=== PATIENT | female | born 1940 | race Caucasian/White ===

== ENCOUNTER → 2023-02-26 10:10 | Inpatient (IN) | payer MEDICARE, SELFPAY, BC ==
[2021-12-27] MEDS: AMLODIPINE 10 MG TABLET PO (07:33)
[2021-12-27] MEDS: BUSPIRONE 10 MG TABLET PO ×2 (07:33→16:14)
[2021-12-27] MEDS: lisinopriL 40 MG TABLET PO (07:33)
[2021-12-27] MEDS: FUROSEMIDE 20 MG TABLET PO (07:33)
[2021-12-27] MEDS: ASPIRIN EC 325 MG TABLET PO (07:33)
[2021-12-27] MEDS: FLUOXETINE HCL 20 MG CAPSULE PO (07:33)
[2021-12-27] MEDS: FLUOXETINE HCL 40 MG CAPSULE PO (07:33)
[2021-12-27] MEDS: METOPROLOL TARTRATE 50 MG TABLET PO ×2 (07:34→16:16)
[2021-12-27] MEDS: ROSUVASTATIN CALCIUM 20 MG TABLET PO (07:34)
[2021-12-27] MEDS: PRESERVISION AREDS 1 EACH PO ×2 (07:34→16:17)
[2021-12-27] MEDS: POTASSIUM CHLORIDE 20 MEQ TAB.ER.PRT 40 MEQ PO ×2 (07:34→16:18)
[2021-12-27] MEDS: TRAMADOL HCL 50 MG TABLET PO ×3 (07:35→19:41)
[2021-12-27] MEDS: INSULIN GLARGINE,HUM.REC.ANLOG 100 UNIT/ML INSULN.PEN 22 UNIT SUBCUT (08:28)
[2021-12-27 16:00] VITALS: TEMP 36.8; O2SAT 97
[2021-12-28] MEDS: AMLODIPINE 10 MG TABLET PO (08:46)
[2021-12-28] MEDS: INSULIN GLARGINE,HUM.REC.ANLOG 100 UNIT/ML INSULN.PEN 22 UNIT SUBCUT (08:46)
[2021-12-28] MEDS: BUSPIRONE 10 MG TABLET PO ×2 (08:46→15:39)
[2021-12-28] MEDS: ASPIRIN EC 325 MG TABLET PO (08:46)
[2021-12-28] MEDS: FLUOXETINE HCL 40 MG CAPSULE PO (08:47)
[2021-12-28] MEDS: lisinopriL 40 MG TABLET PO (08:47)
[2021-12-28] MEDS: FUROSEMIDE 20 MG TABLET PO (08:47)
[2021-12-28] MEDS: METOPROLOL TARTRATE 50 MG TABLET PO ×2 (08:47→15:39)
[2021-12-28] MEDS: ROSUVASTATIN CALCIUM 20 MG TABLET PO (08:48)
[2021-12-28] MEDS: FLUOXETINE HCL 20 MG CAPSULE PO (08:48)
[2021-12-28] MEDS: POTASSIUM CHLORIDE 20 MEQ TAB.ER.PRT 40 MEQ PO ×2 (08:48→15:40)
[2021-12-28] MEDS: PRESERVISION AREDS 1 EACH PO ×2 (08:48→15:39)
[2021-12-28] MEDS: TRAMADOL HCL 50 MG TABLET PO ×3 (08:48→20:34)
[2021-12-28 16:00] VITALS: TEMP 35.6; O2SAT 95
[2021-12-29] MEDS: AMLODIPINE 10 MG TABLET PO (08:42)
[2021-12-29] MEDS: ASPIRIN EC 325 MG TABLET PO (08:43)
[2021-12-29] MEDS: FUROSEMIDE 20 MG TABLET PO (08:43)
[2021-12-29] MEDS: BUSPIRONE 10 MG TABLET PO ×2 (08:43→15:04)
[2021-12-29] MEDS: FLUOXETINE HCL 20 MG CAPSULE PO (08:43)
[2021-12-29] MEDS: lisinopriL 40 MG TABLET PO (08:43)
[2021-12-29] MEDS: FLUOXETINE HCL 40 MG CAPSULE PO (08:43)
[2021-12-29] MEDS: METOPROLOL TARTRATE 50 MG TABLET PO ×2 (08:44→15:04)
[2021-12-29] MEDS: POTASSIUM CHLORIDE 20 MEQ TAB.ER.PRT 40 MEQ PO ×2 (08:44→15:05)
[2021-12-29] MEDS: PRESERVISION AREDS 1 EACH PO ×2 (08:44→15:04)
[2021-12-29] MEDS: ROSUVASTATIN CALCIUM 20 MG TABLET PO (08:44)
[2021-12-29] MEDS: INSULIN GLARGINE,HUM.REC.ANLOG 100 UNIT/ML INSULN.PEN 22 UNIT SUBCUT (08:45)
[2021-12-29] MEDS: TRAMADOL HCL 50 MG TABLET PO ×3 (08:45→20:43)
--- NOTE | 2021-12-29 14:37 | PC.PHA ---
Pharmacy Review ~ Tramadol prn needed minimally in past two months. Scheduled pregabalin and tramadol for pain management. Blood pressures continue to run higher than normal so amlodipine, metoprolol, furosemide and lisinopril continue to be indicated. Potassium 40 meq bid also profiled. Patient also continues on insulins, asa 325 mg and rosuvastatin.
[2021-12-29 16:00] VITALS: TEMP 35.4; O2SAT 95
[2021-12-30] MEDS: FLUOXETINE HCL 40 MG CAPSULE PO (07:46)
[2021-12-30] MEDS: ASPIRIN EC 325 MG TABLET PO (07:46)
[2021-12-30] MEDS: AMLODIPINE 10 MG TABLET PO (07:46)
[2021-12-30] MEDS: BUSPIRONE 10 MG TABLET PO ×2 (07:46→15:06)
[2021-12-30] MEDS: INSULIN GLARGINE,HUM.REC.ANLOG 100 UNIT/ML INSULN.PEN 22 UNIT SUBCUT (07:46)
[2021-12-30] MEDS: PRESERVISION AREDS 1 EACH PO ×2 (07:47→15:06)
[2021-12-30] MEDS: lisinopriL 40 MG TABLET PO (07:47)
[2021-12-30] MEDS: FLUOXETINE HCL 20 MG CAPSULE PO (07:47)
[2021-12-30] MEDS: FUROSEMIDE 20 MG TABLET PO (07:47)
[2021-12-30] MEDS: METOPROLOL TARTRATE 50 MG TABLET PO ×2 (07:47→15:06)
[2021-12-30] MEDS: TRAMADOL HCL 50 MG TABLET PO ×3 (07:47→19:39)
[2021-12-30] MEDS: POTASSIUM CHLORIDE 20 MEQ TAB.ER.PRT 40 MEQ PO ×2 (07:47→15:07)
[2021-12-30] MEDS: ROSUVASTATIN CALCIUM 20 MG TABLET PO (07:47)
[2021-12-30 16:52] VITALS: TEMP 35.5; O2SAT 98
[2021-12-30 16:53] VITALS: BP 148/85; PULSE 62; RESP 18; TEMP 35.5; O2SAT 96
[2021-12-31] MEDS: AMLODIPINE 10 MG TABLET PO (07:34)
[2021-12-31] MEDS: ASPIRIN EC 325 MG TABLET PO (07:35)
[2021-12-31] MEDS: FLUOXETINE HCL 40 MG CAPSULE PO (07:35)
[2021-12-31] MEDS: BUSPIRONE 10 MG TABLET PO ×2 (07:35→15:37)
[2021-12-31] MEDS: FUROSEMIDE 20 MG TABLET PO (07:35)
[2021-12-31] MEDS: METOPROLOL TARTRATE 50 MG TABLET PO ×2 (07:35→15:37)
[2021-12-31] MEDS: lisinopriL 40 MG TABLET PO (07:35)
[2021-12-31] MEDS: FLUOXETINE HCL 20 MG CAPSULE PO (07:35)
[2021-12-31] MEDS: INSULIN GLARGINE,HUM.REC.ANLOG 100 UNIT/ML INSULN.PEN 22 UNIT SUBCUT (07:35)
[2021-12-31] MEDS: PRESERVISION AREDS 1 EACH PO ×2 (07:35→15:37)
[2021-12-31] MEDS: POTASSIUM CHLORIDE 20 MEQ TAB.ER.PRT 40 MEQ PO ×2 (07:36→15:37)
[2021-12-31] MEDS: TRAMADOL HCL 50 MG TABLET PO ×3 (07:36→19:16)
[2021-12-31] MEDS: ROSUVASTATIN CALCIUM 20 MG TABLET PO (07:36)
[2021-12-31 16:00] VITALS: TEMP 35.9; O2SAT 96
[2022-01-01] MEDS: ASPIRIN EC 325 MG TABLET PO (07:49)
[2022-01-01] MEDS: AMLODIPINE 10 MG TABLET PO (07:49)
[2022-01-01] MEDS: ROSUVASTATIN CALCIUM 20 MG TABLET PO (07:50)
[2022-01-01] MEDS: FLUOXETINE HCL 20 MG CAPSULE PO (07:50)
[2022-01-01] MEDS: FLUOXETINE HCL 40 MG CAPSULE PO (07:50)
[2022-01-01] MEDS: METOPROLOL TARTRATE 50 MG TABLET PO ×2 (07:50→15:02)
[2022-01-01] MEDS: PRESERVISION AREDS 1 EACH PO ×2 (07:50→15:02)
[2022-01-01] MEDS: FUROSEMIDE 20 MG TABLET PO (07:50)
[2022-01-01] MEDS: INSULIN GLARGINE,HUM.REC.ANLOG 100 UNIT/ML INSULN.PEN 22 UNIT SUBCUT (07:50)
[2022-01-01] MEDS: POTASSIUM CHLORIDE 20 MEQ TAB.ER.PRT 40 MEQ PO ×2 (07:50→15:02)
[2022-01-01] MEDS: BUSPIRONE 10 MG TABLET PO ×2 (07:50→15:02)
[2022-01-01] MEDS: lisinopriL 40 MG TABLET PO (07:50)
[2022-01-01] MEDS: TRAMADOL HCL 50 MG TABLET PO ×3 (07:50→19:06)
[2022-01-01 16:00] VITALS: TEMP 35.9; O2SAT 94
[2022-01-01] MEDS: MAG HYDROX/ALUMINUM HYD/SIMETH 30 ML ORAL.SUSP PO (16:13)
--- NOTE | 2022-01-01 21:54 | PC.NURSE ---
Status: ANISH reported scant amount of blood when wiping bottom. Resident was sitting on toilet for over 15 minutes attempting BM. Has history of hemorrhoids. Vault Installer did not observe any bleeding while on toilet while getting ready for bed this evening. Will continue to monitor.
[2022-01-02] MEDS: AMLODIPINE 10 MG TABLET PO (07:46)
[2022-01-02] MEDS: INSULIN GLARGINE,HUM.REC.ANLOG 100 UNIT/ML INSULN.PEN 22 UNIT SUBCUT (07:46)
[2022-01-02] MEDS: ASPIRIN EC 325 MG TABLET PO (07:46)
[2022-01-02] MEDS: FUROSEMIDE 20 MG TABLET PO (07:47)
[2022-01-02] MEDS: FLUOXETINE HCL 40 MG CAPSULE PO (07:47)
[2022-01-02] MEDS: BUSPIRONE 10 MG TABLET PO ×2 (07:47→15:17)
[2022-01-02] MEDS: FLUOXETINE HCL 20 MG CAPSULE PO (07:47)
[2022-01-02] MEDS: lisinopriL 40 MG TABLET PO (07:48)
[2022-01-02] MEDS: METOPROLOL TARTRATE 50 MG TABLET PO ×2 (07:48→15:17)
[2022-01-02] MEDS: PRESERVISION AREDS 1 EACH PO ×2 (07:48→15:17)
[2022-01-02] MEDS: POTASSIUM CHLORIDE 20 MEQ TAB.ER.PRT 40 MEQ PO ×2 (07:49→15:17)
[2022-01-02] MEDS: ROSUVASTATIN CALCIUM 20 MG TABLET PO (07:49)
[2022-01-02] MEDS: TRAMADOL HCL 50 MG TABLET PO ×3 (07:49→19:17)
[2022-01-02 16:23] VITALS: TEMP 35.7; O2SAT 96
[2022-01-03] MEDS: AMLODIPINE 10 MG TABLET PO (07:58)
[2022-01-03] MEDS: ASPIRIN EC 325 MG TABLET PO (07:58)
[2022-01-03] MEDS: FLUOXETINE HCL 20 MG CAPSULE PO (07:59)
[2022-01-03] MEDS: INSULIN GLARGINE,HUM.REC.ANLOG 100 UNIT/ML INSULN.PEN 22 UNIT SUBCUT (07:59)
[2022-01-03] MEDS: lisinopriL 40 MG TABLET PO (07:59)
[2022-01-03] MEDS: BUSPIRONE 10 MG TABLET PO ×2 (07:59→15:43)
[2022-01-03] MEDS: METOPROLOL TARTRATE 50 MG TABLET PO ×2 (07:59→15:43)
[2022-01-03] MEDS: FUROSEMIDE 20 MG TABLET PO (07:59)
[2022-01-03] MEDS: FLUOXETINE HCL 40 MG CAPSULE PO (07:59)
[2022-01-03] MEDS: PRESERVISION AREDS 1 EACH PO ×2 (08:01→15:43)
[2022-01-03] MEDS: POTASSIUM CHLORIDE 20 MEQ TAB.ER.PRT 40 MEQ PO ×2 (08:01→15:43)
[2022-01-03] MEDS: ROSUVASTATIN CALCIUM 20 MG TABLET PO (08:01)
[2022-01-03] MEDS: TRAMADOL HCL 50 MG TABLET PO ×3 (08:02→19:53)
[2022-01-03 16:00] VITALS: TEMP 36.1; O2SAT 98
[2022-01-04] MEDS: AMLODIPINE 10 MG TABLET PO (07:46)
[2022-01-04] MEDS: FLUOXETINE HCL 40 MG CAPSULE PO (07:47)
[2022-01-04] MEDS: FLUOXETINE HCL 20 MG CAPSULE PO (07:47)
[2022-01-04] MEDS: BUSPIRONE 10 MG TABLET PO ×2 (07:47→15:30)
[2022-01-04] MEDS: ASPIRIN EC 325 MG TABLET PO (07:47)
[2022-01-04] MEDS: PRESERVISION AREDS 1 EACH PO ×2 (07:49→15:30)
[2022-01-04] MEDS: FUROSEMIDE 20 MG TABLET PO (07:49)
[2022-01-04] MEDS: lisinopriL 40 MG TABLET PO (07:49)
[2022-01-04] MEDS: METOPROLOL TARTRATE 50 MG TABLET PO ×2 (07:49→15:30)
[2022-01-04] MEDS: ROSUVASTATIN CALCIUM 20 MG TABLET PO (07:50)
[2022-01-04] MEDS: POTASSIUM CHLORIDE 20 MEQ TAB.ER.PRT 40 MEQ PO ×2 (07:50→15:31)
[2022-01-04] MEDS: TRAMADOL HCL 50 MG TABLET PO ×3 (07:51→20:01)
[2022-01-04] MEDS: INSULIN GLARGINE,HUM.REC.ANLOG 100 UNIT/ML INSULN.PEN 22 UNIT SUBCUT (08:24)
[2022-01-04 16:00] VITALS: TEMP 35.9; O2SAT 96
--- NOTE | 2022-01-05 02:18 | PC.NURSE ---
Week #1 Care Plan problems 1-19 and Temporary Care Plan reveiwed, no changes made, noting added. Resident sleeps through the night. Receives scheduled Ultram 50mg TID for pain. VS reviewed and are within normal range.
[2022-01-05] MEDS: AMLODIPINE 10 MG TABLET PO (07:22)
[2022-01-05] MEDS: ASPIRIN EC 325 MG TABLET PO (07:22)
[2022-01-05] MEDS: FLUOXETINE HCL 20 MG CAPSULE PO (07:23)
[2022-01-05] MEDS: METOPROLOL TARTRATE 50 MG TABLET PO ×2 (07:23→15:27)
[2022-01-05] MEDS: FUROSEMIDE 20 MG TABLET PO (07:23)
[2022-01-05] MEDS: TRAMADOL HCL 50 MG TABLET PO ×3 (07:23→19:19)
[2022-01-05] MEDS: lisinopriL 40 MG TABLET PO (07:23)
[2022-01-05] MEDS: ROSUVASTATIN CALCIUM 20 MG TABLET PO (07:23)
[2022-01-05] MEDS: BUSPIRONE 10 MG TABLET PO ×2 (07:23→15:27)
[2022-01-05] MEDS: POTASSIUM CHLORIDE 20 MEQ TAB.ER.PRT 40 MEQ PO ×2 (07:23→15:28)
[2022-01-05] MEDS: FLUOXETINE HCL 40 MG CAPSULE PO (07:23)
[2022-01-05] MEDS: PRESERVISION AREDS 1 EACH PO ×2 (07:23→15:28)
[2022-01-05] MEDS: INSULIN GLARGINE,HUM.REC.ANLOG 100 UNIT/ML INSULN.PEN 22 UNIT SUBCUT (07:26)
--- NOTE | 2022-01-05 12:41 | PC.NURSE ---
Week #1: Care Plan problems #1-19 and temporary care plan reviewed. No changes made and nothing added to care plan. Receives Tramadol 50 mg AM and PM for pain management. Resident denies pain, and no pain reported at this time. Due to right sided weakness, resident is extensive assist of one for all ADLs including bathing, dressing, and glooming. Resident is able to brush her teeth after set-up assistance. Nutrition: Independent with eating after staff set-up meal trays and open milk/juice cartons and pour content in drinking glasses for resident. No changes in eating pattern, no decrease appetite, choking, or swallowing difficulty noted so far.
[2022-01-05 16:00] VITALS: TEMP 36.1; O2SAT 95
[2022-01-05 21:35] VITALS: BP 152/77; PULSE 61; RESP 18; TEMP 36.1; O2SAT 95
[2022-01-06] MEDS: AMLODIPINE 10 MG TABLET PO (07:40)
[2022-01-06] MEDS: ASPIRIN EC 325 MG TABLET PO (07:40)
[2022-01-06] MEDS: BUSPIRONE 10 MG TABLET PO ×2 (07:40→15:16)
[2022-01-06] MEDS: METOPROLOL TARTRATE 50 MG TABLET PO ×2 (07:41→15:16)
[2022-01-06] MEDS: FLUOXETINE HCL 20 MG CAPSULE PO (07:41)
[2022-01-06] MEDS: lisinopriL 40 MG TABLET PO (07:41)
[2022-01-06] MEDS: FUROSEMIDE 20 MG TABLET PO (07:41)
[2022-01-06] MEDS: FLUOXETINE HCL 40 MG CAPSULE PO (07:41)
[2022-01-06] MEDS: POTASSIUM CHLORIDE 20 MEQ TAB.ER.PRT 40 MEQ PO ×2 (07:42→15:17)
[2022-01-06] MEDS: PRESERVISION AREDS 1 EACH PO ×2 (07:42→15:17)
[2022-01-06] MEDS: ROSUVASTATIN CALCIUM 20 MG TABLET PO (07:42)
[2022-01-06] MEDS: TRAMADOL HCL 50 MG TABLET PO ×3 (07:43→21:16)
[2022-01-06] MEDS: INSULIN GLARGINE,HUM.REC.ANLOG 100 UNIT/ML INSULN.PEN 22 UNIT SUBCUT (07:53)
[2022-01-06 21:35] VITALS: TEMP 35.7; O2SAT 96
[2022-01-07] MEDS: FLUOXETINE HCL 40 MG CAPSULE PO (07:48)
[2022-01-07] MEDS: BUSPIRONE 10 MG TABLET PO ×2 (07:48→15:24)
[2022-01-07] MEDS: AMLODIPINE 10 MG TABLET PO (07:48)
[2022-01-07] MEDS: ASPIRIN EC 325 MG TABLET PO (07:48)
[2022-01-07] MEDS: METOPROLOL TARTRATE 50 MG TABLET PO ×2 (07:49→15:24)
[2022-01-07] MEDS: FUROSEMIDE 20 MG TABLET PO (07:49)
[2022-01-07] MEDS: FLUOXETINE HCL 20 MG CAPSULE PO (07:49)
[2022-01-07] MEDS: PRESERVISION AREDS 1 EACH PO ×2 (07:49→15:24)
[2022-01-07] MEDS: lisinopriL 40 MG TABLET PO (07:49)
[2022-01-07] MEDS: POTASSIUM CHLORIDE 20 MEQ TAB.ER.PRT 40 MEQ PO ×2 (07:51→15:24)
[2022-01-07] MEDS: ROSUVASTATIN CALCIUM 20 MG TABLET PO (07:51)
[2022-01-07] MEDS: TRAMADOL HCL 50 MG TABLET PO ×3 (07:51→20:54)
[2022-01-07] MEDS: INSULIN GLARGINE,HUM.REC.ANLOG 100 UNIT/ML INSULN.PEN 22 UNIT SUBCUT (07:55)
[2022-01-07 18:14] VITALS: TEMP 36.3; O2SAT 97
--- NOTE | 2022-01-07 21:50 | PC.NURSE ---
Stoma: Resident has increased bleeding around the suprapubic catheter site and, some blood in the urine. Monitoring.
--- NOTE | 2022-01-08 06:56 | PC.NURSE ---
Status/catheter---only had dried blood on SP cath dressing. No blood noted in urine.
[2022-01-08] MEDS: INSULIN GLARGINE,HUM.REC.ANLOG 100 UNIT/ML INSULN.PEN 22 UNIT SUBCUT (07:51)
[2022-01-08] MEDS: ASPIRIN EC 325 MG TABLET PO (07:51)
[2022-01-08] MEDS: AMLODIPINE 10 MG TABLET PO (07:51)
[2022-01-08] MEDS: BUSPIRONE 10 MG TABLET PO ×2 (07:52→15:46)
[2022-01-08] MEDS: FLUOXETINE HCL 20 MG CAPSULE PO (07:52)
[2022-01-08] MEDS: FLUOXETINE HCL 40 MG CAPSULE PO (07:52)
[2022-01-08] MEDS: FUROSEMIDE 20 MG TABLET PO (07:52)
[2022-01-08] MEDS: lisinopriL 40 MG TABLET PO (07:52)
[2022-01-08] MEDS: METOPROLOL TARTRATE 50 MG TABLET PO ×2 (07:52→15:46)
[2022-01-08] MEDS: POTASSIUM CHLORIDE 20 MEQ TAB.ER.PRT 40 MEQ PO ×2 (07:53→15:47)
[2022-01-08] MEDS: PRESERVISION AREDS 1 EACH PO ×2 (07:53→15:47)
[2022-01-08] MEDS: ROSUVASTATIN CALCIUM 20 MG TABLET PO (07:54)
[2022-01-08] MEDS: TRAMADOL HCL 50 MG TABLET PO ×3 (07:54→20:21)
[2022-01-08 16:00] VITALS: TEMP 36.2; O2SAT 97
[2022-01-09] MEDS: FLUOXETINE HCL 40 MG CAPSULE PO (07:40)
[2022-01-09] MEDS: ASPIRIN EC 325 MG TABLET PO (07:40)
[2022-01-09] MEDS: BUSPIRONE 10 MG TABLET PO ×2 (07:40→15:09)
[2022-01-09] MEDS: METOPROLOL TARTRATE 50 MG TABLET PO ×2 (07:41→15:09)
[2022-01-09] MEDS: ROSUVASTATIN CALCIUM 20 MG TABLET PO (07:41)
[2022-01-09] MEDS: lisinopriL 40 MG TABLET PO (07:41)
[2022-01-09] MEDS: PRESERVISION AREDS 1 EACH PO ×2 (07:41→15:09)
[2022-01-09] MEDS: FUROSEMIDE 20 MG TABLET PO (07:41)
[2022-01-09] MEDS: TRAMADOL HCL 50 MG TABLET PO ×3 (07:41→20:54)
[2022-01-09] MEDS: POTASSIUM CHLORIDE 20 MEQ TAB.ER.PRT 40 MEQ PO ×2 (07:41→15:09)
[2022-01-09] MEDS: FLUOXETINE HCL 20 MG CAPSULE PO (07:41)
[2022-01-09] MEDS: AMLODIPINE 10 MG TABLET PO (08:29)
[2022-01-09] MEDS: INSULIN GLARGINE,HUM.REC.ANLOG 100 UNIT/ML INSULN.PEN 22 UNIT SUBCUT (08:29)
[2022-01-09 21:29] VITALS: TEMP 36.7; O2SAT 98
[2022-01-10] MEDS: INSULIN GLARGINE,HUM.REC.ANLOG 100 UNIT/ML INSULN.PEN 22 UNIT SUBCUT (08:34)
[2022-01-10] MEDS: METOPROLOL TARTRATE 50 MG TABLET PO ×2 (08:34→15:46)
[2022-01-10] MEDS: ASPIRIN EC 325 MG TABLET PO (08:34)
[2022-01-10] MEDS: BUSPIRONE 10 MG TABLET PO ×2 (08:34→15:46)
[2022-01-10] MEDS: AMLODIPINE 10 MG TABLET PO (08:34)
[2022-01-10] MEDS: FUROSEMIDE 20 MG TABLET PO (08:34)
[2022-01-10] MEDS: lisinopriL 40 MG TABLET PO (08:34)
[2022-01-10] MEDS: FLUOXETINE HCL 20 MG CAPSULE PO (08:34)
[2022-01-10] MEDS: FLUOXETINE HCL 40 MG CAPSULE PO (08:34)
[2022-01-10] MEDS: ROSUVASTATIN CALCIUM 20 MG TABLET PO (08:35)
[2022-01-10] MEDS: TRAMADOL HCL 50 MG TABLET PO ×3 (08:35→19:52)
[2022-01-10] MEDS: POTASSIUM CHLORIDE 20 MEQ TAB.ER.PRT 40 MEQ PO ×2 (08:35→15:47)
[2022-01-10] MEDS: PRESERVISION AREDS 1 EACH PO ×2 (08:35→15:47)
[2022-01-10 13:09] VITALS: TEMP 37; O2SAT 96
[2022-01-10 16:00] VITALS: TEMP 36.9; O2SAT 96
[2022-01-10 23:00] VITALS: TEMP 36.1; O2SAT 95
--- NOTE | 2022-01-11 02:52 | PC.NURSE ---
Week #2---care plan problems #20-29 reviewed. No changes made. Nothing added to temporary care plan. Rarely gets out of bed at [facility]. If she does, is transferred with Medistand and assist of 1. Most of the noc sleeps on her back. Refuses to turn on her side. Does have her own memory foam topper on bed. Pillow under her lower legs when she will allow it. Top siderails up. Falls---no falls this past month. Is a high fall risk according to assessment done on 12/01/21.
[2022-01-11 07:00] VITALS: TEMP 36.8; O2SAT 95
[2022-01-11] MEDS: ASPIRIN EC 325 MG TABLET PO (08:10)
[2022-01-11] MEDS: INSULIN GLARGINE,HUM.REC.ANLOG 100 UNIT/ML INSULN.PEN 22 UNIT SUBCUT (08:10)
[2022-01-11] MEDS: AMLODIPINE 10 MG TABLET PO (08:10)
[2022-01-11] MEDS: FLUOXETINE HCL 40 MG CAPSULE PO (08:11)
[2022-01-11] MEDS: PRESERVISION AREDS 1 EACH PO ×2 (08:11→15:37)
[2022-01-11] MEDS: FLUOXETINE HCL 20 MG CAPSULE PO (08:11)
[2022-01-11] MEDS: ROSUVASTATIN CALCIUM 20 MG TABLET PO (08:11)
[2022-01-11] MEDS: TRAMADOL HCL 50 MG TABLET PO ×3 (08:11→20:48)
[2022-01-11] MEDS: BUSPIRONE 10 MG TABLET PO ×2 (08:11→15:37)
[2022-01-11] MEDS: FUROSEMIDE 20 MG TABLET PO (08:11)
[2022-01-11] MEDS: METOPROLOL TARTRATE 50 MG TABLET PO ×2 (08:11→15:37)
[2022-01-11] MEDS: lisinopriL 40 MG TABLET PO (08:11)
[2022-01-11] MEDS: POTASSIUM CHLORIDE 20 MEQ TAB.ER.PRT 40 MEQ PO ×2 (08:11→15:37)
--- NOTE | 2022-01-11 16:13 | PC.SPIRITC ---
Tailor Apprentice provided visit for support, connection, and to assist resident in writing a Get Well card to her sister, Celine.
[2022-01-11 21:56] VITALS: TEMP 36.6; O2SAT 96
[2022-01-11 23:00] VITALS: TEMP 35.8; O2SAT 97
[2022-01-12] MEDS: AMLODIPINE 10 MG TABLET PO (07:30)
[2022-01-12] MEDS: PRESERVISION AREDS 1 EACH PO ×2 (07:30→15:25)
[2022-01-12] MEDS: FLUOXETINE HCL 40 MG CAPSULE PO (07:30)
[2022-01-12] MEDS: FLUOXETINE HCL 20 MG CAPSULE PO (07:30)
[2022-01-12] MEDS: ASPIRIN EC 325 MG TABLET PO (07:30)
[2022-01-12] MEDS: BUSPIRONE 10 MG TABLET PO ×2 (07:30→15:25)
[2022-01-12] MEDS: lisinopriL 40 MG TABLET PO (07:30)
[2022-01-12] MEDS: METOPROLOL TARTRATE 50 MG TABLET PO ×2 (07:30→15:25)
[2022-01-12] MEDS: FUROSEMIDE 20 MG TABLET PO (07:30)
[2022-01-12] MEDS: ROSUVASTATIN CALCIUM 20 MG TABLET PO (07:31)
[2022-01-12] MEDS: POTASSIUM CHLORIDE 20 MEQ TAB.ER.PRT 40 MEQ PO ×2 (07:31→15:30)
[2022-01-12] MEDS: TRAMADOL HCL 50 MG TABLET PO ×3 (07:38→20:32)
[2022-01-12] MEDS: INSULIN GLARGINE,HUM.REC.ANLOG 100 UNIT/ML INSULN.PEN 22 UNIT SUBCUT (07:38)
[2022-01-12 10:36] VITALS: TEMP 36.5; O2SAT 97
--- NOTE | 2022-01-12 13:16 | PC.NURSE ---
Week #2: Care plan problems - and temporary care plan reviewed. No changes made. Nothing added to temporary care plan. Resident is non ambulatory. Transfers with a medi stand and one assist at all times. Requires assist getting in/out of bed, once in bed is able to reposition self. 2 side rails up in bed to aid for positioning. Propelled by staff to all destinations. No alarms. Fall: No falls this past month. Is a high fall risk according to assessment done on 12/01/21.
[2022-01-12 16:44] VITALS: BP 165/81; PULSE 59; RESP 18; TEMP 36.6; O2SAT 95
[2022-01-12 21:33] VITALS: TEMP 36.6; O2SAT 96
--- NOTE | 2022-01-12 21:55 | PC.NURSE ---
Status: Resident complained to proposal writer that she was having pain i the anus, proposal writer assessed the are and, found that it was slightly swollen, color is normal. Sensi care put in room to be used as needed until better.
[2022-01-12 23:00] VITALS: TEMP 35.8; O2SAT 97
[2022-01-13 00:03] LABS: SARS PCR* Negative SARS-CoV-2 (Negative)
--- NOTE | 2022-01-13 04:08 | PC.NURSE ---
Status/bowels----Res. was up to the BR at 0000. Did not have a BM. Rectal check done and no stool felt in rectum. Does appear to have some small hemorrhoids. Bottom is blotchy purple in color. Quarter sized hard area where previous open area was. Res. did agree to sleep on her left side for a while tonight.
[2022-01-13 07:00] VITALS: TEMP 36.6; O2SAT 97
[2022-01-13] MEDS: FLUOXETINE HCL 20 MG CAPSULE PO (07:55)
[2022-01-13] MEDS: BUSPIRONE 10 MG TABLET PO ×2 (07:55→15:11)
[2022-01-13] MEDS: INSULIN GLARGINE,HUM.REC.ANLOG 100 UNIT/ML INSULN.PEN 22 UNIT SUBCUT (07:55)
[2022-01-13] MEDS: ASPIRIN EC 325 MG TABLET PO (07:55)
[2022-01-13] MEDS: FLUOXETINE HCL 40 MG CAPSULE PO (07:55)
[2022-01-13] MEDS: AMLODIPINE 10 MG TABLET PO (07:55)
[2022-01-13] MEDS: PRESERVISION AREDS 1 EACH PO ×2 (07:56→15:11)
[2022-01-13] MEDS: TRAMADOL HCL 50 MG TABLET PO ×3 (07:56→20:48)
[2022-01-13] MEDS: POTASSIUM CHLORIDE 20 MEQ TAB.ER.PRT 40 MEQ PO ×2 (07:56→15:11)
[2022-01-13] MEDS: METOPROLOL TARTRATE 50 MG TABLET PO ×2 (07:56→15:11)
[2022-01-13] MEDS: lisinopriL 40 MG TABLET PO (07:56)
[2022-01-13] MEDS: ROSUVASTATIN CALCIUM 20 MG TABLET PO (07:56)
[2022-01-13] MEDS: FUROSEMIDE 20 MG TABLET PO (07:56)
[2022-01-13 21:18] VITALS: TEMP 36.4; O2SAT 96
[2022-01-13 23:00] VITALS: TEMP 36.4; O2SAT 94
[2022-01-14 07:00] VITALS: TEMP 37.3; O2SAT 96
[2022-01-14] MEDS: lisinopriL 40 MG TABLET PO (08:05)
[2022-01-14] MEDS: FUROSEMIDE 20 MG TABLET PO (08:05)
[2022-01-14] MEDS: PRESERVISION AREDS 1 EACH PO ×2 (08:05→15:16)
[2022-01-14] MEDS: FLUOXETINE HCL 20 MG CAPSULE PO (08:05)
[2022-01-14] MEDS: METOPROLOL TARTRATE 50 MG TABLET PO ×2 (08:05→15:16)
[2022-01-14] MEDS: ASPIRIN EC 325 MG TABLET PO (08:05)
[2022-01-14] MEDS: FLUOXETINE HCL 40 MG CAPSULE PO (08:05)
[2022-01-14] MEDS: AMLODIPINE 10 MG TABLET PO (08:05)
[2022-01-14] MEDS: BUSPIRONE 10 MG TABLET PO ×2 (08:05→15:16)
[2022-01-14] MEDS: INSULIN GLARGINE,HUM.REC.ANLOG 100 UNIT/ML INSULN.PEN 22 UNIT SUBCUT (08:05)
[2022-01-14] MEDS: POTASSIUM CHLORIDE 20 MEQ TAB.ER.PRT 40 MEQ PO ×2 (08:05→15:16)
[2022-01-14] MEDS: TRAMADOL HCL 50 MG TABLET PO ×3 (08:06→20:41)
[2022-01-14] MEDS: ROSUVASTATIN CALCIUM 20 MG TABLET PO (08:06)
[2022-01-14] MEDS: MAG HYDROX/ALUMINUM HYD/SIMETH 30 ML ORAL.SUSP PO (16:10)
[2022-01-14 21:25] VITALS: TEMP 36.5; O2SAT 95
[2022-01-15 03:39] VITALS: TEMP 36.6; O2SAT 96
[2022-01-15 07:00] VITALS: TEMP 36.9; O2SAT 97
[2022-01-15] MEDS: AMLODIPINE 10 MG TABLET PO (07:44)
[2022-01-15] MEDS: INSULIN GLARGINE,HUM.REC.ANLOG 100 UNIT/ML INSULN.PEN 22 UNIT SUBCUT (07:44)
[2022-01-15] MEDS: ASPIRIN EC 325 MG TABLET PO (07:44)
[2022-01-15] MEDS: POTASSIUM CHLORIDE 20 MEQ TAB.ER.PRT 40 MEQ PO ×2 (07:45→15:49)
[2022-01-15] MEDS: TRAMADOL HCL 50 MG TABLET PO ×3 (07:45→20:42)
[2022-01-15] MEDS: METOPROLOL TARTRATE 50 MG TABLET PO ×2 (07:45→15:49)
[2022-01-15] MEDS: FLUOXETINE HCL 20 MG CAPSULE PO (07:45)
[2022-01-15] MEDS: BUSPIRONE 10 MG TABLET PO ×2 (07:45→15:48)
[2022-01-15] MEDS: ROSUVASTATIN CALCIUM 20 MG TABLET PO (07:45)
[2022-01-15] MEDS: FUROSEMIDE 20 MG TABLET PO (07:45)
[2022-01-15] MEDS: FLUOXETINE HCL 40 MG CAPSULE PO (07:45)
[2022-01-15] MEDS: PRESERVISION AREDS 1 EACH PO ×2 (07:45→15:49)
[2022-01-15] MEDS: lisinopriL 40 MG TABLET PO (07:45)
[2022-01-15 21:11] VITALS: TEMP 36.6; O2SAT 97
[2022-01-15 23:00] VITALS: TEMP 36.6; O2SAT 95
[2022-01-16] MEDS: AMLODIPINE 10 MG TABLET PO (07:45)
[2022-01-16] MEDS: FUROSEMIDE 20 MG TABLET PO (07:46)
[2022-01-16] MEDS: METOPROLOL TARTRATE 50 MG TABLET PO ×2 (07:46→15:23)
[2022-01-16] MEDS: ASPIRIN EC 325 MG TABLET PO (07:46)
[2022-01-16] MEDS: BUSPIRONE 10 MG TABLET PO ×2 (07:46→15:23)
[2022-01-16] MEDS: FLUOXETINE HCL 40 MG CAPSULE PO (07:46)
[2022-01-16] MEDS: FLUOXETINE HCL 20 MG CAPSULE PO (07:46)
[2022-01-16] MEDS: INSULIN GLARGINE,HUM.REC.ANLOG 100 UNIT/ML INSULN.PEN 22 UNIT SUBCUT (07:46)
[2022-01-16] MEDS: lisinopriL 40 MG TABLET PO (07:46)
[2022-01-16] MEDS: PRESERVISION AREDS 1 EACH PO ×2 (07:46→15:23)
[2022-01-16] MEDS: TRAMADOL HCL 50 MG TABLET PO ×3 (07:47→20:25)
[2022-01-16] MEDS: ROSUVASTATIN CALCIUM 20 MG TABLET PO (07:47)
[2022-01-16] MEDS: POTASSIUM CHLORIDE 20 MEQ TAB.ER.PRT 40 MEQ PO ×2 (07:47→15:23)
[2022-01-16 13:17] VITALS: TEMP 37.1; O2SAT 97
[2022-01-16 14:48] LABS: SARS PCR* Negative SARS-CoV-2 (Negative)
[2022-01-16 21:26] VITALS: TEMP 36.3; O2SAT 99
[2022-01-16 23:00] VITALS: TEMP 36.2; O2SAT 94
[2022-01-17 07:00] VITALS: TEMP 37.1; O2SAT 97
[2022-01-17] MEDS: AMLODIPINE 10 MG TABLET PO (08:06)
[2022-01-17] MEDS: INSULIN GLARGINE,HUM.REC.ANLOG 100 UNIT/ML INSULN.PEN 22 UNIT SUBCUT (08:12)
[2022-01-17] MEDS: ASPIRIN EC 325 MG TABLET PO (08:12)
[2022-01-17] MEDS: METOPROLOL TARTRATE 50 MG TABLET PO ×2 (08:13→16:08)
[2022-01-17] MEDS: lisinopriL 40 MG TABLET PO (08:13)
[2022-01-17] MEDS: BUSPIRONE 10 MG TABLET PO ×2 (08:13→16:08)
[2022-01-17] MEDS: FLUOXETINE HCL 20 MG CAPSULE PO (08:13)
[2022-01-17] MEDS: ROSUVASTATIN CALCIUM 20 MG TABLET PO (08:13)
[2022-01-17] MEDS: POTASSIUM CHLORIDE 20 MEQ TAB.ER.PRT 40 MEQ PO ×2 (08:13→16:08)
[2022-01-17] MEDS: FUROSEMIDE 20 MG TABLET PO (08:13)
[2022-01-17] MEDS: TRAMADOL HCL 50 MG TABLET PO ×3 (08:13→19:58)
[2022-01-17] MEDS: PRESERVISION AREDS 1 EACH PO ×2 (08:13→16:08)
[2022-01-17] MEDS: FLUOXETINE HCL 40 MG CAPSULE PO (08:13)
[2022-01-17 15:00] VITALS: TEMP 36.8; O2SAT 98
[2022-01-17 23:00] VITALS: TEMP 36.5; O2SAT 94
[2022-01-18] MEDS: FLUOXETINE HCL 40 MG CAPSULE PO (08:09)
[2022-01-18] MEDS: BUSPIRONE 10 MG TABLET PO ×2 (08:09→16:11)
[2022-01-18] MEDS: AMLODIPINE 10 MG TABLET PO (08:09)
[2022-01-18] MEDS: ASPIRIN EC 325 MG TABLET PO (08:09)
[2022-01-18] MEDS: FLUOXETINE HCL 20 MG CAPSULE PO (08:09)
[2022-01-18] MEDS: METOPROLOL TARTRATE 50 MG TABLET PO ×2 (08:10→16:11)
[2022-01-18] MEDS: lisinopriL 40 MG TABLET PO (08:10)
[2022-01-18] MEDS: PRESERVISION AREDS 1 EACH PO ×2 (08:10→16:11)
[2022-01-18] MEDS: FUROSEMIDE 20 MG TABLET PO (08:10)
[2022-01-18] MEDS: POTASSIUM CHLORIDE 20 MEQ TAB.ER.PRT 40 MEQ PO ×2 (08:11→16:12)
[2022-01-18] MEDS: ROSUVASTATIN CALCIUM 20 MG TABLET PO (08:11)
[2022-01-18] MEDS: TRAMADOL HCL 50 MG TABLET PO ×3 (08:13→20:38)
[2022-01-18] MEDS: INSULIN GLARGINE,HUM.REC.ANLOG 100 UNIT/ML INSULN.PEN 22 UNIT SUBCUT (08:14)
[2022-01-18 09:39] VITALS: TEMP 36.2; O2SAT 96
--- NOTE | 2022-01-18 15:44 | PC.PHA ---
Pharmacy Review ~ Patient has not needed prn tramadol thus far in December. Pregabalin 300 mg bid and tramadol 50 mg tid continue for pain medications. Long acting insulin recently adjusted. Potassium and furosemide continue as well as lisinopril 40 mg. Blood pressures could be lower considering stroke history-SBP over 140 in December.
[2022-01-18 21:44] VITALS: TEMP 36.6; O2SAT 95
--- NOTE | 2022-01-18 22:05 | PC.NURSE ---
Catheter status- Was reported that she had 350cc out in urine bag but her brief was wet. Flushed her supra pubic catheter and noc nurse will monitor for further bypassing.
[2022-01-18 23:00] VITALS: TEMP 36.3; O2SAT 92
--- NOTE | 2022-01-19 02:51 | PC.NURSE ---
#3 Weekly. Temporary care plan reviewed, no changes or additions. Care plan problems 30-39 reviewed with no changes or additions. VS reviewed, within normal range. Resident has a suprapubic catheter d/t neurogenic bladder. Is emptied and cath care Q shift. Has occasional leakage of urine. Can ask for assist to have BM. Wears a pull up.EZ stand for transfers on off toilet for BM. Has occasional incontinence of bowel.Res requests not to be bothered at night for toileting, will call when help is needed. Skin is intact.Has roho cushion in chair. Is at risk for skin breakdown d/t immobility.
[2022-01-19 07:00] VITALS: TEMP 37.2; O2SAT 97
--- NOTE | 2022-01-19 07:04 | PC.NURSE ---
Week #3: Care plan problems 30-39 and temporary care plan reviewed. No changes made. Nothing added to temporary care plan. She is usually continent of bowels, has suprapubic catheter in place connected to the leg bag during the day and is emptied by staff every shift. Mathews catheter changed monthly by staff, bag & leg bag changed q14d. Staff toilets for BM's using the medi stand. Pads, edward cares,clothing adjustment managed by staff. Skin: No issues at this time. Continue with suprapubic site dressing changes daily. Skin is checked routinely during cares and baths.
[2022-01-19] MEDS: FUROSEMIDE 20 MG TABLET PO (07:31)
[2022-01-19] MEDS: ASPIRIN EC 325 MG TABLET PO (07:31)
[2022-01-19] MEDS: AMLODIPINE 10 MG TABLET PO (07:31)
[2022-01-19] MEDS: METOPROLOL TARTRATE 50 MG TABLET PO ×2 (07:31→15:13)
[2022-01-19] MEDS: FLUOXETINE HCL 20 MG CAPSULE PO (07:31)
[2022-01-19] MEDS: INSULIN GLARGINE,HUM.REC.ANLOG 100 UNIT/ML INSULN.PEN 22 UNIT SUBCUT (07:31)
[2022-01-19] MEDS: lisinopriL 40 MG TABLET PO (07:31)
[2022-01-19] MEDS: BUSPIRONE 10 MG TABLET PO ×2 (07:31→15:13)
[2022-01-19] MEDS: FLUOXETINE HCL 40 MG CAPSULE PO (07:31)
[2022-01-19] MEDS: PRESERVISION AREDS 1 EACH PO ×2 (07:32→15:13)
[2022-01-19] MEDS: POTASSIUM CHLORIDE 20 MEQ TAB.ER.PRT 40 MEQ PO ×2 (07:32→15:13)
[2022-01-19] MEDS: ROSUVASTATIN CALCIUM 20 MG TABLET PO (07:32)
[2022-01-19] MEDS: TRAMADOL HCL 50 MG TABLET PO ×3 (07:32→20:42)
--- NOTE | 2022-01-19 09:02 | PC.SPIRITC ---
Late Entry ? met with resident for connection and support on 01/18/22.
[2022-01-19 21:26] VITALS: TEMP 36.3; O2SAT 96
[2022-01-19 23:00] VITALS: TEMP 36.1; O2SAT 94
[2022-01-20] MEDS: AMLODIPINE 10 MG TABLET PO (07:43)
[2022-01-20] MEDS: FLUOXETINE HCL 20 MG CAPSULE PO (07:43)
[2022-01-20] MEDS: FLUOXETINE HCL 40 MG CAPSULE PO (07:43)
[2022-01-20] MEDS: ASPIRIN EC 325 MG TABLET PO (07:43)
[2022-01-20] MEDS: BUSPIRONE 10 MG TABLET PO ×2 (07:43→16:35)
[2022-01-20] MEDS: lisinopriL 40 MG TABLET PO (07:44)
[2022-01-20] MEDS: FUROSEMIDE 20 MG TABLET PO (07:44)
[2022-01-20] MEDS: METOPROLOL TARTRATE 50 MG TABLET PO ×2 (07:44→16:35)
[2022-01-20] MEDS: PRESERVISION AREDS 1 EACH PO ×2 (07:45→16:35)
[2022-01-20] MEDS: ROSUVASTATIN CALCIUM 20 MG TABLET PO (07:46)
[2022-01-20] MEDS: POTASSIUM CHLORIDE 20 MEQ TAB.ER.PRT 40 MEQ PO ×2 (07:46→16:35)
[2022-01-20] MEDS: TRAMADOL HCL 50 MG TABLET PO ×3 (07:46→20:38)
[2022-01-20] MEDS: INSULIN GLARGINE,HUM.REC.ANLOG 100 UNIT/ML INSULN.PEN 22 UNIT SUBCUT (07:58)
[2022-01-20 10:13] VITALS: TEMP 36.6; O2SAT 94
[2022-01-20 21:12] VITALS: TEMP 36.6; O2SAT 96
--- NOTE | 2022-01-20 21:50 | PC.NURSE ---
Status: Resident was very upset and crying this afternoon. Stated, She is stuck in here and has no one to talk to. Indirect Fire Infantryman reminded resident that she talks on the phone with her sister from [place] usually every night. Indirect Fire Infantryman provided reassurance and comfort.
[2022-01-20 23:00] VITALS: TEMP 36.1; O2SAT 97
[2022-01-21] MEDS: ASPIRIN EC 325 MG TABLET PO (07:19)
[2022-01-21] MEDS: AMLODIPINE 10 MG TABLET PO (07:19)
[2022-01-21] MEDS: BUSPIRONE 10 MG TABLET PO ×2 (07:20→15:15)
[2022-01-21] MEDS: lisinopriL 40 MG TABLET PO (07:20)
[2022-01-21] MEDS: FLUOXETINE HCL 40 MG CAPSULE PO (07:20)
[2022-01-21] MEDS: FLUOXETINE HCL 20 MG CAPSULE PO (07:20)
[2022-01-21] MEDS: FUROSEMIDE 20 MG TABLET PO (07:20)
[2022-01-21] MEDS: METOPROLOL TARTRATE 50 MG TABLET PO ×2 (07:21→15:15)
[2022-01-21] MEDS: ROSUVASTATIN CALCIUM 20 MG TABLET PO (07:22)
[2022-01-21] MEDS: PRESERVISION AREDS 1 EACH PO ×2 (07:22→15:15)
[2022-01-21] MEDS: POTASSIUM CHLORIDE 20 MEQ TAB.ER.PRT 40 MEQ PO ×2 (07:22→15:15)
[2022-01-21] MEDS: TRAMADOL HCL 50 MG TABLET PO ×3 (07:22→20:44)
[2022-01-21] MEDS: INSULIN GLARGINE,HUM.REC.ANLOG 100 UNIT/ML INSULN.PEN 22 UNIT SUBCUT (08:04)
[2022-01-21 12:46] VITALS: TEMP 36.5; O2SAT 97
[2022-01-21] MEDS: MAGNESIUM HYDROXIDE 30 ML ORAL.SUSP PO (15:45)
[2022-01-21 16:36] VITALS: TEMP 35.7; O2SAT 96
[2022-01-21 23:00] VITALS: TEMP 36.8; O2SAT 96
[2022-01-22] MEDS: AMLODIPINE 10 MG TABLET PO (07:25)
[2022-01-22] MEDS: FLUOXETINE HCL 20 MG CAPSULE PO (07:25)
[2022-01-22] MEDS: FUROSEMIDE 20 MG TABLET PO (07:25)
[2022-01-22] MEDS: FLUOXETINE HCL 40 MG CAPSULE PO (07:25)
[2022-01-22] MEDS: ASPIRIN EC 325 MG TABLET PO (07:25)
[2022-01-22] MEDS: BUSPIRONE 10 MG TABLET PO ×2 (07:25→15:55)
[2022-01-22] MEDS: lisinopriL 40 MG TABLET PO (07:26)
[2022-01-22] MEDS: PRESERVISION AREDS 1 EACH PO ×2 (07:26→15:55)
[2022-01-22] MEDS: METOPROLOL TARTRATE 50 MG TABLET PO ×2 (07:26→15:55)
[2022-01-22] MEDS: POTASSIUM CHLORIDE 20 MEQ TAB.ER.PRT 40 MEQ PO ×2 (07:26→15:55)
[2022-01-22] MEDS: TRAMADOL HCL 50 MG TABLET PO ×3 (07:27→20:32)
[2022-01-22] MEDS: ROSUVASTATIN CALCIUM 20 MG TABLET PO (07:27)
[2022-01-22] MEDS: INSULIN GLARGINE,HUM.REC.ANLOG 100 UNIT/ML INSULN.PEN 22 UNIT SUBCUT (07:50)
[2022-01-22 09:54] VITALS: TEMP 36.6; O2SAT 95
--- NOTE | 2022-01-22 09:58 | PC.NURSE ---
Catheter: Catheter was changed this shift using 20F with no issues and clear yellow urine return
[2022-01-22 15:00] VITALS: TEMP 36.7; O2SAT 96
[2022-01-22 23:00] VITALS: TEMP 36.1; O2SAT 94
[2022-01-23] MEDS: BUSPIRONE 10 MG TABLET PO ×2 (07:43→15:11)
[2022-01-23] MEDS: ASPIRIN EC 325 MG TABLET PO (07:43)
[2022-01-23] MEDS: AMLODIPINE 10 MG TABLET PO (07:43)
[2022-01-23] MEDS: FUROSEMIDE 20 MG TABLET PO (07:44)
[2022-01-23] MEDS: lisinopriL 40 MG TABLET PO (07:44)
[2022-01-23] MEDS: FLUOXETINE HCL 20 MG CAPSULE PO (07:44)
[2022-01-23] MEDS: FLUOXETINE HCL 40 MG CAPSULE PO (07:44)
[2022-01-23] MEDS: METOPROLOL TARTRATE 50 MG TABLET PO ×2 (07:45→15:11)
[2022-01-23] MEDS: ROSUVASTATIN CALCIUM 20 MG TABLET PO (07:46)
[2022-01-23] MEDS: TRAMADOL HCL 50 MG TABLET PO ×3 (07:46→20:50)
[2022-01-23] MEDS: POTASSIUM CHLORIDE 20 MEQ TAB.ER.PRT 40 MEQ PO ×2 (07:46→15:11)
[2022-01-23] MEDS: PRESERVISION AREDS 1 EACH PO ×2 (07:46→15:11)
[2022-01-23] MEDS: INSULIN GLARGINE,HUM.REC.ANLOG 100 UNIT/ML INSULN.PEN 22 UNIT SUBCUT (07:54)
[2022-01-23 13:18] VITALS: TEMP 36.6; O2SAT 94
[2022-01-23 20:52] VITALS: TEMP 36.3; O2SAT 97
[2022-01-23 23:00] VITALS: TEMP 36.4; O2SAT 97
[2022-01-23 23:06] LABS: SARS PCR* Negative SARS-CoV-2 (Negative)
[2022-01-24 07:00] VITALS: TEMP 37; O2SAT 96
[2022-01-24] MEDS: FLUOXETINE HCL 20 MG CAPSULE PO (07:59)
[2022-01-24] MEDS: BUSPIRONE 10 MG TABLET PO ×2 (07:59→16:23)
[2022-01-24] MEDS: FUROSEMIDE 20 MG TABLET PO (07:59)
[2022-01-24] MEDS: INSULIN GLARGINE,HUM.REC.ANLOG 100 UNIT/ML INSULN.PEN 22 UNIT SUBCUT (07:59)
[2022-01-24] MEDS: METOPROLOL TARTRATE 50 MG TABLET PO ×2 (07:59→16:23)
[2022-01-24] MEDS: PRESERVISION AREDS 1 EACH PO ×2 (07:59→16:23)
[2022-01-24] MEDS: lisinopriL 40 MG TABLET PO (07:59)
[2022-01-24] MEDS: ASPIRIN EC 325 MG TABLET PO (07:59)
[2022-01-24] MEDS: FLUOXETINE HCL 40 MG CAPSULE PO (07:59)
[2022-01-24] MEDS: TRAMADOL HCL 50 MG TABLET PO ×3 (08:00→20:30)
[2022-01-24] MEDS: ROSUVASTATIN CALCIUM 20 MG TABLET PO (08:00)
[2022-01-24] MEDS: POTASSIUM CHLORIDE 20 MEQ TAB.ER.PRT 40 MEQ PO ×2 (08:00→16:24)
[2022-01-24] MEDS: AMLODIPINE 10 MG TABLET PO (08:05)
[2022-01-24 21:10] VITALS: TEMP 36.4; O2SAT 99
--- NOTE | 2022-01-24 21:13 | PC.NURSE ---
Weekly skin assessment: No new skin concerns with residents skin
[2022-01-24 23:00] VITALS: TEMP 36.4; O2SAT 97
[2022-01-25] MEDS: INSULIN GLARGINE,HUM.REC.ANLOG 100 UNIT/ML INSULN.PEN 22 UNIT SUBCUT (07:47)
[2022-01-25] MEDS: ASPIRIN EC 325 MG TABLET PO (07:47)
[2022-01-25] MEDS: AMLODIPINE 10 MG TABLET PO (07:47)
[2022-01-25] MEDS: PRESERVISION AREDS 1 EACH PO ×2 (08:05→15:10)
[2022-01-25] MEDS: BUSPIRONE 10 MG TABLET PO ×2 (08:05→15:10)
[2022-01-25] MEDS: FUROSEMIDE 20 MG TABLET PO (08:05)
[2022-01-25] MEDS: METOPROLOL TARTRATE 50 MG TABLET PO ×2 (08:05→15:10)
[2022-01-25] MEDS: FLUOXETINE HCL 20 MG CAPSULE PO (08:05)
[2022-01-25] MEDS: FLUOXETINE HCL 40 MG CAPSULE PO (08:05)
[2022-01-25] MEDS: lisinopriL 40 MG TABLET PO (08:05)
[2022-01-25] MEDS: POTASSIUM CHLORIDE 20 MEQ TAB.ER.PRT 40 MEQ PO ×2 (08:06→15:10)
[2022-01-25] MEDS: ROSUVASTATIN CALCIUM 20 MG TABLET PO (08:06)
[2022-01-25] MEDS: TRAMADOL HCL 50 MG TABLET PO ×3 (08:06→19:13)
[2022-01-25 16:00] VITALS: TEMP 36.3; O2SAT 96
--- NOTE | 2022-01-26 03:02 | PC.NURSE ---
Week #4---care plan problems #40+ reviewed. No changes made. Nothing added to temporary care plan. Occ. uses call light. Staff check on her regularly to see if she needs anything. No changes noted in hearing, vision, or orientation. No behavior problems at noc as long as staff does not try to check her pad. Continues on Buspar 10 mg bid and Fluoxetine 20 mg qd with no adverse effects noted.
--- NOTE | 2022-01-26 07:10 | PC.NURSE ---
Week #4: Care plan problems 40-119 and temporary care plan reviewed. No changes made. Nothing added to temporary care plan. No changes noted in communication, hearing, vision, & orientation. Is able to communicate needs and use the call light. Wears glasses. No hearing issues. Chronic health condition stable. Does not self administer medications. Behavior/Mood: No issues. Continues on Buspar 10mg BID, Fluoxetine 20mg daily with no adverse effects noted. Has no change in medications.
[2022-01-26] MEDS: AMLODIPINE 10 MG TABLET PO (07:24)
[2022-01-26] MEDS: FLUOXETINE HCL 20 MG CAPSULE PO (07:24)
[2022-01-26] MEDS: ASPIRIN EC 325 MG TABLET PO (07:24)
[2022-01-26] MEDS: BUSPIRONE 10 MG TABLET PO ×2 (07:24→15:09)
[2022-01-26] MEDS: FLUOXETINE HCL 40 MG CAPSULE PO (07:24)
[2022-01-26] MEDS: lisinopriL 40 MG TABLET PO (07:25)
[2022-01-26] MEDS: FUROSEMIDE 20 MG TABLET PO (07:25)
[2022-01-26] MEDS: METOPROLOL TARTRATE 50 MG TABLET PO ×2 (07:25→15:09)
[2022-01-26] MEDS: PRESERVISION AREDS 1 EACH PO ×2 (07:26→15:10)
[2022-01-26] MEDS: POTASSIUM CHLORIDE 20 MEQ TAB.ER.PRT 40 MEQ PO ×2 (07:27→15:10)
[2022-01-26] MEDS: TRAMADOL HCL 50 MG TABLET PO ×3 (07:27→20:15)
[2022-01-26] MEDS: ROSUVASTATIN CALCIUM 20 MG TABLET PO (07:27)
[2022-01-26] MEDS: INSULIN GLARGINE,HUM.REC.ANLOG 100 UNIT/ML INSULN.PEN 22 UNIT SUBCUT (07:44)
[2022-01-26 17:24] VITALS: BP 161/83; PULSE 63; RESP 17; TEMP 35.8; O2SAT 95
[2022-01-27] MEDS: INSULIN GLARGINE,HUM.REC.ANLOG 100 UNIT/ML INSULN.PEN 22 UNIT SUBCUT (08:11)
[2022-01-27] MEDS: AMLODIPINE 10 MG TABLET PO (08:11)
[2022-01-27] MEDS: ASPIRIN EC 325 MG TABLET PO (08:11)
[2022-01-27] MEDS: BUSPIRONE 10 MG TABLET PO ×2 (08:16→15:22)
[2022-01-27] MEDS: FLUOXETINE HCL 40 MG CAPSULE PO (08:16)
[2022-01-27] MEDS: FLUOXETINE HCL 20 MG CAPSULE PO (08:16)
[2022-01-27] MEDS: METOPROLOL TARTRATE 50 MG TABLET PO ×2 (08:17→15:22)
[2022-01-27] MEDS: ROSUVASTATIN CALCIUM 20 MG TABLET PO (08:17)
[2022-01-27] MEDS: POTASSIUM CHLORIDE 20 MEQ TAB.ER.PRT 40 MEQ PO ×2 (08:17→15:24)
[2022-01-27] MEDS: FUROSEMIDE 20 MG TABLET PO (08:17)
[2022-01-27] MEDS: PRESERVISION AREDS 1 EACH PO ×2 (08:17→15:22)
[2022-01-27] MEDS: TRAMADOL HCL 50 MG TABLET PO ×3 (08:17→21:03)
[2022-01-27] MEDS: lisinopriL 40 MG TABLET PO (08:17)
[2022-01-27 16:59] VITALS: TEMP 36.6; O2SAT 96
[2022-01-28] MEDS: lisinopriL 40 MG TABLET PO (08:08)
[2022-01-28] MEDS: ASPIRIN EC 325 MG TABLET PO (08:08)
[2022-01-28] MEDS: ROSUVASTATIN CALCIUM 20 MG TABLET PO (08:08)
[2022-01-28] MEDS: INSULIN GLARGINE,HUM.REC.ANLOG 100 UNIT/ML INSULN.PEN 22 UNIT SUBCUT (08:08)
[2022-01-28] MEDS: PRESERVISION AREDS 1 EACH PO ×2 (08:08→15:21)
[2022-01-28] MEDS: BUSPIRONE 10 MG TABLET PO ×2 (08:08→15:21)
[2022-01-28] MEDS: FLUOXETINE HCL 20 MG CAPSULE PO (08:08)
[2022-01-28] MEDS: FLUOXETINE HCL 40 MG CAPSULE PO (08:08)
[2022-01-28] MEDS: FUROSEMIDE 20 MG TABLET PO (08:08)
[2022-01-28] MEDS: TRAMADOL HCL 50 MG TABLET PO ×3 (08:08→20:46)
[2022-01-28] MEDS: METOPROLOL TARTRATE 50 MG TABLET PO ×2 (08:08→15:21)
[2022-01-28] MEDS: POTASSIUM CHLORIDE 20 MEQ TAB.ER.PRT 40 MEQ PO ×2 (08:08→15:21)
[2022-01-28] MEDS: AMLODIPINE 10 MG TABLET PO (08:08)
[2022-01-28 21:14] VITALS: TEMP 36.4; O2SAT 97
[2022-01-29] MEDS: AMLODIPINE 10 MG TABLET PO (08:09)
[2022-01-29] MEDS: INSULIN GLARGINE,HUM.REC.ANLOG 100 UNIT/ML INSULN.PEN 22 UNIT SUBCUT (08:09)
[2022-01-29] MEDS: FLUOXETINE HCL 40 MG CAPSULE PO (08:09)
[2022-01-29] MEDS: BUSPIRONE 10 MG TABLET PO ×2 (08:09→15:34)
[2022-01-29] MEDS: ASPIRIN EC 325 MG TABLET PO (08:09)
[2022-01-29] MEDS: FUROSEMIDE 20 MG TABLET PO (08:09)
[2022-01-29] MEDS: FLUOXETINE HCL 20 MG CAPSULE PO (08:09)
[2022-01-29] MEDS: POTASSIUM CHLORIDE 20 MEQ TAB.ER.PRT 40 MEQ PO ×2 (08:10→15:35)
[2022-01-29] MEDS: METOPROLOL TARTRATE 50 MG TABLET PO ×2 (08:10→15:34)
[2022-01-29] MEDS: PRESERVISION AREDS 1 EACH PO ×2 (08:10→15:35)
[2022-01-29] MEDS: ROSUVASTATIN CALCIUM 20 MG TABLET PO (08:10)
[2022-01-29] MEDS: TRAMADOL HCL 50 MG TABLET PO ×3 (08:10→20:53)
[2022-01-29] MEDS: lisinopriL 40 MG TABLET PO (08:10)
[2022-01-29] MEDS: LOPERAMIDE HCL 2 MG CAPSULE PO (10:50)
[2022-01-29 21:13] VITALS: TEMP 36.2; O2SAT 99
[2022-01-30] MEDS: FLUOXETINE HCL 20 MG CAPSULE PO (07:24)
[2022-01-30] MEDS: FLUOXETINE HCL 40 MG CAPSULE PO (07:24)
[2022-01-30] MEDS: ASPIRIN EC 325 MG TABLET PO (07:24)
[2022-01-30] MEDS: BUSPIRONE 10 MG TABLET PO ×2 (07:24→15:23)
[2022-01-30] MEDS: FUROSEMIDE 20 MG TABLET PO (07:24)
[2022-01-30] MEDS: AMLODIPINE 10 MG TABLET PO (07:24)
[2022-01-30] MEDS: METOPROLOL TARTRATE 50 MG TABLET PO ×2 (07:25→15:23)
[2022-01-30] MEDS: lisinopriL 40 MG TABLET PO (07:25)
[2022-01-30] MEDS: PRESERVISION AREDS 1 EACH PO ×2 (07:25→15:23)
[2022-01-30] MEDS: POTASSIUM CHLORIDE 20 MEQ TAB.ER.PRT 40 MEQ PO ×2 (07:26→15:23)
[2022-01-30] MEDS: ROSUVASTATIN CALCIUM 20 MG TABLET PO (07:26)
[2022-01-30] MEDS: TRAMADOL HCL 50 MG TABLET PO ×3 (07:26→20:53)
[2022-01-30] MEDS: INSULIN GLARGINE,HUM.REC.ANLOG 100 UNIT/ML INSULN.PEN 22 UNIT SUBCUT (07:35)
[2022-01-30 21:30] VITALS: TEMP 36.1; O2SAT 98
[2022-01-31] MEDS: AMLODIPINE 10 MG TABLET PO (07:56)
[2022-01-31] MEDS: ASPIRIN EC 325 MG TABLET PO (07:56)
[2022-01-31] MEDS: FLUOXETINE HCL 40 MG CAPSULE PO (07:57)
[2022-01-31] MEDS: METOPROLOL TARTRATE 50 MG TABLET PO ×2 (07:57→15:22)
[2022-01-31] MEDS: TRAMADOL HCL 50 MG TABLET PO ×3 (07:57→20:13)
[2022-01-31] MEDS: FUROSEMIDE 20 MG TABLET PO (07:57)
[2022-01-31] MEDS: INSULIN GLARGINE,HUM.REC.ANLOG 100 UNIT/ML INSULN.PEN 22 UNIT SUBCUT (07:57)
[2022-01-31] MEDS: FLUOXETINE HCL 20 MG CAPSULE PO (07:57)
[2022-01-31] MEDS: ROSUVASTATIN CALCIUM 20 MG TABLET PO (07:57)
[2022-01-31] MEDS: lisinopriL 40 MG TABLET PO (07:57)
[2022-01-31] MEDS: PRESERVISION AREDS 1 EACH PO ×2 (07:57→15:22)
[2022-01-31] MEDS: BUSPIRONE 10 MG TABLET PO ×2 (07:57→15:21)
[2022-01-31] MEDS: POTASSIUM CHLORIDE 20 MEQ TAB.ER.PRT 40 MEQ PO ×2 (07:57→15:22)
[2022-01-31 16:00] VITALS: TEMP 36.6; O2SAT 98
[2022-02-01] MEDS: FLUOXETINE HCL 20 MG CAPSULE PO (08:30)
[2022-02-01] MEDS: METOPROLOL TARTRATE 50 MG TABLET PO ×2 (08:30→15:15)
[2022-02-01] MEDS: INSULIN GLARGINE,HUM.REC.ANLOG 100 UNIT/ML INSULN.PEN 22 UNIT SUBCUT (08:30)
[2022-02-01] MEDS: BUSPIRONE 10 MG TABLET PO ×2 (08:30→15:15)
[2022-02-01] MEDS: AMLODIPINE 10 MG TABLET PO (08:30)
[2022-02-01] MEDS: FUROSEMIDE 20 MG TABLET PO (08:30)
[2022-02-01] MEDS: FLUOXETINE HCL 40 MG CAPSULE PO (08:30)
[2022-02-01] MEDS: ASPIRIN EC 325 MG TABLET PO (08:30)
[2022-02-01] MEDS: lisinopriL 40 MG TABLET PO (08:30)
[2022-02-01] MEDS: PRESERVISION AREDS 1 EACH PO ×2 (08:31→15:15)
[2022-02-01] MEDS: POTASSIUM CHLORIDE 20 MEQ TAB.ER.PRT 40 MEQ PO ×2 (08:31→15:16)
[2022-02-01] MEDS: TRAMADOL HCL 50 MG TABLET PO ×3 (08:31→20:28)
[2022-02-01] MEDS: ROSUVASTATIN CALCIUM 20 MG TABLET PO (08:31)
--- NOTE | 2022-02-01 14:05 | PC.SPIRITC ---
Non Morse Intercept Technician provided visit for support, connection, and prayer.
[2022-02-01 21:13] VITALS: TEMP 36.4; O2SAT 96
--- NOTE | 2022-02-01 22:18 | PC.NURSE ---
Weight: Resident was reweighed and is down 4lbs.
--- NOTE | 2022-02-02 04:55 | PC.NURSE ---
Weekly #1 Plan of care problems 1-19 reviewed with no changes made, no additions. VS are stable and within normal limits. Res receives scheduled Ultram for pain, 50mg TID and prn Q 6 hours. Res remains in bed during special skills officer, is not groomed or dressed on this shift. Res does not eat on this shift.
--- NOTE | 2022-02-02 06:56 | PC.NURSE ---
Week #1: Care plan problems 1-19 and temporary care plan reviewed. No changes made. Nothing added to temporary care plan. Resident needs one assist with dressing, grooming, & bathing. Encourage participation as able. Is able to do oral cares after set up. And independent with feeding after set set up. Is on regular diet per request. No problems with chewing or swallowing noted. Pain: Has chronic pain. No complain of pain this past month. Pain is controlled with Lyrica 300mg BID, Ultram 50mg TID & Q6H PRN & has used occasionally. She can communicate need for pain.
[2022-02-02] MEDS: INSULIN GLARGINE,HUM.REC.ANLOG 100 UNIT/ML INSULN.PEN 22 UNIT SUBCUT (07:17)
[2022-02-02] MEDS: ASPIRIN EC 325 MG TABLET PO (07:17)
[2022-02-02] MEDS: AMLODIPINE 10 MG TABLET PO (07:17)
[2022-02-02] MEDS: PRESERVISION AREDS 1 EACH PO ×2 (07:18→15:34)
[2022-02-02] MEDS: METOPROLOL TARTRATE 50 MG TABLET PO ×2 (07:18→15:34)
[2022-02-02] MEDS: BUSPIRONE 10 MG TABLET PO ×2 (07:18→15:34)
[2022-02-02] MEDS: POTASSIUM CHLORIDE 20 MEQ TAB.ER.PRT 40 MEQ PO ×2 (07:18→15:34)
[2022-02-02] MEDS: lisinopriL 40 MG TABLET PO (07:18)
[2022-02-02] MEDS: ROSUVASTATIN CALCIUM 20 MG TABLET PO (07:18)
[2022-02-02] MEDS: FLUOXETINE HCL 20 MG CAPSULE PO (07:18)
[2022-02-02] MEDS: FUROSEMIDE 20 MG TABLET PO (07:18)
[2022-02-02] MEDS: TRAMADOL HCL 50 MG TABLET PO ×3 (07:18→20:49)
[2022-02-02] MEDS: FLUOXETINE HCL 40 MG CAPSULE PO (07:18)
[2022-02-02 10:55] VITALS: BP 144/78; PULSE 65; RESP 16; TEMP 36.4; O2SAT 96
[2022-02-02 21:43] VITALS: TEMP 36.4; O2SAT 95
[2022-02-03] MEDS: ASPIRIN EC 325 MG TABLET PO (07:32)
[2022-02-03] MEDS: BUSPIRONE 10 MG TABLET PO ×2 (07:32→15:05)
[2022-02-03] MEDS: AMLODIPINE 10 MG TABLET PO (07:32)
[2022-02-03] MEDS: FLUOXETINE HCL 40 MG CAPSULE PO (07:32)
[2022-02-03] MEDS: FLUOXETINE HCL 20 MG CAPSULE PO (07:35)
[2022-02-03] MEDS: POTASSIUM CHLORIDE 20 MEQ TAB.ER.PRT 40 MEQ PO ×2 (07:35→15:05)
[2022-02-03] MEDS: ROSUVASTATIN CALCIUM 20 MG TABLET PO (07:35)
[2022-02-03] MEDS: METOPROLOL TARTRATE 50 MG TABLET PO ×2 (07:35→15:05)
[2022-02-03] MEDS: PRESERVISION AREDS 1 EACH PO ×2 (07:35→15:07)
[2022-02-03] MEDS: FUROSEMIDE 20 MG TABLET PO (07:35)
[2022-02-03] MEDS: TRAMADOL HCL 50 MG TABLET PO ×3 (07:35→20:44)
[2022-02-03] MEDS: lisinopriL 40 MG TABLET PO (07:35)
[2022-02-03] MEDS: INSULIN GLARGINE,HUM.REC.ANLOG 100 UNIT/ML INSULN.PEN 22 UNIT SUBCUT (07:53)
[2022-02-03 16:00] VITALS: TEMP 35.7; O2SAT 95
[2022-02-04] MEDS: ASPIRIN EC 325 MG TABLET PO (07:20)
[2022-02-04] MEDS: AMLODIPINE 10 MG TABLET PO (07:20)
[2022-02-04] MEDS: FLUOXETINE HCL 20 MG CAPSULE PO (07:21)
[2022-02-04] MEDS: FUROSEMIDE 20 MG TABLET PO (07:21)
[2022-02-04] MEDS: lisinopriL 40 MG TABLET PO (07:21)
[2022-02-04] MEDS: FLUOXETINE HCL 40 MG CAPSULE PO (07:21)
[2022-02-04] MEDS: BUSPIRONE 10 MG TABLET PO ×2 (07:21→15:45)
[2022-02-04] MEDS: METOPROLOL TARTRATE 50 MG TABLET PO ×2 (07:22→15:45)
[2022-02-04] MEDS: PRESERVISION AREDS 1 EACH PO ×2 (07:22→15:47)
[2022-02-04] MEDS: POTASSIUM CHLORIDE 20 MEQ TAB.ER.PRT 40 MEQ PO ×2 (07:23→15:47)
[2022-02-04] MEDS: ROSUVASTATIN CALCIUM 20 MG TABLET PO (07:23)
[2022-02-04] MEDS: TRAMADOL HCL 50 MG TABLET PO ×3 (07:23→20:15)
[2022-02-04] MEDS: INSULIN GLARGINE,HUM.REC.ANLOG 100 UNIT/ML INSULN.PEN 22 UNIT SUBCUT (07:40)
[2022-02-04 16:00] VITALS: TEMP 36.1; O2SAT 96
[2022-02-05] MEDS: ASPIRIN EC 325 MG TABLET PO (07:35)
[2022-02-05] MEDS: AMLODIPINE 10 MG TABLET PO (07:35)
[2022-02-05] MEDS: BUSPIRONE 10 MG TABLET PO ×2 (07:36→15:12)
[2022-02-05] MEDS: PRESERVISION AREDS 1 EACH PO ×2 (07:36→15:13)
[2022-02-05] MEDS: FLUOXETINE HCL 40 MG CAPSULE PO (07:36)
[2022-02-05] MEDS: FLUOXETINE HCL 20 MG CAPSULE PO (07:36)
[2022-02-05] MEDS: ROSUVASTATIN CALCIUM 20 MG TABLET PO (07:36)
[2022-02-05] MEDS: FUROSEMIDE 20 MG TABLET PO (07:36)
[2022-02-05] MEDS: lisinopriL 40 MG TABLET PO (07:36)
[2022-02-05] MEDS: POTASSIUM CHLORIDE 20 MEQ TAB.ER.PRT 40 MEQ PO ×2 (07:36→15:13)
[2022-02-05] MEDS: METOPROLOL TARTRATE 50 MG TABLET PO ×2 (07:36→15:12)
[2022-02-05] MEDS: TRAMADOL HCL 50 MG TABLET PO ×3 (07:36→20:23)
[2022-02-05] MEDS: INSULIN GLARGINE,HUM.REC.ANLOG 100 UNIT/ML INSULN.PEN 22 UNIT SUBCUT (07:45)
[2022-02-05 16:00] VITALS: TEMP 35.7; O2SAT 96
[2022-02-06] MEDS: AMLODIPINE 10 MG TABLET PO (07:44)
[2022-02-06] MEDS: BUSPIRONE 10 MG TABLET PO ×2 (07:44→15:19)
[2022-02-06] MEDS: ASPIRIN EC 325 MG TABLET PO (07:44)
[2022-02-06] MEDS: FLUOXETINE HCL 20 MG CAPSULE PO (07:44)
[2022-02-06] MEDS: FLUOXETINE HCL 40 MG CAPSULE PO (07:44)
[2022-02-06] MEDS: lisinopriL 40 MG TABLET PO (07:45)
[2022-02-06] MEDS: ROSUVASTATIN CALCIUM 20 MG TABLET PO (07:45)
[2022-02-06] MEDS: METOPROLOL TARTRATE 50 MG TABLET PO ×2 (07:45→15:19)
[2022-02-06] MEDS: PRESERVISION AREDS 1 EACH PO ×2 (07:45→15:19)
[2022-02-06] MEDS: FUROSEMIDE 20 MG TABLET PO (07:45)
[2022-02-06] MEDS: POTASSIUM CHLORIDE 20 MEQ TAB.ER.PRT 40 MEQ PO ×2 (07:45→15:19)
[2022-02-06] MEDS: TRAMADOL HCL 50 MG TABLET PO ×3 (07:46→20:08)
[2022-02-06] MEDS: INSULIN GLARGINE,HUM.REC.ANLOG 100 UNIT/ML INSULN.PEN 22 UNIT SUBCUT (07:53)
--- NOTE | 2022-02-06 09:00 | PC.NURSE ---
COVID TESTING: Resident had a high-risk exposure to a COVID+ resident. Residents daughter verbally consented to testing. Will update family and resident if positive.
--- NOTE | 2022-02-06 13:41 | PC.NURSE ---
Status: Was noted that residents edward-area was very red and smelled like yeast. Note left for COMBAT CONTROL MANAGER for nystatin powder
[2022-02-06 15:43] LABS: SARS PCR* Negative SARS-CoV-2 (Negative)
[2022-02-06 21:21] VITALS: TEMP 36.4; O2SAT 95
[2022-02-06 23:00] VITALS: TEMP 36.2; O2SAT 97
[2022-02-07 07:00] VITALS: TEMP 36.9; O2SAT 95
[2022-02-07] MEDS: FLUOXETINE HCL 40 MG CAPSULE PO (08:04)
[2022-02-07] MEDS: AMLODIPINE 10 MG TABLET PO (08:04)
[2022-02-07] MEDS: INSULIN GLARGINE,HUM.REC.ANLOG 100 UNIT/ML INSULN.PEN 22 UNIT SUBCUT (08:04)
[2022-02-07] MEDS: BUSPIRONE 10 MG TABLET PO ×2 (08:04→16:54)
[2022-02-07] MEDS: ASPIRIN EC 325 MG TABLET PO (08:04)
[2022-02-07] MEDS: METOPROLOL TARTRATE 50 MG TABLET PO ×2 (08:05→16:54)
[2022-02-07] MEDS: FUROSEMIDE 20 MG TABLET PO (08:05)
[2022-02-07] MEDS: ROSUVASTATIN CALCIUM 20 MG TABLET PO (08:05)
[2022-02-07] MEDS: FLUOXETINE HCL 20 MG CAPSULE PO (08:05)
[2022-02-07] MEDS: TRAMADOL HCL 50 MG TABLET PO ×3 (08:05→19:49)
[2022-02-07] MEDS: PRESERVISION AREDS 1 EACH PO ×2 (08:05→16:54)
[2022-02-07] MEDS: lisinopriL 40 MG TABLET PO (08:05)
[2022-02-07] MEDS: POTASSIUM CHLORIDE 20 MEQ TAB.ER.PRT 40 MEQ PO ×2 (08:05→16:54)
--- NOTE | 2022-02-07 12:21 | PC.SPIRITC ---
Fingerprint Technician provided visit for support and connection.
--- NOTE | 2022-02-07 12:59 | PC.NURSE ---
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
[2022-02-07 15:00] VITALS: TEMP 36.7; O2SAT 96
[2022-02-07] MEDS: NYSTATIN POWDER 1 APPLIC TOPICAL (16:54)
[2022-02-07 23:00] VITALS: TEMP 36.4; O2SAT 95
[2022-02-08] MEDS: FUROSEMIDE 20 MG TABLET PO (08:12)
[2022-02-08] MEDS: ASPIRIN EC 325 MG TABLET PO (08:12)
[2022-02-08] MEDS: lisinopriL 40 MG TABLET PO (08:12)
[2022-02-08] MEDS: BUSPIRONE 10 MG TABLET PO ×2 (08:12→15:07)
[2022-02-08] MEDS: FLUOXETINE HCL 20 MG CAPSULE PO (08:12)
[2022-02-08] MEDS: HYDROCORTISONE 1 % CREAM 1 APPLIC TOPICAL ×2 (08:12→15:07)
[2022-02-08] MEDS: FLUOXETINE HCL 40 MG CAPSULE PO (08:12)
[2022-02-08] MEDS: AMLODIPINE 10 MG TABLET PO (08:12)
[2022-02-08] MEDS: INSULIN GLARGINE,HUM.REC.ANLOG 100 UNIT/ML INSULN.PEN 22 UNIT SUBCUT (08:12)
[2022-02-08] MEDS: METOPROLOL TARTRATE 50 MG TABLET PO ×2 (08:13→15:07)
[2022-02-08] MEDS: ROSUVASTATIN CALCIUM 20 MG TABLET PO (08:13)
[2022-02-08] MEDS: TRAMADOL HCL 50 MG TABLET PO ×3 (08:13→20:50)
[2022-02-08] MEDS: POTASSIUM CHLORIDE 20 MEQ TAB.ER.PRT 40 MEQ PO ×2 (08:13→15:08)
[2022-02-08] MEDS: NYSTATIN POWDER 1 APPLIC TOPICAL ×2 (08:13→15:08)
[2022-02-08] MEDS: PRESERVISION AREDS 1 EACH PO ×2 (08:13→15:08)
[2022-02-08 09:37] LABS: SARS PCR* Negative SARS-CoV-2 (Negative)
[2022-02-08 10:48] VITALS: TEMP 37.1; O2SAT 97
[2022-02-08 11:01] LABS: Chloride* 100 mmol/L (96-114); Potassium* 3.5 mmol/L (3.6-5.1); Sodium* 138 mmol/L (135-149)
[2022-02-08 11:04] LABS: Blood Urea Nitrogen* 18 mg/dL (7-30); Carbon Dioxide* 23 mmol/L (20-32); Creatinine* 0.7 mg/dL (0.5-1.5); Est. Creatinine Clearance* 35.26; Estimated Glomerular Filt Rate 86 ml/min; Glucose* 284 mg/dL (60-115)
[2022-02-08 16:45] VITALS: TEMP 36; O2SAT 96
[2022-02-08 23:00] VITALS: TEMP 36.1; O2SAT 95
--- NOTE | 2022-02-09 02:27 | PC.NURSE ---
Week #2---care plan problems #20-29 reviewed. No changes made. Nothing added to temporary care plan. Rarely out of bed this shift. Very occ. will request to go to the BR. Is transferred with Medistand and assist of 1. In bed, refuses to lie on either side. Does have her own foam mattress topper on the bed. Pillow under lower legs which she will throw on the floor at times. Top siderails up. Falls----no falls this past month. Remains a high fall risk according to assessment done on 12/01/21.
[2022-02-09] MEDS: AMLODIPINE 10 MG TABLET PO (08:27)
[2022-02-09] MEDS: ASPIRIN EC 325 MG TABLET PO (08:27)
[2022-02-09] MEDS: FLUOXETINE HCL 40 MG CAPSULE PO (08:28)
[2022-02-09] MEDS: FLUOXETINE HCL 20 MG CAPSULE PO (08:28)
[2022-02-09] MEDS: lisinopriL 40 MG TABLET PO (08:28)
[2022-02-09] MEDS: NYSTATIN POWDER 1 APPLIC TOPICAL ×2 (08:28→15:43)
[2022-02-09] MEDS: POTASSIUM CHLORIDE 20 MEQ TAB.ER.PRT 40 MEQ PO ×2 (08:28→15:43)
[2022-02-09] MEDS: PRESERVISION AREDS 1 EACH PO ×2 (08:28→15:43)
[2022-02-09] MEDS: ROSUVASTATIN CALCIUM 20 MG TABLET PO (08:28)
[2022-02-09] MEDS: TRAMADOL HCL 50 MG TABLET PO ×3 (08:28→20:23)
[2022-02-09] MEDS: HYDROCORTISONE 1 % CREAM 1 APPLIC TOPICAL ×2 (08:28→15:42)
[2022-02-09] MEDS: METOPROLOL TARTRATE 50 MG TABLET PO ×2 (08:28→15:42)
[2022-02-09] MEDS: BUSPIRONE 10 MG TABLET PO ×2 (08:28→15:39)
[2022-02-09] MEDS: FUROSEMIDE 20 MG TABLET PO (08:28)
[2022-02-09] MEDS: INSULIN GLARGINE,HUM.REC.ANLOG 100 UNIT/ML INSULN.PEN 22 UNIT SUBCUT (08:43)
[2022-02-09 15:00] VITALS: TEMP 35.9; O2SAT 96
[2022-02-09 21:36] VITALS: BP 132/80; PULSE 60; RESP 18; TEMP 36.1; O2SAT 95
[2022-02-09 23:00] VITALS: TEMP 36.3; O2SAT 95
[2022-02-10 07:00] VITALS: TEMP 36.9; O2SAT 97
[2022-02-10] MEDS: ASPIRIN EC 325 MG TABLET PO (07:21)
[2022-02-10] MEDS: AMLODIPINE 10 MG TABLET PO (07:21)
[2022-02-10] MEDS: INSULIN GLARGINE,HUM.REC.ANLOG 100 UNIT/ML INSULN.PEN 22 UNIT SUBCUT (07:21)
[2022-02-10] MEDS: TRAMADOL HCL 50 MG TABLET PO ×3 (07:22→21:00)
[2022-02-10] MEDS: PRESERVISION AREDS 1 EACH PO ×2 (07:22→15:34)
[2022-02-10] MEDS: FLUOXETINE HCL 40 MG CAPSULE PO (07:22)
[2022-02-10] MEDS: METOPROLOL TARTRATE 50 MG TABLET PO ×2 (07:22→15:34)
[2022-02-10] MEDS: NYSTATIN POWDER 1 APPLIC TOPICAL ×2 (07:22→21:00)
[2022-02-10] MEDS: lisinopriL 40 MG TABLET PO (07:22)
[2022-02-10] MEDS: FUROSEMIDE 20 MG TABLET PO (07:22)
[2022-02-10] MEDS: HYDROCORTISONE 1 % CREAM 1 APPLIC TOPICAL ×2 (07:22→15:34)
[2022-02-10] MEDS: FLUOXETINE HCL 20 MG CAPSULE PO (07:22)
[2022-02-10] MEDS: ROSUVASTATIN CALCIUM 20 MG TABLET PO (07:22)
[2022-02-10] MEDS: POTASSIUM CHLORIDE 20 MEQ TAB.ER.PRT 40 MEQ PO ×2 (07:22→15:35)
[2022-02-10] MEDS: BUSPIRONE 10 MG TABLET PO ×2 (07:22→15:34)
--- NOTE | 2022-02-10 11:11 | PC.NURSE ---
Recert Visit: Resident seen by Dr. Retana. Orders reviewed and renewed of 75 days without changes.
[2022-02-10 21:32] VITALS: TEMP 36.4; O2SAT 96
[2022-02-11 01:13] VITALS: TEMP 36.2; O2SAT 95
[2022-02-11 07:00] VITALS: TEMP 36.9; O2SAT 96
[2022-02-11] MEDS: BUSPIRONE 10 MG TABLET PO ×2 (07:53→15:37)
[2022-02-11] MEDS: ASPIRIN EC 325 MG TABLET PO (07:53)
[2022-02-11] MEDS: INSULIN GLARGINE,HUM.REC.ANLOG 100 UNIT/ML INSULN.PEN 22 UNIT SUBCUT (07:53)
[2022-02-11] MEDS: FLUOXETINE HCL 20 MG CAPSULE PO (07:53)
[2022-02-11] MEDS: AMLODIPINE 10 MG TABLET PO (07:53)
[2022-02-11] MEDS: FLUOXETINE HCL 40 MG CAPSULE PO (07:53)
[2022-02-11] MEDS: FUROSEMIDE 20 MG TABLET PO (07:54)
[2022-02-11] MEDS: METOPROLOL TARTRATE 50 MG TABLET PO ×2 (07:54→15:37)
[2022-02-11] MEDS: HYDROCORTISONE 1 % CREAM 1 APPLIC TOPICAL ×2 (07:54→15:37)
[2022-02-11] MEDS: lisinopriL 40 MG TABLET PO (07:54)
[2022-02-11] MEDS: PRESERVISION AREDS 1 EACH PO ×2 (07:54→15:37)
[2022-02-11] MEDS: TRAMADOL HCL 50 MG TABLET PO ×3 (07:55→20:37)
[2022-02-11] MEDS: ROSUVASTATIN CALCIUM 20 MG TABLET PO (07:55)
[2022-02-11] MEDS: POTASSIUM CHLORIDE 20 MEQ TAB.ER.PRT 40 MEQ PO ×2 (07:55→15:38)
[2022-02-11] MEDS: NYSTATIN POWDER 1 APPLIC TOPICAL ×2 (07:55→20:37)
[2022-02-11 20:57] VITALS: TEMP 36.3; O2SAT 99
[2022-02-11 23:00] VITALS: TEMP 36.2; O2SAT 96
[2022-02-12 07:00] VITALS: TEMP 37.1; O2SAT 96
[2022-02-12] MEDS: AMLODIPINE 10 MG TABLET PO (07:14)
[2022-02-12] MEDS: FUROSEMIDE 20 MG TABLET PO (07:15)
[2022-02-12] MEDS: BUSPIRONE 10 MG TABLET PO ×2 (07:15→15:27)
[2022-02-12] MEDS: ASPIRIN EC 325 MG TABLET PO (07:15)
[2022-02-12] MEDS: FLUOXETINE HCL 40 MG CAPSULE PO (07:15)
[2022-02-12] MEDS: ROSUVASTATIN CALCIUM 20 MG TABLET PO (07:15)
[2022-02-12] MEDS: lisinopriL 40 MG TABLET PO (07:15)
[2022-02-12] MEDS: NYSTATIN POWDER 1 APPLIC TOPICAL ×2 (07:15→20:22)
[2022-02-12] MEDS: FLUOXETINE HCL 20 MG CAPSULE PO (07:15)
[2022-02-12] MEDS: METOPROLOL TARTRATE 50 MG TABLET PO ×2 (07:15→15:27)
[2022-02-12] MEDS: POTASSIUM CHLORIDE 20 MEQ TAB.ER.PRT 40 MEQ PO ×2 (07:15→15:27)
[2022-02-12] MEDS: PRESERVISION AREDS 1 EACH PO ×2 (07:15→15:27)
[2022-02-12] MEDS: HYDROCORTISONE 1 % CREAM 1 APPLIC TOPICAL ×2 (07:15→15:27)
[2022-02-12] MEDS: TRAMADOL HCL 50 MG TABLET PO ×3 (07:16→20:22)
[2022-02-12] MEDS: INSULIN GLARGINE,HUM.REC.ANLOG 100 UNIT/ML INSULN.PEN 22 UNIT SUBCUT (08:10)
[2022-02-12] MEDS: MAG HYDROX/ALUMINUM HYD/SIMETH 30 ML ORAL.SUSP PO (17:50)
[2022-02-12 21:14] VITALS: TEMP 36.1; O2SAT 94
[2022-02-12 23:00] VITALS: TEMP 36.2; O2SAT 96
[2022-02-13] MEDS: AMLODIPINE 10 MG TABLET PO (07:27)
[2022-02-13] MEDS: FLUOXETINE HCL 40 MG CAPSULE PO (07:28)
[2022-02-13] MEDS: FLUOXETINE HCL 20 MG CAPSULE PO (07:28)
[2022-02-13] MEDS: BUSPIRONE 10 MG TABLET PO ×2 (07:28→15:43)
[2022-02-13] MEDS: ASPIRIN EC 325 MG TABLET PO (07:28)
[2022-02-13] MEDS: lisinopriL 40 MG TABLET PO (07:29)
[2022-02-13] MEDS: METOPROLOL TARTRATE 50 MG TABLET PO ×2 (07:29→15:44)
[2022-02-13] MEDS: FUROSEMIDE 20 MG TABLET PO (07:29)
[2022-02-13] MEDS: PRESERVISION AREDS 1 EACH PO ×2 (07:30→15:44)
[2022-02-13] MEDS: POTASSIUM CHLORIDE 20 MEQ TAB.ER.PRT 40 MEQ PO ×2 (07:30→15:44)
[2022-02-13] MEDS: TRAMADOL HCL 50 MG TABLET PO ×3 (07:41→20:37)
[2022-02-13] MEDS: ROSUVASTATIN CALCIUM 20 MG TABLET PO (07:41)
[2022-02-13] MEDS: HYDROCORTISONE 1 % CREAM 1 APPLIC TOPICAL ×2 (07:41→15:44)
[2022-02-13] MEDS: NYSTATIN POWDER 1 APPLIC TOPICAL ×2 (07:41→20:37)
[2022-02-13] MEDS: INSULIN GLARGINE,HUM.REC.ANLOG 100 UNIT/ML INSULN.PEN 22 UNIT SUBCUT (07:58)
[2022-02-13 10:38] VITALS: TEMP 36.6; O2SAT 97
--- NOTE | 2022-02-13 11:02 | PC.NURSE ---
COVID TESTING: Residents daughter provided verbal consent for outbreak COVID testing. Resident is currently asymptomatic. Resident/family will be notified only if resident is positive.
[2022-02-13 14:51] LABS: SARS PCR* Negative SARS-CoV-2 (Negative)
[2022-02-13 15:00] VITALS: TEMP 36.3; O2SAT 96
[2022-02-13 23:00] VITALS: TEMP 36.3; O2SAT 97
[2022-02-14] MEDS: BUSPIRONE 10 MG TABLET PO ×2 (08:19→15:33)
[2022-02-14] MEDS: ASPIRIN EC 325 MG TABLET PO (08:19)
[2022-02-14] MEDS: FLUOXETINE HCL 40 MG CAPSULE PO (08:19)
[2022-02-14] MEDS: AMLODIPINE 10 MG TABLET PO (08:19)
[2022-02-14] MEDS: HYDROCORTISONE 1 % CREAM 1 APPLIC TOPICAL ×2 (08:20→15:33)
[2022-02-14] MEDS: PRESERVISION AREDS 1 EACH PO ×2 (08:20→15:34)
[2022-02-14] MEDS: FLUOXETINE HCL 20 MG CAPSULE PO (08:20)
[2022-02-14] MEDS: lisinopriL 40 MG TABLET PO (08:20)
[2022-02-14] MEDS: METOPROLOL TARTRATE 50 MG TABLET PO ×2 (08:20→15:33)
[2022-02-14] MEDS: FUROSEMIDE 20 MG TABLET PO (08:20)
[2022-02-14] MEDS: NYSTATIN POWDER 1 APPLIC TOPICAL ×2 (08:21→20:00)
[2022-02-14] MEDS: POTASSIUM CHLORIDE 20 MEQ TAB.ER.PRT 40 MEQ PO ×2 (08:21→15:34)
[2022-02-14] MEDS: ROSUVASTATIN CALCIUM 20 MG TABLET PO (08:22)
[2022-02-14] MEDS: INSULIN GLARGINE,HUM.REC.ANLOG 100 UNIT/ML INSULN.PEN 22 UNIT SUBCUT (08:24)
[2022-02-14] MEDS: TRAMADOL HCL 50 MG TABLET PO ×3 (08:24→20:00)
[2022-02-14 09:31] VITALS: TEMP 36.4; O2SAT 96
--- NOTE | 2022-02-14 12:38 | PC.SPIRITC ---
Co Founder And Cto provided note of encouragement for connection and support.
[2022-02-14 21:33] VITALS: TEMP 36.4; O2SAT 96
[2022-02-14 21:35] VITALS: BMI 33.6
[2022-02-14 23:00] VITALS: TEMP 36.4; O2SAT 96
[2022-02-15 07:00] VITALS: TEMP 36.9; O2SAT 96
[2022-02-15] MEDS: AMLODIPINE 10 MG TABLET PO (07:26)
[2022-02-15] MEDS: INSULIN GLARGINE,HUM.REC.ANLOG 100 UNIT/ML INSULN.PEN 22 UNIT SUBCUT (07:26)
[2022-02-15] MEDS: ASPIRIN EC 325 MG TABLET PO (07:26)
[2022-02-15] MEDS: FLUOXETINE HCL 40 MG CAPSULE PO (07:27)
[2022-02-15] MEDS: ROSUVASTATIN CALCIUM 20 MG TABLET PO (07:27)
[2022-02-15] MEDS: TRAMADOL HCL 50 MG TABLET PO ×3 (07:27→20:12)
[2022-02-15] MEDS: FLUOXETINE HCL 20 MG CAPSULE PO (07:27)
[2022-02-15] MEDS: POTASSIUM CHLORIDE 20 MEQ TAB.ER.PRT 40 MEQ PO ×2 (07:27→15:21)
[2022-02-15] MEDS: HYDROCORTISONE 1 % CREAM 1 APPLIC TOPICAL ×2 (07:27→15:21)
[2022-02-15] MEDS: BUSPIRONE 10 MG TABLET PO ×2 (07:27→15:21)
[2022-02-15] MEDS: NYSTATIN POWDER 1 APPLIC TOPICAL ×2 (07:27→20:12)
[2022-02-15] MEDS: FUROSEMIDE 20 MG TABLET PO (07:27)
[2022-02-15] MEDS: PRESERVISION AREDS 1 EACH PO ×2 (07:27→15:21)
[2022-02-15] MEDS: METOPROLOL TARTRATE 50 MG TABLET PO ×2 (07:27→15:21)
[2022-02-15] MEDS: lisinopriL 40 MG TABLET PO (07:27)
[2022-02-15 15:00] VITALS: TEMP 36.4; O2SAT 96
[2022-02-15 23:00] VITALS: TEMP 36.4; O2SAT 96
[2022-02-16 07:00] VITALS: TEMP 37.1; O2SAT 96
[2022-02-16] MEDS: AMLODIPINE 10 MG TABLET PO (07:27)
[2022-02-16] MEDS: FLUOXETINE HCL 40 MG CAPSULE PO (07:27)
[2022-02-16] MEDS: HYDROCORTISONE 1 % CREAM 1 APPLIC TOPICAL ×2 (07:27→15:38)
[2022-02-16] MEDS: PRESERVISION AREDS 1 EACH PO ×2 (07:27→15:38)
[2022-02-16] MEDS: FUROSEMIDE 20 MG TABLET PO (07:27)
[2022-02-16] MEDS: FLUOXETINE HCL 20 MG CAPSULE PO (07:27)
[2022-02-16] MEDS: INSULIN GLARGINE,HUM.REC.ANLOG 100 UNIT/ML INSULN.PEN 22 UNIT SUBCUT (07:27)
[2022-02-16] MEDS: METOPROLOL TARTRATE 50 MG TABLET PO ×2 (07:27→15:38)
[2022-02-16] MEDS: ASPIRIN EC 325 MG TABLET PO (07:27)
[2022-02-16] MEDS: BUSPIRONE 10 MG TABLET PO ×2 (07:27→15:38)
[2022-02-16] MEDS: lisinopriL 40 MG TABLET PO (07:27)
[2022-02-16] MEDS: NYSTATIN POWDER 1 APPLIC TOPICAL ×2 (07:28→19:53)
[2022-02-16] MEDS: ROSUVASTATIN CALCIUM 20 MG TABLET PO (07:28)
[2022-02-16] MEDS: POTASSIUM CHLORIDE 20 MEQ TAB.ER.PRT 40 MEQ PO ×2 (07:28→15:38)
[2022-02-16] MEDS: TRAMADOL HCL 50 MG TABLET PO ×3 (07:28→19:53)
[2022-02-16 17:15] VITALS: TEMP 36.6; O2SAT 96
[2022-02-16 23:00] VITALS: TEMP 36.4; O2SAT 94
[2022-02-17] MEDS: AMLODIPINE 10 MG TABLET PO (07:31)
[2022-02-17] MEDS: FLUOXETINE HCL 40 MG CAPSULE PO (07:31)
[2022-02-17] MEDS: ASPIRIN EC 325 MG TABLET PO (07:31)
[2022-02-17] MEDS: BUSPIRONE 10 MG TABLET PO ×2 (07:31→15:52)
[2022-02-17] MEDS: HYDROCORTISONE 1 % CREAM 1 APPLIC TOPICAL ×2 (07:32→15:52)
[2022-02-17] MEDS: lisinopriL 40 MG TABLET PO (07:32)
[2022-02-17] MEDS: FLUOXETINE HCL 20 MG CAPSULE PO (07:32)
[2022-02-17] MEDS: FUROSEMIDE 20 MG TABLET PO (07:32)
[2022-02-17] MEDS: NYSTATIN POWDER 1 APPLIC TOPICAL ×2 (07:33→20:57)
[2022-02-17] MEDS: PRESERVISION AREDS 1 EACH PO ×2 (07:33→15:54)
[2022-02-17] MEDS: METOPROLOL TARTRATE 50 MG TABLET PO ×2 (07:33→15:53)
[2022-02-17] MEDS: POTASSIUM CHLORIDE 20 MEQ TAB.ER.PRT 40 MEQ PO ×2 (07:34→15:54)
[2022-02-17] MEDS: ROSUVASTATIN CALCIUM 20 MG TABLET PO (07:35)
[2022-02-17] MEDS: TRAMADOL HCL 50 MG TABLET PO ×3 (07:35→20:57)
[2022-02-17] MEDS: INSULIN GLARGINE,HUM.REC.ANLOG 100 UNIT/ML INSULN.PEN 22 UNIT SUBCUT (07:44)
[2022-02-17 10:19] VITALS: TEMP 36; O2SAT 94
[2022-02-17 15:00] VITALS: TEMP 36; O2SAT 95
[2022-02-17 23:00] VITALS: TEMP 36.4; O2SAT 95
[2022-02-18] MEDS: AMLODIPINE 10 MG TABLET PO (07:20)
[2022-02-18] MEDS: METOPROLOL TARTRATE 50 MG TABLET PO ×2 (07:21→15:22)
[2022-02-18] MEDS: FLUOXETINE HCL 20 MG CAPSULE PO (07:21)
[2022-02-18] MEDS: BUSPIRONE 10 MG TABLET PO ×2 (07:21→15:22)
[2022-02-18] MEDS: ASPIRIN EC 325 MG TABLET PO (07:21)
[2022-02-18] MEDS: PRESERVISION AREDS 1 EACH PO ×2 (07:21→15:22)
[2022-02-18] MEDS: HYDROCORTISONE 1 % CREAM 1 APPLIC TOPICAL ×2 (07:21→15:22)
[2022-02-18] MEDS: FLUOXETINE HCL 40 MG CAPSULE PO (07:21)
[2022-02-18] MEDS: lisinopriL 40 MG TABLET PO (07:21)
[2022-02-18] MEDS: NYSTATIN POWDER 1 APPLIC TOPICAL ×2 (07:21→20:16)
[2022-02-18] MEDS: FUROSEMIDE 20 MG TABLET PO (07:21)
[2022-02-18] MEDS: POTASSIUM CHLORIDE 20 MEQ TAB.ER.PRT 40 MEQ PO ×2 (07:22→15:22)
[2022-02-18] MEDS: TRAMADOL HCL 50 MG TABLET PO ×3 (07:22→20:16)
[2022-02-18] MEDS: ROSUVASTATIN CALCIUM 20 MG TABLET PO (07:22)
[2022-02-18] MEDS: INSULIN GLARGINE,HUM.REC.ANLOG 100 UNIT/ML INSULN.PEN 22 UNIT SUBCUT (07:43)
[2022-02-18 10:34] VITALS: TEMP 36.1; O2SAT 94
[2022-02-18 15:00] VITALS: TEMP 37; O2SAT 95
[2022-02-18 23:00] VITALS: TEMP 36.2; O2SAT 96
[2022-02-19] MEDS: AMLODIPINE 10 MG TABLET PO (07:12)
[2022-02-19] MEDS: ASPIRIN EC 325 MG TABLET PO (07:12)
[2022-02-19] MEDS: METOPROLOL TARTRATE 50 MG TABLET PO ×2 (07:13→15:42)
[2022-02-19] MEDS: HYDROCORTISONE 1 % CREAM 1 APPLIC TOPICAL ×2 (07:13→15:42)
[2022-02-19] MEDS: lisinopriL 40 MG TABLET PO (07:13)
[2022-02-19] MEDS: FLUOXETINE HCL 40 MG CAPSULE PO (07:13)
[2022-02-19] MEDS: FLUOXETINE HCL 20 MG CAPSULE PO (07:13)
[2022-02-19] MEDS: BUSPIRONE 10 MG TABLET PO ×2 (07:13→15:42)
[2022-02-19] MEDS: FUROSEMIDE 20 MG TABLET PO (07:13)
[2022-02-19] MEDS: PRESERVISION AREDS 1 EACH PO ×2 (07:14→15:43)
[2022-02-19] MEDS: TRAMADOL HCL 50 MG TABLET PO ×3 (07:15→20:10)
[2022-02-19] MEDS: POTASSIUM CHLORIDE 20 MEQ TAB.ER.PRT 40 MEQ PO ×2 (07:15→15:43)
[2022-02-19] MEDS: ROSUVASTATIN CALCIUM 20 MG TABLET PO (07:15)
[2022-02-19] MEDS: INSULIN GLARGINE,HUM.REC.ANLOG 100 UNIT/ML INSULN.PEN 22 UNIT SUBCUT (08:00)
[2022-02-19 12:54] VITALS: TEMP 36.8; O2SAT 94
[2022-02-19 17:26] VITALS: TEMP 37.1; O2SAT 94
[2022-02-19] MEDS: NYSTATIN POWDER 1 APPLIC TOPICAL (20:10)
[2022-02-19 23:00] VITALS: TEMP 36.2; O2SAT 95
[2022-02-20 07:00] VITALS: TEMP 36.7; O2SAT 95
[2022-02-20] MEDS: PRESERVISION AREDS 1 EACH PO ×2 (07:14→15:13)
[2022-02-20] MEDS: AMLODIPINE 10 MG TABLET PO (07:14)
[2022-02-20] MEDS: FLUOXETINE HCL 20 MG CAPSULE PO (07:14)
[2022-02-20] MEDS: FLUOXETINE HCL 40 MG CAPSULE PO (07:14)
[2022-02-20] MEDS: NYSTATIN POWDER 1 APPLIC TOPICAL ×2 (07:14→20:35)
[2022-02-20] MEDS: METOPROLOL TARTRATE 50 MG TABLET PO ×2 (07:14→15:13)
[2022-02-20] MEDS: ASPIRIN EC 325 MG TABLET PO (07:14)
[2022-02-20] MEDS: ROSUVASTATIN CALCIUM 20 MG TABLET PO (07:14)
[2022-02-20] MEDS: BUSPIRONE 10 MG TABLET PO ×2 (07:14→15:13)
[2022-02-20] MEDS: lisinopriL 40 MG TABLET PO (07:14)
[2022-02-20] MEDS: POTASSIUM CHLORIDE 20 MEQ TAB.ER.PRT 40 MEQ PO ×2 (07:14→15:13)
[2022-02-20] MEDS: FUROSEMIDE 20 MG TABLET PO (07:14)
[2022-02-20] MEDS: HYDROCORTISONE 1 % CREAM 1 APPLIC TOPICAL ×2 (07:14→15:13)
[2022-02-20] MEDS: TRAMADOL HCL 50 MG TABLET PO ×3 (07:15→20:35)
[2022-02-20] MEDS: INSULIN GLARGINE,HUM.REC.ANLOG 100 UNIT/ML INSULN.PEN 22 UNIT SUBCUT (07:49)
[2022-02-20 14:35] LABS: SARS PCR* Negative SARS-CoV-2 (Negative)
--- NOTE | 2022-02-20 16:40 | PC.NURSE ---
MDS: Reviewed ADL documentation in the 7 day look-back for the MDS with an KYLAH of 02/09/22. Resident was documented to have received limited assistance with mobility. Resident is SBA with mobility, transfers, and ambulation. Spoke with staff, this was documented in error. Coded as supervision on the MDS.
[2022-02-20 21:10] VITALS: TEMP 36; O2SAT 99
[2022-02-20 23:00] VITALS: TEMP 36.3; O2SAT 96
[2022-02-21 07:00] VITALS: TEMP 36.9; O2SAT 96
[2022-02-21] MEDS: METOPROLOL TARTRATE 50 MG TABLET PO ×2 (08:17→16:15)
[2022-02-21] MEDS: FLUOXETINE HCL 40 MG CAPSULE PO (08:17)
[2022-02-21] MEDS: HYDROCORTISONE 1 % CREAM 1 APPLIC TOPICAL ×2 (08:17→16:15)
[2022-02-21] MEDS: NYSTATIN POWDER 1 APPLIC TOPICAL ×2 (08:17→19:59)
[2022-02-21] MEDS: BUSPIRONE 10 MG TABLET PO ×2 (08:17→16:15)
[2022-02-21] MEDS: lisinopriL 40 MG TABLET PO (08:17)
[2022-02-21] MEDS: FUROSEMIDE 20 MG TABLET PO (08:17)
[2022-02-21] MEDS: INSULIN GLARGINE,HUM.REC.ANLOG 100 UNIT/ML INSULN.PEN 22 UNIT SUBCUT (08:17)
[2022-02-21] MEDS: AMLODIPINE 10 MG TABLET PO (08:17)
[2022-02-21] MEDS: FLUOXETINE HCL 20 MG CAPSULE PO (08:17)
[2022-02-21] MEDS: ASPIRIN EC 325 MG TABLET PO (08:17)
[2022-02-21] MEDS: PRESERVISION AREDS 1 EACH PO ×2 (08:17→16:15)
[2022-02-21] MEDS: ROSUVASTATIN CALCIUM 20 MG TABLET PO (08:18)
[2022-02-21] MEDS: POTASSIUM CHLORIDE 20 MEQ TAB.ER.PRT 40 MEQ PO ×2 (08:18→16:15)
[2022-02-21] MEDS: TRAMADOL HCL 50 MG TABLET PO ×3 (08:18→19:59)
--- NOTE | 2022-02-21 08:55 | REH.OT ---
Due to Physical and Cognitive deficits, resident can drink hot liquids only at a table.
[2022-02-21 14:46] VITALS: BMI 33.6
[2022-02-21 15:00] VITALS: TEMP 36.6; O2SAT 96; BMI 34.0
[2022-02-21 23:00] VITALS: TEMP 36.4; O2SAT 97
--- NOTE | 2022-02-21 23:02 | PC.NURSE ---
CARE CONFERENCE: meeting held with care team members from nursing, dietary, activities and child protective services social worker. Residents family not present, did send out an email to daughter with update and with the question if she had anything to discuss or would like a medication list. Resident present. Nursing reviewed that resident continues to need 1 ANISH extensive assistance with dressing, grooming, mobility and bathing. Prolonged chronic weakness. Propelled by staff in wheelchair. Resident has been coming out to the dining room for meals and activities more frequently in the past three months. Resident able to feed self after setup. POLST reviewed. Is DNR/DNI. Uses no restraints. Does use 2 side rails up to assist with positioning. Is not able to self administrate own medications due to dementia. Vulnerability- is at risk for being harmed. Resident pleased with care at this time. There are no discharge plans, [facility] care.
[2022-02-22 07:00] VITALS: TEMP 36.9; O2SAT 94
[2022-02-22] MEDS: ASPIRIN EC 325 MG TABLET PO (08:12)
[2022-02-22] MEDS: INSULIN GLARGINE,HUM.REC.ANLOG 100 UNIT/ML INSULN.PEN 22 UNIT SUBCUT (08:12)
[2022-02-22] MEDS: AMLODIPINE 10 MG TABLET PO (08:12)
[2022-02-22] MEDS: HYDROCORTISONE 1 % CREAM 1 APPLIC TOPICAL ×2 (08:13→15:20)
[2022-02-22] MEDS: PRESERVISION AREDS 1 EACH PO ×2 (08:13→15:20)
[2022-02-22] MEDS: NYSTATIN POWDER 1 APPLIC TOPICAL ×2 (08:13→20:29)
[2022-02-22] MEDS: ROSUVASTATIN CALCIUM 20 MG TABLET PO (08:13)
[2022-02-22] MEDS: TRAMADOL HCL 50 MG TABLET PO ×3 (08:13→20:29)
[2022-02-22] MEDS: METOPROLOL TARTRATE 50 MG TABLET PO ×2 (08:13→15:20)
[2022-02-22] MEDS: FUROSEMIDE 20 MG TABLET PO (08:13)
[2022-02-22] MEDS: POTASSIUM CHLORIDE 20 MEQ TAB.ER.PRT 40 MEQ PO ×2 (08:13→15:20)
[2022-02-22] MEDS: FLUOXETINE HCL 20 MG CAPSULE PO (08:13)
[2022-02-22] MEDS: lisinopriL 40 MG TABLET PO (08:13)
[2022-02-22] MEDS: FLUOXETINE HCL 40 MG CAPSULE PO (08:13)
[2022-02-22] MEDS: BUSPIRONE 10 MG TABLET PO ×2 (08:13→15:20)
--- NOTE | 2022-02-22 13:58 | PC.NURSE ---
Cath-Suprapubic cath was changed, immediate return noted, no problem's noted
[2022-02-22 15:00] VITALS: TEMP 36.5; O2SAT 96
--- NOTE | 2022-02-22 15:39 | PC.SOCIAL ---
Resident's care conference was held yesterday. All members of the team and resident were present. Resident remains stable, no s/s of depression noted. Resident had been seeing the in-house mental health therapist and does not want to see her anymore. Resident's care plan has been reviewed for Mood, VA, and behaviors.
[2022-02-22 23:00] VITALS: TEMP 36.1; O2SAT 95
--- NOTE | 2022-02-23 01:54 | PC.NURSE ---
Week #4---care plan problems #40+ reviewed. No changes made. Nothing added to temporary care plan. Will use call light for needs. No changes noted in hearing, vision, or orientation. No behavior problems at [facility]. Sleeping well. Remains on Buspar 10 mg BID and Fluoxetine 60 mg qd with no adverse effects noted.
[2022-02-23] MEDS: AMLODIPINE 10 MG TABLET PO (07:26)
[2022-02-23] MEDS: FLUOXETINE HCL 40 MG CAPSULE PO (07:26)
[2022-02-23] MEDS: ASPIRIN EC 325 MG TABLET PO (07:26)
[2022-02-23] MEDS: BUSPIRONE 10 MG TABLET PO ×2 (07:26→15:39)
[2022-02-23] MEDS: FLUOXETINE HCL 20 MG CAPSULE PO (07:27)
[2022-02-23] MEDS: FUROSEMIDE 20 MG TABLET PO (07:27)
[2022-02-23] MEDS: HYDROCORTISONE 1 % CREAM 1 APPLIC TOPICAL (07:27)
[2022-02-23] MEDS: lisinopriL 40 MG TABLET PO (07:28)
[2022-02-23] MEDS: PRESERVISION AREDS 1 EACH PO ×2 (07:28→15:40)
[2022-02-23] MEDS: METOPROLOL TARTRATE 50 MG TABLET PO ×2 (07:28→15:39)
[2022-02-23] MEDS: TRAMADOL HCL 50 MG TABLET PO ×3 (07:29→19:59)
[2022-02-23] MEDS: POTASSIUM CHLORIDE 20 MEQ TAB.ER.PRT 40 MEQ PO ×2 (07:29→15:40)
[2022-02-23] MEDS: ROSUVASTATIN CALCIUM 20 MG TABLET PO (07:29)
[2022-02-23] MEDS: NYSTATIN POWDER 1 APPLIC TOPICAL ×2 (07:29→19:59)
[2022-02-23] MEDS: INSULIN GLARGINE,HUM.REC.ANLOG 100 UNIT/ML INSULN.PEN 22 UNIT SUBCUT (07:56)
--- NOTE | 2022-02-23 08:32 | PC.SPIRITC ---
Late Entry for 02/22/2022: provided visit for support and connection.
[2022-02-23 09:46] VITALS: TEMP 36.5; O2SAT 97
--- NOTE | 2022-02-23 10:28 | PC.NURSE ---
Order: Change Hydrocortisone Cream to rash on (L) cheek to BID PRN.
[2022-02-23 15:00] VITALS: TEMP 36; O2SAT 96
[2022-02-23 23:00] VITALS: TEMP 36.3; O2SAT 96
[2022-02-24 07:00] VITALS: TEMP 36.6; O2SAT 98
[2022-02-24] MEDS: AMLODIPINE 10 MG TABLET PO (07:44)
[2022-02-24] MEDS: INSULIN GLARGINE,HUM.REC.ANLOG 100 UNIT/ML INSULN.PEN 22 UNIT SUBCUT (07:44)
[2022-02-24] MEDS: ASPIRIN EC 325 MG TABLET PO (07:44)
[2022-02-24] MEDS: TRAMADOL HCL 50 MG TABLET PO ×3 (07:45→19:53)
[2022-02-24] MEDS: POTASSIUM CHLORIDE 20 MEQ TAB.ER.PRT 40 MEQ PO ×2 (07:45→16:13)
[2022-02-24] MEDS: BUSPIRONE 10 MG TABLET PO ×2 (07:45→16:12)
[2022-02-24] MEDS: PRESERVISION AREDS 1 EACH PO ×2 (07:45→16:13)
[2022-02-24] MEDS: FLUOXETINE HCL 20 MG CAPSULE PO (07:45)
[2022-02-24] MEDS: NYSTATIN POWDER 1 APPLIC TOPICAL ×2 (07:45→19:53)
[2022-02-24] MEDS: FLUOXETINE HCL 40 MG CAPSULE PO (07:45)
[2022-02-24] MEDS: METOPROLOL TARTRATE 50 MG TABLET PO ×2 (07:45→16:12)
[2022-02-24] MEDS: lisinopriL 40 MG TABLET PO (07:45)
[2022-02-24] MEDS: ROSUVASTATIN CALCIUM 20 MG TABLET PO (07:45)
[2022-02-24] MEDS: FUROSEMIDE 20 MG TABLET PO (07:45)
[2022-02-24 17:51] VITALS: TEMP 36.4; O2SAT 97
[2022-02-24 23:00] VITALS: TEMP 36; O2SAT 95
[2022-02-25 07:00] VITALS: TEMP 37.1; O2SAT 95
[2022-02-25] MEDS: MAG HYDROX/ALUMINUM HYD/SIMETH 30 ML ORAL.SUSP PO (07:30)
[2022-02-25] MEDS: lisinopriL 40 MG TABLET PO (08:17)
[2022-02-25] MEDS: AMLODIPINE 10 MG TABLET PO (08:17)
[2022-02-25] MEDS: METOPROLOL TARTRATE 50 MG TABLET PO ×2 (08:17→16:58)
[2022-02-25] MEDS: FLUOXETINE HCL 40 MG CAPSULE PO (08:17)
[2022-02-25] MEDS: ASPIRIN EC 325 MG TABLET PO (08:17)
[2022-02-25] MEDS: FLUOXETINE HCL 20 MG CAPSULE PO (08:17)
[2022-02-25] MEDS: INSULIN GLARGINE,HUM.REC.ANLOG 100 UNIT/ML INSULN.PEN 22 UNIT SUBCUT (08:17)
[2022-02-25] MEDS: FUROSEMIDE 20 MG TABLET PO (08:17)
[2022-02-25] MEDS: BUSPIRONE 10 MG TABLET PO ×2 (08:17→16:58)
[2022-02-25] MEDS: NYSTATIN POWDER 1 APPLIC TOPICAL ×2 (08:18→20:36)
[2022-02-25] MEDS: PRESERVISION AREDS 1 EACH PO ×2 (08:18→16:58)
[2022-02-25] MEDS: TRAMADOL HCL 50 MG TABLET PO ×3 (08:18→20:36)
[2022-02-25] MEDS: ROSUVASTATIN CALCIUM 20 MG TABLET PO (08:18)
[2022-02-25] MEDS: POTASSIUM CHLORIDE 20 MEQ TAB.ER.PRT 40 MEQ PO ×2 (08:18→16:58)
--- NOTE | 2022-02-25 10:05 | PC.NURSE ---
Status/Swab-Sitting in W/C after ADL's completed I don't feel good at all my stomach is hurting face flushed, had multiple Kleenex on over bed table with yellow in color sputum present, Maalox 30cc given with no relief, face flushed T-98.8 SATS 95% R-20 BS present in all 4 quads, LS clear, refused to eat breakfast, at present has tears in eye's I still hurt had mod amt of thick yellow in color sputum on floor by W/C, placed on toilet after 10 min's I can't do anything, placed in bed per request, Covid Swab done at this time and sent to lab.
[2022-02-25 10:33] LABS: PCR FLU A Negative PCR FLU A (Negative); PCR FLU B Negative PCR FLU B (Negative)
[2022-02-25 10:35] LABS: SARS PCR* Negative SARS-CoV-2 (Negative)
--- NOTE | 2022-02-25 10:38 | PC.NURSE ---
Status-Swab test is negative, while resting in bed had a mod amt of emesis then a very large BM then a small emesis I'm beginning to feel better.
[2022-02-25 21:03] VITALS: TEMP 36.8; O2SAT 93
--- NOTE | 2022-02-25 21:06 | PC.NURSE ---
Status: Resident has x5 emesis and one blow out during the PM shift. Did not have anything to eat due to her refusal. Has been taking sips of water and, staying in bed.
[2022-02-26 00:30] VITALS: TEMP 36.9; O2SAT 88
--- NOTE | 2022-02-26 06:12 | PC.NURSE ---
Status/Dtr/Swab-Had mod amt of yellow in color with a scant amt of blood noted emesis x2 this shift, x1 was projectile, face is red and blotchy, very warm to the touch, When asked if in pain state's No when body is moved moan's in discomfort, BP 189/78 P-78 T-99.8 STATS 95% BS 216, LS clear, urine is clear, Human Resources Technician asked resident if would like to the ER stated No I want to stay here, Dtr Katarzyna was called @ 0600 message left to call [facility] for update, bed bath done along with linen change, mouth care done as well.
[2022-02-26 07:00] VITALS: TEMP 37.7; O2SAT 95
[2022-02-26 07:05] LABS: PCR FLU A Negative PCR FLU A (Negative); PCR FLU B Negative PCR FLU B (Negative)
[2022-02-26] MEDS: TRAMADOL HCL 50 MG TABLET PO ×3 (07:42→20:59)
[2022-02-26 08:19] LABS: SARS PCR* Negative SARS-CoV-2 (Negative)
[2022-02-26] MEDS: INSULIN GLARGINE,HUM.REC.ANLOG 100 UNIT/ML INSULN.PEN 22 UNIT SUBCUT (08:43)
--- NOTE | 2022-02-26 10:38 | PC.NURSE ---
Addendum entered by Leena Sanchez LPN 02/26/22 14:11: SECURITIES TELLER name Flores Espitia Original Note: Staus/Dtr/Center Customer Service Associate-Last Emesis was 0600, remains nauseated, refuses to eat, is taking small amt's of fluid's, at a time, face flushed, skin very warm to the touch, able to swallow 2 medications, refused all other's, afebrile 99.8-98.6, is up and dressed sitting in recliner, when asked does state is very nauseated, call placed to SECURITIES TELLER with update and request for antiemetic, new order is Zofran 4mg q6hrs PO PRN x3 days for N & V from nurse Lauren and Flores FLAHERTY, Dtr Katarzyna returned call and was updated on status Dtr is comfortable with resident's decision not to go to ER and Zofran order.
--- NOTE | 2022-02-26 13:13 | PC.NURSE ---
Status-taking sips of sprite, had few bites of Chix noodle soup at lunch then refused to eat anymore, also refused to take any medication's, is lethargic, at times difficult to wake, face flushed, T-100.3-100.5 skin warm to the touch, no emesis so far this shift, BP 162/81 P-74 SATS 93%, Dtr called and updated will come to [facility].
[2022-02-26] MEDS: ACETAMINOPHEN 650 MG SUPP PR (15:00)
[2022-02-26] MEDS: METOPROLOL TARTRATE 50 MG TABLET PO (16:15)
[2022-02-26 16:47] LABS: Appearance Urine Cloudy (Clear); Bilirubin Urine 2+ (Negative); Blood Urine 2+ (Negative); Color Urine Yellow (Yellow); Glucose Urine Trace (Negative); Ketones Urine Negative (Negative); Leukocyte Esterase Urine 1+ (Negative); Nitrite Urine Positive (Negative); Protein Urine 2+ (Negative); Specific Gravity Urine >= 1.030 (1.000-1.030); Urobilinogen Urine 0.2 (0.2-1.0)
--- NOTE | 2022-02-26 17:59 | PC.NURSE ---
Order: Verbal order taken by RN per Bonnie Ulloa MEDICAL TECHNOLOGIST MICROBIOLOGY. New order to collect a UA, with conditional UC. Also to encourage fluids and monitor resident for continued symptoms. Order read back and verified.
[2022-02-26 18:51] LABS: Bacteria Urine Many; RBC Urine 0-2 (0-2); Squamous Epithelial Cell Urine Few (None-Few); WBC Urine 25-50 (0-5)
[2022-02-26 18:52] LABS: Amorphous Sediment Urine Moderate
--- NOTE | 2022-02-26 21:38 | PC.NURSE ---
Order: Bactrim-Ds 1 tab PO BID x3 days for positive UA.
[2022-02-26 21:50] VITALS: TEMP 36.6; O2SAT 93
[2022-02-26 22:02] VITALS: BP 164/89; PULSE 66; RESP 18; TEMP 36.2; O2SAT 90
--- NOTE | 2022-02-26 22:03 | PC.NURSE ---
Status: Resident was sleeping for most of the shift and not responding. Electrical Controls Designer gave the 1600 Meds Ultram, Lyrica and, Metoprolol. The rest were non-admin. Resident perked up at 2100 when scheduled Ultram was given. Electrical Controls Designer asked resident if she was hungry and resident stated yes. Resident ate half of a ham sandwich before taking antibiotic. Vital signs are within normal limits for resident rales were noted on inspiration and expiration. Resident has not had an emesis during the PM shift. Last Vital Signs Temp 97.1 F L 02/26/22 22:02 Pulse 66 02/26/22 22:02 Resp 18 02/26/22 22:02 BP 164/89 H 02/26/22 22:02 Pulse Ox 90 02/26/22 22:02
[2022-02-26 23:00] VITALS: TEMP 36.1; O2SAT 90
--- NOTE | 2022-02-27 05:20 | PC.NURSE ---
Status---no nausea or vomiting during the noc. Took sips of diet Sprite when awake. Alert and verbalizing at baseline. Temp 97. O2 sat 90% on room air. Was coughing a little with some congestion noted.
[2022-02-27] MEDS: TRAMADOL HCL 50 MG TABLET PO ×3 (07:48→20:28)
[2022-02-27] MEDS: AMLODIPINE 10 MG TABLET PO (07:50)
[2022-02-27] MEDS: ASPIRIN EC 325 MG TABLET PO (07:50)
[2022-02-27] MEDS: FUROSEMIDE 20 MG TABLET PO (07:57)
[2022-02-27] MEDS: BUSPIRONE 10 MG TABLET PO ×2 (07:57→15:45)
[2022-02-27] MEDS: FLUOXETINE HCL 20 MG CAPSULE PO (07:57)
[2022-02-27] MEDS: FLUOXETINE HCL 40 MG CAPSULE PO (07:57)
[2022-02-27] MEDS: lisinopriL 40 MG TABLET PO (07:57)
[2022-02-27] MEDS: PRESERVISION AREDS 1 EACH PO ×2 (07:58→15:45)
[2022-02-27] MEDS: METOPROLOL TARTRATE 50 MG TABLET PO ×2 (07:58→15:45)
[2022-02-27] MEDS: POTASSIUM CHLORIDE 20 MEQ TAB.ER.PRT 40 MEQ PO ×2 (07:59→15:45)
[2022-02-27] MEDS: ROSUVASTATIN CALCIUM 20 MG TABLET PO (08:07)
[2022-02-27] MEDS: INSULIN GLARGINE,HUM.REC.ANLOG 100 UNIT/ML INSULN.PEN 22 UNIT SUBCUT (08:08)
[2022-02-27 10:45] VITALS: TEMP 36.8; O2SAT 96
--- NOTE | 2022-02-27 11:27 | PC.NURSE ---
COVID OUTBREAK TESTING: Resident provided verbal consent for outbreak COVID testing. Resident is currently asymptomatic. Resident/family will be notified only if resident is positive.
[2022-02-27 12:15] LABS: SARS PCR* Negative SARS-CoV-2 (Negative)
--- NOTE | 2022-02-27 13:24 | PC.NURSE ---
Addendum entered by Cyndy Farley LPN 02/27/22 13:48: lungs not lunch Original Note: Status: Resident did not have any nausea or emesis this shift. Ate 1/2 Spanish muffin for breakfast and refused lunch. Resident does have phlegm in throat but lunch sounds clear but diminished. Temp 98.2, O2 96% on room air. Still waiting for UC results but was started on ABO
[2022-02-27 21:10] VITALS: TEMP 36.7; O2SAT 91
--- NOTE | 2022-02-27 21:32 | PC.NURSE ---
Status: Resident has no emesis on this shift, temp is 98.1. Resident ate half a slice of toast with peanut butter and half a banana at 1600 before antibiotic was given and ate 25% of dinner.
[2022-02-27 23:00] VITALS: TEMP 36.3; O2SAT 90
[2022-02-28 07:00] VITALS: TEMP 37; O2SAT 94
[2022-02-28] MEDS: FLUOXETINE HCL 40 MG CAPSULE PO (07:52)
[2022-02-28] MEDS: BUSPIRONE 10 MG TABLET PO ×2 (07:52→16:26)
[2022-02-28] MEDS: INSULIN GLARGINE,HUM.REC.ANLOG 100 UNIT/ML INSULN.PEN 22 UNIT SUBCUT (07:52)
[2022-02-28] MEDS: AMLODIPINE 10 MG TABLET PO (07:52)
[2022-02-28] MEDS: FUROSEMIDE 20 MG TABLET PO (07:52)
[2022-02-28] MEDS: PRESERVISION AREDS 1 EACH PO ×2 (07:52→16:19)
[2022-02-28] MEDS: lisinopriL 40 MG TABLET PO (07:52)
[2022-02-28] MEDS: METOPROLOL TARTRATE 50 MG TABLET PO ×2 (07:52→16:26)
[2022-02-28] MEDS: FLUOXETINE HCL 20 MG CAPSULE PO (07:52)
[2022-02-28] MEDS: ASPIRIN EC 325 MG TABLET PO (07:52)
[2022-02-28] MEDS: POTASSIUM CHLORIDE 20 MEQ TAB.ER.PRT 40 MEQ PO ×2 (07:53→16:22)
[2022-02-28] MEDS: ROSUVASTATIN CALCIUM 20 MG TABLET PO (07:53)
[2022-02-28] MEDS: TRAMADOL HCL 50 MG TABLET PO ×3 (07:53→20:15)
--- NOTE | 2022-02-28 12:52 | PC.NURSE ---
Order-Bonnie CABINET MAKER here was updated on resident's skin no redness seen, new order Nystatin is PRN.
[2022-02-28 15:00] VITALS: TEMP 36.9; O2SAT 97; BMI 34.2
--- NOTE | 2022-02-28 20:45 | PC.NURSE ---
New Order: Bactrim-DS extended to 5 days per Artemio FLAHERTY on 02/28/22. Order re-written and faxed to Juan at 1831.
[2022-02-28 23:00] VITALS: TEMP 36.1; O2SAT 94
[2022-03-01] MEDS: guaiFENesin 100 MG/ML CUP PO ×2 (04:53→21:26)
[2022-03-01 07:00] VITALS: TEMP 36.9; O2SAT 96
[2022-03-01] MEDS: AMLODIPINE 10 MG TABLET PO (08:23)
[2022-03-01] MEDS: FLUOXETINE HCL 40 MG CAPSULE PO (08:23)
[2022-03-01] MEDS: ASPIRIN EC 325 MG TABLET PO (08:23)
[2022-03-01] MEDS: BUSPIRONE 10 MG TABLET PO ×2 (08:23→15:35)
[2022-03-01] MEDS: INSULIN GLARGINE,HUM.REC.ANLOG 100 UNIT/ML INSULN.PEN 22 UNIT SUBCUT (08:23)
[2022-03-01] MEDS: FUROSEMIDE 20 MG TABLET PO (08:24)
[2022-03-01] MEDS: ROSUVASTATIN CALCIUM 20 MG TABLET PO (08:24)
[2022-03-01] MEDS: FLUOXETINE HCL 20 MG CAPSULE PO (08:24)
[2022-03-01] MEDS: METOPROLOL TARTRATE 50 MG TABLET PO ×2 (08:24→15:36)
[2022-03-01] MEDS: lisinopriL 40 MG TABLET PO (08:24)
[2022-03-01] MEDS: POTASSIUM CHLORIDE 20 MEQ TAB.ER.PRT 40 MEQ PO ×2 (08:24→15:36)
[2022-03-01] MEDS: PRESERVISION AREDS 1 EACH PO ×2 (08:24→15:36)
[2022-03-01] MEDS: TRAMADOL HCL 50 MG TABLET PO ×3 (08:24→20:11)
[2022-03-01 15:00] VITALS: TEMP 36.4; O2SAT 96
--- NOTE | 2022-03-01 22:15 | PC.NURSE ---
Resident has had no emesis this shift. Ate 100% of soup at dinner. Temp 97.5, O2 96%. Face flushed. Cough is audible and chest congestion is heard. Given PRN Guaifenesin 10ml @ 2126 which was somewhat effective.
[2022-03-01 23:00] VITALS: TEMP 36.4; O2SAT 96
[2022-03-02 03:24] VITALS: BP 155/83; PULSE 68; RESP 18; TEMP 36.4; O2SAT 96
[2022-03-02] MEDS: ASPIRIN EC 325 MG TABLET PO (07:30)
[2022-03-02] MEDS: AMLODIPINE 10 MG TABLET PO (07:30)
[2022-03-02] MEDS: lisinopriL 40 MG TABLET PO (07:31)
[2022-03-02] MEDS: FLUOXETINE HCL 20 MG CAPSULE PO (07:31)
[2022-03-02] MEDS: FLUOXETINE HCL 40 MG CAPSULE PO (07:31)
[2022-03-02] MEDS: PRESERVISION AREDS 1 EACH PO ×2 (07:31→15:37)
[2022-03-02] MEDS: METOPROLOL TARTRATE 50 MG TABLET PO ×2 (07:31→15:36)
[2022-03-02] MEDS: FUROSEMIDE 20 MG TABLET PO ×2 (07:31→20:38)
[2022-03-02] MEDS: BUSPIRONE 10 MG TABLET PO ×2 (07:31→15:36)
[2022-03-02] MEDS: ROSUVASTATIN CALCIUM 20 MG TABLET PO (07:32)
[2022-03-02] MEDS: POTASSIUM CHLORIDE 20 MEQ TAB.ER.PRT 40 MEQ PO ×2 (07:32→15:37)
[2022-03-02] MEDS: TRAMADOL HCL 50 MG TABLET PO ×3 (07:33→20:38)
[2022-03-02] MEDS: INSULIN GLARGINE,HUM.REC.ANLOG 100 UNIT/ML INSULN.PEN 22 UNIT SUBCUT (08:03)
--- NOTE | 2022-03-02 08:36 | CRLHL7_ITS ---
For Patients: As a result of the Century Cures Act, medical imaging exams and procedure reports are released immediately into your electronic medical record. You may view this report before your referring provider. If you have questions, please contact your health care provider. INDICATION: Cough, aspiration. TECHNIQUE: Chest 1 views. COMPARISON: None. FINDINGS: Cardiovascular and mediastinum: Heart size and vasculature are normal in caliber and appearance. Calcification in the aortic arch. Lungs and pleural spaces: Mild bilateral interstitial opacities most prominent in the lung periphery. Minimal left basal opacities possibly atelectasis. No large pleural effusion. No pneumothorax present Bones and soft tissues: No significant findings. IMPRESSION: Mild bilateral interstitial opacities most prominent in the lung periphery correlate for viral pneumonitis or mild interstitial edema. Aspiration would still be in the differential. Minimal left basilar opacity likely atelectasis. Dictated by Tejas Alejandro MD @ 03/02/2022 10:37:02 AM (Electronically Signed)
[2022-03-02 10:42] LABS: SARS PCR* Negative SARS-CoV-2 (Negative)
--- NOTE | 2022-03-02 12:13 | PC.NURSE ---
Order: RADIO REPAIR TEACHER, rAtemio - updated of coughing after episode of emesis on the weekend. Chest X-ray ordered.
--- NOTE | 2022-03-02 12:15 | PC.NURSE ---
Covid Swab test done.
[2022-03-02] MEDS: guaiFENesin 100 MG/ML CUP PO ×2 (13:13→20:41)
[2022-03-02 13:27] VITALS: TEMP 36.6; O2SAT 94
--- NOTE | 2022-03-02 13:35 | PC.NURSE ---
Order: Chest x-ray results sent to BING Ulloa WATER POLLUTION SCIENTIST who order the following: Continue with Bactrim DS as ordered for UTI, Increase furosemide 20mg BID x7 days for interstitial edema, then continue 20mg qday after that
[2022-03-02 21:54] VITALS: TEMP 36.6; O2SAT 94
[2022-03-02 23:00] VITALS: TEMP 36.4; O2SAT 93
[2022-03-03] MEDS: guaiFENesin 100 MG/ML CUP PO ×2 (01:12→08:00)
[2022-03-03] MEDS: ASPIRIN EC 325 MG TABLET PO (07:29)
[2022-03-03] MEDS: FLUOXETINE HCL 40 MG CAPSULE PO (07:29)
[2022-03-03] MEDS: AMLODIPINE 10 MG TABLET PO (07:29)
[2022-03-03] MEDS: BUSPIRONE 10 MG TABLET PO ×2 (07:29→15:22)
[2022-03-03] MEDS: lisinopriL 40 MG TABLET PO (07:30)
[2022-03-03] MEDS: FLUOXETINE HCL 20 MG CAPSULE PO (07:30)
[2022-03-03] MEDS: METOPROLOL TARTRATE 50 MG TABLET PO ×2 (07:30→15:23)
[2022-03-03] MEDS: PRESERVISION AREDS 1 EACH PO ×2 (07:30→15:23)
[2022-03-03] MEDS: FUROSEMIDE 20 MG TABLET PO ×2 (07:30→15:22)
[2022-03-03] MEDS: ROSUVASTATIN CALCIUM 20 MG TABLET PO (07:31)
[2022-03-03] MEDS: TRAMADOL HCL 50 MG TABLET PO ×3 (07:31→20:40)
[2022-03-03] MEDS: POTASSIUM CHLORIDE 20 MEQ TAB.ER.PRT 40 MEQ PO ×2 (07:31→15:23)
[2022-03-03] MEDS: INSULIN GLARGINE,HUM.REC.ANLOG 100 UNIT/ML INSULN.PEN 22 UNIT SUBCUT (07:49)
[2022-03-03 10:31] VITALS: TEMP 36.6; O2SAT 95
[2022-03-03 10:32] VITALS: BMI 30.6
[2022-03-03 16:00] VITALS: TEMP 36.1; O2SAT 94
[2022-03-04] MEDS: guaiFENesin 100 MG/ML CUP PO ×2 (02:12→20:54)
[2022-03-04] MEDS: AMLODIPINE 10 MG TABLET PO (07:58)
[2022-03-04] MEDS: ASPIRIN EC 325 MG TABLET PO (07:58)
[2022-03-04] MEDS: BUSPIRONE 10 MG TABLET PO ×2 (07:59→15:00)
[2022-03-04] MEDS: INSULIN GLARGINE,HUM.REC.ANLOG 100 UNIT/ML INSULN.PEN 22 UNIT SUBCUT (07:59)
[2022-03-04] MEDS: FLUOXETINE HCL 20 MG CAPSULE PO (07:59)
[2022-03-04] MEDS: FLUOXETINE HCL 40 MG CAPSULE PO (07:59)
[2022-03-04] MEDS: PRESERVISION AREDS 1 EACH PO ×2 (08:00→15:00)
[2022-03-04] MEDS: TRAMADOL HCL 50 MG TABLET PO ×3 (08:00→20:36)
[2022-03-04] MEDS: ROSUVASTATIN CALCIUM 20 MG TABLET PO (08:00)
[2022-03-04] MEDS: FUROSEMIDE 20 MG TABLET PO ×2 (08:00→15:00)
[2022-03-04] MEDS: METOPROLOL TARTRATE 50 MG TABLET PO ×2 (08:00→15:00)
[2022-03-04] MEDS: lisinopriL 40 MG TABLET PO (08:00)
[2022-03-04] MEDS: POTASSIUM CHLORIDE 20 MEQ TAB.ER.PRT 40 MEQ PO ×2 (08:00→15:00)
[2022-03-04 10:00] VITALS: BMI 30.9
[2022-03-04 16:00] VITALS: TEMP 36.6; O2SAT 95
[2022-03-05] MEDS: guaiFENesin 100 MG/ML CUP PO (00:57)
[2022-03-05] MEDS: AMLODIPINE 10 MG TABLET PO (07:24)
[2022-03-05] MEDS: ASPIRIN EC 325 MG TABLET PO (07:24)
[2022-03-05] MEDS: METOPROLOL TARTRATE 50 MG TABLET PO ×2 (07:25→15:03)
[2022-03-05] MEDS: FLUOXETINE HCL 20 MG CAPSULE PO (07:25)
[2022-03-05] MEDS: FUROSEMIDE 20 MG TABLET PO ×2 (07:25→15:03)
[2022-03-05] MEDS: FLUOXETINE HCL 40 MG CAPSULE PO (07:25)
[2022-03-05] MEDS: lisinopriL 40 MG TABLET PO (07:25)
[2022-03-05] MEDS: BUSPIRONE 10 MG TABLET PO ×2 (07:25→15:03)
[2022-03-05] MEDS: TRAMADOL HCL 50 MG TABLET PO ×3 (07:26→19:51)
[2022-03-05] MEDS: ROSUVASTATIN CALCIUM 20 MG TABLET PO (07:26)
[2022-03-05] MEDS: PRESERVISION AREDS 1 EACH PO ×2 (07:26→15:04)
[2022-03-05] MEDS: POTASSIUM CHLORIDE 20 MEQ TAB.ER.PRT 40 MEQ PO ×2 (07:26→15:04)
[2022-03-05] MEDS: INSULIN GLARGINE,HUM.REC.ANLOG 100 UNIT/ML INSULN.PEN 22 UNIT SUBCUT (08:17)
[2022-03-05 10:40] VITALS: BMI 30.2
[2022-03-05 16:00] VITALS: TEMP 35.6; O2SAT 94
[2022-03-06] MEDS: ASPIRIN EC 325 MG TABLET PO (07:00)
[2022-03-06] MEDS: AMLODIPINE 10 MG TABLET PO (07:00)
[2022-03-06] MEDS: ROSUVASTATIN CALCIUM 20 MG TABLET PO (07:01)
[2022-03-06] MEDS: BUSPIRONE 10 MG TABLET PO ×2 (07:01→15:06)
[2022-03-06] MEDS: POTASSIUM CHLORIDE 20 MEQ TAB.ER.PRT 40 MEQ PO ×2 (07:01→15:07)
[2022-03-06] MEDS: FLUOXETINE HCL 20 MG CAPSULE PO (07:01)
[2022-03-06] MEDS: lisinopriL 40 MG TABLET PO (07:01)
[2022-03-06] MEDS: METOPROLOL TARTRATE 50 MG TABLET PO ×2 (07:01→15:07)
[2022-03-06] MEDS: TRAMADOL HCL 50 MG TABLET PO ×3 (07:01→20:18)
[2022-03-06] MEDS: FUROSEMIDE 20 MG TABLET PO ×2 (07:01→15:07)
[2022-03-06] MEDS: FLUOXETINE HCL 40 MG CAPSULE PO (07:01)
[2022-03-06] MEDS: PRESERVISION AREDS 1 EACH PO ×2 (07:01→15:07)
[2022-03-06] MEDS: INSULIN GLARGINE,HUM.REC.ANLOG 100 UNIT/ML INSULN.PEN 22 UNIT SUBCUT (08:43)
[2022-03-06 16:00] VITALS: TEMP 35.5; O2SAT 96
[2022-03-07] MEDS: guaiFENesin 100 MG/ML CUP PO (04:34)
[2022-03-07] MEDS: INSULIN GLARGINE,HUM.REC.ANLOG 100 UNIT/ML INSULN.PEN 22 UNIT SUBCUT (07:22)
[2022-03-07] MEDS: AMLODIPINE 10 MG TABLET PO (07:22)
[2022-03-07] MEDS: ASPIRIN EC 325 MG TABLET PO (07:22)
[2022-03-07] MEDS: BUSPIRONE 10 MG TABLET PO ×2 (07:22→15:46)
[2022-03-07] MEDS: lisinopriL 40 MG TABLET PO (07:23)
[2022-03-07] MEDS: FUROSEMIDE 20 MG TABLET PO ×2 (07:23→15:46)
[2022-03-07] MEDS: METOPROLOL TARTRATE 50 MG TABLET PO ×2 (07:23→15:46)
[2022-03-07] MEDS: POTASSIUM CHLORIDE 20 MEQ TAB.ER.PRT 40 MEQ PO ×2 (07:23→15:47)
[2022-03-07] MEDS: FLUOXETINE HCL 20 MG CAPSULE PO (07:23)
[2022-03-07] MEDS: PRESERVISION AREDS 1 EACH PO ×2 (07:23→15:47)
[2022-03-07] MEDS: TRAMADOL HCL 50 MG TABLET PO ×3 (07:23→19:31)
[2022-03-07] MEDS: ROSUVASTATIN CALCIUM 20 MG TABLET PO (07:23)
[2022-03-07] MEDS: FLUOXETINE HCL 40 MG CAPSULE PO (07:23)
[2022-03-07 20:35] VITALS: TEMP 36.4; O2SAT 96
[2022-03-07 20:36] VITALS: BMI 30.4
[2022-03-08] MEDS: AMLODIPINE 10 MG TABLET PO (07:32)
[2022-03-08] MEDS: ASPIRIN EC 325 MG TABLET PO (07:32)
[2022-03-08] MEDS: lisinopriL 40 MG TABLET PO (07:37)
[2022-03-08] MEDS: INSULIN GLARGINE,HUM.REC.ANLOG 100 UNIT/ML INSULN.PEN 22 UNIT SUBCUT (07:37)
[2022-03-08] MEDS: FUROSEMIDE 20 MG TABLET PO ×2 (07:37→15:22)
[2022-03-08] MEDS: METOPROLOL TARTRATE 50 MG TABLET PO ×2 (07:37→15:22)
[2022-03-08] MEDS: PRESERVISION AREDS 1 EACH PO ×2 (07:37→15:22)
[2022-03-08] MEDS: BUSPIRONE 10 MG TABLET PO ×2 (07:37→15:21)
[2022-03-08] MEDS: FLUOXETINE HCL 40 MG CAPSULE PO (07:37)
[2022-03-08] MEDS: FLUOXETINE HCL 20 MG CAPSULE PO (07:37)
[2022-03-08] MEDS: ROSUVASTATIN CALCIUM 20 MG TABLET PO (07:38)
[2022-03-08] MEDS: POTASSIUM CHLORIDE 20 MEQ TAB.ER.PRT 40 MEQ PO ×2 (07:38→15:22)
[2022-03-08] MEDS: TRAMADOL HCL 50 MG TABLET PO ×3 (07:38→19:30)
[2022-03-08 16:00] VITALS: TEMP 35.6; O2SAT 95
--- NOTE | 2022-03-09 02:32 | PC.NURSE ---
Week #1---care plan problems #1-19 reviewed. No changes made. Nothing added to temporary care plan. Was on Bactrim DS for 5 days for a UTI which has resolved. Usually does not drink anything during the noc. Does have a covered mug of water available. Pain---no c/o's pain at noc. Continues to receive Ultram 50 mg TID and q6h prn.
[2022-03-09] MEDS: AMLODIPINE 10 MG TABLET PO (07:54)
[2022-03-09] MEDS: ASPIRIN EC 325 MG TABLET PO (07:54)
[2022-03-09] MEDS: FLUOXETINE HCL 20 MG CAPSULE PO (07:55)
[2022-03-09] MEDS: FUROSEMIDE 20 MG TABLET PO (07:55)
[2022-03-09] MEDS: FLUOXETINE HCL 40 MG CAPSULE PO (07:55)
[2022-03-09] MEDS: lisinopriL 40 MG TABLET PO (07:55)
[2022-03-09] MEDS: BUSPIRONE 10 MG TABLET PO ×2 (07:55→15:18)
[2022-03-09] MEDS: PRESERVISION AREDS 1 EACH PO ×2 (07:56→15:18)
[2022-03-09] MEDS: POTASSIUM CHLORIDE 20 MEQ TAB.ER.PRT 40 MEQ PO ×2 (07:56→15:18)
[2022-03-09] MEDS: TRAMADOL HCL 50 MG TABLET PO ×3 (07:56→20:09)
[2022-03-09] MEDS: ROSUVASTATIN CALCIUM 20 MG TABLET PO (07:56)
[2022-03-09] MEDS: METOPROLOL TARTRATE 50 MG TABLET PO ×2 (07:56→15:18)
[2022-03-09] MEDS: INSULIN GLARGINE,HUM.REC.ANLOG 100 UNIT/ML INSULN.PEN 22 UNIT SUBCUT (08:01)
--- NOTE | 2022-03-09 10:01 | PC.SPIRITC ---
provided visit for connection and support.
[2022-03-09] MEDS: guaiFENesin 100 MG/ML CUP PO (10:27)
--- NOTE | 2022-03-09 11:15 | PC.NURSE ---
Week #1: Care plan problems 1-19 and temporary care plan reviewed. No changes made. Nothing added to temporary care plan. Resident needs extensive assist of one with dressing, grooming, & bathing. Encourage participation as able. Is able to do oral cares after set up. And independent with feeding after set set up. Is on regular diet per request. No problems with chewing or swallowing noted. Was on Bactrim x5 days for UTI & has resolved. Pain: Has chronic pain. No complain of pain this past month. Pain is controlled with Lyrica 300mg BID, Ultram 50mg TID & Q6H PRN. She can communicate need for pain.
[2022-03-09 16:43] VITALS: BP 141/69; PULSE 62; RESP 18; TEMP 36.3; O2SAT 96
[2022-03-09 21:30] VITALS: TEMP 36.3; O2SAT 96
[2022-03-10] MEDS: ROSUVASTATIN CALCIUM 20 MG TABLET PO (07:34)
[2022-03-10] MEDS: POTASSIUM CHLORIDE 20 MEQ TAB.ER.PRT 40 MEQ PO ×2 (07:34→15:37)
[2022-03-10] MEDS: METOPROLOL TARTRATE 50 MG TABLET PO ×2 (07:34→15:37)
[2022-03-10] MEDS: PRESERVISION AREDS 1 EACH PO ×2 (07:34→15:37)
[2022-03-10] MEDS: TRAMADOL HCL 50 MG TABLET PO ×3 (07:34→20:30)
[2022-03-10] MEDS: lisinopriL 40 MG TABLET PO (07:34)
[2022-03-10] MEDS: FUROSEMIDE 40 MG TABLET 20 MG PO (07:35)
[2022-03-10] MEDS: FLUOXETINE HCL 20 MG CAPSULE PO (07:35)
[2022-03-10] MEDS: FLUOXETINE HCL 40 MG CAPSULE PO (07:35)
[2022-03-10] MEDS: BUSPIRONE 10 MG TABLET PO ×2 (07:36→15:37)
[2022-03-10] MEDS: ASPIRIN EC 325 MG TABLET PO (07:36)
[2022-03-10] MEDS: AMLODIPINE 10 MG TABLET PO (07:36)
[2022-03-10] MEDS: INSULIN GLARGINE,HUM.REC.ANLOG 100 UNIT/ML INSULN.PEN 22 UNIT SUBCUT (08:26)
[2022-03-10 21:15] VITALS: TEMP 36.3; O2SAT 95
[2022-03-11] MEDS: AMLODIPINE 10 MG TABLET PO (08:43)
[2022-03-11] MEDS: FLUOXETINE HCL 40 MG CAPSULE PO (08:44)
[2022-03-11] MEDS: BUSPIRONE 10 MG TABLET PO ×2 (08:44→15:20)
[2022-03-11] MEDS: ASPIRIN EC 325 MG TABLET PO (08:44)
[2022-03-11] MEDS: METOPROLOL TARTRATE 50 MG TABLET PO ×2 (08:45→15:20)
[2022-03-11] MEDS: lisinopriL 40 MG TABLET PO (08:45)
[2022-03-11] MEDS: FUROSEMIDE 40 MG TABLET 20 MG PO (08:45)
[2022-03-11] MEDS: FLUOXETINE HCL 20 MG CAPSULE PO (08:45)
[2022-03-11] MEDS: POTASSIUM CHLORIDE 20 MEQ TAB.ER.PRT 40 MEQ PO ×2 (08:46→15:21)
[2022-03-11] MEDS: PRESERVISION AREDS 1 EACH PO ×2 (08:46→15:21)
[2022-03-11] MEDS: ROSUVASTATIN CALCIUM 20 MG TABLET PO (08:47)
[2022-03-11] MEDS: TRAMADOL HCL 50 MG TABLET PO ×3 (08:48→20:45)
[2022-03-11] MEDS: INSULIN GLARGINE,HUM.REC.ANLOG 100 UNIT/ML INSULN.PEN 22 UNIT SUBCUT (08:57)
[2022-03-11] MEDS: guaiFENesin 100 MG/ML CUP PO (19:31)
[2022-03-11 21:07] VITALS: TEMP 36.4; O2SAT 96
[2022-03-12] MEDS: BUSPIRONE 10 MG TABLET PO ×2 (07:08→15:33)
[2022-03-12] MEDS: AMLODIPINE 10 MG TABLET PO (07:08)
[2022-03-12] MEDS: ASPIRIN EC 325 MG TABLET PO (07:08)
[2022-03-12] MEDS: METOPROLOL TARTRATE 50 MG TABLET PO ×2 (07:09→15:33)
[2022-03-12] MEDS: PRESERVISION AREDS 1 EACH PO ×2 (07:09→15:33)
[2022-03-12] MEDS: FLUOXETINE HCL 40 MG CAPSULE PO (07:09)
[2022-03-12] MEDS: FUROSEMIDE 40 MG TABLET 20 MG PO (07:10)
[2022-03-12] MEDS: lisinopriL 40 MG TABLET PO (07:10)
[2022-03-12] MEDS: FLUOXETINE HCL 20 MG CAPSULE PO (07:10)
[2022-03-12] MEDS: POTASSIUM CHLORIDE 20 MEQ TAB.ER.PRT 40 MEQ PO ×2 (07:11→15:33)
[2022-03-12] MEDS: ROSUVASTATIN CALCIUM 20 MG TABLET PO (07:11)
[2022-03-12] MEDS: TRAMADOL HCL 50 MG TABLET PO ×3 (07:13→20:28)
[2022-03-12] MEDS: INSULIN GLARGINE,HUM.REC.ANLOG 100 UNIT/ML INSULN.PEN 22 UNIT SUBCUT (07:14)
[2022-03-12 21:33] VITALS: TEMP 36.4; O2SAT 96
[2022-03-13] MEDS: FLUOXETINE HCL 20 MG CAPSULE PO (07:44)
[2022-03-13] MEDS: ASPIRIN EC 325 MG TABLET PO (07:44)
[2022-03-13] MEDS: BUSPIRONE 10 MG TABLET PO ×2 (07:44→15:49)
[2022-03-13] MEDS: AMLODIPINE 10 MG TABLET PO (07:44)
[2022-03-13] MEDS: FLUOXETINE HCL 40 MG CAPSULE PO (07:44)
[2022-03-13] MEDS: FUROSEMIDE 40 MG TABLET 20 MG PO (07:45)
[2022-03-13] MEDS: PRESERVISION AREDS 1 EACH PO ×2 (07:45→15:49)
[2022-03-13] MEDS: lisinopriL 40 MG TABLET PO (07:45)
[2022-03-13] MEDS: METOPROLOL TARTRATE 50 MG TABLET PO ×2 (07:45→15:49)
[2022-03-13] MEDS: POTASSIUM CHLORIDE 20 MEQ TAB.ER.PRT 40 MEQ PO ×2 (07:46→15:52)
[2022-03-13] MEDS: TRAMADOL HCL 50 MG TABLET PO ×3 (07:47→20:03)
[2022-03-13] MEDS: ROSUVASTATIN CALCIUM 20 MG TABLET PO (07:47)
[2022-03-13] MEDS: INSULIN GLARGINE,HUM.REC.ANLOG 100 UNIT/ML INSULN.PEN 22 UNIT SUBCUT (07:55)
[2022-03-13 16:46] VITALS: TEMP 36.4; O2SAT 95
--- NOTE | 2022-03-13 22:33 | PC.NURSE ---
Cath irrigation: urine output was only 200mls, noted some leaking M/A on her brief. Cath irrigation done at 2044 IN 50mls and OUT 40mls clear fluid.
[2022-03-14] MEDS: AMLODIPINE 10 MG TABLET PO (07:05)
[2022-03-14] MEDS: FLUOXETINE HCL 20 MG CAPSULE PO (07:06)
[2022-03-14] MEDS: METOPROLOL TARTRATE 50 MG TABLET PO ×2 (07:06→15:49)
[2022-03-14] MEDS: FUROSEMIDE 40 MG TABLET 20 MG PO (07:06)
[2022-03-14] MEDS: FLUOXETINE HCL 40 MG CAPSULE PO (07:06)
[2022-03-14] MEDS: ASPIRIN EC 325 MG TABLET PO (07:06)
[2022-03-14] MEDS: lisinopriL 40 MG TABLET PO (07:06)
[2022-03-14] MEDS: BUSPIRONE 10 MG TABLET PO ×2 (07:06→15:49)
[2022-03-14] MEDS: POTASSIUM CHLORIDE 20 MEQ TAB.ER.PRT 40 MEQ PO ×2 (07:07→15:52)
[2022-03-14] MEDS: PRESERVISION AREDS 1 EACH PO ×2 (07:07→15:50)
[2022-03-14] MEDS: ROSUVASTATIN CALCIUM 20 MG TABLET PO (07:07)
[2022-03-14] MEDS: TRAMADOL HCL 50 MG TABLET PO ×3 (07:10→19:30)
[2022-03-14] MEDS: INSULIN GLARGINE,HUM.REC.ANLOG 100 UNIT/ML INSULN.PEN 22 UNIT SUBCUT (07:11)
[2022-03-14 10:22] VITALS: BMI 30.8
[2022-03-14 16:00] VITALS: TEMP 36.8; O2SAT 95; BMI 30.8
[2022-03-15] MEDS: ASPIRIN EC 325 MG TABLET PO (08:10)
[2022-03-15] MEDS: INSULIN GLARGINE,HUM.REC.ANLOG 100 UNIT/ML INSULN.PEN 22 UNIT SUBCUT (08:10)
[2022-03-15] MEDS: AMLODIPINE 10 MG TABLET PO (08:10)
[2022-03-15] MEDS: FLUOXETINE HCL 40 MG CAPSULE PO (08:11)
[2022-03-15] MEDS: lisinopriL 40 MG TABLET PO (08:11)
[2022-03-15] MEDS: METOPROLOL TARTRATE 50 MG TABLET PO ×2 (08:11→15:24)
[2022-03-15] MEDS: FUROSEMIDE 40 MG TABLET 20 MG PO (08:11)
[2022-03-15] MEDS: FLUOXETINE HCL 20 MG CAPSULE PO (08:11)
[2022-03-15] MEDS: BUSPIRONE 10 MG TABLET PO ×2 (08:11→15:24)
[2022-03-15] MEDS: POTASSIUM CHLORIDE 20 MEQ TAB.ER.PRT 40 MEQ PO ×2 (08:12→15:24)
[2022-03-15] MEDS: TRAMADOL HCL 50 MG TABLET PO ×3 (08:12→19:55)
[2022-03-15] MEDS: ROSUVASTATIN CALCIUM 20 MG TABLET PO (08:12)
[2022-03-15] MEDS: PRESERVISION AREDS 1 EACH PO ×2 (08:12→15:24)
[2022-03-15 16:00] VITALS: TEMP 36.8; O2SAT 96
--- NOTE | 2022-03-16 01:22 | PC.NURSE ---
Week #2: Care plan problems - and temporary care plan reviewed. No changes made. Nothing added to temporary care plan. Resident needs extensive assist of one with transfers using the medi stand. Uses a wheelchair and is able to propel self in the unit. Staff assist as needed. Is able to reposition self in bed or chair.. Staff to remind to offload every 2 hours. 1-2 assist to move up in bed. 2 side rails up to aid with positioning. No alarms. VS reviewed. Fall: No falls this past month. Is a low fall risk according to assessment done on 09/01/21.
[2022-03-16] MEDS: AMLODIPINE 10 MG TABLET PO (07:21)
[2022-03-16] MEDS: ASPIRIN EC 325 MG TABLET PO (07:21)
--- NOTE | 2022-03-16 07:21 | PC.NURSE ---
Week #2: Care plan problems - and temporary care plan reviewed. No changes made. Nothing added to temporary care plan. Resident is non ambulatory. Needs one assist & medi stand for all transfers. Staff propel to all destinations in w/c. One assist getting in/out of bed, once in bed is able to reposition self. Top side rails up to aid for positioning. No alarms. Fall: No falls this past month. Is a high fall risk according to assessment done on 02/23/22.
[2022-03-16] MEDS: FUROSEMIDE 40 MG TABLET 20 MG PO (07:22)
[2022-03-16] MEDS: FLUOXETINE HCL 40 MG CAPSULE PO (07:22)
[2022-03-16] MEDS: FLUOXETINE HCL 20 MG CAPSULE PO (07:22)
[2022-03-16] MEDS: BUSPIRONE 10 MG TABLET PO ×2 (07:22→15:36)
[2022-03-16] MEDS: METOPROLOL TARTRATE 50 MG TABLET PO ×2 (07:23→15:36)
[2022-03-16] MEDS: POTASSIUM CHLORIDE 20 MEQ TAB.ER.PRT 40 MEQ PO ×2 (07:23→15:41)
[2022-03-16] MEDS: lisinopriL 40 MG TABLET PO (07:23)
[2022-03-16] MEDS: PRESERVISION AREDS 1 EACH PO ×2 (07:23→15:41)
[2022-03-16] MEDS: ROSUVASTATIN CALCIUM 20 MG TABLET PO (07:24)
[2022-03-16] MEDS: TRAMADOL HCL 50 MG TABLET PO ×3 (07:27→19:30)
[2022-03-16] MEDS: INSULIN GLARGINE,HUM.REC.ANLOG 100 UNIT/ML INSULN.PEN 22 UNIT SUBCUT (09:10)
[2022-03-16 10:31] VITALS: BP 127/69; PULSE 65; RESP 16; TEMP 36.1; O2SAT 97
[2022-03-16 16:00] VITALS: TEMP 36.9; O2SAT 97
[2022-03-17] MEDS: AMLODIPINE 10 MG TABLET PO (07:54)
[2022-03-17] MEDS: FLUOXETINE HCL 40 MG CAPSULE PO (07:55)
[2022-03-17] MEDS: ASPIRIN EC 325 MG TABLET PO (07:55)
[2022-03-17] MEDS: FLUOXETINE HCL 20 MG CAPSULE PO (07:55)
[2022-03-17] MEDS: FUROSEMIDE 40 MG TABLET 20 MG PO (07:55)
[2022-03-17] MEDS: BUSPIRONE 10 MG TABLET PO ×2 (07:55→15:54)
[2022-03-17] MEDS: METOPROLOL TARTRATE 50 MG TABLET PO ×2 (07:56→15:54)
[2022-03-17] MEDS: PRESERVISION AREDS 1 EACH PO ×2 (07:56→15:54)
[2022-03-17] MEDS: lisinopriL 40 MG TABLET PO (07:56)
[2022-03-17] MEDS: POTASSIUM CHLORIDE 20 MEQ TAB.ER.PRT 40 MEQ PO ×2 (07:57→15:54)
[2022-03-17] MEDS: TRAMADOL HCL 50 MG TABLET PO ×3 (07:57→19:39)
[2022-03-17] MEDS: ROSUVASTATIN CALCIUM 20 MG TABLET PO (07:57)
[2022-03-17] MEDS: INSULIN GLARGINE,HUM.REC.ANLOG 100 UNIT/ML INSULN.PEN 22 UNIT SUBCUT (08:09)
[2022-03-17 22:17] VITALS: TEMP 35.9; O2SAT 96
[2022-03-18] MEDS: AMLODIPINE 10 MG TABLET PO (07:54)
[2022-03-18] MEDS: ASPIRIN EC 325 MG TABLET PO (07:54)
[2022-03-18] MEDS: FLUOXETINE HCL 40 MG CAPSULE PO (07:54)
[2022-03-18] MEDS: INSULIN GLARGINE,HUM.REC.ANLOG 100 UNIT/ML INSULN.PEN 22 UNIT SUBCUT (07:54)
[2022-03-18] MEDS: BUSPIRONE 10 MG TABLET PO ×2 (07:54→15:33)
[2022-03-18] MEDS: ROSUVASTATIN CALCIUM 20 MG TABLET PO (07:55)
[2022-03-18] MEDS: PRESERVISION AREDS 1 EACH PO ×2 (07:55→15:33)
[2022-03-18] MEDS: FUROSEMIDE 40 MG TABLET 20 MG PO (07:55)
[2022-03-18] MEDS: METOPROLOL TARTRATE 50 MG TABLET PO ×2 (07:55→15:33)
[2022-03-18] MEDS: lisinopriL 40 MG TABLET PO (07:55)
[2022-03-18] MEDS: FLUOXETINE HCL 20 MG CAPSULE PO (07:55)
[2022-03-18] MEDS: TRAMADOL HCL 50 MG TABLET PO ×3 (07:55→20:34)
[2022-03-18] MEDS: POTASSIUM CHLORIDE 20 MEQ TAB.ER.PRT 40 MEQ PO ×2 (07:55→15:33)
[2022-03-18 16:00] VITALS: TEMP 35.9; O2SAT 96
[2022-03-19] MEDS: lisinopriL 40 MG TABLET PO (07:43)
[2022-03-19] MEDS: FUROSEMIDE 40 MG TABLET 20 MG PO (07:43)
[2022-03-19] MEDS: METOPROLOL TARTRATE 50 MG TABLET PO ×2 (07:43→15:09)
[2022-03-19] MEDS: FLUOXETINE HCL 20 MG CAPSULE PO (07:43)
[2022-03-19] MEDS: ROSUVASTATIN CALCIUM 20 MG TABLET PO (07:43)
[2022-03-19] MEDS: AMLODIPINE 10 MG TABLET PO (07:43)
[2022-03-19] MEDS: ASPIRIN EC 325 MG TABLET PO (07:43)
[2022-03-19] MEDS: BUSPIRONE 10 MG TABLET PO ×2 (07:43→15:09)
[2022-03-19] MEDS: POTASSIUM CHLORIDE 20 MEQ TAB.ER.PRT 40 MEQ PO ×2 (07:43→15:10)
[2022-03-19] MEDS: FLUOXETINE HCL 40 MG CAPSULE PO (07:43)
[2022-03-19] MEDS: PRESERVISION AREDS 1 EACH PO ×2 (07:43→15:09)
[2022-03-19] MEDS: TRAMADOL HCL 50 MG TABLET PO ×3 (07:44→20:26)
[2022-03-19] MEDS: INSULIN GLARGINE,HUM.REC.ANLOG 100 UNIT/ML INSULN.PEN 22 UNIT SUBCUT (07:51)
[2022-03-19 16:26] VITALS: TEMP 36.1; O2SAT 95
[2022-03-20] MEDS: BUSPIRONE 10 MG TABLET PO ×2 (07:46→16:24)
[2022-03-20] MEDS: FLUOXETINE HCL 40 MG CAPSULE PO (07:46)
[2022-03-20] MEDS: AMLODIPINE 10 MG TABLET PO (07:46)
[2022-03-20] MEDS: ASPIRIN EC 325 MG TABLET PO (07:46)
[2022-03-20] MEDS: FLUOXETINE HCL 20 MG CAPSULE PO (07:47)
[2022-03-20] MEDS: FUROSEMIDE 40 MG TABLET 20 MG PO (07:47)
[2022-03-20] MEDS: lisinopriL 40 MG TABLET PO (07:47)
[2022-03-20] MEDS: METOPROLOL TARTRATE 50 MG TABLET PO ×2 (07:47→16:24)
[2022-03-20] MEDS: PRESERVISION AREDS 1 EACH PO ×2 (07:48→16:25)
[2022-03-20] MEDS: POTASSIUM CHLORIDE 20 MEQ TAB.ER.PRT 40 MEQ PO ×2 (07:48→16:26)
[2022-03-20] MEDS: TRAMADOL HCL 50 MG TABLET PO ×3 (07:49→19:59)
[2022-03-20] MEDS: ROSUVASTATIN CALCIUM 20 MG TABLET PO (07:49)
[2022-03-20] MEDS: INSULIN GLARGINE,HUM.REC.ANLOG 100 UNIT/ML INSULN.PEN 22 UNIT SUBCUT (07:56)
--- NOTE | 2022-03-20 13:03 | PC.NURSE ---
Status: Was noted that resident has edema to bilateral L/E. Resident has them elevated, will monitor.
[2022-03-20 22:17] VITALS: TEMP 36.9; O2SAT 95
[2022-03-21] MEDS: ASPIRIN EC 325 MG TABLET PO (07:53)
[2022-03-21] MEDS: AMLODIPINE 10 MG TABLET PO (07:53)
[2022-03-21] MEDS: PRESERVISION AREDS 1 EACH PO ×2 (07:54→16:40)
[2022-03-21] MEDS: ROSUVASTATIN CALCIUM 20 MG TABLET PO (07:54)
[2022-03-21] MEDS: FUROSEMIDE 40 MG TABLET 20 MG PO (07:54)
[2022-03-21] MEDS: lisinopriL 40 MG TABLET PO (07:54)
[2022-03-21] MEDS: POTASSIUM CHLORIDE 20 MEQ TAB.ER.PRT 40 MEQ PO ×2 (07:54→16:40)
[2022-03-21] MEDS: TRAMADOL HCL 50 MG TABLET PO ×3 (07:54→19:31)
[2022-03-21] MEDS: BUSPIRONE 10 MG TABLET PO ×2 (07:54→16:40)
[2022-03-21] MEDS: METOPROLOL TARTRATE 50 MG TABLET PO ×2 (07:54→16:40)
[2022-03-21] MEDS: FLUOXETINE HCL 40 MG CAPSULE PO (07:54)
[2022-03-21] MEDS: FLUOXETINE HCL 20 MG CAPSULE PO (07:54)
[2022-03-21] MEDS: INSULIN GLARGINE,HUM.REC.ANLOG 100 UNIT/ML INSULN.PEN 22 UNIT SUBCUT (08:48)
[2022-03-21 16:00] VITALS: TEMP 36.3; O2SAT 96
[2022-03-21 16:30] VITALS: BMI 32.8
[2022-03-22 02:02] VITALS: TEMP 36.3; O2SAT 96
[2022-03-22] MEDS: AMLODIPINE 10 MG TABLET PO (08:33)
[2022-03-22] MEDS: INSULIN GLARGINE,HUM.REC.ANLOG 100 UNIT/ML INSULN.PEN 22 UNIT SUBCUT (08:34)
[2022-03-22] MEDS: ASPIRIN EC 325 MG TABLET PO (08:34)
[2022-03-22] MEDS: FUROSEMIDE 40 MG TABLET 20 MG PO (08:38)
[2022-03-22] MEDS: FLUOXETINE HCL 20 MG CAPSULE PO (08:38)
[2022-03-22] MEDS: FLUOXETINE HCL 40 MG CAPSULE PO (08:38)
[2022-03-22] MEDS: METOPROLOL TARTRATE 50 MG TABLET PO ×2 (08:38→15:22)
[2022-03-22] MEDS: lisinopriL 40 MG TABLET PO (08:38)
[2022-03-22] MEDS: PRESERVISION AREDS 1 EACH PO ×2 (08:38→15:22)
[2022-03-22] MEDS: BUSPIRONE 10 MG TABLET PO ×2 (08:38→15:22)
[2022-03-22] MEDS: ROSUVASTATIN CALCIUM 20 MG TABLET PO (08:39)
[2022-03-22] MEDS: TRAMADOL HCL 50 MG TABLET PO ×3 (08:39→20:23)
[2022-03-22] MEDS: POTASSIUM CHLORIDE 20 MEQ TAB.ER.PRT 40 MEQ PO ×2 (08:39→15:22)
[2022-03-22] MEDS: NYSTATIN POWDER 1 APPLIC TOPICAL (13:10)
[2022-03-22 14:05] VITALS: TEMP 36.1; O2SAT 97
--- NOTE | 2022-03-22 14:07 | PC.PHA ---
Pharmacy Review ~ Patient continues on poly pharmacy with no issues but additions to regimen should be scrutinized for increased risk of drug drug interactions. Bactrim DS started in late January for 3 day regimen for uti and then therapy extended to 10 dose regimen for possible aspiration pneumonia. Pregabalin and tramadol continue for neuro pain in addition to daily fluoxetine 60 mg.
[2022-03-22 15:00] VITALS: TEMP 36.9; O2SAT 78
[2022-03-23 03:29] VITALS: TEMP 36.5; O2SAT 96
--- NOTE | 2022-03-23 05:27 | PC.NURSE ---
Week #3: Skin summary: Resident has a suprapubic cath. 4x4s are changed daily. Temporary care plan reviewed, no change. Care plan 30-39 reviewed, no change. Bathroom: Resident has a suprapubic cath, is typically continent of bowel. Is changed in bed on NOC if needed.
[2022-03-23] MEDS: BUSPIRONE 10 MG TABLET PO ×2 (07:35→16:42)
[2022-03-23] MEDS: AMLODIPINE 10 MG TABLET PO (07:35)
[2022-03-23] MEDS: ASPIRIN EC 325 MG TABLET PO (07:35)
[2022-03-23] MEDS: FLUOXETINE HCL 20 MG CAPSULE PO (07:36)
[2022-03-23] MEDS: FLUOXETINE HCL 40 MG CAPSULE PO (07:36)
[2022-03-23] MEDS: PRESERVISION AREDS 1 EACH PO ×2 (07:36→16:42)
[2022-03-23] MEDS: lisinopriL 40 MG TABLET PO (07:36)
[2022-03-23] MEDS: FUROSEMIDE 40 MG TABLET 20 MG PO (07:36)
[2022-03-23] MEDS: METOPROLOL TARTRATE 50 MG TABLET PO ×2 (07:36→16:42)
[2022-03-23] MEDS: TRAMADOL HCL 50 MG TABLET PO ×3 (07:38→20:59)
[2022-03-23] MEDS: POTASSIUM CHLORIDE 20 MEQ TAB.ER.PRT 40 MEQ PO ×2 (07:38→16:42)
[2022-03-23] MEDS: ROSUVASTATIN CALCIUM 20 MG TABLET PO (07:38)
[2022-03-23] MEDS: INSULIN GLARGINE,HUM.REC.ANLOG 100 UNIT/ML INSULN.PEN 22 UNIT SUBCUT (07:50)
--- NOTE | 2022-03-23 09:20 | PC.NURSE ---
Week #3: Care plan problems 30-39 and temporary care plan reviewed. No changes made. Nothing added to temporary care plan. Has a suprapubic catheter, bag emptied q shift by staff. Catheter changed monthly by staff. She is mostly continent of bowels. Toilet for BM's with one assist using the medi stand for transfers. Wears pads. Pads, edward cares, clothing adjustment managed by staff. Skin: Red under (L) breast, groins, mid abdominal fold. Nystatin powder applied until healed after washing/drying. Suprapubic site cleansed daily and covered with 4x4. Skin is checked during cares & on bath day.
--- NOTE | 2022-03-23 09:39 | PC.NURSE ---
COVID OUTBREAK TESTING: Residents daughter provided verbal consent for outbreak COVID testing. Resident is currently asymptomatic. Resident/family will be notified only if resident is positive.
[2022-03-23 09:45] VITALS: TEMP 36.6; O2SAT 97
[2022-03-23 12:13] LABS: SARS PCR* Negative SARS-CoV-2 (Negative)
[2022-03-23 12:49] VITALS: BP 160/62; PULSE 65; RESP 16; TEMP 36; O2SAT 97
[2022-03-23 15:00] VITALS: TEMP 36; O2SAT 97
[2022-03-24 04:07] VITALS: TEMP 36.5; O2SAT 93
[2022-03-24] MEDS: AMLODIPINE 10 MG TABLET PO (07:27)
[2022-03-24] MEDS: ASPIRIN EC 325 MG TABLET PO (07:27)
[2022-03-24] MEDS: BUSPIRONE 10 MG TABLET PO ×2 (07:27→16:16)
[2022-03-24] MEDS: FUROSEMIDE 40 MG TABLET 20 MG PO (07:27)
[2022-03-24] MEDS: FLUOXETINE HCL 40 MG CAPSULE PO (07:27)
[2022-03-24] MEDS: FLUOXETINE HCL 20 MG CAPSULE PO (07:27)
[2022-03-24] MEDS: PRESERVISION AREDS 1 EACH PO ×2 (07:28→16:16)
[2022-03-24] MEDS: METOPROLOL TARTRATE 50 MG TABLET PO ×2 (07:28→16:16)
[2022-03-24] MEDS: lisinopriL 40 MG TABLET PO (07:28)
[2022-03-24] MEDS: POTASSIUM CHLORIDE 20 MEQ TAB.ER.PRT 40 MEQ PO ×2 (07:29→16:15)
[2022-03-24] MEDS: ROSUVASTATIN CALCIUM 20 MG TABLET PO (07:29)
[2022-03-24] MEDS: TRAMADOL HCL 50 MG TABLET PO ×3 (07:30→19:34)
[2022-03-24] MEDS: INSULIN GLARGINE,HUM.REC.ANLOG 100 UNIT/ML INSULN.PEN 22 UNIT SUBCUT (08:29)
[2022-03-24 10:47] VITALS: TEMP 36.2; O2SAT 97
--- NOTE | 2022-03-24 10:59 | PC.NURSE ---
Suprapubic catheter was changed on 03/22. Did not irrigate today as it is patent and was just changed. Notified charge nurse and she is agreeable with this plan.
[2022-03-24 15:00] VITALS: TEMP 37; O2SAT 96
[2022-03-25 00:43] VITALS: TEMP 36.3; O2SAT 95
[2022-03-25] MEDS: NYSTATIN POWDER 1 APPLIC TOPICAL (06:53)
[2022-03-25] MEDS: ASPIRIN EC 325 MG TABLET PO (07:59)
[2022-03-25] MEDS: AMLODIPINE 10 MG TABLET PO (07:59)
[2022-03-25] MEDS: INSULIN GLARGINE,HUM.REC.ANLOG 100 UNIT/ML INSULN.PEN 22 UNIT SUBCUT (07:59)
[2022-03-25] MEDS: PRESERVISION AREDS 1 EACH PO ×2 (08:00→15:59)
[2022-03-25] MEDS: FUROSEMIDE 40 MG TABLET 20 MG PO (08:00)
[2022-03-25] MEDS: lisinopriL 40 MG TABLET PO (08:00)
[2022-03-25] MEDS: TRAMADOL HCL 50 MG TABLET PO ×3 (08:00→19:39)
[2022-03-25] MEDS: POTASSIUM CHLORIDE 20 MEQ TAB.ER.PRT 40 MEQ PO ×2 (08:00→15:59)
[2022-03-25] MEDS: METOPROLOL TARTRATE 50 MG TABLET PO ×2 (08:00→15:58)
[2022-03-25] MEDS: FLUOXETINE HCL 20 MG CAPSULE PO (08:00)
[2022-03-25] MEDS: FLUOXETINE HCL 40 MG CAPSULE PO (08:00)
[2022-03-25] MEDS: ROSUVASTATIN CALCIUM 20 MG TABLET PO (08:00)
[2022-03-25] MEDS: BUSPIRONE 10 MG TABLET PO ×2 (08:00→15:58)
[2022-03-25 10:05] VITALS: TEMP 36.2; O2SAT 95
[2022-03-25 15:00] VITALS: TEMP 36.5; O2SAT 98
[2022-03-26 02:06] VITALS: TEMP 36.2; O2SAT 95
[2022-03-26] MEDS: AMLODIPINE 10 MG TABLET PO (07:14)
[2022-03-26] MEDS: ASPIRIN EC 325 MG TABLET PO (07:14)
[2022-03-26] MEDS: INSULIN GLARGINE,HUM.REC.ANLOG 100 UNIT/ML INSULN.PEN 22 UNIT SUBCUT (07:14)
[2022-03-26] MEDS: BUSPIRONE 10 MG TABLET PO ×2 (07:15→15:20)
[2022-03-26] MEDS: FUROSEMIDE 40 MG TABLET 20 MG PO (07:16)
[2022-03-26] MEDS: METOPROLOL TARTRATE 50 MG TABLET PO ×2 (07:16→15:21)
[2022-03-26] MEDS: lisinopriL 40 MG TABLET PO (07:16)
[2022-03-26] MEDS: PRESERVISION AREDS 1 EACH PO ×2 (07:16→15:21)
[2022-03-26] MEDS: POTASSIUM CHLORIDE 20 MEQ TAB.ER.PRT 40 MEQ PO ×2 (07:17→15:22)
[2022-03-26] MEDS: TRAMADOL HCL 50 MG TABLET PO ×3 (07:17→20:06)
[2022-03-26] MEDS: FLUOXETINE HCL 40 MG CAPSULE PO (07:17)
[2022-03-26] MEDS: FLUOXETINE HCL 20 MG CAPSULE PO (07:17)
[2022-03-26] MEDS: ROSUVASTATIN CALCIUM 20 MG TABLET PO (07:17)
[2022-03-26 10:12] VITALS: TEMP 36.3; O2SAT 98
[2022-03-26 21:27] VITALS: TEMP 36.6; O2SAT 96
[2022-03-26 23:00] VITALS: TEMP 36.6; O2SAT 96
[2022-03-27] MEDS: ASPIRIN EC 325 MG TABLET PO (07:40)
[2022-03-27] MEDS: INSULIN GLARGINE,HUM.REC.ANLOG 100 UNIT/ML INSULN.PEN 22 UNIT SUBCUT (07:40)
[2022-03-27] MEDS: AMLODIPINE 10 MG TABLET PO (07:40)
[2022-03-27] MEDS: METOPROLOL TARTRATE 50 MG TABLET PO ×2 (07:41→15:50)
[2022-03-27] MEDS: lisinopriL 40 MG TABLET PO (07:41)
[2022-03-27] MEDS: FLUOXETINE HCL 40 MG CAPSULE PO (07:41)
[2022-03-27] MEDS: FLUOXETINE HCL 20 MG CAPSULE PO (07:41)
[2022-03-27] MEDS: PRESERVISION AREDS 1 EACH PO ×2 (07:41→15:52)
[2022-03-27] MEDS: BUSPIRONE 10 MG TABLET PO ×2 (07:41→15:50)
[2022-03-27] MEDS: FUROSEMIDE 40 MG TABLET 20 MG PO (07:41)
[2022-03-27] MEDS: POTASSIUM CHLORIDE 20 MEQ TAB.ER.PRT 40 MEQ PO ×2 (07:42→15:53)
[2022-03-27] MEDS: TRAMADOL HCL 50 MG TABLET PO ×3 (07:42→19:57)
[2022-03-27] MEDS: ROSUVASTATIN CALCIUM 20 MG TABLET PO (07:42)
[2022-03-27 10:16] VITALS: TEMP 36.3; O2SAT 97
--- NOTE | 2022-03-27 10:32 | PC.NURSE ---
COVID OUTBREAK TESTING: Residents daughter provided verbal consent for outbreak COVID testing. Resident is currently asymptomatic. Resident/family will be notified only if resident is positive.
[2022-03-27 12:35] LABS: SARS PCR* Negative SARS-CoV-2 (Negative)
[2022-03-27 21:50] VITALS: TEMP 37; O2SAT 94
[2022-03-28 04:04] VITALS: TEMP 36.4; O2SAT 94
[2022-03-28] MEDS: ASPIRIN EC 325 MG TABLET PO (08:17)
[2022-03-28] MEDS: AMLODIPINE 10 MG TABLET PO (08:17)
[2022-03-28] MEDS: lisinopriL 40 MG TABLET PO (08:18)
[2022-03-28] MEDS: METOPROLOL TARTRATE 50 MG TABLET PO ×2 (08:18→15:54)
[2022-03-28] MEDS: BUSPIRONE 10 MG TABLET PO ×2 (08:18→15:54)
[2022-03-28] MEDS: FLUOXETINE HCL 40 MG CAPSULE PO (08:18)
[2022-03-28] MEDS: FLUOXETINE HCL 20 MG CAPSULE PO (08:18)
[2022-03-28] MEDS: FUROSEMIDE 40 MG TABLET 20 MG PO (08:18)
[2022-03-28] MEDS: PRESERVISION AREDS 1 EACH PO ×2 (08:22→15:54)
[2022-03-28] MEDS: POTASSIUM CHLORIDE 20 MEQ TAB.ER.PRT 40 MEQ PO ×2 (08:23→15:54)
[2022-03-28] MEDS: ROSUVASTATIN CALCIUM 20 MG TABLET PO (08:23)
[2022-03-28] MEDS: TRAMADOL HCL 50 MG TABLET PO ×3 (08:24→19:45)
[2022-03-28] MEDS: INSULIN GLARGINE,HUM.REC.ANLOG 100 UNIT/ML INSULN.PEN 22 UNIT SUBCUT (08:37)
[2022-03-28 13:44] VITALS: TEMP 36.1; O2SAT 97
[2022-03-28 15:12] VITALS: TEMP 36.6; O2SAT 96
[2022-03-28 16:54] VITALS: BMI 34.2
[2022-03-29 03:48] VITALS: TEMP 36.4; O2SAT 95
[2022-03-29] MEDS: ASPIRIN EC 325 MG TABLET PO (07:11)
[2022-03-29] MEDS: BUSPIRONE 10 MG TABLET PO ×2 (07:11→15:18)
[2022-03-29] MEDS: FUROSEMIDE 40 MG TABLET 20 MG PO (07:11)
[2022-03-29] MEDS: AMLODIPINE 10 MG TABLET PO (07:11)
[2022-03-29] MEDS: INSULIN GLARGINE,HUM.REC.ANLOG 100 UNIT/ML INSULN.PEN 22 UNIT SUBCUT (07:11)
[2022-03-29] MEDS: FLUOXETINE HCL 20 MG CAPSULE PO (07:11)
[2022-03-29] MEDS: FLUOXETINE HCL 40 MG CAPSULE PO (07:11)
[2022-03-29] MEDS: lisinopriL 40 MG TABLET PO (07:11)
[2022-03-29] MEDS: ROSUVASTATIN CALCIUM 20 MG TABLET PO (07:12)
[2022-03-29] MEDS: METOPROLOL TARTRATE 50 MG TABLET PO ×2 (07:12→15:18)
[2022-03-29] MEDS: POTASSIUM CHLORIDE 20 MEQ TAB.ER.PRT 40 MEQ PO ×2 (07:12→15:21)
[2022-03-29] MEDS: TRAMADOL HCL 50 MG TABLET PO ×3 (07:12→20:12)
[2022-03-29] MEDS: PRESERVISION AREDS 1 EACH PO ×2 (07:12→15:21)
[2022-03-29 10:24] VITALS: TEMP 36.2; O2SAT 98
[2022-03-29 15:00] VITALS: TEMP 35.9; O2SAT 96
--- NOTE | 2022-03-30 02:05 | PC.NURSE ---
Week #4: No change in mood/behavior, resident continues to ask that we do not bother her on NOC. Is on BuSpar 10mg PO BID and, Fluoxetine 60mg PO Daily. Temporary care plan reviewed, no change. Care plan 40-119 reviewed, no change. Resident is able to communicate needs/preferences. No change in chronic health condition or meds, is not able to self admin meds.
[2022-03-30 03:42] VITALS: TEMP 36.3; O2SAT 97
[2022-03-30] MEDS: BUSPIRONE 10 MG TABLET PO ×2 (07:21→15:53)
[2022-03-30] MEDS: ASPIRIN EC 325 MG TABLET PO (07:21)
[2022-03-30] MEDS: INSULIN GLARGINE,HUM.REC.ANLOG 100 UNIT/ML INSULN.PEN 22 UNIT SUBCUT (07:21)
[2022-03-30] MEDS: AMLODIPINE 10 MG TABLET PO (07:21)
[2022-03-30] MEDS: lisinopriL 40 MG TABLET PO (07:22)
[2022-03-30] MEDS: METOPROLOL TARTRATE 50 MG TABLET PO ×2 (07:22→15:53)
[2022-03-30] MEDS: FUROSEMIDE 40 MG TABLET 20 MG PO (07:22)
[2022-03-30] MEDS: FLUOXETINE HCL 40 MG CAPSULE PO (07:22)
[2022-03-30] MEDS: FLUOXETINE HCL 20 MG CAPSULE PO (07:22)
[2022-03-30] MEDS: PRESERVISION AREDS 1 EACH PO ×2 (07:23→15:54)
[2022-03-30] MEDS: ROSUVASTATIN CALCIUM 20 MG TABLET PO (07:23)
[2022-03-30] MEDS: POTASSIUM CHLORIDE 20 MEQ TAB.ER.PRT 40 MEQ PO ×2 (07:23→15:54)
[2022-03-30] MEDS: TRAMADOL HCL 50 MG TABLET PO ×3 (07:24→19:49)
--- NOTE | 2022-03-30 10:40 | PC.NURSE ---
Week #4:Care plan 40-119 and Temporary care plan reviewed, no change. Mood/Behavior : No changes in mood and behavior. Resident is quiet and spend most of her time in her room including having her meals. She is on BuSpar 10mg PO BID and, Fluoxetine 60mg PO daily and no changes in her chronic health condition. She is able to communicate her needs however not able to self admin her medication
[2022-03-30 13:03] VITALS: TEMP 35.8; O2SAT 97
[2022-03-30 13:04] VITALS: BP 160/86; PULSE 68; RESP 20; TEMP 36.2; O2SAT 98
[2022-03-30 15:00] VITALS: TEMP 36.4; O2SAT 97
[2022-03-30 23:00] VITALS: TEMP 36.5; O2SAT 95
[2022-03-31] MEDS: AMLODIPINE 10 MG TABLET PO (07:46)
[2022-03-31] MEDS: ASPIRIN EC 325 MG TABLET PO (07:46)
[2022-03-31] MEDS: lisinopriL 40 MG TABLET PO (07:47)
[2022-03-31] MEDS: PRESERVISION AREDS 1 EACH PO ×2 (07:47→15:33)
[2022-03-31] MEDS: METOPROLOL TARTRATE 50 MG TABLET PO ×2 (07:47→15:33)
[2022-03-31] MEDS: FLUOXETINE HCL 20 MG CAPSULE PO (07:47)
[2022-03-31] MEDS: FLUOXETINE HCL 40 MG CAPSULE PO (07:47)
[2022-03-31] MEDS: BUSPIRONE 10 MG TABLET PO ×2 (07:47→15:33)
[2022-03-31] MEDS: INSULIN GLARGINE,HUM.REC.ANLOG 100 UNIT/ML INSULN.PEN 22 UNIT SUBCUT (07:47)
[2022-03-31] MEDS: FUROSEMIDE 40 MG TABLET 20 MG PO (07:47)
[2022-03-31] MEDS: TRAMADOL HCL 50 MG TABLET PO ×3 (07:48→19:39)
[2022-03-31] MEDS: ROSUVASTATIN CALCIUM 20 MG TABLET PO (07:48)
[2022-03-31] MEDS: POTASSIUM CHLORIDE 20 MEQ TAB.ER.PRT 40 MEQ PO ×2 (07:48→15:33)
[2022-03-31 11:10] VITALS: TEMP 36; O2SAT 98
[2022-03-31 21:15] VITALS: TEMP 35.7; O2SAT 97
[2022-04-01 04:01] VITALS: TEMP 36.5; O2SAT 96
[2022-04-01] MEDS: INSULIN GLARGINE,HUM.REC.ANLOG 100 UNIT/ML INSULN.PEN 22 UNIT SUBCUT (07:53)
[2022-04-01] MEDS: ASPIRIN EC 325 MG TABLET PO (07:53)
[2022-04-01] MEDS: AMLODIPINE 10 MG TABLET PO (07:53)
[2022-04-01] MEDS: FLUOXETINE HCL 40 MG CAPSULE PO (07:54)
[2022-04-01] MEDS: POTASSIUM CHLORIDE 20 MEQ TAB.ER.PRT 40 MEQ PO ×2 (07:54→15:22)
[2022-04-01] MEDS: PRESERVISION AREDS 1 EACH PO ×2 (07:54→15:22)
[2022-04-01] MEDS: METOPROLOL TARTRATE 50 MG TABLET PO ×2 (07:54→15:22)
[2022-04-01] MEDS: ROSUVASTATIN CALCIUM 20 MG TABLET PO (07:54)
[2022-04-01] MEDS: BUSPIRONE 10 MG TABLET PO ×2 (07:54→15:22)
[2022-04-01] MEDS: FLUOXETINE HCL 20 MG CAPSULE PO (07:54)
[2022-04-01] MEDS: TRAMADOL HCL 50 MG TABLET PO ×3 (07:54→19:51)
[2022-04-01] MEDS: FUROSEMIDE 40 MG TABLET 20 MG PO (07:54)
[2022-04-01] MEDS: lisinopriL 40 MG TABLET PO (07:54)
[2022-04-01 11:09] VITALS: TEMP 36.3; O2SAT 97
[2022-04-01 15:00] VITALS: TEMP 35.6; O2SAT 95
[2022-04-01 23:00] VITALS: TEMP 36.3; O2SAT 97
[2022-04-02 07:00] VITALS: TEMP 35.9; O2SAT 96
[2022-04-02] MEDS: AMLODIPINE 10 MG TABLET PO (07:50)
[2022-04-02] MEDS: INSULIN GLARGINE,HUM.REC.ANLOG 100 UNIT/ML INSULN.PEN 22 UNIT SUBCUT (07:50)
[2022-04-02] MEDS: ASPIRIN EC 325 MG TABLET PO (07:50)
[2022-04-02] MEDS: FLUOXETINE HCL 20 MG CAPSULE PO (07:51)
[2022-04-02] MEDS: POTASSIUM CHLORIDE 20 MEQ TAB.ER.PRT 40 MEQ PO ×2 (07:51→15:09)
[2022-04-02] MEDS: ROSUVASTATIN CALCIUM 20 MG TABLET PO (07:51)
[2022-04-02] MEDS: METOPROLOL TARTRATE 50 MG TABLET PO ×2 (07:51→15:09)
[2022-04-02] MEDS: BUSPIRONE 10 MG TABLET PO ×2 (07:51→15:09)
[2022-04-02] MEDS: PRESERVISION AREDS 1 EACH PO ×2 (07:51→15:09)
[2022-04-02] MEDS: FUROSEMIDE 40 MG TABLET 20 MG PO (07:51)
[2022-04-02] MEDS: lisinopriL 40 MG TABLET PO (07:51)
[2022-04-02] MEDS: FLUOXETINE HCL 40 MG CAPSULE PO (07:51)
[2022-04-02] MEDS: TRAMADOL HCL 50 MG TABLET PO ×3 (07:51→19:38)
[2022-04-02 15:00] VITALS: TEMP 36; O2SAT 95
[2022-04-03 02:58] VITALS: TEMP 36.4; O2SAT 93
[2022-04-03] MEDS: AMLODIPINE 10 MG TABLET PO (07:30)
[2022-04-03] MEDS: BUSPIRONE 10 MG TABLET PO ×2 (07:30→15:24)
[2022-04-03] MEDS: ASPIRIN EC 325 MG TABLET PO (07:30)
[2022-04-03] MEDS: FLUOXETINE HCL 40 MG CAPSULE PO (07:30)
[2022-04-03] MEDS: FLUOXETINE HCL 20 MG CAPSULE PO (07:31)
[2022-04-03] MEDS: PRESERVISION AREDS 1 EACH PO ×2 (07:31→15:24)
[2022-04-03] MEDS: lisinopriL 40 MG TABLET PO (07:31)
[2022-04-03] MEDS: FUROSEMIDE 40 MG TABLET 20 MG PO (07:31)
[2022-04-03] MEDS: METOPROLOL TARTRATE 50 MG TABLET PO ×2 (07:31→15:24)
[2022-04-03] MEDS: ROSUVASTATIN CALCIUM 20 MG TABLET PO (07:32)
[2022-04-03] MEDS: POTASSIUM CHLORIDE 20 MEQ TAB.ER.PRT 40 MEQ PO ×2 (07:32→15:24)
[2022-04-03] MEDS: TRAMADOL HCL 50 MG TABLET PO ×3 (07:32→19:32)
[2022-04-03] MEDS: INSULIN GLARGINE,HUM.REC.ANLOG 100 UNIT/ML INSULN.PEN 22 UNIT SUBCUT (07:45)
[2022-04-03 10:49] VITALS: TEMP 35.9; O2SAT 97
[2022-04-03 12:49] LABS: SARS PCR* Negative SARS-CoV-2 (Negative)
[2022-04-03 16:44] VITALS: TEMP 36.3; O2SAT 97
[2022-04-04 06:40] VITALS: TEMP 36.2; O2SAT 96
[2022-04-04] MEDS: ASPIRIN EC 325 MG TABLET PO (08:10)
[2022-04-04] MEDS: INSULIN GLARGINE,HUM.REC.ANLOG 100 UNIT/ML INSULN.PEN 22 UNIT SUBCUT (08:10)
[2022-04-04] MEDS: AMLODIPINE 10 MG TABLET PO (08:10)
[2022-04-04] MEDS: TRAMADOL HCL 50 MG TABLET PO ×3 (08:11→19:56)
[2022-04-04] MEDS: BUSPIRONE 10 MG TABLET PO ×2 (08:11→15:51)
[2022-04-04] MEDS: PRESERVISION AREDS 1 EACH PO ×2 (08:11→15:50)
[2022-04-04] MEDS: FUROSEMIDE 40 MG TABLET 20 MG PO (08:11)
[2022-04-04] MEDS: lisinopriL 40 MG TABLET PO (08:11)
[2022-04-04] MEDS: POTASSIUM CHLORIDE 20 MEQ TAB.ER.PRT 40 MEQ PO ×2 (08:11→16:03)
[2022-04-04] MEDS: FLUOXETINE HCL 20 MG CAPSULE PO (08:11)
[2022-04-04] MEDS: FLUOXETINE HCL 40 MG CAPSULE PO (08:11)
[2022-04-04] MEDS: METOPROLOL TARTRATE 50 MG TABLET PO ×2 (08:11→15:51)
[2022-04-04] MEDS: ROSUVASTATIN CALCIUM 20 MG TABLET PO (08:11)
[2022-04-04 10:44] VITALS: TEMP 36.3; O2SAT 96
[2022-04-04 15:00] VITALS: BP 130/71; PULSE 72; TEMP 36.6; O2SAT 96
[2022-04-04 16:00] VITALS: BMI 32.4
[2022-04-05 01:39] VITALS: TEMP 36.4; O2SAT 96
[2022-04-05] MEDS: AMLODIPINE 10 MG TABLET PO (08:18)
[2022-04-05] MEDS: ASPIRIN EC 325 MG TABLET PO (08:18)
[2022-04-05] MEDS: BUSPIRONE 10 MG TABLET PO ×2 (08:18→15:08)
[2022-04-05] MEDS: FLUOXETINE HCL 40 MG CAPSULE PO (08:18)
[2022-04-05] MEDS: FUROSEMIDE 40 MG TABLET 20 MG PO (08:19)
[2022-04-05] MEDS: METOPROLOL TARTRATE 50 MG TABLET PO ×2 (08:19→15:08)
[2022-04-05] MEDS: lisinopriL 40 MG TABLET PO (08:19)
[2022-04-05] MEDS: FLUOXETINE HCL 20 MG CAPSULE PO (08:19)
[2022-04-05] MEDS: POTASSIUM CHLORIDE 20 MEQ TAB.ER.PRT 40 MEQ PO ×2 (08:20→15:09)
[2022-04-05] MEDS: PRESERVISION AREDS 1 EACH PO ×2 (08:20→15:09)
[2022-04-05] MEDS: TRAMADOL HCL 50 MG TABLET PO ×3 (08:20→19:49)
[2022-04-05] MEDS: ROSUVASTATIN CALCIUM 20 MG TABLET PO (08:20)
[2022-04-05 11:52] VITALS: TEMP 37.2; O2SAT 95
[2022-04-05 15:00] VITALS: TEMP 36.3; O2SAT 97
--- NOTE | 2022-04-06 01:06 | PC.NURSE ---
Week #1: Resident has not complained of pain on NOC in the past month. Is on Ultram 50mg PO TID and, Q6H PRN. Temporary care plan reviewed, no change. Care plan -19 reviewed, no change. Resident is one assist with all ADLs and grooming. Has a covered mug at bed side as well as snacks in room.
[2022-04-06 03:40] VITALS: TEMP 36.6; O2SAT 95
[2022-04-06] MEDS: AMLODIPINE 10 MG TABLET PO (08:28)
[2022-04-06] MEDS: ASPIRIN EC 325 MG TABLET PO (08:28)
[2022-04-06] MEDS: INSULIN GLARGINE,HUM.REC.ANLOG 100 UNIT/ML INSULN.PEN 22 UNIT SUBCUT ×2 (08:28)
[2022-04-06] MEDS: FLUOXETINE HCL 40 MG CAPSULE PO (08:29)
[2022-04-06] MEDS: ROSUVASTATIN CALCIUM 20 MG TABLET PO (08:29)
[2022-04-06] MEDS: FLUOXETINE HCL 20 MG CAPSULE PO (08:29)
[2022-04-06] MEDS: FUROSEMIDE 40 MG TABLET 20 MG PO (08:29)
[2022-04-06] MEDS: POTASSIUM CHLORIDE 20 MEQ TAB.ER.PRT 40 MEQ PO ×2 (08:29→16:31)
[2022-04-06] MEDS: BUSPIRONE 10 MG TABLET PO ×2 (08:29→16:30)
[2022-04-06] MEDS: PRESERVISION AREDS 1 EACH PO ×2 (08:29→16:30)
[2022-04-06] MEDS: TRAMADOL HCL 50 MG TABLET PO ×3 (08:29→20:46)
[2022-04-06] MEDS: lisinopriL 40 MG TABLET PO (08:29)
[2022-04-06] MEDS: METOPROLOL TARTRATE 50 MG TABLET PO ×2 (08:29→16:30)
[2022-04-06 10:47] VITALS: TEMP 36.2; O2SAT 98
[2022-04-06 15:00] VITALS: TEMP 36.6; O2SAT 92
[2022-04-07 02:30] VITALS: TEMP 35.8; O2SAT 94
[2022-04-07] MEDS: ASPIRIN EC 325 MG TABLET PO (08:19)
[2022-04-07] MEDS: AMLODIPINE 10 MG TABLET PO (08:19)
[2022-04-07] MEDS: INSULIN GLARGINE,HUM.REC.ANLOG 100 UNIT/ML INSULN.PEN 22 UNIT SUBCUT (08:19)
[2022-04-07] MEDS: FLUOXETINE HCL 20 MG CAPSULE PO (08:21)
[2022-04-07] MEDS: FUROSEMIDE 40 MG TABLET 20 MG PO (08:21)
[2022-04-07] MEDS: BUSPIRONE 10 MG TABLET PO ×2 (08:21→16:38)
[2022-04-07] MEDS: FLUOXETINE HCL 40 MG CAPSULE PO (08:21)
[2022-04-07] MEDS: lisinopriL 40 MG TABLET PO (08:21)
[2022-04-07] MEDS: POTASSIUM CHLORIDE 20 MEQ TAB.ER.PRT 40 MEQ PO ×2 (08:21→16:38)
[2022-04-07] MEDS: PRESERVISION AREDS 1 EACH PO ×2 (08:21→16:38)
[2022-04-07] MEDS: METOPROLOL TARTRATE 50 MG TABLET PO ×2 (08:21→16:38)
[2022-04-07] MEDS: ROSUVASTATIN CALCIUM 20 MG TABLET PO (08:22)
[2022-04-07] MEDS: TRAMADOL HCL 50 MG TABLET PO ×3 (08:22→19:54)
[2022-04-07 10:34] VITALS: TEMP 36.5; O2SAT 98
[2022-04-07 15:00] VITALS: TEMP 36.9; O2SAT 96
[2022-04-08 02:39] VITALS: TEMP 36.4; O2SAT 95
[2022-04-08 07:00] VITALS: TEMP 36.5; O2SAT 97
[2022-04-08] MEDS: TRAMADOL HCL 50 MG TABLET PO ×3 (07:40→19:44)
[2022-04-08] MEDS: METOPROLOL TARTRATE 50 MG TABLET PO ×2 (07:40→15:43)
[2022-04-08] MEDS: ROSUVASTATIN CALCIUM 20 MG TABLET PO (07:40)
[2022-04-08] MEDS: POTASSIUM CHLORIDE 20 MEQ TAB.ER.PRT 40 MEQ PO ×2 (07:40→15:43)
[2022-04-08] MEDS: PRESERVISION AREDS 1 EACH PO ×2 (07:40→15:43)
[2022-04-08] MEDS: FUROSEMIDE 40 MG TABLET 20 MG PO (07:43)
[2022-04-08] MEDS: ASPIRIN EC 325 MG TABLET PO (07:43)
[2022-04-08] MEDS: FLUOXETINE HCL 20 MG CAPSULE PO (07:43)
[2022-04-08] MEDS: FLUOXETINE HCL 40 MG CAPSULE PO (07:43)
[2022-04-08] MEDS: BUSPIRONE 10 MG TABLET PO ×2 (07:43→15:43)
[2022-04-08] MEDS: AMLODIPINE 10 MG TABLET PO (07:43)
[2022-04-08] MEDS: lisinopriL 40 MG TABLET PO (07:43)
[2022-04-08] MEDS: INSULIN GLARGINE,HUM.REC.ANLOG 100 UNIT/ML INSULN.PEN 22 UNIT SUBCUT (08:21)
[2022-04-08 12:36] VITALS: TEMP 36.5; O2SAT 97
[2022-04-08 23:00] VITALS: TEMP 36.4; O2SAT 95
[2022-04-09 07:00] VITALS: TEMP 36.6; O2SAT 94
[2022-04-09] MEDS: lisinopriL 40 MG TABLET PO (08:00)
[2022-04-09] MEDS: FLUOXETINE HCL 20 MG CAPSULE PO (08:00)
[2022-04-09] MEDS: METOPROLOL TARTRATE 50 MG TABLET PO ×2 (08:00→15:59)
[2022-04-09] MEDS: BUSPIRONE 10 MG TABLET PO ×2 (08:00→15:59)
[2022-04-09] MEDS: FUROSEMIDE 40 MG TABLET 20 MG PO (08:00)
[2022-04-09] MEDS: ASPIRIN EC 325 MG TABLET PO (08:00)
[2022-04-09] MEDS: AMLODIPINE 10 MG TABLET PO (08:00)
[2022-04-09] MEDS: POTASSIUM CHLORIDE 20 MEQ TAB.ER.PRT 40 MEQ PO ×2 (08:01→16:19)
[2022-04-09] MEDS: ROSUVASTATIN CALCIUM 20 MG TABLET PO (08:01)
[2022-04-09] MEDS: PRESERVISION AREDS 1 EACH PO ×2 (08:01→15:59)
[2022-04-09] MEDS: TRAMADOL HCL 50 MG TABLET PO ×3 (08:01→20:01)
[2022-04-09] MEDS: INSULIN GLARGINE,HUM.REC.ANLOG 100 UNIT/ML INSULN.PEN 22 UNIT SUBCUT (08:16)
[2022-04-09] MEDS: FLUOXETINE HCL 40 MG CAPSULE PO (08:16)
[2022-04-09 13:45] VITALS: TEMP 36.6; O2SAT 94
--- NOTE | 2022-04-09 21:10 | PC.NURSE ---
Stoma site concern: Foul odor and moderate pink drainage observed at stoma site.
[2022-04-09 23:00] VITALS: TEMP 36.2; O2SAT 96
[2022-04-10] MEDS: ASPIRIN EC 325 MG TABLET PO (07:25)
[2022-04-10] MEDS: AMLODIPINE 10 MG TABLET PO (07:25)
[2022-04-10] MEDS: BUSPIRONE 10 MG TABLET PO ×2 (07:26→15:23)
[2022-04-10] MEDS: FLUOXETINE HCL 20 MG CAPSULE PO (07:26)
[2022-04-10] MEDS: FLUOXETINE HCL 40 MG CAPSULE PO (07:26)
[2022-04-10] MEDS: PRESERVISION AREDS 1 EACH PO ×2 (07:27→15:23)
[2022-04-10] MEDS: FUROSEMIDE 40 MG TABLET 20 MG PO (07:27)
[2022-04-10] MEDS: METOPROLOL TARTRATE 50 MG TABLET PO ×2 (07:27→15:23)
[2022-04-10] MEDS: lisinopriL 40 MG TABLET PO (07:27)
[2022-04-10] MEDS: POTASSIUM CHLORIDE 20 MEQ TAB.ER.PRT 40 MEQ PO ×2 (07:29→15:23)
[2022-04-10] MEDS: ROSUVASTATIN CALCIUM 20 MG TABLET PO (07:32)
[2022-04-10] MEDS: TRAMADOL HCL 50 MG TABLET PO ×3 (07:32→19:45)
[2022-04-10] MEDS: INSULIN GLARGINE,HUM.REC.ANLOG 100 UNIT/ML INSULN.PEN 22 UNIT SUBCUT (08:10)
[2022-04-10 12:26] LABS: SARS PCR* Negative SARS-CoV-2 (Negative)
[2022-04-10 13:30] VITALS: TEMP 36.2; O2SAT 97
--- NOTE | 2022-04-10 16:02 | PC.NURSE ---
COVID OUTBREAK TESTING: Residents daughter provided verbal consent for outbreak COVID testing. Resident is currently asymptomatic. Resident/family will be notified only if resident is positive.
[2022-04-10 16:55] VITALS: TEMP 36.4; O2SAT 96
[2022-04-11 02:38] VITALS: TEMP 35.9; O2SAT 94
[2022-04-11] MEDS: AMLODIPINE 10 MG TABLET PO (07:22)
[2022-04-11] MEDS: ASPIRIN EC 325 MG TABLET PO (07:22)
[2022-04-11] MEDS: lisinopriL 40 MG TABLET PO (07:23)
[2022-04-11] MEDS: FLUOXETINE HCL 40 MG CAPSULE PO (07:23)
[2022-04-11] MEDS: FLUOXETINE HCL 20 MG CAPSULE PO (07:23)
[2022-04-11] MEDS: METOPROLOL TARTRATE 50 MG TABLET PO ×2 (07:23→15:15)
[2022-04-11] MEDS: BUSPIRONE 10 MG TABLET PO ×2 (07:23→15:15)
[2022-04-11] MEDS: FUROSEMIDE 40 MG TABLET 20 MG PO (07:23)
[2022-04-11] MEDS: PRESERVISION AREDS 1 EACH PO ×2 (07:24→15:15)
[2022-04-11] MEDS: POTASSIUM CHLORIDE 20 MEQ TAB.ER.PRT 40 MEQ PO ×2 (07:24→15:15)
[2022-04-11] MEDS: ROSUVASTATIN CALCIUM 20 MG TABLET PO (07:26)
[2022-04-11] MEDS: TRAMADOL HCL 50 MG TABLET PO ×3 (07:26→20:16)
[2022-04-11] MEDS: INSULIN GLARGINE,HUM.REC.ANLOG 100 UNIT/ML INSULN.PEN 22 UNIT SUBCUT (08:06)
[2022-04-11 10:31] VITALS: TEMP 36.6; O2SAT 99
--- NOTE | 2022-04-11 12:16 | PC.NURSE ---
Recert Visit: Resident seen by Artemio FLAHERTY. Orders reviewed and renewed of 75 days with changes. Order: Diflucan 150mg once, D/C Hydrocortisone Cream BID PRN & Tramadol 50mg Q4H PRN.
--- NOTE | 2022-04-11 12:29 | PC.NURSE ---
Order: Per CONTENT STRATEGY LEAD Clean suprapubic catheter stoma with soapy water daily prior to apply gauze.
[2022-04-11 16:28] VITALS: TEMP 36.1; O2SAT 95
[2022-04-11 16:29] VITALS: BP 141/83; PULSE 60; RESP 20; TEMP 36.1; O2SAT 95; BMI 30.9
--- NOTE | 2022-04-11 20:51 | PC.NURSE ---
Bath Assessment: Overall skin is intact except both lower extremities are edematous 2++
[2022-04-11 23:00] VITALS: TEMP 36.4; O2SAT 93
[2022-04-12] MEDS: ASPIRIN EC 325 MG TABLET PO (07:41)
[2022-04-12] MEDS: AMLODIPINE 10 MG TABLET PO (07:41)
[2022-04-12] MEDS: BUSPIRONE 10 MG TABLET PO ×2 (07:41→15:21)
[2022-04-12] MEDS: FLUOXETINE HCL 40 MG CAPSULE PO (07:41)
[2022-04-12] MEDS: lisinopriL 40 MG TABLET PO (07:42)
[2022-04-12] MEDS: METOPROLOL TARTRATE 50 MG TABLET PO ×2 (07:42→15:21)
[2022-04-12] MEDS: FLUOXETINE HCL 20 MG CAPSULE PO (07:42)
[2022-04-12] MEDS: FUROSEMIDE 40 MG TABLET 20 MG PO (07:42)
[2022-04-12] MEDS: ROSUVASTATIN CALCIUM 20 MG TABLET PO (07:43)
[2022-04-12] MEDS: PRESERVISION AREDS 1 EACH PO ×2 (07:43→15:22)
[2022-04-12] MEDS: POTASSIUM CHLORIDE 20 MEQ TAB.ER.PRT 40 MEQ PO ×2 (07:43→15:22)
[2022-04-12] MEDS: TRAMADOL HCL 50 MG TABLET PO ×3 (07:43→20:12)
[2022-04-12] MEDS: INSULIN GLARGINE,HUM.REC.ANLOG 100 UNIT/ML INSULN.PEN 22 UNIT SUBCUT (07:51)
[2022-04-12 11:01] VITALS: TEMP 36.3; O2SAT 97
[2022-04-12 15:00] VITALS: TEMP 36.6; O2SAT 96
[2022-04-12] MEDS: FLUCONAZOLE 100 MG TABLET 150 MG PO (20:12)
[2022-04-12 23:00] VITALS: TEMP 36.5; O2SAT 95
--- NOTE | 2022-04-13 01:58 | PC.NURSE ---
Week #2 Resident is a fall risk, has had no falls in the last month. Is to wear gripper shoes/socks every shift. Temporary care plan reviewed, updated on yeast infection. Care plan reviewed, no change. Resident is one assist with bed mobility and one assist with medi stand for all transfers. Will call for help, prefers to be left alone on NOC.
[2022-04-13] MEDS: lisinopriL 40 MG TABLET PO (08:19)
[2022-04-13] MEDS: INSULIN GLARGINE,HUM.REC.ANLOG 100 UNIT/ML INSULN.PEN 22 UNIT SUBCUT (08:19)
[2022-04-13] MEDS: FUROSEMIDE 40 MG TABLET 20 MG PO (08:19)
[2022-04-13] MEDS: FLUOXETINE HCL 20 MG CAPSULE PO (08:19)
[2022-04-13] MEDS: FLUOXETINE HCL 40 MG CAPSULE PO (08:19)
[2022-04-13] MEDS: AMLODIPINE 10 MG TABLET PO (08:19)
[2022-04-13] MEDS: BUSPIRONE 10 MG TABLET PO ×2 (08:19→15:51)
[2022-04-13] MEDS: ASPIRIN EC 325 MG TABLET PO (08:19)
[2022-04-13] MEDS: METOPROLOL TARTRATE 50 MG TABLET PO ×2 (08:19→15:51)
[2022-04-13] MEDS: ROSUVASTATIN CALCIUM 20 MG TABLET PO (08:20)
[2022-04-13] MEDS: POTASSIUM CHLORIDE 20 MEQ TAB.ER.PRT 40 MEQ PO ×2 (08:20→15:52)
[2022-04-13] MEDS: PRESERVISION AREDS 1 EACH PO ×2 (08:20→15:52)
[2022-04-13] MEDS: TRAMADOL HCL 50 MG TABLET PO ×3 (08:20→20:46)
[2022-04-13 12:20] VITALS: TEMP 36.3; O2SAT 95
[2022-04-13 15:00] VITALS: TEMP 36.6; O2SAT 95
[2022-04-13 23:00] VITALS: TEMP 36; O2SAT 95
[2022-04-14] MEDS: ASPIRIN EC 325 MG TABLET PO (07:36)
[2022-04-14] MEDS: AMLODIPINE 10 MG TABLET PO (07:36)
[2022-04-14] MEDS: FUROSEMIDE 40 MG TABLET 20 MG PO (07:37)
[2022-04-14] MEDS: lisinopriL 40 MG TABLET PO (07:37)
[2022-04-14] MEDS: FLUOXETINE HCL 40 MG CAPSULE PO (07:37)
[2022-04-14] MEDS: FLUOXETINE HCL 20 MG CAPSULE PO (07:37)
[2022-04-14] MEDS: BUSPIRONE 10 MG TABLET PO ×2 (07:37→15:14)
[2022-04-14] MEDS: METOPROLOL TARTRATE 50 MG TABLET PO ×2 (07:38→15:15)
[2022-04-14] MEDS: PRESERVISION AREDS 1 EACH PO ×2 (07:38→15:15)
[2022-04-14] MEDS: POTASSIUM CHLORIDE 20 MEQ TAB.ER.PRT 40 MEQ PO ×2 (07:39→15:15)
[2022-04-14] MEDS: ROSUVASTATIN CALCIUM 20 MG TABLET PO (07:39)
[2022-04-14] MEDS: TRAMADOL HCL 50 MG TABLET PO ×3 (07:39→20:46)
[2022-04-14] MEDS: INSULIN GLARGINE,HUM.REC.ANLOG 100 UNIT/ML INSULN.PEN 22 UNIT SUBCUT (07:57)
[2022-04-14 13:10] VITALS: TEMP 36.4; O2SAT 97
[2022-04-14 15:00] VITALS: TEMP 35.8; O2SAT 98
[2022-04-14 23:00] VITALS: TEMP 36.3; O2SAT 95
[2022-04-15] MEDS: FLUOXETINE HCL 20 MG CAPSULE PO (07:11)
[2022-04-15] MEDS: AMLODIPINE 10 MG TABLET PO (07:11)
[2022-04-15] MEDS: BUSPIRONE 10 MG TABLET PO ×2 (07:11→16:15)
[2022-04-15] MEDS: FLUOXETINE HCL 40 MG CAPSULE PO (07:11)
[2022-04-15] MEDS: ASPIRIN EC 325 MG TABLET PO (07:11)
[2022-04-15] MEDS: lisinopriL 40 MG TABLET PO (07:12)
[2022-04-15] MEDS: PRESERVISION AREDS 1 EACH PO ×2 (07:12→16:15)
[2022-04-15] MEDS: FUROSEMIDE 40 MG TABLET 20 MG PO (07:12)
[2022-04-15] MEDS: METOPROLOL TARTRATE 50 MG TABLET PO ×2 (07:12→16:15)
[2022-04-15] MEDS: NYSTATIN POWDER 1 APPLIC TOPICAL ×2 (07:17→20:05)
[2022-04-15] MEDS: POTASSIUM CHLORIDE 20 MEQ TAB.ER.PRT 40 MEQ PO ×2 (07:17→16:16)
[2022-04-15] MEDS: TRAMADOL HCL 50 MG TABLET PO ×3 (07:17→19:30)
[2022-04-15] MEDS: ROSUVASTATIN CALCIUM 20 MG TABLET PO (07:17)
[2022-04-15] MEDS: INSULIN GLARGINE,HUM.REC.ANLOG 100 UNIT/ML INSULN.PEN 22 UNIT SUBCUT (08:09)
[2022-04-15 10:55] VITALS: TEMP 36.2; O2SAT 94
[2022-04-15 15:00] VITALS: TEMP 36.1; O2SAT 96
[2022-04-15 23:00] VITALS: TEMP 36.2; O2SAT 98
[2022-04-16] MEDS: AMLODIPINE 10 MG TABLET PO (08:19)
[2022-04-16] MEDS: INSULIN GLARGINE,HUM.REC.ANLOG 100 UNIT/ML INSULN.PEN 22 UNIT SUBCUT (08:20)
[2022-04-16] MEDS: BUSPIRONE 10 MG TABLET PO ×2 (08:20→15:10)
[2022-04-16] MEDS: ASPIRIN EC 325 MG TABLET PO (08:20)
[2022-04-16] MEDS: FLUOXETINE HCL 40 MG CAPSULE PO (08:20)
[2022-04-16] MEDS: FLUOXETINE HCL 20 MG CAPSULE PO (08:20)
[2022-04-16] MEDS: lisinopriL 40 MG TABLET PO (08:21)
[2022-04-16] MEDS: METOPROLOL TARTRATE 50 MG TABLET PO ×2 (08:21→15:10)
[2022-04-16] MEDS: POTASSIUM CHLORIDE 20 MEQ TAB.ER.PRT 40 MEQ PO ×2 (08:21→15:10)
[2022-04-16] MEDS: TRAMADOL HCL 50 MG TABLET PO ×3 (08:21→19:38)
[2022-04-16] MEDS: ROSUVASTATIN CALCIUM 20 MG TABLET PO (08:21)
[2022-04-16] MEDS: FUROSEMIDE 40 MG TABLET 20 MG PO (08:21)
[2022-04-16] MEDS: PRESERVISION AREDS 1 EACH PO ×2 (08:21→15:10)
[2022-04-16 13:42] VITALS: TEMP 36.2; O2SAT 96
[2022-04-16 15:00] VITALS: TEMP 36.6; O2SAT 96
[2022-04-16] MEDS: MAG HYDROX/ALUMINUM HYD/SIMETH 30 ML ORAL.SUSP PO (16:22)
[2022-04-16 23:28] VITALS: TEMP 35.9; O2SAT 94
[2022-04-17] MEDS: AMLODIPINE 10 MG TABLET PO (07:32)
[2022-04-17] MEDS: FLUOXETINE HCL 40 MG CAPSULE PO (07:32)
[2022-04-17] MEDS: BUSPIRONE 10 MG TABLET PO ×2 (07:32→15:22)
[2022-04-17] MEDS: FLUOXETINE HCL 20 MG CAPSULE PO (07:32)
[2022-04-17] MEDS: ASPIRIN EC 325 MG TABLET PO (07:32)
[2022-04-17] MEDS: POTASSIUM CHLORIDE 20 MEQ TAB.ER.PRT 40 MEQ PO ×2 (07:33→15:25)
[2022-04-17] MEDS: PRESERVISION AREDS 1 EACH PO ×2 (07:33→15:23)
[2022-04-17] MEDS: METOPROLOL TARTRATE 50 MG TABLET PO ×2 (07:33→15:22)
[2022-04-17] MEDS: lisinopriL 40 MG TABLET PO (07:33)
[2022-04-17] MEDS: FUROSEMIDE 40 MG TABLET 20 MG PO (07:33)
[2022-04-17] MEDS: TRAMADOL HCL 50 MG TABLET PO ×3 (07:35→19:38)
[2022-04-17] MEDS: ROSUVASTATIN CALCIUM 20 MG TABLET PO (07:35)
[2022-04-17] MEDS: INSULIN GLARGINE,HUM.REC.ANLOG 100 UNIT/ML INSULN.PEN 22 UNIT SUBCUT (08:12)
[2022-04-17 10:29] VITALS: TEMP 36.4; O2SAT 97
--- NOTE | 2022-04-17 13:50 | PC.NURSE ---
COVID OUTBREAK TESTING: Residents daughter provided verbal consent for outbreak COVID testing. Resident is currently asymptomatic. Resident/family will be notified only if resident is positive.
[2022-04-17 16:13] LABS: SARS PCR* Negative SARS-CoV-2 (Negative)
[2022-04-17 16:32] VITALS: TEMP 36.2; O2SAT 97
[2022-04-18 00:12] VITALS: TEMP 36.8; O2SAT 96
--- NOTE | 2022-04-18 04:59 | PC.NURSE ---
Resident bed and linen was wet at 0400 and output from catheter was only 150mls. Catheter was irrigate at 0430 with 50mls and managed to aspirate about 40mls.
[2022-04-18] MEDS: INSULIN GLARGINE,HUM.REC.ANLOG 100 UNIT/ML INSULN.PEN 22 UNIT SUBCUT (08:16)
[2022-04-18] MEDS: FLUOXETINE HCL 20 MG CAPSULE PO (08:16)
[2022-04-18] MEDS: ASPIRIN EC 325 MG TABLET PO (08:16)
[2022-04-18] MEDS: AMLODIPINE 10 MG TABLET PO (08:16)
[2022-04-18] MEDS: BUSPIRONE 10 MG TABLET PO ×2 (08:16→15:39)
[2022-04-18] MEDS: FLUOXETINE HCL 40 MG CAPSULE PO (08:16)
[2022-04-18] MEDS: PRESERVISION AREDS 1 EACH PO ×2 (08:17→15:39)
[2022-04-18] MEDS: FUROSEMIDE 40 MG TABLET 20 MG PO (08:17)
[2022-04-18] MEDS: lisinopriL 40 MG TABLET PO (08:17)
[2022-04-18] MEDS: METOPROLOL TARTRATE 50 MG TABLET PO ×2 (08:17→15:39)
[2022-04-18] MEDS: TRAMADOL HCL 50 MG TABLET PO ×3 (08:26→20:28)
[2022-04-18] MEDS: POTASSIUM CHLORIDE 20 MEQ TAB.ER.PRT 40 MEQ PO ×2 (08:26→15:39)
[2022-04-18] MEDS: ROSUVASTATIN CALCIUM 20 MG TABLET PO (08:26)
[2022-04-18 10:35] VITALS: TEMP 36.4; O2SAT 98
[2022-04-18 15:00] VITALS: BP 140/79; PULSE 60; RESP 20; TEMP 36.6; O2SAT 95
[2022-04-18 16:00] VITALS: BMI 32.1
[2022-04-19 01:01] VITALS: TEMP 36.3; O2SAT 94
[2022-04-19] MEDS: AMLODIPINE 10 MG TABLET PO (08:27)
[2022-04-19] MEDS: FUROSEMIDE 40 MG TABLET 20 MG PO (08:28)
[2022-04-19] MEDS: ASPIRIN EC 325 MG TABLET PO (08:28)
[2022-04-19] MEDS: FLUOXETINE HCL 40 MG CAPSULE PO (08:28)
[2022-04-19] MEDS: FLUOXETINE HCL 20 MG CAPSULE PO (08:28)
[2022-04-19] MEDS: lisinopriL 40 MG TABLET PO (08:28)
[2022-04-19] MEDS: INSULIN GLARGINE,HUM.REC.ANLOG 100 UNIT/ML INSULN.PEN 22 UNIT SUBCUT (08:28)
[2022-04-19] MEDS: BUSPIRONE 10 MG TABLET PO ×2 (08:28→15:14)
[2022-04-19] MEDS: ROSUVASTATIN CALCIUM 20 MG TABLET PO (08:29)
[2022-04-19] MEDS: PRESERVISION AREDS 1 EACH PO ×2 (08:29→15:14)
[2022-04-19] MEDS: POTASSIUM CHLORIDE 20 MEQ TAB.ER.PRT 40 MEQ PO ×2 (08:29→15:14)
[2022-04-19] MEDS: METOPROLOL TARTRATE 50 MG TABLET PO ×2 (08:29→15:14)
[2022-04-19] MEDS: TRAMADOL HCL 50 MG TABLET PO ×3 (08:29→20:28)
--- NOTE | 2022-04-19 09:59 | PC.SPIRITC ---
Mud Logger provided visit for support and connection.
--- NOTE | 2022-04-19 15:09 | PC.PHA ---
Pharmacy Review ~ Patient continues on polypharmacy with all medications having corresponding indications. Her blood pressure continues to run in the high normal range. Renal Dosing for Oseltamivir: Treatment:30 mg po BID for 5 days Prophylaxis:30 mg po daily for 14 days or longer (see policy).
--- NOTE | 2022-04-20 01:38 | PC.NURSE ---
Week #3: Resident has no new skin issues, has a suprapubic cath, dressing changed every evening. Temporary care plan reviewed, no change. Care plan 30-39 reviewed, no change. Resident has a supra pubic catheter, will call if needing to go to the bathroom. Prefers not to be bothered on NOC.
--- NOTE | 2022-04-20 07:22 | PC.NURSE ---
Week #3: Care plan problems 30-39 and temporary care plan reviewed. No changes made. Nothing added to temporary care plan. Has a suprapubic catheter connected to the leg bag during the day, emptied q shift by staff. Catheter changed monthly by staff. Catheter irrigated every Sunday & PRN. She is mostly continent of bowels. Will call when need to use the toilet for BM's, with one assist using the medi stand for transfers. Wears pads. Pads, edward cares, clothing adjustment managed by staff. Suprapubic site cleansed daily and covered with 4x4. Skin is checked during cares & on bath day. Skin: No issues at this time. Suprapubic site cleansed daily & covered with 4 x 4. Skin is checked during cares and on bath day.
[2022-04-20] MEDS: ASPIRIN EC 325 MG TABLET PO (07:28)
[2022-04-20] MEDS: FLUOXETINE HCL 40 MG CAPSULE PO (07:28)
[2022-04-20] MEDS: BUSPIRONE 10 MG TABLET PO ×2 (07:28→15:05)
[2022-04-20] MEDS: AMLODIPINE 10 MG TABLET PO (07:28)
[2022-04-20] MEDS: FUROSEMIDE 40 MG TABLET 20 MG PO (07:29)
[2022-04-20] MEDS: FLUOXETINE HCL 20 MG CAPSULE PO (07:29)
[2022-04-20] MEDS: PRESERVISION AREDS 1 EACH PO ×2 (07:29→15:06)
[2022-04-20] MEDS: lisinopriL 40 MG TABLET PO (07:29)
[2022-04-20] MEDS: METOPROLOL TARTRATE 50 MG TABLET PO ×2 (07:29→15:05)
[2022-04-20] MEDS: ROSUVASTATIN CALCIUM 20 MG TABLET PO (07:30)
[2022-04-20] MEDS: POTASSIUM CHLORIDE 20 MEQ TAB.ER.PRT 40 MEQ PO ×2 (07:30→15:06)
[2022-04-20] MEDS: TRAMADOL HCL 50 MG TABLET PO ×3 (07:30→20:24)
[2022-04-20] MEDS: INSULIN GLARGINE,HUM.REC.ANLOG 100 UNIT/ML INSULN.PEN 22 UNIT SUBCUT (07:54)
[2022-04-21] MEDS: INSULIN GLARGINE,HUM.REC.ANLOG 100 UNIT/ML INSULN.PEN 22 UNIT SUBCUT (08:18)
[2022-04-21] MEDS: ASPIRIN EC 325 MG TABLET PO (08:18)
[2022-04-21] MEDS: AMLODIPINE 10 MG TABLET PO (08:18)
[2022-04-21] MEDS: METOPROLOL TARTRATE 50 MG TABLET PO ×2 (08:21→16:24)
[2022-04-21] MEDS: FLUOXETINE HCL 20 MG CAPSULE PO (08:21)
[2022-04-21] MEDS: FLUOXETINE HCL 40 MG CAPSULE PO (08:21)
[2022-04-21] MEDS: FUROSEMIDE 40 MG TABLET 20 MG PO (08:21)
[2022-04-21] MEDS: PRESERVISION AREDS 1 EACH PO ×2 (08:21→16:33)
[2022-04-21] MEDS: lisinopriL 40 MG TABLET PO (08:21)
[2022-04-21] MEDS: BUSPIRONE 10 MG TABLET PO ×2 (08:21→16:24)
[2022-04-21] MEDS: TRAMADOL HCL 50 MG TABLET PO ×3 (08:22→20:10)
[2022-04-21] MEDS: POTASSIUM CHLORIDE 20 MEQ TAB.ER.PRT 40 MEQ PO ×2 (08:22→16:32)
[2022-04-21] MEDS: ROSUVASTATIN CALCIUM 20 MG TABLET PO (08:22)
[2022-04-22] MEDS: TRAMADOL HCL 50 MG TABLET PO ×3 (07:51→20:00)
[2022-04-22] MEDS: lisinopriL 40 MG TABLET PO (08:00)
[2022-04-22] MEDS: POTASSIUM CHLORIDE 20 MEQ TAB.ER.PRT 40 MEQ PO ×2 (08:00→16:23)
[2022-04-22] MEDS: FUROSEMIDE 40 MG TABLET 20 MG PO (08:00)
[2022-04-22] MEDS: METOPROLOL TARTRATE 50 MG TABLET PO ×2 (08:00→16:23)
[2022-04-22] MEDS: ROSUVASTATIN CALCIUM 20 MG TABLET PO (08:00)
[2022-04-22] MEDS: PRESERVISION AREDS 1 EACH PO ×2 (08:00→16:23)
[2022-04-22] MEDS: BUSPIRONE 10 MG TABLET PO ×2 (08:01→16:23)
[2022-04-22] MEDS: AMLODIPINE 10 MG TABLET PO (08:01)
[2022-04-22] MEDS: FLUOXETINE HCL 40 MG CAPSULE PO (08:01)
[2022-04-22] MEDS: ASPIRIN EC 325 MG TABLET PO (08:01)
[2022-04-22] MEDS: FLUOXETINE HCL 20 MG CAPSULE PO (08:01)
[2022-04-22] MEDS: INSULIN GLARGINE,HUM.REC.ANLOG 100 UNIT/ML INSULN.PEN 22 UNIT SUBCUT (08:25)
[2022-04-23] MEDS: ASPIRIN EC 325 MG TABLET PO (07:15)
[2022-04-23] MEDS: AMLODIPINE 10 MG TABLET PO (07:15)
[2022-04-23] MEDS: ROSUVASTATIN CALCIUM 20 MG TABLET PO (07:16)
[2022-04-23] MEDS: FLUOXETINE HCL 40 MG CAPSULE PO (07:16)
[2022-04-23] MEDS: FUROSEMIDE 40 MG TABLET 20 MG PO (07:16)
[2022-04-23] MEDS: TRAMADOL HCL 50 MG TABLET PO ×3 (07:16→19:22)
[2022-04-23] MEDS: POTASSIUM CHLORIDE 20 MEQ TAB.ER.PRT 40 MEQ PO ×2 (07:16→15:48)
[2022-04-23] MEDS: lisinopriL 40 MG TABLET PO (07:16)
[2022-04-23] MEDS: BUSPIRONE 10 MG TABLET PO ×2 (07:16→15:48)
[2022-04-23] MEDS: METOPROLOL TARTRATE 50 MG TABLET PO ×2 (07:16→15:48)
[2022-04-23] MEDS: PRESERVISION AREDS 1 EACH PO ×2 (07:16→15:48)
[2022-04-23] MEDS: FLUOXETINE HCL 20 MG CAPSULE PO (07:16)
[2022-04-23] MEDS: INSULIN GLARGINE,HUM.REC.ANLOG 100 UNIT/ML INSULN.PEN 22 UNIT SUBCUT (08:26)
[2022-04-24] MEDS: ASPIRIN EC 325 MG TABLET PO (07:31)
[2022-04-24] MEDS: BUSPIRONE 10 MG TABLET PO ×2 (07:31→15:56)
[2022-04-24] MEDS: FLUOXETINE HCL 20 MG CAPSULE PO (07:31)
[2022-04-24] MEDS: AMLODIPINE 10 MG TABLET PO (07:31)
[2022-04-24] MEDS: FLUOXETINE HCL 40 MG CAPSULE PO (07:31)
[2022-04-24] MEDS: METOPROLOL TARTRATE 50 MG TABLET PO ×2 (07:32→15:56)
[2022-04-24] MEDS: POTASSIUM CHLORIDE 20 MEQ TAB.ER.PRT 40 MEQ PO ×2 (07:32→15:56)
[2022-04-24] MEDS: PRESERVISION AREDS 1 EACH PO ×2 (07:32→15:56)
[2022-04-24] MEDS: lisinopriL 40 MG TABLET PO (07:32)
[2022-04-24] MEDS: FUROSEMIDE 40 MG TABLET 20 MG PO (07:32)
[2022-04-24] MEDS: ROSUVASTATIN CALCIUM 20 MG TABLET PO (07:33)
[2022-04-24] MEDS: TRAMADOL HCL 50 MG TABLET PO ×3 (07:33→20:43)
[2022-04-24] MEDS: INSULIN GLARGINE,HUM.REC.ANLOG 100 UNIT/ML INSULN.PEN 22 UNIT SUBCUT (08:19)
[2022-04-25] MEDS: ASPIRIN EC 325 MG TABLET PO (07:37)
[2022-04-25] MEDS: AMLODIPINE 10 MG TABLET PO (07:37)
[2022-04-25] MEDS: POTASSIUM CHLORIDE 20 MEQ TAB.ER.PRT 40 MEQ PO ×2 (07:38→15:10)
[2022-04-25] MEDS: PRESERVISION AREDS 1 EACH PO ×2 (07:38→15:01)
[2022-04-25] MEDS: FUROSEMIDE 40 MG TABLET 20 MG PO (07:38)
[2022-04-25] MEDS: BUSPIRONE 10 MG TABLET PO ×2 (07:38→15:00)
[2022-04-25] MEDS: FLUOXETINE HCL 20 MG CAPSULE PO (07:38)
[2022-04-25] MEDS: METOPROLOL TARTRATE 50 MG TABLET PO ×2 (07:38→15:00)
[2022-04-25] MEDS: lisinopriL 40 MG TABLET PO (07:38)
[2022-04-25] MEDS: INSULIN GLARGINE,HUM.REC.ANLOG 100 UNIT/ML INSULN.PEN 22 UNIT SUBCUT (07:38)
[2022-04-25] MEDS: FLUOXETINE HCL 40 MG CAPSULE PO (07:38)
[2022-04-25] MEDS: TRAMADOL HCL 50 MG TABLET PO ×3 (07:39→19:35)
[2022-04-25] MEDS: ROSUVASTATIN CALCIUM 20 MG TABLET PO (07:39)
[2022-04-25 16:53] VITALS: BP 145/72; PULSE 62; RESP 18; TEMP 36.2; O2SAT 94; BMI 30.9
[2022-04-26] MEDS: AMLODIPINE 10 MG TABLET PO (07:26)
[2022-04-26] MEDS: ASPIRIN EC 325 MG TABLET PO (07:26)
[2022-04-26] MEDS: FLUOXETINE HCL 40 MG CAPSULE PO (07:27)
[2022-04-26] MEDS: BUSPIRONE 10 MG TABLET PO ×2 (07:27→15:09)
[2022-04-26] MEDS: lisinopriL 40 MG TABLET PO (07:28)
[2022-04-26] MEDS: METOPROLOL TARTRATE 50 MG TABLET PO ×2 (07:28→15:09)
[2022-04-26] MEDS: FLUOXETINE HCL 20 MG CAPSULE PO (07:28)
[2022-04-26] MEDS: FUROSEMIDE 40 MG TABLET 20 MG PO (07:28)
[2022-04-26] MEDS: TRAMADOL HCL 50 MG TABLET PO ×3 (07:30→19:41)
[2022-04-26] MEDS: POTASSIUM CHLORIDE 20 MEQ TAB.ER.PRT 40 MEQ PO ×2 (07:30→15:09)
[2022-04-26] MEDS: PRESERVISION AREDS 1 EACH PO ×2 (07:30→15:09)
[2022-04-26] MEDS: ROSUVASTATIN CALCIUM 20 MG TABLET PO (07:30)
[2022-04-26] MEDS: INSULIN GLARGINE,HUM.REC.ANLOG 100 UNIT/ML INSULN.PEN 22 UNIT SUBCUT (07:42)
--- NOTE | 2022-04-27 03:25 | PC.NURSE ---
Week #4: No change in mood/behavior. Currently receives buspirone 10mg BID and fluoxetine 60mg daily with no adverse effects. Temporary care plan and care plan problems 40-119 reviewed with no changes. No change in communication, hearing, vision, or orientation. No change in chronic health conditions. Hydrocortisone cream and PRN tramadol were discontinued in the last month. All medications administered by nursing staff. No behavioral concerns note during the noc.
--- NOTE | 2022-04-27 06:57 | PC.NURSE ---
Week #4: Care plan problems 40-119 and temporary care plan reviewed. No changes made. Nothing added to temporary care plan. No changes noted in communication, hearing, vision, orientation. She does communicate needs. No hearing issues. Wears glasses. Chronic health condition stable. Staff administers medications. Mood/Behavior: No issues. Continues on Buspar 10mg BID, Prozac 60mg daily with no adverse effects noted. No change in medications.
[2022-04-27] MEDS: ASPIRIN EC 325 MG TABLET PO (07:26)
[2022-04-27] MEDS: AMLODIPINE 10 MG TABLET PO (07:26)
[2022-04-27] MEDS: BUSPIRONE 10 MG TABLET PO ×2 (07:27→16:27)
[2022-04-27] MEDS: FUROSEMIDE 40 MG TABLET 20 MG PO (07:27)
[2022-04-27] MEDS: FLUOXETINE HCL 40 MG CAPSULE PO (07:27)
[2022-04-27] MEDS: FLUOXETINE HCL 20 MG CAPSULE PO (07:27)
[2022-04-27] MEDS: INSULIN GLARGINE,HUM.REC.ANLOG 100 UNIT/ML INSULN.PEN 22 UNIT SUBCUT (07:27)
[2022-04-27] MEDS: lisinopriL 40 MG TABLET PO (07:27)
[2022-04-27] MEDS: METOPROLOL TARTRATE 50 MG TABLET PO ×2 (07:27→16:27)
[2022-04-27] MEDS: PRESERVISION AREDS 1 EACH PO ×2 (07:29→16:27)
[2022-04-27] MEDS: POTASSIUM CHLORIDE 20 MEQ TAB.ER.PRT 40 MEQ PO ×2 (07:29→16:27)
[2022-04-27] MEDS: TRAMADOL HCL 50 MG TABLET PO ×3 (07:29→20:05)
[2022-04-27] MEDS: ROSUVASTATIN CALCIUM 20 MG TABLET PO (07:29)
[2022-04-28] MEDS: ASPIRIN EC 325 MG TABLET PO (07:11)
[2022-04-28] MEDS: AMLODIPINE 10 MG TABLET PO (07:11)
[2022-04-28] MEDS: BUSPIRONE 10 MG TABLET PO ×2 (07:11→15:00)
[2022-04-28] MEDS: FLUOXETINE HCL 20 MG CAPSULE PO (07:12)
[2022-04-28] MEDS: METOPROLOL TARTRATE 50 MG TABLET PO ×2 (07:12→15:00)
[2022-04-28] MEDS: FLUOXETINE HCL 40 MG CAPSULE PO (07:12)
[2022-04-28] MEDS: lisinopriL 40 MG TABLET PO (07:12)
[2022-04-28] MEDS: FUROSEMIDE 40 MG TABLET 20 MG PO (07:12)
[2022-04-28] MEDS: PRESERVISION AREDS 1 EACH PO ×2 (07:13→15:01)
[2022-04-28] MEDS: ROSUVASTATIN CALCIUM 20 MG TABLET PO (07:14)
[2022-04-28] MEDS: TRAMADOL HCL 50 MG TABLET PO ×3 (07:14→20:32)
[2022-04-28] MEDS: POTASSIUM CHLORIDE 20 MEQ TAB.ER.PRT 40 MEQ PO ×2 (07:14→15:01)
[2022-04-28] MEDS: INSULIN GLARGINE,HUM.REC.ANLOG 100 UNIT/ML INSULN.PEN 22 UNIT SUBCUT (08:19)
[2022-04-29] MEDS: ASPIRIN EC 325 MG TABLET PO (07:11)
[2022-04-29] MEDS: FLUOXETINE HCL 20 MG CAPSULE PO (07:11)
[2022-04-29] MEDS: BUSPIRONE 10 MG TABLET PO ×2 (07:11→15:12)
[2022-04-29] MEDS: FLUOXETINE HCL 40 MG CAPSULE PO (07:11)
[2022-04-29] MEDS: AMLODIPINE 10 MG TABLET PO (07:11)
[2022-04-29] MEDS: METOPROLOL TARTRATE 50 MG TABLET PO ×2 (07:12→15:12)
[2022-04-29] MEDS: FUROSEMIDE 40 MG TABLET 20 MG PO (07:12)
[2022-04-29] MEDS: lisinopriL 40 MG TABLET PO (07:12)
[2022-04-29] MEDS: PRESERVISION AREDS 1 EACH PO ×2 (07:12→15:12)
[2022-04-29] MEDS: TRAMADOL HCL 50 MG TABLET PO ×3 (07:13→20:20)
[2022-04-29] MEDS: ROSUVASTATIN CALCIUM 20 MG TABLET PO (07:13)
[2022-04-29] MEDS: POTASSIUM CHLORIDE 20 MEQ TAB.ER.PRT 40 MEQ PO ×2 (07:13→15:12)
[2022-04-29] MEDS: INSULIN GLARGINE,HUM.REC.ANLOG 100 UNIT/ML INSULN.PEN 22 UNIT SUBCUT (08:19)
[2022-04-30] MEDS: AMLODIPINE 10 MG TABLET PO (07:16)
[2022-04-30] MEDS: ASPIRIN EC 325 MG TABLET PO (07:16)
[2022-04-30] MEDS: FLUOXETINE HCL 40 MG CAPSULE PO (07:17)
[2022-04-30] MEDS: METOPROLOL TARTRATE 50 MG TABLET PO ×2 (07:17→15:56)
[2022-04-30] MEDS: FLUOXETINE HCL 20 MG CAPSULE PO (07:17)
[2022-04-30] MEDS: lisinopriL 40 MG TABLET PO (07:17)
[2022-04-30] MEDS: FUROSEMIDE 40 MG TABLET 20 MG PO (07:17)
[2022-04-30] MEDS: BUSPIRONE 10 MG TABLET PO ×2 (07:17→15:56)
[2022-04-30] MEDS: PRESERVISION AREDS 1 EACH PO ×2 (07:18→15:56)
[2022-04-30] MEDS: POTASSIUM CHLORIDE 20 MEQ TAB.ER.PRT 40 MEQ PO ×2 (07:18→15:57)
[2022-04-30] MEDS: TRAMADOL HCL 50 MG TABLET PO ×3 (07:19→19:26)
[2022-04-30] MEDS: ROSUVASTATIN CALCIUM 20 MG TABLET PO (07:19)
[2022-04-30] MEDS: INSULIN GLARGINE,HUM.REC.ANLOG 100 UNIT/ML INSULN.PEN 22 UNIT SUBCUT (08:22)
[2022-05-01] MEDS: AMLODIPINE 10 MG TABLET PO (07:31)
[2022-05-01] MEDS: FLUOXETINE HCL 20 MG CAPSULE PO (07:32)
[2022-05-01] MEDS: lisinopriL 40 MG TABLET PO (07:32)
[2022-05-01] MEDS: ASPIRIN EC 325 MG TABLET PO (07:32)
[2022-05-01] MEDS: BUSPIRONE 10 MG TABLET PO ×2 (07:32→15:37)
[2022-05-01] MEDS: FLUOXETINE HCL 40 MG CAPSULE PO (07:32)
[2022-05-01] MEDS: FUROSEMIDE 40 MG TABLET 20 MG PO (07:32)
[2022-05-01] MEDS: TRAMADOL HCL 50 MG TABLET PO ×3 (07:33→20:20)
[2022-05-01] MEDS: METOPROLOL TARTRATE 50 MG TABLET PO ×2 (07:33→15:37)
[2022-05-01] MEDS: PRESERVISION AREDS 1 EACH PO ×2 (07:33→15:37)
[2022-05-01] MEDS: ROSUVASTATIN CALCIUM 20 MG TABLET PO (07:33)
[2022-05-01] MEDS: POTASSIUM CHLORIDE 20 MEQ TAB.ER.PRT 40 MEQ PO ×2 (07:33→15:37)
[2022-05-01] MEDS: INSULIN GLARGINE,HUM.REC.ANLOG 100 UNIT/ML INSULN.PEN 22 UNIT SUBCUT (07:53)
[2022-05-02] MEDS: AMLODIPINE 10 MG TABLET PO (07:37)
[2022-05-02] MEDS: INSULIN GLARGINE,HUM.REC.ANLOG 100 UNIT/ML INSULN.PEN 22 UNIT SUBCUT (07:37)
[2022-05-02] MEDS: ASPIRIN EC 325 MG TABLET PO (07:37)
[2022-05-02] MEDS: FLUOXETINE HCL 20 MG CAPSULE PO (07:42)
[2022-05-02] MEDS: FUROSEMIDE 40 MG TABLET 20 MG PO (07:42)
[2022-05-02] MEDS: FLUOXETINE HCL 40 MG CAPSULE PO (07:42)
[2022-05-02] MEDS: TRAMADOL HCL 50 MG TABLET PO ×3 (07:42→20:10)
[2022-05-02] MEDS: lisinopriL 40 MG TABLET PO (07:42)
[2022-05-02] MEDS: PRESERVISION AREDS 1 EACH PO ×2 (07:42→15:24)
[2022-05-02] MEDS: BUSPIRONE 10 MG TABLET PO ×2 (07:42→15:23)
[2022-05-02] MEDS: POTASSIUM CHLORIDE 20 MEQ TAB.ER.PRT 40 MEQ PO ×2 (07:42→15:24)
[2022-05-02] MEDS: METOPROLOL TARTRATE 50 MG TABLET PO ×2 (07:42→15:23)
[2022-05-02] MEDS: ROSUVASTATIN CALCIUM 20 MG TABLET PO (07:42)
[2022-05-02 15:00] VITALS: BP 176/63; PULSE 62; RESP 18; TEMP 36.5; O2SAT 98
[2022-05-03] MEDS: AMLODIPINE 10 MG TABLET PO (07:29)
[2022-05-03] MEDS: INSULIN GLARGINE,HUM.REC.ANLOG 100 UNIT/ML INSULN.PEN 22 UNIT SUBCUT (07:29)
[2022-05-03] MEDS: BUSPIRONE 10 MG TABLET PO ×2 (07:29→15:01)
[2022-05-03] MEDS: ASPIRIN EC 325 MG TABLET PO (07:29)
[2022-05-03] MEDS: POTASSIUM CHLORIDE 20 MEQ TAB.ER.PRT 40 MEQ PO ×2 (07:30→15:01)
[2022-05-03] MEDS: PRESERVISION AREDS 1 EACH PO ×2 (07:30→15:01)
[2022-05-03] MEDS: FLUOXETINE HCL 20 MG CAPSULE PO (07:30)
[2022-05-03] MEDS: ROSUVASTATIN CALCIUM 20 MG TABLET PO (07:30)
[2022-05-03] MEDS: METOPROLOL TARTRATE 50 MG TABLET PO ×2 (07:30→15:01)
[2022-05-03] MEDS: lisinopriL 40 MG TABLET PO (07:30)
[2022-05-03] MEDS: TRAMADOL HCL 50 MG TABLET PO ×3 (07:30→20:37)
[2022-05-03] MEDS: FLUOXETINE HCL 40 MG CAPSULE PO (07:30)
[2022-05-03] MEDS: FUROSEMIDE 40 MG TABLET 20 MG PO (07:30)
[2022-05-03 14:43] VITALS: BMI 32.9
[2022-05-03 21:05] VITALS: BMI 33.0
--- NOTE | 2022-05-04 01:21 | PC.NURSE ---
Week #1: Has hx of pain. No c/o pain through the night. Receives tramadol 50mg TID and pregabalin 300mg BID for pain management which is noted to be effective. Pain does not impact quality of life or cause anxiety. Temporary care plan and care plan problems 1-19 reviewed with no changes. Assist of 1 with ADLs. Staff encourage resident participation. Uses EZ stand for all transfers. Independent with eating after setup. Has hx of swallowing difficulties with no noted incidence in the last month.
--- NOTE | 2022-05-04 06:36 | PC.NURSE ---
Week #1: Care plan problems 1-19 and temporary care plan reviewed. No changes made. Nothing added to temporary care plan. Resident needs extensive one assist with dressing, grooming and bathing. Encourage participation as able, assist with dressing her left upper half. Is able to do oral cares after set up. Staff complete as needed. Independent with feeding. Is on regular diet, large portions per her request. No problems noted in chewing or swallowing. Pain: Has chronic pain controlled with Lyrica 300mg BID, & Ultram 50mg @ , & 1999. No complain of pain the past month. She is able to make her needs known.
[2022-05-04] MEDS: FLUOXETINE HCL 40 MG CAPSULE PO (07:29)
[2022-05-04] MEDS: ASPIRIN EC 325 MG TABLET PO (07:29)
[2022-05-04] MEDS: AMLODIPINE 10 MG TABLET PO (07:29)
[2022-05-04] MEDS: FLUOXETINE HCL 20 MG CAPSULE PO (07:29)
[2022-05-04] MEDS: BUSPIRONE 10 MG TABLET PO ×2 (07:29→15:09)
[2022-05-04] MEDS: FUROSEMIDE 40 MG TABLET 20 MG PO (07:30)
[2022-05-04] MEDS: METOPROLOL TARTRATE 50 MG TABLET PO ×2 (07:30→15:09)
[2022-05-04] MEDS: PRESERVISION AREDS 1 EACH PO ×2 (07:30→15:09)
[2022-05-04] MEDS: lisinopriL 40 MG TABLET PO (07:30)
[2022-05-04] MEDS: POTASSIUM CHLORIDE 20 MEQ TAB.ER.PRT 40 MEQ PO ×2 (07:31→15:09)
[2022-05-04] MEDS: TRAMADOL HCL 50 MG TABLET PO ×3 (07:31→20:48)
[2022-05-04] MEDS: ROSUVASTATIN CALCIUM 20 MG TABLET PO (07:31)
[2022-05-04] MEDS: INSULIN GLARGINE,HUM.REC.ANLOG 100 UNIT/ML INSULN.PEN 22 UNIT SUBCUT (07:48)
--- NOTE | 2022-05-04 10:06 | PC.SPIRITC ---
provided visit for support, a chance to reminisce, and to help Shaista write a letter to her sister.
[2022-05-04 21:59] VITALS: BMI 33.0
[2022-05-05] MEDS: AMLODIPINE 10 MG TABLET PO (07:06)
[2022-05-05] MEDS: BUSPIRONE 10 MG TABLET PO ×2 (07:06→15:20)
[2022-05-05] MEDS: ASPIRIN EC 325 MG TABLET PO (07:06)
[2022-05-05] MEDS: FLUOXETINE HCL 40 MG CAPSULE PO (07:06)
[2022-05-05] MEDS: lisinopriL 40 MG TABLET PO (07:07)
[2022-05-05] MEDS: FUROSEMIDE 40 MG TABLET 20 MG PO (07:07)
[2022-05-05] MEDS: FLUOXETINE HCL 20 MG CAPSULE PO (07:07)
[2022-05-05] MEDS: METOPROLOL TARTRATE 50 MG TABLET PO ×2 (07:07→15:20)
[2022-05-05] MEDS: PRESERVISION AREDS 1 EACH PO ×2 (07:08→15:20)
[2022-05-05] MEDS: POTASSIUM CHLORIDE 20 MEQ TAB.ER.PRT 40 MEQ PO ×2 (07:08→15:21)
[2022-05-05] MEDS: ROSUVASTATIN CALCIUM 20 MG TABLET PO (07:09)
[2022-05-05] MEDS: TRAMADOL HCL 50 MG TABLET PO ×3 (07:16→19:21)
[2022-05-05] MEDS: INSULIN GLARGINE,HUM.REC.ANLOG 100 UNIT/ML INSULN.PEN 22 UNIT SUBCUT (08:18)
[2022-05-06] MEDS: AMLODIPINE 10 MG TABLET PO (07:52)
[2022-05-06] MEDS: ASPIRIN EC 325 MG TABLET PO (07:52)
[2022-05-06] MEDS: FUROSEMIDE 40 MG TABLET 20 MG PO (07:53)
[2022-05-06] MEDS: BUSPIRONE 10 MG TABLET PO ×2 (07:53→15:31)
[2022-05-06] MEDS: FLUOXETINE HCL 40 MG CAPSULE PO (07:53)
[2022-05-06] MEDS: FLUOXETINE HCL 20 MG CAPSULE PO (07:53)
[2022-05-06] MEDS: METOPROLOL TARTRATE 50 MG TABLET PO ×2 (07:54→15:32)
[2022-05-06] MEDS: lisinopriL 40 MG TABLET PO (07:54)
[2022-05-06] MEDS: PRESERVISION AREDS 1 EACH PO ×2 (07:54→15:32)
[2022-05-06] MEDS: ROSUVASTATIN CALCIUM 20 MG TABLET PO (07:55)
[2022-05-06] MEDS: POTASSIUM CHLORIDE 20 MEQ TAB.ER.PRT 40 MEQ PO ×2 (07:55→15:32)
[2022-05-06] MEDS: TRAMADOL HCL 50 MG TABLET PO ×3 (07:58→19:26)
[2022-05-06] MEDS: INSULIN GLARGINE,HUM.REC.ANLOG 100 UNIT/ML INSULN.PEN 22 UNIT SUBCUT (08:18)
[2022-05-07] MEDS: lisinopriL 40 MG TABLET PO (07:36)
[2022-05-07] MEDS: FLUOXETINE HCL 20 MG CAPSULE PO (07:36)
[2022-05-07] MEDS: FUROSEMIDE 40 MG TABLET 20 MG PO (07:36)
[2022-05-07] MEDS: METOPROLOL TARTRATE 50 MG TABLET PO ×2 (07:36→16:03)
[2022-05-07] MEDS: PRESERVISION AREDS 1 EACH PO ×2 (07:38→16:03)
[2022-05-07] MEDS: POTASSIUM CHLORIDE 20 MEQ TAB.ER.PRT 40 MEQ PO ×2 (07:39→16:03)
[2022-05-07] MEDS: TRAMADOL HCL 50 MG TABLET PO ×3 (07:41→19:42)
[2022-05-07] MEDS: ASPIRIN EC 325 MG TABLET PO (07:41)
[2022-05-07] MEDS: AMLODIPINE 10 MG TABLET PO (07:41)
[2022-05-07] MEDS: ROSUVASTATIN CALCIUM 20 MG TABLET PO (07:41)
[2022-05-07] MEDS: FLUOXETINE HCL 40 MG CAPSULE PO (07:42)
[2022-05-07] MEDS: BUSPIRONE 10 MG TABLET PO ×2 (07:42→16:03)
[2022-05-07] MEDS: INSULIN GLARGINE,HUM.REC.ANLOG 100 UNIT/ML INSULN.PEN 22 UNIT SUBCUT (07:53)
[2022-05-07] MEDS: NYSTATIN POWDER 1 APPLIC TOPICAL ×2 (11:14→21:27)
[2022-05-07] MEDS: BACITRACIN OINTMENT BULK TUBE 1 APPLIC TOPICAL (21:31)
--- NOTE | 2022-05-07 22:26 | PC.NURSE ---
Skin Concern: Reddened area under abdominal fold noted - PRN Nystatin applied. Also, PRN Bacitracin applied around stoma site due to foul smell.
[2022-05-08] MEDS: AMLODIPINE 10 MG TABLET PO (07:30)
[2022-05-08] MEDS: FLUOXETINE HCL 40 MG CAPSULE PO (07:30)
[2022-05-08] MEDS: ASPIRIN EC 325 MG TABLET PO (07:30)
[2022-05-08] MEDS: BUSPIRONE 10 MG TABLET PO ×2 (07:30→15:24)
[2022-05-08] MEDS: lisinopriL 40 MG TABLET PO (07:31)
[2022-05-08] MEDS: METOPROLOL TARTRATE 50 MG TABLET PO ×2 (07:31→15:24)
[2022-05-08] MEDS: FLUOXETINE HCL 20 MG CAPSULE PO (07:31)
[2022-05-08] MEDS: FUROSEMIDE 40 MG TABLET 20 MG PO (07:31)
[2022-05-08] MEDS: POTASSIUM CHLORIDE 20 MEQ TAB.ER.PRT 40 MEQ PO ×2 (07:32→15:24)
[2022-05-08] MEDS: ROSUVASTATIN CALCIUM 20 MG TABLET PO (07:32)
[2022-05-08] MEDS: TRAMADOL HCL 50 MG TABLET PO ×3 (07:32→20:46)
[2022-05-08] MEDS: PRESERVISION AREDS 1 EACH PO ×2 (07:32→15:24)
[2022-05-08] MEDS: INSULIN GLARGINE,HUM.REC.ANLOG 100 UNIT/ML INSULN.PEN 22 UNIT SUBCUT (08:27)
[2022-05-08] MEDS: NYSTATIN POWDER 1 APPLIC TOPICAL (20:45)
[2022-05-09] MEDS: AMLODIPINE 10 MG TABLET PO (07:13)
[2022-05-09] MEDS: BUSPIRONE 10 MG TABLET PO ×2 (07:13→15:47)
[2022-05-09] MEDS: ASPIRIN EC 325 MG TABLET PO (07:13)
[2022-05-09] MEDS: FLUOXETINE HCL 40 MG CAPSULE PO (07:13)
[2022-05-09] MEDS: FLUOXETINE HCL 20 MG CAPSULE PO (07:13)
[2022-05-09] MEDS: INSULIN GLARGINE,HUM.REC.ANLOG 100 UNIT/ML INSULN.PEN 22 UNIT SUBCUT (07:13)
[2022-05-09] MEDS: METOPROLOL TARTRATE 50 MG TABLET PO ×2 (07:14→15:48)
[2022-05-09] MEDS: lisinopriL 40 MG TABLET PO (07:14)
[2022-05-09] MEDS: POTASSIUM CHLORIDE 20 MEQ TAB.ER.PRT 40 MEQ PO ×2 (07:14→15:48)
[2022-05-09] MEDS: PRESERVISION AREDS 1 EACH PO ×2 (07:14→15:48)
[2022-05-09] MEDS: ROSUVASTATIN CALCIUM 20 MG TABLET PO (07:14)
[2022-05-09] MEDS: TRAMADOL HCL 50 MG TABLET PO ×3 (07:14→20:29)
[2022-05-09] MEDS: FUROSEMIDE 40 MG TABLET 20 MG PO (07:14)
[2022-05-09 15:00] VITALS: BP 163/84; PULSE 61; RESP 20; TEMP 36.4; O2SAT 97
[2022-05-09 16:00] VITALS: BMI 33.5
[2022-05-09] MEDS: NYSTATIN POWDER 1 APPLIC TOPICAL (20:29)
[2022-05-10] MEDS: AMLODIPINE 10 MG TABLET PO (07:27)
[2022-05-10] MEDS: ASPIRIN EC 325 MG TABLET PO (07:27)
[2022-05-10] MEDS: BUSPIRONE 10 MG TABLET PO ×2 (07:28→15:01)
[2022-05-10] MEDS: FLUOXETINE HCL 20 MG CAPSULE PO (07:28)
[2022-05-10] MEDS: FLUOXETINE HCL 40 MG CAPSULE PO (07:28)
[2022-05-10] MEDS: METOPROLOL TARTRATE 50 MG TABLET PO ×2 (07:29→15:01)
[2022-05-10] MEDS: FUROSEMIDE 40 MG TABLET 20 MG PO (07:29)
[2022-05-10] MEDS: lisinopriL 40 MG TABLET PO (07:29)
[2022-05-10] MEDS: ROSUVASTATIN CALCIUM 20 MG TABLET PO (07:30)
[2022-05-10] MEDS: POTASSIUM CHLORIDE 20 MEQ TAB.ER.PRT 40 MEQ PO ×2 (07:30→15:02)
[2022-05-10] MEDS: PRESERVISION AREDS 1 EACH PO ×2 (07:30→15:02)
[2022-05-10] MEDS: TRAMADOL HCL 50 MG TABLET PO ×3 (07:33→19:58)
[2022-05-10] MEDS: INSULIN GLARGINE,HUM.REC.ANLOG 100 UNIT/ML INSULN.PEN 22 UNIT SUBCUT (08:07)
[2022-05-10] MEDS: NYSTATIN POWDER 1 APPLIC TOPICAL (10:54)
--- NOTE | 2022-05-11 01:56 | PC.NURSE ---
WEEKLY CHARTING - WEEK 2: Vital signs reviewed. Blood pressures are hypertensive. Temporary and comprehensive care plan reviewed with no changes made. Requires assist of 1 with bed mobility. Has half side rails for positioning. Refuses to reposition side to side through the night. Utilizes pressure relieving cushion in bed and wheelchair. Assist of 1 with EZ stand for all transfers. Does not get out of bed at night. Resident is non-ambulatory. Assist of 1 to propel w/c to all destinations. At high risk for falls. Current fall interventions: gripper sock for all transfers, bed in low position, call light within reach.
--- NOTE | 2022-05-11 06:56 | PC.NURSE ---
Week #2 - Mobility: Care plan reviewed, no changes made. Nothing added to temporary care plan. VS reviewed, has few episodes of elevated BP. Is on BP medications. Continue VS check weekly, refer as needed. Resident is non ambulatory. Needs medi stand, one assist for all transfers. Staff wheels to all destinations. When in bed is able to shift position for herself. Top side rails up in bed to aid for positioning. No alarms. Fall: No falls the past month. Remains a high fall risk according to assessment done on 05/04/22.
[2022-05-11] MEDS: ASPIRIN EC 325 MG TABLET PO (07:32)
[2022-05-11] MEDS: BUSPIRONE 10 MG TABLET PO ×2 (07:32→15:36)
[2022-05-11] MEDS: FLUOXETINE HCL 20 MG CAPSULE PO (07:32)
[2022-05-11] MEDS: FLUOXETINE HCL 40 MG CAPSULE PO (07:32)
[2022-05-11] MEDS: AMLODIPINE 10 MG TABLET PO (07:32)
[2022-05-11] MEDS: FUROSEMIDE 40 MG TABLET 20 MG PO (07:32)
[2022-05-11] MEDS: lisinopriL 40 MG TABLET PO (07:33)
[2022-05-11] MEDS: PRESERVISION AREDS 1 EACH PO ×2 (07:33→15:37)
[2022-05-11] MEDS: METOPROLOL TARTRATE 50 MG TABLET PO ×2 (07:33→15:36)
[2022-05-11] MEDS: ROSUVASTATIN CALCIUM 20 MG TABLET PO (07:34)
[2022-05-11] MEDS: POTASSIUM CHLORIDE 20 MEQ TAB.ER.PRT 40 MEQ PO ×2 (07:34→15:37)
[2022-05-11] MEDS: TRAMADOL HCL 50 MG TABLET PO ×3 (07:38→20:01)
[2022-05-11] MEDS: INSULIN GLARGINE,HUM.REC.ANLOG 100 UNIT/ML INSULN.PEN 22 UNIT SUBCUT (08:05)
[2022-05-11] MEDS: NYSTATIN POWDER 1 APPLIC TOPICAL (21:34)
[2022-05-12] MEDS: AMLODIPINE 10 MG TABLET PO (07:35)
[2022-05-12] MEDS: FUROSEMIDE 40 MG TABLET 20 MG PO (07:36)
[2022-05-12] MEDS: FLUOXETINE HCL 40 MG CAPSULE PO (07:36)
[2022-05-12] MEDS: ASPIRIN EC 325 MG TABLET PO (07:36)
[2022-05-12] MEDS: BUSPIRONE 10 MG TABLET PO ×2 (07:36→15:00)
[2022-05-12] MEDS: FLUOXETINE HCL 20 MG CAPSULE PO (07:36)
[2022-05-12] MEDS: lisinopriL 40 MG TABLET PO (07:37)
[2022-05-12] MEDS: METOPROLOL TARTRATE 50 MG TABLET PO ×2 (07:37→15:00)
[2022-05-12] MEDS: PRESERVISION AREDS 1 EACH PO ×2 (07:37→15:00)
[2022-05-12] MEDS: ROSUVASTATIN CALCIUM 20 MG TABLET PO (07:39)
[2022-05-12] MEDS: TRAMADOL HCL 50 MG TABLET PO ×3 (07:39→19:49)
[2022-05-12] MEDS: POTASSIUM CHLORIDE 20 MEQ TAB.ER.PRT 40 MEQ PO ×2 (07:39→15:00)
[2022-05-12] MEDS: INSULIN GLARGINE,HUM.REC.ANLOG 100 UNIT/ML INSULN.PEN 22 UNIT SUBCUT (07:59)
[2022-05-12] MEDS: NYSTATIN POWDER 1 APPLIC TOPICAL (08:00)
[2022-05-13] MEDS: ASPIRIN EC 325 MG TABLET PO (07:36)
[2022-05-13] MEDS: AMLODIPINE 10 MG TABLET PO (07:36)
[2022-05-13] MEDS: BUSPIRONE 10 MG TABLET PO ×2 (07:37→15:01)
[2022-05-13] MEDS: FLUOXETINE HCL 20 MG CAPSULE PO (07:37)
[2022-05-13] MEDS: FLUOXETINE HCL 40 MG CAPSULE PO (07:37)
[2022-05-13] MEDS: METOPROLOL TARTRATE 50 MG TABLET PO ×2 (07:38→15:01)
[2022-05-13] MEDS: PRESERVISION AREDS 1 EACH PO ×2 (07:38→15:01)
[2022-05-13] MEDS: FUROSEMIDE 40 MG TABLET 20 MG PO (07:38)
[2022-05-13] MEDS: lisinopriL 40 MG TABLET PO (07:38)
[2022-05-13] MEDS: ROSUVASTATIN CALCIUM 20 MG TABLET PO (07:38)
[2022-05-13] MEDS: POTASSIUM CHLORIDE 20 MEQ TAB.ER.PRT 40 MEQ PO ×2 (07:38→15:01)
[2022-05-13] MEDS: TRAMADOL HCL 50 MG TABLET PO ×3 (07:38→20:29)
[2022-05-13] MEDS: INSULIN GLARGINE,HUM.REC.ANLOG 100 UNIT/ML INSULN.PEN 22 UNIT SUBCUT (08:17)
[2022-05-13] MEDS: NYSTATIN POWDER 1 APPLIC TOPICAL ×2 (10:12→21:00)
[2022-05-14] MEDS: AMLODIPINE 10 MG TABLET PO (07:31)
[2022-05-14] MEDS: BUSPIRONE 10 MG TABLET PO ×2 (07:31→15:34)
[2022-05-14] MEDS: ASPIRIN EC 325 MG TABLET PO (07:31)
[2022-05-14] MEDS: TRAMADOL HCL 50 MG TABLET PO ×3 (07:32→19:21)
[2022-05-14] MEDS: ROSUVASTATIN CALCIUM 20 MG TABLET PO (07:32)
[2022-05-14] MEDS: FUROSEMIDE 40 MG TABLET 20 MG PO (07:32)
[2022-05-14] MEDS: METOPROLOL TARTRATE 50 MG TABLET PO ×2 (07:32→15:34)
[2022-05-14] MEDS: lisinopriL 40 MG TABLET PO (07:32)
[2022-05-14] MEDS: FLUOXETINE HCL 40 MG CAPSULE PO (07:32)
[2022-05-14] MEDS: FLUOXETINE HCL 20 MG CAPSULE PO (07:32)
[2022-05-14] MEDS: PRESERVISION AREDS 1 EACH PO ×2 (07:32→15:34)
[2022-05-14] MEDS: POTASSIUM CHLORIDE 20 MEQ TAB.ER.PRT 40 MEQ PO ×2 (07:32→15:34)
[2022-05-14] MEDS: INSULIN GLARGINE,HUM.REC.ANLOG 100 UNIT/ML INSULN.PEN 22 UNIT SUBCUT (08:21)
--- NOTE | 2022-05-14 21:48 | PC.NURSE ---
Resident c/o sharp pain on buttocks and near anus. Has raised area on (R) buttock. Mepilex placed for comfort. Was given scheduled Tramadol at time of complaint. Reassessed and resident is sleeping.
[2022-05-15] MEDS: FLUOXETINE HCL 40 MG CAPSULE PO (07:35)
[2022-05-15] MEDS: ASPIRIN EC 325 MG TABLET PO (07:35)
[2022-05-15] MEDS: BUSPIRONE 10 MG TABLET PO ×2 (07:35→15:38)
[2022-05-15] MEDS: AMLODIPINE 10 MG TABLET PO (07:35)
[2022-05-15] MEDS: FLUOXETINE HCL 20 MG CAPSULE PO (07:36)
[2022-05-15] MEDS: FUROSEMIDE 40 MG TABLET 20 MG PO (07:36)
[2022-05-15] MEDS: lisinopriL 40 MG TABLET PO (07:36)
[2022-05-15] MEDS: METOPROLOL TARTRATE 50 MG TABLET PO ×2 (07:36→15:38)
[2022-05-15] MEDS: PRESERVISION AREDS 1 EACH PO ×2 (07:36→15:39)
[2022-05-15] MEDS: POTASSIUM CHLORIDE 20 MEQ TAB.ER.PRT 40 MEQ PO ×2 (07:37→15:39)
[2022-05-15] MEDS: ROSUVASTATIN CALCIUM 20 MG TABLET PO (07:38)
[2022-05-15] MEDS: TRAMADOL HCL 50 MG TABLET PO ×3 (07:38→20:15)
[2022-05-15] MEDS: INSULIN GLARGINE,HUM.REC.ANLOG 100 UNIT/ML INSULN.PEN 22 UNIT SUBCUT (08:13)
[2022-05-15] MEDS: NYSTATIN POWDER 1 APPLIC TOPICAL (20:15)
[2022-05-16] MEDS: ASPIRIN EC 325 MG TABLET PO (07:40)
[2022-05-16] MEDS: BUSPIRONE 10 MG TABLET PO ×2 (07:40→16:02)
[2022-05-16] MEDS: AMLODIPINE 10 MG TABLET PO (07:40)
[2022-05-16] MEDS: FUROSEMIDE 40 MG TABLET 20 MG PO (07:41)
[2022-05-16] MEDS: lisinopriL 40 MG TABLET PO (07:41)
[2022-05-16] MEDS: METOPROLOL TARTRATE 50 MG TABLET PO ×2 (07:41→16:03)
[2022-05-16] MEDS: TRAMADOL HCL 50 MG TABLET PO ×3 (07:42→20:05)
[2022-05-16] MEDS: ROSUVASTATIN CALCIUM 20 MG TABLET PO (07:42)
[2022-05-16] MEDS: PRESERVISION AREDS 1 EACH PO ×2 (07:42→16:04)
[2022-05-16] MEDS: POTASSIUM CHLORIDE 20 MEQ TAB.ER.PRT 40 MEQ PO ×2 (07:42→16:04)
[2022-05-16] MEDS: FLUOXETINE HCL 40 MG CAPSULE PO (07:42)
[2022-05-16] MEDS: FLUOXETINE HCL 20 MG CAPSULE PO (07:43)
[2022-05-16] MEDS: INSULIN GLARGINE,HUM.REC.ANLOG 100 UNIT/ML INSULN.PEN 22 UNIT SUBCUT (08:23)
--- NOTE | 2022-05-16 09:49 | PC.SPIRITC ---
Analytical Data Scientist provided visit for support and connection.
[2022-05-16] MEDS: NYSTATIN POWDER 1 APPLIC TOPICAL (10:30)
--- NOTE | 2022-05-16 10:51 | PC.NURSE ---
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 She also requested a dentist. Will let daughter know to schedule.
--- NOTE | 2022-05-16 11:00 | PC.NURSE ---
Depression: Resident informed the Health department surveyors that she is depressed, Shilpi acknowledge and informed N/P to refer to social service.
--- NOTE | 2022-05-16 14:13 | PC.NURSE ---
CARE CONFERENCE: meeting held with care team members from nursing, dietary, activities and licensed clinical social worker. Residents family not present, did speak to daughter Carrie in regards to residents request to see dentist and therapist. Daughter stated if resident wants to see a dentist she will move forward with request. SS to set up transport. Resident present. During care conference discussed with resident her want to see dentist and therapy. SS explained to resident that dentist appointment can be scheduled outside of facility and transport can be set up with a van service. During that conversation resident stated she does not want to see a dentist at this time and is unsure if the pain she has during brushing her teeth is at the gum line or in the teeth. SS is going to set up talk therapy appointment for resident per her request. Nursing reviewed that resident continues to need 1 ANISH extensive assistance with dressing, grooming, mobility and bathing.? Prolonged chronic weakness. Propelled by staff in wheelchair. Resident continues to come out for meals and activities. EZ stand used for transfers. Resident has a s/p placed. Resident able to feed self after setup. POLST reviewed. Is DNR/DNI. Uses no restraints.? Does use 2 side rails up to assist with positioning.? Is not able to self admin own medications due to dementia. Medication list given to resident with dx and put in folder in room per residents request. Vulnerability- is at risk for being harmed. Resident pleased with care at this time. There are no discharge plans, long-term care.?
--- NOTE | 2022-05-16 14:34 | PC.SOCIAL ---
Resident's care conference was held today. Resident has remained stable and mood is stable. Resident expressed to state surveyor helper rod she wanted to see a therapist and a dentist. Spoke with resident and offered to set up a dental appointment with a local dentist for resident in town and to set up medical transport. Also updated resident's daughter Katarzyna that resident expressed wanting to see a dentist. Resident in care conference declined to have a dentist appointment set up. Reminded resident she used to see the in-house mental health therapist Kiesha through [facility]. Resident at the last care conference in January had requested not to see a therapist anymore. Offered to send an email to Kiesha at [facility] to start seeing resident again when she return soon from maternity leave. Resident was pleased with this plan.
[2022-05-16 15:00] VITALS: BP 143/76; PULSE 55; RESP 16; TEMP 36.4; O2SAT 96
[2022-05-17] MEDS: AMLODIPINE 10 MG TABLET PO (07:31)
[2022-05-17] MEDS: ASPIRIN EC 325 MG TABLET PO (07:31)
[2022-05-17] MEDS: FLUOXETINE HCL 40 MG CAPSULE PO (07:35)
[2022-05-17] MEDS: lisinopriL 40 MG TABLET PO (07:35)
[2022-05-17] MEDS: FUROSEMIDE 40 MG TABLET 20 MG PO (07:35)
[2022-05-17] MEDS: BUSPIRONE 10 MG TABLET PO ×2 (07:35→15:53)
[2022-05-17] MEDS: FLUOXETINE HCL 20 MG CAPSULE PO (07:35)
[2022-05-17] MEDS: METOPROLOL TARTRATE 50 MG TABLET PO ×2 (07:35→15:53)
[2022-05-17] MEDS: POTASSIUM CHLORIDE 20 MEQ TAB.ER.PRT 40 MEQ PO ×2 (07:36→15:53)
[2022-05-17] MEDS: TRAMADOL HCL 50 MG TABLET PO ×3 (07:36→20:30)
[2022-05-17] MEDS: PRESERVISION AREDS 1 EACH PO ×2 (07:36→15:53)
[2022-05-17] MEDS: ROSUVASTATIN CALCIUM 20 MG TABLET PO (07:36)
[2022-05-17] MEDS: INSULIN GLARGINE,HUM.REC.ANLOG 100 UNIT/ML INSULN.PEN 22 UNIT SUBCUT (07:44)
[2022-05-17 22:58] VITALS: BMI 33.0
--- NOTE | 2022-05-18 02:30 | PC.NURSE ---
WEEKLY CHARTING - WEEK 3: Vital signs reviewed. Blood pressures slightly elevated. Currently receives antihypertensives. Temporary and comprehensive care plan reviewed with no changes. Has suprapubic catheter in place r/t neurogenic bladder. Urine leaks from urethra at times. Dependent for catheter care. Catheter is changed per orders. Is able to utilize call light for toilet when needed. Assist of 1 with EZ stand for transfers. Staff assist with edward-care and clothing adjustment. Per resident request, is not disturbed during the NOC. Usually continent of bowels with occasional incontinent episodes. Per weekly skin assessment documentation, resident has edema to BLE. Wears TEDs. Dressing change daily to suprapubic insertion site.
--- NOTE | 2022-05-18 06:42 | PC.NURSE ---
Week #3 - Toileting: Care plan reviewed, no changes made. Nothing added to temporary care plan. Resident has a supra pubic catheter connected to the leg bag during the day, emptied by staff every shift.Catheter changed monthly by staff. Is usually continent of bowels, had some occasional incontinence. Needs one assist with all toileting transfers, pericares, and clothing adjustment. Transfers with a medi stand. Is able to call for toilet when needed. VS reviewed, with slightly elevated BP's. Is on hypertensive medications. Continue to monitor. Skin: Dressing changes to supra pubic stoma site QHS. Wears teds for bilateral LLE edema. Skin is checked during cares and on bath day.
[2022-05-18] MEDS: AMLODIPINE 10 MG TABLET PO (07:15)
[2022-05-18] MEDS: TRAMADOL HCL 50 MG TABLET PO ×3 (07:15→20:30)
[2022-05-18] MEDS: FLUOXETINE HCL 40 MG CAPSULE PO (07:16)
[2022-05-18] MEDS: FUROSEMIDE 40 MG TABLET 20 MG PO (07:16)
[2022-05-18] MEDS: ASPIRIN EC 325 MG TABLET PO (07:16)
[2022-05-18] MEDS: FLUOXETINE HCL 20 MG CAPSULE PO (07:16)
[2022-05-18] MEDS: BUSPIRONE 10 MG TABLET PO ×2 (07:16→15:13)
[2022-05-18] MEDS: POTASSIUM CHLORIDE 20 MEQ TAB.ER.PRT 40 MEQ PO ×2 (07:17→15:13)
[2022-05-18] MEDS: PRESERVISION AREDS 1 EACH PO ×2 (07:17→15:13)
[2022-05-18] MEDS: lisinopriL 40 MG TABLET PO (07:17)
[2022-05-18] MEDS: METOPROLOL TARTRATE 50 MG TABLET PO ×2 (07:17→15:13)
[2022-05-18] MEDS: ROSUVASTATIN CALCIUM 20 MG TABLET PO (07:18)
[2022-05-18] MEDS: INSULIN GLARGINE,HUM.REC.ANLOG 100 UNIT/ML INSULN.PEN 22 UNIT SUBCUT (08:19)
[2022-05-19] MEDS: FLUOXETINE HCL 20 MG CAPSULE PO (07:12)
[2022-05-19] MEDS: ASPIRIN EC 325 MG TABLET PO (07:12)
[2022-05-19] MEDS: FLUOXETINE HCL 40 MG CAPSULE PO (07:12)
[2022-05-19] MEDS: AMLODIPINE 10 MG TABLET PO (07:12)
[2022-05-19] MEDS: BUSPIRONE 10 MG TABLET PO ×2 (07:12→15:21)
[2022-05-19] MEDS: lisinopriL 40 MG TABLET PO (07:13)
[2022-05-19] MEDS: FUROSEMIDE 40 MG TABLET 20 MG PO (07:13)
[2022-05-19] MEDS: PRESERVISION AREDS 1 EACH PO ×2 (07:13→15:21)
[2022-05-19] MEDS: METOPROLOL TARTRATE 50 MG TABLET PO ×2 (07:13→15:21)
[2022-05-19] MEDS: POTASSIUM CHLORIDE 20 MEQ TAB.ER.PRT 40 MEQ PO ×2 (07:14→15:21)
[2022-05-19] MEDS: ROSUVASTATIN CALCIUM 20 MG TABLET PO (07:14)
[2022-05-19] MEDS: TRAMADOL HCL 50 MG TABLET PO ×3 (07:19→19:55)
[2022-05-19] MEDS: INSULIN GLARGINE,HUM.REC.ANLOG 100 UNIT/ML INSULN.PEN 22 UNIT SUBCUT (08:10)
[2022-05-20] MEDS: AMLODIPINE 10 MG TABLET PO (07:43)
[2022-05-20] MEDS: BUSPIRONE 10 MG TABLET PO ×2 (07:44→16:24)
[2022-05-20] MEDS: ASPIRIN EC 325 MG TABLET PO (07:44)
[2022-05-20] MEDS: FLUOXETINE HCL 40 MG CAPSULE PO (07:44)
[2022-05-20] MEDS: FLUOXETINE HCL 20 MG CAPSULE PO (07:44)
[2022-05-20] MEDS: FUROSEMIDE 40 MG TABLET 20 MG PO (07:44)
[2022-05-20] MEDS: POTASSIUM CHLORIDE 20 MEQ TAB.ER.PRT 40 MEQ PO ×2 (07:45→16:24)
[2022-05-20] MEDS: lisinopriL 40 MG TABLET PO (07:45)
[2022-05-20] MEDS: PRESERVISION AREDS 1 EACH PO ×2 (07:45→16:24)
[2022-05-20] MEDS: ROSUVASTATIN CALCIUM 20 MG TABLET PO (07:45)
[2022-05-20] MEDS: METOPROLOL TARTRATE 50 MG TABLET PO ×2 (07:45→16:24)
[2022-05-20] MEDS: TRAMADOL HCL 50 MG TABLET PO ×3 (07:49→19:32)
[2022-05-20] MEDS: INSULIN GLARGINE,HUM.REC.ANLOG 100 UNIT/ML INSULN.PEN 22 UNIT SUBCUT (08:43)
[2022-05-20 15:00] VITALS: BP 158/73; PULSE 67; PULSE 72; RESP 16; TEMP 36.4; O2SAT 99
--- NOTE | 2022-05-20 15:08 | PC.NURSE ---
Fall Incident: Resident was observed sitting on the floor next to her bedroom recliner and the window, at 1445. Appropriate fall To Do List will be completed.
--- NOTE | 2022-05-20 15:13 | PC.NURSE ---
Family Update:Resident's daughter, Katarzyna Camacho, was notified and updated on mom's fall incident via telephone, at 1506.
--- NOTE | 2022-05-20 15:34 | LTC.FALL ---
[facility] Fall Note: o Fall Date: 05/20/22 o Fall Time: 1445 o What happened? Unknown. o Who found the resident and who responded? Ana Luisa found her, Sadaf and Christiano responded. o What was the resident doing? Unknown. o How the resident was found (knees, left side, arm under them), any hazards (cords, objects, nonskid slippers) brakes on? Proper equipment? Resident was observed sitting on the floor next to her bedroom recliner and near the window. o Did you assess for head trauma, spinal injuries, skeletal injuries, neurological changes and status, and head and neck pain? What did you find? Yes. No injuries noted at this time. o Did you assess ROM in shoulders, elbows, hips, knees, any other affected areas, unless there is suspected spinal injury. Yes. Able to move extremities as normal. o Did you Assess for pain or discomfort? Yes. Resident denies pain or discomfort at this time. Will continue to monitor. o What are the injuries and how are they being treated? No injuries at this time. o How was the resident transferred from the floor? Gissell lift with 3 assist. o Did you call the MD or put a note in the AUTOMATIC SHIRRING MACHINE OPERATOR book? Yes. o Enter vital signs. BP-151/77; Pulse-72; Temp-97.5 ; Resp-16; O2 Sat-96% o Did you notify family? Yes. o What was the root cause of the fall? Why did it happen? o Create an IMMEDIATE INTERVENTION to ensure that this won't immediately happen again. (Put in temporary care plan too) o Complete Safety report and huddle (now one form) o If resident is seen in ED or fractured something, note that you started a [facility] Report process. Instructions are at the East nurse's desk in a red binder labeled [facility] report.
[2022-05-20 15:53] VITALS: BP 151/77; PULSE 72; RESP 16; TEMP 36.4; O2SAT 96
--- NOTE | 2022-05-20 15:59 | PC.NURSE ---
Fall follow-up: Vital signs and neuro assessment completed. PERRLA intact, Peripheral hinton full. Denies blurriness, discomfort, or pain. No vomiting episode reported or noted. Level of consciousness remains at baseline, and vital signs are within resident's normal ranges. No concerns so far. Resident is back in her recliner napping at this time.
[2022-05-20 17:10] VITALS: BP 151/77; PULSE 72; RESP 16; TEMP 36.4; O2SAT 96
--- NOTE | 2022-05-20 17:21 | PC.NURSE ---
Fall follow-up: Vital signs and neuro assessment completed. PERRLA intact, Peripheral hinton full. Denies blurriness, discomfort, or pain. No vomiting episode reported or noted. Level of consciousness remains at baseline, and vital signs are within resident's normal ranges. Resident is up in her wheel chair; and, in the dinning room for supper.
[2022-05-20 17:23] VITALS: BP 132/67; PULSE 68; RESP 16; TEMP 36; O2SAT 99
[2022-05-20 21:00] VITALS: BP 143/77; PULSE 65; PULSE 71; RESP 16; TEMP 37.1; O2SAT 98
--- NOTE | 2022-05-20 21:28 | PC.NURSE ---
Fall follow-up: Vital signs obtained and recorded under Work List. Neuro assessment completed - PERRLA intact, peripheral hinton full. Denies blurriness, and or pain. No vomiting episode reported or noted. Level of consciousness remains at baseline. No new concerns relating to fall incident noted at this time. Resident is sleeping.
[2022-05-21 01:00] VITALS: BP 139/81; PULSE 66; RESP 18; O2SAT 98
--- NOTE | 2022-05-21 01:53 | PC.NURSE ---
FALL FOLLOW-UP: Vital signs-98.1-66-18-139/81-98% on RA. Denies pain. Neuros intact. ROM Per baseline. Denies any headache, blurred vision, or nausea/vomiting.
[2022-05-21 05:00] VITALS: BP 142/76; PULSE 68; RESP 16; TEMP 36.9; O2SAT 97
--- NOTE | 2022-05-21 05:36 | PC.NURSE ---
FALL FOLLOW-UP: Vital signs- 98.4-68-16-142/76-97% on RA. Denies any pain. ROM per baseline. Neuros intact. Orientation per baseline. Benedicto headache, blurred vision, or nausea.
[2022-05-21] MEDS: lisinopriL 40 MG TABLET PO (07:32)
[2022-05-21] MEDS: POTASSIUM CHLORIDE 20 MEQ TAB.ER.PRT 40 MEQ PO ×2 (07:32→15:20)
[2022-05-21] MEDS: FUROSEMIDE 40 MG TABLET 20 MG PO (07:32)
[2022-05-21] MEDS: AMLODIPINE 10 MG TABLET PO (07:32)
[2022-05-21] MEDS: METOPROLOL TARTRATE 50 MG TABLET PO ×2 (07:32→15:19)
[2022-05-21] MEDS: FLUOXETINE HCL 20 MG CAPSULE PO (07:32)
[2022-05-21] MEDS: PRESERVISION AREDS 1 EACH PO ×2 (07:32→15:20)
[2022-05-21] MEDS: BUSPIRONE 10 MG TABLET PO ×2 (07:33→15:19)
[2022-05-21] MEDS: ASPIRIN EC 325 MG TABLET PO (07:33)
[2022-05-21] MEDS: FLUOXETINE HCL 40 MG CAPSULE PO (07:33)
[2022-05-21] MEDS: ROSUVASTATIN CALCIUM 20 MG TABLET PO (07:33)
[2022-05-21] MEDS: TRAMADOL HCL 50 MG TABLET PO ×3 (07:33→19:35)
[2022-05-21] MEDS: INSULIN GLARGINE,HUM.REC.ANLOG 100 UNIT/ML INSULN.PEN 22 UNIT SUBCUT (07:56)
[2022-05-21 09:00] VITALS: BP 128/73; PULSE 95; RESP 18; TEMP 36.5; O2SAT 96
--- NOTE | 2022-05-21 09:33 | PC.NURSE ---
Fall follow-up at 0900: VS 128/73,P 65, R18, T97.7, O2 sat's 96 on RA.? Neuro assessment PERRLA. Resident able to move extremities per his baseline and complains pain to Rt knee, applied ice and given schedule Ultam at 0715 which was effective upon follow ups. Otherwise She denied headache , blurriness or nausea.?Resident ate breakfast 100% in DR.? Resident is resting quietly in her room at time. Will continues to monitor.
[2022-05-21 13:00] VITALS: BP 132/72; PULSE 65; RESP 18; TEMP 36.4; O2SAT 95
--- NOTE | 2022-05-21 13:25 | PC.NURSE ---
Fall follow-up at 1300: VSS and documented, see vitals.?Resident denied pain, headache, blurry vision. Neuro assessment: PERRLA. Resident able to move all 4 extremities per baseline.?No new injury or nonverbal indication of pain/discomfort noted or reported. Resident eating lunch in her room at this time. Will continues to monitor.
[2022-05-21 16:50] VITALS: BP 159/69; PULSE 66; RESP 18; TEMP 36.6; O2SAT 66
--- NOTE | 2022-05-21 17:00 | PC.NURSE ---
Fall follow-up: Vital signs obtained and recorded under Work List. Resident was uncooperative with neuro assessment and ROM at this time. No vomiting episode reported or noted. Resident sounds confused and refused cares. Complains of pain to R-knee - Ice pack/ warm blanket applied, and scheduled Tramadol given. Will continue to monitor.
[2022-05-21 21:00] VITALS: BP 144/78; PULSE 68; RESP 18; TEMP 37; O2SAT 96
--- NOTE | 2022-05-21 21:34 | PC.NURSE ---
Fall follow-up: Vital signs obtained and recorded under Work List. Neuro assessment completed - PERRLA intact, peripheral hinton full. Resident denies pain at this time, and no report of blurriness. Strength in hand grasp of the left arm, but weakness in the right hand due to dx stroke. No vomiting episode reported or noted. Level of consciousness back to baseline. No new concerns at this time. Resident is sleeping.
[2022-05-22 01:00] VITALS: BP 142/73; PULSE 71; RESP 18; TEMP 36.9; O2SAT 95
--- NOTE | 2022-05-22 01:34 | PC.NURSE ---
FALL FOLLOW-UP: Vital signs- 98.4-71-18-142/73-95% on RA. Neuros intact. Denies pain when asked with no noted non-verbal s/sx of pain. Hand gasps unequal r/t dx of CVA. Orientation per baseline. Denies headache, blurred vision, or nausea.
[2022-05-22 05:00] VITALS: BP 139/81; PULSE 74; RESP 18; TEMP 36.9; O2SAT 96
--- NOTE | 2022-05-22 05:11 | PC.NURSE ---
FALL FOLLOW-UP: Vital signs- 98.5-74-18-139/81-96% on RA. PERRLA. Neuros intact. Denies pain when asked. ROM per baseline. No c/o headache, nausea, or blurred vision.
[2022-05-22] MEDS: AMLODIPINE 10 MG TABLET PO (07:32)
[2022-05-22] MEDS: BUSPIRONE 10 MG TABLET PO ×2 (07:32→15:38)
[2022-05-22] MEDS: ASPIRIN EC 325 MG TABLET PO (07:32)
[2022-05-22] MEDS: FLUOXETINE HCL 40 MG CAPSULE PO (07:32)
[2022-05-22] MEDS: FUROSEMIDE 40 MG TABLET 20 MG PO (07:33)
[2022-05-22] MEDS: lisinopriL 40 MG TABLET PO (07:33)
[2022-05-22] MEDS: FLUOXETINE HCL 20 MG CAPSULE PO (07:33)
[2022-05-22] MEDS: ROSUVASTATIN CALCIUM 20 MG TABLET PO (07:34)
[2022-05-22] MEDS: PRESERVISION AREDS 1 EACH PO ×2 (07:34→15:38)
[2022-05-22] MEDS: METOPROLOL TARTRATE 50 MG TABLET PO ×2 (07:34→15:38)
[2022-05-22] MEDS: POTASSIUM CHLORIDE 20 MEQ TAB.ER.PRT 40 MEQ PO ×2 (07:34→15:38)
[2022-05-22] MEDS: TRAMADOL HCL 50 MG TABLET PO ×3 (07:42→20:24)
[2022-05-22] MEDS: INSULIN GLARGINE,HUM.REC.ANLOG 100 UNIT/ML INSULN.PEN 22 UNIT SUBCUT (08:24)
[2022-05-22 09:00] VITALS: BP 137/74; PULSE 60; RESP 16; TEMP 36.4; O2SAT 98
--- NOTE | 2022-05-22 10:06 | NUTR.NU ---
Fall follow-up at 0900: VSS and documented. Resident complains minor pain to R knee, given scheduled pain med and applied ice.Otherwise denied headache , blurry vision, nausea.? Neuro assessment: PERRLA. Resident able to move extremities per his baseline and appears to be per usual self.
--- NOTE | 2022-05-22 10:51 | PC.NURSE ---
Fall follow up: Spoke to resident about her fall over the weekend. She stated that she was in her recliner. She was sleeping she woke up and thought she had the strength to stand. Slid down her recliner to the floor. She states her call light was in place. Is having mild pain in right leg at this time. Nurse updated to review pain interventions and assist resident to relieve her pain.
[2022-05-22 13:00] VITALS: BP 138/80; PULSE 60; RESP 18; TEMP 36.5; O2SAT 3
--- NOTE | 2022-05-22 13:38 | PC.NURSE ---
Fall follow-up at 1300: VS 138/80,P 60, R18, T97.7, O2 sat's 97% on RA.? Resident denied any pain inculding to Rt knee pain that usually complains off at this time. Neuro?intact. Resident able to move extremities per baseline. Otherwise She denied headache , blurriness or nausea.?Resident ate both meals in DR 100%.? Resident appears to be per usual self. She is quietly resting in her recliner room at time. Will continues to monitor.
[2022-05-22 17:00] VITALS: BP 150/73; PULSE 59; RESP 16; TEMP 36.4; O2SAT 95
--- NOTE | 2022-05-22 17:00 | PC.NURSE ---
Fall f/u: Resident is in recliner and, states that she would like to come out to dining room for dinner. Residents VS and Neuro checks are within normal limits, resident stated that she does not have any pain.
[2022-05-22 21:00] VITALS: BP 146/71; PULSE 57; RESP 16; TEMP 36.3; O2SAT 97
--- NOTE | 2022-05-22 21:00 | PC.NURSE ---
Fall f/u: Resident in bed sleeping wakes for VS, denies pain. VS and Neuro checks with in normal limits.
[2022-05-23 01:00] VITALS: BP 140/75; PULSE 76; RESP 16; TEMP 36.8; O2SAT 97
--- NOTE | 2022-05-23 01:55 | PC.NURSE ---
FALL FOLLOW-UP: Sleeping soundly, but easy to wake. Vital signs WNL. Neuros intact. ROM per baseline. Denies pain. No headache, blurred vision, or nausea.
[2022-05-23 04:59] VITALS: BP 137/73; PULSE 72; RESP 20; TEMP 36.9; O2SAT 96
--- NOTE | 2022-05-23 05:00 | PC.NURSE ---
FALL FOLLOW-UP: Vital signs WNL and documented. Neuros intact. Denies pain, headache, blurred vision, or nausea. ROM per baseline.
[2022-05-23] MEDS: AMLODIPINE 10 MG TABLET PO (07:48)
[2022-05-23] MEDS: INSULIN GLARGINE,HUM.REC.ANLOG 100 UNIT/ML INSULN.PEN 22 UNIT SUBCUT (07:48)
[2022-05-23] MEDS: ASPIRIN EC 325 MG TABLET PO (07:48)
[2022-05-23] MEDS: FLUOXETINE HCL 20 MG CAPSULE PO (07:49)
[2022-05-23] MEDS: BUSPIRONE 10 MG TABLET PO ×2 (07:49→15:59)
[2022-05-23] MEDS: FLUOXETINE HCL 40 MG CAPSULE PO (07:49)
[2022-05-23] MEDS: FUROSEMIDE 40 MG TABLET 20 MG PO (07:49)
[2022-05-23] MEDS: PRESERVISION AREDS 1 EACH PO ×2 (07:50→15:59)
[2022-05-23] MEDS: lisinopriL 40 MG TABLET PO (07:50)
[2022-05-23] MEDS: METOPROLOL TARTRATE 50 MG TABLET PO ×2 (07:50→15:59)
[2022-05-23] MEDS: TRAMADOL HCL 50 MG TABLET PO ×3 (07:51→20:14)
[2022-05-23] MEDS: POTASSIUM CHLORIDE 20 MEQ TAB.ER.PRT 40 MEQ PO ×2 (07:51→15:59)
[2022-05-23] MEDS: ROSUVASTATIN CALCIUM 20 MG TABLET PO (07:51)
[2022-05-23] MEDS: NYSTATIN POWDER 1 APPLIC TOPICAL (10:15)
[2022-05-23 10:19] VITALS: BP 132/76; PULSE 64; RESP 20; TEMP 36.2; O2SAT 97
--- NOTE | 2022-05-23 10:21 | PC.NURSE ---
Fall F/U : Resident is alert. no c/o headache. Both vitals and neuro are WNL .Pupils are equal and reactive to light. Both hand grasp are equal. No vomiting, ate breakfast 100%
[2022-05-23 13:57] VITALS: BP 138/80; PULSE 70; RESP 20; TEMP 36.4; O2SAT 97
[2022-05-23 17:00] VITALS: BP 144/78; PULSE 60; RESP 16; TEMP 36.6; O2SAT 96
--- NOTE | 2022-05-23 18:34 | PC.NURSE ---
Chair Alarm Dc'd. No longer indicated. Resident does not often try to self transfer herself and explained to designer writer why she previously fell this week.
[2022-05-23 20:33] VITALS: BP 144/78; PULSE 60; RESP 16; TEMP 36.6; O2SAT 96; BMI 33.1
--- NOTE | 2022-05-23 20:40 | PC.NURSE ---
Fall f/u: Resident in wheelchair watching TV in room, has no complaints of pain at this time, VS and Neuro checks are with in normal limits.
--- NOTE | 2022-05-23 20:58 | PC.NURSE ---
Skin: Residents folds have healed, no more redness, intervention completed. Has a patch of redness on back of head. Monitor.
--- NOTE | 2022-05-24 08:11 | PC.PHA ---
Addendum entered by Lorri Ramos 05/24/22 11:08: Medication monitoring : Fluoxetine Comment: Patient continues to have outburst of anger with no none triggers from time to time. Family has conveyed that current polypharmacy is helpful to patient. Suggested Course: No dose GDR recommended at time of this review. Continue to track behaviors and triggers for goal of non-pharm. interventions. Original Note: Pharmacy Note ~ Patient continues on polypharmacy with all current orders having coinciding indication. A dose reduction attempt for either pregabalin, tramadol or fluoxetine could be considered however it has not been successful in the past and may be helping patient's continued stroke recovery. Would certainly attempt one medication at a time for dose reduction.
[2022-05-24] MEDS: ASPIRIN EC 325 MG TABLET PO (08:20)
[2022-05-24] MEDS: AMLODIPINE 10 MG TABLET PO (08:20)
[2022-05-24] MEDS: BUSPIRONE 10 MG TABLET PO ×2 (08:20→15:18)
[2022-05-24] MEDS: FLUOXETINE HCL 20 MG CAPSULE PO (08:21)
[2022-05-24] MEDS: FLUOXETINE HCL 40 MG CAPSULE PO (08:21)
[2022-05-24] MEDS: FUROSEMIDE 40 MG TABLET 20 MG PO (08:21)
[2022-05-24] MEDS: PRESERVISION AREDS 1 EACH PO ×2 (08:22→15:18)
[2022-05-24] MEDS: METOPROLOL TARTRATE 50 MG TABLET PO ×2 (08:22→15:18)
[2022-05-24] MEDS: lisinopriL 40 MG TABLET PO (08:22)
[2022-05-24] MEDS: ROSUVASTATIN CALCIUM 20 MG TABLET PO (08:24)
[2022-05-24] MEDS: POTASSIUM CHLORIDE 20 MEQ TAB.ER.PRT 40 MEQ PO ×2 (08:24→15:18)
[2022-05-24] MEDS: TRAMADOL HCL 50 MG TABLET PO ×3 (08:26→20:56)
[2022-05-24] MEDS: INSULIN GLARGINE,HUM.REC.ANLOG 100 UNIT/ML INSULN.PEN 22 UNIT SUBCUT (08:39)
--- NOTE | 2022-05-25 01:10 | PC.NURSE ---
WEEKLY CHARTING - WEEK 4: Vital signs reviewed. Slightly elevated BPs noted. Currently on antihypertensives. Temporary care plan reviewed. Fall interventions updated. Comprehensive care plan reviewed with no change. No documented behaviors in the last month. Currently receives buspirone 10 mg BID and fluoxetine 60 mg daily with no adverse effects. Is able to communicate needs verbally. Is usually understood and usually understands. No noted hearing deficits. Vision is impaired r/t macular degeneration. No medication changes. All medications administered by nurse. No change to health condition.
[2022-05-25] MEDS: ASPIRIN EC 325 MG TABLET PO (07:19)
[2022-05-25] MEDS: AMLODIPINE 10 MG TABLET PO (07:19)
[2022-05-25] MEDS: METOPROLOL TARTRATE 50 MG TABLET PO ×2 (07:20→15:23)
[2022-05-25] MEDS: BUSPIRONE 10 MG TABLET PO ×2 (07:20→15:23)
[2022-05-25] MEDS: lisinopriL 40 MG TABLET PO (07:20)
[2022-05-25] MEDS: FUROSEMIDE 40 MG TABLET 20 MG PO (07:20)
[2022-05-25] MEDS: FLUOXETINE HCL 40 MG CAPSULE PO (07:20)
[2022-05-25] MEDS: FLUOXETINE HCL 20 MG CAPSULE PO (07:20)
[2022-05-25] MEDS: TRAMADOL HCL 50 MG TABLET PO ×3 (07:21→20:34)
[2022-05-25] MEDS: POTASSIUM CHLORIDE 20 MEQ TAB.ER.PRT 40 MEQ PO ×2 (07:21→15:23)
[2022-05-25] MEDS: ROSUVASTATIN CALCIUM 20 MG TABLET PO (07:21)
[2022-05-25] MEDS: PRESERVISION AREDS 1 EACH PO ×2 (07:21→15:23)
[2022-05-25] MEDS: INSULIN GLARGINE,HUM.REC.ANLOG 100 UNIT/ML INSULN.PEN 22 UNIT SUBCUT (08:05)
--- NOTE | 2022-05-25 10:31 | PC.NURSE ---
Weekly Charting Week #4: Vitals signs reviewed with no issues Temporary care plan & comprehensive care plan reviewed with no changes. No behaviors, is on buspirone 10mg BID along with fluoxetine 60mg with no issues No issues with hearing, wears glasses mostly to read.
[2022-05-26] MEDS: BUSPIRONE 10 MG TABLET PO ×2 (07:37→16:00)
[2022-05-26] MEDS: ASPIRIN EC 325 MG TABLET PO (07:37)
[2022-05-26] MEDS: AMLODIPINE 10 MG TABLET PO (07:37)
[2022-05-26] MEDS: FLUOXETINE HCL 40 MG CAPSULE PO (07:37)
[2022-05-26] MEDS: FLUOXETINE HCL 20 MG CAPSULE PO (07:38)
[2022-05-26] MEDS: METOPROLOL TARTRATE 50 MG TABLET PO ×2 (07:38→16:00)
[2022-05-26] MEDS: lisinopriL 40 MG TABLET PO (07:38)
[2022-05-26] MEDS: FUROSEMIDE 40 MG TABLET 20 MG PO (07:38)
[2022-05-26] MEDS: PRESERVISION AREDS 1 EACH PO ×2 (07:39→16:00)
[2022-05-26] MEDS: TRAMADOL HCL 50 MG TABLET PO ×3 (07:39→20:53)
[2022-05-26] MEDS: POTASSIUM CHLORIDE 20 MEQ TAB.ER.PRT 40 MEQ PO ×2 (07:39→16:00)
[2022-05-26] MEDS: ROSUVASTATIN CALCIUM 20 MG TABLET PO (07:39)
[2022-05-26] MEDS: INSULIN GLARGINE,HUM.REC.ANLOG 100 UNIT/ML INSULN.PEN 22 UNIT SUBCUT (08:22)
[2022-05-27] MEDS: ROSUVASTATIN CALCIUM 20 MG TABLET PO (07:38)
[2022-05-27] MEDS: BUSPIRONE 10 MG TABLET PO ×2 (07:38→16:18)
[2022-05-27] MEDS: POTASSIUM CHLORIDE 20 MEQ TAB.ER.PRT 40 MEQ PO ×2 (07:38→16:18)
[2022-05-27] MEDS: PRESERVISION AREDS 1 EACH PO ×2 (07:38→16:18)
[2022-05-27] MEDS: FLUOXETINE HCL 20 MG CAPSULE PO (07:38)
[2022-05-27] MEDS: lisinopriL 40 MG TABLET PO (07:38)
[2022-05-27] MEDS: TRAMADOL HCL 50 MG TABLET PO ×3 (07:38→20:32)
[2022-05-27] MEDS: FUROSEMIDE 40 MG TABLET 20 MG PO (07:38)
[2022-05-27] MEDS: FLUOXETINE HCL 40 MG CAPSULE PO (07:38)
[2022-05-27] MEDS: ASPIRIN EC 325 MG TABLET PO (07:38)
[2022-05-27] MEDS: METOPROLOL TARTRATE 50 MG TABLET PO ×2 (07:38→16:18)
[2022-05-27] MEDS: AMLODIPINE 10 MG TABLET PO (07:38)
[2022-05-27] MEDS: INSULIN GLARGINE,HUM.REC.ANLOG 100 UNIT/ML INSULN.PEN 22 UNIT SUBCUT (08:20)
[2022-05-28] MEDS: BUSPIRONE 10 MG TABLET PO ×2 (07:15→15:37)
[2022-05-28] MEDS: AMLODIPINE 10 MG TABLET PO (07:15)
[2022-05-28] MEDS: ASPIRIN EC 325 MG TABLET PO (07:15)
[2022-05-28] MEDS: lisinopriL 40 MG TABLET PO (07:17)
[2022-05-28] MEDS: FLUOXETINE HCL 20 MG CAPSULE PO (07:17)
[2022-05-28] MEDS: FUROSEMIDE 40 MG TABLET 20 MG PO (07:17)
[2022-05-28] MEDS: FLUOXETINE HCL 40 MG CAPSULE PO (07:17)
[2022-05-28] MEDS: METOPROLOL TARTRATE 50 MG TABLET PO ×2 (07:17→15:38)
[2022-05-28] MEDS: TRAMADOL HCL 50 MG TABLET PO ×3 (07:18→19:44)
[2022-05-28] MEDS: POTASSIUM CHLORIDE 20 MEQ TAB.ER.PRT 40 MEQ PO ×2 (07:18→15:38)
[2022-05-28] MEDS: ROSUVASTATIN CALCIUM 20 MG TABLET PO (07:18)
[2022-05-28] MEDS: PRESERVISION AREDS 1 EACH PO ×2 (07:18→15:38)
[2022-05-28] MEDS: INSULIN GLARGINE,HUM.REC.ANLOG 100 UNIT/ML INSULN.PEN 22 UNIT SUBCUT (08:20)
[2022-05-29] MEDS: AMLODIPINE 10 MG TABLET PO (07:39)
[2022-05-29] MEDS: ASPIRIN EC 325 MG TABLET PO (07:40)
[2022-05-29] MEDS: FLUOXETINE HCL 20 MG CAPSULE PO (07:40)
[2022-05-29] MEDS: BUSPIRONE 10 MG TABLET PO ×2 (07:40→16:05)
[2022-05-29] MEDS: FLUOXETINE HCL 40 MG CAPSULE PO (07:40)
[2022-05-29] MEDS: lisinopriL 40 MG TABLET PO (07:41)
[2022-05-29] MEDS: METOPROLOL TARTRATE 50 MG TABLET PO ×2 (07:41→16:05)
[2022-05-29] MEDS: POTASSIUM CHLORIDE 20 MEQ TAB.ER.PRT 40 MEQ PO ×2 (07:41→16:05)
[2022-05-29] MEDS: FUROSEMIDE 40 MG TABLET 20 MG PO (07:41)
[2022-05-29] MEDS: PRESERVISION AREDS 1 EACH PO ×2 (07:41→16:05)
[2022-05-29] MEDS: ROSUVASTATIN CALCIUM 20 MG TABLET PO (07:42)
[2022-05-29] MEDS: TRAMADOL HCL 50 MG TABLET PO ×3 (07:42→20:02)
[2022-05-29] MEDS: INSULIN GLARGINE,HUM.REC.ANLOG 100 UNIT/ML INSULN.PEN 22 UNIT SUBCUT (08:06)
[2022-05-29] MEDS: NYSTATIN POWDER 1 APPLIC TOPICAL (21:04)
[2022-05-29] MEDS: BACITRACIN OINTMENT BULK TUBE 1 APPLIC TOPICAL (21:08)
[2022-05-30] MEDS: ASPIRIN EC 325 MG TABLET PO (07:13)
[2022-05-30] MEDS: AMLODIPINE 10 MG TABLET PO (07:13)
[2022-05-30] MEDS: ROSUVASTATIN CALCIUM 20 MG TABLET PO (07:15)
[2022-05-30] MEDS: POTASSIUM CHLORIDE 20 MEQ TAB.ER.PRT 40 MEQ PO ×2 (07:15→16:50)
[2022-05-30] MEDS: TRAMADOL HCL 50 MG TABLET PO ×3 (07:15→20:35)
[2022-05-30] MEDS: METOPROLOL TARTRATE 50 MG TABLET PO ×2 (07:15→16:50)
[2022-05-30] MEDS: lisinopriL 40 MG TABLET PO (07:15)
[2022-05-30] MEDS: PRESERVISION AREDS 1 EACH PO ×2 (07:15→16:50)
[2022-05-30] MEDS: FLUOXETINE HCL 40 MG CAPSULE PO (07:16)
[2022-05-30] MEDS: INSULIN GLARGINE,HUM.REC.ANLOG 100 UNIT/ML INSULN.PEN 22 UNIT SUBCUT (07:16)
[2022-05-30] MEDS: FLUOXETINE HCL 20 MG CAPSULE PO (07:16)
[2022-05-30] MEDS: FUROSEMIDE 40 MG TABLET 20 MG PO (07:16)
[2022-05-30] MEDS: BUSPIRONE 10 MG TABLET PO ×2 (07:16→16:50)
[2022-05-30 15:00] VITALS: BP 146/82; PULSE 63; RESP 18; TEMP 36.3; O2SAT 98
[2022-05-30 16:00] VITALS: BMI 32.6
[2022-05-31] MEDS: INSULIN GLARGINE,HUM.REC.ANLOG 100 UNIT/ML INSULN.PEN 22 UNIT SUBCUT (07:21)
[2022-05-31] MEDS: ASPIRIN EC 325 MG TABLET PO (07:21)
[2022-05-31] MEDS: AMLODIPINE 10 MG TABLET PO (07:21)
[2022-05-31] MEDS: ROSUVASTATIN CALCIUM 20 MG TABLET PO (07:22)
[2022-05-31] MEDS: lisinopriL 40 MG TABLET PO (07:22)
[2022-05-31] MEDS: POTASSIUM CHLORIDE 20 MEQ TAB.ER.PRT 40 MEQ PO ×2 (07:22→15:59)
[2022-05-31] MEDS: METOPROLOL TARTRATE 50 MG TABLET PO ×2 (07:22→15:58)
[2022-05-31] MEDS: BUSPIRONE 10 MG TABLET PO ×2 (07:22→15:58)
[2022-05-31] MEDS: PRESERVISION AREDS 1 EACH PO ×2 (07:22→15:58)
[2022-05-31] MEDS: TRAMADOL HCL 50 MG TABLET PO ×3 (07:22→19:10)
[2022-05-31] MEDS: FLUOXETINE HCL 20 MG CAPSULE PO (07:22)
[2022-05-31] MEDS: FLUOXETINE HCL 40 MG CAPSULE PO (07:22)
[2022-05-31] MEDS: FUROSEMIDE 40 MG TABLET 20 MG PO (07:23)
--- NOTE | 2022-06-01 04:44 | PC.NURSE ---
WEEKLY CHARTING - WEEK 1: Vital signs reviewed with no concerns. Temporary and comprehensive care plan reviewed - no change. Hx of pain. voices no c/o pain during the night. Receives tramadol 50mg TID and pregabalin 300mg BID for pain management which is noted to be effective. Requires assist of 1 with dressing, grooming, and bathing. Staff encourage resident participation. Uses EZ stand with 1 assist for all transfers. Independent with eating after setup. Has hx of swallowing difficulties with no noted incidence in the last month.
[2022-06-01] MEDS: AMLODIPINE 10 MG TABLET PO (07:51)
[2022-06-01] MEDS: ASPIRIN EC 325 MG TABLET PO (07:51)
[2022-06-01] MEDS: INSULIN GLARGINE,HUM.REC.ANLOG 100 UNIT/ML INSULN.PEN 22 UNIT SUBCUT (07:51)
[2022-06-01] MEDS: BUSPIRONE 10 MG TABLET PO ×2 (07:52→15:32)
[2022-06-01] MEDS: FLUOXETINE HCL 40 MG CAPSULE PO (07:52)
[2022-06-01] MEDS: FUROSEMIDE 40 MG TABLET 20 MG PO (07:53)
[2022-06-01] MEDS: METOPROLOL TARTRATE 50 MG TABLET PO ×2 (07:53→15:32)
[2022-06-01] MEDS: lisinopriL 40 MG TABLET PO (07:53)
[2022-06-01] MEDS: FLUOXETINE HCL 20 MG CAPSULE PO (07:53)
[2022-06-01] MEDS: PRESERVISION AREDS 1 EACH PO ×2 (07:53→15:32)
[2022-06-01] MEDS: ROSUVASTATIN CALCIUM 20 MG TABLET PO (07:55)
[2022-06-01] MEDS: TRAMADOL HCL 50 MG TABLET PO ×3 (07:55→20:40)
[2022-06-01] MEDS: POTASSIUM CHLORIDE 20 MEQ TAB.ER.PRT 40 MEQ PO ×2 (07:55→15:32)
[2022-06-02] MEDS: FLUOXETINE HCL 40 MG CAPSULE PO (07:46)
[2022-06-02] MEDS: ASPIRIN EC 325 MG TABLET PO (07:46)
[2022-06-02] MEDS: FUROSEMIDE 40 MG TABLET 20 MG PO (07:46)
[2022-06-02] MEDS: BUSPIRONE 10 MG TABLET PO ×2 (07:46→15:33)
[2022-06-02] MEDS: FLUOXETINE HCL 20 MG CAPSULE PO (07:46)
[2022-06-02] MEDS: AMLODIPINE 10 MG TABLET PO (07:46)
[2022-06-02] MEDS: lisinopriL 40 MG TABLET PO (07:47)
[2022-06-02] MEDS: PRESERVISION AREDS 1 EACH PO ×2 (07:47→15:33)
[2022-06-02] MEDS: METOPROLOL TARTRATE 50 MG TABLET PO ×2 (07:47→15:33)
[2022-06-02] MEDS: ROSUVASTATIN CALCIUM 20 MG TABLET PO (07:48)
[2022-06-02] MEDS: POTASSIUM CHLORIDE 20 MEQ TAB.ER.PRT 40 MEQ PO ×2 (07:48→15:33)
[2022-06-02] MEDS: TRAMADOL HCL 50 MG TABLET PO ×3 (07:52→19:24)
[2022-06-02] MEDS: INSULIN GLARGINE,HUM.REC.ANLOG 100 UNIT/ML INSULN.PEN 22 UNIT SUBCUT (08:19)
[2022-06-03] MEDS: BUSPIRONE 10 MG TABLET PO ×2 (08:10→16:11)
[2022-06-03] MEDS: FLUOXETINE HCL 20 MG CAPSULE PO (08:10)
[2022-06-03] MEDS: FLUOXETINE HCL 40 MG CAPSULE PO (08:10)
[2022-06-03] MEDS: FUROSEMIDE 40 MG TABLET 20 MG PO (08:11)
[2022-06-03] MEDS: AMLODIPINE 10 MG TABLET PO (08:11)
[2022-06-03] MEDS: METOPROLOL TARTRATE 50 MG TABLET PO ×2 (08:11→16:11)
[2022-06-03] MEDS: lisinopriL 40 MG TABLET PO (08:11)
[2022-06-03] MEDS: ASPIRIN EC 325 MG TABLET PO (08:11)
[2022-06-03] MEDS: POTASSIUM CHLORIDE 20 MEQ TAB.ER.PRT 40 MEQ PO ×2 (08:12→16:11)
[2022-06-03] MEDS: PRESERVISION AREDS 1 EACH PO ×2 (08:12→16:11)
[2022-06-03] MEDS: ROSUVASTATIN CALCIUM 20 MG TABLET PO (08:12)
[2022-06-03] MEDS: TRAMADOL HCL 50 MG TABLET PO ×3 (08:16→20:11)
[2022-06-03] MEDS: INSULIN GLARGINE,HUM.REC.ANLOG 100 UNIT/ML INSULN.PEN 22 UNIT SUBCUT (08:19)
[2022-06-03] MEDS: NYSTATIN POWDER 1 APPLIC TOPICAL (20:11)
[2022-06-04] MEDS: AMLODIPINE 10 MG TABLET PO (07:40)
[2022-06-04] MEDS: ASPIRIN EC 325 MG TABLET PO (07:40)
[2022-06-04] MEDS: PRESERVISION AREDS 1 EACH PO ×2 (07:41→15:34)
[2022-06-04] MEDS: POTASSIUM CHLORIDE 20 MEQ TAB.ER.PRT 40 MEQ PO ×2 (07:41→15:34)
[2022-06-04] MEDS: lisinopriL 40 MG TABLET PO (07:41)
[2022-06-04] MEDS: FLUOXETINE HCL 20 MG CAPSULE PO (07:41)
[2022-06-04] MEDS: TRAMADOL HCL 50 MG TABLET PO ×3 (07:41→20:21)
[2022-06-04] MEDS: FUROSEMIDE 40 MG TABLET 20 MG PO (07:41)
[2022-06-04] MEDS: FLUOXETINE HCL 40 MG CAPSULE PO (07:41)
[2022-06-04] MEDS: METOPROLOL TARTRATE 50 MG TABLET PO ×2 (07:41→15:34)
[2022-06-04] MEDS: ROSUVASTATIN CALCIUM 20 MG TABLET PO (07:41)
[2022-06-04] MEDS: BUSPIRONE 10 MG TABLET PO ×2 (07:41→15:34)
[2022-06-04] MEDS: INSULIN GLARGINE,HUM.REC.ANLOG 100 UNIT/ML INSULN.PEN 22 UNIT SUBCUT (08:10)
[2022-06-05] MEDS: AMLODIPINE 10 MG TABLET PO (07:53)
[2022-06-05] MEDS: ASPIRIN EC 325 MG TABLET PO (07:54)
[2022-06-05] MEDS: INSULIN GLARGINE,HUM.REC.ANLOG 100 UNIT/ML INSULN.PEN 22 UNIT SUBCUT (07:54)
[2022-06-05] MEDS: FLUOXETINE HCL 40 MG CAPSULE PO (07:54)
[2022-06-05] MEDS: BUSPIRONE 10 MG TABLET PO ×2 (07:54→15:22)
[2022-06-05] MEDS: METOPROLOL TARTRATE 50 MG TABLET PO ×2 (07:55→15:22)
[2022-06-05] MEDS: lisinopriL 40 MG TABLET PO (07:55)
[2022-06-05] MEDS: FLUOXETINE HCL 20 MG CAPSULE PO (07:55)
[2022-06-05] MEDS: FUROSEMIDE 40 MG TABLET 20 MG PO (07:55)
[2022-06-05] MEDS: PRESERVISION AREDS 1 EACH PO ×2 (07:56→15:22)
[2022-06-05] MEDS: TRAMADOL HCL 50 MG TABLET PO ×3 (07:57→20:33)
[2022-06-05] MEDS: POTASSIUM CHLORIDE 20 MEQ TAB.ER.PRT 40 MEQ PO ×2 (07:57→15:22)
[2022-06-05] MEDS: ROSUVASTATIN CALCIUM 20 MG TABLET PO (07:57)
--- NOTE | 2022-06-05 10:14 | PC.NURSE ---
Skin: Right abdominal area healed, intervention D/C'd
[2022-06-06] MEDS: FUROSEMIDE 40 MG TABLET 20 MG PO (07:18)
[2022-06-06] MEDS: FLUOXETINE HCL 40 MG CAPSULE PO (07:18)
[2022-06-06] MEDS: BUSPIRONE 10 MG TABLET PO ×2 (07:18→16:35)
[2022-06-06] MEDS: ASPIRIN EC 325 MG TABLET PO (07:18)
[2022-06-06] MEDS: lisinopriL 40 MG TABLET PO (07:18)
[2022-06-06] MEDS: FLUOXETINE HCL 20 MG CAPSULE PO (07:18)
[2022-06-06] MEDS: POTASSIUM CHLORIDE 20 MEQ TAB.ER.PRT 40 MEQ PO ×2 (07:18→16:35)
[2022-06-06] MEDS: INSULIN GLARGINE,HUM.REC.ANLOG 100 UNIT/ML INSULN.PEN 22 UNIT SUBCUT (07:18)
[2022-06-06] MEDS: AMLODIPINE 10 MG TABLET PO (07:18)
[2022-06-06] MEDS: PRESERVISION AREDS 1 EACH PO ×2 (07:18→16:35)
[2022-06-06] MEDS: METOPROLOL TARTRATE 50 MG TABLET PO ×2 (07:18→16:35)
[2022-06-06] MEDS: ROSUVASTATIN CALCIUM 20 MG TABLET PO (07:18)
[2022-06-06] MEDS: TRAMADOL HCL 50 MG TABLET PO ×3 (07:19→20:20)
--- NOTE | 2022-06-06 12:15 | PC.SPIRITC ---
Shaista expressed feeling sad. We talked about her past holiday traditions and how this time of the year can be hard when missing those things. I will continue to visit to provide support and time to reflect.
[2022-06-06 15:00] VITALS: BP 146/78; PULSE 60; RESP 16; TEMP 36.2; O2SAT 97
[2022-06-07] MEDS: ASPIRIN EC 325 MG TABLET PO (07:39)
[2022-06-07] MEDS: BUSPIRONE 10 MG TABLET PO ×2 (07:39→15:21)
[2022-06-07] MEDS: AMLODIPINE 10 MG TABLET PO (07:39)
[2022-06-07] MEDS: FLUOXETINE HCL 40 MG CAPSULE PO (07:39)
[2022-06-07] MEDS: FLUOXETINE HCL 20 MG CAPSULE PO (07:39)
[2022-06-07] MEDS: FUROSEMIDE 40 MG TABLET 20 MG PO (07:40)
[2022-06-07] MEDS: lisinopriL 40 MG TABLET PO (07:40)
[2022-06-07] MEDS: METOPROLOL TARTRATE 50 MG TABLET PO ×2 (07:40→15:21)
[2022-06-07] MEDS: ROSUVASTATIN CALCIUM 20 MG TABLET PO (07:41)
[2022-06-07] MEDS: POTASSIUM CHLORIDE 20 MEQ TAB.ER.PRT 40 MEQ PO ×2 (07:41→15:21)
[2022-06-07] MEDS: PRESERVISION AREDS 1 EACH PO ×2 (07:41→15:21)
[2022-06-07] MEDS: TRAMADOL HCL 50 MG TABLET PO ×3 (07:43→19:56)
[2022-06-07] MEDS: INSULIN GLARGINE,HUM.REC.ANLOG 100 UNIT/ML INSULN.PEN 22 UNIT SUBCUT (07:58)
--- NOTE | 2022-06-07 16:12 | PC.SPIRITC ---
provided visit for ongoing support.
--- NOTE | 2022-06-08 06:47 | PC.NURSE ---
Week #1: Comprehensive care plan reviewed, no changes made. Nothing added to temporary care plan. She needs extensive one assist with dressing, grooming and bathing. Encourage to participate as able. Can do oral cars after set up. Staff assist/complete as needed. Feed self after set up. Is on regular diet, thin liquids. No problems with chewing or swallowing reported. Vital signs reviewed, no concerns. Pain: Has chronic pain controlled with Lyrica 300mg BID, Ultram 50mg TID. She is able to communicate need for pain.
[2022-06-08] MEDS: FLUOXETINE HCL 40 MG CAPSULE PO (07:59)
[2022-06-08] MEDS: AMLODIPINE 10 MG TABLET PO (07:59)
[2022-06-08] MEDS: ASPIRIN EC 325 MG TABLET PO (07:59)
[2022-06-08] MEDS: BUSPIRONE 10 MG TABLET PO ×2 (07:59→16:06)
[2022-06-08] MEDS: INSULIN GLARGINE,HUM.REC.ANLOG 100 UNIT/ML INSULN.PEN 22 UNIT SUBCUT (07:59)
[2022-06-08] MEDS: METOPROLOL TARTRATE 50 MG TABLET PO ×2 (08:00→16:06)
[2022-06-08] MEDS: TRAMADOL HCL 50 MG TABLET PO ×3 (08:00→20:01)
[2022-06-08] MEDS: FUROSEMIDE 40 MG TABLET 20 MG PO (08:00)
[2022-06-08] MEDS: PRESERVISION AREDS 1 EACH PO ×2 (08:00→16:06)
[2022-06-08] MEDS: POTASSIUM CHLORIDE 20 MEQ TAB.ER.PRT 40 MEQ PO ×2 (08:00→16:50)
[2022-06-08] MEDS: FLUOXETINE HCL 20 MG CAPSULE PO (08:00)
[2022-06-08] MEDS: lisinopriL 40 MG TABLET PO (08:00)
[2022-06-08] MEDS: ROSUVASTATIN CALCIUM 20 MG TABLET PO (08:00)
[2022-06-08] MEDS: NYSTATIN POWDER 1 APPLIC TOPICAL (10:30)
--- NOTE | 2022-06-08 11:23 | PC.NURSE ---
Late Entry for 06/02/22: Recert Visit: Resident seen by Dr. Retana. Orders reviewed and renewed of 75 days without changes.
[2022-06-09] MEDS: AMLODIPINE 10 MG TABLET PO (07:53)
[2022-06-09] MEDS: BUSPIRONE 10 MG TABLET PO ×2 (07:53→15:05)
[2022-06-09] MEDS: ASPIRIN EC 325 MG TABLET PO (07:53)
[2022-06-09] MEDS: INSULIN GLARGINE,HUM.REC.ANLOG 100 UNIT/ML INSULN.PEN 22 UNIT SUBCUT (07:53)
[2022-06-09] MEDS: FUROSEMIDE 40 MG TABLET 20 MG PO (07:54)
[2022-06-09] MEDS: FLUOXETINE HCL 20 MG CAPSULE PO (07:54)
[2022-06-09] MEDS: FLUOXETINE HCL 40 MG CAPSULE PO (07:54)
[2022-06-09] MEDS: METOPROLOL TARTRATE 50 MG TABLET PO ×2 (07:55→15:05)
[2022-06-09] MEDS: lisinopriL 40 MG TABLET PO (07:55)
[2022-06-09] MEDS: PRESERVISION AREDS 1 EACH PO ×2 (07:55→15:05)
[2022-06-09] MEDS: TRAMADOL HCL 50 MG TABLET PO ×3 (07:56→19:25)
[2022-06-09] MEDS: ROSUVASTATIN CALCIUM 20 MG TABLET PO (07:56)
[2022-06-09] MEDS: POTASSIUM CHLORIDE 20 MEQ TAB.ER.PRT 40 MEQ PO ×2 (07:56→15:05)
[2022-06-10] MEDS: BUSPIRONE 10 MG TABLET PO ×2 (07:17→15:27)
[2022-06-10] MEDS: AMLODIPINE 10 MG TABLET PO (07:17)
[2022-06-10] MEDS: FLUOXETINE HCL 40 MG CAPSULE PO (07:17)
[2022-06-10] MEDS: ASPIRIN EC 325 MG TABLET PO (07:17)
[2022-06-10] MEDS: FLUOXETINE HCL 20 MG CAPSULE PO (07:17)
[2022-06-10] MEDS: FUROSEMIDE 40 MG TABLET 20 MG PO (07:18)
[2022-06-10] MEDS: ROSUVASTATIN CALCIUM 20 MG TABLET PO (07:18)
[2022-06-10] MEDS: PRESERVISION AREDS 1 EACH PO ×2 (07:18→15:27)
[2022-06-10] MEDS: lisinopriL 40 MG TABLET PO (07:18)
[2022-06-10] MEDS: NYSTATIN POWDER 1 APPLIC TOPICAL (07:18)
[2022-06-10] MEDS: POTASSIUM CHLORIDE 20 MEQ TAB.ER.PRT 40 MEQ PO ×2 (07:18→15:27)
[2022-06-10] MEDS: TRAMADOL HCL 50 MG TABLET PO ×3 (07:18→21:00)
[2022-06-10] MEDS: METOPROLOL TARTRATE 50 MG TABLET PO ×2 (07:18→15:27)
[2022-06-10] MEDS: INSULIN GLARGINE,HUM.REC.ANLOG 100 UNIT/ML INSULN.PEN 22 UNIT SUBCUT (07:55)
[2022-06-10] MEDS: MAGNESIUM HYDROXIDE 30 ML ORAL.SUSP PO (10:43)
[2022-06-11] MEDS: NYSTATIN POWDER 1 APPLIC TOPICAL ×2 (07:40→20:45)
[2022-06-11] MEDS: FLUOXETINE HCL 40 MG CAPSULE PO (07:41)
[2022-06-11] MEDS: AMLODIPINE 10 MG TABLET PO (07:41)
[2022-06-11] MEDS: INSULIN GLARGINE,HUM.REC.ANLOG 100 UNIT/ML INSULN.PEN 22 UNIT SUBCUT (07:41)
[2022-06-11] MEDS: ASPIRIN EC 325 MG TABLET PO (07:41)
[2022-06-11] MEDS: BUSPIRONE 10 MG TABLET PO ×2 (07:41→15:23)
[2022-06-11] MEDS: METOPROLOL TARTRATE 50 MG TABLET PO ×2 (07:42→15:23)
[2022-06-11] MEDS: FUROSEMIDE 40 MG TABLET 20 MG PO (07:42)
[2022-06-11] MEDS: PRESERVISION AREDS 1 EACH PO ×2 (07:42→15:23)
[2022-06-11] MEDS: lisinopriL 40 MG TABLET PO (07:42)
[2022-06-11] MEDS: FLUOXETINE HCL 20 MG CAPSULE PO (07:42)
[2022-06-11] MEDS: POTASSIUM CHLORIDE 20 MEQ TAB.ER.PRT 40 MEQ PO ×2 (07:44→15:23)
[2022-06-11] MEDS: TRAMADOL HCL 50 MG TABLET PO ×3 (07:44→20:35)
[2022-06-11] MEDS: ROSUVASTATIN CALCIUM 20 MG TABLET PO (07:44)
--- NOTE | 2022-06-11 12:58 | PC.NURSE ---
Skin: Was noted that growth near left eye is falling off. Intervention set up to monitor
[2022-06-12] MEDS: AMLODIPINE 10 MG TABLET PO (07:31)
[2022-06-12] MEDS: BUSPIRONE 10 MG TABLET PO ×2 (07:32→15:25)
[2022-06-12] MEDS: ASPIRIN EC 325 MG TABLET PO (07:32)
[2022-06-12] MEDS: FLUOXETINE HCL 20 MG CAPSULE PO (07:33)
[2022-06-12] MEDS: FUROSEMIDE 40 MG TABLET 20 MG PO (07:33)
[2022-06-12] MEDS: FLUOXETINE HCL 40 MG CAPSULE PO (07:33)
[2022-06-12] MEDS: lisinopriL 40 MG TABLET PO (07:34)
[2022-06-12] MEDS: PRESERVISION AREDS 1 EACH PO ×2 (07:34→15:25)
[2022-06-12] MEDS: METOPROLOL TARTRATE 50 MG TABLET PO ×2 (07:34→15:25)
[2022-06-12] MEDS: TRAMADOL HCL 50 MG TABLET PO ×3 (07:35→20:33)
[2022-06-12] MEDS: ROSUVASTATIN CALCIUM 20 MG TABLET PO (07:35)
[2022-06-12] MEDS: POTASSIUM CHLORIDE 20 MEQ TAB.ER.PRT 40 MEQ PO ×2 (07:35→15:25)
[2022-06-12] MEDS: INSULIN GLARGINE,HUM.REC.ANLOG 100 UNIT/ML INSULN.PEN 22 UNIT SUBCUT (08:05)
[2022-06-12] MEDS: NYSTATIN POWDER 1 APPLIC TOPICAL (20:33)
[2022-06-12 21:15] VITALS: BMI 32.7
[2022-06-13] MEDS: BUSPIRONE 10 MG TABLET PO ×2 (07:35→16:04)
[2022-06-13] MEDS: FLUOXETINE HCL 40 MG CAPSULE PO (07:35)
[2022-06-13] MEDS: AMLODIPINE 10 MG TABLET PO (07:35)
[2022-06-13] MEDS: FLUOXETINE HCL 20 MG CAPSULE PO (07:35)
[2022-06-13] MEDS: INSULIN GLARGINE,HUM.REC.ANLOG 100 UNIT/ML INSULN.PEN 22 UNIT SUBCUT (07:35)
[2022-06-13] MEDS: ASPIRIN EC 325 MG TABLET PO (07:35)
[2022-06-13] MEDS: POTASSIUM CHLORIDE 20 MEQ TAB.ER.PRT 40 MEQ PO ×2 (07:36→16:07)
[2022-06-13] MEDS: PRESERVISION AREDS 1 EACH PO ×2 (07:36→16:05)
[2022-06-13] MEDS: METOPROLOL TARTRATE 50 MG TABLET PO ×2 (07:36→16:05)
[2022-06-13] MEDS: lisinopriL 40 MG TABLET PO (07:36)
[2022-06-13] MEDS: TRAMADOL HCL 50 MG TABLET PO ×3 (07:36→19:47)
[2022-06-13] MEDS: ROSUVASTATIN CALCIUM 20 MG TABLET PO (07:36)
[2022-06-13] MEDS: FUROSEMIDE 40 MG TABLET 20 MG PO (07:37)
[2022-06-13 21:11] VITALS: BP 148/68; PULSE 68; RESP 18; TEMP 36.2; O2SAT 98
[2022-06-14] MEDS: MAGNESIUM HYDROXIDE 30 ML ORAL.SUSP PO (03:43)
[2022-06-14] MEDS: INSULIN GLARGINE,HUM.REC.ANLOG 100 UNIT/ML INSULN.PEN 22 UNIT SUBCUT (07:49)
[2022-06-14] MEDS: AMLODIPINE 10 MG TABLET PO (07:49)
[2022-06-14] MEDS: ASPIRIN EC 325 MG TABLET PO (07:49)
[2022-06-14] MEDS: POTASSIUM CHLORIDE 20 MEQ TAB.ER.PRT 40 MEQ PO ×2 (07:50→15:54)
[2022-06-14] MEDS: lisinopriL 40 MG TABLET PO (07:50)
[2022-06-14] MEDS: FLUOXETINE HCL 20 MG CAPSULE PO (07:50)
[2022-06-14] MEDS: TRAMADOL HCL 50 MG TABLET PO ×3 (07:50→20:50)
[2022-06-14] MEDS: PRESERVISION AREDS 1 EACH PO ×2 (07:50→15:54)
[2022-06-14] MEDS: METOPROLOL TARTRATE 50 MG TABLET PO ×2 (07:50→15:54)
[2022-06-14] MEDS: BUSPIRONE 10 MG TABLET PO ×2 (07:50→15:54)
[2022-06-14] MEDS: FLUOXETINE HCL 40 MG CAPSULE PO (07:50)
[2022-06-14] MEDS: FUROSEMIDE 40 MG TABLET 20 MG PO (07:50)
[2022-06-14] MEDS: ROSUVASTATIN CALCIUM 20 MG TABLET PO (07:50)
--- NOTE | 2022-06-14 13:03 | PC.PHA ---
MEDICATION REVIEW: MEDICATION MONITORING: Fluoxetine 60 mg daily for continued depression in forms of outbursts. Buspirone 10 mg bid for above said indication as well. [facility] continues, retyping said list would only enhance radiology equipment servicer error potential so please see medication list on EMR, all medications reviewed, no provider changes to medication regimen since last review. IRREGULARITY OR COMMENTS: Patient's blood pressures continue to run high. GDR of continues to be clinically contraindicated for fluoxetine and buspirone. I also note that family may need to be part of GDR discussion for any future attempts. No antibiotics or benzodiazepines prescribed since last review. SUGGESTED COURSE OF ACTION: Assess the need for adjustment of blood pressure medications.
--- NOTE | 2022-06-15 02:08 | PC.NURSE ---
WEEKLY CHARTING - WEEK 2: Vital signs reviewed. No concerns. Temporary and comprehensive care plan reviewed with no change. Assist of 1 with EZ stand for all transfers. Non-ambulatory. Half side rails in place bilaterally to aid in bed mobility. Independent with bed mobility after getting in bed. Total assist for w/c mobility. Is at high risk for falls per fall risk assessment. Bed is in low position, call light in reach, gripper socks on, and falling star magnet in place.
--- NOTE | 2022-06-15 07:26 | PC.NURSE ---
Week #2 - Mobility: Comprehensive care plan reviewed, no changes made. Nothing added to temporary care plan. Is non ambulatory. Needs one assist and medi stand for transfers. Staff propel to all destinations. Is able to reposition self in bed. Staff assist as needed. Top side rails up to aid for positioning/bed mobility. No alarms. Vital signs reviewed, no concerns. Fall: Had a fall on 05/20/22. Remains a high fall risk according to assessment done on 05/04/22.
[2022-06-15] MEDS: ASPIRIN EC 325 MG TABLET PO (07:30)
[2022-06-15] MEDS: FLUOXETINE HCL 40 MG CAPSULE PO (07:30)
[2022-06-15] MEDS: FLUOXETINE HCL 20 MG CAPSULE PO (07:30)
[2022-06-15] MEDS: BUSPIRONE 10 MG TABLET PO ×2 (07:30→15:04)
[2022-06-15] MEDS: AMLODIPINE 10 MG TABLET PO (07:30)
[2022-06-15] MEDS: FUROSEMIDE 40 MG TABLET 20 MG PO (07:31)
[2022-06-15] MEDS: lisinopriL 40 MG TABLET PO (07:31)
[2022-06-15] MEDS: PRESERVISION AREDS 1 EACH PO ×2 (07:31→15:04)
[2022-06-15] MEDS: METOPROLOL TARTRATE 50 MG TABLET PO ×2 (07:31→15:04)
[2022-06-15] MEDS: POTASSIUM CHLORIDE 20 MEQ TAB.ER.PRT 40 MEQ PO ×2 (07:32→15:04)
[2022-06-15] MEDS: ROSUVASTATIN CALCIUM 20 MG TABLET PO (07:33)
[2022-06-15] MEDS: NYSTATIN POWDER 1 APPLIC TOPICAL (07:33)
[2022-06-15] MEDS: TRAMADOL HCL 50 MG TABLET PO ×2 (07:33→20:07)
[2022-06-15] MEDS: INSULIN GLARGINE,HUM.REC.ANLOG 100 UNIT/ML INSULN.PEN 22 UNIT SUBCUT (08:27)
--- NOTE | 2022-06-15 12:54 | PC.NURSE ---
Order: Change Tramadol 50mg TID to BID @ 08 by Artemio FLAHERTY.
[2022-06-15] MEDS: LOPERAMIDE HCL 2 MG CAPSULE PO (15:31)
--- NOTE | 2022-06-15 21:27 | PC.NURSE ---
Resident had 3 loose/liquid BMs today. Was given Immodium 4mg @ 1531. No further BM this shift. ETL DEVELOPER updated of symptom.
[2022-06-16] MEDS: AMLODIPINE 10 MG TABLET PO (07:29)
[2022-06-16] MEDS: ASPIRIN EC 325 MG TABLET PO (07:30)
[2022-06-16] MEDS: BUSPIRONE 10 MG TABLET PO ×2 (07:45→15:59)
[2022-06-16] MEDS: PRESERVISION AREDS 1 EACH PO ×2 (07:45→15:59)
[2022-06-16] MEDS: FLUOXETINE HCL 40 MG CAPSULE PO (07:45)
[2022-06-16] MEDS: FLUOXETINE HCL 20 MG CAPSULE PO (07:45)
[2022-06-16] MEDS: lisinopriL 40 MG TABLET PO (07:45)
[2022-06-16] MEDS: INSULIN GLARGINE,HUM.REC.ANLOG 100 UNIT/ML INSULN.PEN 22 UNIT SUBCUT (07:45)
[2022-06-16] MEDS: ROSUVASTATIN CALCIUM 20 MG TABLET PO (07:45)
[2022-06-16] MEDS: METOPROLOL TARTRATE 50 MG TABLET PO ×2 (07:45→15:59)
[2022-06-16] MEDS: POTASSIUM CHLORIDE 20 MEQ TAB.ER.PRT 40 MEQ PO ×2 (07:45→16:00)
[2022-06-16] MEDS: FUROSEMIDE 40 MG TABLET 20 MG PO (07:45)
[2022-06-16] MEDS: TRAMADOL HCL 50 MG TABLET PO ×2 (07:46→19:45)
--- NOTE | 2022-06-16 20:59 | PC.NURSE ---
Catheter: ANISH reported that 2 wet brief and only 50cc output light blood in color in leg bag noted at hs. Servicer Travel Trailers able to irrigate with out problem and changed to Mathews Catheter and appears to be urine flowing at this time. Will update the upcoming shift to continues to monitor.
[2022-06-17] MEDS: FLUOXETINE HCL 40 MG CAPSULE PO (07:47)
[2022-06-17] MEDS: BUSPIRONE 10 MG TABLET PO ×2 (07:47→15:20)
[2022-06-17] MEDS: ASPIRIN EC 325 MG TABLET PO (07:47)
[2022-06-17] MEDS: FLUOXETINE HCL 20 MG CAPSULE PO (07:47)
[2022-06-17] MEDS: AMLODIPINE 10 MG TABLET PO (07:47)
[2022-06-17] MEDS: FUROSEMIDE 40 MG TABLET 20 MG PO (07:47)
[2022-06-17] MEDS: lisinopriL 40 MG TABLET PO (07:48)
[2022-06-17] MEDS: PRESERVISION AREDS 1 EACH PO ×2 (07:48→15:21)
[2022-06-17] MEDS: METOPROLOL TARTRATE 50 MG TABLET PO ×2 (07:48→15:20)
[2022-06-17] MEDS: POTASSIUM CHLORIDE 20 MEQ TAB.ER.PRT 40 MEQ PO ×2 (07:49→15:21)
[2022-06-17] MEDS: ROSUVASTATIN CALCIUM 20 MG TABLET PO (07:50)
[2022-06-17] MEDS: TRAMADOL HCL 50 MG TABLET PO ×2 (07:52→20:05)
[2022-06-17] MEDS: INSULIN GLARGINE,HUM.REC.ANLOG 100 UNIT/ML INSULN.PEN 22 UNIT SUBCUT (08:13)
[2022-06-18] MEDS: AMLODIPINE 10 MG TABLET PO (07:46)
[2022-06-18] MEDS: FLUOXETINE HCL 40 MG CAPSULE PO (07:46)
[2022-06-18] MEDS: ASPIRIN EC 325 MG TABLET PO (07:46)
[2022-06-18] MEDS: BUSPIRONE 10 MG TABLET PO ×2 (07:46→15:12)
[2022-06-18] MEDS: FLUOXETINE HCL 20 MG CAPSULE PO (07:46)
[2022-06-18] MEDS: lisinopriL 40 MG TABLET PO (07:47)
[2022-06-18] MEDS: METOPROLOL TARTRATE 50 MG TABLET PO ×2 (07:47→15:12)
[2022-06-18] MEDS: FUROSEMIDE 40 MG TABLET 20 MG PO (07:47)
[2022-06-18] MEDS: PRESERVISION AREDS 1 EACH PO ×2 (07:48→15:12)
[2022-06-18] MEDS: POTASSIUM CHLORIDE 20 MEQ TAB.ER.PRT 40 MEQ PO ×2 (07:48→15:12)
[2022-06-18] MEDS: ROSUVASTATIN CALCIUM 20 MG TABLET PO (07:48)
[2022-06-18] MEDS: TRAMADOL HCL 50 MG TABLET PO ×2 (07:50→19:54)
[2022-06-18] MEDS: INSULIN GLARGINE,HUM.REC.ANLOG 100 UNIT/ML INSULN.PEN 22 UNIT SUBCUT (08:05)
[2022-06-19] MEDS: AMLODIPINE 10 MG TABLET PO (08:12)
[2022-06-19] MEDS: ASPIRIN EC 325 MG TABLET PO (08:13)
[2022-06-19] MEDS: BUSPIRONE 10 MG TABLET PO ×2 (08:13→15:28)
[2022-06-19] MEDS: FLUOXETINE HCL 20 MG CAPSULE PO (08:13)
[2022-06-19] MEDS: INSULIN GLARGINE,HUM.REC.ANLOG 100 UNIT/ML INSULN.PEN 22 UNIT SUBCUT (08:13)
[2022-06-19] MEDS: FLUOXETINE HCL 40 MG CAPSULE PO (08:13)
[2022-06-19] MEDS: PRESERVISION AREDS 1 EACH PO ×2 (08:14→15:28)
[2022-06-19] MEDS: POTASSIUM CHLORIDE 20 MEQ TAB.ER.PRT 40 MEQ PO ×2 (08:14→15:28)
[2022-06-19] MEDS: METOPROLOL TARTRATE 50 MG TABLET PO ×2 (08:14→15:28)
[2022-06-19] MEDS: lisinopriL 40 MG TABLET PO (08:14)
[2022-06-19] MEDS: FUROSEMIDE 40 MG TABLET 20 MG PO (08:14)
[2022-06-19] MEDS: ROSUVASTATIN CALCIUM 20 MG TABLET PO (08:15)
[2022-06-19] MEDS: TRAMADOL HCL 50 MG TABLET PO ×2 (08:15→20:19)
[2022-06-20] MEDS: INSULIN GLARGINE,HUM.REC.ANLOG 100 UNIT/ML INSULN.PEN 22 UNIT SUBCUT (07:35)
[2022-06-20] MEDS: AMLODIPINE 10 MG TABLET PO (07:35)
[2022-06-20] MEDS: ASPIRIN EC 325 MG TABLET PO (07:35)
[2022-06-20] MEDS: BUSPIRONE 10 MG TABLET PO ×2 (07:35→16:18)
[2022-06-20] MEDS: FLUOXETINE HCL 40 MG CAPSULE PO (07:35)
[2022-06-20] MEDS: FUROSEMIDE 40 MG TABLET 20 MG PO (07:35)
[2022-06-20] MEDS: METOPROLOL TARTRATE 50 MG TABLET PO ×2 (07:36→16:18)
[2022-06-20] MEDS: PRESERVISION AREDS 1 EACH PO ×2 (07:36→16:18)
[2022-06-20] MEDS: TRAMADOL HCL 50 MG TABLET PO ×2 (07:36→20:03)
[2022-06-20] MEDS: lisinopriL 40 MG TABLET PO (07:36)
[2022-06-20] MEDS: FLUOXETINE HCL 20 MG CAPSULE PO (07:36)
[2022-06-20] MEDS: ROSUVASTATIN CALCIUM 20 MG TABLET PO (07:36)
[2022-06-20] MEDS: POTASSIUM CHLORIDE 20 MEQ TAB.ER.PRT 40 MEQ PO ×2 (07:36→16:18)
--- NOTE | 2022-06-20 12:40 | PC.NURSE ---
Order: Check BP's daily x 1 week d/t elevated levels per Artemio FLAHERTY.
--- NOTE | 2022-06-20 13:39 | PC.NURSE ---
Stoma Dressing : Dressing done to the catheter site. No foul smell. discharge minimal. Resident denies any pain .
[2022-06-20 14:13] VITALS: BP 121/73
[2022-06-20 21:08] VITALS: BP 123/67; PULSE 59; RESP 18; TEMP 36.2; O2SAT 97
[2022-06-21] MEDS: METOPROLOL TARTRATE 50 MG TABLET PO ×2 (08:00→15:50)
[2022-06-21] MEDS: INSULIN GLARGINE,HUM.REC.ANLOG 100 UNIT/ML INSULN.PEN 22 UNIT SUBCUT (08:00)
[2022-06-21] MEDS: BUSPIRONE 10 MG TABLET PO ×2 (08:00→15:50)
[2022-06-21] MEDS: POTASSIUM CHLORIDE 20 MEQ TAB.ER.PRT 40 MEQ PO ×2 (08:00→15:50)
[2022-06-21] MEDS: PRESERVISION AREDS 1 EACH PO ×2 (08:00→15:50)
[2022-06-21] MEDS: ROSUVASTATIN CALCIUM 20 MG TABLET PO (08:00)
[2022-06-21] MEDS: AMLODIPINE 10 MG TABLET PO (08:00)
[2022-06-21] MEDS: FUROSEMIDE 40 MG TABLET 20 MG PO (08:00)
[2022-06-21] MEDS: FLUOXETINE HCL 40 MG CAPSULE PO (08:00)
[2022-06-21] MEDS: lisinopriL 40 MG TABLET PO (08:00)
[2022-06-21] MEDS: ASPIRIN EC 325 MG TABLET PO (08:00)
[2022-06-21] MEDS: TRAMADOL HCL 50 MG TABLET PO ×2 (08:00→19:13)
[2022-06-21] MEDS: FLUOXETINE HCL 20 MG CAPSULE PO (08:01)
--- NOTE | 2022-06-21 09:04 | PC.NURSE ---
Week #3 - Toileting: Comprehensive care plan reviewed, no changes made. Nothing added to temporary care plan. Resident has a suprapubic catheter connected to the leg bag during the day. Dribbles urine from urethra a t times. Bag emptied by staff q shift. Suprapubic cath changed monthly by staff, leg/cifuentes changed every 14 days. She is usually continent of bowels, with occasional incontinence. Staff toilet for BM's per her request using the medi stand. Wears XL pull ups. Pads, edward cares, clothing adjustment managed by staff. Has elevated BP values. BP monitored daily for 1 week then MATERIAL SPREADER evaluates. Skin: No issues at this time. Skin is checked routinely during cares and on bath day.
[2022-06-21 09:44] VITALS: BP 133/77
--- NOTE | 2022-06-22 03:50 | PC.NURSE ---
WEEKLY CHARTING - WEEK 3: Vital signs reviewed. Some elevated blood pressure values. BP currently being monitored daily per PORTABLE FEED MILL OPERATOR order. Temporary and comprehensive care plan reviewed - no change. Staff is monitoring growth near left eye. Dressing to suprapubic site is changed BID. Area is washed with soap and water before applying dressing. Primarily continent of bowels with occasional incontinent episodes. Leaks urine from urethra at times. Wears XL pull-up. Patience of 1 with EZ stand for transfers to toilet. Staff assist for edward-cares, pad, and clothing management. Requests not to be disturbed during the night.
[2022-06-22] MEDS: INSULIN GLARGINE,HUM.REC.ANLOG 100 UNIT/ML INSULN.PEN 22 UNIT SUBCUT (08:02)
[2022-06-22] MEDS: ASPIRIN EC 325 MG TABLET PO (08:02)
[2022-06-22] MEDS: AMLODIPINE 10 MG TABLET PO (08:02)
[2022-06-22] MEDS: ROSUVASTATIN CALCIUM 20 MG TABLET PO (08:03)
[2022-06-22] MEDS: TRAMADOL HCL 50 MG TABLET PO ×2 (08:03→19:40)
[2022-06-22] MEDS: FUROSEMIDE 40 MG TABLET 20 MG PO (08:03)
[2022-06-22] MEDS: lisinopriL 40 MG TABLET PO (08:03)
[2022-06-22] MEDS: FLUOXETINE HCL 40 MG CAPSULE PO (08:03)
[2022-06-22] MEDS: BUSPIRONE 10 MG TABLET PO ×2 (08:03→16:31)
[2022-06-22] MEDS: METOPROLOL TARTRATE 50 MG TABLET PO ×2 (08:03→16:31)
[2022-06-22] MEDS: POTASSIUM CHLORIDE 20 MEQ TAB.ER.PRT 40 MEQ PO ×2 (08:03→16:32)
[2022-06-22] MEDS: PRESERVISION AREDS 1 EACH PO ×2 (08:03→16:31)
[2022-06-22] MEDS: FLUOXETINE HCL 20 MG CAPSULE PO (08:04)
[2022-06-22 11:19] VITALS: BP 121/79
--- NOTE | 2022-06-22 16:47 | LTC.FALL ---
[facility] Fall Note: o Fall Date:06/22/22 o Fall Time:1500 o What happened?Resident attempting to stand up d walk to the bathroom o Who found the resident and who responded? Child Care Director. o What was the resident doing? Sitting on her recliner. o How the resident was found (knees, left side, arm under them), any hazards (cords, objects, nonskid slippers) brakes on? Proper equipment? facing down on the floor. She had her slipper socks on, call light with in reach o Did you assess for head trauma, spinal injuries, skeletal injuries, neurological changes and status, and head and neck pain? What did you find? 10cm x 10cm contusion R side forehead above eyebrow. o Did you assess ROM in shoulders, elbows, hips, knees, any other affected areas, unless there is suspected spinal injury. Able to move all extremity per base line. o Did you Assess for pain or discomfort? Yes, Resident states all over when ask o What are the injuries and how are they being treated? 10cm x 10cm contusion to Rt side forehead above eyebrow. Reposition her in bed and applied ice. o How was the resident transferred from the floor?Gissell with assist of 3 o Did you call the MD or put a note in the CARVER HAND book? Yes o Enter vital signs.Temp 98.4. O2 sat 95% on room air. BP 182/84, P 63, R 22 o Did you notify family? Yes o What was the root cause of the fall? Why did it happen? Resident did not call for help and attempting to self transfer. o Create an IMMEDIATE INTERVENTION to ensure that this won't immediately happen again. (Put in temporary care plan too) o Complete Safety report and huddle (now one form) o If resident is seen in ED or fractured something, note that you started a [facility] Report process. Instructions are at the East nurse's desk in a red binder labeled [facility] report.
--- NOTE | 2022-06-22 18:17 | PC.NURSE ---
FALL FOLLOW-UP: Vital signs: T98.1,P 64, Pb160/75 O2 sat -95% on RA R 20. PERRLA. Neuros intact. Hand grasps strong and equal per base line . resident Denies headache, double vision, or nausea. Orientation per baseline. resident resting in bed at this time. will continues to monitor.
--- NOTE | 2022-06-22 18:44 | PC.NURSE ---
FALL FOLLOW-UP: Vital signs at 1700: T97.3, ,P 65, Pb 157/77 O2 sat -95% on RA R 18. PERRLA. Neuros intact. Hand grasps strong and equal per base line . Resident Denies headache, double vision, or nausea. Orientation per baseline. resident eating supper at this time. will continues to monitor.
[2022-06-22 21:15] VITALS: BP 153/72; PULSE 60; RESP 18; TEMP 36.6; O2SAT 94
--- NOTE | 2022-06-22 21:23 | PC.NURSE ---
Fall follow ups at 1900 : Resident c/o's pain to rt arm when ask, given scheduled Ultram, reposition arm with pillow and resident states that feels better Vitals obtained and documented, neuro are WNL. Denies headache, blurry vision. Resident ate 100% of her supper and sleeping comfortable at this time. at this time.
[2022-06-23 01:14] VITALS: BP 144/65; PULSE 69; RESP 16; TEMP 37; O2SAT 92
--- NOTE | 2022-06-23 01:21 | PC.NURSE ---
FALL FOLLOW-UP: Vital signs- 98.6-69-16-144/65-92% on RA. DONNRLA. Denies headache, blurred/double vision, or nausea when asked. ROM at baseline. 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 States she has mild pain all over. Declines any intervention. Right upper eyelid is beginning to swell and turn purple/blue. Ice pack applied.
[2022-06-23 05:00] VITALS: BP 159/69; PULSE 65; RESP 18; TEMP 37.2; O2SAT 94
--- NOTE | 2022-06-23 05:33 | PC.NURSE ---
FALL FOLLOW-UP: Vital signs- 98.9-65-18-159/69-94% on RA. YOANNALA. Hand grasps at baseline. States she has a mild headache. Denies any blurred vision or nausea. States that body hurts all over. ROM completed with no acute pain. Facial bruising is spreading. Refused application of ice at this time.
[2022-06-23] MEDS: INSULIN GLARGINE,HUM.REC.ANLOG 100 UNIT/ML INSULN.PEN 22 UNIT SUBCUT (08:16)
[2022-06-23] MEDS: AMLODIPINE 10 MG TABLET PO (08:16)
[2022-06-23] MEDS: ASPIRIN EC 325 MG TABLET PO (08:16)
[2022-06-23] MEDS: PRESERVISION AREDS 1 EACH PO ×2 (08:17→15:29)
[2022-06-23] MEDS: FUROSEMIDE 40 MG TABLET 20 MG PO (08:17)
[2022-06-23] MEDS: POTASSIUM CHLORIDE 20 MEQ TAB.ER.PRT 40 MEQ PO ×2 (08:17→15:30)
[2022-06-23] MEDS: FLUOXETINE HCL 20 MG CAPSULE PO (08:17)
[2022-06-23] MEDS: METOPROLOL TARTRATE 50 MG TABLET PO ×2 (08:17→15:29)
[2022-06-23] MEDS: lisinopriL 40 MG TABLET PO (08:17)
[2022-06-23] MEDS: FLUOXETINE HCL 40 MG CAPSULE PO (08:17)
[2022-06-23] MEDS: BUSPIRONE 10 MG TABLET PO ×2 (08:17→15:29)
[2022-06-23] MEDS: ROSUVASTATIN CALCIUM 20 MG TABLET PO (08:18)
[2022-06-23] MEDS: TRAMADOL HCL 50 MG TABLET PO ×2 (08:18→20:04)
[2022-06-23 13:05] VITALS: BP 135/81
[2022-06-23 13:06] VITALS: BP 140/70; PULSE 68; RESP 20; TEMP 36.4; O2SAT 95
--- NOTE | 2022-06-23 13:15 | PC.NURSE ---
Fall F/U : Resident was very tired towards afternoon. Refused lunch. Vital and neuro are WNL. Right eye is still swollen and bluish black in color. Applied ice formation to the right eye and right knee. Vital signs-T 98.3-P 69-R 20-B/P 135/76-O2 96% on RA. PERRLA. c/o body pain but refused any pain medication.She informed that she can tolerate the pain.
--- NOTE | 2022-06-23 13:38 | PC.NURSE ---
Fall F/U : Resident was alert and orientated. Notice swelling and bruise on above upper eye. Vision not affected. Vital signs and Neuro are WNL Temp: 97.2 Pulse 70, B/P 140/85 d O2 95% (RA) Ate breakfast 100% . At 0930 She c/o of headache and right knee pain, ice pack was applied with relieved.
[2022-06-23 17:30] VITALS: BP 135/76; PULSE 64; RESP 18; TEMP 36.8; O2SAT 96
--- NOTE | 2022-06-23 21:04 | PC.NURSE ---
Fall F/U : Resident was alert and orientated. Staff continue to monitor the swelling and bruise of the right eye. Vision not affected. Vital signs and Neuro are WNL? Resident was hungry and ate her supper 100%. Noted swelling on her right knee. To continue to monitor TRO fracture.
[2022-06-23 21:12] VITALS: BP 138/72; PULSE 60; RESP 18; TEMP 36.3; O2SAT 94
[2022-06-24 02:13] VITALS: BP 154/76; PULSE 65; RESP 18; TEMP 37.2; O2SAT 95
--- NOTE | 2022-06-24 02:17 | PC.NURSE ---
Assessment of right knee: Right knee is more swollen than left. client account assistant made observation that this difference in sizes between knees is normal. Did note some small amount of bruising above the knee and with comparison of warm between the left and right knee did note the right knee to be warmer. Her temp. was 98.9. She denied pain.
[2022-06-24 05:23] VITALS: BP 158/77; PULSE 65; RESP 18; TEMP 37.5; O2SAT 94
[2022-06-24] MEDS: AMLODIPINE 10 MG TABLET PO (08:21)
[2022-06-24] MEDS: INSULIN GLARGINE,HUM.REC.ANLOG 100 UNIT/ML INSULN.PEN 22 UNIT SUBCUT (08:21)
[2022-06-24] MEDS: ASPIRIN EC 325 MG TABLET PO (08:21)
[2022-06-24] MEDS: POTASSIUM CHLORIDE 20 MEQ TAB.ER.PRT 40 MEQ PO ×2 (08:22→16:21)
[2022-06-24] MEDS: FLUOXETINE HCL 20 MG CAPSULE PO (08:22)
[2022-06-24] MEDS: BUSPIRONE 10 MG TABLET PO ×2 (08:22→16:20)
[2022-06-24] MEDS: TRAMADOL HCL 50 MG TABLET PO ×2 (08:22→20:51)
[2022-06-24] MEDS: METOPROLOL TARTRATE 50 MG TABLET PO ×2 (08:22→16:20)
[2022-06-24] MEDS: ROSUVASTATIN CALCIUM 20 MG TABLET PO (08:22)
[2022-06-24] MEDS: FUROSEMIDE 40 MG TABLET 20 MG PO (08:22)
[2022-06-24] MEDS: FLUOXETINE HCL 40 MG CAPSULE PO (08:22)
[2022-06-24] MEDS: lisinopriL 40 MG TABLET PO (08:22)
[2022-06-24] MEDS: PRESERVISION AREDS 1 EACH PO ×2 (08:22→16:20)
--- NOTE | 2022-06-24 08:53 | PC.NURSE ---
Fall F/U : Resident refused to get out of bed. c/o pain on her right knee. Noted right knee swollen,warm and tender to touch. Vitals :T: 98.2, P: 66,B/P 150/76& O2 92% Tolerated oral medication well.no c/o nausea except pain whole body. Bruise and swelling on her right eye still present. To update datawarehouse developer on resident`s status regarding a order for X-ray to rule out fracture.
[2022-06-24 09:00] VITALS: BP 150/76; PULSE 66; RESP 20; TEMP 36.8; O2SAT 92
--- NOTE | 2022-06-24 09:34 | PC.SPIRITC ---
provided visit for support.
--- NOTE | 2022-06-24 10:24 | CRLHL7_ITS ---
For Patients: As a result of the Century Cures Act, medical imaging exams and procedure reports are released immediately into your electronic medical record. You may view this report before your referring provider. If you have questions, please contact your health care provider. Indication: Right knee pain related to a fall Technique: A total of two views of the right knee were acquired. Comparison: None Findings: Bones: There is no fracture or dislocation. There is marked demineralization. There is suggestion of a permeative infiltrative process of the visualized proximal tibia and fibula which can be seen in myeloma or other disorders. Follow-up evaluation of this is recommended Joint spaces: No joint effusion. Degenerative change primarily of the medial compartment Soft tissues: Soft tissue swelling Impression: 1. No visible acute posttraumatic finding. No joint effusion. 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 2. Soft tissue swelling. 3. Suggestion of a permeative infiltrative process of the visualized proximal tibia and fibula. This can be seen in myeloma and other infiltrative disorders. Follow-up evaluation of this is recommended at a clinically appropriate time Dictated by Levar Schultz MD @ 06/24/2022 2:11:46 PM (Electronically Signed)
--- NOTE | 2022-06-24 10:40 | PC.NURSE ---
Fall F/U regarding right knee pain:?Geneemilia was called at 0930 and RN received verbal order at 1015 per R/N Velma on behalf N/P Bonnie Ulloa to do right knee X-ray ( 2 view) to rule out fracture related to pain from fall.
--- NOTE | 2022-06-24 10:47 | PC.NURSE ---
X-ray : Order was put to conduct right knee x-ray ( 2 view) , communicated to house officer and it was done at 1055.
[2022-06-24 13:38] VITALS: BP 148/70; PULSE 76; RESP 18; TEMP 36.9; O2SAT 94
--- NOTE | 2022-06-24 13:46 | PC.NURSE ---
Fall F/U : Resident is alert and orientated. Has been in bed during this shift. Pupil are equal and reactive. Still obvious bruise and discoloration (purple blue),however resident c/o less discomfort on the eye. Ate 100% breakfast and lunch. Still awaiting for knee X- ray results. Vitals and neuro are WNL. Hand grasp are baseline. Resident c/o less pain after ice application to her knee. Daughter Katarzyna notified about resident status.
--- NOTE | 2022-06-24 14:21 | PC.NURSE ---
Knee X-ray findings : 1. No visible acute posttraumatic finding. No joint effusion. 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 2. Soft tissue swelling. 3. Suggestion of a permeative infiltrative process of the visualized proximal tibia and fibula. This can be seen in myeloma and other infiltrative disorders. Follow-up evaluation of this is recommended at a clinically appropriate time
--- NOTE | 2022-06-24 14:56 | PC.NURSE ---
Family update X-ray finding: Updated daughter (Katarzyna) that no visible acute posttraumatic finding at this time and will continues with ice for the swelling.
[2022-06-24 17:00] VITALS: BP 146/77; RESP 16; TEMP 36.7; O2SAT 94
--- NOTE | 2022-06-24 17:37 | PC.NURSE ---
Fall f/u at 1700: VS:T98.1, 60, O2 sat 94% on room air, Bp 146/77, R 16. Resident c/o minor pain to rt forehead above the eyelid bruising which applied ice. Neuro WNL ,She denied any other pain, blurry vision, headache at this time. Neuro right knee remains same with swollen, refused ice. Will continues to monitor.
[2022-06-24 21:00] VITALS: BP 148/80; PULSE 94; RESP 16; TEMP 36.2; O2SAT 94
--- NOTE | 2022-06-24 21:49 | PC.NURSE ---
Follow up Fall Resident did not complain about pain related to latest fall ; she got her Tramadol 50 mg scheduled ,at HS. Swelling and bruise on right eye is still obvious, will keep monitoring.
[2022-06-25 01:00] VITALS: BP 147/77; PULSE 60; PULSE 95; RESP 16; TEMP 36.4; O2SAT 95
--- NOTE | 2022-06-25 01:29 | PC.NURSE ---
Follow up fall Resident is sleeping quietly, no attempt to self transfer. Vitals are normal. Will continue to monitor.
[2022-06-25 05:00] VITALS: BP 140/82; PULSE 60; RESP 16; TEMP 36.4; O2SAT 95
--- NOTE | 2022-06-25 05:30 | PC.NURSE ---
Fall follow up Resident night went well,no complain of pain or discomfort. Vitals normal , neuro intact ; she is alert and can voice her needs.
[2022-06-25] MEDS: ASPIRIN EC 325 MG TABLET PO (08:19)
[2022-06-25] MEDS: BUSPIRONE 10 MG TABLET PO ×2 (08:19→15:58)
[2022-06-25] MEDS: INSULIN GLARGINE,HUM.REC.ANLOG 100 UNIT/ML INSULN.PEN 22 UNIT SUBCUT (08:19)
[2022-06-25] MEDS: AMLODIPINE 10 MG TABLET PO (08:19)
[2022-06-25] MEDS: POTASSIUM CHLORIDE 20 MEQ TAB.ER.PRT 40 MEQ PO ×2 (08:20→15:58)
[2022-06-25] MEDS: PRESERVISION AREDS 1 EACH PO ×2 (08:20→15:58)
[2022-06-25] MEDS: METOPROLOL TARTRATE 50 MG TABLET PO ×2 (08:20→15:58)
[2022-06-25] MEDS: TRAMADOL HCL 50 MG TABLET PO ×2 (08:20→19:01)
[2022-06-25] MEDS: FLUOXETINE HCL 20 MG CAPSULE PO (08:20)
[2022-06-25] MEDS: FUROSEMIDE 40 MG TABLET 20 MG PO (08:20)
[2022-06-25] MEDS: lisinopriL 40 MG TABLET PO (08:20)
[2022-06-25] MEDS: FLUOXETINE HCL 40 MG CAPSULE PO (08:20)
[2022-06-25] MEDS: ROSUVASTATIN CALCIUM 20 MG TABLET PO (08:20)
[2022-06-25 11:09] VITALS: BP 140/72; BP 145/76; PULSE 64; RESP 18; TEMP 36.6; O2SAT 96
[2022-06-25 17:06] VITALS: BP 140/70; PULSE 74; RESP 20; TEMP 36.8; O2SAT 95
--- NOTE | 2022-06-25 17:07 | PC.NURSE ---
Fall F/U : Resident got up for lunch are sat on her recliner. Her pain on the right knee has reduced after the ice formation and she is feeling much better. Appetite good. Vital and neuro are WNL. Resident currently has chair alarm for monitoring purpose.
[2022-06-26 04:10] VITALS: BP 142/64; PULSE 66; RESP 18; TEMP 36.3; O2SAT 95
[2022-06-26 08:00] VITALS: BP 143/77
[2022-06-26] MEDS: ASPIRIN EC 325 MG TABLET PO (08:14)
[2022-06-26] MEDS: AMLODIPINE 10 MG TABLET PO (08:14)
[2022-06-26] MEDS: BUSPIRONE 10 MG TABLET PO ×2 (08:14→15:39)
[2022-06-26] MEDS: FLUOXETINE HCL 40 MG CAPSULE PO (08:14)
[2022-06-26] MEDS: lisinopriL 40 MG TABLET PO (08:15)
[2022-06-26] MEDS: FLUOXETINE HCL 20 MG CAPSULE PO (08:15)
[2022-06-26] MEDS: FUROSEMIDE 40 MG TABLET 20 MG PO (08:15)
[2022-06-26] MEDS: METOPROLOL TARTRATE 50 MG TABLET PO ×2 (08:15→15:39)
[2022-06-26] MEDS: PRESERVISION AREDS 1 EACH PO ×2 (08:16→15:39)
[2022-06-26] MEDS: POTASSIUM CHLORIDE 20 MEQ TAB.ER.PRT 40 MEQ PO ×2 (08:16→15:40)
[2022-06-26] MEDS: ROSUVASTATIN CALCIUM 20 MG TABLET PO (08:16)
[2022-06-26] MEDS: TRAMADOL HCL 50 MG TABLET PO ×2 (08:21→19:46)
[2022-06-26] MEDS: INSULIN GLARGINE,HUM.REC.ANLOG 100 UNIT/ML INSULN.PEN 22 UNIT SUBCUT (08:25)
[2022-06-27 08:00] VITALS: BP 160/80
[2022-06-27] MEDS: BUSPIRONE 10 MG TABLET PO ×2 (08:10→16:23)
[2022-06-27] MEDS: FLUOXETINE HCL 40 MG CAPSULE PO (08:10)
[2022-06-27] MEDS: ASPIRIN EC 325 MG TABLET PO (08:10)
[2022-06-27] MEDS: AMLODIPINE 10 MG TABLET PO (08:10)
[2022-06-27] MEDS: PRESERVISION AREDS 1 EACH PO ×2 (08:11→16:23)
[2022-06-27] MEDS: METOPROLOL TARTRATE 50 MG TABLET PO ×2 (08:11→16:23)
[2022-06-27] MEDS: lisinopriL 40 MG TABLET PO (08:11)
[2022-06-27] MEDS: FLUOXETINE HCL 20 MG CAPSULE PO (08:11)
[2022-06-27] MEDS: FUROSEMIDE 40 MG TABLET 20 MG PO (08:11)
[2022-06-27] MEDS: POTASSIUM CHLORIDE 20 MEQ TAB.ER.PRT 40 MEQ PO ×2 (08:13→16:24)
[2022-06-27] MEDS: ROSUVASTATIN CALCIUM 20 MG TABLET PO (08:13)
[2022-06-27] MEDS: TRAMADOL HCL 50 MG TABLET PO ×2 (08:15→19:39)
[2022-06-27] MEDS: INSULIN GLARGINE,HUM.REC.ANLOG 100 UNIT/ML INSULN.PEN 22 UNIT SUBCUT (08:23)
--- NOTE | 2022-06-27 11:54 | PC.SPIRITC ---
Shaista expressed having a hard time the last few days. I provided visit for support and connection, along with sending a text to Shaista's sister, Dona, on her phone per Shaista's request.
[2022-06-27 15:00] VITALS: BP 160/80; PULSE 60; RESP 18; TEMP 36.6; O2SAT 95
[2022-06-28] MEDS: BUSPIRONE 10 MG TABLET PO ×2 (08:07→16:23)
[2022-06-28] MEDS: METOPROLOL TARTRATE 50 MG TABLET PO ×2 (08:07→16:23)
[2022-06-28] MEDS: AMLODIPINE 10 MG TABLET PO (08:07)
[2022-06-28] MEDS: INSULIN GLARGINE,HUM.REC.ANLOG 100 UNIT/ML INSULN.PEN 22 UNIT SUBCUT (08:07)
[2022-06-28] MEDS: lisinopriL 40 MG TABLET PO (08:07)
[2022-06-28] MEDS: PRESERVISION AREDS 1 EACH PO ×2 (08:07→16:23)
[2022-06-28] MEDS: ASPIRIN EC 325 MG TABLET PO (08:07)
[2022-06-28] MEDS: FLUOXETINE HCL 40 MG CAPSULE PO (08:07)
[2022-06-28] MEDS: FLUOXETINE HCL 20 MG CAPSULE PO (08:07)
[2022-06-28] MEDS: FUROSEMIDE 40 MG TABLET 20 MG PO (08:07)
[2022-06-28] MEDS: ROSUVASTATIN CALCIUM 20 MG TABLET PO (08:08)
[2022-06-28] MEDS: POTASSIUM CHLORIDE 20 MEQ TAB.ER.PRT 40 MEQ PO ×2 (08:08→16:23)
[2022-06-28] MEDS: TRAMADOL HCL 50 MG TABLET PO ×2 (08:08→20:30)
[2022-06-28 13:30] VITALS: BP 129/75
[2022-06-28] MEDS: ACETAMINOPHEN 325 MG TABLET 650 MG PO (14:49)
--- NOTE | 2022-06-29 02:26 | PC.NURSE ---
WEEKLY CHARTING - WEEK 4: Vital signs reviewed. Temporary and comprehensive car plan reviewed - no change. No documented behavioral episodes int the last month. Currently receives buspirone 10mg BID and fluoxetine 60mg daily with no noted adverse effects.Is able to voice needs. Has no hearing impairment. Visual deficit r/t macular degeneration. Medications administered by nurse. No change in health condition.
[2022-06-29] MEDS: METOPROLOL TARTRATE 50 MG TABLET PO ×2 (07:49→15:22)
[2022-06-29] MEDS: lisinopriL 40 MG TABLET PO (07:49)
[2022-06-29] MEDS: FUROSEMIDE 40 MG TABLET 20 MG PO (07:49)
[2022-06-29] MEDS: FLUOXETINE HCL 40 MG CAPSULE PO (07:49)
[2022-06-29] MEDS: AMLODIPINE 10 MG TABLET PO (07:49)
[2022-06-29] MEDS: ASPIRIN EC 325 MG TABLET PO (07:49)
[2022-06-29] MEDS: FLUOXETINE HCL 20 MG CAPSULE PO (07:49)
[2022-06-29] MEDS: INSULIN GLARGINE,HUM.REC.ANLOG 100 UNIT/ML INSULN.PEN 22 UNIT SUBCUT (07:49)
[2022-06-29] MEDS: PRESERVISION AREDS 1 EACH PO ×2 (07:49→15:22)
[2022-06-29] MEDS: BUSPIRONE 10 MG TABLET PO ×2 (07:49→15:22)
[2022-06-29] MEDS: TRAMADOL HCL 50 MG TABLET PO ×2 (07:50→19:39)
[2022-06-29] MEDS: ROSUVASTATIN CALCIUM 20 MG TABLET PO (07:50)
[2022-06-29] MEDS: POTASSIUM CHLORIDE 20 MEQ TAB.ER.PRT 40 MEQ PO ×2 (07:50→15:23)
--- NOTE | 2022-06-29 12:16 | PC.NURSE ---
BP's: Evaluated by CORRECTIONAL CASEWORK SPECIALIST. Continue to monitor. Systolic values in 140's is okay.
--- NOTE | 2022-06-29 12:20 | PC.NURSE ---
Status: PRESALES SENIOR SPECIALIST here. Fall on 06/22 noted.
[2022-06-29] MEDS: ACETAMINOPHEN 325 MG TABLET 650 MG PO (15:56)
--- NOTE | 2022-06-29 21:31 | PC.NURSE ---
Week #4: Care plan problems 40-119 and temporary care plan reviewed. No changes made. Changes made to temporary care plan are: 06/22/22 Fall from recliner face downward. Bruise to right side of forehead. Patient attempted to stand up and walk to bathroom. Goal is for no further falls. Immediate intervention is to check resident and offer toilet after PM report. Make sure call light is in reach. Alarm when in recliner. No changes noted in communication, hearing, vision, orientation. She does communicate needs. No hearing issues. Wears glasses. Chronic health condition stable. Staff administers medications. Mood/Behavior: No issues. Continues on Buspar 10mg BID, Prozac 60mg daily with no adverse effects noted. No change in medications.
[2022-06-30] MEDS: AMLODIPINE 10 MG TABLET PO (07:51)
[2022-06-30] MEDS: INSULIN GLARGINE,HUM.REC.ANLOG 100 UNIT/ML INSULN.PEN 22 UNIT SUBCUT (07:51)
[2022-06-30] MEDS: ASPIRIN EC 325 MG TABLET PO (07:51)
[2022-06-30] MEDS: BUSPIRONE 10 MG TABLET PO ×2 (07:51→15:51)
[2022-06-30] MEDS: FLUOXETINE HCL 20 MG CAPSULE PO (07:51)
[2022-06-30] MEDS: FLUOXETINE HCL 40 MG CAPSULE PO (07:51)
[2022-06-30] MEDS: lisinopriL 40 MG TABLET PO (07:52)
[2022-06-30] MEDS: ROSUVASTATIN CALCIUM 20 MG TABLET PO (07:52)
[2022-06-30] MEDS: FUROSEMIDE 40 MG TABLET 20 MG PO (07:52)
[2022-06-30] MEDS: PRESERVISION AREDS 1 EACH PO ×2 (07:52→15:52)
[2022-06-30] MEDS: METOPROLOL TARTRATE 50 MG TABLET PO ×2 (07:52→15:51)
[2022-06-30] MEDS: POTASSIUM CHLORIDE 20 MEQ TAB.ER.PRT 40 MEQ PO ×2 (07:52→15:52)
[2022-06-30] MEDS: TRAMADOL HCL 50 MG TABLET PO ×2 (07:52→20:06)
[2022-07-01] MEDS: BUSPIRONE 10 MG TABLET PO ×2 (08:17→15:29)
[2022-07-01] MEDS: ASPIRIN EC 325 MG TABLET PO (08:17)
[2022-07-01] MEDS: AMLODIPINE 10 MG TABLET PO (08:17)
[2022-07-01] MEDS: FUROSEMIDE 40 MG TABLET 20 MG PO (08:18)
[2022-07-01] MEDS: FLUOXETINE HCL 20 MG CAPSULE PO (08:18)
[2022-07-01] MEDS: FLUOXETINE HCL 40 MG CAPSULE PO (08:18)
[2022-07-01] MEDS: lisinopriL 40 MG TABLET PO (08:18)
[2022-07-01] MEDS: METOPROLOL TARTRATE 50 MG TABLET PO ×2 (08:19→15:29)
[2022-07-01] MEDS: PRESERVISION AREDS 1 EACH PO ×2 (08:19→15:29)
[2022-07-01] MEDS: ROSUVASTATIN CALCIUM 20 MG TABLET PO (08:20)
[2022-07-01] MEDS: POTASSIUM CHLORIDE 20 MEQ TAB.ER.PRT 40 MEQ PO ×2 (08:20→15:29)
[2022-07-01] MEDS: TRAMADOL HCL 50 MG TABLET PO ×2 (08:21→20:50)
[2022-07-01] MEDS: INSULIN GLARGINE,HUM.REC.ANLOG 100 UNIT/ML INSULN.PEN 22 UNIT SUBCUT (08:28)
[2022-07-02] MEDS: BUSPIRONE 10 MG TABLET PO ×2 (07:32→16:08)
[2022-07-02] MEDS: AMLODIPINE 10 MG TABLET PO (07:32)
[2022-07-02] MEDS: ASPIRIN EC 325 MG TABLET PO (07:32)
[2022-07-02] MEDS: FLUOXETINE HCL 40 MG CAPSULE PO (07:33)
[2022-07-02] MEDS: FLUOXETINE HCL 20 MG CAPSULE PO (07:33)
[2022-07-02] MEDS: lisinopriL 40 MG TABLET PO (07:33)
[2022-07-02] MEDS: METOPROLOL TARTRATE 50 MG TABLET PO ×2 (07:33→16:08)
[2022-07-02] MEDS: FUROSEMIDE 40 MG TABLET 20 MG PO (07:33)
[2022-07-02] MEDS: POTASSIUM CHLORIDE 20 MEQ TAB.ER.PRT 40 MEQ PO ×2 (07:34→16:09)
[2022-07-02] MEDS: PRESERVISION AREDS 1 EACH PO ×2 (07:34→16:09)
[2022-07-02] MEDS: ROSUVASTATIN CALCIUM 20 MG TABLET PO (07:35)
[2022-07-02] MEDS: TRAMADOL HCL 50 MG TABLET PO ×2 (07:35→20:22)
[2022-07-02] MEDS: INSULIN GLARGINE,HUM.REC.ANLOG 100 UNIT/ML INSULN.PEN 22 UNIT SUBCUT (08:39)
--- NOTE | 2022-07-03 05:08 | PC.NURSE ---
Had only 75mL of pale yellow urine in drainage bag. Brief very wet. Resident refused to allow to be changed x2. Alternate caregiver attempted without success.
[2022-07-03] MEDS: AMLODIPINE 10 MG TABLET PO (07:54)
[2022-07-03] MEDS: BUSPIRONE 10 MG TABLET PO ×2 (07:54→15:27)
[2022-07-03] MEDS: ASPIRIN EC 325 MG TABLET PO (07:54)
[2022-07-03] MEDS: FLUOXETINE HCL 20 MG CAPSULE PO (07:55)
[2022-07-03] MEDS: FLUOXETINE HCL 40 MG CAPSULE PO (07:55)
[2022-07-03] MEDS: lisinopriL 40 MG TABLET PO (07:55)
[2022-07-03] MEDS: FUROSEMIDE 40 MG TABLET 20 MG PO (07:55)
[2022-07-03] MEDS: PRESERVISION AREDS 1 EACH PO ×2 (07:56→15:29)
[2022-07-03] MEDS: METOPROLOL TARTRATE 50 MG TABLET PO ×2 (07:56→15:27)
[2022-07-03] MEDS: ROSUVASTATIN CALCIUM 20 MG TABLET PO (07:57)
[2022-07-03] MEDS: POTASSIUM CHLORIDE 20 MEQ TAB.ER.PRT 40 MEQ PO ×2 (07:57→15:29)
[2022-07-03] MEDS: TRAMADOL HCL 50 MG TABLET PO ×2 (08:00→19:49)
[2022-07-03] MEDS: INSULIN GLARGINE,HUM.REC.ANLOG 100 UNIT/ML INSULN.PEN 22 UNIT SUBCUT (08:05)
[2022-07-03 09:16] VITALS: TEMP 36.4; O2SAT 97
--- NOTE | 2022-07-03 13:28 | PC.NURSE ---
COVID OUTBREAK TESTING: Resident provided verbal consent for outbreak COVID testing. Resident is currently asymptomatic. Resident/family will be notified only if resident is positive.
[2022-07-03 17:20] LABS: SARS PCR* Negative SARS-CoV-2 (Negative)
--- NOTE | 2022-07-03 21:40 | PC.NURSE ---
Skin Care; Bruise and swelling on right eye has resolved. Resident has no more pain or discomfort anymore.
[2022-07-03 23:00] VITALS: TEMP 36.1; O2SAT 92
[2022-07-04 07:00] VITALS: TEMP 36.3; O2SAT 98
[2022-07-04] MEDS: BUSPIRONE 10 MG TABLET PO ×2 (08:32→16:16)
[2022-07-04] MEDS: lisinopriL 40 MG TABLET PO (08:32)
[2022-07-04] MEDS: FUROSEMIDE 40 MG TABLET 20 MG PO (08:32)
[2022-07-04] MEDS: INSULIN GLARGINE,HUM.REC.ANLOG 100 UNIT/ML INSULN.PEN 22 UNIT SUBCUT (08:32)
[2022-07-04] MEDS: ASPIRIN EC 325 MG TABLET PO (08:32)
[2022-07-04] MEDS: FLUOXETINE HCL 40 MG CAPSULE PO (08:32)
[2022-07-04] MEDS: FLUOXETINE HCL 20 MG CAPSULE PO (08:32)
[2022-07-04] MEDS: TRAMADOL HCL 50 MG TABLET PO ×2 (08:33→19:37)
[2022-07-04] MEDS: METOPROLOL TARTRATE 50 MG TABLET PO ×2 (08:33→16:16)
[2022-07-04] MEDS: ROSUVASTATIN CALCIUM 20 MG TABLET PO (08:33)
[2022-07-04] MEDS: POTASSIUM CHLORIDE 20 MEQ TAB.ER.PRT 40 MEQ PO ×2 (08:33→16:17)
[2022-07-04] MEDS: PRESERVISION AREDS 1 EACH PO ×2 (08:33→16:16)
[2022-07-04] MEDS: AMLODIPINE 10 MG TABLET PO (08:43)
[2022-07-04 15:00] VITALS: BP 133/75; PULSE 60; PULSE 74; RESP 18; TEMP 37; O2SAT 97
[2022-07-04 23:00] VITALS: TEMP 36.6; O2SAT 96
[2022-07-05 07:00] VITALS: TEMP 36.6; O2SAT 96
[2022-07-05] MEDS: AMLODIPINE 10 MG TABLET PO (08:21)
[2022-07-05] MEDS: INSULIN GLARGINE,HUM.REC.ANLOG 100 UNIT/ML INSULN.PEN 22 UNIT SUBCUT (08:21)
[2022-07-05] MEDS: ASPIRIN EC 325 MG TABLET PO (08:21)
[2022-07-05] MEDS: BUSPIRONE 10 MG TABLET PO ×2 (08:21→15:30)
[2022-07-05] MEDS: ROSUVASTATIN CALCIUM 20 MG TABLET PO (08:22)
[2022-07-05] MEDS: TRAMADOL HCL 50 MG TABLET PO ×2 (08:22→19:36)
[2022-07-05] MEDS: FLUOXETINE HCL 20 MG CAPSULE PO (08:22)
[2022-07-05] MEDS: lisinopriL 40 MG TABLET PO (08:22)
[2022-07-05] MEDS: PRESERVISION AREDS 1 EACH PO ×2 (08:22→15:30)
[2022-07-05] MEDS: POTASSIUM CHLORIDE 20 MEQ TAB.ER.PRT 40 MEQ PO ×2 (08:22→15:30)
[2022-07-05] MEDS: FUROSEMIDE 40 MG TABLET 20 MG PO (08:22)
[2022-07-05] MEDS: METOPROLOL TARTRATE 50 MG TABLET PO ×2 (08:22→15:30)
[2022-07-05] MEDS: FLUOXETINE HCL 40 MG CAPSULE PO (08:22)
[2022-07-05 15:00] VITALS: TEMP 35.9; O2SAT 95
[2022-07-05 23:00] VITALS: TEMP 37.1; O2SAT 94
--- NOTE | 2022-07-06 03:37 | PC.NURSE ---
WEEKLY CHARTING - WEEK 1: Vital signs reviewed. Temporary and comprehensive care plan reviewed - no change. Has hx of pain in bladder, stomach, and knee. Receives scheduled pregabalin and tramadol for pain management. Requires extensive assist of 1 with dressing, grooming, and bathing. Able to complete oral cares independently after set-up. Receives a regular diet with large portions per request. Able to feed self after set-up.
[2022-07-06] MEDS: ASPIRIN EC 325 MG TABLET PO (08:38)
[2022-07-06] MEDS: AMLODIPINE 10 MG TABLET PO (08:38)
[2022-07-06] MEDS: POTASSIUM CHLORIDE 20 MEQ TAB.ER.PRT 40 MEQ PO ×2 (08:39→16:06)
[2022-07-06] MEDS: BUSPIRONE 10 MG TABLET PO (08:39)
[2022-07-06] MEDS: METOPROLOL TARTRATE 50 MG TABLET PO ×2 (08:39→16:06)
[2022-07-06] MEDS: ROSUVASTATIN CALCIUM 20 MG TABLET PO (08:39)
[2022-07-06] MEDS: TRAMADOL HCL 50 MG TABLET PO ×2 (08:39→19:36)
[2022-07-06] MEDS: PRESERVISION AREDS 1 EACH PO ×2 (08:39→16:06)
[2022-07-06] MEDS: FLUOXETINE HCL 20 MG CAPSULE PO (08:39)
[2022-07-06] MEDS: lisinopriL 40 MG TABLET PO (08:39)
[2022-07-06] MEDS: INSULIN GLARGINE,HUM.REC.ANLOG 100 UNIT/ML INSULN.PEN 22 UNIT SUBCUT (08:39)
[2022-07-06] MEDS: FLUOXETINE HCL 40 MG CAPSULE PO (08:39)
[2022-07-06] MEDS: FUROSEMIDE 40 MG TABLET 20 MG PO (08:39)
[2022-07-06 10:37] VITALS: TEMP 36.4; O2SAT 97
--- NOTE | 2022-07-06 12:15 | PC.NURSE ---
Order: Discontinue Buspar 10mg BID. New: Buspar 10mg QAM, 5mg QPM by Artemio FLAHERTY.
[2022-07-06 15:00] VITALS: TEMP 36.9; O2SAT 96
[2022-07-06] MEDS: BACITRACIN OINTMENT BULK TUBE 1 APPLIC TOPICAL (15:58)
--- NOTE | 2022-07-06 17:08 | PC.NURSE ---
Week #1: Vital signs, Care plan problems 1-19, and temporary care plan reviewed. No changes made at this time. Resident needs extensive one assist with dressing, grooming and bathing - but encouragement and cues needed in order to participate in those ADL tasks including performing oral cares and dressing her top half after set up assist. Resident is on regular diet as she receives large portions/request. Eats independently after meal tray set-up. No problems noted in chewing or swallowing. Pain: Pain regimen such as Lyrica 300mg BID, and Ultram 50mg BID manages resident's pain. Resident has the ability to verbalized pain.
[2022-07-06 23:00] VITALS: TEMP 36.4; O2SAT 97
[2022-07-07] MEDS: INSULIN GLARGINE,HUM.REC.ANLOG 100 UNIT/ML INSULN.PEN 22 UNIT SUBCUT (08:37)
[2022-07-07] MEDS: AMLODIPINE 10 MG TABLET PO (08:39)
[2022-07-07] MEDS: BACITRACIN OINTMENT BULK TUBE 1 APPLIC TOPICAL ×2 (08:40→16:10)
[2022-07-07] MEDS: FLUOXETINE HCL 20 MG CAPSULE PO (08:40)
[2022-07-07] MEDS: ASPIRIN EC 325 MG TABLET PO (08:40)
[2022-07-07] MEDS: FLUOXETINE HCL 40 MG CAPSULE PO (08:40)
[2022-07-07] MEDS: lisinopriL 40 MG TABLET PO (08:41)
[2022-07-07] MEDS: METOPROLOL TARTRATE 50 MG TABLET PO ×2 (08:41→16:10)
[2022-07-07] MEDS: PRESERVISION AREDS 1 EACH PO ×2 (08:41→16:10)
[2022-07-07] MEDS: FUROSEMIDE 40 MG TABLET 20 MG PO (08:41)
[2022-07-07] MEDS: POTASSIUM CHLORIDE 20 MEQ TAB.ER.PRT 40 MEQ PO ×2 (08:44→16:10)
[2022-07-07] MEDS: TRAMADOL HCL 50 MG TABLET PO ×2 (08:45→20:47)
[2022-07-07] MEDS: ROSUVASTATIN CALCIUM 20 MG TABLET PO (08:45)
[2022-07-07] MEDS: BUSPIRONE 10 MG TABLET PO (08:48)
[2022-07-07 10:40] VITALS: TEMP 36.4; O2SAT 96
[2022-07-07 15:00] VITALS: TEMP 35.9; O2SAT 95
[2022-07-07] MEDS: BUSPIRONE 10 MG TABLET 5 MG PO (21:34)
[2022-07-07 23:00] VITALS: TEMP 36.6; O2SAT 95
[2022-07-08] MEDS: BACITRACIN OINTMENT BULK TUBE 1 APPLIC TOPICAL ×2 (07:37→15:47)
[2022-07-08] MEDS: AMLODIPINE 10 MG TABLET PO (07:37)
[2022-07-08] MEDS: ASPIRIN EC 325 MG TABLET PO (07:37)
[2022-07-08] MEDS: METOPROLOL TARTRATE 50 MG TABLET PO ×2 (07:38→15:47)
[2022-07-08] MEDS: lisinopriL 40 MG TABLET PO (07:38)
[2022-07-08] MEDS: PRESERVISION AREDS 1 EACH PO ×2 (07:38→15:48)
[2022-07-08] MEDS: FLUOXETINE HCL 20 MG CAPSULE PO (07:38)
[2022-07-08] MEDS: FLUOXETINE HCL 40 MG CAPSULE PO (07:38)
[2022-07-08] MEDS: FUROSEMIDE 40 MG TABLET 20 MG PO (07:38)
[2022-07-08] MEDS: TRAMADOL HCL 50 MG TABLET PO ×2 (07:39→19:14)
[2022-07-08] MEDS: POTASSIUM CHLORIDE 20 MEQ TAB.ER.PRT 40 MEQ PO ×2 (07:39→15:48)
[2022-07-08] MEDS: ROSUVASTATIN CALCIUM 20 MG TABLET PO (07:39)
[2022-07-08] MEDS: INSULIN GLARGINE,HUM.REC.ANLOG 100 UNIT/ML INSULN.PEN 22 UNIT SUBCUT (08:29)
[2022-07-08] MEDS: BUSPIRONE 10 MG TABLET PO (08:51)
[2022-07-08 10:41] VITALS: TEMP 36.6; O2SAT 97
[2022-07-08 15:00] VITALS: TEMP 36.3; O2SAT 97
[2022-07-08] MEDS: BUSPIRONE 10 MG TABLET 5 MG PO (19:14)
[2022-07-08 23:00] VITALS: TEMP 36.6; O2SAT 96
[2022-07-09] MEDS: ASPIRIN EC 325 MG TABLET PO (07:12)
[2022-07-09] MEDS: FLUOXETINE HCL 20 MG CAPSULE PO (07:12)
[2022-07-09] MEDS: FLUOXETINE HCL 40 MG CAPSULE PO (07:12)
[2022-07-09] MEDS: AMLODIPINE 10 MG TABLET PO (07:12)
[2022-07-09] MEDS: BACITRACIN OINTMENT BULK TUBE 1 APPLIC TOPICAL (07:12)
[2022-07-09] MEDS: METOPROLOL TARTRATE 50 MG TABLET PO ×2 (07:13→15:11)
[2022-07-09] MEDS: PRESERVISION AREDS 1 EACH PO ×2 (07:13→15:11)
[2022-07-09] MEDS: FUROSEMIDE 40 MG TABLET 20 MG PO (07:13)
[2022-07-09] MEDS: lisinopriL 40 MG TABLET PO (07:13)
[2022-07-09] MEDS: POTASSIUM CHLORIDE 20 MEQ TAB.ER.PRT 40 MEQ PO ×2 (07:14→15:11)
[2022-07-09] MEDS: ROSUVASTATIN CALCIUM 20 MG TABLET PO (07:14)
[2022-07-09] MEDS: TRAMADOL HCL 50 MG TABLET PO ×2 (07:14→20:08)
[2022-07-09] MEDS: INSULIN GLARGINE,HUM.REC.ANLOG 100 UNIT/ML INSULN.PEN 22 UNIT SUBCUT (08:36)
[2022-07-09] MEDS: BUSPIRONE 10 MG TABLET PO (08:36)
[2022-07-09 12:52] VITALS: TEMP 36.8; O2SAT 94
[2022-07-09 15:00] VITALS: TEMP 36.1; O2SAT 95
[2022-07-09] MEDS: BUSPIRONE 10 MG TABLET 5 MG PO (20:08)
[2022-07-09 23:00] VITALS: TEMP 36; O2SAT 96
[2022-07-10 02:32] VITALS: TEMP 36; O2SAT 96
[2022-07-10] MEDS: ASPIRIN EC 325 MG TABLET PO (07:38)
[2022-07-10] MEDS: AMLODIPINE 10 MG TABLET PO (07:38)
[2022-07-10] MEDS: METOPROLOL TARTRATE 50 MG TABLET PO ×2 (07:39→16:03)
[2022-07-10] MEDS: FLUOXETINE HCL 40 MG CAPSULE PO (07:39)
[2022-07-10] MEDS: FLUOXETINE HCL 20 MG CAPSULE PO (07:39)
[2022-07-10] MEDS: FUROSEMIDE 40 MG TABLET 20 MG PO (07:39)
[2022-07-10] MEDS: lisinopriL 40 MG TABLET PO (07:39)
[2022-07-10] MEDS: POTASSIUM CHLORIDE 20 MEQ TAB.ER.PRT 40 MEQ PO (07:40)
[2022-07-10] MEDS: PRESERVISION AREDS 1 EACH PO (07:40)
[2022-07-10] MEDS: TRAMADOL HCL 50 MG TABLET PO ×2 (07:41→19:18)
[2022-07-10] MEDS: ROSUVASTATIN CALCIUM 20 MG TABLET PO (07:41)
[2022-07-10] MEDS: INSULIN GLARGINE,HUM.REC.ANLOG 100 UNIT/ML INSULN.PEN 22 UNIT SUBCUT (08:29)
[2022-07-10] MEDS: BUSPIRONE 10 MG TABLET PO (08:29)
--- NOTE | 2022-07-10 11:01 | PC.NURSE ---
Status: Daughter Katarzyna called and updated about residents emesis
--- NOTE | 2022-07-10 11:45 | PC.NURSE ---
Loose stool - Pt experienced loose stool episode 07/10/22. Pt experienced emesis episode 07/10/22. Implemented isolation precautions for pt. All staff to wear contact precaution PPE. Used standing orders for COVID/FLU A&B test. Called [employer] - Order sent for RSV and Norovirus tests. Family notified. T: 96.8. No other symptoms.
[2022-07-10 13:29] VITALS: TEMP 36.3; O2SAT 96
--- NOTE | 2022-07-10 13:31 | PC.NURSE ---
Status; Resident has not had any intake this shift with 4 emesis and 2 loose BM's
[2022-07-10 14:32] LABS: PCR FLU A Negative PCR FLU A (Negative); PCR FLU B Negative PCR FLU B (Negative); PCR RSV Negative PCR RSV (Negative)
[2022-07-10 14:42] LABS: SARS PCR* Negative SARS-CoV-2 (Negative)
[2022-07-10] MEDS: BUSPIRONE 10 MG TABLET 5 MG PO (19:18)
[2022-07-10 21:11] VITALS: TEMP 37; O2SAT 96
[2022-07-10 21:26] VITALS: BP 174/80; PULSE 85; RESP 28; TEMP 37.3; O2SAT 95
--- NOTE | 2022-07-10 21:27 | PC.NURSE ---
Addendum entered by Nicol Silva 07/10/22 21:37: Resident also has two emesis on the pm shift prior to the episode. Original Note: Status: Resident has a possible seizure on the PM shift at around 1945. ANISH witnessed episode and reported that she was shaking all over and turning on to her right side while reaching out as if she was trying to grab something. Episode lasted 15-30 seconds when teletypewriter installer arrived episode was over and resident was having a small emesis. Resident responded to teletypewriter installer when asked if she was feeling okay. VS and neuro check done. BP and respirations are up and neuro check is within normal limits.
--- NOTE | 2022-07-10 21:34 | PC.NURSE ---
Skin: Resident has some blood in pad and redness on the right side of her labia majora. No active bleeding at this time. Sensi care applied and monitoring.
[2022-07-10 23:00] VITALS: TEMP 36.8; O2SAT 91
--- NOTE | 2022-07-11 05:48 | PC.NURSE ---
Resident did not have loose or emesis during night. Will continue with the isolation.
--- NOTE | 2022-07-11 10:11 | PC.NURSE ---
Resident`s Status: Resident was found in the midst of vomiting L/A today by staff in the industrial engineering intern. She also had L/A of diarrhoea. Resident refused medication and any food. She look very lethargic. Her vitals are as follows: Temp 97.8 , P ; 78 O2 95 B/P 138/ 82 . Staff will continue to monitor resident.
--- NOTE | 2022-07-11 11:30 | PC.NURSE ---
Status: GREEN END WORKER here, updated of possible seizure on 07/10/22. Recommends to monitor.
[2022-07-11 12:11] VITALS: TEMP 36.6; O2SAT 96
--- NOTE | 2022-07-11 14:16 | PC.NURSE ---
Resident has been in bed all morning during this shift. She is very nauseated and refused any food or drinks. She did take a few sips of Savanna Elena, she did not have any more emesis or diarrhoea.
[2022-07-11 15:00] VITALS: BP 159/85; PULSE 95; RESP 22; TEMP 37.1; O2SAT 95
[2022-07-11] MEDS: INSULIN GLARGINE,HUM.REC.ANLOG 100 UNIT/ML INSULN.PEN 22 UNIT SUBCUT (15:23)
--- NOTE | 2022-07-11 15:23 | PC.NURSE ---
Emesis and Diarrhoea : Resident had L/A emesis and loose stool (yellowish) at 1445. Blood sugar was checked and it was 240. received instruction from DIEUDONNE Morales to give her schedule dose of insulin which was held in the morning. Her insulin 22unit was given at 1530 hours. Resident has not taken anything orally since morning.
--- NOTE | 2022-07-11 16:00 | PC.NURSE ---
AIR BRAKES INSPECTOR update: Spoke to Bonnie Ulloa AIR BRAKES INSPECTOR that resident had not be given insulin this am. Advised with BS reading in the 240's to give insulin at this time. Spoke to the floor nurse to administer at this time.
[2022-07-11] MEDS: POTASSIUM CHLORIDE 20 MEQ TAB.ER.PRT 40 MEQ PO (16:43)
[2022-07-11] MEDS: METOPROLOL TARTRATE 50 MG TABLET PO (16:43)
[2022-07-11] MEDS: PRESERVISION AREDS 1 EACH PO (16:43)
[2022-07-11] MEDS: TRAMADOL HCL 50 MG TABLET PO (19:38)
[2022-07-11] MEDS: BUSPIRONE 10 MG TABLET 5 MG PO (19:38)
[2022-07-11 20:00] VITALS: BMI 32.5
[2022-07-11 23:00] VITALS: TEMP 37.1; O2SAT 92
[2022-07-12] MEDS: METOPROLOL TARTRATE 50 MG TABLET PO ×2 (08:23→15:31)
[2022-07-12] MEDS: lisinopriL 40 MG TABLET PO (08:23)
[2022-07-12] MEDS: FLUOXETINE HCL 20 MG CAPSULE PO (08:23)
[2022-07-12] MEDS: ASPIRIN EC 325 MG TABLET PO (08:23)
[2022-07-12] MEDS: FUROSEMIDE 40 MG TABLET 20 MG PO (08:23)
[2022-07-12] MEDS: FLUOXETINE HCL 40 MG CAPSULE PO (08:23)
[2022-07-12] MEDS: AMLODIPINE 10 MG TABLET PO (08:23)
[2022-07-12] MEDS: POTASSIUM CHLORIDE 20 MEQ TAB.ER.PRT 40 MEQ PO ×2 (08:24→15:31)
[2022-07-12] MEDS: TRAMADOL HCL 50 MG TABLET PO ×2 (08:24→19:58)
[2022-07-12] MEDS: BUSPIRONE 10 MG TABLET PO (08:24)
[2022-07-12] MEDS: PRESERVISION AREDS 1 EACH PO ×2 (08:24→15:31)
[2022-07-12] MEDS: ROSUVASTATIN CALCIUM 20 MG TABLET PO (08:24)
[2022-07-12] MEDS: INSULIN GLARGINE,HUM.REC.ANLOG 100 UNIT/ML INSULN.PEN 22 UNIT SUBCUT (08:48)
[2022-07-12 13:37] VITALS: TEMP 36.6; O2SAT 97
[2022-07-12 15:00] VITALS: TEMP 36.3; O2SAT 95
[2022-07-12] MEDS: BUSPIRONE 10 MG TABLET 5 MG PO (19:58)
--- NOTE | 2022-07-12 21:41 | PC.NURSE ---
Status: Resident had no emesis, but continues to be nauseated and gagged on scheduled 1600 pills. Drank 240ccs of water with medication administration. Poor appetite and offered soup for supper but refused. Did eat few bites of pudding. Did drink 240ccs of cranberry juice and sips of diet coke per her request. No BM this shift. Denies any pain or discomfort.
[2022-07-12 23:00] VITALS: TEMP 36.4; O2SAT 92
--- NOTE | 2022-07-13 02:40 | PC.NURSE ---
WEEKLY CHARTING - WEEK 2: Vital signs reviewed. Temporary and comprehensive care plan reviewed - no change. Requires assist of 1 with EZ stand for all transfers. non-ambulatory. Refuses to be turned in bed. Total assist for w/c mobility. Is at high risk for falls per last fall risk assessment. Fall interventions include: bed in low position, call light in reach, gripper socks for all transfers.
--- NOTE | 2022-07-13 05:47 | PC.NURSE ---
No loose stools or emesis this shift. Resident reports feeling better. Temp 97.7.
--- NOTE | 2022-07-13 07:09 | PC.NURSE ---
Week #2 - Mobility: Comprehensive care plan reviewed, no changes made. Nothing added to temporary care plan. Is non ambulatory. Needs one assist and medi stand for transfers. Staff propel to all destinations. Needs one assist with bed mobility. Staff assist as needed. Has an alarm in recliner. Vital signs reviewed, occasional elevated BP's . Continue weekly VS monitoring. Fall: Had a fall on 06/22/22, fall from recliner attempting to stand up to walk to the bathroom. Immediate intervention: Alarm when in recliner, call light within reach, check/offer toilet start of shift. Remains a high fall risk according to assessment done on 05/04/22.
[2022-07-13] MEDS: FUROSEMIDE 40 MG TABLET 20 MG PO (07:51)
[2022-07-13] MEDS: FLUOXETINE HCL 20 MG CAPSULE PO (07:51)
[2022-07-13] MEDS: FLUOXETINE HCL 40 MG CAPSULE PO (07:51)
[2022-07-13] MEDS: ASPIRIN EC 325 MG TABLET PO (07:51)
[2022-07-13] MEDS: AMLODIPINE 10 MG TABLET PO (07:51)
[2022-07-13] MEDS: METOPROLOL TARTRATE 50 MG TABLET PO ×2 (07:52→17:04)
[2022-07-13] MEDS: lisinopriL 40 MG TABLET PO (07:52)
[2022-07-13] MEDS: PRESERVISION AREDS 1 EACH PO ×2 (07:52→17:04)
[2022-07-13] MEDS: POTASSIUM CHLORIDE 20 MEQ TAB.ER.PRT 40 MEQ PO ×2 (07:53→17:04)
[2022-07-13] MEDS: ROSUVASTATIN CALCIUM 20 MG TABLET PO (07:54)
[2022-07-13] MEDS: TRAMADOL HCL 50 MG TABLET PO ×2 (07:54→19:57)
[2022-07-13] MEDS: INSULIN GLARGINE,HUM.REC.ANLOG 100 UNIT/ML INSULN.PEN 22 UNIT SUBCUT (08:17)
[2022-07-13] MEDS: BUSPIRONE 10 MG TABLET PO (08:17)
[2022-07-13 10:08] VITALS: TEMP 36.8; O2SAT 94
--- NOTE | 2022-07-13 12:48 | PC.NURSE ---
Status: Resident has had no food intake this shift and about 200cc of fluid intake. Did have 1 loose BM but no emesis but did report nausea. Skin color is pale. B/P 180/77, R18, P64, O2 on RA 96% temp 98.1.
--- NOTE | 2022-07-13 12:57 | PC.NURSE ---
Daughter updated on poor health status, resident is more weak, has a poor appetite, taking little in for fluids, and wanting to rest more in bed.
--- NOTE | 2022-07-13 14:18 | PC.NURSE ---
Order: Recieved RBTO Zofran 4 mg PO Q6H PRN nausea x 1 week by Artemio FLAHERTY.
[2022-07-13 15:00] VITALS: TEMP 35.9; O2SAT 95
[2022-07-13] MEDS: BUSPIRONE 10 MG TABLET 5 MG PO (19:57)
--- NOTE | 2022-07-13 22:06 | PC.NURSE ---
Status: Resident had no emesis or BM this shift. Afebrile. Poor appetite and refused supper or snacks. Did have sips of kristie trena.
[2022-07-13 23:00] VITALS: TEMP 36.1; O2SAT 96
[2022-07-14] MEDS: AMLODIPINE 10 MG TABLET PO (08:47)
[2022-07-14] MEDS: ASPIRIN EC 325 MG TABLET PO (08:48)
[2022-07-14] MEDS: PRESERVISION AREDS 1 EACH PO ×2 (08:48→15:42)
[2022-07-14] MEDS: lisinopriL 40 MG TABLET PO (08:48)
[2022-07-14] MEDS: FLUOXETINE HCL 20 MG CAPSULE PO (08:48)
[2022-07-14] MEDS: POTASSIUM CHLORIDE 20 MEQ TAB.ER.PRT 40 MEQ PO ×2 (08:48→15:42)
[2022-07-14] MEDS: FLUOXETINE HCL 40 MG CAPSULE PO (08:48)
[2022-07-14] MEDS: FUROSEMIDE 40 MG TABLET 20 MG PO (08:48)
[2022-07-14] MEDS: METOPROLOL TARTRATE 50 MG TABLET PO ×2 (08:48→15:55)
[2022-07-14] MEDS: TRAMADOL HCL 50 MG TABLET PO ×2 (08:49→19:56)
[2022-07-14] MEDS: ROSUVASTATIN CALCIUM 20 MG TABLET PO (08:49)
[2022-07-14] MEDS: BUSPIRONE 10 MG TABLET PO (08:49)
[2022-07-14] MEDS: INSULIN GLARGINE,HUM.REC.ANLOG 100 UNIT/ML INSULN.PEN 22 UNIT SUBCUT (09:03)
[2022-07-14 10:36] VITALS: TEMP 36.4; O2SAT 94
[2022-07-14] MEDS: ONDANSETRON ODT 4 MG TAB PO (12:00)
--- NOTE | 2022-07-14 13:47 | PC.NURSE ---
Status:Afebrile. Had one loose BM, no vomiting. Breakfast ate 25%, been drinking sprite & kristie trena. Didn't eat lunch. 1200 Zofran given.
[2022-07-14 15:00] VITALS: TEMP 36.9; O2SAT 95
[2022-07-14] MEDS: BUSPIRONE 10 MG TABLET 5 MG PO (19:56)
[2022-07-14 23:00] VITALS: TEMP 37; O2SAT 95
[2022-07-15 07:00] VITALS: TEMP 35.9; O2SAT 96
[2022-07-15] MEDS: FLUOXETINE HCL 40 MG CAPSULE PO (08:20)
[2022-07-15] MEDS: AMLODIPINE 10 MG TABLET PO (08:20)
[2022-07-15] MEDS: ASPIRIN EC 325 MG TABLET PO (08:20)
[2022-07-15] MEDS: METOPROLOL TARTRATE 50 MG TABLET PO ×2 (08:21→16:16)
[2022-07-15] MEDS: FLUOXETINE HCL 20 MG CAPSULE PO (08:21)
[2022-07-15] MEDS: PRESERVISION AREDS 1 EACH PO ×2 (08:21→16:16)
[2022-07-15] MEDS: FUROSEMIDE 40 MG TABLET 20 MG PO (08:21)
[2022-07-15] MEDS: lisinopriL 40 MG TABLET PO (08:21)
[2022-07-15] MEDS: ROSUVASTATIN CALCIUM 20 MG TABLET PO (08:22)
[2022-07-15] MEDS: POTASSIUM CHLORIDE 20 MEQ TAB.ER.PRT 40 MEQ PO ×2 (08:22→16:17)
[2022-07-15] MEDS: TRAMADOL HCL 50 MG TABLET PO ×2 (08:25→19:01)
[2022-07-15] MEDS: INSULIN GLARGINE,HUM.REC.ANLOG 100 UNIT/ML INSULN.PEN 22 UNIT SUBCUT (08:52)
[2022-07-15] MEDS: BUSPIRONE 10 MG TABLET PO (09:22)
[2022-07-15 15:00] VITALS: TEMP 37.1; O2SAT 95
[2022-07-15] MEDS: BUSPIRONE 10 MG TABLET 5 MG PO (19:01)
[2022-07-15 23:00] VITALS: TEMP 36.4; O2SAT 95
[2022-07-16] MEDS: ACETAMINOPHEN 325 MG TABLET 650 MG PO (06:08)
[2022-07-16 07:00] VITALS: TEMP 35.7; O2SAT 96
[2022-07-16] MEDS: FLUOXETINE HCL 40 MG CAPSULE PO (08:19)
[2022-07-16] MEDS: ASPIRIN EC 325 MG TABLET PO (08:19)
[2022-07-16] MEDS: AMLODIPINE 10 MG TABLET PO (08:19)
[2022-07-16] MEDS: FUROSEMIDE 40 MG TABLET 20 MG PO (08:20)
[2022-07-16] MEDS: METOPROLOL TARTRATE 50 MG TABLET PO ×2 (08:20→16:00)
[2022-07-16] MEDS: lisinopriL 40 MG TABLET PO (08:20)
[2022-07-16] MEDS: FLUOXETINE HCL 20 MG CAPSULE PO (08:20)
[2022-07-16] MEDS: PRESERVISION AREDS 1 EACH PO ×2 (08:20→16:00)
[2022-07-16] MEDS: ROSUVASTATIN CALCIUM 20 MG TABLET PO (08:21)
[2022-07-16] MEDS: TRAMADOL HCL 50 MG TABLET PO ×2 (08:21→19:46)
[2022-07-16] MEDS: POTASSIUM CHLORIDE 20 MEQ TAB.ER.PRT 40 MEQ PO ×2 (08:21→16:00)
[2022-07-16] MEDS: INSULIN GLARGINE,HUM.REC.ANLOG 100 UNIT/ML INSULN.PEN 22 UNIT SUBCUT (08:54)
[2022-07-16] MEDS: BUSPIRONE 10 MG TABLET PO (09:52)
[2022-07-16 15:00] VITALS: TEMP 37.2; O2SAT 94
[2022-07-16] MEDS: BUSPIRONE 10 MG TABLET 5 MG PO (19:46)
[2022-07-16 23:00] VITALS: TEMP 36.6; O2SAT 95
[2022-07-17] MEDS: AMLODIPINE 10 MG TABLET PO (07:33)
[2022-07-17] MEDS: ASPIRIN EC 325 MG TABLET PO (07:33)
[2022-07-17] MEDS: lisinopriL 40 MG TABLET PO (07:34)
[2022-07-17] MEDS: FLUOXETINE HCL 40 MG CAPSULE PO (07:34)
[2022-07-17] MEDS: METOPROLOL TARTRATE 50 MG TABLET PO ×2 (07:34→15:36)
[2022-07-17] MEDS: FUROSEMIDE 40 MG TABLET 20 MG PO (07:34)
[2022-07-17] MEDS: PRESERVISION AREDS 1 EACH PO ×2 (07:34→15:36)
[2022-07-17] MEDS: FLUOXETINE HCL 20 MG CAPSULE PO (07:34)
[2022-07-17] MEDS: TRAMADOL HCL 50 MG TABLET PO ×2 (07:35→20:14)
[2022-07-17] MEDS: ROSUVASTATIN CALCIUM 20 MG TABLET PO (07:35)
[2022-07-17] MEDS: POTASSIUM CHLORIDE 20 MEQ TAB.ER.PRT 40 MEQ PO ×2 (07:35→15:36)
[2022-07-17] MEDS: INSULIN GLARGINE,HUM.REC.ANLOG 100 UNIT/ML INSULN.PEN 22 UNIT SUBCUT (08:05)
[2022-07-17] MEDS: BUSPIRONE 10 MG TABLET PO (08:28)
[2022-07-17 10:30] VITALS: TEMP 36.2; O2SAT 92
--- NOTE | 2022-07-17 11:57 | PC.NURSE ---
COVID OUTBREAK TESTING (Antigen): Resident provided verbal consent for outbreak COVID testing. Resident is currently asymptomatic.? Resident/family will be notified only if resident is positive.
--- NOTE | 2022-07-17 13:30 | PC.NURSE ---
Status: Residents color much better this shift, ate all of both meals with no emesis or loose BM's. Temp 97.2, O2 94% on room air
[2022-07-17 14:43] LABS: SARS PCR* Negative SARS-CoV-2 (Negative)
[2022-07-17] MEDS: BUSPIRONE 10 MG TABLET 5 MG PO (20:14)
[2022-07-17 21:32] VITALS: TEMP 35.5; O2SAT 94
[2022-07-17 23:00] VITALS: TEMP 36.9; O2SAT 96
[2022-07-18] MEDS: AMLODIPINE 10 MG TABLET PO (07:41)
[2022-07-18] MEDS: ASPIRIN EC 325 MG TABLET PO (07:41)
[2022-07-18] MEDS: lisinopriL 40 MG TABLET PO (07:42)
[2022-07-18] MEDS: METOPROLOL TARTRATE 50 MG TABLET PO ×2 (07:42→15:23)
[2022-07-18] MEDS: FLUOXETINE HCL 20 MG CAPSULE PO (07:42)
[2022-07-18] MEDS: FUROSEMIDE 40 MG TABLET 20 MG PO (07:42)
[2022-07-18] MEDS: FLUOXETINE HCL 40 MG CAPSULE PO (07:42)
[2022-07-18] MEDS: ROSUVASTATIN CALCIUM 20 MG TABLET PO (07:43)
[2022-07-18] MEDS: PRESERVISION AREDS 1 EACH PO ×2 (07:43→15:23)
[2022-07-18] MEDS: POTASSIUM CHLORIDE 20 MEQ TAB.ER.PRT 40 MEQ PO ×2 (07:43→15:23)
[2022-07-18] MEDS: TRAMADOL HCL 50 MG TABLET PO ×2 (07:43→19:45)
[2022-07-18] MEDS: INSULIN GLARGINE,HUM.REC.ANLOG 100 UNIT/ML INSULN.PEN 22 UNIT SUBCUT (07:52)
[2022-07-18] MEDS: BUSPIRONE 10 MG TABLET PO (08:18)
--- NOTE | 2022-07-18 09:39 | PC.SPIRITC ---
Shaista expressed deep sadness over learning that her sister, Celine, is dying. I provided support and time to process the news. I will follow up for support and to help Shaista write a card to her sister.
[2022-07-18 10:50] VITALS: TEMP 36.5; O2SAT 98
--- NOTE | 2022-07-18 19:00 | PC.NURSE ---
Daughter updated that resident is looking and feeling better than she was last week. Is off isolation and went out for meal/activities today.
[2022-07-18] MEDS: BUSPIRONE 10 MG TABLET 5 MG PO (19:45)
[2022-07-18 21:09] VITALS: BP 158/85; PULSE 63; RESP 18; TEMP 36.5; O2SAT 97; BMI 31.1
[2022-07-18 23:00] VITALS: TEMP 36.4; O2SAT 94
[2022-07-19 07:00] VITALS: TEMP 36.6; O2SAT 96
[2022-07-19] MEDS: METOPROLOL TARTRATE 50 MG TABLET PO ×2 (08:21→15:30)
[2022-07-19] MEDS: lisinopriL 40 MG TABLET PO (08:21)
[2022-07-19] MEDS: FLUOXETINE HCL 20 MG CAPSULE PO (08:22)
[2022-07-19] MEDS: FUROSEMIDE 40 MG TABLET 20 MG PO (08:22)
[2022-07-19] MEDS: POTASSIUM CHLORIDE 20 MEQ TAB.ER.PRT 40 MEQ PO ×2 (08:23→15:30)
[2022-07-19] MEDS: PRESERVISION AREDS 1 EACH PO ×2 (08:23→15:30)
[2022-07-19] MEDS: ROSUVASTATIN CALCIUM 20 MG TABLET PO (08:23)
--- NOTE | 2022-07-19 08:23 | PC.PHA ---
MEDICATION REVIEW MEDICATION MONITORING: Fluoxetine 40 mg and 20 mg daily on AUG (60 mg total) for depression and forms of outburst. Buspar 10 mg qam and 5 mg hs started since last review and this is her current GDR in process. 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 All orders reviewed. IRREGULARITY/COMMENTS: Patient's blood pressures continue to run high, I did read provider note that 140s are fine and I do note mobility issues but also know of patients significant stroke history. Depending on patient's next physical exam regarding heart rate and signs of edema, her hypertension regimen may contain some options for adjustment. SUGGESTED COURSE OF ACTION: If blood pressures continue to consistently run 150's and above patient may need adjustments in her blood pressure medication regimen.
[2022-07-19] MEDS: TRAMADOL HCL 50 MG TABLET PO ×2 (08:24→20:12)
[2022-07-19] MEDS: FLUOXETINE HCL 40 MG CAPSULE PO (08:26)
[2022-07-19] MEDS: INSULIN GLARGINE,HUM.REC.ANLOG 100 UNIT/ML INSULN.PEN 22 UNIT SUBCUT (08:26)
[2022-07-19] MEDS: AMLODIPINE 10 MG TABLET PO (08:26)
[2022-07-19] MEDS: ASPIRIN EC 325 MG TABLET PO (08:26)
[2022-07-19] MEDS: BUSPIRONE 10 MG TABLET PO (09:01)
[2022-07-19 15:00] VITALS: TEMP 36.4; O2SAT 96
--- NOTE | 2022-07-19 16:13 | PC.SPIRITC ---
I helped Shaista to write a card to her sister and provided visit for ongoing support.
[2022-07-19] MEDS: BUSPIRONE 10 MG TABLET 5 MG PO (20:12)
[2022-07-19 23:00] VITALS: TEMP 36.3; O2SAT 93
--- NOTE | 2022-07-20 04:30 | PC.NURSE ---
Addendum entered by Xin Lin RN 07/20/22 04:48: Skin: Currently has - scratches on bilateral sides of lower abdomen being treated with application of bacitracin BID. redness and bleeding to labia majora with sensicare being applied BID, and dressing change to suprapubic catheter stoma site- clean with soap and water, then apply gauze dressing BID. Original Note: WEEKLY CHARTING - WEEK 3: Vital signs reviewed. Temporary and comprehensive care plan reviewed - no change. Suprapubic catheter in place r/t neurogenic bladder. Leaks urine through urethra at times. Frequency of urethral leaking has been increasing lately. Generally continent of bowel. Wears pull-up. Requires assist of 1 with all toileting needs including catheter care, transfers with EZ stand to/from toilet, clothing/pad management, and edward-cares.
[2022-07-20 07:00] VITALS: TEMP 36.4; O2SAT 99
[2022-07-20] MEDS: FLUOXETINE HCL 40 MG CAPSULE PO (08:13)
[2022-07-20] MEDS: ASPIRIN EC 325 MG TABLET PO (08:13)
[2022-07-20] MEDS: AMLODIPINE 10 MG TABLET PO (08:13)
[2022-07-20] MEDS: FUROSEMIDE 40 MG TABLET 20 MG PO (08:14)
[2022-07-20] MEDS: FLUOXETINE HCL 20 MG CAPSULE PO (08:14)
[2022-07-20] MEDS: PRESERVISION AREDS 1 EACH PO ×2 (08:15→16:04)
[2022-07-20] MEDS: lisinopriL 40 MG TABLET PO (08:15)
[2022-07-20] MEDS: METOPROLOL TARTRATE 50 MG TABLET PO ×2 (08:15→16:04)
[2022-07-20] MEDS: POTASSIUM CHLORIDE 20 MEQ TAB.ER.PRT 40 MEQ PO ×2 (08:16→16:04)
[2022-07-20] MEDS: ROSUVASTATIN CALCIUM 20 MG TABLET PO (08:16)
[2022-07-20] MEDS: TRAMADOL HCL 50 MG TABLET PO ×2 (08:20→19:39)
[2022-07-20] MEDS: INSULIN GLARGINE,HUM.REC.ANLOG 100 UNIT/ML INSULN.PEN 22 UNIT SUBCUT (08:28)
[2022-07-20] MEDS: BUSPIRONE 10 MG TABLET PO (10:00)
[2022-07-20 15:00] VITALS: TEMP 37; O2SAT 95
[2022-07-20] MEDS: BUSPIRONE 10 MG TABLET 5 MG PO (19:39)
[2022-07-20 23:00] VITALS: TEMP 36.7; O2SAT 95
[2022-07-21] MEDS: lisinopriL 40 MG TABLET PO (07:39)
[2022-07-21] MEDS: AMLODIPINE 10 MG TABLET PO (07:39)
[2022-07-21] MEDS: FLUOXETINE HCL 40 MG CAPSULE PO (07:39)
[2022-07-21] MEDS: FLUOXETINE HCL 20 MG CAPSULE PO (07:39)
[2022-07-21] MEDS: FUROSEMIDE 40 MG TABLET 20 MG PO (07:39)
[2022-07-21] MEDS: ASPIRIN EC 325 MG TABLET PO (07:39)
[2022-07-21] MEDS: PRESERVISION AREDS 1 EACH PO ×2 (07:40→15:04)
[2022-07-21] MEDS: METOPROLOL TARTRATE 50 MG TABLET PO ×2 (07:40→15:04)
[2022-07-21] MEDS: TRAMADOL HCL 50 MG TABLET PO ×2 (07:41→20:01)
[2022-07-21] MEDS: POTASSIUM CHLORIDE 20 MEQ TAB.ER.PRT 40 MEQ PO ×2 (07:41→15:04)
[2022-07-21] MEDS: ROSUVASTATIN CALCIUM 20 MG TABLET PO (07:41)
[2022-07-21] MEDS: BUSPIRONE 10 MG TABLET PO (08:25)
[2022-07-21] MEDS: INSULIN GLARGINE,HUM.REC.ANLOG 100 UNIT/ML INSULN.PEN 22 UNIT SUBCUT (08:25)
--- NOTE | 2022-07-21 10:20 | PC.NURSE ---
Catheter: Catheter was changed this shift using 20F 10cc balloon with good yellow urine return, no issues noted.
[2022-07-21 10:22] VITALS: TEMP 36.3; O2SAT 94
[2022-07-21 15:00] VITALS: TEMP 36.6; O2SAT 96
[2022-07-21] MEDS: BUSPIRONE 10 MG TABLET 5 MG PO (20:01)
[2022-07-21 23:00] VITALS: TEMP 36.8; O2SAT 93
[2022-07-22] MEDS: AMLODIPINE 10 MG TABLET PO (07:49)
[2022-07-22] MEDS: ASPIRIN EC 325 MG TABLET PO (07:49)
[2022-07-22] MEDS: METOPROLOL TARTRATE 50 MG TABLET PO ×2 (07:50→15:14)
[2022-07-22] MEDS: FLUOXETINE HCL 40 MG CAPSULE PO (07:50)
[2022-07-22] MEDS: lisinopriL 40 MG TABLET PO (07:50)
[2022-07-22] MEDS: FUROSEMIDE 40 MG TABLET 20 MG PO (07:50)
[2022-07-22] MEDS: FLUOXETINE HCL 20 MG CAPSULE PO (07:50)
[2022-07-22] MEDS: PRESERVISION AREDS 1 EACH PO ×2 (07:51→15:14)
[2022-07-22] MEDS: POTASSIUM CHLORIDE 20 MEQ TAB.ER.PRT 40 MEQ PO ×2 (07:51→15:14)
[2022-07-22] MEDS: ROSUVASTATIN CALCIUM 20 MG TABLET PO (07:51)
[2022-07-22] MEDS: TRAMADOL HCL 50 MG TABLET PO ×2 (07:51→20:28)
[2022-07-22] MEDS: INSULIN GLARGINE,HUM.REC.ANLOG 100 UNIT/ML INSULN.PEN 22 UNIT SUBCUT (08:42)
[2022-07-22] MEDS: BUSPIRONE 10 MG TABLET PO (08:42)
[2022-07-22 10:52] VITALS: TEMP 36.8; O2SAT 98
[2022-07-22 15:00] VITALS: TEMP 36.2; O2SAT 96
[2022-07-22] MEDS: BUSPIRONE 10 MG TABLET 5 MG PO (20:28)
[2022-07-22 23:00] VITALS: TEMP 36.6; O2SAT 96
[2022-07-23] MEDS: AMLODIPINE 10 MG TABLET PO (07:45)
[2022-07-23] MEDS: FLUOXETINE HCL 40 MG CAPSULE PO (07:45)
[2022-07-23] MEDS: lisinopriL 40 MG TABLET PO (07:45)
[2022-07-23] MEDS: ASPIRIN EC 325 MG TABLET PO (07:45)
[2022-07-23] MEDS: FLUOXETINE HCL 20 MG CAPSULE PO (07:45)
[2022-07-23] MEDS: FUROSEMIDE 40 MG TABLET 20 MG PO (07:45)
[2022-07-23] MEDS: METOPROLOL TARTRATE 50 MG TABLET PO ×2 (07:46→15:18)
[2022-07-23] MEDS: PRESERVISION AREDS 1 EACH PO ×2 (07:46→15:18)
[2022-07-23] MEDS: POTASSIUM CHLORIDE 20 MEQ TAB.ER.PRT 40 MEQ PO ×2 (07:47→15:18)
[2022-07-23] MEDS: TRAMADOL HCL 50 MG TABLET PO ×2 (07:47→20:04)
[2022-07-23] MEDS: ROSUVASTATIN CALCIUM 20 MG TABLET PO (07:47)
[2022-07-23] MEDS: BUSPIRONE 10 MG TABLET PO (08:31)
[2022-07-23] MEDS: INSULIN GLARGINE,HUM.REC.ANLOG 100 UNIT/ML INSULN.PEN 22 UNIT SUBCUT (08:31)
[2022-07-23 10:03] VITALS: TEMP 36.8; O2SAT 94
[2022-07-23 15:00] VITALS: TEMP 36.4; O2SAT 96
[2022-07-23] MEDS: BUSPIRONE 10 MG TABLET 5 MG PO (20:04)
[2022-07-23 23:00] VITALS: TEMP 36.5; O2SAT 97
[2022-07-24] MEDS: ASPIRIN EC 325 MG TABLET PO (07:57)
[2022-07-24] MEDS: INSULIN GLARGINE,HUM.REC.ANLOG 100 UNIT/ML INSULN.PEN 22 UNIT SUBCUT (07:57)
[2022-07-24] MEDS: AMLODIPINE 10 MG TABLET PO (07:57)
[2022-07-24] MEDS: FUROSEMIDE 40 MG TABLET 20 MG PO (07:58)
[2022-07-24] MEDS: METOPROLOL TARTRATE 50 MG TABLET PO ×2 (07:58→15:21)
[2022-07-24] MEDS: lisinopriL 40 MG TABLET PO (07:58)
[2022-07-24] MEDS: FLUOXETINE HCL 20 MG CAPSULE PO (07:58)
[2022-07-24] MEDS: FLUOXETINE HCL 40 MG CAPSULE PO (07:58)
[2022-07-24] MEDS: ROSUVASTATIN CALCIUM 20 MG TABLET PO (07:59)
[2022-07-24] MEDS: TRAMADOL HCL 50 MG TABLET PO ×2 (07:59→20:35)
[2022-07-24] MEDS: POTASSIUM CHLORIDE 20 MEQ TAB.ER.PRT 40 MEQ PO ×2 (07:59→15:21)
[2022-07-24] MEDS: PRESERVISION AREDS 1 EACH PO ×2 (07:59→15:21)
[2022-07-24] MEDS: BUSPIRONE 10 MG TABLET PO (09:00)
--- NOTE | 2022-07-24 11:59 | PC.SPIRITC ---
I provided visit for ongoing support and connection.
[2022-07-24 13:51] VITALS: TEMP 36.4; O2SAT 96
[2022-07-24 14:51] LABS: SARS PCR* Negative SARS-CoV-2 (Negative)
[2022-07-24] MEDS: BUSPIRONE 10 MG TABLET 5 MG PO (20:35)
[2022-07-24 21:09] VITALS: TEMP 36.6; O2SAT 97
[2022-07-24 23:00] VITALS: TEMP 36.4; O2SAT 96
[2022-07-25] MEDS: FLUOXETINE HCL 40 MG CAPSULE PO (08:03)
[2022-07-25] MEDS: AMLODIPINE 10 MG TABLET PO (08:03)
[2022-07-25] MEDS: ASPIRIN EC 325 MG TABLET PO (08:03)
[2022-07-25] MEDS: INSULIN GLARGINE,HUM.REC.ANLOG 100 UNIT/ML INSULN.PEN 22 UNIT SUBCUT (08:03)
[2022-07-25] MEDS: PRESERVISION AREDS 1 EACH PO ×2 (08:04→16:17)
[2022-07-25] MEDS: ROSUVASTATIN CALCIUM 20 MG TABLET PO (08:04)
[2022-07-25] MEDS: BUSPIRONE 10 MG TABLET PO (08:04)
[2022-07-25] MEDS: METOPROLOL TARTRATE 50 MG TABLET PO ×2 (08:04→16:17)
[2022-07-25] MEDS: FUROSEMIDE 40 MG TABLET 20 MG PO (08:04)
[2022-07-25] MEDS: FLUOXETINE HCL 20 MG CAPSULE PO (08:04)
[2022-07-25] MEDS: TRAMADOL HCL 50 MG TABLET PO ×2 (08:04→19:55)
[2022-07-25] MEDS: lisinopriL 40 MG TABLET PO (08:04)
[2022-07-25] MEDS: POTASSIUM CHLORIDE 20 MEQ TAB.ER.PRT 40 MEQ PO ×2 (08:04→16:17)
[2022-07-25 12:13] VITALS: TEMP 36.3; O2SAT 96
[2022-07-25 15:00] VITALS: BP 151/81; PULSE 63; PULSE 74; RESP 18; TEMP 36.8; O2SAT 96; O2SAT 97
[2022-07-25] MEDS: BUSPIRONE 10 MG TABLET 5 MG PO (19:55)
[2022-07-25 23:00] VITALS: TEMP 36.7; O2SAT 94
[2022-07-26] MEDS: AMLODIPINE 10 MG TABLET PO (07:46)
[2022-07-26] MEDS: FUROSEMIDE 40 MG TABLET 20 MG PO (07:47)
[2022-07-26] MEDS: FLUOXETINE HCL 40 MG CAPSULE PO (07:47)
[2022-07-26] MEDS: ASPIRIN EC 325 MG TABLET PO (07:47)
[2022-07-26] MEDS: TRAMADOL HCL 50 MG TABLET PO ×2 (07:47→20:16)
[2022-07-26] MEDS: METOPROLOL TARTRATE 50 MG TABLET PO ×2 (07:47→16:14)
[2022-07-26] MEDS: POTASSIUM CHLORIDE 20 MEQ TAB.ER.PRT 40 MEQ PO ×2 (07:47→16:14)
[2022-07-26] MEDS: PRESERVISION AREDS 1 EACH PO ×2 (07:47→16:14)
[2022-07-26] MEDS: INSULIN GLARGINE,HUM.REC.ANLOG 100 UNIT/ML INSULN.PEN 22 UNIT SUBCUT (07:47)
[2022-07-26] MEDS: FLUOXETINE HCL 20 MG CAPSULE PO (07:47)
[2022-07-26] MEDS: lisinopriL 40 MG TABLET PO (07:47)
[2022-07-26] MEDS: ROSUVASTATIN CALCIUM 20 MG TABLET PO (07:47)
[2022-07-26] MEDS: BUSPIRONE 10 MG TABLET PO (08:33)
[2022-07-26 08:48] VITALS: TEMP 36.4; O2SAT 96
--- NOTE | 2022-07-26 09:56 | PC.SPIRITC ---
I provided visit for connection and support.
[2022-07-26 14:36] VITALS: BMI 31.1
[2022-07-26 15:00] VITALS: TEMP 36.6; O2SAT 97
[2022-07-26] MEDS: BUSPIRONE 10 MG TABLET 5 MG PO (20:16)
[2022-07-26 23:00] VITALS: TEMP 36.7; O2SAT 95
--- NOTE | 2022-07-27 02:31 | PC.NURSE ---
WEEKLY CHARTING - WEEK 4: Vital signs reviewed. Temporary and comprehensive care plan reviewed - no change. No documented behaviors in the last month. Currently receives fluoxetine 60mg daily and buspirone 10mg Q AM & 5mg a HS with no noted adverse effects. Buspirone dose changed in last month. Is able to communicate needs verbally. Hears adequately. Visual deficit r/t macular degeneration. All medications administered by licensed nursing staff. No change in health condition.
[2022-07-27] MEDS: FLUOXETINE HCL 40 MG CAPSULE PO (07:43)
[2022-07-27] MEDS: AMLODIPINE 10 MG TABLET PO (07:43)
[2022-07-27] MEDS: ASPIRIN EC 325 MG TABLET PO (07:43)
[2022-07-27] MEDS: FLUOXETINE HCL 20 MG CAPSULE PO (07:43)
[2022-07-27] MEDS: METOPROLOL TARTRATE 50 MG TABLET PO (07:44)
[2022-07-27] MEDS: FUROSEMIDE 40 MG TABLET 20 MG PO (07:44)
[2022-07-27] MEDS: PRESERVISION AREDS 1 EACH PO ×2 (07:44→15:12)
[2022-07-27] MEDS: lisinopriL 40 MG TABLET PO (07:44)
[2022-07-27] MEDS: POTASSIUM CHLORIDE 20 MEQ TAB.ER.PRT 40 MEQ PO ×2 (07:45→15:12)
[2022-07-27] MEDS: ROSUVASTATIN CALCIUM 20 MG TABLET PO (07:46)
[2022-07-27] MEDS: TRAMADOL HCL 50 MG TABLET PO ×2 (07:46→20:29)
[2022-07-27] MEDS: INSULIN GLARGINE,HUM.REC.ANLOG 100 UNIT/ML INSULN.PEN 22 UNIT SUBCUT (08:44)
[2022-07-27] MEDS: BUSPIRONE 10 MG TABLET PO (08:44)
[2022-07-27 10:47] VITALS: TEMP 36.6; O2SAT 99
--- NOTE | 2022-07-27 10:59 | PC.NURSE ---
Addendum entered by Marry Santizo RN 07/27/22 11:25: Continues on Prozac 60mg daily, Buspar 10mg QAM with no adverse effects noted. Original Note: Week #4: Comprehensive care plan reviewed, no changes made. Nothing added to temporary care plan. No changes in communication, hearing, vision, or orientation. Resident does communicate needs and use the call light. Hearing no issues. Wears glasses to correct visual impairment. Chronic health condition stable. Has cognitive impairment. Nurse administer all medication. Elevated BP's addressed and reviewed by SET UP MECHANIC AUTOMATIC LINE. Metoprolol increased. Mood/Behavior: No issues the past month. 07/06/21 has a decrease in Buspar. No adverse effects, no change in mood. Continue to monitor for changes.
--- NOTE | 2022-07-27 11:17 | PC.NURSE ---
Order: Increase Metoprolol to 62.5mg BID by Artemio FLAHERTY.
[2022-07-27] MEDS: BUSPIRONE 10 MG TABLET 5 MG PO (20:29)
[2022-07-27] MEDS: METOPROLOL TARTRATE 50 MG TABLET 62.5 MG PO (20:29)
[2022-07-27 21:32] VITALS: TEMP 36.8; O2SAT 93
[2022-07-27 21:33] VITALS: BP 120/72
--- NOTE | 2022-07-27 21:44 | PC.NURSE ---
Skin: Resident has a raised red area on the right buttock. Sensi care BID intervention put in.
[2022-07-27 23:00] VITALS: TEMP 36.6; O2SAT 96
[2022-07-28 07:00] VITALS: TEMP 36.7; O2SAT 98
[2022-07-28] MEDS: ASPIRIN EC 325 MG TABLET PO (07:38)
[2022-07-28] MEDS: AMLODIPINE 10 MG TABLET PO (07:38)
[2022-07-28] MEDS: FLUOXETINE HCL 20 MG CAPSULE PO (07:39)
[2022-07-28] MEDS: FLUOXETINE HCL 40 MG CAPSULE PO (07:39)
[2022-07-28] MEDS: FUROSEMIDE 40 MG TABLET 20 MG PO (07:39)
[2022-07-28] MEDS: lisinopriL 40 MG TABLET PO (07:40)
[2022-07-28] MEDS: PRESERVISION AREDS 1 EACH PO ×2 (07:41→16:03)
[2022-07-28] MEDS: METOPROLOL TARTRATE 50 MG TABLET 62.5 MG PO (07:41)
[2022-07-28] MEDS: POTASSIUM CHLORIDE 20 MEQ TAB.ER.PRT 40 MEQ PO ×2 (07:42→16:03)
[2022-07-28] MEDS: ROSUVASTATIN CALCIUM 20 MG TABLET PO (07:42)
[2022-07-28] MEDS: TRAMADOL HCL 50 MG TABLET PO ×2 (07:45→20:22)
[2022-07-28] MEDS: INSULIN GLARGINE,HUM.REC.ANLOG 100 UNIT/ML INSULN.PEN 22 UNIT SUBCUT (08:13)
[2022-07-28] MEDS: BUSPIRONE 10 MG TABLET PO (08:58)
[2022-07-28 15:00] VITALS: TEMP 37.1; O2SAT 96
[2022-07-28 16:00] VITALS: BP 126/70
[2022-07-28] MEDS: BUSPIRONE 10 MG TABLET 5 MG PO (20:22)
--- NOTE | 2022-07-28 21:47 | PC.NURSE ---
Skin Concern: 2X2 open area on the right buttocks noted. Area cleansed with wound cleanser, patted dry, and 4X4 Mepilex applied, and off-load position performed. Will continue to monitor. Concern noted in the ELECTRODE TURNER AND FINISHER book.
[2022-07-28 23:00] VITALS: TEMP 36.8; O2SAT 96
[2022-07-29 07:00] VITALS: TEMP 37.2; O2SAT 94
[2022-07-29] MEDS: PRESERVISION AREDS 1 EACH PO ×2 (07:54→16:35)
[2022-07-29] MEDS: FLUOXETINE HCL 40 MG CAPSULE PO (07:54)
[2022-07-29] MEDS: FUROSEMIDE 40 MG TABLET 20 MG PO (07:54)
[2022-07-29] MEDS: AMLODIPINE 10 MG TABLET PO (07:54)
[2022-07-29] MEDS: FLUOXETINE HCL 20 MG CAPSULE PO (07:54)
[2022-07-29] MEDS: lisinopriL 40 MG TABLET PO (07:54)
[2022-07-29] MEDS: POTASSIUM CHLORIDE 20 MEQ TAB.ER.PRT 40 MEQ PO ×2 (07:54→16:40)
[2022-07-29] MEDS: ROSUVASTATIN CALCIUM 20 MG TABLET PO (07:54)
[2022-07-29] MEDS: ASPIRIN EC 325 MG TABLET PO (07:54)
[2022-07-29] MEDS: TRAMADOL HCL 50 MG TABLET PO ×2 (07:54→19:28)
[2022-07-29] MEDS: METOPROLOL TARTRATE 50 MG TABLET 62.5 MG PO ×2 (07:54→16:35)
[2022-07-29] MEDS: BUSPIRONE 10 MG TABLET PO (08:23)
[2022-07-29] MEDS: INSULIN GLARGINE,HUM.REC.ANLOG 100 UNIT/ML INSULN.PEN 22 UNIT SUBCUT (08:23)
[2022-07-29 15:00] VITALS: TEMP 37.2; O2SAT 94
[2022-07-29 16:00] VITALS: BP 122/77
[2022-07-29] MEDS: BUSPIRONE 10 MG TABLET 5 MG PO (19:28)
[2022-07-29 23:00] VITALS: TEMP 36.4; O2SAT 93
[2022-07-30 07:00] VITALS: TEMP 36.4; O2SAT 95
[2022-07-30] MEDS: AMLODIPINE 10 MG TABLET PO (08:17)
[2022-07-30] MEDS: FLUOXETINE HCL 40 MG CAPSULE PO (08:17)
[2022-07-30] MEDS: INSULIN GLARGINE,HUM.REC.ANLOG 100 UNIT/ML INSULN.PEN 22 UNIT SUBCUT (08:17)
[2022-07-30] MEDS: ASPIRIN EC 325 MG TABLET PO (08:17)
[2022-07-30] MEDS: FUROSEMIDE 40 MG TABLET 20 MG PO (08:18)
[2022-07-30] MEDS: METOPROLOL TARTRATE 50 MG TABLET 62.5 MG PO ×2 (08:18→16:40)
[2022-07-30] MEDS: PRESERVISION AREDS 1 EACH PO ×2 (08:18→16:40)
[2022-07-30] MEDS: FLUOXETINE HCL 20 MG CAPSULE PO (08:18)
[2022-07-30] MEDS: lisinopriL 40 MG TABLET PO (08:18)
[2022-07-30] MEDS: TRAMADOL HCL 50 MG TABLET PO ×2 (08:18→20:07)
[2022-07-30] MEDS: BUSPIRONE 10 MG TABLET PO (08:18)
[2022-07-30] MEDS: POTASSIUM CHLORIDE 20 MEQ TAB.ER.PRT 40 MEQ PO ×2 (08:18→16:40)
[2022-07-30] MEDS: ROSUVASTATIN CALCIUM 20 MG TABLET PO (08:18)
[2022-07-30 15:00] VITALS: TEMP 36.4; O2SAT 95
[2022-07-30 16:00] VITALS: BP 128/77
[2022-07-30] MEDS: BUSPIRONE 10 MG TABLET 5 MG PO (20:07)
[2022-07-30] MEDS: NYSTATIN POWDER 1 APPLIC TOPICAL (21:42)
--- NOTE | 2022-07-30 22:30 | PC.NURSE ---
Isolation/precaution: Resident has been placed on isolation due to 4 large watery stools. Will continue to monitor.
--- NOTE | 2022-07-30 22:41 | PC.NURSE ---
Skin Concern: Redness to both sides of the groin noted. Apply Nystatin powder as needed.
[2022-07-30 23:00] VITALS: TEMP 36.8; O2SAT 93
[2022-07-31] MEDS: NYSTATIN POWDER 1 APPLIC TOPICAL ×2 (07:20→21:03)
[2022-07-31] MEDS: AMLODIPINE 10 MG TABLET PO (07:49)
[2022-07-31] MEDS: ASPIRIN EC 325 MG TABLET PO (07:50)
[2022-07-31] MEDS: INSULIN GLARGINE,HUM.REC.ANLOG 100 UNIT/ML INSULN.PEN 22 UNIT SUBCUT (07:50)
[2022-07-31] MEDS: FLUOXETINE HCL 40 MG CAPSULE PO (07:50)
[2022-07-31] MEDS: FLUOXETINE HCL 20 MG CAPSULE PO (07:50)
[2022-07-31] MEDS: FUROSEMIDE 40 MG TABLET 20 MG PO (07:50)
[2022-07-31] MEDS: lisinopriL 40 MG TABLET PO (07:51)
[2022-07-31] MEDS: METOPROLOL TARTRATE 50 MG TABLET 62.5 MG PO ×2 (07:51→16:06)
[2022-07-31] MEDS: PRESERVISION AREDS 1 EACH PO ×2 (07:52→16:06)
[2022-07-31] MEDS: POTASSIUM CHLORIDE 20 MEQ TAB.ER.PRT 40 MEQ PO ×2 (07:52→16:06)
[2022-07-31] MEDS: ROSUVASTATIN CALCIUM 20 MG TABLET PO (07:53)
[2022-07-31] MEDS: TRAMADOL HCL 50 MG TABLET PO ×2 (07:53→20:13)
[2022-07-31] MEDS: BUSPIRONE 10 MG TABLET PO (08:35)
--- NOTE | 2022-07-31 10:30 | PC.NURSE ---
COVID OUTBREAK TESTING Resident provided verbal consent for outbreak COVID testing. Resident is currently asymptomatic.? Resident/family will be notified only if resident is positive.
[2022-07-31 12:02] LABS: SARS PCR* Negative SARS-CoV-2 (Negative)
[2022-07-31 13:17] VITALS: TEMP 36.3; O2SAT 96
--- NOTE | 2022-07-31 13:19 | PC.NURSE ---
Loose stool/BEAM BUILDER updated: ARCADIO Ulloa BEAM BUILDER: Collect stool sample to rule out Norovirus. Resident put on isolation precautions at this time per Infectious Disease Nurse.
[2022-07-31] MEDS: BUSPIRONE 10 MG TABLET 5 MG PO (20:12)
[2022-07-31 21:30] VITALS: TEMP 36.3; O2SAT 92
[2022-07-31 23:00] VITALS: TEMP 36.7; O2SAT 96
[2022-08-01] MEDS: FLUOXETINE HCL 40 MG CAPSULE PO (07:37)
[2022-08-01] MEDS: INSULIN GLARGINE,HUM.REC.ANLOG 100 UNIT/ML INSULN.PEN 22 UNIT SUBCUT (07:37)
[2022-08-01] MEDS: AMLODIPINE 10 MG TABLET PO (07:37)
[2022-08-01] MEDS: ASPIRIN EC 325 MG TABLET PO (07:37)
[2022-08-01] MEDS: FUROSEMIDE 40 MG TABLET 20 MG PO (07:38)
[2022-08-01] MEDS: FLUOXETINE HCL 20 MG CAPSULE PO (07:38)
[2022-08-01] MEDS: TRAMADOL HCL 50 MG TABLET PO ×2 (07:38→19:58)
[2022-08-01] MEDS: ROSUVASTATIN CALCIUM 20 MG TABLET PO (07:38)
[2022-08-01] MEDS: POTASSIUM CHLORIDE 20 MEQ TAB.ER.PRT 40 MEQ PO ×2 (07:38→15:23)
[2022-08-01] MEDS: METOPROLOL TARTRATE 50 MG TABLET 62.5 MG PO ×2 (07:38→15:23)
[2022-08-01] MEDS: lisinopriL 40 MG TABLET PO (07:38)
[2022-08-01] MEDS: PRESERVISION AREDS 1 EACH PO ×2 (07:38→15:23)
[2022-08-01] MEDS: BUSPIRONE 10 MG TABLET PO (08:05)
[2022-08-01 10:38] VITALS: TEMP 36.4; O2SAT 95
--- NOTE | 2022-08-01 12:12 | PC.NURSE ---
Skin treatment : Seen by N/P Artemio, ordered new skin treatment as follows:- Right buttock treatment. Cleanse open area with wound cleanser, apply Mepilex. Change daily or PRN soiled. Shearing area to butt crack treatment. Cleanse area (lightly), apply house stock zinc cream BID, be careful to wipe area lightly to prevent worsening shearing
--- NOTE | 2022-08-01 13:56 | PC.NURSE ---
CARE CONFERENCE: meeting held with care team members from nursing, dietary, activities and social group worker. Wt stable. Resident has lost weight since having bouts of diarrhea. Continues to eat snacks between meals. Spike Machine Feeder not concerned with weight at this time. Nursing reviewed that resident continues to need 1 ANISH extensive assistance with dressing, grooming, mobility and bathing.? Prolonged chronic weakness. Propelled by staff in wheelchair. Nursing spoke about areas on buttocks that were reviewed by CONTRACT CONSULTANT today and treatment set up. Resident has been coming out to the dining room for meals and activities more frequently in the past three months. Resident able to feed self after setup. POLST reviewed. Is DNR/DNI. Uses no restraints.?Is not able to self admin own medications due to dementia. Mood is stable. Resident would like to talk with talk therapist. SS setting up appointments. Resident has been on and off isolation precautions d/t loose stools and labs to be drawn when able to rule out norovirus/C-Diff. Vulnerability- is at risk for being harmed. Resident pleased with care at this time. There are no discharge plans, termite treater helper care.?
[2022-08-01 15:00] VITALS: BP 127/78; PULSE 74; PULSE 80; RESP 18; TEMP 36.3; TEMP 36.6; O2SAT 97
--- NOTE | 2022-08-01 15:08 | PC.SOCIAL ---
Resident's care conference was held today. Resident has been not feeling well lately physically and requested to start seeing the mental health therapist again. Due to resident being on isolation, Kiesha with [facility] will see resident on Sunday.
[2022-08-01 16:00] VITALS: BMI 31.1
[2022-08-01] MEDS: BUSPIRONE 10 MG TABLET 5 MG PO (19:58)
[2022-08-01 23:00] VITALS: TEMP 36.3; O2SAT 94
[2022-08-02] MEDS: POTASSIUM CHLORIDE 20 MEQ TAB.ER.PRT 40 MEQ PO ×2 (07:56→15:33)
[2022-08-02] MEDS: INSULIN GLARGINE,HUM.REC.ANLOG 100 UNIT/ML INSULN.PEN 22 UNIT SUBCUT (07:56)
[2022-08-02] MEDS: METOPROLOL TARTRATE 50 MG TABLET 62.5 MG PO ×2 (07:56→15:32)
[2022-08-02] MEDS: FLUOXETINE HCL 40 MG CAPSULE PO (07:56)
[2022-08-02] MEDS: ASPIRIN EC 325 MG TABLET PO (07:56)
[2022-08-02] MEDS: PRESERVISION AREDS 1 EACH PO ×2 (07:56→15:33)
[2022-08-02] MEDS: lisinopriL 40 MG TABLET PO (07:56)
[2022-08-02] MEDS: FUROSEMIDE 40 MG TABLET 20 MG PO (07:56)
[2022-08-02] MEDS: FLUOXETINE HCL 20 MG CAPSULE PO (07:56)
[2022-08-02] MEDS: AMLODIPINE 10 MG TABLET PO (07:56)
[2022-08-02] MEDS: ROSUVASTATIN CALCIUM 20 MG TABLET PO (07:57)
[2022-08-02] MEDS: TRAMADOL HCL 50 MG TABLET PO ×2 (07:57→20:16)
[2022-08-02] MEDS: BUSPIRONE 10 MG TABLET PO (08:02)
[2022-08-02 10:58] VITALS: TEMP 36.4; O2SAT 96
[2022-08-02 15:00] VITALS: TEMP 36.2; O2SAT 96
[2022-08-02] MEDS: BUSPIRONE 10 MG TABLET 5 MG PO (20:16)
[2022-08-02 23:00] VITALS: TEMP 36.4; O2SAT 95
--- NOTE | 2022-08-03 05:24 | PC.NURSE ---
Isolation: Has been greater that 72 hours without any GI symptoms. Removed from isolation per protocol.
[2022-08-03] MEDS: INSULIN GLARGINE,HUM.REC.ANLOG 100 UNIT/ML INSULN.PEN 22 UNIT SUBCUT (07:33)
[2022-08-03] MEDS: ASPIRIN EC 325 MG TABLET PO (07:33)
[2022-08-03] MEDS: AMLODIPINE 10 MG TABLET PO (07:33)
[2022-08-03] MEDS: FLUOXETINE HCL 40 MG CAPSULE PO (07:34)
[2022-08-03] MEDS: lisinopriL 40 MG TABLET PO (07:34)
[2022-08-03] MEDS: FUROSEMIDE 40 MG TABLET 20 MG PO (07:34)
[2022-08-03] MEDS: METOPROLOL TARTRATE 50 MG TABLET 62.5 MG PO ×2 (07:34→15:21)
[2022-08-03] MEDS: FLUOXETINE HCL 20 MG CAPSULE PO (07:34)
[2022-08-03] MEDS: POTASSIUM CHLORIDE 20 MEQ TAB.ER.PRT 40 MEQ PO ×2 (07:35→15:21)
[2022-08-03] MEDS: PRESERVISION AREDS 1 EACH PO ×2 (07:35→15:21)
[2022-08-03] MEDS: ROSUVASTATIN CALCIUM 20 MG TABLET PO (07:35)
[2022-08-03] MEDS: TRAMADOL HCL 50 MG TABLET PO ×2 (07:35→20:03)
[2022-08-03] MEDS: BUSPIRONE 10 MG TABLET PO (08:43)
[2022-08-03 10:14] VITALS: TEMP 36.4; O2SAT 98
[2022-08-03 15:00] VITALS: TEMP 36.7; O2SAT 98
[2022-08-03] MEDS: BUSPIRONE 10 MG TABLET 5 MG PO (20:03)
[2022-08-03 23:00] VITALS: TEMP 36.7; O2SAT 97
[2022-08-04] MEDS: AMLODIPINE 10 MG TABLET PO (07:51)
[2022-08-04] MEDS: ASPIRIN EC 325 MG TABLET PO (07:52)
[2022-08-04] MEDS: INSULIN GLARGINE,HUM.REC.ANLOG 100 UNIT/ML INSULN.PEN 22 UNIT SUBCUT (07:52)
[2022-08-04] MEDS: FLUOXETINE HCL 20 MG CAPSULE PO (07:52)
[2022-08-04] MEDS: FLUOXETINE HCL 40 MG CAPSULE PO (07:52)
[2022-08-04] MEDS: FUROSEMIDE 40 MG TABLET 20 MG PO (07:53)
[2022-08-04] MEDS: lisinopriL 40 MG TABLET PO (07:53)
[2022-08-04] MEDS: METOPROLOL TARTRATE 50 MG TABLET 62.5 MG PO ×2 (07:54→16:11)
[2022-08-04] MEDS: PRESERVISION AREDS 1 EACH PO ×2 (07:54→16:11)
[2022-08-04] MEDS: POTASSIUM CHLORIDE 20 MEQ TAB.ER.PRT 40 MEQ PO ×2 (07:55→16:12)
[2022-08-04] MEDS: TRAMADOL HCL 50 MG TABLET PO ×2 (07:55→19:41)
[2022-08-04] MEDS: ROSUVASTATIN CALCIUM 20 MG TABLET PO (07:55)
[2022-08-04] MEDS: BUSPIRONE 10 MG TABLET PO (08:32)
[2022-08-04 10:52] VITALS: TEMP 36; O2SAT 96
[2022-08-04 15:00] VITALS: TEMP 36.5; O2SAT 96
[2022-08-04] MEDS: BUSPIRONE 10 MG TABLET 5 MG PO (19:41)
[2022-08-04 23:00] VITALS: TEMP 36.7; O2SAT 95
--- NOTE | 2022-08-05 03:11 | PC.NURSE ---
Health Status : Resident has been resting soundly between cares. No s/sx of pain or discomfort noted or reported. Incontinent of urine x1 this shift so far. Turning and repositioning done every 2 hours and as needed. Daughter present at bedside till 0. She requested to give family a call with any changes to her mom, she will be back in the morning.
[2022-08-05] MEDS: AMLODIPINE 10 MG TABLET PO (07:40)
[2022-08-05] MEDS: ASPIRIN EC 325 MG TABLET PO (07:40)
[2022-08-05] MEDS: METOPROLOL TARTRATE 50 MG TABLET 62.5 MG PO ×2 (07:41→15:34)
[2022-08-05] MEDS: FLUOXETINE HCL 40 MG CAPSULE PO (07:41)
[2022-08-05] MEDS: FLUOXETINE HCL 20 MG CAPSULE PO (07:41)
[2022-08-05] MEDS: lisinopriL 40 MG TABLET PO (07:41)
[2022-08-05] MEDS: FUROSEMIDE 40 MG TABLET 20 MG PO (07:41)
[2022-08-05] MEDS: POTASSIUM CHLORIDE 20 MEQ TAB.ER.PRT 40 MEQ PO ×2 (07:42→15:35)
[2022-08-05] MEDS: PRESERVISION AREDS 1 EACH PO ×2 (07:42→15:34)
[2022-08-05] MEDS: TRAMADOL HCL 50 MG TABLET PO ×2 (07:43→19:59)
[2022-08-05] MEDS: ROSUVASTATIN CALCIUM 20 MG TABLET PO (07:43)
[2022-08-05] MEDS: INSULIN GLARGINE,HUM.REC.ANLOG 100 UNIT/ML INSULN.PEN 22 UNIT SUBCUT (07:50)
[2022-08-05] MEDS: BUSPIRONE 10 MG TABLET PO (08:16)
[2022-08-05 13:18] VITALS: TEMP 36.8; O2SAT 96
[2022-08-05 15:00] VITALS: TEMP 36.1; O2SAT 96
[2022-08-05] MEDS: BUSPIRONE 10 MG TABLET 5 MG PO (19:59)
[2022-08-05 23:00] VITALS: TEMP 36.7; O2SAT 95
[2022-08-06] MEDS: ASPIRIN EC 325 MG TABLET PO (07:54)
[2022-08-06] MEDS: FLUOXETINE HCL 20 MG CAPSULE PO (07:54)
[2022-08-06] MEDS: FUROSEMIDE 40 MG TABLET 20 MG PO (07:54)
[2022-08-06] MEDS: FLUOXETINE HCL 40 MG CAPSULE PO (07:54)
[2022-08-06] MEDS: AMLODIPINE 10 MG TABLET PO (07:54)
[2022-08-06] MEDS: METOPROLOL TARTRATE 50 MG TABLET 62.5 MG PO ×2 (07:55→15:21)
[2022-08-06] MEDS: PRESERVISION AREDS 1 EACH PO ×2 (07:55→15:21)
[2022-08-06] MEDS: lisinopriL 40 MG TABLET PO (07:55)
[2022-08-06] MEDS: POTASSIUM CHLORIDE 20 MEQ TAB.ER.PRT 40 MEQ PO ×2 (07:57→15:21)
[2022-08-06] MEDS: TRAMADOL HCL 50 MG TABLET PO ×2 (07:57→19:56)
[2022-08-06] MEDS: ROSUVASTATIN CALCIUM 20 MG TABLET PO (07:57)
[2022-08-06] MEDS: BUSPIRONE 10 MG TABLET PO (08:09)
[2022-08-06] MEDS: INSULIN GLARGINE,HUM.REC.ANLOG 100 UNIT/ML INSULN.PEN 22 UNIT SUBCUT (08:09)
[2022-08-06 15:00] VITALS: TEMP 36.1; O2SAT 96
[2022-08-06] MEDS: BUSPIRONE 10 MG TABLET 5 MG PO (19:56)
[2022-08-06 23:00] VITALS: TEMP 36.3; O2SAT 95
[2022-08-07] MEDS: INSULIN GLARGINE,HUM.REC.ANLOG 100 UNIT/ML INSULN.PEN 22 UNIT SUBCUT (08:00)
[2022-08-07] MEDS: AMLODIPINE 10 MG TABLET PO (08:00)
[2022-08-07] MEDS: ASPIRIN EC 325 MG TABLET PO (08:00)
[2022-08-07] MEDS: FLUOXETINE HCL 40 MG CAPSULE PO (08:01)
[2022-08-07] MEDS: FUROSEMIDE 40 MG TABLET 20 MG PO (08:01)
[2022-08-07] MEDS: lisinopriL 40 MG TABLET PO (08:01)
[2022-08-07] MEDS: METOPROLOL TARTRATE 50 MG TABLET 62.5 MG PO ×2 (08:01→15:32)
[2022-08-07] MEDS: FLUOXETINE HCL 20 MG CAPSULE PO (08:01)
[2022-08-07] MEDS: PRESERVISION AREDS 1 EACH PO ×2 (08:02→15:32)
[2022-08-07] MEDS: POTASSIUM CHLORIDE 20 MEQ TAB.ER.PRT 40 MEQ PO ×2 (08:02→15:32)
[2022-08-07] MEDS: ROSUVASTATIN CALCIUM 20 MG TABLET PO (08:03)
[2022-08-07] MEDS: TRAMADOL HCL 50 MG TABLET PO ×2 (08:03→20:49)
[2022-08-07] MEDS: BUSPIRONE 10 MG TABLET PO (08:25)
--- NOTE | 2022-08-07 09:49 | PC.NURSE ---
COVID OUTBREAK TESTING Residents family gave verbal consent for outbreak COVID testing. Resident is currently asymptomatic.? Resident/family will be notified only if resident is positive.
[2022-08-07 09:53] VITALS: TEMP 36.7; O2SAT 95
[2022-08-07 11:24] LABS: SARS PCR* Negative SARS-CoV-2 (Negative)
[2022-08-07] MEDS: BUSPIRONE 10 MG TABLET 5 MG PO (20:49)
[2022-08-07 21:10] VITALS: TEMP 36.1; O2SAT 95
--- NOTE | 2022-08-07 21:34 | PC.NURSE ---
Skin: Resident has a scab on the left inner forearm measuring [id number]. Injury is of unknown origin.
[2022-08-08 02:09] VITALS: TEMP 36.8; O2SAT 98
[2022-08-08] MEDS: AMLODIPINE 10 MG TABLET PO (08:17)
[2022-08-08] MEDS: ASPIRIN EC 325 MG TABLET PO (08:17)
[2022-08-08] MEDS: FUROSEMIDE 40 MG TABLET 20 MG PO (08:17)
[2022-08-08] MEDS: INSULIN GLARGINE,HUM.REC.ANLOG 100 UNIT/ML INSULN.PEN 22 UNIT SUBCUT (08:17)
[2022-08-08] MEDS: FLUOXETINE HCL 40 MG CAPSULE PO (08:17)
[2022-08-08] MEDS: lisinopriL 40 MG TABLET PO (08:17)
[2022-08-08] MEDS: METOPROLOL TARTRATE 50 MG TABLET 62.5 MG PO ×2 (08:17→16:03)
[2022-08-08] MEDS: FLUOXETINE HCL 20 MG CAPSULE PO (08:17)
[2022-08-08] MEDS: BUSPIRONE 10 MG TABLET PO (08:18)
[2022-08-08] MEDS: POTASSIUM CHLORIDE 20 MEQ TAB.ER.PRT 40 MEQ PO ×2 (08:18→16:03)
[2022-08-08] MEDS: PRESERVISION AREDS 1 EACH PO ×2 (08:18→16:03)
[2022-08-08] MEDS: TRAMADOL HCL 50 MG TABLET PO ×2 (08:18→19:30)
[2022-08-08] MEDS: ROSUVASTATIN CALCIUM 20 MG TABLET PO (08:18)
[2022-08-08 10:48] VITALS: TEMP 36.9; O2SAT 95
[2022-08-08 15:00] VITALS: BP 117/78; PULSE 68; PULSE 74; RESP 18; TEMP 37.1; O2SAT 95
[2022-08-08] MEDS: BUSPIRONE 10 MG TABLET 5 MG PO (19:29)
[2022-08-08 23:00] VITALS: TEMP 36.4; O2SAT 96
[2022-08-09] MEDS: INSULIN GLARGINE,HUM.REC.ANLOG 100 UNIT/ML INSULN.PEN 22 UNIT SUBCUT (07:25)
[2022-08-09] MEDS: FLUOXETINE HCL 40 MG CAPSULE PO (07:25)
[2022-08-09] MEDS: lisinopriL 40 MG TABLET PO (07:25)
[2022-08-09] MEDS: FLUOXETINE HCL 20 MG CAPSULE PO (07:25)
[2022-08-09] MEDS: AMLODIPINE 10 MG TABLET PO (07:25)
[2022-08-09] MEDS: ASPIRIN EC 325 MG TABLET PO (07:25)
[2022-08-09] MEDS: FUROSEMIDE 40 MG TABLET 20 MG PO (07:25)
[2022-08-09] MEDS: METOPROLOL TARTRATE 50 MG TABLET 62.5 MG PO ×2 (07:25→15:40)
[2022-08-09] MEDS: PRESERVISION AREDS 1 EACH PO ×2 (07:26→15:40)
[2022-08-09] MEDS: ROSUVASTATIN CALCIUM 20 MG TABLET PO (07:26)
[2022-08-09] MEDS: POTASSIUM CHLORIDE 20 MEQ TAB.ER.PRT 40 MEQ PO ×2 (07:26→15:40)
[2022-08-09] MEDS: TRAMADOL HCL 50 MG TABLET PO ×2 (07:26→19:21)
[2022-08-09] MEDS: BUSPIRONE 10 MG TABLET PO (08:14)
[2022-08-09 09:53] VITALS: TEMP 36.2; O2SAT 97
--- NOTE | 2022-08-09 10:06 | PC.NURSE ---
Resident has a dried scab on her left inner forearm. It appears to be similar to the growth by her eye. She stated they keeping bumping it but did not know what it was bumped on. Will monitor.
--- NOTE | 2022-08-09 10:42 | PC.NURSE ---
Resident's daughter here and I shared her scab on her arm. Daughter said when she was here this weekend she picked a lesion off and it had three bumps under it. We agreed to do a Bacitracin bandaid daily.
[2022-08-09 15:00] VITALS: TEMP 36.6; O2SAT 96
[2022-08-09] MEDS: BUSPIRONE 10 MG TABLET 5 MG PO (19:21)
--- NOTE | 2022-08-09 22:45 | PC.NURSE ---
Status: Resident very tearful tonight, told staff that she received a phone call that her sister from [place] has . Artificial Limb Maker provided comfort.
[2022-08-09 23:00] VITALS: TEMP 36.6; O2SAT 96
--- NOTE | 2022-08-10 05:48 | PC.NURSE ---
WEEKLY CHARTING- Week #1 Pain & ADL's: Vital signs reviewed - no new concerns at this time. Comprehensive/Temporary care plan reviewed -no changes made at this time. Resident needs extensive one assist with dressing, grooming and bathing - but encouragement and cues needed in order to participate in those ADL tasks including performing oral cares and dressing her top half after set up assist. Resident is on regular diet as she receives large portions/request. Eats independently after meal tray set-up. No problems noted in chewing or swallowing. Pain: Pain regimen such as Lyrica 300mg BID, and Ultram 50mg BID manages resident's pain. Resident has the ability to verbalized pain.
[2022-08-10] MEDS: AMLODIPINE 10 MG TABLET PO (07:02)
[2022-08-10] MEDS: ASPIRIN EC 325 MG TABLET PO (07:02)
[2022-08-10] MEDS: FLUOXETINE HCL 40 MG CAPSULE PO (07:03)
[2022-08-10] MEDS: METOPROLOL TARTRATE 50 MG TABLET 62.5 MG PO ×2 (07:03→15:11)
[2022-08-10] MEDS: FLUOXETINE HCL 20 MG CAPSULE PO (07:03)
[2022-08-10] MEDS: lisinopriL 40 MG TABLET PO (07:03)
[2022-08-10] MEDS: FUROSEMIDE 40 MG TABLET 20 MG PO (07:03)
[2022-08-10] MEDS: TRAMADOL HCL 50 MG TABLET PO ×2 (07:04→19:40)
[2022-08-10] MEDS: ROSUVASTATIN CALCIUM 20 MG TABLET PO (07:04)
[2022-08-10] MEDS: POTASSIUM CHLORIDE 20 MEQ TAB.ER.PRT 40 MEQ PO ×2 (07:04→15:12)
[2022-08-10] MEDS: PRESERVISION AREDS 1 EACH PO ×2 (07:04→15:12)
[2022-08-10] MEDS: INSULIN GLARGINE,HUM.REC.ANLOG 100 UNIT/ML INSULN.PEN 22 UNIT SUBCUT (07:16)
[2022-08-10] MEDS: BUSPIRONE 10 MG TABLET PO (08:04)
--- NOTE | 2022-08-10 09:21 | PC.NURSE ---
Week #1: Pain and ADL`s Care plan problems 1-19 and temporary care plan reviewed. No changes made. Nothing added to temporary care plan. Resident has chronic pain which is effectively control with Lyrica 300mg BID, & Ultram 50mg TID. Resident is able to communicate her needs and no c/o pain during the past month. Resident needs extensive one assist with dressing, grooming and bathing. Encourage participation as she is able ,she is able to do simple task like brushing her teeth, eating and combing her hair. Staff complete as needed. Independent with feeding. Is on regular diet, large portions per her request. No problems noted in chewing or swallowing.
[2022-08-10 09:47] VITALS: TEMP 37.1; O2SAT 97
--- NOTE | 2022-08-10 11:02 | PC.NURSE ---
Recert Visit: Resident seen by Artemio FLAHERTY. Orders reviewed and renewed of 75days with changes. Order: FLORENCE, HgbA1C on 08/14/22.
[2022-08-10 15:00] VITALS: TEMP 36.6; O2SAT 96
[2022-08-10] MEDS: BUSPIRONE 10 MG TABLET 5 MG PO (19:40)
[2022-08-10 23:00] VITALS: TEMP 36.4; O2SAT 94
[2022-08-11] MEDS: AMLODIPINE 10 MG TABLET PO (07:29)
[2022-08-11] MEDS: ASPIRIN EC 325 MG TABLET PO (07:29)
[2022-08-11] MEDS: INSULIN GLARGINE,HUM.REC.ANLOG 100 UNIT/ML INSULN.PEN 22 UNIT SUBCUT (07:29)
[2022-08-11] MEDS: FLUOXETINE HCL 40 MG CAPSULE PO (07:30)
[2022-08-11] MEDS: PRESERVISION AREDS 1 EACH PO ×2 (07:30→16:04)
[2022-08-11] MEDS: lisinopriL 40 MG TABLET PO (07:30)
[2022-08-11] MEDS: TRAMADOL HCL 50 MG TABLET PO ×2 (07:30→19:50)
[2022-08-11] MEDS: ROSUVASTATIN CALCIUM 20 MG TABLET PO (07:30)
[2022-08-11] MEDS: METOPROLOL TARTRATE 50 MG TABLET 62.5 MG PO ×2 (07:30→16:03)
[2022-08-11] MEDS: FLUOXETINE HCL 20 MG CAPSULE PO (07:30)
[2022-08-11] MEDS: FUROSEMIDE 40 MG TABLET 20 MG PO (07:30)
[2022-08-11] MEDS: POTASSIUM CHLORIDE 20 MEQ TAB.ER.PRT 40 MEQ PO ×2 (07:30→16:04)
[2022-08-11] MEDS: BUSPIRONE 10 MG TABLET PO (08:06)
[2022-08-11 11:00] VITALS: TEMP 36.6; O2SAT 95
--- NOTE | 2022-08-11 13:33 | PC.NURSE ---
Resident had 2 episode of loose stool during this shift. Staff to monitor and if resident has 3 conservative days of loose stool, to put her on isolation. Message left for Lupe.
[2022-08-11 15:00] VITALS: TEMP 36.6; O2SAT 96
[2022-08-11] MEDS: BUSPIRONE 10 MG TABLET 5 MG PO (19:50)
[2022-08-11 23:00] VITALS: TEMP 36.7; O2SAT 96
[2022-08-12 07:00] VITALS: TEMP 36.7; O2SAT 95
[2022-08-12] MEDS: AMLODIPINE 10 MG TABLET PO (07:29)
[2022-08-12] MEDS: FLUOXETINE HCL 20 MG CAPSULE PO (07:29)
[2022-08-12] MEDS: FLUOXETINE HCL 40 MG CAPSULE PO (07:29)
[2022-08-12] MEDS: PRESERVISION AREDS 1 EACH PO ×2 (07:29→16:08)
[2022-08-12] MEDS: POTASSIUM CHLORIDE 20 MEQ TAB.ER.PRT 40 MEQ PO ×2 (07:29→16:09)
[2022-08-12] MEDS: lisinopriL 40 MG TABLET PO (07:29)
[2022-08-12] MEDS: METOPROLOL TARTRATE 50 MG TABLET 62.5 MG PO ×2 (07:29→16:08)
[2022-08-12] MEDS: FUROSEMIDE 40 MG TABLET 20 MG PO (07:29)
[2022-08-12] MEDS: ASPIRIN EC 325 MG TABLET PO (07:29)
[2022-08-12] MEDS: ROSUVASTATIN CALCIUM 20 MG TABLET PO (07:30)
[2022-08-12] MEDS: TRAMADOL HCL 50 MG TABLET PO ×2 (07:30→19:38)
[2022-08-12] MEDS: INSULIN GLARGINE,HUM.REC.ANLOG 100 UNIT/ML INSULN.PEN 22 UNIT SUBCUT (08:14)
[2022-08-12] MEDS: BUSPIRONE 10 MG TABLET PO (08:14)
[2022-08-12 15:00] VITALS: TEMP 36.7; O2SAT 95
[2022-08-12] MEDS: BUSPIRONE 10 MG TABLET 5 MG PO (19:38)
[2022-08-12 23:00] VITALS: TEMP 36.8; O2SAT 97
[2022-08-13 07:00] VITALS: TEMP 36.8; O2SAT 97
[2022-08-13] MEDS: TRAMADOL HCL 50 MG TABLET PO ×2 (08:16→19:10)
[2022-08-13] MEDS: lisinopriL 40 MG TABLET PO (08:20)
[2022-08-13] MEDS: FLUOXETINE HCL 20 MG CAPSULE PO (08:20)
[2022-08-13] MEDS: METOPROLOL TARTRATE 50 MG TABLET 62.5 MG PO ×2 (08:20→16:24)
[2022-08-13] MEDS: POTASSIUM CHLORIDE 20 MEQ TAB.ER.PRT 40 MEQ PO ×2 (08:20→16:24)
[2022-08-13] MEDS: ROSUVASTATIN CALCIUM 20 MG TABLET PO (08:20)
[2022-08-13] MEDS: FUROSEMIDE 40 MG TABLET 20 MG PO (08:20)
[2022-08-13] MEDS: BUSPIRONE 10 MG TABLET PO (08:20)
[2022-08-13] MEDS: PRESERVISION AREDS 1 EACH PO ×2 (08:20→16:24)
[2022-08-13] MEDS: FLUOXETINE HCL 40 MG CAPSULE PO (08:21)
[2022-08-13] MEDS: ASPIRIN EC 325 MG TABLET PO (08:21)
[2022-08-13] MEDS: AMLODIPINE 10 MG TABLET PO (08:21)
[2022-08-13] MEDS: INSULIN GLARGINE,HUM.REC.ANLOG 100 UNIT/ML INSULN.PEN 22 UNIT SUBCUT (08:33)
--- NOTE | 2022-08-13 13:24 | PC.NURSE ---
Eye Concerns: Resident C/O pain to R-eye. Eye assessed - it appears red/pink with discharge that is thick crusty mucus on the eyelids and eyelashes. Eye gently washed to remove dried crusty to prevent blurriness. Will continue to monitor. Concern noted in OIL FIELD EQUIPMENT MECHANIC SUPERVISOR book.
[2022-08-13 15:00] VITALS: TEMP 36.8; O2SAT 97
[2022-08-13] MEDS: BUSPIRONE 10 MG TABLET 5 MG PO (19:10)
--- NOTE | 2022-08-13 20:31 | PC.NURSE ---
New Order: Spoke to on-call provider, Dr. Carter, concerning suspected pink eye infection to the right eye. RBVO as follow: 1) Polytrim eye drops - instill 1 drop into right eye 4 X daily for 7 days, for pink eye disease. 2) Gently cleanse infected right eye with warm wash cloth 3 X daily till eye heals.
[2022-08-13 23:00] VITALS: TEMP 36.8; O2SAT 96
[2022-08-14 07:40] LABS: Chloride* 109 mmol/L (96-114); Sodium* 139 mmol/L (135-149)
[2022-08-14 07:41] LABS: Potassium* 3.6 mmol/L (3.6-5.1)
[2022-08-14 07:43] LABS: Carbon Dioxide* 25 mmol/L (20-32); Creatinine* 0.5 mg/dL (0.5-1.5); Est. Creatinine Clearance* 35.26; Estimated Glomerular Filt Rate 93 ml/min
[2022-08-14 07:44] LABS: Blood Urea Nitrogen* 13 mg/dL (7-30); Calcium* 8.7 mg/dL (8.4-10.6); Glucose* 141 mg/dL (60-115)
[2022-08-14] MEDS: ASPIRIN EC 325 MG TABLET PO (07:52)
[2022-08-14] MEDS: AMLODIPINE 10 MG TABLET PO (07:52)
[2022-08-14] MEDS: FLUOXETINE HCL 20 MG CAPSULE PO (07:53)
[2022-08-14] MEDS: METOPROLOL TARTRATE 50 MG TABLET 62.5 MG PO ×2 (07:53→15:09)
[2022-08-14] MEDS: FLUOXETINE HCL 40 MG CAPSULE PO (07:53)
[2022-08-14] MEDS: FUROSEMIDE 40 MG TABLET 20 MG PO (07:53)
[2022-08-14] MEDS: lisinopriL 40 MG TABLET PO (07:53)
[2022-08-14] MEDS: PRESERVISION AREDS 1 EACH PO ×2 (07:54→15:09)
[2022-08-14] MEDS: ROSUVASTATIN CALCIUM 20 MG TABLET PO (07:54)
[2022-08-14] MEDS: POTASSIUM CHLORIDE 20 MEQ TAB.ER.PRT 40 MEQ PO ×2 (07:54→15:09)
[2022-08-14] MEDS: TRAMADOL HCL 50 MG TABLET PO ×2 (07:54→19:35)
[2022-08-14] MEDS: INSULIN GLARGINE,HUM.REC.ANLOG 100 UNIT/ML INSULN.PEN 22 UNIT SUBCUT (07:58)
[2022-08-14 08:05] LABS: Hemoglobin A1C* 7.14 % (0-5.6)
[2022-08-14] MEDS: BUSPIRONE 10 MG TABLET PO (08:24)
[2022-08-14 10:28] VITALS: TEMP 36.6; O2SAT 98
[2022-08-14 12:04] LABS: SARS PCR* Negative SARS-CoV-2 (Negative)
--- NOTE | 2022-08-14 14:10 | PC.NURSE ---
COVID OUTBREAK TESTING Residents daughter gave verbal consent for outbreak COVID testing. Resident is currently asymptomatic.? Resident/family will be notified only if resident is positive.
[2022-08-14 15:00] VITALS: TEMP 36.1; O2SAT 96
[2022-08-14] MEDS: BUSPIRONE 10 MG TABLET 5 MG PO (19:35)
[2022-08-14 23:00] VITALS: TEMP 37.2; O2SAT 92
[2022-08-15 07:00] VITALS: TEMP 35.9; O2SAT 98
[2022-08-15] MEDS: METOPROLOL TARTRATE 50 MG TABLET 62.5 MG PO ×2 (08:02→15:55)
[2022-08-15] MEDS: FLUOXETINE HCL 20 MG CAPSULE PO (08:02)
[2022-08-15] MEDS: lisinopriL 40 MG TABLET PO (08:02)
[2022-08-15] MEDS: ASPIRIN EC 325 MG TABLET PO (08:02)
[2022-08-15] MEDS: AMLODIPINE 10 MG TABLET PO (08:02)
[2022-08-15] MEDS: FLUOXETINE HCL 40 MG CAPSULE PO (08:02)
[2022-08-15] MEDS: FUROSEMIDE 40 MG TABLET 20 MG PO (08:02)
[2022-08-15] MEDS: PRESERVISION AREDS 1 EACH PO ×2 (08:03→15:55)
[2022-08-15] MEDS: POTASSIUM CHLORIDE 20 MEQ TAB.ER.PRT 40 MEQ PO ×2 (08:03→15:55)
[2022-08-15] MEDS: ROSUVASTATIN CALCIUM 20 MG TABLET PO (08:03)
[2022-08-15] MEDS: TRAMADOL HCL 50 MG TABLET PO ×2 (08:03→19:51)
[2022-08-15] MEDS: INSULIN GLARGINE,HUM.REC.ANLOG 100 UNIT/ML INSULN.PEN 22 UNIT SUBCUT (08:23)
[2022-08-15] MEDS: BUSPIRONE 10 MG TABLET PO (09:05)
[2022-08-15 15:00] VITALS: BP 141/78; PULSE 60; RESP 18; TEMP 36.6; TEMP 36.7; O2SAT 98
[2022-08-15 16:00] VITALS: BMI 31.1
[2022-08-15] MEDS: BUSPIRONE 10 MG TABLET 5 MG PO (19:51)
[2022-08-15 23:00] VITALS: TEMP 37.1; O2SAT 95
[2022-08-16 07:00] VITALS: TEMP 36.2; O2SAT 99
[2022-08-16] MEDS: lisinopriL 40 MG TABLET PO (08:00)
[2022-08-16] MEDS: ASPIRIN EC 325 MG TABLET PO (08:00)
[2022-08-16] MEDS: FLUOXETINE HCL 20 MG CAPSULE PO (08:00)
[2022-08-16] MEDS: FUROSEMIDE 40 MG TABLET 20 MG PO (08:00)
[2022-08-16] MEDS: AMLODIPINE 10 MG TABLET PO (08:00)
[2022-08-16] MEDS: FLUOXETINE HCL 40 MG CAPSULE PO (08:00)
[2022-08-16] MEDS: METOPROLOL TARTRATE 50 MG TABLET 62.5 MG PO ×2 (08:00→15:04)
[2022-08-16] MEDS: PRESERVISION AREDS 1 EACH PO ×2 (08:01→15:04)
[2022-08-16] MEDS: ROSUVASTATIN CALCIUM 20 MG TABLET PO (08:01)
[2022-08-16] MEDS: POTASSIUM CHLORIDE 20 MEQ TAB.ER.PRT 40 MEQ PO ×2 (08:01→15:05)
[2022-08-16] MEDS: TRAMADOL HCL 50 MG TABLET PO ×2 (08:01→19:19)
[2022-08-16] MEDS: INSULIN GLARGINE,HUM.REC.ANLOG 100 UNIT/ML INSULN.PEN 22 UNIT SUBCUT (08:18)
[2022-08-16] MEDS: BUSPIRONE 10 MG TABLET PO (09:00)
--- NOTE | 2022-08-16 14:13 | PC.PHA1 ---
TESTING AND REGULATING TECHNICIAN PHARMACIST'S MEDICATION REVIEW: MEDICATION MONITORING:Fluoxetine 40 mg and 20 mg daily on AUG (60 mg total) for depression and forms of outburst.? Buspar 10 mg qam and 5 mg hs started since last review and this is her current GDR in process. IRREGULARITY OR COMMENTS:Blood pressures have been trending normal since 07/27/22. Patient in process of receiving additional mental health service therefore will not recommend any more GDR attempts besides Buspar at this time Recent labs for glucose and hemiglobin A1c slightly elevated, blood glucose improved. SUGGESTED COURSE OF ACTION TAKEN:Long acting insulin dose could be increased if Hgb A1c up from last level in old system.
--- NOTE | 2022-08-16 14:27 | PC.SPIRITC ---
Shaista talked about feeling sad, talked about members of her family who have , especially her sister Dickson. Tearful, shrugged shoulders multiple times. I provided visit for connection, opportunity to continue to process grief and support.
[2022-08-16 15:00] VITALS: TEMP 36.9; O2SAT 97
[2022-08-16] MEDS: BUSPIRONE 10 MG TABLET 5 MG PO (19:19)
--- NOTE | 2022-08-16 22:15 | PC.NURSE ---
Eye: Resident has no drainage from left eye. No c/o pain or discomfort. She states she thinks the eyedrops help to provide some relief.
[2022-08-16 23:00] VITALS: TEMP 36.9; O2SAT 96
--- NOTE | 2022-08-17 01:49 | PC.NURSE ---
WEEKLY CHARTING - WEEK 2: Vital signs reviewed - no concerns. Temporary and comprehensive care plan reviewed - no change. Requires assist of 1 with EZ stand for all transfers. Is non-ambulatory. Assist of 1 with bed mobility. Dependent on staff to propel w/c to all destinations. Per fall risk assessment, resident is at high risk for falls. Fall interventions: gripper socks for all transfers, bed in low position with brakes locked, monitor for increased weakness and medication side effects, call light in reach, falling star magnet.
--- NOTE | 2022-08-17 06:46 | PC.NURSE ---
Week #2 - Mobility: Comprehensive care plan reviewed, no changes made. Nothing added to temporary care plan. Is non ambulatory. Needs one assist and medi stand for all transfers. Staff propel to all destinations. Once in bed is able to shift position for herself. Staff assist as needed. Has an alarm in recliner. Vital signs reviewed, no concerns. 07/27/22 has an increased in Metoprolol Fall: No fall the past month. Immediate intervention: Remains a high fall risk according to assessment done on 07/27/22. Fall intervention: call light within reach, gripper socks during transfers, monitor for increase weakness and med side effects, bed in low position brakes locked, alarm on in recliner.
[2022-08-17 07:00] VITALS: TEMP 36.6; O2SAT 95
[2022-08-17] MEDS: ASPIRIN EC 325 MG TABLET PO (08:22)
[2022-08-17] MEDS: AMLODIPINE 10 MG TABLET PO (08:22)
[2022-08-17] MEDS: POTASSIUM CHLORIDE 20 MEQ TAB.ER.PRT 40 MEQ PO ×2 (08:23→15:23)
[2022-08-17] MEDS: METOPROLOL TARTRATE 50 MG TABLET 62.5 MG PO ×2 (08:23→15:23)
[2022-08-17] MEDS: FUROSEMIDE 40 MG TABLET 20 MG PO (08:23)
[2022-08-17] MEDS: ROSUVASTATIN CALCIUM 20 MG TABLET PO (08:23)
[2022-08-17] MEDS: lisinopriL 40 MG TABLET PO (08:23)
[2022-08-17] MEDS: PRESERVISION AREDS 1 EACH PO ×2 (08:23→15:23)
[2022-08-17] MEDS: FLUOXETINE HCL 40 MG CAPSULE PO (08:23)
[2022-08-17] MEDS: FLUOXETINE HCL 20 MG CAPSULE PO (08:23)
[2022-08-17] MEDS: TRAMADOL HCL 50 MG TABLET PO ×2 (08:24→20:41)
[2022-08-17] MEDS: INSULIN GLARGINE,HUM.REC.ANLOG 100 UNIT/ML INSULN.PEN 22 UNIT SUBCUT (08:46)
[2022-08-17] MEDS: BUSPIRONE 10 MG TABLET PO (09:12)
--- NOTE | 2022-08-17 09:43 | PC.SPIRITC ---
I provided visit for support and connection.
--- NOTE | 2022-08-17 13:46 | PC.NURSE ---
Alarm: In bed and recliner removed, not needed.
[2022-08-17 15:00] VITALS: TEMP 37.1; O2SAT 97
--- NOTE | 2022-08-17 18:01 | PC.NURSE ---
Reviewed pharmacy medication review. At this time ELECTRICAL ENGINEERING INTERN has rejected the recommendation A1C on 08/14 was 7.14 which is appropriate level of age. No insulin adjustment.
[2022-08-17] MEDS: BUSPIRONE 10 MG TABLET 5 MG PO (20:41)
[2022-08-17 23:00] VITALS: TEMP 36.5; O2SAT 96
[2022-08-18] MEDS: AMLODIPINE 10 MG TABLET PO (07:25)
[2022-08-18] MEDS: ASPIRIN EC 325 MG TABLET PO (07:25)
[2022-08-18] MEDS: METOPROLOL TARTRATE 50 MG TABLET 62.5 MG PO ×2 (07:26→16:08)
[2022-08-18] MEDS: lisinopriL 40 MG TABLET PO (07:26)
[2022-08-18] MEDS: FUROSEMIDE 40 MG TABLET 20 MG PO (07:26)
[2022-08-18] MEDS: FLUOXETINE HCL 40 MG CAPSULE PO (07:26)
[2022-08-18] MEDS: FLUOXETINE HCL 20 MG CAPSULE PO (07:26)
[2022-08-18] MEDS: PRESERVISION AREDS 1 EACH PO ×2 (07:27→16:08)
[2022-08-18] MEDS: POTASSIUM CHLORIDE 20 MEQ TAB.ER.PRT 40 MEQ PO ×2 (07:29→16:08)
[2022-08-18] MEDS: TRAMADOL HCL 50 MG TABLET PO ×2 (07:29→19:18)
[2022-08-18] MEDS: ROSUVASTATIN CALCIUM 20 MG TABLET PO (07:29)
[2022-08-18] MEDS: INSULIN GLARGINE,HUM.REC.ANLOG 100 UNIT/ML INSULN.PEN 22 UNIT SUBCUT (08:10)
[2022-08-18] MEDS: BUSPIRONE 10 MG TABLET PO (08:11)
[2022-08-18 10:22] VITALS: TEMP 36.4; O2SAT 92
[2022-08-18 15:00] VITALS: TEMP 36.1; O2SAT 96
[2022-08-18] MEDS: BUSPIRONE 10 MG TABLET 5 MG PO (19:18)
[2022-08-18 23:00] VITALS: TEMP 36.6; O2SAT 93
[2022-08-19] MEDS: INSULIN GLARGINE,HUM.REC.ANLOG 100 UNIT/ML INSULN.PEN 22 UNIT SUBCUT (08:15)
[2022-08-19] MEDS: AMLODIPINE 10 MG TABLET PO (08:15)
[2022-08-19] MEDS: ASPIRIN EC 325 MG TABLET PO (08:15)
[2022-08-19] MEDS: FLUOXETINE HCL 20 MG CAPSULE PO (08:16)
[2022-08-19] MEDS: METOPROLOL TARTRATE 50 MG TABLET 62.5 MG PO ×2 (08:16→15:37)
[2022-08-19] MEDS: FLUOXETINE HCL 40 MG CAPSULE PO (08:16)
[2022-08-19] MEDS: FUROSEMIDE 40 MG TABLET 20 MG PO (08:16)
[2022-08-19] MEDS: lisinopriL 40 MG TABLET PO (08:16)
[2022-08-19] MEDS: POTASSIUM CHLORIDE 20 MEQ TAB.ER.PRT 40 MEQ PO ×2 (08:17→15:37)
[2022-08-19] MEDS: PRESERVISION AREDS 1 EACH PO ×2 (08:17→15:37)
[2022-08-19] MEDS: BUSPIRONE 10 MG TABLET PO (08:18)
[2022-08-19] MEDS: ROSUVASTATIN CALCIUM 20 MG TABLET PO (08:18)
[2022-08-19] MEDS: TRAMADOL HCL 50 MG TABLET PO ×2 (08:18→20:32)
[2022-08-19 10:09] VITALS: TEMP 36.5; O2SAT 99
[2022-08-19 15:00] VITALS: TEMP 36.1; O2SAT 97
[2022-08-19] MEDS: BUSPIRONE 10 MG TABLET 5 MG PO (20:32)
[2022-08-19 23:00] VITALS: TEMP 36.6; O2SAT 95
[2022-08-20] MEDS: AMLODIPINE 10 MG TABLET PO (08:25)
[2022-08-20] MEDS: ASPIRIN EC 325 MG TABLET PO (08:25)
[2022-08-20] MEDS: lisinopriL 40 MG TABLET PO (08:26)
[2022-08-20] MEDS: METOPROLOL TARTRATE 50 MG TABLET 62.5 MG PO ×2 (08:26→15:22)
[2022-08-20] MEDS: FLUOXETINE HCL 20 MG CAPSULE PO (08:26)
[2022-08-20] MEDS: FLUOXETINE HCL 40 MG CAPSULE PO (08:26)
[2022-08-20] MEDS: INSULIN GLARGINE,HUM.REC.ANLOG 100 UNIT/ML INSULN.PEN 22 UNIT SUBCUT (08:26)
[2022-08-20] MEDS: FUROSEMIDE 40 MG TABLET 20 MG PO (08:26)
[2022-08-20] MEDS: PRESERVISION AREDS 1 EACH PO ×2 (08:27→15:22)
[2022-08-20] MEDS: POTASSIUM CHLORIDE 20 MEQ TAB.ER.PRT 40 MEQ PO ×2 (08:28→15:22)
[2022-08-20] MEDS: TRAMADOL HCL 50 MG TABLET PO ×2 (08:28→19:17)
[2022-08-20] MEDS: ROSUVASTATIN CALCIUM 20 MG TABLET PO (08:28)
[2022-08-20] MEDS: BUSPIRONE 10 MG TABLET PO (08:28)
[2022-08-20 10:28] VITALS: TEMP 36.3; O2SAT 92
--- NOTE | 2022-08-20 10:28 | PC.NURSE ---
Catheter: Catheter was changed this shift using 20F 10cc balloon with yellow urine return, no issues noted.
--- NOTE | 2022-08-20 11:28 | PC.NURSE ---
Status: Was noted that resident's right hand is swollen. Resident denies any pain to area. Hand elevated on pillow, will set up intervention to monitor.
[2022-08-20 15:00] VITALS: TEMP 36.2; O2SAT 97
[2022-08-20] MEDS: BUSPIRONE 10 MG TABLET 5 MG PO (19:17)
[2022-08-20 23:00] VITALS: TEMP 36.3; O2SAT 97
[2022-08-21] MEDS: AMLODIPINE 10 MG TABLET PO (07:46)
[2022-08-21] MEDS: FLUOXETINE HCL 40 MG CAPSULE PO (07:46)
[2022-08-21] MEDS: FLUOXETINE HCL 20 MG CAPSULE PO (07:46)
[2022-08-21] MEDS: ASPIRIN EC 325 MG TABLET PO (07:46)
[2022-08-21] MEDS: lisinopriL 40 MG TABLET PO (07:47)
[2022-08-21] MEDS: METOPROLOL TARTRATE 50 MG TABLET 62.5 MG PO ×2 (07:47→16:15)
[2022-08-21] MEDS: FUROSEMIDE 40 MG TABLET 20 MG PO (07:47)
[2022-08-21] MEDS: PRESERVISION AREDS 1 EACH PO ×2 (07:48→16:16)
[2022-08-21] MEDS: POTASSIUM CHLORIDE 20 MEQ TAB.ER.PRT 40 MEQ PO ×2 (07:48→16:15)
[2022-08-21] MEDS: ROSUVASTATIN CALCIUM 20 MG TABLET PO (07:49)
[2022-08-21] MEDS: TRAMADOL HCL 50 MG TABLET PO ×2 (07:49→19:49)
[2022-08-21] MEDS: BUSPIRONE 10 MG TABLET PO (08:30)
[2022-08-21] MEDS: INSULIN GLARGINE,HUM.REC.ANLOG 100 UNIT/ML INSULN.PEN 22 UNIT SUBCUT (08:30)
[2022-08-21 09:42] VITALS: TEMP 36.6; O2SAT 96
--- NOTE | 2022-08-21 09:50 | PC.NURSE ---
Status; Right hand continues to be swollen with hand elevated on a pillow.
--- NOTE | 2022-08-21 11:25 | PC.NURSE ---
COVID OUTBREAK TESTING Residents daughter gave verbal consent for outbreak COVID testing. Resident is currently asymptomatic.? Resident/family will be notified only if resident is positive.
[2022-08-21 12:11] LABS: SARS PCR* Negative SARS-CoV-2 (Negative)
[2022-08-21 15:00] VITALS: TEMP 36.6; O2SAT 98
[2022-08-21] MEDS: BUSPIRONE 10 MG TABLET 5 MG PO (19:49)
[2022-08-21 23:00] VITALS: TEMP 36.6; O2SAT 95
[2022-08-22] MEDS: METOPROLOL TARTRATE 50 MG TABLET 62.5 MG PO ×2 (08:10→16:30)
[2022-08-22] MEDS: AMLODIPINE 10 MG TABLET PO (08:10)
[2022-08-22] MEDS: ASPIRIN EC 325 MG TABLET PO (08:10)
[2022-08-22] MEDS: FLUOXETINE HCL 20 MG CAPSULE PO (08:10)
[2022-08-22] MEDS: FUROSEMIDE 40 MG TABLET 20 MG PO (08:10)
[2022-08-22] MEDS: FLUOXETINE HCL 40 MG CAPSULE PO (08:10)
[2022-08-22] MEDS: lisinopriL 40 MG TABLET PO (08:10)
[2022-08-22] MEDS: INSULIN GLARGINE,HUM.REC.ANLOG 100 UNIT/ML INSULN.PEN 22 UNIT SUBCUT (08:10)
[2022-08-22] MEDS: TRAMADOL HCL 50 MG TABLET PO ×2 (08:11→19:39)
[2022-08-22] MEDS: ROSUVASTATIN CALCIUM 20 MG TABLET PO (08:11)
[2022-08-22] MEDS: PRESERVISION AREDS 1 EACH PO (08:11)
[2022-08-22] MEDS: POTASSIUM CHLORIDE 20 MEQ TAB.ER.PRT 40 MEQ PO (08:11)
[2022-08-22] MEDS: BUSPIRONE 10 MG TABLET PO (08:11)
[2022-08-22 10:08] VITALS: TEMP 36.2; O2SAT 97
--- NOTE | 2022-08-22 11:30 | PC.NURSE ---
Wound assessment: assessed friction wound to lower right buttock with AUTO LEASING MANAGER and bid writer. Wound measurements 0.5 x0.3 cm, 100% granulation present. Wound edges intact. No drainage. No s/s infection. No pain. Will continue current treatment. AUTO LEASING MANAGER to reassess in 1 week.
--- NOTE | 2022-08-22 12:40 | PC.NURSE ---
Status/Order: Daughter here, requested GANG MINER to review meds and discontinue not needed. Order: D/C Aspirin, Lasix 20mg, Rovustatin Calcium & Preservision Areds. Decrease Potassium Chloride 40mg BID to daily.
[2022-08-22 15:00] VITALS: BP 141/78; PULSE 60; PULSE 95; RESP 18; TEMP 36.2; TEMP 36.6; O2SAT 95
[2022-08-22] MEDS: BUSPIRONE 10 MG TABLET 5 MG PO (19:39)
[2022-08-22 23:00] VITALS: TEMP 36.2; O2SAT 95
[2022-08-23] MEDS: FLUOXETINE HCL 20 MG CAPSULE PO (07:59)
[2022-08-23] MEDS: FLUOXETINE HCL 40 MG CAPSULE PO (07:59)
[2022-08-23] MEDS: lisinopriL 40 MG TABLET PO (07:59)
[2022-08-23] MEDS: AMLODIPINE 10 MG TABLET PO (07:59)
[2022-08-23] MEDS: METOPROLOL TARTRATE 50 MG TABLET 62.5 MG PO ×2 (07:59→15:27)
[2022-08-23] MEDS: POTASSIUM CHLORIDE 20 MEQ TAB.ER.PRT 40 MEQ PO (08:00)
[2022-08-23] MEDS: BUSPIRONE 10 MG TABLET PO (08:01)
[2022-08-23] MEDS: TRAMADOL HCL 50 MG TABLET PO ×2 (08:03→19:40)
[2022-08-23] MEDS: INSULIN GLARGINE,HUM.REC.ANLOG 100 UNIT/ML INSULN.PEN 22 UNIT SUBCUT (08:04)
[2022-08-23 10:33] VITALS: TEMP 36.6; O2SAT 97
[2022-08-23 13:15] VITALS: BMI 32.1
[2022-08-23 15:00] VITALS: TEMP 36.6; O2SAT 95
[2022-08-23] MEDS: BUSPIRONE 10 MG TABLET 5 MG PO (19:40)
[2022-08-23 23:54] VITALS: TEMP 36.4; O2SAT 96
--- NOTE | 2022-08-24 00:41 | PC.NURSE ---
WEEKLY CHARTING - Week 3 : Toileting and Skin. Vital sign and temporary care plan was reviewed with no changes. /resident has a suprapubic catheter which is emptied by staff during each shift. The catheter and bag is changes as per scheduled and catheter irrigation as ordered. Resident also uses EZ stand transfer to go to the bathroom for BM and she assist X 1 with edward-care. Dressing is changed twice a day at the catheter stoma. Resident skin is good overall except she has a pressure wound due shearing which is healing well. She also has pitting edema on BLE whereby TEDs is used to reduce swelling.
--- NOTE | 2022-08-24 06:53 | PC.NURSE ---
Weekly week #3: Vital signs reviewed with no changes Temporary care plan reviewed with no changes Care plan reviewed with no changes Resident has very small open area on the coccyx that is healing. Resident has a cifuentes cath and is sometimes incontinent of bowel but mostly is continent Resident is able to brush teeth after set up but staff do all other ADLS
[2022-08-24 07:00] VITALS: BMI 32.2
[2022-08-24] MEDS: lisinopriL 40 MG TABLET PO (07:34)
[2022-08-24] MEDS: FLUOXETINE HCL 40 MG CAPSULE PO (07:34)
[2022-08-24] MEDS: FLUOXETINE HCL 20 MG CAPSULE PO (07:34)
[2022-08-24] MEDS: AMLODIPINE 10 MG TABLET PO (07:34)
[2022-08-24] MEDS: METOPROLOL TARTRATE 50 MG TABLET 62.5 MG PO ×2 (07:35→16:03)
[2022-08-24] MEDS: POTASSIUM CHLORIDE 20 MEQ TAB.ER.PRT 40 MEQ PO (07:35)
[2022-08-24] MEDS: TRAMADOL HCL 50 MG TABLET PO ×2 (07:39→20:01)
[2022-08-24] MEDS: INSULIN GLARGINE,HUM.REC.ANLOG 100 UNIT/ML INSULN.PEN 22 UNIT SUBCUT (07:40)
[2022-08-24] MEDS: BUSPIRONE 10 MG TABLET PO (08:23)
[2022-08-24 09:56] VITALS: TEMP 36.5; O2SAT 97
[2022-08-24 15:00] VITALS: TEMP 36.2; O2SAT 96
[2022-08-24] MEDS: BUSPIRONE 10 MG TABLET 5 MG PO (20:01)
[2022-08-24 23:00] VITALS: TEMP 36.6; O2SAT 93
--- NOTE | 2022-08-25 03:55 | PC.NURSE ---
Week 3 TOILETING AND SKIN Vital signs reviewed with no changes Temporary care plan reviewed with no changes Care plan reviewed with no changes Resident does not have any open area ; around stoma of catheter is cleaned daily with dressing changed. Resident has a Mathews cath, change every two weeks ; she is continent of bowel. Resident got repositioned every 2.5 hours.
--- NOTE | 2022-08-25 06:37 | PC.NURSE ---
Output Resident had 250 cc more as output .
[2022-08-25 07:00] VITALS: TEMP 36.8; O2SAT 97; BMI 32.1
[2022-08-25] MEDS: lisinopriL 40 MG TABLET PO (07:57)
[2022-08-25] MEDS: FLUOXETINE HCL 40 MG CAPSULE PO (07:57)
[2022-08-25] MEDS: FLUOXETINE HCL 20 MG CAPSULE PO (07:57)
[2022-08-25] MEDS: AMLODIPINE 10 MG TABLET PO (07:57)
[2022-08-25] MEDS: METOPROLOL TARTRATE 50 MG TABLET 62.5 MG PO ×2 (07:58→15:58)
[2022-08-25] MEDS: POTASSIUM CHLORIDE 20 MEQ TAB.ER.PRT 40 MEQ PO (07:59)
[2022-08-25] MEDS: TRAMADOL HCL 50 MG TABLET PO ×2 (08:02→19:21)
[2022-08-25] MEDS: INSULIN GLARGINE,HUM.REC.ANLOG 100 UNIT/ML INSULN.PEN 22 UNIT SUBCUT (08:09)
[2022-08-25] MEDS: BUSPIRONE 10 MG TABLET PO (09:09)
[2022-08-25 15:00] VITALS: TEMP 36.8; O2SAT 96
[2022-08-25] MEDS: BUSPIRONE 10 MG TABLET 5 MG PO (19:21)
[2022-08-26 01:10] VITALS: TEMP 37; O2SAT 96
[2022-08-26 07:00] VITALS: TEMP 36.6; O2SAT 98
[2022-08-26] MEDS: AMLODIPINE 10 MG TABLET PO (08:18)
[2022-08-26] MEDS: INSULIN GLARGINE,HUM.REC.ANLOG 100 UNIT/ML INSULN.PEN 22 UNIT SUBCUT (08:18)
[2022-08-26] MEDS: POTASSIUM CHLORIDE 20 MEQ TAB.ER.PRT 40 MEQ PO (08:19)
[2022-08-26] MEDS: METOPROLOL TARTRATE 50 MG TABLET 62.5 MG PO ×2 (08:19→16:16)
[2022-08-26] MEDS: FLUOXETINE HCL 40 MG CAPSULE PO (08:19)
[2022-08-26] MEDS: lisinopriL 40 MG TABLET PO (08:19)
[2022-08-26] MEDS: FLUOXETINE HCL 20 MG CAPSULE PO (08:19)
[2022-08-26] MEDS: TRAMADOL HCL 50 MG TABLET PO ×2 (08:19→19:19)
[2022-08-26] MEDS: BUSPIRONE 10 MG TABLET PO (09:03)
--- NOTE | 2022-08-26 13:57 | PC.NURSE ---
Resident had 2 episode of loose stool during this shift. Will update staff to continues to monitor.
[2022-08-26 15:00] VITALS: TEMP 36.6; O2SAT 98
[2022-08-26] MEDS: BUSPIRONE 10 MG TABLET 5 MG PO (19:19)
[2022-08-27 00:17] VITALS: TEMP 36.6; O2SAT 94
[2022-08-27 07:00] VITALS: TEMP 36.8; O2SAT 96
[2022-08-27] MEDS: lisinopriL 40 MG TABLET PO (08:53)
[2022-08-27] MEDS: METOPROLOL TARTRATE 50 MG TABLET 62.5 MG PO ×2 (08:53→16:05)
[2022-08-27] MEDS: FLUOXETINE HCL 20 MG CAPSULE PO (08:53)
[2022-08-27] MEDS: AMLODIPINE 10 MG TABLET PO (08:53)
[2022-08-27] MEDS: FLUOXETINE HCL 40 MG CAPSULE PO (08:53)
[2022-08-27] MEDS: TRAMADOL HCL 50 MG TABLET PO ×2 (08:54→19:25)
[2022-08-27] MEDS: POTASSIUM CHLORIDE 20 MEQ TAB.ER.PRT 40 MEQ PO (08:54)
[2022-08-27] MEDS: INSULIN GLARGINE,HUM.REC.ANLOG 100 UNIT/ML INSULN.PEN 22 UNIT SUBCUT (09:00)
[2022-08-27] MEDS: BUSPIRONE 10 MG TABLET PO (09:31)
[2022-08-27 15:00] VITALS: TEMP 36.6; O2SAT 97
[2022-08-27] MEDS: BUSPIRONE 10 MG TABLET 5 MG PO (19:25)
[2022-08-27] MEDS: NYSTATIN POWDER 1 APPLIC TOPICAL (21:19)
[2022-08-27 23:00] VITALS: TEMP 36.4; O2SAT 95
[2022-08-28] MEDS: INSULIN GLARGINE,HUM.REC.ANLOG 100 UNIT/ML INSULN.PEN 22 UNIT SUBCUT (08:24)
[2022-08-28] MEDS: AMLODIPINE 10 MG TABLET PO (08:24)
[2022-08-28] MEDS: FLUOXETINE HCL 40 MG CAPSULE PO (08:24)
[2022-08-28] MEDS: FLUOXETINE HCL 20 MG CAPSULE PO (08:24)
[2022-08-28] MEDS: lisinopriL 40 MG TABLET PO (08:25)
[2022-08-28] MEDS: METOPROLOL TARTRATE 50 MG TABLET 62.5 MG PO ×2 (08:25→16:38)
[2022-08-28] MEDS: POTASSIUM CHLORIDE 20 MEQ TAB.ER.PRT 40 MEQ PO (08:26)
[2022-08-28] MEDS: TRAMADOL HCL 50 MG TABLET PO ×2 (08:26→19:42)
[2022-08-28] MEDS: BUSPIRONE 10 MG TABLET PO (08:27)
[2022-08-28 10:46] VITALS: TEMP 36.3; O2SAT 96
--- NOTE | 2022-08-28 12:06 | PC.NURSE ---
COVID OUTBREAK TESTING Residents daughter gave verbal consent for outbreak COVID testing. Resident is currently asymptomatic.? Resident/family will be notified only if resident is positive.
[2022-08-28 15:00] VITALS: TEMP 36.4; O2SAT 93
[2022-08-28 15:43] LABS: SARS PCR* Negative SARS-CoV-2 (Negative)
[2022-08-28] MEDS: BUSPIRONE 10 MG TABLET 5 MG PO (19:40)
[2022-08-28 23:00] VITALS: TEMP 36.6; O2SAT 97
[2022-08-29] MEDS: NYSTATIN POWDER 1 APPLIC TOPICAL (08:37)
[2022-08-29] MEDS: AMLODIPINE 10 MG TABLET PO (08:39)
[2022-08-29] MEDS: INSULIN GLARGINE,HUM.REC.ANLOG 100 UNIT/ML INSULN.PEN 22 UNIT SUBCUT (08:39)
[2022-08-29] MEDS: FLUOXETINE HCL 40 MG CAPSULE PO (08:40)
[2022-08-29] MEDS: lisinopriL 40 MG TABLET PO (08:40)
[2022-08-29] MEDS: FLUOXETINE HCL 20 MG CAPSULE PO (08:40)
[2022-08-29] MEDS: METOPROLOL TARTRATE 50 MG TABLET 62.5 MG PO ×2 (08:40→16:10)
[2022-08-29] MEDS: BUSPIRONE 10 MG TABLET PO (08:41)
[2022-08-29] MEDS: TRAMADOL HCL 50 MG TABLET PO ×2 (08:41→19:27)
[2022-08-29] MEDS: POTASSIUM CHLORIDE 20 MEQ TAB.ER.PRT 40 MEQ PO (08:41)
[2022-08-29 10:04] VITALS: TEMP 36.5; O2SAT 98
--- NOTE | 2022-08-29 11:20 | PC.NURSE ---
Wound to buttock: Residents wounds to buttock assessed with principal technical writer and MAPLE SUGAR MAKER. Healed at this time. Mepilex no longer needed. Use of protective cream with zinc during toileting cares. Intervetnion updated.
[2022-08-29] MEDS: BUSPIRONE 10 MG TABLET 5 MG PO (19:27)
[2022-08-29 22:24] VITALS: BP 137/67; PULSE 67; RESP 16; TEMP 36.4; O2SAT 96; BMI 31.9
[2022-08-29 23:00] VITALS: TEMP 36.6; O2SAT 94
[2022-08-30 07:00] VITALS: TEMP 36.2; O2SAT 98
[2022-08-30] MEDS: AMLODIPINE 10 MG TABLET PO (07:01)
[2022-08-30] MEDS: FLUOXETINE HCL 20 MG CAPSULE PO (07:02)
[2022-08-30] MEDS: METOPROLOL TARTRATE 50 MG TABLET 62.5 MG PO ×2 (07:02→15:15)
[2022-08-30] MEDS: POTASSIUM CHLORIDE 20 MEQ TAB.ER.PRT 40 MEQ PO (07:02)
[2022-08-30] MEDS: lisinopriL 40 MG TABLET PO (07:02)
[2022-08-30] MEDS: FLUOXETINE HCL 40 MG CAPSULE PO (07:02)
[2022-08-30] MEDS: TRAMADOL HCL 50 MG TABLET PO ×2 (07:02→19:18)
[2022-08-30] MEDS: INSULIN GLARGINE,HUM.REC.ANLOG 100 UNIT/ML INSULN.PEN 22 UNIT SUBCUT (07:28)
[2022-08-30 07:40] LABS: Chloride* 105 mmol/L (96-114); Potassium* 3.3 mmol/L (3.6-5.1); Sodium* 137 mmol/L (135-149)
[2022-08-30 07:42] LABS: Creatinine* 0.5 mg/dL (0.5-1.5); Est. Creatinine Clearance* 35.26; Estimated Glomerular Filt Rate 93 ml/min
[2022-08-30 07:43] LABS: Blood Urea Nitrogen* 11 mg/dL (7-30); Calcium* 8.6 mg/dL (8.4-10.6); Carbon Dioxide* 25 mmol/L (20-32); Glucose* 172 mg/dL (60-115)
[2022-08-30] MEDS: BUSPIRONE 10 MG TABLET PO (08:00)
--- NOTE | 2022-08-30 08:03 | PC.NURSE ---
Skin: Butt skin viewed by PRODUCT AMBASSADOR. Mepilex removed, continue with Sensi care.
[2022-08-30 15:00] VITALS: TEMP 36.2; O2SAT 96
[2022-08-30] MEDS: BUSPIRONE 10 MG TABLET 5 MG PO (19:18)
[2022-08-30 23:00] VITALS: TEMP 36.4; O2SAT 94
--- NOTE | 2022-08-31 03:26 | PC.NURSE ---
WEEKLY CHARTING - WEEK 4: Vital signs reviewed - no concerns. Temporary and comprehensive care plan reviewed - no change. No documented behaviors in the last month. mood, behavior, and sleep pattern unchanged. Receives fluoxetine 60mg daily and buspirone 10mg Q AM & 5mg a HS with no adverse effects. No change in communication, hearing, vision, or orientation status. All medications administered by licensed nurse. No change in health condition.
[2022-08-31 07:00] VITALS: TEMP 36.5; O2SAT 97
[2022-08-31] MEDS: AMLODIPINE 10 MG TABLET PO (07:00)
[2022-08-31] MEDS: POTASSIUM CHLORIDE 20 MEQ TAB.ER.PRT 40 MEQ PO (07:01)
[2022-08-31] MEDS: METOPROLOL TARTRATE 50 MG TABLET 62.5 MG PO ×2 (07:01→16:22)
[2022-08-31] MEDS: FLUOXETINE HCL 20 MG CAPSULE PO (07:01)
[2022-08-31] MEDS: lisinopriL 40 MG TABLET PO (07:01)
[2022-08-31] MEDS: TRAMADOL HCL 50 MG TABLET PO ×2 (07:01→19:30)
[2022-08-31] MEDS: FLUOXETINE HCL 40 MG CAPSULE PO (07:01)
[2022-08-31] MEDS: INSULIN GLARGINE,HUM.REC.ANLOG 100 UNIT/ML INSULN.PEN 22 UNIT SUBCUT (08:03)
[2022-08-31] MEDS: BUSPIRONE 10 MG TABLET PO (08:03)
--- NOTE | 2022-08-31 13:16 | PC.NURSE ---
Addendum entered by Marry Santizo RN 08/31/22 13:27: Continues on Prozac 60mg daily with no adverse effects noted. Original Note: Week #4: Comprehensive & temporary care plan reviewed, no changes made. Nothing added to temporary care plan. No changes in communication, hearing, vision, or orientation. Resident does communicate needs and use the call light. Hearing no issues. Wears glasses to correct visual impairment. Chronic health condition stable. Has cognitive impairment. Nurse administer all medication. Has occasional elevated BP's, continue weekly vital signs monitoring. Mood/Behavior: No issues the past month. 07/06/21 has a decrease in Buspar. No adverse effects, no change in mood. Continue to monitor for changes.
[2022-08-31 15:00] VITALS: TEMP 36.6; O2SAT 97
[2022-08-31] MEDS: BUSPIRONE 10 MG TABLET 5 MG PO (19:30)
[2022-08-31 23:00] VITALS: TEMP 36.8; O2SAT 97
[2022-09-01] MEDS: AMLODIPINE 10 MG TABLET PO (08:37)
[2022-09-01] MEDS: INSULIN GLARGINE,HUM.REC.ANLOG 100 UNIT/ML INSULN.PEN 22 UNIT SUBCUT (08:37)
[2022-09-01] MEDS: FLUOXETINE HCL 20 MG CAPSULE PO (08:38)
[2022-09-01] MEDS: METOPROLOL TARTRATE 50 MG TABLET 62.5 MG PO ×2 (08:38→15:13)
[2022-09-01] MEDS: lisinopriL 40 MG TABLET PO (08:38)
[2022-09-01] MEDS: FLUOXETINE HCL 40 MG CAPSULE PO (08:38)
[2022-09-01] MEDS: TRAMADOL HCL 50 MG TABLET PO ×2 (08:39→19:32)
[2022-09-01] MEDS: POTASSIUM CHLORIDE 20 MEQ TAB.ER.PRT 40 MEQ PO ×2 (08:39→15:14)
[2022-09-01] MEDS: BUSPIRONE 10 MG TABLET PO (08:40)
--- NOTE | 2022-09-01 10:01 | PC.NURSE ---
Order: Received written order from Artemio FLAHERTY. Resume Potassium 40meq BID for hypokalemia. Check BMP on 09/19/22.
[2022-09-01 11:00] VITALS: TEMP 36.4; O2SAT 96
[2022-09-01 15:00] VITALS: TEMP 36.3; O2SAT 96
[2022-09-01] MEDS: BUSPIRONE 10 MG TABLET 5 MG PO (19:32)
[2022-09-01 23:00] VITALS: TEMP 36.6; O2SAT 95
[2022-09-02] MEDS: FLUOXETINE HCL 20 MG CAPSULE PO (07:30)
[2022-09-02] MEDS: lisinopriL 40 MG TABLET PO (07:30)
[2022-09-02] MEDS: FLUOXETINE HCL 40 MG CAPSULE PO (07:30)
[2022-09-02] MEDS: METOPROLOL TARTRATE 50 MG TABLET 62.5 MG PO ×2 (07:30→15:37)
[2022-09-02] MEDS: AMLODIPINE 10 MG TABLET PO (07:30)
[2022-09-02] MEDS: POTASSIUM CHLORIDE 20 MEQ TAB.ER.PRT 40 MEQ PO ×2 (07:32→15:38)
[2022-09-02] MEDS: TRAMADOL HCL 50 MG TABLET PO ×2 (07:32→19:54)
[2022-09-02] MEDS: INSULIN GLARGINE,HUM.REC.ANLOG 100 UNIT/ML INSULN.PEN 22 UNIT SUBCUT (08:55)
[2022-09-02] MEDS: BUSPIRONE 10 MG TABLET PO (09:59)
[2022-09-02 13:03] VITALS: TEMP 36.6; O2SAT 96
[2022-09-02 15:00] VITALS: TEMP 36.6; O2SAT 96
[2022-09-02] MEDS: BUSPIRONE 10 MG TABLET 5 MG PO (19:54)
[2022-09-02 23:00] VITALS: TEMP 36.4; O2SAT 95
[2022-09-03] MEDS: AMLODIPINE 10 MG TABLET PO (07:54)
[2022-09-03] MEDS: FLUOXETINE HCL 40 MG CAPSULE PO (07:54)
[2022-09-03] MEDS: FLUOXETINE HCL 20 MG CAPSULE PO (07:54)
[2022-09-03] MEDS: METOPROLOL TARTRATE 50 MG TABLET 62.5 MG PO ×2 (07:55→15:28)
[2022-09-03] MEDS: TRAMADOL HCL 50 MG TABLET PO ×2 (07:55→19:52)
[2022-09-03] MEDS: POTASSIUM CHLORIDE 20 MEQ TAB.ER.PRT 40 MEQ PO ×2 (07:55→15:28)
[2022-09-03] MEDS: lisinopriL 40 MG TABLET PO (07:55)
[2022-09-03] MEDS: INSULIN GLARGINE,HUM.REC.ANLOG 100 UNIT/ML INSULN.PEN 22 UNIT SUBCUT (08:31)
[2022-09-03] MEDS: BUSPIRONE 10 MG TABLET PO (08:31)
[2022-09-03 10:33] VITALS: TEMP 36.6; O2SAT 96
[2022-09-03 15:00] VITALS: TEMP 36.2; O2SAT 96
[2022-09-03] MEDS: BUSPIRONE 10 MG TABLET 5 MG PO (19:52)
[2022-09-03 23:00] VITALS: TEMP 36.6; O2SAT 96
[2022-09-04] MEDS: AMLODIPINE 10 MG TABLET PO (07:47)
[2022-09-04] MEDS: lisinopriL 40 MG TABLET PO (07:48)
[2022-09-04] MEDS: METOPROLOL TARTRATE 50 MG TABLET 62.5 MG PO ×2 (07:48→15:11)
[2022-09-04] MEDS: FLUOXETINE HCL 20 MG CAPSULE PO (07:48)
[2022-09-04] MEDS: FLUOXETINE HCL 40 MG CAPSULE PO (07:48)
[2022-09-04] MEDS: TRAMADOL HCL 50 MG TABLET PO ×2 (07:49→20:30)
[2022-09-04] MEDS: POTASSIUM CHLORIDE 20 MEQ TAB.ER.PRT 40 MEQ PO ×2 (07:49→15:11)
[2022-09-04] MEDS: BUSPIRONE 10 MG TABLET PO (08:34)
[2022-09-04] MEDS: INSULIN GLARGINE,HUM.REC.ANLOG 100 UNIT/ML INSULN.PEN 22 UNIT SUBCUT (08:34)
--- NOTE | 2022-09-04 10:00 | PC.NURSE ---
COVID OUTBREAK TESTING Resident and residents daughter gave verbal consent for outbreak COVID testing. Resident is currently asymptomatic.? Resident/family will be notified only if resident is positive.
[2022-09-04 10:14] VITALS: TEMP 36.3; O2SAT 96
[2022-09-04 11:27] LABS: SARS PCR* Negative SARS-CoV-2 (Negative)
[2022-09-04] MEDS: BUSPIRONE 10 MG TABLET 5 MG PO (20:30)
[2022-09-04 21:23] VITALS: TEMP 36.3; O2SAT 95
[2022-09-04 23:00] VITALS: TEMP 36.5; O2SAT 97
[2022-09-05 07:00] VITALS: TEMP 36.5; O2SAT 97
[2022-09-05] MEDS: AMLODIPINE 10 MG TABLET PO (07:38)
[2022-09-05] MEDS: METOPROLOL TARTRATE 50 MG TABLET 62.5 MG PO ×2 (07:38→15:32)
[2022-09-05] MEDS: FLUOXETINE HCL 20 MG CAPSULE PO (07:38)
[2022-09-05] MEDS: FLUOXETINE HCL 40 MG CAPSULE PO (07:38)
[2022-09-05] MEDS: lisinopriL 40 MG TABLET PO (07:38)
[2022-09-05] MEDS: TRAMADOL HCL 50 MG TABLET PO ×2 (07:39→19:54)
[2022-09-05] MEDS: POTASSIUM CHLORIDE 20 MEQ TAB.ER.PRT 40 MEQ PO ×2 (07:39→15:32)
[2022-09-05] MEDS: INSULIN GLARGINE,HUM.REC.ANLOG 100 UNIT/ML INSULN.PEN 22 UNIT SUBCUT (07:44)
[2022-09-05] MEDS: BUSPIRONE 10 MG TABLET PO (08:00)
--- NOTE | 2022-09-05 10:36 | PC.SPIRITC ---
I provided visit for connection and support.
[2022-09-05 15:00] VITALS: BP 137/67; PULSE 60; PULSE 67; RESP 16; TEMP 36.5; O2SAT 96; O2SAT 97
[2022-09-05] MEDS: BUSPIRONE 10 MG TABLET 5 MG PO (19:54)
[2022-09-05 23:00] VITALS: TEMP 37; O2SAT 97
[2022-09-06 07:00] VITALS: TEMP 36.9; O2SAT 97
[2022-09-06] MEDS: AMLODIPINE 10 MG TABLET PO (07:16)
[2022-09-06] MEDS: FLUOXETINE HCL 40 MG CAPSULE PO (07:16)
[2022-09-06] MEDS: lisinopriL 40 MG TABLET PO (07:17)
[2022-09-06] MEDS: FLUOXETINE HCL 20 MG CAPSULE PO (07:17)
[2022-09-06] MEDS: METOPROLOL TARTRATE 50 MG TABLET 62.5 MG PO ×2 (07:17→15:19)
[2022-09-06] MEDS: POTASSIUM CHLORIDE 20 MEQ TAB.ER.PRT 40 MEQ PO ×2 (07:19→15:19)
[2022-09-06] MEDS: TRAMADOL HCL 50 MG TABLET PO ×2 (07:23→19:37)
[2022-09-06] MEDS: INSULIN GLARGINE,HUM.REC.ANLOG 100 UNIT/ML INSULN.PEN 22 UNIT SUBCUT (07:30)
[2022-09-06] MEDS: BUSPIRONE 10 MG TABLET PO (08:11)
[2022-09-06 15:00] VITALS: TEMP 36.3; O2SAT 96
[2022-09-06] MEDS: BUSPIRONE 10 MG TABLET 5 MG PO (19:37)
[2022-09-06 23:26] VITALS: TEMP 36.8; O2SAT 91
--- NOTE | 2022-09-07 02:14 | PC.NURSE ---
Week 1. Comprehensive and temporary care plane reviewed. No changes, no added made. Vitals reviewed, no, concerns this time. Res needs extensive assist for bathing, dressing and grooming. Encourage to participate as able to using left hand. Able to set up sink an all supplies to brush her teeth. Pain: Res has Right side body pain d/t stroke. Current pain regime is effective. Scheduled tramadol 50mg BID and Lyrica 30mg BID. Res ate independently after set up only. No swallowing, no chewing issue.
--- NOTE | 2022-09-07 07:17 | PC.NURSE ---
Week #1-ADL'S: Comprehensive and temporary care plan reviewed. No changes made and nothing added to temporary care plan.Resident needs extensive assist of 1 with dressing, grooming and bathing. Encourage to participate as much as she is able. Does orals cares after set up. Staff complete as needed. Independent with feeding after set up. Is on regular diet, large portions per her request. No problems with chewing/swallowing reported. Vital signs reviewed, no concerns. Continue with weekly monitoring. Pain: Has chronic pain controlled with Lyrica 300mg BID, Ultram 50mg BID. Has no complain of pain the past months. She is able to verbalize need for pain.
[2022-09-07] MEDS: INSULIN GLARGINE,HUM.REC.ANLOG 100 UNIT/ML INSULN.PEN 22 UNIT SUBCUT (07:52)
[2022-09-07] MEDS: FLUOXETINE HCL 20 MG CAPSULE PO (07:52)
[2022-09-07] MEDS: FLUOXETINE HCL 40 MG CAPSULE PO (07:52)
[2022-09-07] MEDS: AMLODIPINE 10 MG TABLET PO (07:52)
[2022-09-07] MEDS: METOPROLOL TARTRATE 50 MG TABLET 62.5 MG PO ×2 (07:53→15:19)
[2022-09-07] MEDS: lisinopriL 40 MG TABLET PO (07:53)
[2022-09-07] MEDS: TRAMADOL HCL 50 MG TABLET PO ×2 (07:55→20:10)
[2022-09-07] MEDS: POTASSIUM CHLORIDE 20 MEQ TAB.ER.PRT 40 MEQ PO ×2 (07:55→15:19)
[2022-09-07] MEDS: BUSPIRONE 10 MG TABLET PO (08:53)
[2022-09-07 10:35] VITALS: TEMP 36.6; O2SAT 96
[2022-09-07 16:02] VITALS: TEMP 36.7; O2SAT 96
[2022-09-07] MEDS: BUSPIRONE 10 MG TABLET 5 MG PO (20:10)
[2022-09-07] MEDS: NYSTATIN POWDER 1 APPLIC TOPICAL (21:16)
[2022-09-08] MEDS: FLUOXETINE HCL 20 MG CAPSULE PO (07:09)
[2022-09-08] MEDS: AMLODIPINE 10 MG TABLET PO (07:09)
[2022-09-08] MEDS: FLUOXETINE HCL 40 MG CAPSULE PO (07:09)
[2022-09-08] MEDS: METOPROLOL TARTRATE 50 MG TABLET 62.5 MG PO ×2 (07:10→16:09)
[2022-09-08] MEDS: lisinopriL 40 MG TABLET PO (07:10)
[2022-09-08] MEDS: POTASSIUM CHLORIDE 20 MEQ TAB.ER.PRT 40 MEQ PO ×2 (07:11→16:10)
[2022-09-08] MEDS: TRAMADOL HCL 50 MG TABLET PO ×2 (07:15→19:05)
[2022-09-08] MEDS: INSULIN GLARGINE,HUM.REC.ANLOG 100 UNIT/ML INSULN.PEN 22 UNIT SUBCUT (07:20)
[2022-09-08] MEDS: BUSPIRONE 10 MG TABLET PO (09:14)
[2022-09-08 15:00] VITALS: TEMP 36.8; O2SAT 96
[2022-09-08] MEDS: BUSPIRONE 10 MG TABLET 5 MG PO (19:05)
[2022-09-09] MEDS: FLUOXETINE HCL 40 MG CAPSULE PO (07:54)
[2022-09-09] MEDS: METOPROLOL TARTRATE 50 MG TABLET 62.5 MG PO ×2 (07:54→15:55)
[2022-09-09] MEDS: FLUOXETINE HCL 20 MG CAPSULE PO (07:54)
[2022-09-09] MEDS: POTASSIUM CHLORIDE 20 MEQ TAB.ER.PRT 40 MEQ PO ×2 (07:54→15:55)
[2022-09-09] MEDS: AMLODIPINE 10 MG TABLET PO (07:54)
[2022-09-09] MEDS: lisinopriL 40 MG TABLET PO (07:54)
[2022-09-09] MEDS: TRAMADOL HCL 50 MG TABLET PO ×2 (07:55→20:14)
[2022-09-09] MEDS: INSULIN GLARGINE,HUM.REC.ANLOG 100 UNIT/ML INSULN.PEN 22 UNIT SUBCUT (08:40)
[2022-09-09] MEDS: BUSPIRONE 10 MG TABLET PO (09:19)
[2022-09-09 15:00] VITALS: TEMP 36.6; O2SAT 97
[2022-09-09] MEDS: BUSPIRONE 10 MG TABLET 5 MG PO (20:14)
[2022-09-10] MEDS: lisinopriL 40 MG TABLET PO (07:23)
[2022-09-10] MEDS: AMLODIPINE 10 MG TABLET PO (07:23)
[2022-09-10] MEDS: FLUOXETINE HCL 40 MG CAPSULE PO (07:23)
[2022-09-10] MEDS: METOPROLOL TARTRATE 50 MG TABLET 62.5 MG PO ×2 (07:23→15:42)
[2022-09-10] MEDS: FLUOXETINE HCL 20 MG CAPSULE PO (07:23)
[2022-09-10] MEDS: POTASSIUM CHLORIDE 20 MEQ TAB.ER.PRT 40 MEQ PO ×2 (07:26→15:42)
[2022-09-10] MEDS: TRAMADOL HCL 50 MG TABLET PO ×2 (07:26→19:53)
[2022-09-10] MEDS: INSULIN GLARGINE,HUM.REC.ANLOG 100 UNIT/ML INSULN.PEN 22 UNIT SUBCUT (07:28)
[2022-09-10] MEDS: BUSPIRONE 10 MG TABLET PO (09:05)
[2022-09-10 15:00] VITALS: TEMP 36.6; O2SAT 97
[2022-09-10] MEDS: BUSPIRONE 10 MG TABLET 5 MG PO (19:53)
[2022-09-11] MEDS: AMLODIPINE 10 MG TABLET PO (07:21)
[2022-09-11] MEDS: lisinopriL 40 MG TABLET PO (07:21)
[2022-09-11] MEDS: FLUOXETINE HCL 40 MG CAPSULE PO (07:21)
[2022-09-11] MEDS: FLUOXETINE HCL 20 MG CAPSULE PO (07:21)
[2022-09-11] MEDS: METOPROLOL TARTRATE 50 MG TABLET 62.5 MG PO ×2 (07:22→15:55)
[2022-09-11] MEDS: POTASSIUM CHLORIDE 20 MEQ TAB.ER.PRT 40 MEQ PO ×2 (07:23→15:55)
[2022-09-11] MEDS: TRAMADOL HCL 50 MG TABLET PO ×2 (07:26→19:44)
[2022-09-11] MEDS: INSULIN GLARGINE,HUM.REC.ANLOG 100 UNIT/ML INSULN.PEN 22 UNIT SUBCUT (07:33)
[2022-09-11] MEDS: BUSPIRONE 10 MG TABLET PO (08:01)
[2022-09-11 15:00] VITALS: TEMP 36.6; O2SAT 97
[2022-09-11] MEDS: BUSPIRONE 10 MG TABLET 5 MG PO (19:44)
[2022-09-12] MEDS: AMLODIPINE 10 MG TABLET PO (07:09)
[2022-09-12] MEDS: FLUOXETINE HCL 20 MG CAPSULE PO (07:09)
[2022-09-12] MEDS: lisinopriL 40 MG TABLET PO (07:09)
[2022-09-12] MEDS: POTASSIUM CHLORIDE 20 MEQ TAB.ER.PRT 40 MEQ PO ×2 (07:10→16:00)
[2022-09-12] MEDS: METOPROLOL TARTRATE 50 MG TABLET 62.5 MG PO ×2 (07:10→15:57)
[2022-09-12] MEDS: TRAMADOL HCL 50 MG TABLET PO ×2 (07:11→19:16)
[2022-09-12] MEDS: INSULIN GLARGINE,HUM.REC.ANLOG 100 UNIT/ML INSULN.PEN 22 UNIT SUBCUT (07:16)
[2022-09-12] MEDS: FLUOXETINE HCL 40 MG CAPSULE PO (07:17)
[2022-09-12] MEDS: BUSPIRONE 10 MG TABLET PO (08:43)
[2022-09-12 15:04] VITALS: TEMP 36.8; O2SAT 98
[2022-09-12] MEDS: BUSPIRONE 10 MG TABLET 5 MG PO (19:16)
[2022-09-12 20:52] VITALS: BP 157/76; PULSE 60; RESP 20; TEMP 36.8; O2SAT 98; BMI 31.8
[2022-09-13] MEDS: INSULIN GLARGINE,HUM.REC.ANLOG 100 UNIT/ML INSULN.PEN 22 UNIT SUBCUT (08:05)
[2022-09-13] MEDS: lisinopriL 40 MG TABLET PO (08:05)
[2022-09-13] MEDS: FLUOXETINE HCL 20 MG CAPSULE PO (08:05)
[2022-09-13] MEDS: FLUOXETINE HCL 40 MG CAPSULE PO (08:05)
[2022-09-13] MEDS: AMLODIPINE 10 MG TABLET PO (08:05)
[2022-09-13] MEDS: METOPROLOL TARTRATE 50 MG TABLET 62.5 MG PO ×2 (08:05→15:12)
[2022-09-13] MEDS: POTASSIUM CHLORIDE 20 MEQ TAB.ER.PRT 40 MEQ PO ×2 (08:06→15:12)
[2022-09-13] MEDS: BUSPIRONE 10 MG TABLET PO (08:06)
[2022-09-13] MEDS: TRAMADOL HCL 50 MG TABLET PO ×2 (08:06→19:43)
--- NOTE | 2022-09-13 09:15 | PC.PHA1 ---
BATH TESTER PHARMACIST'S MEDICATION REVIEW: MEDICATION MONITORING:Fluoxetine 40 mg and 20 mg daily on AUG (60 mg total) for depression and forms of outburst.? Buspar 10 mg qam and 5 mg hs started since last review and this is her current GDR in process. IRREGULARITY OR COMMENTS:Patient doing well, agree with family's request to stop a few of her medications since my last review (meds listed in nursing note). SUGGESTED COURSE OF ACTION TAKEN: Buspar dose reduction last done 07/24, is patient ready for 5 mg bid?
[2022-09-13 15:00] VITALS: TEMP 36.2; O2SAT 96
[2022-09-13] MEDS: BUSPIRONE 10 MG TABLET 5 MG PO (19:43)
--- NOTE | 2022-09-14 01:02 | PC.NURSE ---
WEEKLY CHARTING - WEEK 2: Vital signs reviewed - no concerns. Temporary and comprehensive care plan reviewed - no change. EZ stand with assist of 1 for all transfers. Non-ambulatory. Assist of 1-2 with bed mobility. Total dependence for w/c mobility. Per latest fall risk assessment, is at high risk for falls. Fall interventions: gripper socks for all transfers, bed in low position with brakes locked, call light in reach, falling star magnet.
[2022-09-14] MEDS: NYSTATIN POWDER 1 APPLIC TOPICAL (07:13)
[2022-09-14] MEDS: FLUOXETINE HCL 20 MG CAPSULE PO (07:20)
[2022-09-14] MEDS: FLUOXETINE HCL 40 MG CAPSULE PO (07:20)
[2022-09-14] MEDS: AMLODIPINE 10 MG TABLET PO (07:20)
[2022-09-14] MEDS: lisinopriL 40 MG TABLET PO (07:20)
--- NOTE | 2022-09-14 07:20 | PC.NURSE ---
Week #2 - MOBILITY: Comprehensive and temporary care plan reviewed. No changes made, nothing added to temporary care plan. Resident is non ambulatory. One assist, medi stand for all transfers. Staff propel to all destinations. Staff assist with bed positioning. No alarms. Vital signs reviewed, No concerns. Continue weekly monitoring. Fall: No falls the past month. Remains a high fall risk according to assessment done on 07/27/22. Fall interventions: call light within reach, bed in low position with brakes locked. gripper socks for all transfers, falling star magnet.
[2022-09-14] MEDS: POTASSIUM CHLORIDE 20 MEQ TAB.ER.PRT 40 MEQ PO ×2 (07:21→16:11)
[2022-09-14] MEDS: METOPROLOL TARTRATE 50 MG TABLET 62.5 MG PO ×2 (07:21→16:11)
[2022-09-14] MEDS: TRAMADOL HCL 50 MG TABLET PO ×2 (07:24→19:17)
[2022-09-14] MEDS: INSULIN GLARGINE,HUM.REC.ANLOG 100 UNIT/ML INSULN.PEN 22 UNIT SUBCUT (07:30)
[2022-09-14] MEDS: BUSPIRONE 10 MG TABLET PO (08:08)
[2022-09-14 15:00] VITALS: TEMP 36.6; O2SAT 96
[2022-09-14] MEDS: BUSPIRONE 10 MG TABLET 5 MG PO (19:16)
[2022-09-14 23:52] VITALS: TEMP 36.8; O2SAT 93
[2022-09-15] MEDS: AMLODIPINE 10 MG TABLET PO (07:52)
[2022-09-15] MEDS: FLUOXETINE HCL 20 MG CAPSULE PO (07:53)
[2022-09-15] MEDS: lisinopriL 40 MG TABLET PO (07:53)
[2022-09-15] MEDS: INSULIN GLARGINE,HUM.REC.ANLOG 100 UNIT/ML INSULN.PEN 22 UNIT SUBCUT (07:53)
[2022-09-15] MEDS: FLUOXETINE HCL 40 MG CAPSULE PO (07:53)
[2022-09-15] MEDS: METOPROLOL TARTRATE 50 MG TABLET 62.5 MG PO ×2 (07:53→15:24)
[2022-09-15] MEDS: POTASSIUM CHLORIDE 20 MEQ TAB.ER.PRT 40 MEQ PO ×2 (07:54→15:28)
[2022-09-15] MEDS: TRAMADOL HCL 50 MG TABLET PO ×2 (07:54→19:49)
[2022-09-15] MEDS: BUSPIRONE 10 MG TABLET PO (08:40)
[2022-09-15 10:39] VITALS: TEMP 36.6; O2SAT 95
[2022-09-15 15:00] VITALS: TEMP 36.1; O2SAT 96
[2022-09-15] MEDS: BUSPIRONE 10 MG TABLET 5 MG PO (19:49)
[2022-09-16 00:29] VITALS: TEMP 36.6; O2SAT 94
[2022-09-16] MEDS: FLUOXETINE HCL 40 MG CAPSULE PO (07:38)
[2022-09-16] MEDS: FLUOXETINE HCL 20 MG CAPSULE PO (07:38)
[2022-09-16] MEDS: AMLODIPINE 10 MG TABLET PO (07:38)
[2022-09-16] MEDS: lisinopriL 40 MG TABLET PO (07:39)
[2022-09-16] MEDS: METOPROLOL TARTRATE 50 MG TABLET 62.5 MG PO ×2 (07:39→15:03)
[2022-09-16] MEDS: TRAMADOL HCL 50 MG TABLET PO ×2 (07:40→20:01)
[2022-09-16] MEDS: POTASSIUM CHLORIDE 20 MEQ TAB.ER.PRT 40 MEQ PO ×2 (07:40→15:03)
[2022-09-16] MEDS: INSULIN GLARGINE,HUM.REC.ANLOG 100 UNIT/ML INSULN.PEN 22 UNIT SUBCUT (07:55)
[2022-09-16] MEDS: BUSPIRONE 10 MG TABLET PO (08:40)
[2022-09-16 10:54] VITALS: TEMP 36.8; O2SAT 97
[2022-09-16 15:00] VITALS: TEMP 36.6; O2SAT 98
[2022-09-16] MEDS: BUSPIRONE 10 MG TABLET 5 MG PO (20:01)
[2022-09-17 00:13] VITALS: TEMP 36.4; O2SAT 94
[2022-09-17] MEDS: FLUOXETINE HCL 40 MG CAPSULE PO (08:40)
[2022-09-17] MEDS: FLUOXETINE HCL 20 MG CAPSULE PO (08:40)
[2022-09-17] MEDS: AMLODIPINE 10 MG TABLET PO (08:40)
[2022-09-17] MEDS: INSULIN GLARGINE,HUM.REC.ANLOG 100 UNIT/ML INSULN.PEN 22 UNIT SUBCUT (08:40)
[2022-09-17] MEDS: lisinopriL 40 MG TABLET PO (08:40)
[2022-09-17] MEDS: POTASSIUM CHLORIDE 20 MEQ TAB.ER.PRT 40 MEQ PO ×2 (08:41→15:11)
[2022-09-17] MEDS: BUSPIRONE 10 MG TABLET PO (08:41)
[2022-09-17] MEDS: METOPROLOL TARTRATE 50 MG TABLET 62.5 MG PO ×2 (08:41→15:11)
[2022-09-17] MEDS: TRAMADOL HCL 50 MG TABLET PO ×2 (08:41→20:17)
[2022-09-17 10:58] VITALS: TEMP 37; O2SAT 98
[2022-09-17 15:00] VITALS: TEMP 36.6; O2SAT 95
[2022-09-17] MEDS: BUSPIRONE 10 MG TABLET 5 MG PO (20:17)
--- NOTE | 2022-09-17 22:33 | PC.NURSE ---
Hallucination: Resident placed call light with c/o there is a girl walking over there in my room Inside Sales Account Representative asked if the girl was one of the staff members and she said no. Asked if resident was fearful of seeing this girl and replied no. Inside Sales Account Representative reassured resident that no one is in the building other than the other staff members.
[2022-09-17 23:55] VITALS: TEMP 36.7; O2SAT 95
[2022-09-18] MEDS: FLUOXETINE HCL 20 MG CAPSULE PO (07:47)
[2022-09-18] MEDS: FLUOXETINE HCL 40 MG CAPSULE PO (07:47)
[2022-09-18] MEDS: lisinopriL 40 MG TABLET PO (07:47)
[2022-09-18] MEDS: AMLODIPINE 10 MG TABLET PO (07:47)
[2022-09-18] MEDS: METOPROLOL TARTRATE 50 MG TABLET 62.5 MG PO ×2 (07:47→15:41)
[2022-09-18] MEDS: POTASSIUM CHLORIDE 20 MEQ TAB.ER.PRT 40 MEQ PO ×2 (07:48→15:41)
[2022-09-18] MEDS: TRAMADOL HCL 50 MG TABLET PO ×2 (07:49→19:21)
[2022-09-18] MEDS: INSULIN GLARGINE,HUM.REC.ANLOG 100 UNIT/ML INSULN.PEN 22 UNIT SUBCUT (07:58)
[2022-09-18] MEDS: BUSPIRONE 10 MG TABLET PO (09:49)
[2022-09-18 10:29] VITALS: TEMP 36.2; O2SAT 94
[2022-09-18 12:31] LABS: SARS PCR* Negative SARS-CoV-2 (Negative)
[2022-09-18 16:41] VITALS: TEMP 36.6; O2SAT 97
[2022-09-18] MEDS: BUSPIRONE 10 MG TABLET 5 MG PO (19:21)
[2022-09-19 00:04] VITALS: TEMP 36.6; O2SAT 93
[2022-09-19] MEDS: TRAMADOL HCL 50 MG TABLET PO (07:25)
[2022-09-19] MEDS: POTASSIUM CHLORIDE 20 MEQ TAB.ER.PRT 40 MEQ PO ×2 (07:25→16:10)
[2022-09-19] MEDS: INSULIN GLARGINE,HUM.REC.ANLOG 100 UNIT/ML INSULN.PEN 22 UNIT SUBCUT (07:25)
[2022-09-19] MEDS: METOPROLOL TARTRATE 50 MG TABLET 62.5 MG PO ×2 (07:25→16:10)
[2022-09-19] MEDS: lisinopriL 40 MG TABLET PO (07:25)
[2022-09-19] MEDS: AMLODIPINE 10 MG TABLET PO (07:25)
[2022-09-19] MEDS: FLUOXETINE HCL 40 MG CAPSULE PO (07:25)
[2022-09-19] MEDS: FLUOXETINE HCL 20 MG CAPSULE PO (07:25)
[2022-09-19 07:37] LABS: Chloride* 106 mmol/L (96-114); Potassium* 3.9 mmol/L (3.6-5.1); Sodium* 135 mmol/L (135-149)
[2022-09-19 07:39] LABS: Creatinine* 0.5 mg/dL (0.5-1.5); Est. Creatinine Clearance* 35.26; Estimated Glomerular Filt Rate 93 ml/min
[2022-09-19 07:40] LABS: Blood Urea Nitrogen* 11 mg/dL (7-30); Calcium* 8.6 mg/dL (8.4-10.6); Carbon Dioxide* 24 mmol/L (20-32); Glucose* 136 mg/dL (60-115)
[2022-09-19] MEDS: BUSPIRONE 10 MG TABLET PO (08:36)
[2022-09-19 10:17] VITALS: TEMP 36.4; O2SAT 97
--- NOTE | 2022-09-19 10:42 | PC.NURSE ---
Order: Artemio FLAHERTY here.Tramadol 50 mg BID changed to daily.
--- NOTE | 2022-09-19 13:11 | PC.NURSE ---
BMP: Result reviewed by Artemio FLAHERTY. No new order.
--- NOTE | 2022-09-19 13:57 | PC.NURSE ---
Resident had 2 episode of loose stool L/A. Staff to monitor and report if she has again. She refuse to allow staff to change her catheter, staff will try to do tomorrow.
[2022-09-19 15:00] VITALS: BP 145/79; PULSE 71; PULSE 78; RESP 18; TEMP 36.6; O2SAT 97
[2022-09-19] MEDS: BUSPIRONE 10 MG TABLET 5 MG PO (19:07)
[2022-09-19 23:00] VITALS: TEMP 36.4; O2SAT 95
[2022-09-20] MEDS: AMLODIPINE 10 MG TABLET PO (07:37)
[2022-09-20] MEDS: INSULIN GLARGINE,HUM.REC.ANLOG 100 UNIT/ML INSULN.PEN 22 UNIT SUBCUT (07:38)
[2022-09-20] MEDS: FLUOXETINE HCL 40 MG CAPSULE PO (07:39)
[2022-09-20] MEDS: POTASSIUM CHLORIDE 20 MEQ TAB.ER.PRT 40 MEQ PO ×2 (07:39→15:42)
[2022-09-20] MEDS: lisinopriL 40 MG TABLET PO (07:39)
[2022-09-20] MEDS: TRAMADOL HCL 50 MG TABLET PO (07:39)
[2022-09-20] MEDS: METOPROLOL TARTRATE 50 MG TABLET 62.5 MG PO ×2 (07:39→15:41)
[2022-09-20] MEDS: FLUOXETINE HCL 20 MG CAPSULE PO (07:39)
[2022-09-20] MEDS: BUSPIRONE 10 MG TABLET PO (08:04)
[2022-09-20 10:39] VITALS: TEMP 36.4; O2SAT 96
[2022-09-20 15:00] VITALS: TEMP 36.7; O2SAT 96
--- NOTE | 2022-09-20 16:18 | PC.SPIRITC ---
I provided visit for connection and support.
[2022-09-20] MEDS: BUSPIRONE 10 MG TABLET 5 MG PO (19:29)
[2022-09-20 22:21] VITALS: BMI 32.5
[2022-09-20 23:00] VITALS: TEMP 36.6; O2SAT 96
--- NOTE | 2022-09-21 07:24 | PC.NURSE ---
Week #3-Toileting: Comprehensive and temporary care plan reviewed. No changes made. Nothing added to temporary care plan. Resident is usually continent of BM'S and has occasional incontinence. Has a suprapubic catheter connected to the leg bag during the day, emptied by staff. Catheter changed monthly and irrigated by staff every Sunday. Leg and catheter bags changed every 14 days. Resident will call for BM. Uses a medi stand for transfers with one assist. Wears briefs. Pads, edward cares, clothing managed by staff. Vital signs reviewed, BP's varies and is noted by COMPENSATION/BENEFITS SPECIALIST. Continue weekly monitoring & refer as needed. Skin: Has chronic bilateral edema. Wears teds on-am, off-hs. Encourage lower extremities elevation. Suprapubic site cleansed BID with warm, soapy water and covered with dry gauze. Using medicated shampoo for dry scalp.Skin is checked during cares and on bath day.
[2022-09-21] MEDS: TRAMADOL HCL 50 MG TABLET PO (08:13)
[2022-09-21] MEDS: INSULIN GLARGINE,HUM.REC.ANLOG 100 UNIT/ML INSULN.PEN 22 UNIT SUBCUT (08:14)
[2022-09-21] MEDS: AMLODIPINE 10 MG TABLET PO (08:14)
[2022-09-21] MEDS: METOPROLOL TARTRATE 50 MG TABLET 62.5 MG PO ×2 (08:15→15:51)
[2022-09-21] MEDS: FLUOXETINE HCL 40 MG CAPSULE PO (08:15)
[2022-09-21] MEDS: FLUOXETINE HCL 20 MG CAPSULE PO (08:15)
[2022-09-21] MEDS: lisinopriL 40 MG TABLET PO (08:15)
[2022-09-21] MEDS: POTASSIUM CHLORIDE 20 MEQ TAB.ER.PRT 40 MEQ PO ×2 (08:16→15:52)
[2022-09-21] MEDS: BUSPIRONE 10 MG TABLET PO ×2 (08:16→20:10)
--- NOTE | 2022-09-21 09:42 | PC.SPIRITC ---
I provided visit for support and connection.
[2022-09-21 10:08] VITALS: TEMP 36.3; O2SAT 96
--- NOTE | 2022-09-21 12:01 | PC.NURSE ---
Status/Order: MANUFACTURING ENGINEER AUTOMOTIVE here, updated resident having some hallucination. Order: Change Buspar to 10mg BID @ .
[2022-09-21 15:00] VITALS: TEMP 36.2; O2SAT 96
[2022-09-21 23:00] VITALS: TEMP 37.1; O2SAT 96
[2022-09-22] MEDS: AMLODIPINE 10 MG TABLET PO (07:24)
[2022-09-22] MEDS: TRAMADOL HCL 50 MG TABLET PO (07:25)
[2022-09-22] MEDS: FLUOXETINE HCL 20 MG CAPSULE PO (07:25)
[2022-09-22] MEDS: lisinopriL 40 MG TABLET PO (07:25)
[2022-09-22] MEDS: FLUOXETINE HCL 40 MG CAPSULE PO (07:25)
[2022-09-22] MEDS: INSULIN GLARGINE,HUM.REC.ANLOG 100 UNIT/ML INSULN.PEN 22 UNIT SUBCUT (07:25)
[2022-09-22] MEDS: METOPROLOL TARTRATE 50 MG TABLET 62.5 MG PO ×2 (07:25→16:03)
[2022-09-22] MEDS: POTASSIUM CHLORIDE 20 MEQ TAB.ER.PRT 40 MEQ PO ×2 (07:25→16:03)
[2022-09-22] MEDS: BUSPIRONE 10 MG TABLET PO ×2 (07:25→19:40)
[2022-09-22 10:21] VITALS: TEMP 36.4; O2SAT 96
[2022-09-22 15:00] VITALS: TEMP 36.7; O2SAT 96
[2022-09-22 23:00] VITALS: TEMP 36.8; O2SAT 94
[2022-09-23 07:00] VITALS: TEMP 36.8; O2SAT 95
[2022-09-23] MEDS: AMLODIPINE 10 MG TABLET PO (07:32)
[2022-09-23] MEDS: FLUOXETINE HCL 40 MG CAPSULE PO (07:33)
[2022-09-23] MEDS: FLUOXETINE HCL 20 MG CAPSULE PO (07:33)
[2022-09-23] MEDS: lisinopriL 40 MG TABLET PO (07:33)
[2022-09-23] MEDS: BUSPIRONE 10 MG TABLET PO ×2 (07:33→19:43)
[2022-09-23] MEDS: METOPROLOL TARTRATE 50 MG TABLET 62.5 MG PO ×2 (07:34→16:06)
[2022-09-23] MEDS: POTASSIUM CHLORIDE 20 MEQ TAB.ER.PRT 40 MEQ PO ×2 (07:36→16:06)
[2022-09-23] MEDS: TRAMADOL HCL 50 MG TABLET PO (07:40)
[2022-09-23] MEDS: INSULIN GLARGINE,HUM.REC.ANLOG 100 UNIT/ML INSULN.PEN 22 UNIT SUBCUT (07:46)
--- NOTE | 2022-09-23 09:41 | PC.NURSE ---
ANISH reported resident had one XL bowel movement yesterday. Therefore, res does not need extra bowel intervention at this time.
[2022-09-23 15:00] VITALS: TEMP 36.5; O2SAT 97
[2022-09-23 23:00] VITALS: TEMP 36.8; O2SAT 97
[2022-09-24 06:38] VITALS: TEMP 36.9; O2SAT 96
[2022-09-24] MEDS: AMLODIPINE 10 MG TABLET PO (07:28)
[2022-09-24] MEDS: BUSPIRONE 10 MG TABLET PO ×2 (07:28→20:57)
[2022-09-24] MEDS: FLUOXETINE HCL 40 MG CAPSULE PO (07:28)
[2022-09-24] MEDS: lisinopriL 40 MG TABLET PO (07:29)
[2022-09-24] MEDS: FLUOXETINE HCL 20 MG CAPSULE PO (07:29)
[2022-09-24] MEDS: METOPROLOL TARTRATE 50 MG TABLET 62.5 MG PO ×2 (07:29→16:02)
[2022-09-24] MEDS: POTASSIUM CHLORIDE 20 MEQ TAB.ER.PRT 40 MEQ PO ×2 (07:30→16:02)
[2022-09-24] MEDS: TRAMADOL HCL 50 MG TABLET PO (07:33)
[2022-09-24] MEDS: INSULIN GLARGINE,HUM.REC.ANLOG 100 UNIT/ML INSULN.PEN 22 UNIT SUBCUT (07:38)
[2022-09-24 15:00] VITALS: TEMP 36.9; O2SAT 97
[2022-09-24 23:00] VITALS: TEMP 36.9; O2SAT 93
[2022-09-25] MEDS: FLUOXETINE HCL 40 MG CAPSULE PO (07:44)
[2022-09-25] MEDS: BUSPIRONE 10 MG TABLET PO ×2 (07:44→20:22)
[2022-09-25] MEDS: INSULIN GLARGINE,HUM.REC.ANLOG 100 UNIT/ML INSULN.PEN 22 UNIT SUBCUT (07:44)
[2022-09-25] MEDS: AMLODIPINE 10 MG TABLET PO (07:44)
[2022-09-25] MEDS: lisinopriL 40 MG TABLET PO (07:45)
[2022-09-25] MEDS: METOPROLOL TARTRATE 50 MG TABLET 62.5 MG PO ×2 (07:45→16:04)
[2022-09-25] MEDS: FLUOXETINE HCL 20 MG CAPSULE PO (07:45)
[2022-09-25] MEDS: POTASSIUM CHLORIDE 20 MEQ TAB.ER.PRT 40 MEQ PO ×2 (07:46→16:04)
[2022-09-25] MEDS: TRAMADOL HCL 50 MG TABLET PO (07:46)
[2022-09-25 10:33] VITALS: TEMP 36.7; O2SAT 98
[2022-09-25 12:41] LABS: SARS PCR* Negative SARS-CoV-2 (Negative)
[2022-09-25 15:48] VITALS: TEMP 36.7; O2SAT 97
[2022-09-25 23:00] VITALS: TEMP 36.7; O2SAT 96
[2022-09-26] MEDS: INSULIN GLARGINE,HUM.REC.ANLOG 100 UNIT/ML INSULN.PEN 22 UNIT SUBCUT (07:38)
[2022-09-26] MEDS: AMLODIPINE 10 MG TABLET PO (07:38)
[2022-09-26] MEDS: POTASSIUM CHLORIDE 20 MEQ TAB.ER.PRT 40 MEQ PO ×2 (07:39→15:39)
[2022-09-26] MEDS: BUSPIRONE 10 MG TABLET PO ×2 (07:39→20:00)
[2022-09-26] MEDS: TRAMADOL HCL 50 MG TABLET PO (07:39)
[2022-09-26] MEDS: FLUOXETINE HCL 20 MG CAPSULE PO (07:39)
[2022-09-26] MEDS: FLUOXETINE HCL 40 MG CAPSULE PO (07:39)
[2022-09-26] MEDS: METOPROLOL TARTRATE 50 MG TABLET 62.5 MG PO ×2 (07:39→15:38)
[2022-09-26] MEDS: lisinopriL 40 MG TABLET PO (07:39)
[2022-09-26 10:30] VITALS: TEMP 36.4; O2SAT 96
[2022-09-26 16:15] VITALS: BP 142/75; PULSE 60; RESP 18; TEMP 36.6; O2SAT 96
[2022-09-26 20:00] VITALS: BMI 28.6
[2022-09-26 21:34] VITALS: BMI 32.1
[2022-09-26 23:00] VITALS: TEMP 36.4; O2SAT 92
[2022-09-27] MEDS: AMLODIPINE 10 MG TABLET PO (07:54)
[2022-09-27] MEDS: INSULIN GLARGINE,HUM.REC.ANLOG 100 UNIT/ML INSULN.PEN 22 UNIT SUBCUT (07:54)
[2022-09-27] MEDS: BUSPIRONE 10 MG TABLET PO ×2 (07:55→20:52)
[2022-09-27] MEDS: METOPROLOL TARTRATE 50 MG TABLET 62.5 MG PO ×2 (07:55→15:24)
[2022-09-27] MEDS: TRAMADOL HCL 50 MG TABLET PO (07:55)
[2022-09-27] MEDS: FLUOXETINE HCL 40 MG CAPSULE PO (07:55)
[2022-09-27] MEDS: lisinopriL 40 MG TABLET PO (07:55)
[2022-09-27] MEDS: POTASSIUM CHLORIDE 20 MEQ TAB.ER.PRT 40 MEQ PO ×2 (07:55→15:24)
[2022-09-27] MEDS: FLUOXETINE HCL 20 MG CAPSULE PO (07:55)
[2022-09-27 08:20] VITALS: TEMP 36.9; O2SAT 94
[2022-09-27 15:00] VITALS: TEMP 36.6; O2SAT 96
[2022-09-27 23:00] VITALS: TEMP 36.7; O2SAT 94
--- NOTE | 2022-09-28 03:25 | PC.NURSE ---
WEEKLY CHARTING - WEEK 4: Vital signs reviewed - no concerns. Temporary and comprehensive care plan reviewed - no change. One documented behavior in the last month. Receives fluoxetine 60mg daily and buspirone 10mg BID, which was increased on 09/21, with no noted adverse effects. Able to communicate needs. Staff also anticipate needs. Hears adequately. Visual impairment r/t macular degeneration. All medications administered by licensed nurse. Health condition stable at this time.
[2022-09-28] MEDS: AMLODIPINE 10 MG TABLET PO (07:43)
[2022-09-28] MEDS: BUSPIRONE 10 MG TABLET PO ×2 (07:43→19:58)
[2022-09-28] MEDS: INSULIN GLARGINE,HUM.REC.ANLOG 100 UNIT/ML INSULN.PEN 22 UNIT SUBCUT (07:43)
[2022-09-28] MEDS: FLUOXETINE HCL 40 MG CAPSULE PO (07:43)
[2022-09-28] MEDS: FLUOXETINE HCL 20 MG CAPSULE PO (07:44)
[2022-09-28] MEDS: METOPROLOL TARTRATE 50 MG TABLET 62.5 MG PO ×2 (07:45→15:47)
[2022-09-28] MEDS: lisinopriL 40 MG TABLET PO (07:45)
[2022-09-28] MEDS: POTASSIUM CHLORIDE 20 MEQ TAB.ER.PRT 40 MEQ PO ×2 (07:45→15:47)
[2022-09-28] MEDS: TRAMADOL HCL 50 MG TABLET PO (07:45)
[2022-09-28 08:59] VITALS: TEMP 36.3; O2SAT 95
--- NOTE | 2022-09-28 09:20 | PC.SPIRITC ---
Addendum entered by Haily Lee 09/28/22 09:22: Late entry from September 27, 2022. Original Note: Shaista said she was having a bad day because a friend was supposed to pick me up and never came. I provided some support and redirection and technical help with the TV.
[2022-09-28] MEDS: NYSTATIN POWDER 1 APPLIC TOPICAL ×2 (09:58→21:36)
--- NOTE | 2022-09-28 10:57 | PC.NURSE ---
Skin care: Resident was red under her folds and breast. Nystatin powder was applied on both areas and added in the intervention.
--- NOTE | 2022-09-28 12:42 | PC.NURSE ---
WEEKLY CHARTING - WEEK 4: Vital signs reviewed - With no new concerns documented in the past 4 weeks. Temporary reviewed with no changes. Comprehensive care plan reviewed - no new change.. Resident on scheduled fluoxetine 60mg daily and buspirone 10mg BID, Med dose was increased on 09/21, with no adverse effects documented the past month. Resident able to communicate verbally with her needs as staff anticipate needs. Able to hear adequately, Visual impairment r/t macular degeneration. Resident health status stable at this time. All medications administered by licensed nurse.
[2022-09-28 15:00] VITALS: TEMP 36.6; O2SAT 97
[2022-09-28 23:00] VITALS: TEMP 37.1; O2SAT 96
[2022-09-29] MEDS: NYSTATIN POWDER 1 APPLIC TOPICAL (07:20)
[2022-09-29] MEDS: BUSPIRONE 10 MG TABLET PO ×2 (07:59→20:42)
[2022-09-29] MEDS: AMLODIPINE 10 MG TABLET PO (07:59)
[2022-09-29] MEDS: FLUOXETINE HCL 40 MG CAPSULE PO (07:59)
[2022-09-29] MEDS: INSULIN GLARGINE,HUM.REC.ANLOG 100 UNIT/ML INSULN.PEN 22 UNIT SUBCUT (07:59)
[2022-09-29] MEDS: FLUOXETINE HCL 20 MG CAPSULE PO (07:59)
[2022-09-29] MEDS: lisinopriL 40 MG TABLET PO (08:00)
[2022-09-29] MEDS: METOPROLOL TARTRATE 50 MG TABLET 62.5 MG PO ×2 (08:00→16:43)
[2022-09-29] MEDS: POTASSIUM CHLORIDE 20 MEQ TAB.ER.PRT 40 MEQ PO ×2 (08:01→16:43)
[2022-09-29] MEDS: TRAMADOL HCL 50 MG TABLET PO (08:01)
[2022-09-29 10:25] VITALS: TEMP 36.6; O2SAT 96
[2022-09-29 15:00] VITALS: TEMP 36.2; O2SAT 96
[2022-09-29 23:51] VITALS: TEMP 36.7; O2SAT 94
[2022-09-30] MEDS: FLUOXETINE HCL 20 MG CAPSULE PO (07:58)
[2022-09-30] MEDS: BUSPIRONE 10 MG TABLET PO ×2 (07:58→19:22)
[2022-09-30] MEDS: AMLODIPINE 10 MG TABLET PO (07:58)
[2022-09-30] MEDS: FLUOXETINE HCL 40 MG CAPSULE PO (07:58)
[2022-09-30] MEDS: INSULIN GLARGINE,HUM.REC.ANLOG 100 UNIT/ML INSULN.PEN 22 UNIT SUBCUT (07:58)
[2022-09-30] MEDS: lisinopriL 40 MG TABLET PO (07:58)
[2022-09-30] MEDS: TRAMADOL HCL 50 MG TABLET PO (07:59)
[2022-09-30] MEDS: POTASSIUM CHLORIDE 20 MEQ TAB.ER.PRT 40 MEQ PO ×2 (07:59→15:23)
[2022-09-30] MEDS: METOPROLOL TARTRATE 50 MG TABLET 62.5 MG PO ×2 (07:59→15:23)
[2022-09-30 10:21] VITALS: TEMP 36.4; O2SAT 96
[2022-09-30 15:00] VITALS: TEMP 36.6; O2SAT 95
[2022-10-01 00:10] VITALS: TEMP 36.4; O2SAT 94
[2022-10-01] MEDS: INSULIN GLARGINE,HUM.REC.ANLOG 100 UNIT/ML INSULN.PEN 22 UNIT SUBCUT (07:56)
[2022-10-01] MEDS: AMLODIPINE 10 MG TABLET PO (07:56)
[2022-10-01] MEDS: FLUOXETINE HCL 40 MG CAPSULE PO (07:57)
[2022-10-01] MEDS: lisinopriL 40 MG TABLET PO (07:57)
[2022-10-01] MEDS: FLUOXETINE HCL 20 MG CAPSULE PO (07:57)
[2022-10-01] MEDS: BUSPIRONE 10 MG TABLET PO ×2 (07:57→19:27)
[2022-10-01] MEDS: METOPROLOL TARTRATE 50 MG TABLET 62.5 MG PO ×2 (07:57→15:25)
[2022-10-01] MEDS: TRAMADOL HCL 50 MG TABLET PO (07:58)
[2022-10-01] MEDS: POTASSIUM CHLORIDE 20 MEQ TAB.ER.PRT 40 MEQ PO ×2 (07:58→15:26)
[2022-10-01] MEDS: NYSTATIN POWDER 1 APPLIC TOPICAL ×2 (10:09→22:02)
[2022-10-01 15:00] VITALS: TEMP 36.3; O2SAT 96
[2022-10-01 23:50] VITALS: TEMP 36.4; O2SAT 94
[2022-10-02 07:00] VITALS: TEMP 37.1; O2SAT 96
[2022-10-02] MEDS: AMLODIPINE 10 MG TABLET PO (07:14)
[2022-10-02] MEDS: BUSPIRONE 10 MG TABLET PO ×2 (07:14→19:57)
[2022-10-02] MEDS: FLUOXETINE HCL 40 MG CAPSULE PO (07:14)
[2022-10-02] MEDS: FLUOXETINE HCL 20 MG CAPSULE PO (07:15)
[2022-10-02] MEDS: lisinopriL 40 MG TABLET PO (07:15)
[2022-10-02] MEDS: METOPROLOL TARTRATE 50 MG TABLET 62.5 MG PO ×2 (07:15→16:05)
[2022-10-02] MEDS: POTASSIUM CHLORIDE 20 MEQ TAB.ER.PRT 40 MEQ PO ×2 (07:16→16:06)
[2022-10-02] MEDS: TRAMADOL HCL 50 MG TABLET PO (07:18)
[2022-10-02] MEDS: INSULIN GLARGINE,HUM.REC.ANLOG 100 UNIT/ML INSULN.PEN 22 UNIT SUBCUT (07:25)
--- NOTE | 2022-10-02 10:57 | PC.NURSE ---
COVID OUTBREAK TESTING Resident and residents gave verbal consent for outbreak COVID testing. Resident is currently asymptomatic.? Resident/family will be notified only if resident is positive.
[2022-10-02 13:34] LABS: SARS PCR* Negative SARS-CoV-2 (Negative)
[2022-10-02 15:00] VITALS: TEMP 36.5; O2SAT 98
[2022-10-03 01:25] VITALS: TEMP 36.6; O2SAT 96
[2022-10-03] MEDS: NYSTATIN POWDER 1 APPLIC TOPICAL (07:20)
[2022-10-03] MEDS: INSULIN GLARGINE,HUM.REC.ANLOG 100 UNIT/ML INSULN.PEN 22 UNIT SUBCUT (08:19)
[2022-10-03] MEDS: AMLODIPINE 10 MG TABLET PO (08:19)
[2022-10-03] MEDS: FLUOXETINE HCL 40 MG CAPSULE PO (08:20)
[2022-10-03] MEDS: lisinopriL 40 MG TABLET PO (08:20)
[2022-10-03] MEDS: BUSPIRONE 10 MG TABLET PO ×2 (08:20→20:11)
[2022-10-03] MEDS: METOPROLOL TARTRATE 50 MG TABLET 62.5 MG PO ×2 (08:20→16:38)
[2022-10-03] MEDS: FLUOXETINE HCL 20 MG CAPSULE PO (08:20)
[2022-10-03] MEDS: TRAMADOL HCL 50 MG TABLET PO (08:21)
[2022-10-03] MEDS: POTASSIUM CHLORIDE 20 MEQ TAB.ER.PRT 40 MEQ PO ×2 (08:21→16:41)
[2022-10-03 10:20] VITALS: TEMP 36.6; O2SAT 96
[2022-10-03 15:00] VITALS: BP 128/67; PULSE 68; RESP 18; TEMP 36.4; O2SAT 93
[2022-10-03 22:31] VITALS: BMI 32.2
[2022-10-03 23:00] VITALS: TEMP 36.7; O2SAT 97
[2022-10-04] MEDS: BUSPIRONE 10 MG TABLET PO ×2 (07:27→20:09)
[2022-10-04] MEDS: METOPROLOL TARTRATE 50 MG TABLET 62.5 MG PO ×2 (07:27→15:58)
[2022-10-04] MEDS: FLUOXETINE HCL 20 MG CAPSULE PO (07:27)
[2022-10-04] MEDS: FLUOXETINE HCL 40 MG CAPSULE PO (07:27)
[2022-10-04] MEDS: lisinopriL 40 MG TABLET PO (07:27)
[2022-10-04] MEDS: AMLODIPINE 10 MG TABLET PO (07:27)
[2022-10-04] MEDS: INSULIN GLARGINE,HUM.REC.ANLOG 100 UNIT/ML INSULN.PEN 22 UNIT SUBCUT (07:27)
[2022-10-04] MEDS: TRAMADOL HCL 50 MG TABLET PO (07:28)
[2022-10-04] MEDS: POTASSIUM CHLORIDE 20 MEQ TAB.ER.PRT 40 MEQ PO ×2 (07:28→15:59)
[2022-10-04 10:01] VITALS: TEMP 36.9; O2SAT 96
--- NOTE | 2022-10-04 14:04 | PC.NURSE ---
Skin care: Resident`s skin under the breast and abdo folder is no longer red and the intervention was completed.
[2022-10-04 15:00] VITALS: TEMP 36.4; O2SAT 98
[2022-10-04 23:00] VITALS: TEMP 36.8; O2SAT 96
--- NOTE | 2022-10-05 02:16 | PC.NURSE ---
WEEKLY CHARTING - WEEK 1: Vital signs reviewed - no concerns. Temporary and comprehensive care plan reviewed - no change. Hx of chronic pain. Receives pregabalin 300mg BID and tramadol 50mg daily for pain management. Requires extensive assist of 1 with dressing, grooming, and bathing. Staff encourage resident participation. Able to complete oral cares independently after set-up. Staff assist PRN. Receives a regular diet with regular texture and thin liquids. Residnet requests large portions. No documented chewing/swallowing problems.
--- NOTE | 2022-10-05 07:13 | PC.NURSE ---
Week #1-ADL'S: Comprehensive and temporary care plan reviewed. No changes made and nothing added to temporary care plan.Resident needs extensive assist of 1 with dressing, grooming and bathing. Encourage to participate as much as she is able. Does orals cares after set up. Staff complete as needed. Independent with feeding after set up. Is on regular diet, large portions per her request. No problems with chewing/swallowing reported. Vital signs reviewed, no concerns. Continue with weekly monitoring. Pain: Has chronic pain controlled with Lyrica 300mg BID, Ultram 50mg BID. No complain of pain the past month. Has minor discomfort relieved with warm towel and positioning. She is able to verbalize need for pain.
[2022-10-05] MEDS: NYSTATIN POWDER 1 APPLIC TOPICAL ×2 (07:30→21:34)
[2022-10-05] MEDS: INSULIN GLARGINE,HUM.REC.ANLOG 100 UNIT/ML INSULN.PEN 22 UNIT SUBCUT (08:32)
[2022-10-05] MEDS: AMLODIPINE 10 MG TABLET PO (08:32)
[2022-10-05] MEDS: BUSPIRONE 10 MG TABLET PO ×2 (08:32→19:18)
[2022-10-05] MEDS: FLUOXETINE HCL 40 MG CAPSULE PO (08:32)
[2022-10-05] MEDS: lisinopriL 40 MG TABLET PO (08:33)
[2022-10-05] MEDS: TRAMADOL HCL 50 MG TABLET PO (08:33)
[2022-10-05] MEDS: FLUOXETINE HCL 20 MG CAPSULE PO (08:33)
[2022-10-05] MEDS: METOPROLOL TARTRATE 50 MG TABLET 62.5 MG PO ×2 (08:33→15:07)
[2022-10-05] MEDS: POTASSIUM CHLORIDE 20 MEQ TAB.ER.PRT 40 MEQ PO ×2 (08:33→15:13)
[2022-10-05 10:30] VITALS: TEMP 36.4; O2SAT 96
[2022-10-05 15:00] VITALS: TEMP 36.7; O2SAT 96
[2022-10-05 23:00] VITALS: TEMP 36.6; O2SAT 96
[2022-10-06] MEDS: INSULIN GLARGINE,HUM.REC.ANLOG 100 UNIT/ML INSULN.PEN 22 UNIT SUBCUT (07:34)
[2022-10-06] MEDS: BUSPIRONE 10 MG TABLET PO ×2 (07:34→19:44)
[2022-10-06] MEDS: AMLODIPINE 10 MG TABLET PO (07:34)
[2022-10-06] MEDS: TRAMADOL HCL 50 MG TABLET PO (07:35)
[2022-10-06] MEDS: FLUOXETINE HCL 40 MG CAPSULE PO (07:35)
[2022-10-06] MEDS: lisinopriL 40 MG TABLET PO (07:35)
[2022-10-06] MEDS: POTASSIUM CHLORIDE 20 MEQ TAB.ER.PRT 40 MEQ PO ×2 (07:35→16:00)
[2022-10-06] MEDS: FLUOXETINE HCL 20 MG CAPSULE PO (07:35)
[2022-10-06] MEDS: METOPROLOL TARTRATE 50 MG TABLET 62.5 MG PO ×2 (07:35→15:59)
[2022-10-06 10:31] VITALS: TEMP 36.6; O2SAT 96
--- NOTE | 2022-10-06 10:53 | PC.NURSE ---
Loose Stool: Resident had 3 episode of loose stool since morning. Standing order of Loperamide 2mg was given at 1100.
[2022-10-06] MEDS: LOPERAMIDE HCL 2 MG CAPSULE PO (10:56)
[2022-10-06 15:00] VITALS: TEMP 36.1; O2SAT 95
[2022-10-06 23:00] VITALS: TEMP 36.4; O2SAT 98
[2022-10-07 06:25] VITALS: TEMP 36.9; O2SAT 95
[2022-10-07] MEDS: BUSPIRONE 10 MG TABLET PO ×2 (08:06→19:03)
[2022-10-07] MEDS: FLUOXETINE HCL 40 MG CAPSULE PO (08:06)
[2022-10-07] MEDS: AMLODIPINE 10 MG TABLET PO (08:06)
[2022-10-07] MEDS: FLUOXETINE HCL 20 MG CAPSULE PO (08:06)
[2022-10-07] MEDS: METOPROLOL TARTRATE 50 MG TABLET 62.5 MG PO ×2 (08:07→15:26)
[2022-10-07] MEDS: lisinopriL 40 MG TABLET PO (08:07)
[2022-10-07] MEDS: POTASSIUM CHLORIDE 20 MEQ TAB.ER.PRT 40 MEQ PO ×2 (08:07→15:26)
[2022-10-07] MEDS: TRAMADOL HCL 50 MG TABLET PO (08:21)
[2022-10-07] MEDS: INSULIN GLARGINE,HUM.REC.ANLOG 100 UNIT/ML INSULN.PEN 22 UNIT SUBCUT (08:21)
[2022-10-07 15:00] VITALS: TEMP 36.9; O2SAT 97
[2022-10-07 23:00] VITALS: TEMP 36.4; O2SAT 93
[2022-10-08] MEDS: INSULIN GLARGINE,HUM.REC.ANLOG 100 UNIT/ML INSULN.PEN 22 UNIT SUBCUT (08:06)
[2022-10-08] MEDS: AMLODIPINE 10 MG TABLET PO (08:06)
[2022-10-08] MEDS: lisinopriL 40 MG TABLET PO (08:06)
[2022-10-08] MEDS: FLUOXETINE HCL 40 MG CAPSULE PO (08:06)
[2022-10-08] MEDS: METOPROLOL TARTRATE 50 MG TABLET 62.5 MG PO ×2 (08:06→15:21)
[2022-10-08] MEDS: FLUOXETINE HCL 20 MG CAPSULE PO (08:06)
[2022-10-08] MEDS: TRAMADOL HCL 50 MG TABLET PO (08:06)
[2022-10-08] MEDS: POTASSIUM CHLORIDE 20 MEQ TAB.ER.PRT 40 MEQ PO ×2 (08:06→15:21)
[2022-10-08] MEDS: BUSPIRONE 10 MG TABLET PO ×2 (08:06→19:32)
[2022-10-08 10:30] VITALS: TEMP 36.4; O2SAT 96
--- NOTE | 2022-10-08 13:35 | PC.NURSE ---
Resident status: Resident was confused informing that her brother is coming to meet her and he lives in the hospital. She also attempted to try and get up by herself. Resident was redirected and staff took her out to the patio to get fresh air. After that she refused to go back to her room and informed that she is waiting for her brother.
[2022-10-08 15:00] VITALS: TEMP 36.3; O2SAT 97
--- NOTE | 2022-10-08 21:44 | PC.NURSE ---
Status: No attempts of self-transferring this shift. No confusion noted.
--- NOTE | 2022-10-08 21:49 | PC.NURSE ---
EYE: Resident's right eye is very red. Does state is hurting. Negative Turner applied cold compress this evening. Resident stated it was not effective in providing relief. Issue placed in CONTACT REPRESENTATIVE book.
[2022-10-08 23:00] VITALS: TEMP 36.8; O2SAT 96
[2022-10-09 06:25] VITALS: TEMP 36.8; O2SAT 95
[2022-10-09] MEDS: AMLODIPINE 10 MG TABLET PO (07:28)
[2022-10-09] MEDS: BUSPIRONE 10 MG TABLET PO ×2 (07:28→19:39)
[2022-10-09] MEDS: FLUOXETINE HCL 20 MG CAPSULE PO (07:29)
[2022-10-09] MEDS: lisinopriL 40 MG TABLET PO (07:29)
[2022-10-09] MEDS: FLUOXETINE HCL 40 MG CAPSULE PO (07:29)
[2022-10-09] MEDS: METOPROLOL TARTRATE 50 MG TABLET 62.5 MG PO ×2 (07:29→15:10)
[2022-10-09] MEDS: POTASSIUM CHLORIDE 20 MEQ TAB.ER.PRT 40 MEQ PO ×2 (07:30→15:10)
[2022-10-09] MEDS: TRAMADOL HCL 50 MG TABLET PO (07:33)
[2022-10-09] MEDS: INSULIN GLARGINE,HUM.REC.ANLOG 100 UNIT/ML INSULN.PEN 22 UNIT SUBCUT (07:37)
[2022-10-09 14:37] LABS: SARS PCR* Negative SARS-CoV-2 (Negative)
[2022-10-09 15:00] VITALS: TEMP 36.7; O2SAT 96
[2022-10-09 23:00] VITALS: TEMP 36.5; O2SAT 95
[2022-10-10] MEDS: AMLODIPINE 10 MG TABLET PO (07:34)
[2022-10-10] MEDS: POTASSIUM CHLORIDE 20 MEQ TAB.ER.PRT 40 MEQ PO ×2 (07:36→15:20)
[2022-10-10] MEDS: FLUOXETINE HCL 40 MG CAPSULE PO (07:36)
[2022-10-10] MEDS: METOPROLOL TARTRATE 50 MG TABLET 62.5 MG PO ×2 (07:36→15:20)
[2022-10-10] MEDS: INSULIN GLARGINE,HUM.REC.ANLOG 100 UNIT/ML INSULN.PEN 22 UNIT SUBCUT (07:36)
[2022-10-10] MEDS: lisinopriL 40 MG TABLET PO (07:36)
[2022-10-10] MEDS: FLUOXETINE HCL 20 MG CAPSULE PO (07:36)
[2022-10-10] MEDS: BUSPIRONE 10 MG TABLET PO ×2 (07:36→19:45)
[2022-10-10] MEDS: TRAMADOL HCL 50 MG TABLET PO (07:37)
--- NOTE | 2022-10-10 10:09 | PC.NURSE ---
Status/Order: SENIOR JAVA PROGRAMMER, Artemio here. (R) eye redness and mattery assessed. Order: Polytrim eye drops QID X 5 days.
[2022-10-10 10:33] VITALS: TEMP 36.9; O2SAT 96
[2022-10-10 16:20] VITALS: TEMP 36.6; O2SAT 95
[2022-10-10 16:22] VITALS: BP 152/71; PULSE 65; RESP 18; TEMP 36.6; O2SAT 95
[2022-10-10 16:23] VITALS: BMI 32.2
[2022-10-10 23:00] VITALS: TEMP 36.7; O2SAT 95
[2022-10-11 06:23] VITALS: TEMP 36.9; O2SAT 95
[2022-10-11] MEDS: FLUOXETINE HCL 20 MG CAPSULE PO (07:27)
[2022-10-11] MEDS: FLUOXETINE HCL 40 MG CAPSULE PO (07:27)
[2022-10-11] MEDS: BUSPIRONE 10 MG TABLET PO ×2 (07:27→19:27)
[2022-10-11] MEDS: lisinopriL 40 MG TABLET PO (07:27)
[2022-10-11] MEDS: AMLODIPINE 10 MG TABLET PO (07:27)
[2022-10-11] MEDS: METOPROLOL TARTRATE 50 MG TABLET 62.5 MG PO ×2 (07:28→15:16)
[2022-10-11] MEDS: POTASSIUM CHLORIDE 20 MEQ TAB.ER.PRT 40 MEQ PO ×2 (07:28→15:16)
[2022-10-11] MEDS: TRAMADOL HCL 50 MG TABLET PO (07:30)
[2022-10-11] MEDS: INSULIN GLARGINE,HUM.REC.ANLOG 100 UNIT/ML INSULN.PEN 22 UNIT SUBCUT (07:40)
--- NOTE | 2022-10-11 13:59 | PC.PHA1 ---
INTERNAL SALES ENGINEER PHARMACIST'S MEDICATION REVIEW: MEDICATION MONITORING:Fluoxetine 40 mg and 20 mg daily on AUG (60 mg total) for depression and forms of outburst.? Buspar 10 mg qam and 10 mg hs. IRREGULARITY OR COMMENTS:Buspar GDR failure, back to 10 mg bid. Polymyxin/trimethoprim eye drops started 10/10/22 for red painful eye. Ultram dose decreased from bid to daily in the morning. SUGGESTED COURSE OF ACTION TAKEN:No medication recommendations at this time.
[2022-10-11 15:00] VITALS: TEMP 36.8; O2SAT 97
--- NOTE | 2022-10-11 16:16 | PC.SPIRITC ---
Organic Lab Worker provided visit for support and connection.
[2022-10-11 23:00] VITALS: TEMP 36.8; O2SAT 97
--- NOTE | 2022-10-12 03:17 | PC.NURSE ---
WEEKLY CHARTING - WEEK 2: Vital signs reviewed - no concerns. Temporary and comprehensive care plan reviewed - no change. Requires assist of 1 with EZ stand for all transfers. Is non-ambulatory. Extensive assist of 1-2 with bed mobility. Refuses to be moved in bed at night. Dependent on staff for w/c mobility. At high risk for falls per last fall risk assessment. Fall interventions: call light in reach, bed in low position with brakes locked, gripper socks on for all transfers, falling star magnet, frequently used items within reach.
[2022-10-12] MEDS: INSULIN GLARGINE,HUM.REC.ANLOG 100 UNIT/ML INSULN.PEN 22 UNIT SUBCUT (07:45)
[2022-10-12] MEDS: AMLODIPINE 10 MG TABLET PO (07:45)
[2022-10-12] MEDS: BUSPIRONE 10 MG TABLET PO ×2 (07:46→19:18)
[2022-10-12] MEDS: lisinopriL 40 MG TABLET PO (07:46)
[2022-10-12] MEDS: FLUOXETINE HCL 40 MG CAPSULE PO (07:46)
[2022-10-12] MEDS: FLUOXETINE HCL 20 MG CAPSULE PO (07:46)
[2022-10-12] MEDS: POTASSIUM CHLORIDE 20 MEQ TAB.ER.PRT 40 MEQ PO ×2 (07:46→15:41)
[2022-10-12] MEDS: METOPROLOL TARTRATE 50 MG TABLET 62.5 MG PO ×2 (07:46→15:40)
[2022-10-12] MEDS: TRAMADOL HCL 50 MG TABLET PO (07:46)
[2022-10-12 10:27] VITALS: TEMP 36.8; O2SAT 95
[2022-10-12 15:00] VITALS: TEMP 36.9; O2SAT 94
--- NOTE | 2022-10-12 22:13 | PC.NURSE ---
Week #2 - Mobility: Care plan reviewed, no changes necessary. Nothing additional to care plan. Resident is A1 w/transfers using EZ stand. Staff transfer to all destinations. Resident can move herself in bed. Resident has recliner alarm. VSS/no concerns. Fall: No fall w/in month. Immediate intervention: Resident continues to be high fall risk per assessment of 07/27/22. Fall Intervention: Call light w/in reach, gripper socks during all transfers, monitoring for increase weakness and med side effects, bed placed in low position w/brakes locked, recliner alarm on.
[2022-10-12 23:00] VITALS: TEMP 36.6; O2SAT 94
[2022-10-13] MEDS: AMLODIPINE 10 MG TABLET PO (07:36)
[2022-10-13] MEDS: BUSPIRONE 10 MG TABLET PO ×2 (07:36→19:11)
[2022-10-13] MEDS: FLUOXETINE HCL 40 MG CAPSULE PO (07:36)
[2022-10-13] MEDS: INSULIN GLARGINE,HUM.REC.ANLOG 100 UNIT/ML INSULN.PEN 22 UNIT SUBCUT (07:36)
[2022-10-13] MEDS: METOPROLOL TARTRATE 50 MG TABLET 62.5 MG PO ×2 (07:37→15:02)
[2022-10-13] MEDS: lisinopriL 40 MG TABLET PO (07:37)
[2022-10-13] MEDS: TRAMADOL HCL 50 MG TABLET PO (07:37)
[2022-10-13] MEDS: FLUOXETINE HCL 20 MG CAPSULE PO (07:37)
[2022-10-13] MEDS: POTASSIUM CHLORIDE 20 MEQ TAB.ER.PRT 40 MEQ PO ×2 (07:37→15:03)
[2022-10-13 10:57] VITALS: TEMP 36.6; O2SAT 97
--- NOTE | 2022-10-13 11:29 | PC.NURSE ---
Recert Visit: Resident seen by Dr. Retana. Orders reviewed and renewed without changes.
[2022-10-13 15:00] VITALS: TEMP 36.5; O2SAT 98
[2022-10-14 00:15] VITALS: TEMP 36.6; O2SAT 96
[2022-10-14] MEDS: AMLODIPINE 10 MG TABLET PO (08:17)
[2022-10-14] MEDS: BUSPIRONE 10 MG TABLET PO ×2 (08:17→19:48)
[2022-10-14] MEDS: INSULIN GLARGINE,HUM.REC.ANLOG 100 UNIT/ML INSULN.PEN 22 UNIT SUBCUT (08:17)
[2022-10-14] MEDS: METOPROLOL TARTRATE 50 MG TABLET 62.5 MG PO ×2 (08:18→15:12)
[2022-10-14] MEDS: FLUOXETINE HCL 40 MG CAPSULE PO (08:18)
[2022-10-14] MEDS: lisinopriL 40 MG TABLET PO (08:18)
[2022-10-14] MEDS: FLUOXETINE HCL 20 MG CAPSULE PO (08:18)
[2022-10-14] MEDS: TRAMADOL HCL 50 MG TABLET PO (08:19)
[2022-10-14] MEDS: POTASSIUM CHLORIDE 20 MEQ TAB.ER.PRT 40 MEQ PO ×2 (08:19→15:13)
[2022-10-14 13:19] VITALS: TEMP 36.3; O2SAT 94
[2022-10-14 15:00] VITALS: TEMP 36.4; O2SAT 94
[2022-10-14 23:55] VITALS: TEMP 36.4; O2SAT 96
[2022-10-15] MEDS: BUSPIRONE 10 MG TABLET PO ×2 (08:14→20:00)
[2022-10-15] MEDS: AMLODIPINE 10 MG TABLET PO (08:14)
[2022-10-15] MEDS: lisinopriL 40 MG TABLET PO (08:14)
[2022-10-15] MEDS: FLUOXETINE HCL 40 MG CAPSULE PO (08:14)
[2022-10-15] MEDS: FLUOXETINE HCL 20 MG CAPSULE PO (08:14)
[2022-10-15] MEDS: INSULIN GLARGINE,HUM.REC.ANLOG 100 UNIT/ML INSULN.PEN 22 UNIT SUBCUT (08:14)
[2022-10-15] MEDS: METOPROLOL TARTRATE 50 MG TABLET 62.5 MG PO ×2 (08:15→15:46)
[2022-10-15] MEDS: POTASSIUM CHLORIDE 20 MEQ TAB.ER.PRT 40 MEQ PO ×2 (08:18→15:47)
[2022-10-15] MEDS: TRAMADOL HCL 50 MG TABLET PO (08:18)
[2022-10-15 10:54] VITALS: TEMP 36.1; O2SAT 94
[2022-10-15 15:00] VITALS: TEMP 36.4; O2SAT 98
[2022-10-15 23:53] VITALS: TEMP 36.7; O2SAT 95
[2022-10-16] MEDS: AMLODIPINE 10 MG TABLET PO (07:51)
[2022-10-16] MEDS: FLUOXETINE HCL 40 MG CAPSULE PO (07:51)
[2022-10-16] MEDS: BUSPIRONE 10 MG TABLET PO ×2 (07:51→20:12)
[2022-10-16] MEDS: INSULIN GLARGINE,HUM.REC.ANLOG 100 UNIT/ML INSULN.PEN 22 UNIT SUBCUT (07:51)
[2022-10-16] MEDS: METOPROLOL TARTRATE 50 MG TABLET 62.5 MG PO ×2 (07:52→15:52)
[2022-10-16] MEDS: FLUOXETINE HCL 20 MG CAPSULE PO (07:52)
[2022-10-16] MEDS: lisinopriL 40 MG TABLET PO (07:52)
[2022-10-16] MEDS: TRAMADOL HCL 50 MG TABLET PO (07:53)
[2022-10-16] MEDS: POTASSIUM CHLORIDE 20 MEQ TAB.ER.PRT 40 MEQ PO ×2 (07:53→15:52)
[2022-10-16 13:08] VITALS: TEMP 36.2; O2SAT 96
[2022-10-16 13:18] LABS: SARS PCR* Negative SARS-CoV-2 (Negative)
[2022-10-16 15:14] VITALS: TEMP 37.1; O2SAT 95
[2022-10-16 23:00] VITALS: TEMP 36.6; O2SAT 98
[2022-10-17 06:31] VITALS: TEMP 37.1; O2SAT 94
[2022-10-17] MEDS: AMLODIPINE 10 MG TABLET PO (07:18)
[2022-10-17] MEDS: BUSPIRONE 10 MG TABLET PO ×2 (07:19→19:08)
[2022-10-17] MEDS: lisinopriL 40 MG TABLET PO (07:19)
[2022-10-17] MEDS: FLUOXETINE HCL 40 MG CAPSULE PO (07:19)
[2022-10-17] MEDS: FLUOXETINE HCL 20 MG CAPSULE PO (07:19)
[2022-10-17] MEDS: METOPROLOL TARTRATE 50 MG TABLET 62.5 MG PO ×2 (07:20→15:43)
[2022-10-17] MEDS: POTASSIUM CHLORIDE 20 MEQ TAB.ER.PRT 40 MEQ PO ×2 (07:20→15:43)
[2022-10-17] MEDS: TRAMADOL HCL 50 MG TABLET PO (07:22)
[2022-10-17] MEDS: INSULIN GLARGINE,HUM.REC.ANLOG 100 UNIT/ML INSULN.PEN 22 UNIT SUBCUT (07:28)
--- NOTE | 2022-10-17 11:42 | PC.NURSE ---
Skin note: This morning before performing S/P catheter site cares short story writer noted one small area of tape irritation to left upper abdomen measuring approximately 0.5 cm x 0.5 cm in size. No drainage observed to area. Internal Recruiter cleansed area with wound cleanser before patting dry. Area open to air at this time. Internal Recruiter did not place tape over this area of irritation with goal that area will begin to heal. No s/sx of infection observed. Internal Recruiter also updated intervention to complete tx BID until healed, as well as monitor for s/sx of infection until healed.
[2022-10-17 15:00] VITALS: BP 131/70; PULSE 73; RESP 18; TEMP 36.9; O2SAT 95
--- NOTE | 2022-10-17 16:29 | PC.NURSE ---
Skin concern: 0.2x0.2cm round, red pimple noted to Left Lower Abdomen post bath skin assessment.
[2022-10-17 23:00] VITALS: TEMP 36.6; O2SAT 93
[2022-10-18] MEDS: lisinopriL 40 MG TABLET PO (07:55)
[2022-10-18] MEDS: TRAMADOL HCL 50 MG TABLET PO (07:55)
[2022-10-18] MEDS: METOPROLOL TARTRATE 50 MG TABLET 62.5 MG PO ×2 (07:55→15:13)
[2022-10-18] MEDS: AMLODIPINE 10 MG TABLET PO (07:56)
[2022-10-18] MEDS: BUSPIRONE 10 MG TABLET PO ×2 (07:56→19:27)
[2022-10-18] MEDS: FLUOXETINE HCL 40 MG CAPSULE PO (07:57)
[2022-10-18] MEDS: FLUOXETINE HCL 20 MG CAPSULE PO (07:57)
[2022-10-18] MEDS: POTASSIUM CHLORIDE 20 MEQ TAB.ER.PRT 40 MEQ PO ×2 (08:06→15:14)
[2022-10-18] MEDS: INSULIN GLARGINE,HUM.REC.ANLOG 100 UNIT/ML INSULN.PEN 22 UNIT SUBCUT (08:22)
--- NOTE | 2022-10-19 00:10 | PC.NURSE ---
WEEKLY CHARTING WEEK 3 Vital signs reviewed, elevated BP noted. HOTEL CUSTODIAN aware, Vitals check weekly at bath days Comprehensive care plan and temporary care plan reviewed, No changes made. Toileting: Has Supra Pubic catheter due to neurogenic bladder from last stroke. Occasionally incontinent of bowel due to refusal to get up at [facility]. Wear XXL pull up. Assist of 1 staff will all catheter care, edward cares, clothing management. Skin: Has +1 edema on bilateral leg, Teds socks on AM off at bed time. Supra pubic site free of infection. Dressing change daily.. Skin check on bath days and during cares.
[2022-10-19] MEDS: AMLODIPINE 10 MG TABLET PO (08:00)
[2022-10-19] MEDS: INSULIN GLARGINE,HUM.REC.ANLOG 100 UNIT/ML INSULN.PEN 22 UNIT SUBCUT (08:00)
[2022-10-19] MEDS: BUSPIRONE 10 MG TABLET PO ×2 (08:00→19:34)
[2022-10-19] MEDS: FLUOXETINE HCL 40 MG CAPSULE PO (08:01)
[2022-10-19] MEDS: POTASSIUM CHLORIDE 20 MEQ TAB.ER.PRT 40 MEQ PO ×2 (08:01→15:54)
[2022-10-19] MEDS: FLUOXETINE HCL 20 MG CAPSULE PO (08:01)
[2022-10-19] MEDS: METOPROLOL TARTRATE 50 MG TABLET 62.5 MG PO ×2 (08:01→15:53)
[2022-10-19] MEDS: lisinopriL 40 MG TABLET PO (08:01)
[2022-10-19] MEDS: TRAMADOL HCL 50 MG TABLET PO (08:02)
--- NOTE | 2022-10-19 10:12 | PC.NURSE ---
Weekly week #3: Vital signs reviewed with no issues Temporary care plan reviewed with no changes Comprehensive care plan reviewed with no changes Resident has S/P cath with dressing changed BID Resident is able to brush teeth after set up, is able to position arm for sleeve, otherwise is extensive to total assist with all adls
[2022-10-20] MEDS: AMLODIPINE 10 MG TABLET PO (07:33)
[2022-10-20] MEDS: BUSPIRONE 10 MG TABLET PO ×2 (07:33→20:18)
[2022-10-20] MEDS: FLUOXETINE HCL 40 MG CAPSULE PO (07:34)
[2022-10-20] MEDS: lisinopriL 40 MG TABLET PO (07:34)
[2022-10-20] MEDS: METOPROLOL TARTRATE 50 MG TABLET 62.5 MG PO ×2 (07:34→15:22)
[2022-10-20] MEDS: FLUOXETINE HCL 20 MG CAPSULE PO (07:34)
[2022-10-20] MEDS: POTASSIUM CHLORIDE 20 MEQ TAB.ER.PRT 40 MEQ PO ×2 (07:35→15:22)
[2022-10-20] MEDS: TRAMADOL HCL 50 MG TABLET PO (07:37)
[2022-10-20] MEDS: INSULIN GLARGINE,HUM.REC.ANLOG 100 UNIT/ML INSULN.PEN 22 UNIT SUBCUT (07:41)
[2022-10-21] MEDS: AMLODIPINE 10 MG TABLET PO (08:01)
[2022-10-21] MEDS: BUSPIRONE 10 MG TABLET PO ×2 (08:01→19:46)
[2022-10-21] MEDS: lisinopriL 40 MG TABLET PO (08:02)
[2022-10-21] MEDS: METOPROLOL TARTRATE 50 MG TABLET 62.5 MG PO ×2 (08:02→15:41)
[2022-10-21] MEDS: FLUOXETINE HCL 20 MG CAPSULE PO (08:02)
[2022-10-21] MEDS: FLUOXETINE HCL 40 MG CAPSULE PO (08:02)
[2022-10-21] MEDS: POTASSIUM CHLORIDE 20 MEQ TAB.ER.PRT 40 MEQ PO ×2 (08:03→15:42)
[2022-10-21] MEDS: TRAMADOL HCL 50 MG TABLET PO (08:05)
[2022-10-21] MEDS: INSULIN GLARGINE,HUM.REC.ANLOG 100 UNIT/ML INSULN.PEN 22 UNIT SUBCUT (08:14)
[2022-10-22] MEDS: BUSPIRONE 10 MG TABLET PO ×2 (07:02→20:04)
[2022-10-22] MEDS: AMLODIPINE 10 MG TABLET PO (07:02)
[2022-10-22] MEDS: lisinopriL 40 MG TABLET PO (07:03)
[2022-10-22] MEDS: FLUOXETINE HCL 40 MG CAPSULE PO (07:03)
[2022-10-22] MEDS: FLUOXETINE HCL 20 MG CAPSULE PO (07:03)
[2022-10-22] MEDS: METOPROLOL TARTRATE 50 MG TABLET 62.5 MG PO ×2 (07:03→16:26)
[2022-10-22] MEDS: POTASSIUM CHLORIDE 20 MEQ TAB.ER.PRT 40 MEQ PO ×2 (07:04→16:32)
[2022-10-22] MEDS: TRAMADOL HCL 50 MG TABLET PO (07:05)
[2022-10-22] MEDS: INSULIN GLARGINE,HUM.REC.ANLOG 100 UNIT/ML INSULN.PEN 22 UNIT SUBCUT (07:32)
[2022-10-23] MEDS: lisinopriL 40 MG TABLET PO (08:16)
[2022-10-23] MEDS: FLUOXETINE HCL 40 MG CAPSULE PO (08:16)
[2022-10-23] MEDS: BUSPIRONE 10 MG TABLET PO ×2 (08:16→20:01)
[2022-10-23] MEDS: AMLODIPINE 10 MG TABLET PO (08:16)
[2022-10-23] MEDS: INSULIN GLARGINE,HUM.REC.ANLOG 100 UNIT/ML INSULN.PEN 22 UNIT SUBCUT (08:16)
[2022-10-23] MEDS: FLUOXETINE HCL 20 MG CAPSULE PO (08:16)
[2022-10-23] MEDS: TRAMADOL HCL 50 MG TABLET PO (08:17)
[2022-10-23] MEDS: POTASSIUM CHLORIDE 20 MEQ TAB.ER.PRT 40 MEQ PO ×2 (08:17→15:23)
[2022-10-23] MEDS: METOPROLOL TARTRATE 50 MG TABLET 62.5 MG PO ×2 (08:17→15:22)
[2022-10-24] MEDS: INSULIN GLARGINE,HUM.REC.ANLOG 100 UNIT/ML INSULN.PEN 22 UNIT SUBCUT (07:43)
[2022-10-24] MEDS: AMLODIPINE 10 MG TABLET PO (07:43)
[2022-10-24] MEDS: lisinopriL 40 MG TABLET PO (07:44)
[2022-10-24] MEDS: FLUOXETINE HCL 40 MG CAPSULE PO (07:44)
[2022-10-24] MEDS: POTASSIUM CHLORIDE 20 MEQ TAB.ER.PRT 40 MEQ PO ×2 (07:44→16:02)
[2022-10-24] MEDS: METOPROLOL TARTRATE 50 MG TABLET 62.5 MG PO ×2 (07:44→16:02)
[2022-10-24] MEDS: FLUOXETINE HCL 20 MG CAPSULE PO (07:44)
[2022-10-24] MEDS: BUSPIRONE 10 MG TABLET PO ×2 (07:44→19:20)
[2022-10-24] MEDS: TRAMADOL HCL 50 MG TABLET PO (07:44)
--- NOTE | 2022-10-24 11:58 | PC.SPIRITC ---
I provided visit for connection and support.
--- NOTE | 2022-10-24 13:30 | PC.NURSE ---
CARE CONFERENCE: meeting held with care team members from nursing, dietary, activities and social media community manager. Resident present, no family. Wt stable, appetite is good. Continues to eat snacks between meals. Nursing reviewed that resident continues to need 1 ANISH extensive assistance with dressing, grooming, mobility and bathing. Prolonged chronic weakness. Propelled by staff in wheelchair. Often refuses to leave her room. Residents cognitive deficits seem more prevalent today, resident makes minimal conversation, is very slow to respond and is limited to one or two word responses. Resident able to feed self after setup. Resident does smile and laugh. POLST reviewed. Is DNR/DNI. Uses no restraints.?Is not able to self admin own medications due to dementia. Mood is stable. Resident does not wish to talk therapist, SW aware and have informed therapist of this. Resident has made full recovery from norovirus/diarrhea. Vulnerability- is at risk for being harmed. Resident pleased with care at this time. There are no discharge plans, long-term care.?
[2022-10-24 15:00] VITALS: BP 149/79; PULSE 59; RESP 18; TEMP 36.7; O2SAT 97
--- NOTE | 2022-10-24 15:36 | PC.SOCIAL ---
Resident's care conference was held today with resident and all members of the team. Resident's mood remains stable no s/s of depression noted. Resident does not feel she needs to see the in-house mental health therapist anymore. Resident is going out Sunday to her sister's memorial and her daughter is renting a handicap accessible van.
[2022-10-24 16:20] VITALS: BMI 31.1
--- NOTE | 2022-10-24 21:40 | PC.NURSE ---
Resident approached by ANISH after supper and she refused her schedule bath, reapproached by Nurse and resident still refused stating no I am watching TV and becoming increasily agitated with each reapproach.
[2022-10-25] MEDS: BUSPIRONE 10 MG TABLET PO ×2 (07:41→19:14)
[2022-10-25] MEDS: lisinopriL 40 MG TABLET PO (07:41)
[2022-10-25] MEDS: FLUOXETINE HCL 40 MG CAPSULE PO (07:41)
[2022-10-25] MEDS: AMLODIPINE 10 MG TABLET PO (07:41)
[2022-10-25] MEDS: FLUOXETINE HCL 20 MG CAPSULE PO (07:41)
[2022-10-25] MEDS: POTASSIUM CHLORIDE 20 MEQ TAB.ER.PRT 40 MEQ PO ×2 (07:42→15:17)
[2022-10-25] MEDS: METOPROLOL TARTRATE 50 MG TABLET 62.5 MG PO ×2 (07:42→15:17)
[2022-10-25] MEDS: TRAMADOL HCL 50 MG TABLET PO (07:43)
[2022-10-25] MEDS: INSULIN GLARGINE,HUM.REC.ANLOG 100 UNIT/ML INSULN.PEN 22 UNIT SUBCUT (07:48)
--- NOTE | 2022-10-25 16:25 | PC.SPIRITC ---
Shaista was tearful at times, especially talking about her sister, Dickson, who recently . Per Shaista, she appreciates having pictures of Dickson up in her room so she can stop and reflect by them. I provided visit for support and connection.
--- NOTE | 2022-10-26 02:02 | PC.NURSE ---
WEEKLY CHARTING - WEEK 4: Vital signs reviewed with no concerns. Temporary and comprehensive care plan reviewed no changes at this time. Behavior documented x1 in the last month. Currently receives buspirone 10mg BID and fluoxetine 60mg daily with no adverse drug effects noted. Able to communicate needs. Staff anticipate needs also. Hearing is adequate. Visual impairment r/t macular degeneration. Cognitive impairment r/t dementia d/t CVA. Has short/long-term memory loss. All medications administered by licensed nurse. Health condition currently stable.
[2022-10-26] MEDS: FLUOXETINE HCL 20 MG CAPSULE PO (07:54)
[2022-10-26] MEDS: BUSPIRONE 10 MG TABLET PO ×2 (07:54→20:45)
[2022-10-26] MEDS: AMLODIPINE 10 MG TABLET PO (07:54)
[2022-10-26] MEDS: FLUOXETINE HCL 40 MG CAPSULE PO (07:54)
[2022-10-26] MEDS: INSULIN GLARGINE,HUM.REC.ANLOG 100 UNIT/ML INSULN.PEN 22 UNIT SUBCUT (07:54)
[2022-10-26] MEDS: lisinopriL 40 MG TABLET PO (07:54)
[2022-10-26] MEDS: METOPROLOL TARTRATE 50 MG TABLET 62.5 MG PO ×2 (07:54→15:37)
[2022-10-26] MEDS: POTASSIUM CHLORIDE 20 MEQ TAB.ER.PRT 40 MEQ PO ×2 (07:55→15:37)
[2022-10-26] MEDS: TRAMADOL HCL 50 MG TABLET PO (07:55)
--- NOTE | 2022-10-26 11:43 | PC.NURSE ---
Weekly Charting-Week 4: Comprehensive & temporary care plan reviewed, no changes made. Nothing added to temporary care plan. No changes in communication, hearing, vision, or orientation. Resident does communicate needs and use the call light. Staff also anticipates. No issues issues. Visual impairment corrected by glasses. Chronic health condition stable. Has cognitive impairment. Nurse administer all medication. Has occasional elevated BP's, continue weekly vital signs monitoring. Mood/Behavior: Has one episode of yelling at staff. 09/21 Buspar increased back to 10mg BID (resident has been having hallucination). No adverse effects noted. Continue to monitor for changes.
[2022-10-27] MEDS: NYSTATIN POWDER 1 APPLIC TOPICAL ×2 (07:25→20:56)
[2022-10-27] MEDS: BUSPIRONE 10 MG TABLET PO ×2 (08:26→19:25)
[2022-10-27] MEDS: AMLODIPINE 10 MG TABLET PO (08:26)
[2022-10-27] MEDS: INSULIN GLARGINE,HUM.REC.ANLOG 100 UNIT/ML INSULN.PEN 22 UNIT SUBCUT (08:26)
[2022-10-27] MEDS: FLUOXETINE HCL 40 MG CAPSULE PO (08:27)
[2022-10-27] MEDS: METOPROLOL TARTRATE 50 MG TABLET 62.5 MG PO ×2 (08:27→15:24)
[2022-10-27] MEDS: lisinopriL 40 MG TABLET PO (08:27)
[2022-10-27] MEDS: FLUOXETINE HCL 20 MG CAPSULE PO (08:27)
[2022-10-27] MEDS: TRAMADOL HCL 50 MG TABLET PO (08:28)
[2022-10-27] MEDS: POTASSIUM CHLORIDE 20 MEQ TAB.ER.PRT 40 MEQ PO ×2 (08:28→15:24)
[2022-10-28] MEDS: NYSTATIN POWDER 1 APPLIC TOPICAL ×2 (07:24→21:12)
[2022-10-28] MEDS: AMLODIPINE 10 MG TABLET PO (08:22)
[2022-10-28] MEDS: BUSPIRONE 10 MG TABLET PO ×2 (08:23→19:12)
[2022-10-28] MEDS: METOPROLOL TARTRATE 50 MG TABLET 62.5 MG PO ×2 (08:23→11:18)
[2022-10-28] MEDS: lisinopriL 40 MG TABLET PO (08:23)
[2022-10-28] MEDS: FLUOXETINE HCL 20 MG CAPSULE PO (08:23)
[2022-10-28] MEDS: FLUOXETINE HCL 40 MG CAPSULE PO (08:23)
[2022-10-28] MEDS: INSULIN GLARGINE,HUM.REC.ANLOG 100 UNIT/ML INSULN.PEN 22 UNIT SUBCUT (08:23)
[2022-10-28] MEDS: POTASSIUM CHLORIDE 20 MEQ TAB.ER.PRT 40 MEQ PO ×2 (08:24→11:21)
[2022-10-28] MEDS: TRAMADOL HCL 50 MG TABLET PO (08:24)
--- NOTE | 2022-10-28 13:37 | PC.NURSE ---
Outing: Resident left with daughter for a . Will be back around 7pm
--- NOTE | 2022-10-28 21:13 | PC.NURSE ---
Resident returned from at 1900.
[2022-10-29] MEDS: INSULIN GLARGINE,HUM.REC.ANLOG 100 UNIT/ML INSULN.PEN 22 UNIT SUBCUT (08:05)
[2022-10-29] MEDS: FLUOXETINE HCL 40 MG CAPSULE PO (08:05)
[2022-10-29] MEDS: AMLODIPINE 10 MG TABLET PO (08:05)
[2022-10-29] MEDS: BUSPIRONE 10 MG TABLET PO ×2 (08:05→19:28)
[2022-10-29] MEDS: METOPROLOL TARTRATE 50 MG TABLET 62.5 MG PO ×2 (08:06→15:41)
[2022-10-29] MEDS: POTASSIUM CHLORIDE 20 MEQ TAB.ER.PRT 40 MEQ PO ×2 (08:06→15:41)
[2022-10-29] MEDS: TRAMADOL HCL 50 MG TABLET PO (08:06)
[2022-10-29] MEDS: lisinopriL 40 MG TABLET PO (08:06)
[2022-10-29] MEDS: FLUOXETINE HCL 20 MG CAPSULE PO (08:06)
[2022-10-30] MEDS: NYSTATIN POWDER 1 APPLIC TOPICAL (07:38)
[2022-10-30] MEDS: AMLODIPINE 10 MG TABLET PO (07:57)
[2022-10-30] MEDS: BUSPIRONE 10 MG TABLET PO ×2 (07:58→19:46)
[2022-10-30] MEDS: FLUOXETINE HCL 20 MG CAPSULE PO (07:58)
[2022-10-30] MEDS: METOPROLOL TARTRATE 50 MG TABLET 62.5 MG PO ×2 (07:58→15:48)
[2022-10-30] MEDS: INSULIN GLARGINE,HUM.REC.ANLOG 100 UNIT/ML INSULN.PEN 22 UNIT SUBCUT (07:58)
[2022-10-30] MEDS: lisinopriL 40 MG TABLET PO (07:58)
[2022-10-30] MEDS: FLUOXETINE HCL 40 MG CAPSULE PO (07:58)
[2022-10-30] MEDS: POTASSIUM CHLORIDE 20 MEQ TAB.ER.PRT 40 MEQ PO ×2 (07:59→15:49)
[2022-10-30] MEDS: TRAMADOL HCL 50 MG TABLET PO (07:59)
[2022-10-31] MEDS: BUSPIRONE 10 MG TABLET PO ×2 (07:47→19:54)
[2022-10-31] MEDS: FLUOXETINE HCL 40 MG CAPSULE PO (07:47)
[2022-10-31] MEDS: FLUOXETINE HCL 20 MG CAPSULE PO (07:47)
[2022-10-31] MEDS: AMLODIPINE 10 MG TABLET PO (07:47)
[2022-10-31] MEDS: POTASSIUM CHLORIDE 20 MEQ TAB.ER.PRT 40 MEQ PO ×2 (07:48→15:51)
[2022-10-31] MEDS: lisinopriL 40 MG TABLET PO (07:48)
[2022-10-31] MEDS: METOPROLOL TARTRATE 50 MG TABLET 62.5 MG PO ×2 (07:48→15:51)
[2022-10-31] MEDS: TRAMADOL HCL 50 MG TABLET PO (07:50)
[2022-10-31] MEDS: INSULIN GLARGINE,HUM.REC.ANLOG 100 UNIT/ML INSULN.PEN 22 UNIT SUBCUT (07:55)
--- NOTE | 2022-10-31 12:44 | PC.NURSE ---
Skin note: ANISH reported that while toileting resident grabbed chronic skin tag to her left forearm and was not able to let go due to involuntary movement. Skin tag noted to be bleeding. Sole Stainer cleansed area with wound cleanser before patting dry and applying Band-aid. Nursing to continue with daily treatment and monitor for s/s of infection until healed.
--- NOTE | 2022-10-31 13:21 | PC.NURSE ---
Daughter Katarzyna spoke to advertising copywriter and advised that during her outing this weekend resident often talked about her own mother being alive and that she was going to go visit her. She was able to understand her own age of 81 but was unable to understand that her mother was no longer living per daughter. Daughter and staff are noticing a decline in cognitive function overall. Daughter does not want any further work up at this time and resident is DNR/DNI comfort focused care.
[2022-10-31 15:00] VITALS: BP 146/80; PULSE 56; RESP 16; TEMP 36.6; O2SAT 96
[2022-10-31 21:18] VITALS: BMI 31.8
[2022-11-01] MEDS: AMLODIPINE 10 MG TABLET PO (07:32)
[2022-11-01] MEDS: FLUOXETINE HCL 20 MG CAPSULE PO (07:32)
[2022-11-01] MEDS: FLUOXETINE HCL 40 MG CAPSULE PO (07:32)
[2022-11-01] MEDS: BUSPIRONE 10 MG TABLET PO ×2 (07:32→19:02)
[2022-11-01] MEDS: METOPROLOL TARTRATE 50 MG TABLET 62.5 MG PO ×2 (07:33→15:27)
[2022-11-01] MEDS: lisinopriL 40 MG TABLET PO (07:33)
[2022-11-01] MEDS: TRAMADOL HCL 50 MG TABLET PO (07:41)
[2022-11-01] MEDS: POTASSIUM CHLORIDE 20 MEQ TAB.ER.PRT 40 MEQ PO ×2 (07:41→15:27)
[2022-11-01] MEDS: INSULIN GLARGINE,HUM.REC.ANLOG 100 UNIT/ML INSULN.PEN 22 UNIT SUBCUT (07:44)
--- NOTE | 2022-11-01 16:12 | PC.SPIRITC ---
Shaista talked about her sister's memorial service and spending time with family. I provided visit for comfort and support.
--- NOTE | 2022-11-02 01:49 | PC.NURSE ---
WEEKLY CHARTING - WEEK 1: Vital signs reviewed - minor BP elevations at times. Continue to monitor and update provider as needed. Temporary and comprehensive care plan reviewed - no change. Hx of chronic pain. Receives pregabalin 300mg BID and tramadol 50mg daily for pain management. Extensive assist of 1 with dressing, grooming, and bathing. Able to complete oral cares independently after set-up. Staff complete as needed. Receives a regular diet with regular texture and thin liquids. Receives large portions per resident request. Eats independently after setup. No documented chewing/swallowing problems.?
--- NOTE | 2022-11-02 07:14 | PC.NURSE ---
Weekly Charting, Week 1-ADL'S: Comprehensive and temporary care plan reviewed. No changes made and nothing added to temporary care plan.Resident needs extensive assist of 1 with dressing, grooming and bathing. Encourage to participate as much as she is able. Does oral cares after set up. Staff complete as needed. Independent with feeding after set up. Is on regular diet, regular texture, thin liquids, large portions per her request. No problems with chewing/swallowing reported. Vital signs reviewed, occasional elevated BP's. Continue with weekly monitoring and refer to provider as needed. Pain: Has chronic pain controlled with Lyrica 300mg BID, Ultram 50mg BID. No complain of pain the past month. She is able to verbalize need for pain.
[2022-11-02] MEDS: NYSTATIN POWDER 1 APPLIC TOPICAL (07:52)
[2022-11-02] MEDS: AMLODIPINE 10 MG TABLET PO (08:16)
[2022-11-02] MEDS: INSULIN GLARGINE,HUM.REC.ANLOG 100 UNIT/ML INSULN.PEN 22 UNIT SUBCUT (08:16)
[2022-11-02] MEDS: FLUOXETINE HCL 40 MG CAPSULE PO (08:17)
[2022-11-02] MEDS: BUSPIRONE 10 MG TABLET PO ×2 (08:17→19:25)
[2022-11-02] MEDS: FLUOXETINE HCL 20 MG CAPSULE PO (08:17)
[2022-11-02] MEDS: METOPROLOL TARTRATE 50 MG TABLET 62.5 MG PO ×2 (08:17→15:59)
[2022-11-02] MEDS: lisinopriL 40 MG TABLET PO (08:17)
[2022-11-02] MEDS: POTASSIUM CHLORIDE 20 MEQ TAB.ER.PRT 40 MEQ PO ×2 (08:18→16:00)
[2022-11-02] MEDS: TRAMADOL HCL 50 MG TABLET PO (08:21)
--- NOTE | 2022-11-02 12:17 | PC.NURSE ---
MDS Clarification: ADLs ? discrepancies noted in ADL charting. NARs with incorrect charting were interviewed. Ambulation: resident is unable to ambulate at any time, is EZstand for all transfers and wheelchair bound. Locomotion: resident is unable to assist with locomotion once in her wheelchair at any time, total dependence. Eating: resident was independent with setup every time. All items coded as such.
[2022-11-03] MEDS: AMLODIPINE 10 MG TABLET PO (07:37)
[2022-11-03] MEDS: lisinopriL 40 MG TABLET PO (07:38)
[2022-11-03] MEDS: BUSPIRONE 10 MG TABLET PO ×2 (07:38→19:34)
[2022-11-03] MEDS: FLUOXETINE HCL 20 MG CAPSULE PO (07:38)
[2022-11-03] MEDS: POTASSIUM CHLORIDE 20 MEQ TAB.ER.PRT 40 MEQ PO ×2 (07:38→16:09)
[2022-11-03] MEDS: METOPROLOL TARTRATE 50 MG TABLET 62.5 MG PO ×2 (07:38→16:08)
[2022-11-03] MEDS: FLUOXETINE HCL 40 MG CAPSULE PO (07:38)
[2022-11-03] MEDS: TRAMADOL HCL 50 MG TABLET PO (07:39)
[2022-11-03] MEDS: INSULIN GLARGINE,HUM.REC.ANLOG 100 UNIT/ML INSULN.PEN 22 UNIT SUBCUT (07:44)
[2022-11-04] MEDS: BUSPIRONE 10 MG TABLET PO ×2 (07:31→19:54)
[2022-11-04] MEDS: AMLODIPINE 10 MG TABLET PO (07:31)
[2022-11-04] MEDS: FLUOXETINE HCL 20 MG CAPSULE PO (07:31)
[2022-11-04] MEDS: FLUOXETINE HCL 40 MG CAPSULE PO (07:31)
[2022-11-04] MEDS: lisinopriL 40 MG TABLET PO (07:32)
[2022-11-04] MEDS: METOPROLOL TARTRATE 50 MG TABLET 62.5 MG PO ×2 (07:32→15:09)
[2022-11-04] MEDS: POTASSIUM CHLORIDE 20 MEQ TAB.ER.PRT 40 MEQ PO ×2 (07:34→15:47)
[2022-11-04] MEDS: TRAMADOL HCL 50 MG TABLET PO (07:36)
[2022-11-04] MEDS: INSULIN GLARGINE,HUM.REC.ANLOG 100 UNIT/ML INSULN.PEN 22 UNIT SUBCUT (07:40)
[2022-11-05] MEDS: lisinopriL 40 MG TABLET PO (08:03)
[2022-11-05] MEDS: FLUOXETINE HCL 40 MG CAPSULE PO (08:03)
[2022-11-05] MEDS: FLUOXETINE HCL 20 MG CAPSULE PO (08:03)
[2022-11-05] MEDS: BUSPIRONE 10 MG TABLET PO ×2 (08:03→19:24)
[2022-11-05] MEDS: AMLODIPINE 10 MG TABLET PO (08:03)
[2022-11-05] MEDS: METOPROLOL TARTRATE 50 MG TABLET 62.5 MG PO ×2 (08:04→15:12)
[2022-11-05] MEDS: POTASSIUM CHLORIDE 20 MEQ TAB.ER.PRT 40 MEQ PO ×2 (08:04→15:12)
[2022-11-05] MEDS: TRAMADOL HCL 50 MG TABLET PO (08:06)
[2022-11-05] MEDS: INSULIN GLARGINE,HUM.REC.ANLOG 100 UNIT/ML INSULN.PEN 22 UNIT SUBCUT (08:11)
[2022-11-06] MEDS: AMLODIPINE 10 MG TABLET PO (08:04)
[2022-11-06] MEDS: BUSPIRONE 10 MG TABLET PO ×2 (08:05→20:13)
[2022-11-06] MEDS: lisinopriL 40 MG TABLET PO (08:05)
[2022-11-06] MEDS: INSULIN GLARGINE,HUM.REC.ANLOG 100 UNIT/ML INSULN.PEN 22 UNIT SUBCUT (08:05)
[2022-11-06] MEDS: FLUOXETINE HCL 20 MG CAPSULE PO (08:05)
[2022-11-06] MEDS: METOPROLOL TARTRATE 50 MG TABLET 62.5 MG PO ×2 (08:05→15:55)
[2022-11-06] MEDS: FLUOXETINE HCL 40 MG CAPSULE PO (08:05)
[2022-11-06] MEDS: POTASSIUM CHLORIDE 20 MEQ TAB.ER.PRT 40 MEQ PO ×2 (08:06→15:56)
[2022-11-06] MEDS: TRAMADOL HCL 50 MG TABLET PO (08:06)
--- NOTE | 2022-11-06 10:00 | PC.NURSE ---
Status: Resident was very confused this morning, stating she was looking for the kids. She keeps taking her bed apart looking for them. Urine is clear yellow and temp 97.4
--- NOTE | 2022-11-06 13:04 | PC.NURSE ---
Status: Resident continues to say that there are 2 kids in her room which are her's. Unable to redirect at this time
[2022-11-06] MEDS: MAGNESIUM HYDROXIDE 30 ML ORAL.SUSP PO (16:00)
[2022-11-07] MEDS: BUSPIRONE 10 MG TABLET PO ×2 (07:22→19:19)
[2022-11-07] MEDS: INSULIN GLARGINE,HUM.REC.ANLOG 100 UNIT/ML INSULN.PEN 22 UNIT SUBCUT (07:22)
[2022-11-07] MEDS: AMLODIPINE 10 MG TABLET PO (07:22)
[2022-11-07] MEDS: FLUOXETINE HCL 20 MG CAPSULE PO (07:23)
[2022-11-07] MEDS: lisinopriL 40 MG TABLET PO (07:23)
[2022-11-07] MEDS: FLUOXETINE HCL 40 MG CAPSULE PO (07:23)
[2022-11-07] MEDS: METOPROLOL TARTRATE 50 MG TABLET 62.5 MG PO ×2 (07:23→15:13)
[2022-11-07] MEDS: TRAMADOL HCL 50 MG TABLET PO (07:38)
[2022-11-07] MEDS: POTASSIUM CHLORIDE 20 MEQ TAB.ER.PRT 40 MEQ PO ×2 (07:38→15:13)
--- NOTE | 2022-11-07 12:18 | PC.NURSE ---
Status/Order: SAVE ALL OPERATOR, Artemio here. Updated of resident confusion and visual hallucinations with some agitation. Afebrile. Urine output good amounts, clear. Tramadol 50 mg BID PRN ordered, status possibly related to pain.
--- NOTE | 2022-11-07 13:32 | PC.NURSE ---
Family Update: Daughter contacted & updated resident having some agitation with visual hallucinations, confusion. Afebrile, urine clear. REGISTERED DIET TECHNICIAN here, meds reviewed. Tramadol 50 mg BID PRN ordered, status could be possibly related to pain. And staff will continue to monitor. Daughter is okay with the plan and did acknowledge that it could be her dementia progressing.
[2022-11-07 15:00] VITALS: BP 131/72; PULSE 56; RESP 18; TEMP 36.3; O2SAT 96
[2022-11-07 16:00] VITALS: BMI 30.8
--- NOTE | 2022-11-07 21:44 | PC.NURSE ---
Bath: Resident schedule bath done and dressing to suprapubic site change, did have some bleeding from the site, edema noted to bilateral ankle and feet, rest of skin is intact
[2022-11-08] MEDS: AMLODIPINE 10 MG TABLET PO (07:30)
[2022-11-08] MEDS: FLUOXETINE HCL 40 MG CAPSULE PO (07:30)
[2022-11-08] MEDS: BUSPIRONE 10 MG TABLET PO ×2 (07:30→19:29)
[2022-11-08] MEDS: FLUOXETINE HCL 20 MG CAPSULE PO (07:30)
[2022-11-08] MEDS: lisinopriL 40 MG TABLET PO (07:31)
[2022-11-08] MEDS: METOPROLOL TARTRATE 50 MG TABLET 62.5 MG PO ×2 (07:31→15:16)
[2022-11-08] MEDS: POTASSIUM CHLORIDE 20 MEQ TAB.ER.PRT 40 MEQ PO ×2 (07:32→15:16)
[2022-11-08] MEDS: TRAMADOL HCL 50 MG TABLET PO (07:37)
[2022-11-08] MEDS: INSULIN GLARGINE,HUM.REC.ANLOG 100 UNIT/ML INSULN.PEN 22 UNIT SUBCUT (07:40)
--- NOTE | 2022-11-08 16:17 | PC.SPIRITC ---
I provided visit for support, connection, and to wheel Shaista outside.
--- NOTE | 2022-11-09 03:58 | PC.NURSE ---
WEEKLY CHARTING WEEK 2 MOBILITY Vitals normals , continue to check blood glucose three times a week, no concerns. Temporary and comprehensive care plan, no change. Mobility : resident is assist of one with transfer with EZ stand at all times ; one assist with bed mobility, she is non ambulatory. Resident is able to shift positions once in bed and refused to lie on the side at night. She is propelled by staff to all destinations in w/c during the day.
--- NOTE | 2022-11-09 07:25 | PC.NURSE ---
Weekly Charting, Week 2 - MOBILITY: Comprehensive and temporary care plan reviewed. No changes made, nothing added to temporary care plan. Resident is non ambulatory. One assist, medi stand for all transfers. Staff propel to all destinations.? Staff assist with bed positioning.? No alarms. Vital signs reviewed, no concerns. Continue weekly monitoring. Fall: No falls the past month. Remains a high fall risk according to assessment done on 10/24/22. Fall interventions: call light within reach, bed in low position with brakes locked. gripper socks for all transfers, falling star magnet.
[2022-11-09] MEDS: AMLODIPINE 10 MG TABLET PO (07:39)
[2022-11-09] MEDS: FLUOXETINE HCL 20 MG CAPSULE PO (07:40)
[2022-11-09] MEDS: lisinopriL 40 MG TABLET PO (07:40)
[2022-11-09] MEDS: BUSPIRONE 10 MG TABLET PO ×2 (07:40→19:19)
[2022-11-09] MEDS: FLUOXETINE HCL 40 MG CAPSULE PO (07:40)
[2022-11-09] MEDS: METOPROLOL TARTRATE 50 MG TABLET 62.5 MG PO ×2 (07:40→15:31)
[2022-11-09] MEDS: TRAMADOL HCL 50 MG TABLET PO (07:42)
[2022-11-09] MEDS: POTASSIUM CHLORIDE 20 MEQ TAB.ER.PRT 40 MEQ PO ×2 (07:42→15:31)
[2022-11-09] MEDS: INSULIN GLARGINE,HUM.REC.ANLOG 100 UNIT/ML INSULN.PEN 22 UNIT SUBCUT (07:51)
--- NOTE | 2022-11-09 09:26 | PC.NURSE ---
Suprapubic Dressing : It was not done this morning as to monitor wound condition whether to do daily or BD dressing. Wound will be inspected on Sunday to decide on frequency.
--- NOTE | 2022-11-09 09:54 | PC.SPIRITC ---
I provided visit for support and connection along with providing communion service.
[2022-11-10] MEDS: FLUOXETINE HCL 40 MG CAPSULE PO (08:40)
[2022-11-10] MEDS: INSULIN GLARGINE,HUM.REC.ANLOG 100 UNIT/ML INSULN.PEN 22 UNIT SUBCUT (08:40)
[2022-11-10] MEDS: AMLODIPINE 10 MG TABLET PO (08:40)
[2022-11-10] MEDS: BUSPIRONE 10 MG TABLET PO ×2 (08:40→19:50)
[2022-11-10] MEDS: FLUOXETINE HCL 20 MG CAPSULE PO (08:40)
[2022-11-10] MEDS: TRAMADOL HCL 50 MG TABLET PO (08:41)
[2022-11-10] MEDS: lisinopriL 40 MG TABLET PO (08:41)
[2022-11-10] MEDS: METOPROLOL TARTRATE 50 MG TABLET 62.5 MG PO ×2 (08:41→15:08)
[2022-11-10] MEDS: POTASSIUM CHLORIDE 20 MEQ TAB.ER.PRT 40 MEQ PO ×2 (08:41→15:08)
[2022-11-11] MEDS: AMLODIPINE 10 MG TABLET PO (08:16)
[2022-11-11] MEDS: TRAMADOL HCL 50 MG TABLET PO (08:17)
[2022-11-11] MEDS: METOPROLOL TARTRATE 50 MG TABLET 62.5 MG PO ×2 (08:17→16:25)
[2022-11-11] MEDS: FLUOXETINE HCL 40 MG CAPSULE PO (08:17)
[2022-11-11] MEDS: lisinopriL 40 MG TABLET PO (08:17)
[2022-11-11] MEDS: BUSPIRONE 10 MG TABLET PO ×2 (08:17→19:22)
[2022-11-11] MEDS: FLUOXETINE HCL 20 MG CAPSULE PO (08:17)
[2022-11-11] MEDS: INSULIN GLARGINE,HUM.REC.ANLOG 100 UNIT/ML INSULN.PEN 22 UNIT SUBCUT (08:17)
[2022-11-11] MEDS: POTASSIUM CHLORIDE 20 MEQ TAB.ER.PRT 40 MEQ PO ×2 (08:17→16:25)
--- NOTE | 2022-11-11 12:41 | PC.NURSE ---
Status: Resident has been confused this shift ie: I am going to her aunts house who is [address], [place]. Would not go into recliner after lunch. Temp 97.2, fluids pushed
[2022-11-11] MEDS: NYSTATIN POWDER 1 APPLIC TOPICAL (19:33)
[2022-11-12] MEDS: NYSTATIN POWDER 1 APPLIC TOPICAL ×2 (07:02→22:25)
[2022-11-12] MEDS: BUSPIRONE 10 MG TABLET PO ×2 (08:12→20:26)
[2022-11-12] MEDS: INSULIN GLARGINE,HUM.REC.ANLOG 100 UNIT/ML INSULN.PEN 22 UNIT SUBCUT (08:12)
[2022-11-12] MEDS: FLUOXETINE HCL 40 MG CAPSULE PO (08:12)
[2022-11-12] MEDS: AMLODIPINE 10 MG TABLET PO (08:12)
[2022-11-12] MEDS: lisinopriL 40 MG TABLET PO (08:13)
[2022-11-12] MEDS: POTASSIUM CHLORIDE 20 MEQ TAB.ER.PRT 40 MEQ PO ×2 (08:13→15:13)
[2022-11-12] MEDS: TRAMADOL HCL 50 MG TABLET PO (08:13)
[2022-11-12] MEDS: FLUOXETINE HCL 20 MG CAPSULE PO (08:13)
[2022-11-12] MEDS: METOPROLOL TARTRATE 50 MG TABLET 62.5 MG PO ×2 (08:13→15:13)
[2022-11-13] MEDS: FLUOXETINE HCL 40 MG CAPSULE PO (08:04)
[2022-11-13] MEDS: INSULIN GLARGINE,HUM.REC.ANLOG 100 UNIT/ML INSULN.PEN 22 UNIT SUBCUT (08:04)
[2022-11-13] MEDS: BUSPIRONE 10 MG TABLET PO ×2 (08:04→20:01)
[2022-11-13] MEDS: FLUOXETINE HCL 20 MG CAPSULE PO (08:04)
[2022-11-13] MEDS: AMLODIPINE 10 MG TABLET PO (08:04)
[2022-11-13] MEDS: TRAMADOL HCL 50 MG TABLET PO (08:05)
[2022-11-13] MEDS: METOPROLOL TARTRATE 50 MG TABLET 62.5 MG PO ×2 (08:05→16:23)
[2022-11-13] MEDS: POTASSIUM CHLORIDE 20 MEQ TAB.ER.PRT 40 MEQ PO ×2 (08:05→16:24)
[2022-11-13] MEDS: lisinopriL 40 MG TABLET PO (08:05)
[2022-11-14] MEDS: AMLODIPINE 10 MG TABLET PO (07:49)
[2022-11-14] MEDS: BUSPIRONE 10 MG TABLET PO ×2 (07:50→19:23)
[2022-11-14] MEDS: lisinopriL 40 MG TABLET PO (07:50)
[2022-11-14] MEDS: FLUOXETINE HCL 20 MG CAPSULE PO (07:50)
[2022-11-14] MEDS: FLUOXETINE HCL 40 MG CAPSULE PO (07:50)
[2022-11-14] MEDS: METOPROLOL TARTRATE 50 MG TABLET 62.5 MG PO ×2 (07:50→15:37)
[2022-11-14] MEDS: POTASSIUM CHLORIDE 20 MEQ TAB.ER.PRT 40 MEQ PO ×2 (07:51→15:38)
[2022-11-14] MEDS: TRAMADOL HCL 50 MG TABLET PO (07:53)
[2022-11-14] MEDS: INSULIN GLARGINE,HUM.REC.ANLOG 100 UNIT/ML INSULN.PEN 22 UNIT SUBCUT (07:58)
--- NOTE | 2022-11-14 11:51 | PC.SPIRITC ---
I provided visit for support and connection.
[2022-11-14 15:00] VITALS: PULSE 76; RESP 18; TEMP 36.4; O2SAT 94
[2022-11-14 19:52] VITALS: BMI 30.8
[2022-11-15] MEDS: AMLODIPINE 10 MG TABLET PO (07:55)
[2022-11-15] MEDS: FLUOXETINE HCL 20 MG CAPSULE PO (07:55)
[2022-11-15] MEDS: lisinopriL 40 MG TABLET PO (07:55)
[2022-11-15] MEDS: FLUOXETINE HCL 40 MG CAPSULE PO (07:55)
[2022-11-15] MEDS: BUSPIRONE 10 MG TABLET PO ×2 (07:55→19:04)
[2022-11-15] MEDS: METOPROLOL TARTRATE 50 MG TABLET 62.5 MG PO ×2 (07:56→15:21)
[2022-11-15] MEDS: POTASSIUM CHLORIDE 20 MEQ TAB.ER.PRT 40 MEQ PO ×2 (07:57→15:21)
[2022-11-15] MEDS: TRAMADOL HCL 50 MG TABLET PO (07:58)
[2022-11-15] MEDS: INSULIN GLARGINE,HUM.REC.ANLOG 100 UNIT/ML INSULN.PEN 22 UNIT SUBCUT (08:02)
--- NOTE | 2022-11-16 00:55 | PC.NURSE ---
WEEKLY CHARTING WEEK 3 Vital signs reviewed, elevated BP noted, INVENTORY REPRESENTATIVE aware, continues to monitor weekly. Comprehensive care plan reviewed with no changes made. Temporary care plan reviewed. Added toileting to check on first and 3rd rounds at night to remain dry, odor free. Res has +1 bilateral edema to lower legs. Wear Gab socks on AM off Evening. Occasional redness under breast, PRN nystatin powder applied. Skin check done every bath days and during cares. 1 staff assist with all catheter cares, incontinent pad, clothing management and edward cares. Wears blue brief at night.
--- NOTE | 2022-11-16 07:27 | PC.NURSE ---
Weekly Charting, Week 3-Toileting: Comprehensive and temporary care plan reviewed. No changes made. Nothing added to temporary care plan. Resident is usually continent of BM'S, with occasional incontinence. Has a suprapubic catheter connected to the leg bag during the day, emptied by staff. Catheter changed monthly and irrigated by staff every Sunday. Leg and catheter bags changed every 14 days. Resident will call for BM. Uses a medi stand for transfers with one assist. Wears briefs. Pads, edward cares, clothing managed by staff. Vital signs reviewed, BP's varies. Receives Lisinopril & Metoprolol. Continue weekly monitoring & refer as needed. Skin: Has chronic bilateral edema. Wears teds on-am, off-hs. Encourage lower extremities elevation. Suprapubic site cleansed BID with warm, soapy water and covered with dry gauze. Using medicated shampoo for dry scalp.Skin is checked during cares and on bath day.
[2022-11-16] MEDS: INSULIN GLARGINE,HUM.REC.ANLOG 100 UNIT/ML INSULN.PEN 22 UNIT SUBCUT (08:15)
[2022-11-16] MEDS: METOPROLOL TARTRATE 50 MG TABLET 62.5 MG PO ×2 (08:18→15:12)
[2022-11-16] MEDS: POTASSIUM CHLORIDE 20 MEQ TAB.ER.PRT 40 MEQ PO ×2 (08:18→15:12)
[2022-11-16] MEDS: FLUOXETINE HCL 20 MG CAPSULE PO (08:18)
[2022-11-16] MEDS: BUSPIRONE 10 MG TABLET PO ×2 (08:18→19:18)
[2022-11-16] MEDS: TRAMADOL HCL 50 MG TABLET PO (08:18)
[2022-11-16] MEDS: lisinopriL 40 MG TABLET PO (08:18)
[2022-11-16] MEDS: AMLODIPINE 10 MG TABLET PO (08:18)
[2022-11-16] MEDS: FLUOXETINE HCL 40 MG CAPSULE PO (08:18)
[2022-11-17] MEDS: METOPROLOL TARTRATE 50 MG TABLET 62.5 MG PO ×2 (07:34→15:23)
[2022-11-17] MEDS: BUSPIRONE 10 MG TABLET PO ×2 (07:34→19:12)
[2022-11-17] MEDS: AMLODIPINE 10 MG TABLET PO (07:34)
[2022-11-17] MEDS: FLUOXETINE HCL 40 MG CAPSULE PO (07:34)
[2022-11-17] MEDS: POTASSIUM CHLORIDE 20 MEQ TAB.ER.PRT 40 MEQ PO ×2 (07:34→15:24)
[2022-11-17] MEDS: lisinopriL 40 MG TABLET PO (07:34)
[2022-11-17] MEDS: TRAMADOL HCL 50 MG TABLET PO (07:34)
[2022-11-17] MEDS: FLUOXETINE HCL 20 MG CAPSULE PO (07:34)
[2022-11-17] MEDS: INSULIN GLARGINE,HUM.REC.ANLOG 100 UNIT/ML INSULN.PEN 22 UNIT SUBCUT (07:42)
[2022-11-17] MEDS: ACETAMINOPHEN 325 MG TABLET PO (18:35)
[2022-11-18] MEDS: lisinopriL 40 MG TABLET PO (07:51)
[2022-11-18] MEDS: FLUOXETINE HCL 20 MG CAPSULE PO (07:51)
[2022-11-18] MEDS: FLUOXETINE HCL 40 MG CAPSULE PO (07:51)
[2022-11-18] MEDS: AMLODIPINE 10 MG TABLET PO (07:51)
[2022-11-18] MEDS: BUSPIRONE 10 MG TABLET PO ×2 (07:51→19:04)
[2022-11-18] MEDS: METOPROLOL TARTRATE 50 MG TABLET 62.5 MG PO ×2 (07:52→15:17)
[2022-11-18] MEDS: POTASSIUM CHLORIDE 20 MEQ TAB.ER.PRT 40 MEQ PO ×2 (07:52→15:18)
[2022-11-18] MEDS: TRAMADOL HCL 50 MG TABLET PO (07:53)
[2022-11-18] MEDS: INSULIN GLARGINE,HUM.REC.ANLOG 100 UNIT/ML INSULN.PEN 22 UNIT SUBCUT (07:58)
[2022-11-19] MEDS: BUSPIRONE 10 MG TABLET PO ×2 (08:01→19:13)
[2022-11-19] MEDS: FLUOXETINE HCL 40 MG CAPSULE PO (08:01)
[2022-11-19] MEDS: AMLODIPINE 10 MG TABLET PO (08:01)
[2022-11-19] MEDS: FLUOXETINE HCL 20 MG CAPSULE PO (08:02)
[2022-11-19] MEDS: METOPROLOL TARTRATE 50 MG TABLET 62.5 MG PO ×2 (08:02→15:27)
[2022-11-19] MEDS: lisinopriL 40 MG TABLET PO (08:02)
[2022-11-19] MEDS: POTASSIUM CHLORIDE 20 MEQ TAB.ER.PRT 40 MEQ PO ×2 (08:03→15:27)
[2022-11-19] MEDS: TRAMADOL HCL 50 MG TABLET PO (08:05)
[2022-11-19] MEDS: INSULIN GLARGINE,HUM.REC.ANLOG 100 UNIT/ML INSULN.PEN 22 UNIT SUBCUT (08:09)
--- NOTE | 2022-11-19 13:14 | PC.NURSE ---
Provider update: Shredder Picker updating [facility] Triage at this time with provider update regarding resident having redness and yellow/greenish drainage noted from bilateral eyes. Staff have tried providing warm compresses to eyes today though resident continues to have redness and drainage noted. She also states eyes are painful when asked. Vital signs assessed: B/P 168/82, P 65, R 16, T 98.0, O2 sat 96% on RA. Resident has recurrent hx of this problem, last treated for pink eye disease with Polytrim on 08/13/22. Shredder Picker had to leave voicemail with [facility] Triage due to being placed on hold. Awaiting further direction at this time.
--- NOTE | 2022-11-19 13:26 | PC.NURSE ---
Cath change: Routine suprapubic catheter change completed this morning using 20 Fr 10 cc catheter per order in place. Resident tolerated procedure well with no c/o pain/discomfort.
--- NOTE | 2022-11-19 14:24 | PC.NURSE ---
Provider update: FAB Macedo with [facility] Triage returned comic book writer's phone call and was given resident's current set of vital signs and that bilateral eyes are reddened with yellow/green discharge as well as resident reporting discomfort to bilateral eyes when asked. Wildlife Policy Professional also informed manager intermediate that resident has hx of being treated for repeated pink eye infections. Nursing staff note res has nonproductive cough this afternoon though remains afebrile with temp of 98.4. Staff assisted resident into bed to rest. manager intermediate informed comic book writer that REYN[facility] Ulloa is dean of instruction and will fax any new orders over to [facility]. Wildlife Policy Professional gave manager intermediate the fax number to [facility]. Evening staff updated.
[2022-11-19 14:29] VITALS: BP 168/82; PULSE 65; RESP 16; TEMP 36.9; O2SAT 96
[2022-11-20] MEDS: FLUOXETINE HCL 40 MG CAPSULE PO (08:36)
[2022-11-20] MEDS: BUSPIRONE 10 MG TABLET PO ×2 (08:36→19:58)
[2022-11-20] MEDS: INSULIN GLARGINE,HUM.REC.ANLOG 100 UNIT/ML INSULN.PEN 22 UNIT SUBCUT (08:36)
[2022-11-20] MEDS: AMLODIPINE 10 MG TABLET PO (08:36)
[2022-11-20] MEDS: FLUOXETINE HCL 20 MG CAPSULE PO (08:37)
[2022-11-20] MEDS: lisinopriL 40 MG TABLET PO (08:37)
[2022-11-20] MEDS: METOPROLOL TARTRATE 50 MG TABLET 62.5 MG PO ×2 (08:37→15:56)
[2022-11-20] MEDS: POTASSIUM CHLORIDE 20 MEQ TAB.ER.PRT 40 MEQ PO ×2 (08:37→15:56)
[2022-11-20] MEDS: TRAMADOL HCL 50 MG TABLET PO (08:37)
--- NOTE | 2022-11-20 09:52 | PC.NURSE ---
Addendum entered by Cyndy Farley LPN 11/20/22 10:33: Update MOBILE EQUIPMENT SERVICER if getting worse, family will supply baby shampoo Original Note: Order: Fax received with the following order from Ashleigh Ulloa: Baby shampoo 5 drops per 30cc of warm water, gently rub to both eyes, rinse with clean, warm water BID x 14 days.
--- NOTE | 2022-11-20 11:47 | PC.NURSE ---
Status: Was reported that resident was bi-passing urine on the evening/overnight shift. This abstract writer flushed catheter with 60cc along with making tubing not so tight. Urine is now flowing freely.
--- NOTE | 2022-11-20 13:44 | PC.NURSE ---
status: Resident did continue to have a cough with temp of 97.4. Stated that she felt run down
--- NOTE | 2022-11-21 05:42 | PC.NURSE ---
Res continue to have occasional dry cough. afebrile Temp 97.9, noted night sweat. Lung sounds clear in all hinton. denies pain. [place] slightly elevated, cover light blanket.
[2022-11-21] MEDS: AMLODIPINE 10 MG TABLET PO (07:32)
[2022-11-21] MEDS: FLUOXETINE HCL 20 MG CAPSULE PO (07:34)
[2022-11-21] MEDS: BUSPIRONE 10 MG TABLET PO ×2 (07:34→19:50)
[2022-11-21] MEDS: FLUOXETINE HCL 40 MG CAPSULE PO (07:34)
[2022-11-21] MEDS: METOPROLOL TARTRATE 50 MG TABLET 62.5 MG PO ×2 (07:35→15:47)
[2022-11-21] MEDS: lisinopriL 40 MG TABLET PO (07:35)
[2022-11-21] MEDS: INSULIN GLARGINE,HUM.REC.ANLOG 100 UNIT/ML INSULN.PEN 22 UNIT SUBCUT (07:37)
[2022-11-21] MEDS: POTASSIUM CHLORIDE 20 MEQ TAB.ER.PRT 40 MEQ PO ×2 (07:37→15:47)
[2022-11-21] MEDS: TRAMADOL HCL 50 MG TABLET PO (07:37)
--- NOTE | 2022-11-21 12:35 | PC.NURSE ---
Eyes/Order: HEAD FIELD HOCKEY COACH, Artemio here. Updated right eye with increased yellow mattery drainage, left eye red. Resident seen. Order: Erythromycin Ophth Ointment both eyes BID X 5 days.
--- NOTE | 2022-11-21 12:57 | PC.NURSE ---
Eye Treatment: Eye treatment with baby shampoo was not done as her daughter has not brought the shampoo yet, however her eyes was wash with warm towel.
--- NOTE | 2022-11-21 14:45 | PC.PHA1 ---
STONE LAYOUT MARKER PHARMACIST'S MEDICATION REVIEW: MEDICATION MONITORING:Fluoxetine 40 mg and 20 mg daily on AUG (60 mg total) for depression and forms of outburst.? Buspar 10 mg qam and 10 mg hs. IRREGULARITY OR COMMENTS:Patient has eye complication noted in chart, erythromycin ointment ordered today and baby shampoo dilute solution ordered yesterday. Per nursing notes patient's dementia advancing with hallucinations occurring more frequently. SUGGESTED COURSE OF ACTION TAKEN: Current dose of fluoxetine is on high side, could consider GDR in the near future.
[2022-11-21 15:00] VITALS: BP 146/71; PULSE 65; RESP 20; TEMP 37.1; O2SAT 95
[2022-11-21] MEDS: ERYTHROMYCIN OPHTH OINT 3.5 GM 1 APPLIC EYE-BOTH (19:51)
[2022-11-21 22:23] VITALS: BMI 70.2
[2022-11-22] MEDS: AMLODIPINE 10 MG TABLET PO (07:41)
[2022-11-22] MEDS: BUSPIRONE 10 MG TABLET PO ×2 (07:42→19:49)
[2022-11-22] MEDS: lisinopriL 40 MG TABLET PO (07:42)
[2022-11-22] MEDS: FLUOXETINE HCL 20 MG CAPSULE PO (07:42)
[2022-11-22] MEDS: FLUOXETINE HCL 40 MG CAPSULE PO (07:42)
[2022-11-22] MEDS: METOPROLOL TARTRATE 50 MG TABLET 62.5 MG PO ×2 (07:42→15:19)
[2022-11-22] MEDS: POTASSIUM CHLORIDE 20 MEQ TAB.ER.PRT 40 MEQ PO ×2 (07:43→15:19)
[2022-11-22] MEDS: TRAMADOL HCL 50 MG TABLET PO (07:47)
[2022-11-22] MEDS: ERYTHROMYCIN OPHTH OINT 3.5 GM 1 APPLIC EYE-BOTH ×2 (07:48→19:49)
[2022-11-22] MEDS: INSULIN GLARGINE,HUM.REC.ANLOG 100 UNIT/ML INSULN.PEN 22 UNIT SUBCUT (07:54)
--- NOTE | 2022-11-22 13:52 | PC.SPIRITC ---
Per Shaista, she is doing terrible because [she is] not feeling well and has lost her family. I provided redirection, connection, and talked with Ellisjose alejandro about previous birthdays since hers is coming up soon.
[2022-11-22] MEDS: NYSTATIN POWDER 1 APPLIC TOPICAL (22:01)
--- NOTE | 2022-11-23 06:34 | PC.NURSE ---
WEEKLY CHARTING WEEK 4 COMMUNICATION, HEARING/VISION, COGNITION/BEHAVIORS, CLINICAL MONITORING Vital signs, no concerns, continue with weekly monitoring. Comprehensive & temporary care plan reviewed, participation on group activity was added (10/24/22), she attended [facility]. Resident does communicate needs and use the call light. Staff also anticipates, no new issues. ? Visual impairment corrected by glasses, no hearing issues. Resident had diagnosed with depression ,chronic health condition. Nurse administer all medications Mood/Behavior: Buspar increased back to 10mg BID (09/21) ,resident has been having hallucination.? No adverse effects noted. Continue to monitor for changes.
[2022-11-23] MEDS: AMLODIPINE 10 MG TABLET PO (08:02)
[2022-11-23] MEDS: BUSPIRONE 10 MG TABLET PO ×2 (08:03→19:33)
[2022-11-23] MEDS: ERYTHROMYCIN OPHTH OINT 3.5 GM 1 APPLIC EYE-BOTH ×2 (08:03→19:33)
[2022-11-23] MEDS: FLUOXETINE HCL 40 MG CAPSULE PO (08:07)
[2022-11-23] MEDS: METOPROLOL TARTRATE 50 MG TABLET 62.5 MG PO ×2 (08:07→15:18)
[2022-11-23] MEDS: FLUOXETINE HCL 20 MG CAPSULE PO (08:07)
[2022-11-23] MEDS: POTASSIUM CHLORIDE 20 MEQ TAB.ER.PRT 40 MEQ PO ×2 (08:07→15:19)
[2022-11-23] MEDS: lisinopriL 40 MG TABLET PO (08:07)
[2022-11-23] MEDS: TRAMADOL HCL 50 MG TABLET PO (08:08)
[2022-11-23] MEDS: INSULIN GLARGINE,HUM.REC.ANLOG 100 UNIT/ML INSULN.PEN 22 UNIT SUBCUT (08:12)
--- NOTE | 2022-11-23 08:51 | PC.SPIRITC ---
I provided visit for connection and to wish Shaista a Happy Birthday.
--- NOTE | 2022-11-23 13:38 | PC.NURSE ---
Confusion: Increase confusion noted and daughter is aware. Daughter requested alarm on recliner.
--- NOTE | 2022-11-23 13:45 | PC.NURSE ---
Weekly Charting-Week 4: Comprehensive & temporary care plan reviewed, no changes made. Nothing added to temporary care plan. No changes in communication, hearing, vision, or orientation. Resident does communicate needs and use the call light. Staff also anticipates.? Visual impairment corrected by glasses. Chronic health condition stable. Has cognitive impairment. Nurse administer all medications. Has occasional elevated BP's, continue weekly vital signs monitoring and refer to provider as needed. Mood/Behavior: Noted increased confusion r/t dementia. On Buspar increased to 10mg BID.? No adverse effects noted. Continue to monitor for changes.
[2022-11-24] MEDS: INSULIN GLARGINE,HUM.REC.ANLOG 100 UNIT/ML INSULN.PEN 22 UNIT SUBCUT (08:42)
[2022-11-24] MEDS: BUSPIRONE 10 MG TABLET PO ×2 (08:42→19:48)
[2022-11-24] MEDS: AMLODIPINE 10 MG TABLET PO (08:42)
[2022-11-24] MEDS: lisinopriL 40 MG TABLET PO (08:43)
[2022-11-24] MEDS: FLUOXETINE HCL 40 MG CAPSULE PO (08:43)
[2022-11-24] MEDS: METOPROLOL TARTRATE 50 MG TABLET 62.5 MG PO ×2 (08:43→15:54)
[2022-11-24] MEDS: ERYTHROMYCIN OPHTH OINT 3.5 GM 1 APPLIC EYE-BOTH ×2 (08:43→19:48)
[2022-11-24] MEDS: FLUOXETINE HCL 20 MG CAPSULE PO (08:43)
[2022-11-24] MEDS: POTASSIUM CHLORIDE 20 MEQ TAB.ER.PRT 40 MEQ PO ×2 (08:44→15:55)
[2022-11-24] MEDS: TRAMADOL HCL 50 MG TABLET PO (08:47)
--- NOTE | 2022-11-24 13:19 | PC.NURSE ---
Status: Resident ate all of breakfast and 1/2 of lunch. Eyes remain red but not crusty. No behaviors noted or reported.
[2022-11-25] MEDS: AMLODIPINE 10 MG TABLET PO (07:48)
[2022-11-25] MEDS: BUSPIRONE 10 MG TABLET PO ×2 (07:49→19:33)
[2022-11-25] MEDS: FLUOXETINE HCL 40 MG CAPSULE PO (07:50)
[2022-11-25] MEDS: ERYTHROMYCIN OPHTH OINT 3.5 GM 1 APPLIC EYE-BOTH ×2 (07:50→19:33)
[2022-11-25] MEDS: METOPROLOL TARTRATE 50 MG TABLET 62.5 MG PO ×2 (07:51→15:31)
[2022-11-25] MEDS: FLUOXETINE HCL 20 MG CAPSULE PO (07:51)
[2022-11-25] MEDS: lisinopriL 40 MG TABLET PO (07:51)
[2022-11-25] MEDS: POTASSIUM CHLORIDE 20 MEQ TAB.ER.PRT 40 MEQ PO ×2 (07:52→15:31)
[2022-11-25] MEDS: TRAMADOL HCL 50 MG TABLET PO (07:53)
[2022-11-25] MEDS: INSULIN GLARGINE,HUM.REC.ANLOG 100 UNIT/ML INSULN.PEN 22 UNIT SUBCUT (08:49)
[2022-11-26] MEDS: NYSTATIN POWDER 1 APPLIC TOPICAL (07:12)
[2022-11-26] MEDS: INSULIN GLARGINE,HUM.REC.ANLOG 100 UNIT/ML INSULN.PEN 22 UNIT SUBCUT (08:24)
[2022-11-26] MEDS: AMLODIPINE 10 MG TABLET PO (08:24)
[2022-11-26] MEDS: FLUOXETINE HCL 20 MG CAPSULE PO (08:25)
[2022-11-26] MEDS: lisinopriL 40 MG TABLET PO (08:25)
[2022-11-26] MEDS: POTASSIUM CHLORIDE 20 MEQ TAB.ER.PRT 40 MEQ PO ×2 (08:25→15:39)
[2022-11-26] MEDS: FLUOXETINE HCL 40 MG CAPSULE PO (08:25)
[2022-11-26] MEDS: BUSPIRONE 10 MG TABLET PO ×2 (08:25→19:41)
[2022-11-26] MEDS: ERYTHROMYCIN OPHTH OINT 3.5 GM 1 APPLIC EYE-BOTH (08:25)
[2022-11-26] MEDS: METOPROLOL TARTRATE 50 MG TABLET 62.5 MG PO ×2 (08:25→15:38)
[2022-11-26] MEDS: TRAMADOL HCL 50 MG TABLET PO (08:26)
--- NOTE | 2022-11-26 10:19 | PC.NURSE ---
Skin: Was noted that resident has small 0.5cm round open area from shearing. Area washed and Sensa-care applied. Intervention set up
[2022-11-27] MEDS: AMLODIPINE 10 MG TABLET PO (08:14)
[2022-11-27] MEDS: FLUOXETINE HCL 40 MG CAPSULE PO (08:15)
[2022-11-27] MEDS: BUSPIRONE 10 MG TABLET PO ×2 (08:15→19:08)
[2022-11-27] MEDS: lisinopriL 40 MG TABLET PO (08:15)
[2022-11-27] MEDS: METOPROLOL TARTRATE 50 MG TABLET 62.5 MG PO ×2 (08:15→15:44)
[2022-11-27] MEDS: FLUOXETINE HCL 20 MG CAPSULE PO (08:15)
[2022-11-27] MEDS: POTASSIUM CHLORIDE 20 MEQ TAB.ER.PRT 40 MEQ PO ×2 (08:16→15:44)
[2022-11-27] MEDS: TRAMADOL HCL 50 MG TABLET PO (08:16)
[2022-11-27] MEDS: INSULIN GLARGINE,HUM.REC.ANLOG 100 UNIT/ML INSULN.PEN 22 UNIT SUBCUT (08:18)
[2022-11-28] MEDS: AMLODIPINE 10 MG TABLET PO (07:57)
[2022-11-28] MEDS: INSULIN GLARGINE,HUM.REC.ANLOG 100 UNIT/ML INSULN.PEN 22 UNIT SUBCUT (08:02)
[2022-11-28] MEDS: FLUOXETINE HCL 40 MG CAPSULE PO (08:02)
[2022-11-28] MEDS: FLUOXETINE HCL 20 MG CAPSULE PO (08:02)
[2022-11-28] MEDS: BUSPIRONE 10 MG TABLET PO ×2 (08:02→19:15)
[2022-11-28] MEDS: TRAMADOL HCL 50 MG TABLET PO (08:03)
[2022-11-28] MEDS: lisinopriL 40 MG TABLET PO (08:03)
[2022-11-28] MEDS: METOPROLOL TARTRATE 50 MG TABLET 62.5 MG PO ×2 (08:03→16:10)
[2022-11-28] MEDS: POTASSIUM CHLORIDE 20 MEQ TAB.ER.PRT 40 MEQ PO ×2 (08:03→16:10)
[2022-11-28 15:00] VITALS: BP 145/77; PULSE 62; RESP 16; TEMP 37; O2SAT 99
[2022-11-28 16:00] VITALS: BMI 30.8
--- NOTE | 2022-11-28 21:45 | PC.NURSE ---
Skin assessment post bath: Redness noted upper abdomen. Sensicare/nystatin powder applied
[2022-11-29] MEDS: AMLODIPINE 10 MG TABLET PO (07:42)
[2022-11-29] MEDS: BUSPIRONE 10 MG TABLET PO ×2 (07:42→19:45)
[2022-11-29] MEDS: FLUOXETINE HCL 40 MG CAPSULE PO (07:43)
[2022-11-29] MEDS: lisinopriL 40 MG TABLET PO (07:43)
[2022-11-29] MEDS: FLUOXETINE HCL 20 MG CAPSULE PO (07:43)
[2022-11-29] MEDS: METOPROLOL TARTRATE 50 MG TABLET 62.5 MG PO ×2 (07:43→15:50)
[2022-11-29] MEDS: POTASSIUM CHLORIDE 20 MEQ TAB.ER.PRT 40 MEQ PO ×2 (07:46→15:50)
[2022-11-29] MEDS: TRAMADOL HCL 50 MG TABLET PO (07:48)
[2022-11-29] MEDS: INSULIN GLARGINE,HUM.REC.ANLOG 100 UNIT/ML INSULN.PEN 22 UNIT SUBCUT (07:52)
[2022-11-29] MEDS: NYSTATIN POWDER 1 APPLIC TOPICAL (21:33)
[2022-11-30] MEDS: INSULIN GLARGINE,HUM.REC.ANLOG 100 UNIT/ML INSULN.PEN 22 UNIT SUBCUT (08:26)
[2022-11-30] MEDS: AMLODIPINE 10 MG TABLET PO (08:26)
[2022-11-30] MEDS: FLUOXETINE HCL 40 MG CAPSULE PO (08:27)
[2022-11-30] MEDS: METOPROLOL TARTRATE 50 MG TABLET 62.5 MG PO ×2 (08:27→15:28)
[2022-11-30] MEDS: TRAMADOL HCL 50 MG TABLET PO (08:27)
[2022-11-30] MEDS: lisinopriL 40 MG TABLET PO (08:27)
[2022-11-30] MEDS: POTASSIUM CHLORIDE 20 MEQ TAB.ER.PRT 40 MEQ PO ×2 (08:27→15:28)
[2022-11-30] MEDS: FLUOXETINE HCL 20 MG CAPSULE PO (08:27)
[2022-11-30] MEDS: BUSPIRONE 10 MG TABLET PO ×2 (08:27→19:20)
[2022-12-01] MEDS: NYSTATIN POWDER 1 APPLIC TOPICAL (07:11)
[2022-12-01] MEDS: AMLODIPINE 10 MG TABLET PO (08:12)
[2022-12-01] MEDS: FLUOXETINE HCL 20 MG CAPSULE PO (08:12)
[2022-12-01] MEDS: FLUOXETINE HCL 40 MG CAPSULE PO (08:12)
[2022-12-01] MEDS: BUSPIRONE 10 MG TABLET PO ×2 (08:12→19:37)
[2022-12-01] MEDS: INSULIN GLARGINE,HUM.REC.ANLOG 100 UNIT/ML INSULN.PEN 22 UNIT SUBCUT (08:12)
[2022-12-01] MEDS: METOPROLOL TARTRATE 50 MG TABLET 62.5 MG PO ×2 (08:13→16:01)
[2022-12-01] MEDS: lisinopriL 40 MG TABLET PO (08:13)
[2022-12-01] MEDS: POTASSIUM CHLORIDE 20 MEQ TAB.ER.PRT 40 MEQ PO ×2 (08:13→16:01)
[2022-12-01] MEDS: TRAMADOL HCL 50 MG TABLET PO (08:14)
[2022-12-01] MEDS: MAGNESIUM HYDROXIDE 30 ML ORAL.SUSP PO (08:14)
[2022-12-02] VITALS (7 sets, daily range): BP systolic 129–162; BP diastolic 68–76; PULSE 58–63; RESP 16–20; TEMP 36.4–36.9; O2SAT 97–100
[2022-12-02] MEDS: AMLODIPINE 10 MG TABLET PO (07:40)
[2022-12-02] MEDS: FLUOXETINE HCL 40 MG CAPSULE PO (07:40)
[2022-12-02] MEDS: BUSPIRONE 10 MG TABLET PO ×2 (07:40→19:10)
[2022-12-02] MEDS: lisinopriL 40 MG TABLET PO (07:41)
[2022-12-02] MEDS: METOPROLOL TARTRATE 50 MG TABLET 62.5 MG PO ×2 (07:41→15:39)
[2022-12-02] MEDS: FLUOXETINE HCL 20 MG CAPSULE PO (07:41)
[2022-12-02] MEDS: POTASSIUM CHLORIDE 20 MEQ TAB.ER.PRT 40 MEQ PO ×2 (07:43→15:39)
[2022-12-02] MEDS: TRAMADOL HCL 50 MG TABLET PO (07:46)
[2022-12-02] MEDS: INSULIN GLARGINE,HUM.REC.ANLOG 100 UNIT/ML INSULN.PEN 22 UNIT SUBCUT (07:49)
--- NOTE | 2022-12-02 17:45 | PC.NURSE ---
Fall: Vitals and Neuros are WNL and Resident is up in her wheel chair, assist to the dinning room, did complain of left knee pain during transfer, relief with rest, ROM intact to left upper and lower extremities decrease to right upper and lower extremities.
--- NOTE | 2022-12-02 17:47 | LTC.FALL ---
[facility] Fall Note: o Fall Date:12/02/2022 o Fall Time:1745 o What happened?Resident attempted to get out of her recliner and feel forward o Who found the resident and who responded? Douglas and Nurses o What was the resident doing? Attempting to self transfer from her recliner o How the resident was found (knees, left side, arm under them), any hazards (cords, objects, nonskid slippers) brakes on? Proper equipment? In a prone position with hand under her o Did you assess for head trauma, spinal injuries, skeletal injuries, neurological changes and status, and head and neck pain? What did you find? yes and No injuries or bruising noted o Did you assess ROM in shoulders, elbows, hips, knees, any other affected areas, unless there is suspected spinal injury. ROM intact to right upper and lower extremities decrease to left upper and lower extremities o Did you Assess for pain or discomfort? yes Resident did verbalize pain with transfer in RLE o What are the injuries and how are they being treated? No injuries noted at present o How was the resident transferred from the floor? with three assist and a Gissell lift o Did you call the MD or put a note in the MIXED CROP AND LIVESTOCK FARM WORKER book? Yes o Enter vital signs. T 98.4 P 63 R 20 BP 151/74 SPO2 98% on room air o Did you notify family? Yes o What was the root cause of the fall? Why did it happen? Alarm in recliner did not function properly o Create an IMMEDIATE INTERVENTION to ensure that this won't immediately happen again. (Put in temporary care plan too) o Complete Safety report and huddle (now one form) o If resident is seen in ED or fractured something, note that you started a [facility] Report process. Instructions are at the East nurse's desk in a red binder labeled VA report. NA
--- NOTE | 2022-12-02 18:50 | PC.NURSE ---
Fall: Resident up in her wheel chair at the nurses station after supper for increase monitoring, alert and oriented per baseline, did complain of headache PRN Tylenol 650 mg given and was effective, vitals and neuros remains stable
[2022-12-02] MEDS: ACETAMINOPHEN 325 MG TABLET PO (20:36)
--- NOTE | 2022-12-02 20:45 | LTC.FALL ---
[facility] Fall Note: o Fall Date: o Fall Time: o What happened? o Who found the resident and who responded? o What was the resident doing? o How the resident was found (knees, left side, arm under them), any hazards (cords, objects, nonskid slippers) brakes on? Proper equipment? o Did you assess for head trauma, spinal injuries, skeletal injuries, neurological changes and status, and head and neck pain? What did you find? o Did you assess ROM in shoulders, elbows, hips, knees, any other affected areas, unless there is suspected spinal injury. o Did you Assess for pain or discomfort? o What are the injuries and how are they being treated? o How was the resident transferred from the floor? o Did you call the MD or put a note in the ABA TUTOR book? o Enter vital signs. o Did you notify family? o What was the root cause of the fall? Why did it happen? o Create an IMMEDIATE INTERVENTION to ensure that this won't immediately happen again. (Put in temporary care plan too) o Complete Safety report and huddle (now one form) o If resident is seen in ED or fractured something, note that you started a [facility] Report process. Instructions are at the East nurse's desk in a red binder labeled VA report.
--- NOTE | 2022-12-02 21:45 | PC.NURSE ---
Fall: Resident is resting in bed at this time, no verbal or non verbal indications of pain, alert and oriented per baseline, vitals and neuros intact
[2022-12-03 01:15] VITALS: BP 146/76; PULSE 86; RESP 16; TEMP 35.8; O2SAT 6
--- NOTE | 2022-12-03 03:15 | PC.NURSE ---
Addendum entered by Valeria Guerrero LPN 12/03/22 05:38: Resident did not .. Original Note: Fall follow up Resident was sleeping quietly in bed , neuro intact . Resident is cont complaining of any discomfort , no apparent bruise on face. Vitals are normal, will continue to monitor.
[2022-12-03 05:15] VITALS: BP 158/74; PULSE 86; PULSE 96; RESP 16; TEMP 36.6; O2SAT 96
--- NOTE | 2022-12-03 05:38 | PC.NURSE ---
FAll follow up Resident slept on and off for the rest of the night. Neuro checked , intact. She is alert and awake this morning, complaining about headache. Will follow up with medication.
[2022-12-03] MEDS: AMLODIPINE 10 MG TABLET PO (07:32)
[2022-12-03] MEDS: METOPROLOL TARTRATE 50 MG TABLET 62.5 MG PO ×2 (07:33→15:59)
[2022-12-03] MEDS: FLUOXETINE HCL 40 MG CAPSULE PO (07:33)
[2022-12-03] MEDS: FLUOXETINE HCL 20 MG CAPSULE PO (07:33)
[2022-12-03] MEDS: BUSPIRONE 10 MG TABLET PO ×2 (07:33→19:01)
[2022-12-03] MEDS: lisinopriL 40 MG TABLET PO (07:33)
[2022-12-03] MEDS: POTASSIUM CHLORIDE 20 MEQ TAB.ER.PRT 40 MEQ PO ×2 (07:34→15:59)
[2022-12-03] MEDS: TRAMADOL HCL 50 MG TABLET PO (07:37)
[2022-12-03] MEDS: INSULIN GLARGINE,HUM.REC.ANLOG 100 UNIT/ML INSULN.PEN 22 UNIT SUBCUT (07:41)
[2022-12-03 09:15] VITALS: BP 119/74; PULSE 62; RESP 16; TEMP 36.3; O2SAT 99
--- NOTE | 2022-12-03 09:19 | PC.NURSE ---
Fall followup note: Resident noted to be alert & oriented x 4 and vital signs completed: B/P 119/74, P 62, R 16, T 97.3, O2 sat 99% on RA. Resident denies pain when asked at this time. PERRLA. Hand grasps noted to be equal bilaterally and ROM remains intact. Resident in room resting in recliner at this time and declining to go to [facility]utheran at 1015 when offered. Call light within reach.
[2022-12-03 13:15] VITALS: BP 129/76; PULSE 61; RESP 16; TEMP 36.8; O2SAT 99
--- NOTE | 2022-12-03 13:32 | PC.NURSE ---
Fall followup note: Resident remains alert & oriented to correct person, place, time and situation. Hand grasps remain equal bilaterally and ROM remains intact. No verbal or nonverbal complaints of pain noted when resting in wheelchair at this time. PERRLA. VS: B/P 129/76, P 61, R 16, T 98.3, O2 sat 99% on RA.
--- NOTE | 2022-12-03 13:50 | PC.NURSE ---
Behavior note: Resident noted to have stool on her fingers this morning as it appears she dug in brief and also touched her suprapubic catheter dressing. Sweet Pickled Fruit Maker assisted resident with washing hands with soap and water and also cleansing suprapubic site with soap and water after removing soiled dressing. New dressing applied after patting site dry.
[2022-12-03 16:34] VITALS: BP 135/78; PULSE 65; RESP 16; TEMP 36.6; O2SAT 98
--- NOTE | 2022-12-03 16:35 | PC.NURSE ---
S/P Fall: Resident is up in her wheel chair at this time, alert and oriented with episodes of intermittent confusion, no verbal or non verbal indications of pain and staff continue to monitor for safety and assist as needed
[2022-12-03 21:15] VITALS: BP 135/70; PULSE 60; RESP 16; TEMP 36.6; O2SAT 98
[2022-12-03] MEDS: NYSTATIN POWDER 1 APPLIC TOPICAL (21:23)
--- NOTE | 2022-12-03 21:29 | PC.NURSE ---
S/P Fall: Vitals and neuros remains stable and Resident is resting in bed st this time, no verbal or non verbal indications of pain, ROM intact to left upper and lower extremities decrease to right upper and lower extremities.
[2022-12-04] VITALS (7 sets, daily range): BP systolic 108–144; BP diastolic 66–80; PULSE 59–79; RESP 16–20; TEMP 36.2–37.1; O2SAT 94–98
--- NOTE | 2022-12-04 05:19 | PC.NURSE ---
FALL FOLLOW UP Resident night was fine. She was alert, moved all extremities well, hands grasps equal, pupils react. Vitals are normal , no concerns an she did not complain about headache or any malaise.
[2022-12-04] MEDS: NYSTATIN POWDER 1 APPLIC TOPICAL (06:43)
[2022-12-04] MEDS: BUSPIRONE 10 MG TABLET PO ×2 (07:35→20:42)
[2022-12-04] MEDS: AMLODIPINE 10 MG TABLET PO (07:35)
[2022-12-04] MEDS: FLUOXETINE HCL 40 MG CAPSULE PO (07:36)
[2022-12-04] MEDS: lisinopriL 40 MG TABLET PO (07:36)
[2022-12-04] MEDS: FLUOXETINE HCL 20 MG CAPSULE PO (07:36)
[2022-12-04] MEDS: METOPROLOL TARTRATE 50 MG TABLET 62.5 MG PO ×2 (07:36→15:45)
[2022-12-04] MEDS: POTASSIUM CHLORIDE 20 MEQ TAB.ER.PRT 40 MEQ PO ×2 (07:38→15:46)
[2022-12-04] MEDS: TRAMADOL HCL 50 MG TABLET PO (07:39)
[2022-12-04] MEDS: INSULIN GLARGINE,HUM.REC.ANLOG 100 UNIT/ML INSULN.PEN 22 UNIT SUBCUT (07:45)
--- NOTE | 2022-12-04 10:26 | PC.NURSE ---
Fall followup note for 914 neuros: B/P 108/76, P 61, R 18, T 97.2, O2 sat 98% on RA. Resident denies pain when asked. Hand grasps equal bilaterally and ROM intact. PERRLA. Resident denies pain when asked today. Resident noted to be alert & oriented x 4.
--- NOTE | 2022-12-04 13:43 | PC.NURSE ---
Fall followup note: Resident remains alert & oriented x 4 and hand grasps remain equal bilaterally. ROM intact. PERRLA. No c/o pain noted this shift. Vital signs completed and documented.
[2022-12-04] MEDS: LOPERAMIDE HCL 2 MG CAPSULE PO (13:48)
[2022-12-04] MEDS: ONDANSETRON ODT 4 MG TAB PO (18:00)
--- NOTE | 2022-12-04 21:53 | PC.NURSE ---
Resident had emesis x 4 and diahreah (bright yellow) x 2 this shift. 18:00 PRN Zofran administered which was effective.
[2022-12-05 01:15] VITALS: BP 135/65; PULSE 64; RESP 18; TEMP 36.6; O2SAT 95
[2022-12-05 05:15] VITALS: BP 144/72; PULSE 61; RESP 17; TEMP 36.4; O2SAT 98
--- NOTE | 2022-12-05 05:40 | PC.NURSE ---
Fall F/U Resident did not complain of any pain. Neuro, ROM and VSS within normal resident baseline. She slept good the whole shift. No complain of being nauseous.
[2022-12-05] MEDS: BUSPIRONE 10 MG TABLET PO ×2 (07:25→19:02)
[2022-12-05] MEDS: FLUOXETINE HCL 40 MG CAPSULE PO (07:25)
[2022-12-05] MEDS: FLUOXETINE HCL 20 MG CAPSULE PO (07:25)
[2022-12-05] MEDS: AMLODIPINE 10 MG TABLET PO (07:25)
[2022-12-05] MEDS: lisinopriL 40 MG TABLET PO (07:25)
[2022-12-05] MEDS: METOPROLOL TARTRATE 50 MG TABLET 62.5 MG PO ×2 (07:25→15:20)
[2022-12-05] MEDS: POTASSIUM CHLORIDE 20 MEQ TAB.ER.PRT 40 MEQ PO ×2 (07:26→15:21)
[2022-12-05] MEDS: TRAMADOL HCL 50 MG TABLET PO (07:28)
[2022-12-05] MEDS: INSULIN GLARGINE,HUM.REC.ANLOG 100 UNIT/ML INSULN.PEN 22 UNIT SUBCUT (07:34)
[2022-12-05 09:15] VITALS: BP 122/62; PULSE 60; RESP 16; TEMP 36.7; O2SAT 98
--- NOTE | 2022-12-05 09:59 | PC.NURSE ---
Fall followup note: Vital signs completed: B/P 122/62, P 60, R 16, T 98.0, O2 sat 98% on RA. Resident denies pain when asked. Hand grasps remain equal bilaterally and ROM remains intact. PERRLA. Resident remains alert & oriented x 4. Staff have placed resident on contact precautions this morning due to 4 episodes of emesis last evening and 5 loose stools throughout the day. Charge nurse, DON and BANK GUARD updated. Resident states she feels ok today, just feels tired when asked. No episodes of emesis or loose stools have been reported so far this shift. Resident was served breakfast in room.
--- NOTE | 2022-12-05 12:34 | PC.NURSE ---
Status/Order: Emesis and loose stools 6/5 noted by TOOLMAKER GRADE THREE. Order: Loperamide HCl 2mg PO Q2H PRN.
[2022-12-05 13:15] VITALS: BP 112/58; PULSE 59; RESP 16; TEMP 36.6; O2SAT 95
--- NOTE | 2022-12-05 13:35 | PC.NURSE ---
Fall followup note: Vital signs completed B/P 112/58, P 59, R 16, T 97.9, O2 sat 95% on RA. Hand grasps remain equal bilaterally and resident has been alert & oriented x 4. ROM remains intact and resident continues to have no c/o pain.
--- NOTE | 2022-12-05 13:37 | PC.NURSE ---
Fall followup note: HUBER.
[2022-12-05 17:15] VITALS: BP 138/72; PULSE 59; RESP 20; TEMP 36.4; O2SAT 98
--- NOTE | 2022-12-05 17:37 | PC.NURSE ---
S/P Fall: Vitals and neuros are stable and Resident is alert and oriented per baseline, no verbal or non verbal indications of pain, and no injuries or bruising noted from fall, staff continue to monitor for safety and assist as needed.
[2022-12-05 21:15] VITALS: BP 138/72; PULSE 59; TEMP 36.4; O2SAT 98
--- NOTE | 2022-12-05 21:25 | PC.NURSE ---
Bath: Resident schedule bath and skin check done, blanchable redness noted to bottom with cream applied, scabbed area to left buttocks, edema to lower extremities, jeff socks applied in the AM and remove at HS
[2022-12-05 22:12] VITALS: BMI 76.1
[2022-12-06] MEDS: BUSPIRONE 10 MG TABLET PO ×2 (07:36→19:22)
[2022-12-06] MEDS: FLUOXETINE HCL 20 MG CAPSULE PO (07:36)
[2022-12-06] MEDS: FLUOXETINE HCL 40 MG CAPSULE PO (07:36)
[2022-12-06] MEDS: AMLODIPINE 10 MG TABLET PO (07:36)
[2022-12-06] MEDS: METOPROLOL TARTRATE 50 MG TABLET 62.5 MG PO ×2 (07:37→15:05)
[2022-12-06] MEDS: lisinopriL 40 MG TABLET PO (07:37)
[2022-12-06] MEDS: POTASSIUM CHLORIDE 20 MEQ TAB.ER.PRT 40 MEQ PO ×2 (07:38→15:07)
[2022-12-06] MEDS: TRAMADOL HCL 50 MG TABLET PO (07:39)
[2022-12-06] MEDS: INSULIN GLARGINE,HUM.REC.ANLOG 100 UNIT/ML INSULN.PEN 22 UNIT SUBCUT (07:44)
--- NOTE | 2022-12-07 07:07 | PC.NURSE ---
WEEKLY CHARTING WEEK1 PAIN AND ADL`S Vital signs reviewed - minor BP elevations at times. Continue to monitor and update provider as needed. Temporary and comprehensive care plan reviewed - no change. History of chronic pain , receiving Pregabalin 300mg BID and Tramadol 50mg daily for pain management. Extensive assist of 1 with dressing, grooming, and bathing. She is able to complete oral cares independently after set-up. Staff complete as needed. Receives a regular diet with regular texture and thin liquids. Receives large portions per resident request. Eats independently after setup. Resident does not have any difficulty chewing or swallowing.?
[2022-12-07] MEDS: FLUOXETINE HCL 40 MG CAPSULE PO (07:50)
[2022-12-07] MEDS: BUSPIRONE 10 MG TABLET PO ×2 (07:50→19:24)
[2022-12-07] MEDS: AMLODIPINE 10 MG TABLET PO (07:50)
[2022-12-07] MEDS: INSULIN GLARGINE,HUM.REC.ANLOG 100 UNIT/ML INSULN.PEN 22 UNIT SUBCUT (07:50)
[2022-12-07] MEDS: METOPROLOL TARTRATE 50 MG TABLET 62.5 MG PO (07:51)
[2022-12-07] MEDS: lisinopriL 40 MG TABLET PO (07:51)
[2022-12-07] MEDS: FLUOXETINE HCL 20 MG CAPSULE PO (07:51)
[2022-12-07] MEDS: TRAMADOL HCL 50 MG TABLET PO ×2 (07:52→12:03)
[2022-12-07] MEDS: POTASSIUM CHLORIDE 20 MEQ TAB.ER.PRT 40 MEQ PO ×2 (07:52→15:27)
--- NOTE | 2022-12-07 12:36 | PC.NURSE ---
Addendum entered by Marry Santizo RN 12/07/22 12:52: Blood sugar monitoring changed to weekly by BIOPROCESS ENGINEER d/t stability. Original Note: Recert Visit: Resident seen by Artemio FLAHERTY. Orders reviewed and renewed of 75 days with changes. Order: Decrease Metoprolol 62.5 mg to 50 mg daily, d/c Tramadol daily.
--- NOTE | 2022-12-07 13:25 | PC.NURSE ---
Pain Management: Resident c/o of abdomen pain at 1230 and PRN Tramadol was given .Noted resident right ankle was also swollen and it was elevated.
[2022-12-07 16:00] VITALS: BP 158/73
--- NOTE | 2022-12-07 21:33 | PC.NURSE ---
Weekly Charting: Week 1: ADLS: temporary and permanent care plan reviewed and no changes made, BP monitoring continue daily with episode of elevated BP, rest of vitals are intact, alert and oriented no complain of pain, does have order for Lyrica for pain management, need assist of one with dressing, bathing, grooming and oral care, need set up assist with meals.
[2022-12-08] MEDS: TRAMADOL HCL 50 MG TABLET PO ×2 (08:40→21:16)
[2022-12-08] MEDS: AMLODIPINE 10 MG TABLET PO (08:41)
[2022-12-08] MEDS: INSULIN GLARGINE,HUM.REC.ANLOG 100 UNIT/ML INSULN.PEN 22 UNIT SUBCUT (08:41)
[2022-12-08] MEDS: lisinopriL 40 MG TABLET PO (08:42)
[2022-12-08] MEDS: BUSPIRONE 10 MG TABLET PO ×2 (08:42→19:16)
[2022-12-08] MEDS: FLUOXETINE HCL 40 MG CAPSULE PO (08:42)
[2022-12-08] MEDS: METOPROLOL SUCCINATE (XL) 50 MG TAB PO (08:42)
[2022-12-08] MEDS: FLUOXETINE HCL 20 MG CAPSULE PO (08:42)
[2022-12-08] MEDS: POTASSIUM CHLORIDE 20 MEQ TAB.ER.PRT 40 MEQ PO ×2 (08:43→16:10)
[2022-12-08 16:00] VITALS: BP 142/72
--- NOTE | 2022-12-08 22:35 | PC.NURSE ---
Pain: Resident c/o left foot achy pain and rated 4/10. Was given Ultram @ 21:16 and elevated legs. Resident sleeping at this time.
[2022-12-09] MEDS: AMLODIPINE 10 MG TABLET PO (08:34)
[2022-12-09] MEDS: POTASSIUM CHLORIDE 20 MEQ TAB.ER.PRT 40 MEQ PO ×2 (08:35→15:20)
[2022-12-09] MEDS: BUSPIRONE 10 MG TABLET PO ×2 (08:35→19:05)
[2022-12-09] MEDS: INSULIN GLARGINE,HUM.REC.ANLOG 100 UNIT/ML INSULN.PEN 22 UNIT SUBCUT (08:35)
[2022-12-09] MEDS: FLUOXETINE HCL 40 MG CAPSULE PO (08:35)
[2022-12-09] MEDS: FLUOXETINE HCL 20 MG CAPSULE PO (08:35)
[2022-12-09] MEDS: METOPROLOL SUCCINATE (XL) 50 MG TAB PO (08:35)
[2022-12-09] MEDS: lisinopriL 40 MG TABLET PO (08:35)
[2022-12-09 16:00] VITALS: BP 130/75
[2022-12-09] MEDS: TRAMADOL HCL 50 MG TABLET PO (21:11)
--- NOTE | 2022-12-09 22:06 | PC.NURSE ---
Pain: Resident c/o being achy all over. Rated pain 5/10. Tramadol given 2110. Resident sleeping upon reassessment.
[2022-12-10] MEDS: AMLODIPINE 10 MG TABLET PO (08:23)
[2022-12-10] MEDS: FLUOXETINE HCL 40 MG CAPSULE PO (08:24)
[2022-12-10] MEDS: lisinopriL 40 MG TABLET PO (08:24)
[2022-12-10] MEDS: INSULIN GLARGINE,HUM.REC.ANLOG 100 UNIT/ML INSULN.PEN 22 UNIT SUBCUT (08:24)
[2022-12-10] MEDS: BUSPIRONE 10 MG TABLET PO ×2 (08:24→19:02)
[2022-12-10] MEDS: FLUOXETINE HCL 20 MG CAPSULE PO (08:24)
[2022-12-10] MEDS: POTASSIUM CHLORIDE 20 MEQ TAB.ER.PRT 40 MEQ PO ×2 (08:25→15:20)
[2022-12-10] MEDS: METOPROLOL SUCCINATE (XL) 50 MG TAB PO (08:25)
[2022-12-10] MEDS: MAGNESIUM HYDROXIDE 30 ML ORAL.SUSP PO (10:32)
[2022-12-10 16:00] VITALS: BP 154/75
[2022-12-11] MEDS: BUSPIRONE 10 MG TABLET PO ×2 (07:45→19:55)
[2022-12-11] MEDS: AMLODIPINE 10 MG TABLET PO (07:45)
[2022-12-11] MEDS: FLUOXETINE HCL 20 MG CAPSULE PO (07:46)
[2022-12-11] MEDS: METOPROLOL SUCCINATE (XL) 50 MG TAB PO (07:46)
[2022-12-11] MEDS: lisinopriL 40 MG TABLET PO (07:46)
[2022-12-11] MEDS: POTASSIUM CHLORIDE 20 MEQ TAB.ER.PRT 40 MEQ PO ×2 (07:46→15:43)
[2022-12-11] MEDS: FLUOXETINE HCL 40 MG CAPSULE PO (07:46)
[2022-12-11] MEDS: INSULIN GLARGINE,HUM.REC.ANLOG 100 UNIT/ML INSULN.PEN 22 UNIT SUBCUT (08:24)
[2022-12-11 16:00] VITALS: BP 126/84
[2022-12-12] MEDS: BUSPIRONE 10 MG TABLET PO ×2 (07:46→19:06)
[2022-12-12] MEDS: AMLODIPINE 10 MG TABLET PO (07:46)
[2022-12-12] MEDS: FLUOXETINE HCL 40 MG CAPSULE PO (07:46)
[2022-12-12] MEDS: FLUOXETINE HCL 20 MG CAPSULE PO (07:47)
[2022-12-12] MEDS: METOPROLOL SUCCINATE (XL) 50 MG TAB PO (07:47)
[2022-12-12] MEDS: lisinopriL 40 MG TABLET PO (07:47)
[2022-12-12] MEDS: POTASSIUM CHLORIDE 20 MEQ TAB.ER.PRT 40 MEQ PO ×2 (07:49→15:19)
[2022-12-12] MEDS: INSULIN GLARGINE,HUM.REC.ANLOG 100 UNIT/ML INSULN.PEN 22 UNIT SUBCUT (07:50)
[2022-12-12 15:00] VITALS: BP 130/68; PULSE 66; RESP 18; TEMP 36.3; O2SAT 97
[2022-12-12 16:00] VITALS: BP 130/68
--- NOTE | 2022-12-12 21:41 | PC.NURSE ---
Bath: Resident schedule bath and skin audit done, edema noted to bilateral lower extremities with TEDS socks applied in the AM and off at HS, dressing change done to S/P site decrease redness noted to groin
[2022-12-12 22:16] VITALS: BMI 63.6
[2022-12-13] MEDS: BUSPIRONE 10 MG TABLET PO ×2 (07:49→19:21)
[2022-12-13] MEDS: lisinopriL 40 MG TABLET PO (07:49)
[2022-12-13] MEDS: AMLODIPINE 10 MG TABLET PO (07:49)
[2022-12-13] MEDS: METOPROLOL SUCCINATE (XL) 50 MG TAB PO (07:49)
[2022-12-13] MEDS: FLUOXETINE HCL 40 MG CAPSULE PO (07:49)
[2022-12-13] MEDS: FLUOXETINE HCL 20 MG CAPSULE PO (07:49)
[2022-12-13] MEDS: INSULIN GLARGINE,HUM.REC.ANLOG 100 UNIT/ML INSULN.PEN 22 UNIT SUBCUT (07:49)
[2022-12-13] MEDS: POTASSIUM CHLORIDE 20 MEQ TAB.ER.PRT 40 MEQ PO ×2 (07:50→15:22)
--- NOTE | 2022-12-13 14:38 | PC.SPIRITC ---
I provided visit for connection and support while walking on the patio.
--- NOTE | 2022-12-14 00:59 | PC.NURSE ---
Weekly Charting: Week2 Reviewed resident's recent vital signs, no concerns noted. Reviewed temporary and comprehensive care plans, no new changes made or noted. Resident requires extensive assist of 1 with EZ stand for transfers. Resident is non-ambulatory and cannot propel themselves independently in wheelchair. Resident is unable to reposition themselves in bed, 1/4 side rails used during repositioning only. Resident is at high risk for falls due to increasing confusion. Resident's most recent fall was 12/02/22. Interventions to prevent falls include bed locked and in low position, non skid footwear on at all times, call light within reach, and falling star magnet. Resident is not on ambulation or ROM program at this time.
[2022-12-14] MEDS: BUSPIRONE 10 MG TABLET PO ×2 (08:10→19:04)
[2022-12-14] MEDS: INSULIN GLARGINE,HUM.REC.ANLOG 100 UNIT/ML INSULN.PEN 22 UNIT SUBCUT (08:10)
[2022-12-14] MEDS: FLUOXETINE HCL 40 MG CAPSULE PO (08:10)
[2022-12-14] MEDS: AMLODIPINE 10 MG TABLET PO (08:10)
[2022-12-14] MEDS: FLUOXETINE HCL 20 MG CAPSULE PO (08:11)
[2022-12-14] MEDS: METOPROLOL SUCCINATE (XL) 50 MG TAB PO (08:11)
[2022-12-14] MEDS: lisinopriL 40 MG TABLET PO (08:11)
[2022-12-14] MEDS: POTASSIUM CHLORIDE 20 MEQ TAB.ER.PRT 40 MEQ PO ×2 (08:11→15:41)
--- NOTE | 2022-12-14 10:25 | PC.NURSE ---
Weekly Charting, Week 2 - MOBILITY: Comprehensive and temporary care plan reviewed. No changes made, nothing added to temporary care plan. Resident is non ambulatory. One assist, medi stand for all transfers. Staff propel to all destinations.? Staff assist with bed positioning.? No alarms. Vital signs reviewed, few elevated BP. 6/8 Metoprol decreased. Continue weekly monitoring & refer to provider as needed. Fall: No falls the past month. Remains a high fall risk according to assessment done on 10/24/22. Fall interventions: call light within reach, bed in low position with brakes locked. gripper socks for all transfers, falling star magnet.
[2022-12-15] MEDS: AMLODIPINE 10 MG TABLET PO (07:25)
[2022-12-15] MEDS: FLUOXETINE HCL 20 MG CAPSULE PO (07:25)
[2022-12-15] MEDS: INSULIN GLARGINE,HUM.REC.ANLOG 100 UNIT/ML INSULN.PEN 22 UNIT SUBCUT (07:25)
[2022-12-15] MEDS: BUSPIRONE 10 MG TABLET PO ×2 (07:25→19:26)
[2022-12-15] MEDS: FLUOXETINE HCL 40 MG CAPSULE PO (07:25)
[2022-12-15] MEDS: lisinopriL 40 MG TABLET PO (07:26)
[2022-12-15] MEDS: METOPROLOL SUCCINATE (XL) 50 MG TAB PO (07:26)
[2022-12-15] MEDS: POTASSIUM CHLORIDE 20 MEQ TAB.ER.PRT 40 MEQ PO ×2 (07:27→15:32)
[2022-12-16] MEDS: AMLODIPINE 10 MG TABLET PO (07:45)
[2022-12-16] MEDS: FLUOXETINE HCL 20 MG CAPSULE PO (07:46)
[2022-12-16] MEDS: FLUOXETINE HCL 40 MG CAPSULE PO (07:46)
[2022-12-16] MEDS: METOPROLOL SUCCINATE (XL) 50 MG TAB PO (07:46)
[2022-12-16] MEDS: BUSPIRONE 10 MG TABLET PO ×2 (07:46→19:28)
[2022-12-16] MEDS: lisinopriL 40 MG TABLET PO (07:46)
[2022-12-16] MEDS: POTASSIUM CHLORIDE 20 MEQ TAB.ER.PRT 40 MEQ PO ×2 (07:47→16:03)
[2022-12-16] MEDS: INSULIN GLARGINE,HUM.REC.ANLOG 100 UNIT/ML INSULN.PEN 22 UNIT SUBCUT (07:54)
[2022-12-17] MEDS: INSULIN GLARGINE,HUM.REC.ANLOG 100 UNIT/ML INSULN.PEN 22 UNIT SUBCUT (07:13)
[2022-12-17] MEDS: AMLODIPINE 10 MG TABLET PO (07:13)
[2022-12-17] MEDS: FLUOXETINE HCL 20 MG CAPSULE PO (07:14)
[2022-12-17] MEDS: FLUOXETINE HCL 40 MG CAPSULE PO (07:14)
[2022-12-17] MEDS: METOPROLOL SUCCINATE (XL) 50 MG TAB PO (07:14)
[2022-12-17] MEDS: lisinopriL 40 MG TABLET PO (07:14)
[2022-12-17] MEDS: BUSPIRONE 10 MG TABLET PO ×2 (07:14→19:12)
[2022-12-17] MEDS: POTASSIUM CHLORIDE 20 MEQ TAB.ER.PRT 40 MEQ PO ×2 (07:17→15:24)
[2022-12-17] MEDS: NYSTATIN POWDER 1 APPLIC TOPICAL (07:28)
[2022-12-18] MEDS: NYSTATIN POWDER 1 APPLIC TOPICAL (07:30)
[2022-12-18] MEDS: AMLODIPINE 10 MG TABLET PO (08:43)
[2022-12-18] MEDS: FLUOXETINE HCL 20 MG CAPSULE PO (08:44)
[2022-12-18] MEDS: METOPROLOL SUCCINATE (XL) 50 MG TAB PO (08:44)
[2022-12-18] MEDS: lisinopriL 40 MG TABLET PO (08:44)
[2022-12-18] MEDS: INSULIN GLARGINE,HUM.REC.ANLOG 100 UNIT/ML INSULN.PEN 22 UNIT SUBCUT (08:44)
[2022-12-18] MEDS: BUSPIRONE 10 MG TABLET PO ×2 (08:44→19:10)
[2022-12-18] MEDS: FLUOXETINE HCL 40 MG CAPSULE PO (08:44)
[2022-12-18] MEDS: POTASSIUM CHLORIDE 20 MEQ TAB.ER.PRT 40 MEQ PO ×2 (08:45→15:53)
[2022-12-19] MEDS: BUSPIRONE 10 MG TABLET PO ×2 (07:40→19:00)
[2022-12-19] MEDS: AMLODIPINE 10 MG TABLET PO (07:40)
[2022-12-19] MEDS: FLUOXETINE HCL 40 MG CAPSULE PO (07:41)
[2022-12-19] MEDS: FLUOXETINE HCL 20 MG CAPSULE PO (07:42)
[2022-12-19] MEDS: METOPROLOL SUCCINATE (XL) 50 MG TAB PO (07:42)
[2022-12-19] MEDS: lisinopriL 40 MG TABLET PO (07:42)
[2022-12-19] MEDS: POTASSIUM CHLORIDE 20 MEQ TAB.ER.PRT 40 MEQ PO ×2 (07:43→15:51)
[2022-12-19] MEDS: INSULIN GLARGINE,HUM.REC.ANLOG 100 UNIT/ML INSULN.PEN 22 UNIT SUBCUT (07:49)
--- NOTE | 2022-12-19 10:21 | PC.NURSE ---
Procedure note: Suprapubic catheter change completed this morning per scheduled order using sterile technique and 20 Fr catheter with 10 cc balloon. Resident tolerated procedure well with no c/o discomfort.
[2022-12-19 15:00] VITALS: BP 122/70; PULSE 60; RESP 18; TEMP 36.4; O2SAT 98; BMI 30.4
--- NOTE | 2022-12-19 22:26 | PC.NURSE ---
Bath: Resident schedule bath and body audit done, decrease redness noted to groin, dressing change done to S/P site edema noted to ankles and feet, rest of skin is intact
[2022-12-20] MEDS: AMLODIPINE 10 MG TABLET PO (07:24)
[2022-12-20] MEDS: METOPROLOL SUCCINATE (XL) 50 MG TAB PO (07:24)
[2022-12-20] MEDS: lisinopriL 40 MG TABLET PO (07:24)
[2022-12-20] MEDS: BUSPIRONE 10 MG TABLET PO ×2 (07:24→19:05)
[2022-12-20] MEDS: FLUOXETINE HCL 40 MG CAPSULE PO (07:24)
[2022-12-20] MEDS: FLUOXETINE HCL 20 MG CAPSULE PO (07:24)
[2022-12-20] MEDS: POTASSIUM CHLORIDE 20 MEQ TAB.ER.PRT 40 MEQ PO ×2 (07:26→15:12)
[2022-12-20] MEDS: INSULIN GLARGINE,HUM.REC.ANLOG 100 UNIT/ML INSULN.PEN 22 UNIT SUBCUT (07:31)
[2022-12-21] MEDS: BUSPIRONE 10 MG TABLET PO ×2 (07:45→19:24)
[2022-12-21] MEDS: AMLODIPINE 10 MG TABLET PO (07:45)
[2022-12-21] MEDS: lisinopriL 40 MG TABLET PO (07:46)
[2022-12-21] MEDS: FLUOXETINE HCL 20 MG CAPSULE PO (07:46)
[2022-12-21] MEDS: FLUOXETINE HCL 40 MG CAPSULE PO (07:46)
[2022-12-21] MEDS: METOPROLOL SUCCINATE (XL) 50 MG TAB PO (07:55)
[2022-12-21] MEDS: POTASSIUM CHLORIDE 20 MEQ TAB.ER.PRT 40 MEQ PO ×2 (07:55→15:56)
[2022-12-21] MEDS: INSULIN GLARGINE,HUM.REC.ANLOG 100 UNIT/ML INSULN.PEN 22 UNIT SUBCUT (07:56)
--- NOTE | 2022-12-21 13:51 | PC.NURSE ---
Staff noted small amount of blood while cleaning after BM ? hemorrhoid. Staff to continue monitor.
--- NOTE | 2022-12-21 17:18 | PC.NURSE ---
Weekly Charting: Week 3: Temporary and permanent care plan reviewed and no changes made, vitals remains stable but does have episodes of low pulse rate, continent of bladder due to S/P cath, incontinent of bowel wears large depends and need staff assist with incontinence management, have bilateral lower extremities edema with GONSALO socks applied in the AM and remove at HS, Nystatin powder applied to groin PRN for redness and supra pubic dressing change BID.
[2022-12-22] MEDS: BUSPIRONE 10 MG TABLET PO ×2 (08:24→19:12)
[2022-12-22] MEDS: FLUOXETINE HCL 20 MG CAPSULE PO (08:24)
[2022-12-22] MEDS: FLUOXETINE HCL 40 MG CAPSULE PO (08:24)
[2022-12-22] MEDS: INSULIN GLARGINE,HUM.REC.ANLOG 100 UNIT/ML INSULN.PEN 22 UNIT SUBCUT (08:24)
[2022-12-22] MEDS: AMLODIPINE 10 MG TABLET PO (08:24)
[2022-12-22] MEDS: lisinopriL 40 MG TABLET PO (08:25)
[2022-12-22] MEDS: METOPROLOL SUCCINATE (XL) 50 MG TAB PO (08:25)
[2022-12-22] MEDS: POTASSIUM CHLORIDE 20 MEQ TAB.ER.PRT 40 MEQ PO ×2 (08:25→16:02)
--- NOTE | 2022-12-22 21:52 | PC.NURSE ---
Resident had no further rectal bleeding this shift. Will continue to monitor.
[2022-12-23] MEDS: AMLODIPINE 10 MG TABLET PO (08:36)
[2022-12-23] MEDS: METOPROLOL SUCCINATE (XL) 50 MG TAB PO (08:37)
[2022-12-23] MEDS: FLUOXETINE HCL 20 MG CAPSULE PO (08:37)
[2022-12-23] MEDS: INSULIN GLARGINE,HUM.REC.ANLOG 100 UNIT/ML INSULN.PEN 22 UNIT SUBCUT (08:37)
[2022-12-23] MEDS: lisinopriL 40 MG TABLET PO (08:37)
[2022-12-23] MEDS: BUSPIRONE 10 MG TABLET PO ×2 (08:37→19:29)
[2022-12-23] MEDS: POTASSIUM CHLORIDE 20 MEQ TAB.ER.PRT 40 MEQ PO ×2 (08:37→15:10)
[2022-12-23] MEDS: FLUOXETINE HCL 40 MG CAPSULE PO (08:37)
[2022-12-23] MEDS: TRAMADOL HCL 50 MG TABLET PO (20:07)
[2022-12-24] MEDS: NYSTATIN POWDER 1 APPLIC TOPICAL ×2 (07:25→21:43)
[2022-12-24] MEDS: BUSPIRONE 10 MG TABLET PO ×2 (08:23→19:21)
[2022-12-24] MEDS: AMLODIPINE 10 MG TABLET PO (08:23)
[2022-12-24] MEDS: INSULIN GLARGINE,HUM.REC.ANLOG 100 UNIT/ML INSULN.PEN 22 UNIT SUBCUT (08:23)
[2022-12-24] MEDS: POTASSIUM CHLORIDE 20 MEQ TAB.ER.PRT 40 MEQ PO ×2 (08:24→15:17)
[2022-12-24] MEDS: FLUOXETINE HCL 20 MG CAPSULE PO (08:24)
[2022-12-24] MEDS: METOPROLOL SUCCINATE (XL) 50 MG TAB PO (08:24)
[2022-12-24] MEDS: lisinopriL 40 MG TABLET PO (08:24)
[2022-12-24] MEDS: FLUOXETINE HCL 40 MG CAPSULE PO (08:24)
[2022-12-25] MEDS: NYSTATIN POWDER 1 APPLIC TOPICAL (08:12)
[2022-12-25] MEDS: FLUOXETINE HCL 40 MG CAPSULE PO (08:23)
[2022-12-25] MEDS: FLUOXETINE HCL 20 MG CAPSULE PO (08:23)
[2022-12-25] MEDS: INSULIN GLARGINE,HUM.REC.ANLOG 100 UNIT/ML INSULN.PEN 22 UNIT SUBCUT (08:23)
[2022-12-25] MEDS: BUSPIRONE 10 MG TABLET PO ×2 (08:23→19:13)
[2022-12-25] MEDS: lisinopriL 40 MG TABLET PO (08:23)
[2022-12-25] MEDS: AMLODIPINE 10 MG TABLET PO (08:23)
[2022-12-25] MEDS: METOPROLOL SUCCINATE (XL) 50 MG TAB PO (08:23)
[2022-12-25] MEDS: POTASSIUM CHLORIDE 20 MEQ TAB.ER.PRT 40 MEQ PO ×2 (08:24→15:40)
[2022-12-26] MEDS: FLUOXETINE HCL 20 MG CAPSULE PO (07:33)
[2022-12-26] MEDS: BUSPIRONE 10 MG TABLET PO ×2 (07:33→19:15)
[2022-12-26] MEDS: AMLODIPINE 10 MG TABLET PO (07:33)
[2022-12-26] MEDS: FLUOXETINE HCL 40 MG CAPSULE PO (07:33)
[2022-12-26] MEDS: METOPROLOL SUCCINATE (XL) 50 MG TAB PO (07:34)
[2022-12-26] MEDS: lisinopriL 40 MG TABLET PO (07:34)
[2022-12-26] MEDS: POTASSIUM CHLORIDE 20 MEQ TAB.ER.PRT 40 MEQ PO ×2 (07:35→15:52)
[2022-12-26] MEDS: INSULIN GLARGINE,HUM.REC.ANLOG 100 UNIT/ML INSULN.PEN 22 UNIT SUBCUT (07:40)
[2022-12-26 15:00] VITALS: BP 146/77; PULSE 60; RESP 18; TEMP 36.8; O2SAT 92
[2022-12-27] MEDS: AMLODIPINE 10 MG TABLET PO (07:42)
[2022-12-27] MEDS: BUSPIRONE 10 MG TABLET PO ×2 (07:42→19:00)
[2022-12-27] MEDS: lisinopriL 40 MG TABLET PO (07:43)
[2022-12-27] MEDS: FLUOXETINE HCL 40 MG CAPSULE PO (07:43)
[2022-12-27] MEDS: METOPROLOL SUCCINATE (XL) 50 MG TAB PO (07:43)
[2022-12-27] MEDS: FLUOXETINE HCL 20 MG CAPSULE PO (07:43)
[2022-12-27] MEDS: POTASSIUM CHLORIDE 20 MEQ TAB.ER.PRT 40 MEQ PO ×2 (07:44→15:20)
[2022-12-27] MEDS: INSULIN GLARGINE,HUM.REC.ANLOG 100 UNIT/ML INSULN.PEN 22 UNIT SUBCUT (07:47)
--- NOTE | 2022-12-27 08:52 | PC.PHA1 ---
INTELLIGENCE CLERK PHARMACIST'S MEDICATION REVIEW: MEDICATION MONITORING:Fluoxetine 60 mg daily IRREGULARITY OR COMMENTS: After review of most recent nursing and provider notes, no medication related issues noted. Patient has been declining and medications that are no longer indicated have been stopped as well as medications like metoprolol adjusted for changing vitals. Agree that decreasing fluoxetine at this time would is clinically contraindicated. SUGGESTED COURSE OF ACTION TAKEN:No medication recommendations this review.
--- NOTE | 2022-12-27 16:28 | PC.SPIRITC ---
Late entry from December 26, 2022: I provided visit outside for connection and support.
--- NOTE | 2022-12-28 01:01 | PC.NURSE ---
Weekly Charting Week 4: Vital signs reviewed. Few BP reading elevated, SECURITY COMPLIANCE SPECIALIST aware, Continue to monitor weekly, update provided as needed. Comprehensive and temporary care plan reviewed with no changes made. No behavior noted. Noted episode of Hallucination and increase confusion. Has cognitive impairment d/t dementia. Receives Buspar 10mg with no adverse effects noted. No changes in communication, hearing, vision, or orientation. Resident does communicate needs and use the call light. Staff also anticipates.? Visual impairment corrected by glasses. Chronic health condition stable.
--- NOTE | 2022-12-28 07:25 | PC.NURSE ---
Weekly Charting-Week 4: Comprehensive & temporary care plan reviewed, no changes made. Nothing added to temporary care plan. No changes in communication, hearing, vision, or orientation. Resident does communicate needs and use the call light. Staff also anticipates.? Visual impairment corrected by glasses. Chronic health condition stable. Has cognitive impairment r/t dementia. Nurse administer all medications. Has occasional elevated BP's, continue weekly vital signs monitoring and refer to provider as needed. Mood/Behavior: Noted increased confusion r/t dementia. On Buspar 10mg BID, & Fluoxetine 60 mg daily. No adverse effects noted. No changes in medications. Continue to monitor for changes in mood/behavior.
[2022-12-28] MEDS: NYSTATIN POWDER 1 APPLIC TOPICAL ×2 (07:40→20:35)
[2022-12-28] MEDS: BUSPIRONE 10 MG TABLET PO ×2 (08:32→20:35)
[2022-12-28] MEDS: INSULIN GLARGINE,HUM.REC.ANLOG 100 UNIT/ML INSULN.PEN 22 UNIT SUBCUT (08:32)
[2022-12-28] MEDS: AMLODIPINE 10 MG TABLET PO (08:32)
[2022-12-28] MEDS: FLUOXETINE HCL 20 MG CAPSULE PO (08:33)
[2022-12-28] MEDS: lisinopriL 40 MG TABLET PO (08:33)
[2022-12-28] MEDS: FLUOXETINE HCL 40 MG CAPSULE PO (08:33)
[2022-12-28] MEDS: METOPROLOL SUCCINATE (XL) 50 MG TAB PO (08:34)
[2022-12-28] MEDS: POTASSIUM CHLORIDE 20 MEQ TAB.ER.PRT 40 MEQ PO ×2 (08:34→15:31)
[2022-12-29] MEDS: BUSPIRONE 10 MG TABLET PO ×2 (07:37→19:36)
[2022-12-29] MEDS: FLUOXETINE HCL 40 MG CAPSULE PO (07:37)
[2022-12-29] MEDS: AMLODIPINE 10 MG TABLET PO (07:37)
[2022-12-29] MEDS: lisinopriL 40 MG TABLET PO (07:38)
[2022-12-29] MEDS: METOPROLOL SUCCINATE (XL) 50 MG TAB PO (07:38)
[2022-12-29] MEDS: FLUOXETINE HCL 20 MG CAPSULE PO (07:38)
[2022-12-29] MEDS: POTASSIUM CHLORIDE 20 MEQ TAB.ER.PRT 40 MEQ PO ×2 (07:39→15:16)
[2022-12-29] MEDS: NYSTATIN POWDER 1 APPLIC TOPICAL ×2 (07:40→20:59)
[2022-12-29] MEDS: INSULIN GLARGINE,HUM.REC.ANLOG 100 UNIT/ML INSULN.PEN 22 UNIT SUBCUT (07:42)
[2022-12-30] MEDS: AMLODIPINE 10 MG TABLET PO (07:48)
[2022-12-30] MEDS: FLUOXETINE HCL 20 MG CAPSULE PO (07:48)
[2022-12-30] MEDS: FLUOXETINE HCL 40 MG CAPSULE PO (07:48)
[2022-12-30] MEDS: METOPROLOL SUCCINATE (XL) 50 MG TAB PO (07:48)
[2022-12-30] MEDS: BUSPIRONE 10 MG TABLET PO ×2 (07:48→20:22)
[2022-12-30] MEDS: lisinopriL 40 MG TABLET PO (07:48)
[2022-12-30] MEDS: POTASSIUM CHLORIDE 20 MEQ TAB.ER.PRT 40 MEQ PO ×2 (07:49→15:32)
[2022-12-30] MEDS: INSULIN GLARGINE,HUM.REC.ANLOG 100 UNIT/ML INSULN.PEN 22 UNIT SUBCUT (07:53)
[2022-12-30] MEDS: NYSTATIN POWDER 1 APPLIC TOPICAL (10:34)
[2022-12-31] MEDS: FLUOXETINE HCL 40 MG CAPSULE PO (07:22)
[2022-12-31] MEDS: BUSPIRONE 10 MG TABLET PO ×2 (07:22→19:03)
[2022-12-31] MEDS: AMLODIPINE 10 MG TABLET PO (07:22)
[2022-12-31] MEDS: METOPROLOL SUCCINATE (XL) 50 MG TAB PO (07:23)
[2022-12-31] MEDS: FLUOXETINE HCL 20 MG CAPSULE PO (07:23)
[2022-12-31] MEDS: lisinopriL 40 MG TABLET PO (07:23)
[2022-12-31] MEDS: POTASSIUM CHLORIDE 20 MEQ TAB.ER.PRT 40 MEQ PO ×2 (07:24→15:21)
[2022-12-31] MEDS: INSULIN GLARGINE,HUM.REC.ANLOG 100 UNIT/ML INSULN.PEN 22 UNIT SUBCUT (07:31)
--- NOTE | 2022-12-31 16:31 | PC.SPIRITC ---
Terrazzo Layer provided supportive visit to resident. Resident processed feelings of grief and loss about the of her younger sister about four months ago. Resident misses their regular phone conversations. Resident expressed feelings of loneliness in general and welcomed tours captain to say a prayer. Terrazzo Layer provided emotional support, affirmation and prayer.
[2023-01-01] MEDS: AMLODIPINE 10 MG TABLET PO (07:30)
[2023-01-01] MEDS: BUSPIRONE 10 MG TABLET PO ×2 (07:31→19:50)
[2023-01-01] MEDS: METOPROLOL SUCCINATE (XL) 50 MG TAB PO (07:31)
[2023-01-01] MEDS: lisinopriL 40 MG TABLET PO (07:31)
[2023-01-01] MEDS: FLUOXETINE HCL 40 MG CAPSULE PO (07:31)
[2023-01-01] MEDS: FLUOXETINE HCL 20 MG CAPSULE PO (07:31)
[2023-01-01] MEDS: POTASSIUM CHLORIDE 20 MEQ TAB.ER.PRT 40 MEQ PO ×2 (07:32→16:34)
[2023-01-01] MEDS: INSULIN GLARGINE,HUM.REC.ANLOG 100 UNIT/ML INSULN.PEN 22 UNIT SUBCUT (07:37)
[2023-01-02] MEDS: FLUOXETINE HCL 20 MG CAPSULE PO (07:24)
[2023-01-02] MEDS: FLUOXETINE HCL 40 MG CAPSULE PO (07:24)
[2023-01-02] MEDS: BUSPIRONE 10 MG TABLET PO ×2 (07:24→20:03)
[2023-01-02] MEDS: AMLODIPINE 10 MG TABLET PO (07:24)
[2023-01-02] MEDS: lisinopriL 40 MG TABLET PO (07:24)
[2023-01-02] MEDS: METOPROLOL SUCCINATE (XL) 50 MG TAB PO (07:25)
[2023-01-02] MEDS: POTASSIUM CHLORIDE 20 MEQ TAB.ER.PRT 40 MEQ PO ×2 (07:31→15:08)
[2023-01-02] MEDS: INSULIN GLARGINE,HUM.REC.ANLOG 100 UNIT/ML INSULN.PEN 22 UNIT SUBCUT (07:31)
[2023-01-02 15:00] VITALS: BP 143/79; PULSE 64; RESP 16; TEMP 36.9; O2SAT 95
[2023-01-02 16:00] VITALS: BMI 30.9
[2023-01-03] MEDS: BUSPIRONE 10 MG TABLET PO ×2 (07:38→19:25)
[2023-01-03] MEDS: AMLODIPINE 10 MG TABLET PO (07:38)
[2023-01-03] MEDS: FLUOXETINE HCL 40 MG CAPSULE PO (07:38)
[2023-01-03] MEDS: POTASSIUM CHLORIDE 20 MEQ TAB.ER.PRT 40 MEQ PO ×2 (07:39→15:30)
[2023-01-03] MEDS: lisinopriL 40 MG TABLET PO (07:39)
[2023-01-03] MEDS: FLUOXETINE HCL 20 MG CAPSULE PO (07:39)
[2023-01-03] MEDS: METOPROLOL SUCCINATE (XL) 50 MG TAB PO (07:39)
[2023-01-03] MEDS: INSULIN GLARGINE,HUM.REC.ANLOG 100 UNIT/ML INSULN.PEN 22 UNIT SUBCUT (07:44)
--- NOTE | 2023-01-04 01:13 | PC.NURSE ---
WEEKLY CHARTING WEEK1? PAIN AND ADL`S Vital signs reviewed - minor BP elevations at times. Continue to monitor and update provider as needed. Temporary and comprehensive care plan reviewed - no change. History of chronic pain , receiving Pregabalin 300mg BID and Tramadol 50mg daily for pain management. Extensive assist of 1 with dressing, grooming, and bathing. She is able to complete oral cares independently after set-up. Staff complete as needed. Receives a regular diet with regular texture and thin liquids. Receives large portions per resident request. Eats independently after setup.? Resident does not have any difficulty chewing or swallowing.?
--- NOTE | 2023-01-04 07:17 | PC.NURSE ---
Weekly Charting, Week 1-ADL'S: Comprehensive and temporary care plan reviewed. No changes made and nothing added to temporary care plan.Resident needs extensive assist of 1 with dressing, grooming and bathing. Encourage to participate as much as she is able. Does oral cares after set up. Staff complete as needed. Independent with feeding after set up. Is on regular diet, regular texture, thin liquids, large portions per her request. No problems with chewing/swallowing reported. Vital signs reviewed, occasional elevated BP's. Continue with weekly monitoring and refer to provider as needed. 12/07 Accu checks changed to weekly d/t stability. Pain: Has chronic pain controlled with Lyrica 300mg BID. And Ultram 50mg BID PRN & has used occasionally with relief. She is able to verbalize need for pain.
[2023-01-04] MEDS: FLUOXETINE HCL 40 MG CAPSULE PO (07:48)
[2023-01-04] MEDS: FLUOXETINE HCL 20 MG CAPSULE PO (07:48)
[2023-01-04] MEDS: METOPROLOL SUCCINATE (XL) 50 MG TAB PO (07:48)
[2023-01-04] MEDS: BUSPIRONE 10 MG TABLET PO ×2 (07:48→19:13)
[2023-01-04] MEDS: lisinopriL 40 MG TABLET PO (07:48)
[2023-01-04] MEDS: AMLODIPINE 10 MG TABLET PO (07:48)
[2023-01-04] MEDS: POTASSIUM CHLORIDE 20 MEQ TAB.ER.PRT 40 MEQ PO ×2 (07:51→15:16)
[2023-01-04] MEDS: INSULIN GLARGINE,HUM.REC.ANLOG 100 UNIT/ML INSULN.PEN 22 UNIT SUBCUT (07:53)
[2023-01-05] MEDS: AMLODIPINE 10 MG TABLET PO (08:29)
[2023-01-05] MEDS: BUSPIRONE 10 MG TABLET PO ×2 (08:29→20:06)
[2023-01-05] MEDS: FLUOXETINE HCL 40 MG CAPSULE PO (08:29)
[2023-01-05] MEDS: INSULIN GLARGINE,HUM.REC.ANLOG 100 UNIT/ML INSULN.PEN 22 UNIT SUBCUT (08:29)
[2023-01-05] MEDS: METOPROLOL SUCCINATE (XL) 50 MG TAB PO (08:30)
[2023-01-05] MEDS: lisinopriL 40 MG TABLET PO (08:30)
[2023-01-05] MEDS: POTASSIUM CHLORIDE 20 MEQ TAB.ER.PRT 40 MEQ PO ×2 (08:30→15:17)
[2023-01-05] MEDS: FLUOXETINE HCL 20 MG CAPSULE PO (08:30)
[2023-01-06] MEDS: NYSTATIN POWDER 1 APPLIC TOPICAL ×2 (07:00→21:55)
[2023-01-06] MEDS: AMLODIPINE 10 MG TABLET PO (08:34)
[2023-01-06] MEDS: INSULIN GLARGINE,HUM.REC.ANLOG 100 UNIT/ML INSULN.PEN 22 UNIT SUBCUT (08:35)
[2023-01-06] MEDS: METOPROLOL SUCCINATE (XL) 50 MG TAB PO (08:36)
[2023-01-06] MEDS: lisinopriL 40 MG TABLET PO (08:36)
[2023-01-06] MEDS: BUSPIRONE 10 MG TABLET PO ×2 (08:36→19:39)
[2023-01-06] MEDS: FLUOXETINE HCL 40 MG CAPSULE PO (08:36)
[2023-01-06] MEDS: POTASSIUM CHLORIDE 20 MEQ TAB.ER.PRT 40 MEQ PO ×2 (08:36→15:14)
[2023-01-06] MEDS: FLUOXETINE HCL 20 MG CAPSULE PO (08:36)
--- NOTE | 2023-01-06 09:58 | PC.NURSE ---
Skin: Redness noted to edward-area this morning. Intervention started.
[2023-01-07] MEDS: AMLODIPINE 10 MG TABLET PO (08:40)
[2023-01-07] MEDS: INSULIN GLARGINE,HUM.REC.ANLOG 100 UNIT/ML INSULN.PEN 22 UNIT SUBCUT (08:41)
[2023-01-07] MEDS: FLUOXETINE HCL 40 MG CAPSULE PO (08:41)
[2023-01-07] MEDS: FLUOXETINE HCL 20 MG CAPSULE PO (08:41)
[2023-01-07] MEDS: BUSPIRONE 10 MG TABLET PO ×2 (08:41→19:15)
[2023-01-07] MEDS: lisinopriL 40 MG TABLET PO (08:41)
[2023-01-07] MEDS: METOPROLOL SUCCINATE (XL) 50 MG TAB PO (08:41)
[2023-01-07] MEDS: POTASSIUM CHLORIDE 20 MEQ TAB.ER.PRT 40 MEQ PO ×2 (08:41→15:31)
[2023-01-07] MEDS: NYSTATIN POWDER 1 APPLIC TOPICAL (21:43)
[2023-01-08] MEDS: INSULIN GLARGINE,HUM.REC.ANLOG 100 UNIT/ML INSULN.PEN 22 UNIT SUBCUT (08:09)
[2023-01-08] MEDS: AMLODIPINE 10 MG TABLET PO (08:12)
[2023-01-08] MEDS: FLUOXETINE HCL 40 MG CAPSULE PO (08:12)
[2023-01-08] MEDS: BUSPIRONE 10 MG TABLET PO ×2 (08:12→19:52)
[2023-01-08] MEDS: POTASSIUM CHLORIDE 20 MEQ TAB.ER.PRT 40 MEQ PO ×2 (08:12→15:57)
[2023-01-08] MEDS: lisinopriL 40 MG TABLET PO (08:12)
[2023-01-08] MEDS: METOPROLOL SUCCINATE (XL) 50 MG TAB PO (08:12)
[2023-01-08] MEDS: FLUOXETINE HCL 20 MG CAPSULE PO (08:12)
[2023-01-09] MEDS: FLUOXETINE HCL 40 MG CAPSULE PO (08:08)
[2023-01-09] MEDS: BUSPIRONE 10 MG TABLET PO ×2 (08:08→19:25)
[2023-01-09] MEDS: AMLODIPINE 10 MG TABLET PO (08:08)
[2023-01-09] MEDS: lisinopriL 40 MG TABLET PO (08:08)
[2023-01-09] MEDS: FLUOXETINE HCL 20 MG CAPSULE PO (08:08)
[2023-01-09] MEDS: METOPROLOL SUCCINATE (XL) 50 MG TAB PO (08:08)
[2023-01-09] MEDS: POTASSIUM CHLORIDE 20 MEQ TAB.ER.PRT 40 MEQ PO ×2 (08:09→16:00)
[2023-01-09] MEDS: INSULIN GLARGINE,HUM.REC.ANLOG 100 UNIT/ML INSULN.PEN 22 UNIT SUBCUT (08:14)
[2023-01-09 15:00] VITALS: BP 154/79; PULSE 63; RESP 18; TEMP 36.7; O2SAT 98
[2023-01-09 16:00] VITALS: BMI 28.3
[2023-01-10] MEDS: AMLODIPINE 10 MG TABLET PO (07:48)
[2023-01-10] MEDS: FLUOXETINE HCL 40 MG CAPSULE PO (07:49)
[2023-01-10] MEDS: BUSPIRONE 10 MG TABLET PO ×2 (07:49→19:14)
[2023-01-10] MEDS: METOPROLOL SUCCINATE (XL) 50 MG TAB PO (07:49)
[2023-01-10] MEDS: lisinopriL 40 MG TABLET PO (07:49)
[2023-01-10] MEDS: FLUOXETINE HCL 20 MG CAPSULE PO (07:49)
[2023-01-10] MEDS: POTASSIUM CHLORIDE 20 MEQ TAB.ER.PRT 40 MEQ PO ×2 (07:49→15:33)
[2023-01-10] MEDS: INSULIN GLARGINE,HUM.REC.ANLOG 100 UNIT/ML INSULN.PEN 22 UNIT SUBCUT (07:49)
--- NOTE | 2023-01-11 00:48 | PC.NURSE ---
Weekly Charting Week 2. Mobility. Vital signs reviewed. Few elevated BP, Continue weekly vitals monitoring, update Provider as needed. Comprehensive and temporary care plan reviewed with no changes made. Resident requires assist of 1 staff assist with the use of easy stand for transfer all times, 1 assist with bed mobility, not on ambulation program. Staff propel to all destinations. No alarms. Staff assist with bed positioning.? No alarms. Fall: 1x falls the past month. Res is high fall risk according to assessment done on 10/24/22. Fall interventions: call light within reach, bed in low position with brakes locked. gripper socks for all transfers, falling star magnet. chair alarm.
--- NOTE | 2023-01-11 06:44 | PC.NURSE ---
WEEKLY CHARTING-WEEK 2-MOBILITY: Comprehensive and temporary care plan reviewed. No changes made, nothing added to temporary care plan. Resident is non ambulatory. One assist for all her cares and she uses medi stand for all transfers. Staff propel to all destinations.? Staff assist with bed positioning.? No alarms. Vital signs reviewed, no concerns. Continue weekly monitoring. Fall: Resident had a fall on the 12/02/22 when she attempted self-transfer. No injuries. Implemented chair alarm to monitor her positioning in recliner and hourly check as resident tend to self-transfer herself. She remains a high fall risk according to assessment done on 10/24/22. Fall interventions: call light within reach, bed in low position with brakes locked. gripper socks for all transfers, falling star mag and continues reminder to use the call light for help.
[2023-01-11] MEDS: FLUOXETINE HCL 40 MG CAPSULE PO (08:06)
[2023-01-11] MEDS: POTASSIUM CHLORIDE 20 MEQ TAB.ER.PRT 40 MEQ PO ×2 (08:06→15:48)
[2023-01-11] MEDS: BUSPIRONE 10 MG TABLET PO ×2 (08:06→19:13)
[2023-01-11] MEDS: INSULIN GLARGINE,HUM.REC.ANLOG 100 UNIT/ML INSULN.PEN 22 UNIT SUBCUT (08:06)
[2023-01-11] MEDS: FLUOXETINE HCL 20 MG CAPSULE PO (08:06)
[2023-01-11] MEDS: lisinopriL 40 MG TABLET PO (08:06)
[2023-01-11] MEDS: AMLODIPINE 10 MG TABLET PO (08:06)
[2023-01-11] MEDS: METOPROLOL SUCCINATE (XL) 50 MG TAB PO (08:06)
--- NOTE | 2023-01-11 12:56 | PC.NURSE ---
Seen by REYNOLD Ulloa. Ordered to apply shampoo and warm wash cloth to affected eye(s) daily due to chronic redness/drainage.
[2023-01-12] MEDS: POTASSIUM CHLORIDE 20 MEQ TAB.ER.PRT 40 MEQ PO ×2 (07:11→15:31)
[2023-01-12] MEDS: lisinopriL 40 MG TABLET PO (07:11)
[2023-01-12] MEDS: AMLODIPINE 10 MG TABLET PO (07:11)
[2023-01-12] MEDS: FLUOXETINE HCL 20 MG CAPSULE PO (07:11)
[2023-01-12] MEDS: METOPROLOL SUCCINATE (XL) 50 MG TAB PO (07:11)
[2023-01-12] MEDS: FLUOXETINE HCL 40 MG CAPSULE PO (07:11)
[2023-01-12] MEDS: BUSPIRONE 10 MG TABLET PO ×2 (07:11→19:20)
[2023-01-12] MEDS: INSULIN GLARGINE,HUM.REC.ANLOG 100 UNIT/ML INSULN.PEN 22 UNIT SUBCUT (08:36)
--- NOTE | 2023-01-13 05:50 | PC.NURSE ---
Urine: Resident had 300ml of urine in her overnight bag and the ANISH reported a scant amount of bypass urine in her brief.
--- NOTE | 2023-01-13 06:33 | PC.NURSE ---
Bowel note: ANISH reports resident had a moderate BM yesterday (01/12/23) and is therefore not on bowel protocol today.
[2023-01-13] MEDS: FLUOXETINE HCL 40 MG CAPSULE PO (07:49)
[2023-01-13] MEDS: AMLODIPINE 10 MG TABLET PO (07:49)
[2023-01-13] MEDS: BUSPIRONE 10 MG TABLET PO ×2 (07:49→19:42)
[2023-01-13] MEDS: METOPROLOL SUCCINATE (XL) 50 MG TAB PO (07:50)
[2023-01-13] MEDS: FLUOXETINE HCL 20 MG CAPSULE PO (07:50)
[2023-01-13] MEDS: lisinopriL 40 MG TABLET PO (07:50)
[2023-01-13] MEDS: POTASSIUM CHLORIDE 20 MEQ TAB.ER.PRT 40 MEQ PO ×2 (07:51→15:29)
[2023-01-13] MEDS: INSULIN GLARGINE,HUM.REC.ANLOG 100 UNIT/ML INSULN.PEN 22 UNIT SUBCUT (07:56)
--- NOTE | 2023-01-13 08:57 | PC.NURSE ---
Pharmacy note: Industrial Arts Teacher faxed order for baby shampoo tx to [facility] to request further supply be sent out this evening.
--- NOTE | 2023-01-14 06:52 | PC.NURSE ---
Pharmacy note: Nursing staff are unable to complete eye care with baby shampoo until [facility] can send supply of this product. [facility] has faxed info stating they will send [facility] once they receive stock.
[2023-01-14] MEDS: BUSPIRONE 10 MG TABLET PO ×2 (07:41→19:08)
[2023-01-14] MEDS: AMLODIPINE 10 MG TABLET PO (07:41)
[2023-01-14] MEDS: FLUOXETINE HCL 20 MG CAPSULE PO (07:42)
[2023-01-14] MEDS: METOPROLOL SUCCINATE (XL) 50 MG TAB PO (07:42)
[2023-01-14] MEDS: lisinopriL 40 MG TABLET PO (07:42)
[2023-01-14] MEDS: FLUOXETINE HCL 40 MG CAPSULE PO (07:42)
[2023-01-14] MEDS: POTASSIUM CHLORIDE 20 MEQ TAB.ER.PRT 40 MEQ PO ×2 (07:44→15:33)
[2023-01-14] MEDS: INSULIN GLARGINE,HUM.REC.ANLOG 100 UNIT/ML INSULN.PEN 22 UNIT SUBCUT (07:52)
--- NOTE | 2023-01-14 13:52 | PC.NURSE ---
Bowel note: ANISH reported resident having one looser stool this afternoon. Res noted to be afebrile with temp of 98.1. ANISH stated resident did c/o stomachache at lunch time. It is not uncommon for this resident to have looser stool. Will update robby shift.
[2023-01-15] MEDS: AMLODIPINE 10 MG TABLET PO (08:24)
[2023-01-15] MEDS: INSULIN GLARGINE,HUM.REC.ANLOG 100 UNIT/ML INSULN.PEN 22 UNIT SUBCUT (08:24)
[2023-01-15] MEDS: lisinopriL 40 MG TABLET PO (08:25)
[2023-01-15] MEDS: POTASSIUM CHLORIDE 20 MEQ TAB.ER.PRT 40 MEQ PO ×2 (08:25→15:46)
[2023-01-15] MEDS: METOPROLOL SUCCINATE (XL) 50 MG TAB PO (08:25)
[2023-01-15] MEDS: FLUOXETINE HCL 40 MG CAPSULE PO (08:25)
[2023-01-15] MEDS: BUSPIRONE 10 MG TABLET PO ×2 (08:25→19:05)
[2023-01-15] MEDS: FLUOXETINE HCL 20 MG CAPSULE PO (08:25)
--- NOTE | 2023-01-15 14:51 | PC.SPIRITC ---
Visit provided for support, connection, and [facility] per Shaista's request.
[2023-01-16] MEDS: AMLODIPINE 10 MG TABLET PO (08:15)
[2023-01-16] MEDS: BUSPIRONE 10 MG TABLET PO ×2 (08:15→19:29)
[2023-01-16] MEDS: lisinopriL 40 MG TABLET PO (08:16)
[2023-01-16] MEDS: FLUOXETINE HCL 20 MG CAPSULE PO (08:16)
[2023-01-16] MEDS: FLUOXETINE HCL 40 MG CAPSULE PO (08:16)
[2023-01-16] MEDS: METOPROLOL SUCCINATE (XL) 50 MG TAB PO (08:16)
[2023-01-16] MEDS: POTASSIUM CHLORIDE 20 MEQ TAB.ER.PRT 40 MEQ PO ×2 (08:18→15:32)
[2023-01-16] MEDS: INSULIN GLARGINE,HUM.REC.ANLOG 100 UNIT/ML INSULN.PEN 22 UNIT SUBCUT (08:31)
[2023-01-16 15:00] VITALS: BP 143/71; PULSE 59; RESP 18; TEMP 36; O2SAT 98
[2023-01-16 16:00] VITALS: BMI 31.3
[2023-01-17] MEDS: AMLODIPINE 10 MG TABLET PO (07:27)
[2023-01-17] MEDS: FLUOXETINE HCL 40 MG CAPSULE PO (07:28)
[2023-01-17] MEDS: BUSPIRONE 10 MG TABLET PO ×2 (07:28→19:50)
[2023-01-17] MEDS: lisinopriL 40 MG TABLET PO (07:28)
[2023-01-17] MEDS: METOPROLOL SUCCINATE (XL) 50 MG TAB PO (07:28)
[2023-01-17] MEDS: FLUOXETINE HCL 20 MG CAPSULE PO (07:28)
[2023-01-17] MEDS: POTASSIUM CHLORIDE 20 MEQ TAB.ER.PRT 40 MEQ PO ×2 (07:28→15:18)
[2023-01-17] MEDS: INSULIN GLARGINE,HUM.REC.ANLOG 100 UNIT/ML INSULN.PEN 22 UNIT SUBCUT (08:21)
[2023-01-17 22:37] VITALS: BMI 32.0
--- NOTE | 2023-01-18 04:37 | PC.NURSE ---
WEEKLY CHARTING WEEK 3: TOILETING AND SKIN Vital signs reviewed with no changes. Temporary care plan reviewed with no changes. Comprehensive care plan reviewed with no changes. Resident does not have any open area ; around stoma of catheter is cleaned daily with dressing changed. Resident has a Mathews cath, change every two weeks ; she is continent of bowel, some episodes of incontinence. Staff assist with all toileting transfers and pericares. Resident got repositioned every 2.5 hours ; she wears XL pullups.
--- NOTE | 2023-01-18 07:06 | PC.NURSE ---
WEEKLY CHARTING- WEEK 3 -TOILETING & SKIN: Vital signs reviewed, BP's are elevated at times and there is no concern at this time as resident is already on hypertension med. Continue weekly monitoring & refer as needed. Comprehensive and temporary care plan reviewed. No changes made. Nothing added to temporary care plan. Resident is usually continent of BM'S, with occasional incontinence of bladder even though she is having a cath. Has a suprapubic catheter connected to the leg bag during the day, emptied by staff. Catheter changed monthly and irrigated by staff every Sunday. Leg and catheter bags changed every 14 days. Resident is able to use the call light for her needs. Uses a medi stand for transfers with one assist. Wears briefs. Pads, edward cares, clothing managed by staff. Resident also has chair as she has tendency to self transfer. Skin: Has chronic bilateral edema. Wears TEDS on AM and off at bedtime. Encourage lower extremities elevation. Suprapubic site cleansed BID with warm, soapy water and covered with dry gauze. Redness on her groin has healed with nystatin powder application. Using medicated shampoo for dry scalp.Skin is checked during cares and on bath day.
[2023-01-18] MEDS: METOPROLOL SUCCINATE (XL) 50 MG TAB PO (07:30)
[2023-01-18] MEDS: AMLODIPINE 10 MG TABLET PO (07:30)
[2023-01-18] MEDS: FLUOXETINE HCL 20 MG CAPSULE PO (07:30)
[2023-01-18] MEDS: lisinopriL 40 MG TABLET PO (07:30)
[2023-01-18] MEDS: POTASSIUM CHLORIDE 20 MEQ TAB.ER.PRT 40 MEQ PO ×2 (07:30→15:02)
[2023-01-18] MEDS: BUSPIRONE 10 MG TABLET PO ×2 (07:30→19:52)
[2023-01-18] MEDS: FLUOXETINE HCL 40 MG CAPSULE PO (07:30)
[2023-01-18] MEDS: INSULIN GLARGINE,HUM.REC.ANLOG 100 UNIT/ML INSULN.PEN 22 UNIT SUBCUT (08:18)
--- NOTE | 2023-01-18 11:51 | PC.NURSE ---
Cath: Catheter changed this morning with 20 Fr cath and 10cc instilled in balloon. Patient tolerated procedure well.
[2023-01-19] MEDS: INSULIN GLARGINE,HUM.REC.ANLOG 100 UNIT/ML INSULN.PEN 22 UNIT SUBCUT (08:32)
[2023-01-19] MEDS: BUSPIRONE 10 MG TABLET PO ×2 (08:32→19:39)
[2023-01-19] MEDS: AMLODIPINE 10 MG TABLET PO (08:32)
[2023-01-19] MEDS: FLUOXETINE HCL 40 MG CAPSULE PO (08:32)
[2023-01-19] MEDS: FLUOXETINE HCL 20 MG CAPSULE PO (08:33)
[2023-01-19] MEDS: METOPROLOL SUCCINATE (XL) 50 MG TAB PO (08:33)
[2023-01-19] MEDS: lisinopriL 40 MG TABLET PO (08:33)
[2023-01-19] MEDS: POTASSIUM CHLORIDE 20 MEQ TAB.ER.PRT 40 MEQ PO ×2 (08:34→15:09)
[2023-01-20] MEDS: AMLODIPINE 10 MG TABLET PO (08:16)
[2023-01-20] MEDS: INSULIN GLARGINE,HUM.REC.ANLOG 100 UNIT/ML INSULN.PEN 22 UNIT SUBCUT (08:17)
[2023-01-20] MEDS: FLUOXETINE HCL 20 MG CAPSULE PO (08:17)
[2023-01-20] MEDS: METOPROLOL SUCCINATE (XL) 50 MG TAB PO (08:17)
[2023-01-20] MEDS: BUSPIRONE 10 MG TABLET PO ×2 (08:17→19:54)
[2023-01-20] MEDS: FLUOXETINE HCL 40 MG CAPSULE PO (08:17)
[2023-01-20] MEDS: lisinopriL 40 MG TABLET PO (08:17)
[2023-01-20] MEDS: POTASSIUM CHLORIDE 20 MEQ TAB.ER.PRT 40 MEQ PO ×2 (08:18→15:38)
[2023-01-21] MEDS: BUSPIRONE 10 MG TABLET PO ×2 (08:33→19:35)
[2023-01-21] MEDS: AMLODIPINE 10 MG TABLET PO (08:33)
[2023-01-21] MEDS: INSULIN GLARGINE,HUM.REC.ANLOG 100 UNIT/ML INSULN.PEN 22 UNIT SUBCUT (08:33)
[2023-01-21] MEDS: FLUOXETINE HCL 40 MG CAPSULE PO (08:33)
[2023-01-21] MEDS: METOPROLOL SUCCINATE (XL) 50 MG TAB PO (08:34)
[2023-01-21] MEDS: lisinopriL 40 MG TABLET PO (08:34)
[2023-01-21] MEDS: FLUOXETINE HCL 20 MG CAPSULE PO (08:34)
[2023-01-21] MEDS: POTASSIUM CHLORIDE 20 MEQ TAB.ER.PRT 40 MEQ PO ×2 (08:34→15:02)
[2023-01-21] MEDS: NYSTATIN POWDER 1 APPLIC TOPICAL ×2 (10:52→22:05)
[2023-01-22] MEDS: FLUOXETINE HCL 20 MG CAPSULE PO (07:58)
[2023-01-22] MEDS: AMLODIPINE 10 MG TABLET PO (07:58)
[2023-01-22] MEDS: BUSPIRONE 10 MG TABLET PO ×2 (07:58→19:14)
[2023-01-22] MEDS: FLUOXETINE HCL 40 MG CAPSULE PO (07:58)
[2023-01-22] MEDS: METOPROLOL SUCCINATE (XL) 50 MG TAB PO (07:59)
[2023-01-22] MEDS: lisinopriL 40 MG TABLET PO (07:59)
[2023-01-22] MEDS: POTASSIUM CHLORIDE 20 MEQ TAB.ER.PRT 40 MEQ PO ×2 (08:00→16:10)
[2023-01-22] MEDS: INSULIN GLARGINE,HUM.REC.ANLOG 100 UNIT/ML INSULN.PEN 22 UNIT SUBCUT (08:40)
[2023-01-23] MEDS: AMLODIPINE 10 MG TABLET PO (07:41)
[2023-01-23] MEDS: FLUOXETINE HCL 20 MG CAPSULE PO (07:42)
[2023-01-23] MEDS: BUSPIRONE 10 MG TABLET PO ×2 (07:42→19:40)
[2023-01-23] MEDS: METOPROLOL SUCCINATE (XL) 50 MG TAB PO (07:42)
[2023-01-23] MEDS: lisinopriL 40 MG TABLET PO (07:42)
[2023-01-23] MEDS: FLUOXETINE HCL 40 MG CAPSULE PO (07:42)
[2023-01-23] MEDS: POTASSIUM CHLORIDE 20 MEQ TAB.ER.PRT 40 MEQ PO ×2 (07:43→15:25)
[2023-01-23] MEDS: INSULIN GLARGINE,HUM.REC.ANLOG 100 UNIT/ML INSULN.PEN 22 UNIT SUBCUT (07:51)
[2023-01-23 10:04] VITALS: BMI 31.8
--- NOTE | 2023-01-23 13:36 | PC.NURSE ---
Feature Writer completed dressing change on suprapubic catheter this AM. Feature Writer noticed yellowish bloody drainage, and foul odor. Charge nurse and UNION ORGANISER notified. Standing order to apply PRN Bacitracin QID is active on EMAR. Will notify oncoming shift to apply medication to site every shift during dressing change. Nursing will continue to monitor for changes and update provider as needed.
[2023-01-23 15:00] VITALS: BP 170/78; PULSE 58; RESP 18; TEMP 36.4; O2SAT 97
[2023-01-23 16:00] VITALS: BMI 29.0
[2023-01-24] MEDS: BACITRACIN OINTMENT BULK TUBE 1 APPLIC TOPICAL ×2 (06:36→22:00)
[2023-01-24] MEDS: FLUOXETINE HCL 20 MG CAPSULE PO (07:33)
[2023-01-24] MEDS: AMLODIPINE 10 MG TABLET PO (07:33)
[2023-01-24] MEDS: BUSPIRONE 10 MG TABLET PO ×2 (07:33→20:41)
[2023-01-24] MEDS: FLUOXETINE HCL 40 MG CAPSULE PO (07:33)
[2023-01-24] MEDS: lisinopriL 40 MG TABLET PO (07:34)
[2023-01-24] MEDS: METOPROLOL SUCCINATE (XL) 50 MG TAB PO (07:34)
[2023-01-24] MEDS: POTASSIUM CHLORIDE 20 MEQ TAB.ER.PRT 40 MEQ PO ×2 (07:34→15:55)
[2023-01-24] MEDS: INSULIN GLARGINE,HUM.REC.ANLOG 100 UNIT/ML INSULN.PEN 22 UNIT SUBCUT (07:42)
--- NOTE | 2023-01-24 11:12 | PC.NURSE ---
Pharmacy note: Professor Of Environmental Science called [facility] to request supply of Debrox be sent out this evening for resident to begin PSO. Professor Of Environmental Science was informed that pharmacy needs copy of signed standing orders which song writer then faxed to [facility]. Professor Of Environmental Science was informed that supply will be sent out this evening for resident.
--- NOTE | 2023-01-24 21:58 | PC.NURSE ---
This automatic typewriter inspector changed resident's dressing and applied bacitracin to SP site. No drainage observed, foul odor still present. Will continue to monitor.
--- NOTE | 2023-01-25 01:22 | PC.NURSE ---
Weekly Charting Week 4: vital signs reviewed. Has few elevated BPs reading with no significant symptoms of Hypertension. SILK WINDING MACHINE OPERATOR aware. VS weekly, update provider as needed. Comprehensive and temporary care plan reviewed with no changes made. No documented behavior this month. Receives Buspar 10mg BID, & Fluoxetine 60 mg daily with no adverse effects noted. No changes in communication, hearing, vision, or orientation. Resident does communicate needs and use the call light. Staff also anticipates. Visual impairment corrected by glasses. Has cognitive impairment r/t dementia. Chronic health condition stable.
--- NOTE | 2023-01-25 07:38 | PC.NURSE ---
WEEKLY CHARTING -WEEK 4 : Communication,Hearing/Vision,Cognition/Behaviors,& Clinical Monitoring Resident`s vital signs reviewed with a few elevated BP reading. PEANUT SHAKER aware and there is no current changes to her medication. Staff will continue to take weekly Vitals and update PEANUT SHAKER. Comprehensive and temporary care plan reviewed with no changes made. Has cognitive impairment r/t dementia with history of fall. Receives Buspar 10mg BID, & Fluoxetine 60 mg daily with no adverse effects noted. She has documented behavior this month. No changes in communication, hearing, vision, or orientation. Resident is able to communicate needs and use the call light. Staff also anticipates her routine need and toileting . Visual impairment corrected by glasses however she never uses them. Staff administered her medication with no issues. Her chronic health condition is currently stable.
[2023-01-25] MEDS: BUSPIRONE 10 MG TABLET PO ×2 (07:55→19:39)
[2023-01-25] MEDS: FLUOXETINE HCL 40 MG CAPSULE PO (07:55)
[2023-01-25] MEDS: AMLODIPINE 10 MG TABLET PO (07:55)
[2023-01-25] MEDS: INSULIN GLARGINE,HUM.REC.ANLOG 100 UNIT/ML INSULN.PEN 22 UNIT SUBCUT (07:55)
[2023-01-25] MEDS: FLUOXETINE HCL 20 MG CAPSULE PO (07:55)
[2023-01-25] MEDS: lisinopriL 40 MG TABLET PO (08:00)
[2023-01-25] MEDS: POTASSIUM CHLORIDE 20 MEQ TAB.ER.PRT 40 MEQ PO ×2 (08:01→15:06)
[2023-01-25] MEDS: METOPROLOL SUCCINATE (XL) 50 MG TAB PO (08:01)
[2023-01-25 10:20] VITALS: BMI 32.1
--- NOTE | 2023-01-25 10:22 | PC.NURSE ---
Weight : Resident`s ila was 180 using tub scale and 181 using wheel chair scale.
[2023-01-25] MEDS: BACITRACIN OINTMENT BULK TUBE 1 APPLIC TOPICAL (22:18)
[2023-01-26] MEDS: FLUOXETINE HCL 20 MG CAPSULE PO (07:33)
[2023-01-26] MEDS: lisinopriL 40 MG TABLET PO (07:33)
[2023-01-26] MEDS: BUSPIRONE 10 MG TABLET PO ×2 (07:33→19:10)
[2023-01-26] MEDS: AMLODIPINE 10 MG TABLET PO (07:33)
[2023-01-26] MEDS: FLUOXETINE HCL 40 MG CAPSULE PO (07:33)
[2023-01-26] MEDS: METOPROLOL SUCCINATE (XL) 50 MG TAB PO (07:33)
[2023-01-26] MEDS: POTASSIUM CHLORIDE 20 MEQ TAB.ER.PRT 40 MEQ PO ×2 (07:33→16:43)
[2023-01-26] MEDS: INSULIN GLARGINE,HUM.REC.ANLOG 100 UNIT/ML INSULN.PEN 22 UNIT SUBCUT (08:13)
--- NOTE | 2023-01-26 09:49 | PC.NURSE ---
Addendum entered by Nicol Silva 01/26/23 13:50: Bacitracin no longer needed with stoma dressing changes. Original Note: Supra pubic stoma: Stoma looks good is round, red and moist. Surrounding skin is pink. No odor noted.
--- NOTE | 2023-01-26 13:12 | PC.NURSE ---
Tissue tolerance test: done today. Turn and reposition every two hours.
[2023-01-27] MEDS: BUSPIRONE 10 MG TABLET PO ×2 (07:56→19:13)
[2023-01-27] MEDS: lisinopriL 40 MG TABLET PO (07:56)
[2023-01-27] MEDS: FLUOXETINE HCL 40 MG CAPSULE PO (07:56)
[2023-01-27] MEDS: FLUOXETINE HCL 20 MG CAPSULE PO (07:56)
[2023-01-27] MEDS: AMLODIPINE 10 MG TABLET PO (07:56)
[2023-01-27] MEDS: POTASSIUM CHLORIDE 20 MEQ TAB.ER.PRT 40 MEQ PO ×2 (07:57→15:24)
[2023-01-27] MEDS: METOPROLOL SUCCINATE (XL) 50 MG TAB PO (07:57)
[2023-01-27] MEDS: INSULIN GLARGINE,HUM.REC.ANLOG 100 UNIT/ML INSULN.PEN 22 UNIT SUBCUT (08:05)
--- NOTE | 2023-01-27 21:25 | PC.NURSE ---
Resident resting in her recliner all shift refused staff assist to wheel chair for supper in the dinning room, did eat supper in her room with recliner put in the sitting position, had episode if visual hallucination after supper telling staff that she saw a man crawling on her wall and little girl by her left side bedrail and refusing to have recliner put back in the recline position, redirected by Office Manager Executive Assistant assisted to her wheel chair and brought to the nurses station for 1:1 monitoring, did calm down cares provided and assisted to bed.
[2023-01-28] MEDS: FLUOXETINE HCL 40 MG CAPSULE PO (07:44)
[2023-01-28] MEDS: AMLODIPINE 10 MG TABLET PO (07:44)
[2023-01-28] MEDS: BUSPIRONE 10 MG TABLET PO ×2 (07:44→19:15)
[2023-01-28] MEDS: FLUOXETINE HCL 20 MG CAPSULE PO (07:45)
[2023-01-28] MEDS: POTASSIUM CHLORIDE 20 MEQ TAB.ER.PRT 40 MEQ PO ×2 (07:45→15:52)
[2023-01-28] MEDS: lisinopriL 40 MG TABLET PO (07:45)
[2023-01-28] MEDS: METOPROLOL SUCCINATE (XL) 50 MG TAB PO (07:45)
[2023-01-28] MEDS: INSULIN GLARGINE,HUM.REC.ANLOG 100 UNIT/ML INSULN.PEN 22 UNIT SUBCUT (08:15)
[2023-01-29] MEDS: FLUOXETINE HCL 40 MG CAPSULE PO (08:19)
[2023-01-29] MEDS: INSULIN GLARGINE,HUM.REC.ANLOG 100 UNIT/ML INSULN.PEN 22 UNIT SUBCUT (08:19)
[2023-01-29] MEDS: AMLODIPINE 10 MG TABLET PO (08:19)
[2023-01-29] MEDS: FLUOXETINE HCL 20 MG CAPSULE PO (08:19)
[2023-01-29] MEDS: BUSPIRONE 10 MG TABLET PO ×2 (08:19→19:31)
[2023-01-29] MEDS: POTASSIUM CHLORIDE 20 MEQ TAB.ER.PRT 40 MEQ PO ×2 (08:20→15:41)
[2023-01-29] MEDS: METOPROLOL SUCCINATE (XL) 50 MG TAB PO (08:20)
[2023-01-29] MEDS: lisinopriL 40 MG TABLET PO (08:20)
[2023-01-30] MEDS: NYSTATIN POWDER 1 APPLIC TOPICAL (07:20)
[2023-01-30] MEDS: AMLODIPINE 10 MG TABLET PO (07:47)
[2023-01-30] MEDS: BUSPIRONE 10 MG TABLET PO ×2 (07:47→19:13)
[2023-01-30] MEDS: FLUOXETINE HCL 40 MG CAPSULE PO (07:48)
[2023-01-30] MEDS: METOPROLOL SUCCINATE (XL) 50 MG TAB PO (07:48)
[2023-01-30] MEDS: lisinopriL 40 MG TABLET PO (07:48)
[2023-01-30] MEDS: FLUOXETINE HCL 20 MG CAPSULE PO (07:48)
[2023-01-30] MEDS: POTASSIUM CHLORIDE 20 MEQ TAB.ER.PRT 40 MEQ PO ×2 (07:51→15:06)
[2023-01-30] MEDS: INSULIN GLARGINE,HUM.REC.ANLOG 100 UNIT/ML INSULN.PEN 22 UNIT SUBCUT (07:53)
[2023-01-30 15:00] VITALS: BP 145/67; PULSE 62; RESP 16; TEMP 36.3; O2SAT 99
--- NOTE | 2023-01-30 15:39 | PC.SOCIAL ---
Resident's care conference was held today. No family was present. Resident has had no s/s of depression noted. Resident had an episode recently of visual hallucinations. Staff are monitoring.
--- NOTE | 2023-01-30 15:47 | PC.NURSE ---
CARE CONFERENCE: meeting held with care team members from nursing, dietary, and group social worker. Resident present, no family. Wt stable, appetite is good. Continues to eat snacks between meals. Nursing reviewed that resident continues to need 1 ANISH extensive assistance with dressing, grooming, mobility and bathing. Prolonged chronic weakness. Propelled by staff in wheelchair. Often refuses to leave her room. Resident is awake, alert and responding appropriately to questioning. Resident smiles some with joking. POLST reviewed. Is DNR/DNI. Uses no restraints.?Resident is not able to self admin own medications due to dementia. Mood appears stable on current medication regimen. Resident was noted to have hallucinations on 01/27 which she confirms. She notes that medication does not help with this and it comes and goes. She states she is not sure if she can tell whether the hallucinations are real or not and notes that they do bother her. Fitter Up will discuss this with PEDIATRIC PSYCHOLOGIST/Bonnie at next visit. Resident was also noted to have fall on 12/02/22 without significant injuries. Resident had foul drainage noted from suprapubic catheter that has resolved with three days of Bacitracin application after cleansing. Vulnerability- is at risk for being harmed. Resident pleased with care at this time. There are no discharge plans, long-term care.?
[2023-01-30 16:00] VITALS: BMI 32.5
[2023-01-31] MEDS: AMLODIPINE 10 MG TABLET PO (07:19)
[2023-01-31] MEDS: BUSPIRONE 10 MG TABLET PO ×2 (07:19→20:15)
[2023-01-31] MEDS: lisinopriL 40 MG TABLET PO (07:20)
[2023-01-31] MEDS: FLUOXETINE HCL 40 MG CAPSULE PO (07:20)
[2023-01-31] MEDS: FLUOXETINE HCL 20 MG CAPSULE PO (07:20)
[2023-01-31] MEDS: METOPROLOL SUCCINATE (XL) 50 MG TAB PO (07:20)
[2023-01-31] MEDS: INSULIN GLARGINE,HUM.REC.ANLOG 100 UNIT/ML INSULN.PEN 22 UNIT SUBCUT (07:33)
[2023-01-31] MEDS: POTASSIUM CHLORIDE 20 MEQ TAB.ER.PRT 40 MEQ PO ×2 (07:33→16:04)
--- NOTE | 2023-01-31 16:08 | PC.SPIRITC ---
I provided visit for support and connection.
[2023-02-01] MEDS: lisinopriL 40 MG TABLET PO (07:39)
[2023-02-01] MEDS: FLUOXETINE HCL 40 MG CAPSULE PO (07:39)
[2023-02-01] MEDS: FLUOXETINE HCL 20 MG CAPSULE PO (07:39)
[2023-02-01] MEDS: BUSPIRONE 10 MG TABLET PO ×2 (07:39→19:32)
[2023-02-01] MEDS: AMLODIPINE 10 MG TABLET PO (07:39)
[2023-02-01] MEDS: METOPROLOL SUCCINATE (XL) 50 MG TAB PO (07:39)
[2023-02-01] MEDS: POTASSIUM CHLORIDE 20 MEQ TAB.ER.PRT 40 MEQ PO ×2 (07:40→15:02)
[2023-02-01] MEDS: INSULIN GLARGINE,HUM.REC.ANLOG 100 UNIT/ML INSULN.PEN 22 UNIT SUBCUT (07:49)
[2023-02-02] MEDS: NYSTATIN POWDER 1 APPLIC TOPICAL (06:50)
[2023-02-02] MEDS: AMLODIPINE 10 MG TABLET PO (08:15)
[2023-02-02] MEDS: INSULIN GLARGINE,HUM.REC.ANLOG 100 UNIT/ML INSULN.PEN 22 UNIT SUBCUT (08:15)
[2023-02-02] MEDS: METOPROLOL SUCCINATE (XL) 50 MG TAB PO (08:16)
[2023-02-02] MEDS: BUSPIRONE 10 MG TABLET PO ×2 (08:16→20:21)
[2023-02-02] MEDS: POTASSIUM CHLORIDE 20 MEQ TAB.ER.PRT 40 MEQ PO ×2 (08:16→15:26)
[2023-02-02] MEDS: FLUOXETINE HCL 20 MG CAPSULE PO (08:16)
[2023-02-02] MEDS: FLUOXETINE HCL 40 MG CAPSULE PO (08:16)
[2023-02-02] MEDS: lisinopriL 40 MG TABLET PO (08:16)
[2023-02-03] MEDS: NYSTATIN POWDER 1 APPLIC TOPICAL (07:24)
[2023-02-03] MEDS: INSULIN GLARGINE,HUM.REC.ANLOG 100 UNIT/ML INSULN.PEN 22 UNIT SUBCUT (08:22)
[2023-02-03] MEDS: AMLODIPINE 10 MG TABLET PO (08:24)
[2023-02-03] MEDS: lisinopriL 40 MG TABLET PO (08:25)
[2023-02-03] MEDS: FLUOXETINE HCL 20 MG CAPSULE PO (08:25)
[2023-02-03] MEDS: METOPROLOL SUCCINATE (XL) 50 MG TAB PO (08:25)
[2023-02-03] MEDS: BUSPIRONE 10 MG TABLET PO ×2 (08:25→19:35)
[2023-02-03] MEDS: POTASSIUM CHLORIDE 20 MEQ TAB.ER.PRT 40 MEQ PO ×2 (08:25→15:20)
[2023-02-03] MEDS: FLUOXETINE HCL 40 MG CAPSULE PO (08:25)
[2023-02-04] MEDS: AMLODIPINE 10 MG TABLET PO (08:34)
[2023-02-04] MEDS: INSULIN GLARGINE,HUM.REC.ANLOG 100 UNIT/ML INSULN.PEN 22 UNIT SUBCUT (08:34)
[2023-02-04] MEDS: lisinopriL 40 MG TABLET PO (08:35)
[2023-02-04] MEDS: POTASSIUM CHLORIDE 20 MEQ TAB.ER.PRT 40 MEQ PO ×2 (08:35→15:30)
[2023-02-04] MEDS: FLUOXETINE HCL 40 MG CAPSULE PO (08:35)
[2023-02-04] MEDS: BUSPIRONE 10 MG TABLET PO ×2 (08:35→19:26)
[2023-02-04] MEDS: FLUOXETINE HCL 20 MG CAPSULE PO (08:35)
[2023-02-04] MEDS: METOPROLOL SUCCINATE (XL) 50 MG TAB PO (08:35)
[2023-02-05] MEDS: BUSPIRONE 10 MG TABLET PO ×2 (08:09→20:37)
[2023-02-05] MEDS: AMLODIPINE 10 MG TABLET PO (08:09)
[2023-02-05] MEDS: INSULIN GLARGINE,HUM.REC.ANLOG 100 UNIT/ML INSULN.PEN 22 UNIT SUBCUT (08:09)
[2023-02-05] MEDS: FLUOXETINE HCL 40 MG CAPSULE PO (08:09)
[2023-02-05] MEDS: FLUOXETINE HCL 20 MG CAPSULE PO (08:10)
[2023-02-05] MEDS: POTASSIUM CHLORIDE 20 MEQ TAB.ER.PRT 40 MEQ PO ×2 (08:10→16:30)
[2023-02-05] MEDS: lisinopriL 40 MG TABLET PO (08:10)
[2023-02-05] MEDS: METOPROLOL SUCCINATE (XL) 50 MG TAB PO (08:10)
--- NOTE | 2023-02-05 15:07 | PC.SPIRITC ---
Shaista expressed sadness and concern over hearing the [facility] is closing. I provided visit for support and connection along with time to begin processing the change ahead.
[2023-02-06] MEDS: AMLODIPINE 10 MG TABLET PO (07:37)
[2023-02-06] MEDS: INSULIN GLARGINE,HUM.REC.ANLOG 100 UNIT/ML INSULN.PEN 22 UNIT SUBCUT (07:37)
[2023-02-06] MEDS: BUSPIRONE 10 MG TABLET PO ×2 (07:37→20:13)
[2023-02-06] MEDS: lisinopriL 40 MG TABLET PO (07:38)
[2023-02-06] MEDS: METOPROLOL SUCCINATE (XL) 50 MG TAB PO (07:38)
[2023-02-06] MEDS: FLUOXETINE HCL 20 MG CAPSULE PO (07:38)
[2023-02-06] MEDS: POTASSIUM CHLORIDE 20 MEQ TAB.ER.PRT 40 MEQ PO ×2 (07:38→15:35)
[2023-02-06] MEDS: FLUOXETINE HCL 40 MG CAPSULE PO (07:38)
[2023-02-06 15:00] VITALS: BP 139/69; PULSE 60; RESP 18; TEMP 36.8; O2SAT 97
[2023-02-07] MEDS: FLUOXETINE HCL 40 MG CAPSULE PO (07:46)
[2023-02-07] MEDS: INSULIN GLARGINE,HUM.REC.ANLOG 100 UNIT/ML INSULN.PEN 22 UNIT SUBCUT (07:46)
[2023-02-07] MEDS: FLUOXETINE HCL 20 MG CAPSULE PO (07:46)
[2023-02-07] MEDS: BUSPIRONE 10 MG TABLET PO ×2 (07:46→19:08)
[2023-02-07] MEDS: AMLODIPINE 10 MG TABLET PO (07:46)
[2023-02-07] MEDS: lisinopriL 40 MG TABLET PO (07:47)
[2023-02-07] MEDS: POTASSIUM CHLORIDE 20 MEQ TAB.ER.PRT 40 MEQ PO ×2 (07:47→16:03)
[2023-02-07] MEDS: METOPROLOL SUCCINATE (XL) 50 MG TAB PO (07:47)
--- NOTE | 2023-02-07 14:07 | PC.SPIRITC ---
I provided visit for support and connection.
--- NOTE | 2023-02-08 00:35 | PC.NURSE ---
Weekly Charting Week 1 Vital signs reviewed, Few BP reading elevated. COMMUNICATIONS ANALYST is platt, Continue to check weekly, update provider as needed. Comprehensive and temporary care plan reviewed with no changes made. PAIN:Has history of chronic pain. Resident has no complain of pain the past month. Currently on [id number] BID and has available Tramadol 50mg PRN BID for pain management. ADLS: Extensive assist of 1 with dressing, grooming, and bathing. Able to complete oral cares independently after set-up. Staff complete as needed. Receives a regular diet with regular texture and thin liquids. Receives large portions per resident request. Eats independently after setup. No documented chewing/swallowing problem.
--- NOTE | 2023-02-08 07:49 | PC.NURSE ---
Weekly Charting, Week 1-ADL'S: Comprehensive and temporary care plan reviewed. No changes made and nothing added to temporary care plan.Resident needs extensive assist of 1 with dressing, grooming and bathing. Encourage to participate as much as she is able. Does oral cares after set up. Staff complete as needed. Independent with feeding after set up. Is on regular diet, regular texture, thin liquids, large portions per her request. No problems with chewing/swallowing reported. Vital signs reviewed, occasional elevated BP's. Continue with weekly monitoring and refer to provider as needed. Pain: Has chronic pain controlled with Lyrica 300mg BID. And Ultram 50mg BID PRN & has used occasionally with relief. She is able to verbalize need for pain. Has no complain of pain for the last month.
[2023-02-08] MEDS: AMLODIPINE 10 MG TABLET PO (08:37)
[2023-02-08] MEDS: BUSPIRONE 10 MG TABLET PO ×2 (08:40→19:41)
[2023-02-08] MEDS: FLUOXETINE HCL 40 MG CAPSULE PO (08:40)
[2023-02-08] MEDS: FLUOXETINE HCL 20 MG CAPSULE PO (08:40)
[2023-02-08] MEDS: lisinopriL 40 MG TABLET PO (08:40)
[2023-02-08] MEDS: METOPROLOL SUCCINATE (XL) 50 MG TAB PO (08:40)
[2023-02-08] MEDS: INSULIN GLARGINE,HUM.REC.ANLOG 100 UNIT/ML INSULN.PEN 22 UNIT SUBCUT (08:40)
[2023-02-08] MEDS: POTASSIUM CHLORIDE 20 MEQ TAB.ER.PRT 40 MEQ PO ×2 (08:41→15:33)
[2023-02-09] MEDS: FLUOXETINE HCL 40 MG CAPSULE PO (07:30)
[2023-02-09] MEDS: AMLODIPINE 10 MG TABLET PO (07:30)
[2023-02-09] MEDS: lisinopriL 40 MG TABLET PO (07:30)
[2023-02-09] MEDS: BUSPIRONE 10 MG TABLET PO ×2 (07:30→19:02)
[2023-02-09] MEDS: METOPROLOL SUCCINATE (XL) 50 MG TAB PO (07:30)
[2023-02-09] MEDS: FLUOXETINE HCL 20 MG CAPSULE PO (07:30)
[2023-02-09] MEDS: POTASSIUM CHLORIDE 20 MEQ TAB.ER.PRT 40 MEQ PO ×2 (07:31→15:04)
[2023-02-09] MEDS: INSULIN GLARGINE,HUM.REC.ANLOG 100 UNIT/ML INSULN.PEN 22 UNIT SUBCUT (08:12)
--- NOTE | 2023-02-09 11:28 | PC.NURSE ---
Recert Visit: Resident seen by Dr. Retana. Orders reviewed and renewed of 75 days with changes. Order: D/C the following unused PRN's: Ondansetron, Loperamide, Mag Ox, Tramadol. D/C routine accu checks, decrease Toprol XL to 25 mg daily, Check BP & hr 3x/week x 1 week and update with readings next week.
[2023-02-09 16:00] VITALS: BP 159/72; PULSE 58
[2023-02-10] MEDS: AMLODIPINE 10 MG TABLET PO (07:32)
[2023-02-10] MEDS: BUSPIRONE 10 MG TABLET PO ×2 (07:32→19:04)
[2023-02-10] MEDS: FLUOXETINE HCL 40 MG CAPSULE PO (07:32)
[2023-02-10] MEDS: FLUOXETINE HCL 20 MG CAPSULE PO (07:32)
[2023-02-10] MEDS: lisinopriL 40 MG TABLET PO (07:32)
[2023-02-10] MEDS: METOPROLOL SUCCINATE (XL) 50 MG TAB 25 MG PO (07:33)
[2023-02-10] MEDS: POTASSIUM CHLORIDE 20 MEQ TAB.ER.PRT 40 MEQ PO ×2 (07:33→15:12)
[2023-02-10] MEDS: INSULIN GLARGINE,HUM.REC.ANLOG 100 UNIT/ML INSULN.PEN 22 UNIT SUBCUT (08:17)
[2023-02-11] MEDS: INSULIN GLARGINE,HUM.REC.ANLOG 100 UNIT/ML INSULN.PEN 22 UNIT SUBCUT (07:27)
[2023-02-11] MEDS: FLUOXETINE HCL 40 MG CAPSULE PO (07:27)
[2023-02-11] MEDS: BUSPIRONE 10 MG TABLET PO ×2 (07:27→19:27)
[2023-02-11] MEDS: AMLODIPINE 10 MG TABLET PO (07:27)
[2023-02-11] MEDS: lisinopriL 40 MG TABLET PO (07:28)
[2023-02-11] MEDS: POTASSIUM CHLORIDE 20 MEQ TAB.ER.PRT 40 MEQ PO ×2 (07:28→15:23)
[2023-02-11] MEDS: FLUOXETINE HCL 20 MG CAPSULE PO (07:28)
[2023-02-11] MEDS: METOPROLOL SUCCINATE (XL) 50 MG TAB 25 MG PO (07:28)
[2023-02-12] MEDS: AMLODIPINE 10 MG TABLET PO (08:04)
[2023-02-12] MEDS: INSULIN GLARGINE,HUM.REC.ANLOG 100 UNIT/ML INSULN.PEN 22 UNIT SUBCUT (08:04)
[2023-02-12] MEDS: FLUOXETINE HCL 40 MG CAPSULE PO (08:05)
[2023-02-12] MEDS: BUSPIRONE 10 MG TABLET PO ×2 (08:05→20:19)
[2023-02-12] MEDS: lisinopriL 40 MG TABLET PO (08:06)
[2023-02-12] MEDS: METOPROLOL SUCCINATE (XL) 50 MG TAB 25 MG PO (08:06)
[2023-02-12] MEDS: FLUOXETINE HCL 20 MG CAPSULE PO (08:06)
[2023-02-12] MEDS: POTASSIUM CHLORIDE 20 MEQ TAB.ER.PRT 40 MEQ PO ×2 (08:07→15:55)
--- NOTE | 2023-02-12 15:34 | PC.PHA1 ---
OCEAN EXPORT ACCOUNT MANAGER PHARMACIST'S MEDICATION REVIEW: MEDICATION MONITORING:Fluoxetine 60 mg daily, IRREGULARITY OR COMMENTS:Patient had no medication changes for December. Need for fluoxetine continues, GDR clinically contraindicated. Pregabalin and tramadol prn for pain. SUGGESTED COURSE OF ACTION TAKEN:No medication recommendations this review.
[2023-02-12 16:00] VITALS: BP 154/72; PULSE 66
[2023-02-13] MEDS: lisinopriL 40 MG TABLET PO (07:56)
[2023-02-13] MEDS: POTASSIUM CHLORIDE 20 MEQ TAB.ER.PRT 40 MEQ PO ×2 (07:56→15:56)
[2023-02-13] MEDS: FLUOXETINE HCL 40 MG CAPSULE PO (07:56)
[2023-02-13] MEDS: BUSPIRONE 10 MG TABLET PO ×2 (07:56→19:55)
[2023-02-13] MEDS: INSULIN GLARGINE,HUM.REC.ANLOG 100 UNIT/ML INSULN.PEN 22 UNIT SUBCUT (07:56)
[2023-02-13] MEDS: FLUOXETINE HCL 20 MG CAPSULE PO (07:56)
[2023-02-13] MEDS: AMLODIPINE 10 MG TABLET PO (07:56)
[2023-02-13] MEDS: METOPROLOL SUCCINATE (XL) 50 MG TAB 25 MG PO (07:56)
[2023-02-13 15:00] VITALS: BP 156/68; PULSE 58; RESP 18; TEMP 36.6; O2SAT 100
[2023-02-14] MEDS: AMLODIPINE 10 MG TABLET PO (07:39)
[2023-02-14] MEDS: BUSPIRONE 10 MG TABLET PO ×2 (07:39→19:52)
[2023-02-14] MEDS: FLUOXETINE HCL 40 MG CAPSULE PO (07:39)
[2023-02-14] MEDS: lisinopriL 40 MG TABLET PO (07:40)
[2023-02-14] MEDS: FLUOXETINE HCL 20 MG CAPSULE PO (07:40)
[2023-02-14] MEDS: METOPROLOL SUCCINATE (XL) 50 MG TAB 25 MG PO (07:40)
[2023-02-14] MEDS: POTASSIUM CHLORIDE 20 MEQ TAB.ER.PRT 40 MEQ PO ×2 (07:41→15:01)
[2023-02-14] MEDS: INSULIN GLARGINE,HUM.REC.ANLOG 100 UNIT/ML INSULN.PEN 22 UNIT SUBCUT (07:46)
[2023-02-14 16:00] VITALS: BP 159/79; PULSE 64
--- NOTE | 2023-02-15 03:02 | PC.NURSE ---
WEEKLY CHARTING WEEK 2 : MOBILITY Vital signs reviewed, few elevated high blood pressure, 159/79 (02/08), Continue weekly vitals monitoring, update Provider as needed. Comprehensive and temporary care plan reviewed with no changes made. Resident requires assist of one with the use of easy stand for transfer all times, assist of one with bed mobility, non ambulatory Staff propel resident to all destinations. No alarms. Staff assist with bed positioning.? Fall: Resident is at high risk for fall according to assessment done on 12/02/22. Fall interventions: call light within reach, bed in low position with brakes locked, frequents checks as resident temps to self transfer sometimes ; gripper socks for all transfers, falling star magnet, chair alarm.
--- NOTE | 2023-02-15 06:37 | PC.NURSE ---
Addendum entered by Marry Santizo RN 02/16/23 07:20: Check BP & Pulse 3x/week then MD evaluates. Original Note: Weekly Charting, Week 2 - MOBILITY: Comprehensive and temporary care plan reviewed. No changes made, nothing added to temporary care plan. Resident is non ambulatory. One assist, medi stand for all transfers. Staff propel to all destinations.? Staff assist with bed positioning.? No alarms. Vital signs reviewed, BP is variable. Continue weekly monitoring & refer to provider as needed. Fall: No falls the past month. Remains a high fall risk according to assessment done on 11/23/22. Fall interventions: call light within reach, bed in low position with brakes locked. gripper socks for all transfers, falling star magnet.
[2023-02-15] MEDS: INSULIN GLARGINE,HUM.REC.ANLOG 100 UNIT/ML INSULN.PEN 22 UNIT SUBCUT (07:54)
[2023-02-15] MEDS: AMLODIPINE 10 MG TABLET PO (07:54)
[2023-02-15] MEDS: POTASSIUM CHLORIDE 20 MEQ TAB.ER.PRT 40 MEQ PO ×2 (07:55→16:09)
[2023-02-15] MEDS: FLUOXETINE HCL 40 MG CAPSULE PO (07:55)
[2023-02-15] MEDS: FLUOXETINE HCL 20 MG CAPSULE PO (07:55)
[2023-02-15] MEDS: BUSPIRONE 10 MG TABLET PO ×2 (07:55→19:35)
[2023-02-15] MEDS: METOPROLOL SUCCINATE (XL) 50 MG TAB 25 MG PO (07:55)
[2023-02-15] MEDS: lisinopriL 40 MG TABLET PO (07:55)
--- NOTE | 2023-02-15 10:19 | PC.SPIRITC ---
I provided visit as Shaista waited for breakfast. We also discussed how Shaista is looking forward to living by her daughter, along with reminiscing about [place].
[2023-02-16] MEDS: AMLODIPINE 10 MG TABLET PO (08:36)
[2023-02-16] MEDS: INSULIN GLARGINE,HUM.REC.ANLOG 100 UNIT/ML INSULN.PEN 22 UNIT SUBCUT (08:36)
[2023-02-16] MEDS: BUSPIRONE 10 MG TABLET PO ×2 (08:37→19:35)
[2023-02-16] MEDS: FLUOXETINE HCL 20 MG CAPSULE PO (08:37)
[2023-02-16] MEDS: FLUOXETINE HCL 40 MG CAPSULE PO (08:37)
[2023-02-16] MEDS: lisinopriL 40 MG TABLET PO (08:38)
[2023-02-16] MEDS: METOPROLOL SUCCINATE (XL) 50 MG TAB 25 MG PO (08:38)
[2023-02-16] MEDS: POTASSIUM CHLORIDE 20 MEQ TAB.ER.PRT 40 MEQ PO ×2 (08:39→15:55)
--- NOTE | 2023-02-16 10:37 | PC.NURSE ---
Status/Order: Dr. Retana here. BP's & HR reviewed. Discontinue Metoprolol, Check BP & HR 3x/wk x 1 wk and update with readings next week.
[2023-02-16 16:00] VITALS: BP 156/75; PULSE 66
[2023-02-17] MEDS: FLUOXETINE HCL 40 MG CAPSULE PO (08:41)
[2023-02-17] MEDS: AMLODIPINE 10 MG TABLET PO (08:41)
[2023-02-17] MEDS: BUSPIRONE 10 MG TABLET PO ×2 (08:41→19:43)
[2023-02-17] MEDS: INSULIN GLARGINE,HUM.REC.ANLOG 100 UNIT/ML INSULN.PEN 22 UNIT SUBCUT (08:41)
[2023-02-17] MEDS: lisinopriL 40 MG TABLET PO (08:42)
[2023-02-17] MEDS: POTASSIUM CHLORIDE 20 MEQ TAB.ER.PRT 40 MEQ PO ×2 (08:42→15:41)
[2023-02-17] MEDS: FLUOXETINE HCL 20 MG CAPSULE PO (08:42)
--- NOTE | 2023-02-17 10:01 | PC.NURSE ---
Status: Catheter was changed this shift using 20F and 10cc balloon with good, yellow urine return. No issues noted
[2023-02-18] MEDS: INSULIN GLARGINE,HUM.REC.ANLOG 100 UNIT/ML INSULN.PEN 22 UNIT SUBCUT (07:47)
[2023-02-18] MEDS: AMLODIPINE 10 MG TABLET PO (07:47)
[2023-02-18] MEDS: BUSPIRONE 10 MG TABLET PO ×2 (07:48→19:53)
[2023-02-18] MEDS: POTASSIUM CHLORIDE 20 MEQ TAB.ER.PRT 40 MEQ PO ×2 (07:48→15:26)
[2023-02-18] MEDS: lisinopriL 40 MG TABLET PO (07:48)
[2023-02-18] MEDS: FLUOXETINE HCL 20 MG CAPSULE PO (07:48)
[2023-02-18] MEDS: FLUOXETINE HCL 40 MG CAPSULE PO (07:48)
[2023-02-19] MEDS: AMLODIPINE 10 MG TABLET PO (08:11)
[2023-02-19] MEDS: BUSPIRONE 10 MG TABLET PO ×2 (08:13→19:59)
[2023-02-19] MEDS: FLUOXETINE HCL 40 MG CAPSULE PO (08:13)
[2023-02-19] MEDS: INSULIN GLARGINE,HUM.REC.ANLOG 100 UNIT/ML INSULN.PEN 22 UNIT SUBCUT (08:13)
[2023-02-19] MEDS: FLUOXETINE HCL 20 MG CAPSULE PO (08:13)
[2023-02-19] MEDS: lisinopriL 40 MG TABLET PO (08:14)
[2023-02-19] MEDS: POTASSIUM CHLORIDE 20 MEQ TAB.ER.PRT 40 MEQ PO ×2 (08:28→15:20)
[2023-02-19 16:00] VITALS: BP 143/82; PULSE 91
[2023-02-20] MEDS: FLUOXETINE HCL 40 MG CAPSULE PO (07:20)
[2023-02-20] MEDS: BUSPIRONE 10 MG TABLET PO ×2 (07:20→19:06)
[2023-02-20] MEDS: AMLODIPINE 10 MG TABLET PO (07:20)
[2023-02-20] MEDS: POTASSIUM CHLORIDE 20 MEQ TAB.ER.PRT 40 MEQ PO ×2 (07:21→15:39)
[2023-02-20] MEDS: FLUOXETINE HCL 20 MG CAPSULE PO (07:21)
[2023-02-20] MEDS: lisinopriL 40 MG TABLET PO (07:21)
[2023-02-20] MEDS: INSULIN GLARGINE,HUM.REC.ANLOG 100 UNIT/ML INSULN.PEN 22 UNIT SUBCUT (07:26)
--- NOTE | 2023-02-20 10:03 | PC.NURSE ---
Pain note: ANISH reported resident was c/o R leg pain during AM cares this morning and refused to allow ANISH to put bilateral leg rests on wheelchair. Pain to R leg noted to be 5/10 with movement with rest encouraged. No further c/o pain after repositioning, rest and scheduled Lyrica given.
[2023-02-20 15:00] VITALS: BP 153/73; PULSE 66; RESP 18; TEMP 36.4
[2023-02-20 16:00] VITALS: BMI 32.8
[2023-02-21] MEDS: FLUOXETINE HCL 20 MG CAPSULE PO (07:45)
[2023-02-21] MEDS: lisinopriL 40 MG TABLET PO (07:45)
[2023-02-21] MEDS: FLUOXETINE HCL 40 MG CAPSULE PO (07:45)
[2023-02-21] MEDS: INSULIN GLARGINE,HUM.REC.ANLOG 100 UNIT/ML INSULN.PEN 22 UNIT SUBCUT (07:45)
[2023-02-21] MEDS: POTASSIUM CHLORIDE 20 MEQ TAB.ER.PRT 40 MEQ PO ×2 (07:45→15:33)
[2023-02-21] MEDS: AMLODIPINE 10 MG TABLET PO (07:45)
[2023-02-21] MEDS: BUSPIRONE 10 MG TABLET PO ×2 (07:45→19:15)
--- NOTE | 2023-02-21 10:19 | PC.PHA1 ---
SKOOG OPERATOR PHARMACIST'S MEDICATION REVIEW: MEDICATION MONITORING:Fluoxetine 60 mg daily, Buspirone 10 mg bid IRREGULARITY OR COMMENTS:Patient continues on same medication regimen since last review with exception of metoprolol which was most recently discontinued for low heart rate. Lisinopril 40 mg daily and amlodipine 10 mg daily continue to blood pressure control. Potassium 40 meq bid continues, with last potassium level 09/19/22. GDR for fluoxetine and buspirone clinically contraindicated this review. SUGGESTED COURSE OF ACTION TAKEN:No medication recommendations this review.
[2023-02-21 16:00] VITALS: BP 146/76; PULSE 73
--- NOTE | 2023-02-21 23:40 | PC.NURSE ---
Weekly Charting Week 3 Toileting and Skin Vital signs reviewed. BP's elevated. Provider aware, Staff to check BP and HR x3/week, Update provider in next week. Metoprolol discontinued last 02/16. Comprehensive and temporary care plan reviewed with no changes made. Toileting: Resident is usually continent of BM'S able to use call light for bathroom use. Res use Medi stand for transfer with one assist for toileting. Has a suprapubic catheter, emptied by staff. Catheter changed monthly and irrigated by staff every Sunday. Wears briefs. Pads, edward cares, clothing managed by staff. Skin: Has chronic bilateral edema. Wears TEDS on AM and off at bedtime. Encourage to elevate lower extremities. Suprapubic site cleansed BID with warm, soapy water and covered with dry gauze. Using medicated shampoo for dry scalp. Skin assessment done on bath days and during cares.
[2023-02-22] MEDS: AMLODIPINE 10 MG TABLET PO (08:30)
[2023-02-22] MEDS: INSULIN GLARGINE,HUM.REC.ANLOG 100 UNIT/ML INSULN.PEN 22 UNIT SUBCUT (08:30)
[2023-02-22] MEDS: FLUOXETINE HCL 20 MG CAPSULE PO (08:31)
[2023-02-22] MEDS: FLUOXETINE HCL 40 MG CAPSULE PO (08:31)
[2023-02-22] MEDS: BUSPIRONE 10 MG TABLET PO ×2 (08:31→20:08)
[2023-02-22] MEDS: lisinopriL 40 MG TABLET PO (08:32)
[2023-02-22] MEDS: POTASSIUM CHLORIDE 20 MEQ TAB.ER.PRT 40 MEQ PO ×2 (08:32→15:37)
--- NOTE | 2023-02-22 11:39 | PC.NURSE ---
Weekly Charting, Week 3-Toileting: Comprehensive and temporary care plan reviewed. No changes made. Nothing added to temporary care plan. Resident is usually continent of BM'S, with occasional incontinence. Has a suprapubic catheter connected to the leg bag during the day, emptied by staff. Catheter changed monthly and irrigated by staff every Sunday. Leg and catheter bags changed every 14 days. Resident will call for BM. Uses a medi stand for transfers with one assist. Wears briefs. Pads, edward cares, clothing managed by staff. Vital signs reviewed, BP's varies. Receives Lisinopril & Metoprolol. 02/16 Metoprolol discontinued d/t low pulse. Pulse & BP monitored 3x/wk and MD will evaluate in a week. Skin: Has chronic bilateral edema. Wears teds on-am, off-hs. Encourage lower extremities elevation. Suprapubic site cleansed BID with warm, soapy water and covered with dry gauze. Using medicated shampoo for dry scalp.Shampoo & warm, wash cloth to eyes daily d/t redness and drainage. Skin is checked during cares and on bath day.
[2023-02-23] MEDS: INSULIN GLARGINE,HUM.REC.ANLOG 100 UNIT/ML INSULN.PEN 22 UNIT SUBCUT (07:26)
[2023-02-23] MEDS: AMLODIPINE 10 MG TABLET PO (07:26)
[2023-02-23] MEDS: lisinopriL 40 MG TABLET PO (07:27)
[2023-02-23] MEDS: BUSPIRONE 10 MG TABLET PO ×2 (07:27→19:26)
[2023-02-23] MEDS: NYSTATIN POWDER 1 APPLIC TOPICAL (07:27)
[2023-02-23] MEDS: FLUOXETINE HCL 20 MG CAPSULE PO (07:27)
[2023-02-23] MEDS: FLUOXETINE HCL 40 MG CAPSULE PO (07:27)
[2023-02-23] MEDS: POTASSIUM CHLORIDE 20 MEQ TAB.ER.PRT 40 MEQ PO ×2 (07:27→16:20)
--- NOTE | 2023-02-23 12:59 | PC.NURSE ---
Status: BP's & HR's reviewed by Dr. Retana. No new order.
[2023-02-23 16:00] VITALS: BP 159/83; PULSE 85
[2023-02-24] MEDS: FLUOXETINE HCL 40 MG CAPSULE PO (07:25)
[2023-02-24] MEDS: BUSPIRONE 10 MG TABLET PO ×2 (07:25→19:15)
[2023-02-24] MEDS: AMLODIPINE 10 MG TABLET PO (07:25)
[2023-02-24] MEDS: FLUOXETINE HCL 20 MG CAPSULE PO (07:26)
[2023-02-24] MEDS: lisinopriL 40 MG TABLET PO (07:26)
[2023-02-24] MEDS: POTASSIUM CHLORIDE 20 MEQ TAB.ER.PRT 40 MEQ PO ×2 (07:26→15:12)
[2023-02-24] MEDS: INSULIN GLARGINE,HUM.REC.ANLOG 100 UNIT/ML INSULN.PEN 22 UNIT SUBCUT (07:33)
[2023-02-25] MEDS: AMLODIPINE 10 MG TABLET PO (07:41)
[2023-02-25] MEDS: BUSPIRONE 10 MG TABLET PO ×2 (07:41→19:26)
[2023-02-25] MEDS: FLUOXETINE HCL 40 MG CAPSULE PO (07:41)
[2023-02-25] MEDS: lisinopriL 40 MG TABLET PO (07:41)
[2023-02-25] MEDS: FLUOXETINE HCL 20 MG CAPSULE PO (07:41)
[2023-02-25] MEDS: POTASSIUM CHLORIDE 20 MEQ TAB.ER.PRT 40 MEQ PO ×2 (07:44→15:23)
[2023-02-25] MEDS: INSULIN GLARGINE,HUM.REC.ANLOG 100 UNIT/ML INSULN.PEN 22 UNIT SUBCUT (07:49)
[2023-02-25] MEDS: LOPERAMIDE HCL 2 MG CAPSULE PO (14:50)
[2023-02-26] MEDS: AMLODIPINE 10 MG TABLET PO (08:06)
[2023-02-26] MEDS: lisinopriL 40 MG TABLET PO (08:07)
[2023-02-26] MEDS: BUSPIRONE 10 MG TABLET PO (08:07)
[2023-02-26] MEDS: POTASSIUM CHLORIDE 20 MEQ TAB.ER.PRT 40 MEQ PO (08:07)
[2023-02-26] MEDS: FLUOXETINE HCL 20 MG CAPSULE PO (08:07)
[2023-02-26] MEDS: FLUOXETINE HCL 40 MG CAPSULE PO (08:07)
[2023-02-26] MEDS: INSULIN GLARGINE,HUM.REC.ANLOG 100 UNIT/ML INSULN.PEN 22 UNIT SUBCUT (08:07)
--- NOTE | 2023-02-26 14:32 | PC.NURSE ---
RECAPITULATION NOTE: Resident was [facility]. They have an extensive medical history including: CVA with history of stroke in 2020, neurogenic bladder, Type 2 diabetes, essential hypertension, major depressive disorder, lumbar spinal stenosis, hyperlipidemia, peripheral neuropathy, peripheral edema, and colon cancer S/P right hemicolectomy. They discharged today to [facility] facility for ongoing care needs since [facility] is closing. Resident was sent with discharge orders, remaining supply of medications, POLST/Advance directives, signed active med list, active care plan and MDS. They did not require any opiates or anxiolytic medications. Belongings were inventoried and signed. Discharge summary completed by provider. Resident remains DNR/DNI - comfort focused. Resident was accompanied by RN/Audrey to the care center. All questions answered.?
== END | DRG 639 ==
PROVIDERS: Family Medicine; Admitting Provider Family Medicine; Family Provider Nurse Practitioner Gerontology; Visit Provider Family Medicine
DX: E11.9 Type 2 diabetes mellitus without complications (principal); I10 Essential (primary) hypertension; Z86.73 Personal history of transient ischemic attack (TIA), and cerebral infarction without residual deficits; I67.9 Cerebrovascular disease, unspecified; F32.A Depression, unspecified; R60.9 Edema, unspecified; H04.123 Dry eye syndrome of bilateral lacrimal glands; G62.9 Polyneuropathy, unspecified; E87.6 Hypokalemia; E78.5 Hyperlipidemia, unspecified; M48.061 Spinal stenosis, lumbar region without neurogenic claudication; K59.00 Constipation, unspecified; N39.8 Other specified disorders of urinary system; L30.9 Dermatitis, unspecified; R21 Rash and other nonspecific skin eruption; H10.029 Other mucopurulent conjunctivitis, unspecified eye; H10.89 Other conjunctivitis
CPT/HCPCS: 36415; 71045; 73560; 80048; 81003; 81015; 83036; 87077; 87086; 87186; 87493; 87502; 87631; 87634; 87635; 87798; 87804; 90471; 90662; A9270

== ENCOUNTER 2023-05-29 16:57 | Emergency (ER) | payer MEDICARE, BC, SELFPAY ==
[2023-05-29] VITALS (8 sets, daily range): BP systolic 175; BP diastolic 79; PULSE 61–66; RESP 16; TEMP 36.9; O2SAT 90–94; BMI 29.9
--- NOTE | 2023-05-29 17:09 | CRLHL7_ITS ---
For Patients: As a result of the Cures Act, medical imaging exams and procedure reports are released immediately into your electronic medical record. You may view this report before your referring provider. If you have questions, please contact your health care provider. Indication: Trauma, fall. Technique: Right knee 3 views. Comparison: None. Findings: Bones: Alignment is normal. No fractures or bone lesions. Diffuse osteopenia. Joint spaces: Moderate arthritic changes in the medial compartment of the patellofemoral joint. Unremarkable knee joint space. No sign of joint effusion. Soft tissues: Unremarkable. Impression: No sign of acute injury. Dictated by Quinton Olivares MD @ 05/29/2023 6:26:13 PM (Electronically Signed)
--- NOTE | 2023-05-29 17:10 | CRLHL7_ITS ---
For Patients: As a result of the Cures Act, medical imaging exams and procedure reports are released immediately into your electronic medical record. You may view this report before your referring provider. If you have questions, please contact your health care provider. INDICATION: Fall, cervical spine injury TECHNIQUE: CT cervical spine without i.v. contrast. Coronal and sagittal reformats were obtained. COMPARISON: None FINDINGS: Alignment: Straightening of the cervical spine is noted. Bone: No acute fractures or aggressive bone lesions are identified. Disc: Moderate degenerative disc disease is present at C4-5 and severe degenerative disc disease is seen at C5-6 and C6-7. Scattered facet osteoarthritis is noted bilaterally. Soft tissue: The prevertebral soft tissues are unremarkable in appearance. The visualized lung apices and mediastinum are unremarkable. Bilateral calcified carotid plaques are noted. IMPRESSION: 1. No acute osseous injuries are identified. Dictated by Horacio Montez MD @ 05/29/2023 6:40:10 PM Please note that all CT scans at this facility use dose modulation, iterative reconstruction, and/or weight-based dosing when appropriate to reduce radiation dose to as low as reasonably achievable. Dictated by: Horacio Montez MD @ 05/29/2023 18:45:52 (Electronically Signed)
--- NOTE | 2023-05-29 17:10 | CRLHL7_ITS ---
For Patients: As a result of the Cures Act, medical imaging exams and procedure reports are released immediately into your electronic medical record. You may view this report before your referring provider. If you have questions, please contact your health care provider. INDICATION: Fall, head injury TECHNIQUE: CT Head without i.v. contrast. Coronal and sagittal reformats were obtained. COMPARISON: None FINDINGS: CSF space: Unremarkable for age. Brain: No evidence of mass, acute infarction or hemorrhage is seen. No mass-effect or midline shift is seen. Mild diffuse cortical atrophy is noted. Encephalomalacia is present within the left frontal lobe white matter and medial left parietal lobe. Calvarium: The visualized paranasal sinuses are well aerated. The mastoid air cells are clear. The patient is status post bilateral cataract removal. The calvarium is unremarkable in appearance with no fractures identified. Bilateral nasal bone fractures are present with overlying soft tissue swelling and gas is seen. IMPRESSION: 1. No evidence of acute infarction, intracranial hemorrhage, or mass-effect seen. Dictated by Horacio Montez MD @ 05/29/2023 6:54:48 PM Please note that all CT scans at this facility use dose modulation, iterative reconstruction, and/or weight-based dosing when appropriate to reduce radiation dose to as low as reasonably achievable. Dictated by: Horacio Montez MD @ 05/29/2023 18:54:53 (Electronically Signed)
--- NOTE | 2023-05-29 17:10 | CRLHL7_ITS ---
For Patients: As a result of the Cures Act, medical imaging exams and procedure reports are released immediately into your electronic medical record. You may view this report before your referring provider. If you have questions, please contact your health care provider. INDICATION: Fall, face injury, fall injury TECHNIQUE: CT maxillofacial without i.v. contrast. Coronal and sagittal reformats were obtained. COMPARISON: None FINDINGS: Bone: Bilateral nasal bone fractures are present. The remainder of the facial bones and mandible are unremarkable. Joint: The temporomandibular joints are unremarkable in appearance. Sinus: Mild mucosal thickening is seen in the inferior maxillary sinuses bilaterally. The ostiomeatal units are patent. The nasal turbinates are normal. Mild rightward deviation of the nasal septum is present. Orbit: The patient is status post bilateral cataract removal. Soft tissue: Soft tissue swelling and soft tissue gas is seen over the nose. IMPRESSION: 1. Bilateral nasal bone fractures are present. Dictated by Horacio Montez MD @ 05/29/2023 6:57:10 PM Please note that all CT scans at this facility use dose modulation, iterative reconstruction, and/or weight-based dosing when appropriate to reduce radiation dose to as low as reasonably achievable. Dictated by: Horacio Montez MD @ 05/29/2023 18:57:41 (Electronically Signed)
--- NOTE | 2023-05-29 17:12 | ED_ITS ---
HPI - Fall General Chief Complaint: Fall/Minor Trauma Stated Complaint: fall Time Seen by Provider: 05/29/23 16:59 History of Present Illness HPI Narrative: This 82-year-old female comes in by ambulance for evaluation of a fall that occurred just prior to arrival. Her daughter is present with her and states that she had a stroke about 4 years ago with some residual right-sided deficit. She does not ambulate on her own. 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 She has some blood in her mouth and nose and does report a headache. She arrives with a C-collar in place. An IV was established by EMS where she did receive some pain medication. She is also reporting some discomfort in her right knee. She does not report any chest pain or abdominal pain. She is not indicating any neck or back pain. Related Data Allergies Allergy/AdvReac Type Severity Reaction Status Date / Time fenofibrate [From Tricor] Allergy Unknown Unverified 12/23/21 14:47 Mfcmelf-QMP-OoK Reductase Allergy Unknown Unverified 12/23/21 14:47 Inhibitor Review of Systems Status of ROS: Reports: 10 or more systems reviewed and unremarkable except as noted in History and below Narrative: Constitutional: No fevers, no weight gain or loss. Eyes: No discharge. No vision changes. HENT: No congestion, no sore throat, no ear pain. She reports a headache. Cardiovascular: No chest pain, no palpitations. Respiratory: No shortness of breath, no wheezes, no cough. Gastrointestinal: No abdominal pain, no vomiting, no diarrhea. Genitourinary: No dysuria, no hematuria. Musculoskeletal: Right knee pain. Skin: No rashes, no pruritis. Neurological: No dizziness, weakness, sensory change, speech change. Endo/Heme/Allergies: No bruising or bleeding. No polydipsia. Pysch: no suicidality, no anxiety, no insomnia. All other systems reviewed and are negative. [facility] Medical History Health care directive on file ?Z78.9 - Other specified health status (ICD-10) Social History Smoking Status: Never smoker Do you use any of these nicotine containing products: None How often do you have a drink containing alcohol: never AUDIT-C Alcohol total score: 0 Non-prescribed substance use: denies use Exam Narrative: Exam Narrative: Constitutional: Well-developed, well-nourished, no acute distress. HEENT: Some blood in the nostrils but no active bleeding. Injury across the bridge of the nose. Dried blood also around the lips of the mouth. Neck: Normal range of motion. Nontender. Supple. No midline tenderness. Heart: Regular. No murmurs. Normal rate. Intact distal pulses. Lungs: Clear to auscultation. No chest discomfort. No wheezes, rhonchi, or rales. Abdomen: Normal bowel sounds. Nontender. No rebound tenderness. Genitalia: Deferred. Back: No midline tenderness. Normal range of motion. Extremities: Normal range of motion. Tenderness in the right knee but no sign of external injury. Bilateral pedal edema. Skin: Intact. No rash. Warm. No erythema or pallor. Neurologic: No altered sensation. No weakness. Alert and oriented. Psychiatric: No suicidality. No anxiety or depression. No insomnia. Nursing notes and vitals signs are reviewed. Const: Vital Signs, click to edit/add: Vital Signs - 24 hr 05/29/23 17:15 05/29/23 18:20 05/29/23 18:30 Temperature 98.4 F Pulse Rate 62 64 Pulse Rate [Pulse Oximeter] 64 Respiratory Rate 16 Blood Pressure [Ri ght Upper Arm] 175/79 H Pulse Oximetry 93 94 94 Oxygen Delivery Me thod Room Air Course Vital Signs Vital signs: Initial Vital Signs Temperature 98.4 F 05/29/23 17:15 Temperature Source Temporal Artery Scan 05/29/23 17:15 Pulse Rate 64 05/29/23 17:15 Respiratory Rate 16 05/29/23 17:15 Blood Pressure 175/79 H 05/29/23 17:15 Blood Pressure Mean 111 H 05/29/23 17:15 Pulse Oximetry 93 05/29/23 17:15 Oxygen Delivery Method Room Air 05/29/23 17:15 Vital Signs Temperature 98.4 F 05/29/23 17:15 Pulse Rate 64 05/29/23 17:15 Respiratory Rate 16 05/29/23 17:15 Blood Pressure 175/79 H 05/29/23 17:15 Pulse Oximetry 93 05/29/23 17:15 Oxygen Delivery Method Room Air 05/29/23 17:15 Temperature 98.4 F 05/29/23 17:15 Pulse Rate 64 05/29/23 18:30 Respiratory Rate 16 05/29/23 17:15 Blood Pressure 175/79 H 05/29/23 17:15 Pulse Oximetry 94 05/29/23 18:30 Oxygen Delivery Method Room Air 05/29/23 17:15 MDM - Fall MDM Narrative Medical decision making narrative: This 82-year-old female comes in for evaluation of a fall that occurred just prior to arrival. CT imaging of the head and C-spine returned with no acute findings. Additionally her right knee was imaged as she was reporting some pain in her right knee. This also returns with no acute findings. CT of the facial bones does show fracture of her nose without any other complication. She does have some superficial abrasions over the bridge of her nose and her upper lip that do not need repair. The patient is okay to return back to her nursing care facility. She does take tramadol there as needed and declines any further need for pain medicine. Imaging Data CT scan - head: Radiologist's impression: No evidence of acute infarction, intracranial hemorrhage, or mass-effect seen. CT Cervical Spine: Radiologist's impression: No acute osseous injuries are identified. CT Facial bones: Radiologist's impression: Bilateral nasal bone fractures are present. XR R Knee: Radiologist's impression: No sign of acute injury. Discharge Plan Discharge Clinical Impression: Fracture, nasal Patient Disposition: Home w/ Parent or Adult Condition: Stable Additional Instructions: Activity as tolerated. Continue current plans otherwise. Follow up with MD return if worsening. Follow Up/Referrals: Bee Hernandez MD [Primary Care Provider] - Stand Alone Forms: [employer] Info Instructions
--- NOTE | 2023-05-29 19:58 | ED.NURSE ---
emptied pt catheter, 350ml output
--- NOTE | 2023-05-29 20:52 | ED.NURSE ---
dispatch called for EMS wheelchair transport, no ETA given. pt updated
[2023-05-29] MEDS: ACETAMINOPHEN 500 MG TABLET 1000 MG PO (21:10)
--- NOTE | 2023-05-29 22:08 | ED.NURSE ---
facility contacted that EMS has departed the hospital with the pt. informed caregiver (Kathryn) that EMS should be arriving in the next 10-15 min
== END 2023-05-29 21:50 | disposition home or self-care (01) ==
PROVIDERS: Emergency Provider Emergency Medicine Emergency Medical Services
DX: S02.2XXA Fracture of nasal bones, initial encounter for closed fracture (principal); M25.561 Pain in right knee; W01.0XXA Fall on same level from slipping, tripping and stumbling without subsequent striking against object, initial encounter; Y92.099 Unspecified place in other non-institutional residence as the place of occurrence of the external cause
CPT/HCPCS: 70450; 70486; 72125; 73562; 99284; 99285; A9270

== ENCOUNTER 2023-05-29 21:46 | Outpatient (CLI) | payer MEDICARE, BC, SELFPAY ==
--- OUTSIDE RECORDS SUMMARY | 2023-05-31 09:26 | XMS_ITS | CCD ---
Author Name Anca Pierce Address [address] [place] [address] Phone Organization [facility] Phone Care Team Providers Care Fire Control Technician Name Role Phone Anca Pierce Primary Care Provider Unava ilable Unavailable Chronic Care Management Unavaila ble Summary Purpose DataExchange Insurance Providers Payer name Policy type / Coverage type Covered democrat ID Effective Begin Date Effective End Date Medicare [place] Medicare Part B [id number] Unknown Unknown BC[place] of [place] Medicare Part B [id number] Unknown Unk nown Family history Sister Diagnosis Age At Onset Breast cancer Unknown Cancer Unknown Social History Social History Element Codes Description Effec tive Dates Marital status Unknown Significant Othe r Dheeraj 03/23/[address]: [id number] Has never s moked or chewed tobacco 03/23/[address]: 944167276 No Alcohol Consum ption 03/23/2023 Children Unknown Has Children daughter 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 [facility] 03/23/2023 Allergies, Adverse Reactions, Alerts Substance Reaction Codes Entered Date Inactivated Date Status fenofibrate RxNorm: 8703 03/26/2023 No Inactive Da te Active Statins Unknown 03/26/2023 No Inactive Date Ac tive Problems Condition Codes Effective Dates Condition St atus Dementia ICD-10: F03.90 ICD-9: 294.20 04/23/2023 Active Essential (primary) hypertension ICD-10: I10 ICD-9: 401.9 04/23/2023 Active Hemiparesis affecting right side as late effect of cerebrovascular accident ICD-10: I69.351 ICD-9: 438.20 04/23/2023 Active Hemorrhoids ICD-10: K64.9 ICD-9: 455.6 04/23/2023 Active Neurogenic bladder ICD-10: N31.9 ICD-9: 596.54 04/23/2023 Active Rash of neck ICD-10: R21 ICD-9: 782.1 04/23/2023 Active Type 2 diabetes mellitus ICD-10: E11.9 ICD-9: 250.00 04/23/2023 Active Psoriasis ICD-10: L40.9 ICD-9: 696.1 04/23/2023 Resolved Diabetes mellitus Type 2 Unknown 03/26/2023 Act mihai Aphasia ICD-10: R47.01 ICD-9: 784.3 03/26/2023 Active History of colon cancer ICD-10: Z85.038 ICD-9: V10.05 03/26/2023 Active History of CVA (cerebrovascu lar accident) ICD-10: Z86.73 ICD-9: V12.54 03/26/2023 Active History of right breast cancer ICD-10: Z 85.3 ICD-9: V10.3 03/26/2023 Active HLD (hyperlipidemia) ICD-10: E78.5 ICD-9: 272.4 03/26/2023 Active S/P colectomy ICD-10: Z90.49 ICD-9: V45.89 03/26/2023 Active Spinal stenosis ICD-10: M48.00 ICD-9: 724.00 03/26/2023 Active Suprapubic catheter ICD-10: Z93.59 ICD-9: V44.59 03/26/2023 Active Unsteady gait ICD-10: R26.81 ICD-9: 781.2 03/26/2023 Active Contact with and (suspected) exposure to covid-19 ICD-10: Z20.822 ICD-9: V01.79 06/15/2021 Active Medications Medication Codes Instructions Start Date Stop Date Status Fill Instructions erythromycin 5 mg/gram (0.5 %) eye ointment RxNorm: 860565 Apply 1 Ribbon Ophthalmic QID Apply to RIGHT EYE. 3 023 Inactive acetaminophen 325 mg tablet RxNorm: 419345 Give 1 Tablet(s) Oral Q4H every four hours as needed 3 023 Inactive Claritin 10 mg tablet RxNorm: 581508 Give 1 Tablet(s) Oral Q24H every 24 Hours as needed 3 No Stop Date Active Milk Of Magnesia Concentrated 2,400 mg/10 mL oral suspension RxNorm: 143270 Give 30 Milliliter(s) Oral Q24H every 24 Hours as needed for constipation 3 No Stop Date Active aspirin 325 mg tablet RxNorm: 214070 Chew 1 Tablet(s) Oral Q24H every 24 Hours as needed for chest pain PRN 3 No Stop Date Active hydrocortisone 1 % topical cream RxNorm: 284842 Topical apply to affected skin area topically PRN for insect bites, rashes, minor skin irritations up to 4x daily 3 No Stop Date Active guaifenesin 100 mg/5 mL oral liquid RxNorm: 188118 Give 10 Milliliter(s) Oral Q4H every four hours as needed for cough/congestion 3 No Stop Date Active Antacid (calcium carbonate) 200 mg calcium (500 mg) chewable tablet RxNorm: 481489 Chew 2 Tablet(s) Oral Q1H every hour as needed max 15 tabs/24 hours 3 No Stop Date Active bisacodyl 10 mg rectal suppository RxNorm: 128933 Insert 1 Suppository Rectal Q24H every 24 Hours as needed for constipation 3 No Stop Date Active loperamide 2 mg tablet RxNorm: 186283 Give 1 Tablet(s) Oral Q24H every 24 Hours as needed for diarrhea 3 No Stop Date Active Hemorrhoid ointment RxNorm: 5338943 Apply 1 Application Rectal QID as needed for hemorrhoid pain. 3 023 Inactive or whatever size tube pharmacy holds. Hemorrhoid ointment RxNorm: 8895492 Apply 1 Application Rectal QID as needed for hemorrhoid pain. 3 023 Inactive or whatever size tube pharmacy holds. triamcinolone acetonide 0.025 % topical cream RxNorm: 4074764 Apply 1 Application Topical BID to psoriatic patches until healed, then BID PRN 3 024 Active triamcinolone acetonide 0.025 % topical cream RxNorm: 8023278 Apply 1 Application Topical BID to psoriatic patches until healed, then BID PRN 3 023 Inactive ketoconazole 2 % shampoo RxNorm: 213892 Topical apply to scalp topically in the evening every sun, and sunday, apply during all showers 3 No Stop Date Active lisinopril 40 mg tablet RxNorm: 158787 Give 1 Tablet(s) Oral QD 3 No Stop Date Active buspirone 10 mg tablet RxNorm: 882625 Give 1 Tablet(s) Oral BID 3 No Stop Date Active tolterodine 2 mg tablet RxNorm: 397238 Give 1 Tablet(s) Oral BID 3 No Stop Date Active nystatin 100,000 unit/gram topical powder RxNorm: 227225 Apply Topical as needed apply under breasts and groin topically PRN for yeast up to 2x daily 3 No Stop Date Active potassium chloride ER 20 mEq tablet,extended release RxNorm: 489836 Give 2 Tablet(s) Oral BID 3 No Stop Date Active insulin glargine (U-100) 100 unit/mL (3 mL) subcutaneous pen RxNorm: 047192 Unit(s) Subcutaneous inject 22 units SQ one time a day, give with breakfast 3 No Stop Date Active fluoxetine 20 mg capsule RxNorm: 633728 Give 1 Capsule(s) Oral QD give with 40 mg cap 3 No Stop Date Active metoprolol succinate ER 50 mg tablet,extended release 24 hr RxNorm: 396237 Give 1/2 Tablet(s) Oral QD 3 023 Inactive fluoxetine 40 mg capsule RxNorm: 571489 Give 1 Capsule(s) Oral QD give with 20 mg cap 3 No Stop Date Active amlodipine 10 mg tablet RxNorm: 484209 Take 1 Tablet(s) Oral QD 3 No Stop Date Active pregabalin 300 mg capsule RxNorm: 927048 Take 1 Capsule(s) Oral BID 3 024 Active pregabalin 300 mg capsule RxNorm: 230963 Take 1 Capsule(s) Oral BID 3 023 Inactive menthol 1.1 mg lozenges RxNorm: 385397 mucous membrane 3 Active Baby Wash topical RxNorm: topical 3 Active veeju-gqkeu-dzvrcq x-pramoxine topical RxNorm: 650856 topical 3 Active Medication Administered No Medication Administered data Results Observation Observation Code Item Item Code Result Date S ervice Location [facility] 37222-4 01/2804/23/2023 Unknown PHQ9 PHQ9 61312-3 0 04/23/2023 Unknown Procedures Procedure Codes Date SYS BP LESS 140 CPT-4: G8752 04/23/2023 ZABALA BP LESS 90 CPT-4: G8754 04/23/2023 PT INELIG NEG SCRN DEPRES SNOMED CT: 428 [id number] CPT-4: G8510 04/23/2023 ADVNC CARE PLAN IN RCRD CPT-4: 1157F 04/23/20 FXNL STATUS ASSESSED CPT-4: 1170F 04/23/2023 AMNT PAIN NOTED NONE PRSNT CPT-4: 1126F 04/23 FALL RISK ASSESSMENT DOCD CPT-4: 3288F 2022 Medicare Annual Wellness Visit- Subseque nt SNOMED CT: [id number] CPT-4: G0439 04/23/2023 Vital Signs Date Vital 04/23/2023 Blood Pressure 1: 118/79 Code: 8480-6 Heart Rate 1: 78 bpm Code: 8867-4 Respiratory Rate: 19 bpm SpO2: 96% Temperature: 36.4 (C) / 97.6 (F) Weight: 189 lbs 8 oz Code: 3141-9 Reason For Visit No Reason For Visit data Encounters Encounter Performer Location Location Address Codes Date ([id number]) Home or Residence Visit Est Pt - Moderate Level, 40 mins Diagnosis: Hemorrhoids[ICD10: K64.9] Diagnosis: Psoriasis[ICD10: L40.9] Diagnosis: Dementia[ICD10: F03.90] Diagnosis: Essential (primary) hypertension[ICD10: I10] Diagnosis: Neurogenic bladder[ICD10: N31.9] Diagnosis: Type 2 diabetes mellitus[ICD10: E11.9] Diagnosis: Hemiparesis affecting right side as late effect of cerebrovascular accident[ICD10: I69.351] Diagnosis: Rash of neck[ICD10: R21] [facility] [address] [place] [address] CPT-4: 61456 Plan of Care Planned Activity Notes Codes Status Date Patient Education: Patient Medication Summary Completed 04/23/2023 Patient Education: Influenza Vaccine Completed 04/23/2023 Appointment: Isabel Connor WPtel: [id number] PROGRAM MANAGEMENT INTERN 03/26/2023 Instructions Comment Date Shaista has resided at [facility] since 02/26/2023, previously lived [facility]. , has 3 children. Worked many jobs, her most favorite job was at [employer].??PMH: History of breast cancer s/p lumpectomy (2018), history of colon neoplasm s/p right hemicolectomy (2012), dementia, history of CVA (July 2019), aphasia, dysphagia, neurogenic bladder s/p supratherapeutic catheter (08/2020), type 2 diabetes, peripheral neuropathy, lumbar spinal stenosis, essential HTN, HLD.??Primary contact: Katarzyna (Daughter)POLST: DNR/DNI/CC (2020)Lab Schedule: As needed for comfort.Specialists: [facility] for suprapubic cath (change monthly) 03/30/2023 Hypertension BP 118/79, stable. Continue on current regimen. Diabetes Does not receive blood sugar checks and is not managed on diabetic medications at this time. Check A1c routinely.?? Neurocognitive Disorders SLUMS 01/28. Appropriate for AL setting. No behavioral concerns reported by staff. Not an elopement risk at this time. No recent falls. Continue to monitor and expect gradual decline. Rash of neck Continue triamcinolone cream to itchy areas on neck. Continue to monitor for new or worsening symptoms. No history of skin disease noted in previous records. Neurogenic bladder Urine yellow and clear in catheter bag. Patient denies discomfort or issues with suprapubic catheter. Continue home health for catheter care. Continue to monitor for s/s of infection given increased risk with catheter insertion. Hemorrhoids Hemorrhoid cream for symptoms, continue to monitor. . 04/23/2023
--- OUTSIDE RECORDS SUMMARY | 2023-05-31 09:26 | XMS_ITS | CCD ---
Author Name Unknown Organization Unknown Care Team Providers Care Parks Worker Name Role Phone Anca Pierce Primary Care Provider Unanata ilable Unavailable Chronic Care Management Unavaila ble Summary Purpose DataExchange Insurance Providers Payer name Policy type / Coverage type Covered constitution party ID Effective Begin Date Effective End Date Medicare [place] Medicare Part B [id number] Unknown Unknown [place] Medicare Part B [id number] Unknown Unk nown Family History Family History data not found Problems Condition Codes Effective Dates Condition St atus Contact with and (suspected) exposure to covid-19 ICD-10: Z20.822 ICD-9: V01.79 06/15/2021 Active Medications Medication Codes Instructions Start Date Stop Date Status Fill Instructions pregabalin 300 mg capsule RxNorm: 319970 Take 1 Capsule(s) Oral BID 3 08/26/19 24 Active pregabalin 300 mg capsule RxNorm: 131570 Take 1 Capsule(s) Oral BID 3 02/29/20 23 Inactive Medication Administered No Medication Administered data Reason For Visit No Reason For Visit data Instructions Comment Date Shaista has resided at [facility] since 02/26/2023, previously lived [facility]. , has 3 children. Worked many jobs, her most favorite job was at [employer].??PMH: History of breast cancer s/p lumpectomy (2018), history of colon neoplasm s/p right hemicolectomy (2012), dementia, history of CVA (July 2019), aphasia, dysphagia, neurogenic bladder s/p supratherapeutic catheter (08/2020), type 2 diabetes, peripheral neuropathy, lumbar spinal stenosis, essential HTN, HLD.??Primary contact: Katarzyna (Daughter)POLST: DNR/DNI/CC (2020)Lab Schedule: As needed for comfort.Specialists: [facility] for suprapubic cath (change monthly) 03/30/2023
--- OUTSIDE RECORDS SUMMARY | 2023-05-31 09:26 | XMS_ITS | CCD ---
Author Name Anca Pierce Address [address] [facility] [address] [place] [address] Phone Organization [facility] Phone Care Team Providers Care Insurance Compliance Analyst Name Role Phone Anca Pierce Primary Care Provider Unava ilable Unavailable Chronic Care Management Unavaila ble Summary Purpose DataExchange Insurance Providers Payer name Policy type / Coverage type Covered alliance party ID Effective Begin Date Effective End Date Medicare [place] Medicare Part B [id number] Unknown Unknown [place] of [place] Medicare Part B [id number] Unknown Unk nown Family history Sister Diagnosis Age At Onset Breast cancer Unknown Cancer Unknown Social History Social History Element Codes Description Effec tive Dates Marital status Unknown Significant Othe r Dheeraj 03/23/[address]: 813573526 Has never s moked or chewed tobacco 03/23/[address]: 423930359 No Alcohol Consum ption 03/23/2023 Children Unknown Has Children daughter 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 [facility] 03/23/2023 Allergies, Adverse Reactions, Alerts Substance Reaction Codes Entered Date Inactivated Date Status fenofibrate RxNorm: 8703 03/26/2023 No Inactive Da te Active Statins Unknown 03/26/2023 No Inactive Date Ac tive Problems Condition Codes Effective Dates Condition St atus Diabetes mellitus Type 2 Unknown 03/26/2023 Act mihai Aphasia ICD-10: R47.01 ICD-9: 784.3 03/26/2023 Active Dementia ICD-10: F03.90 ICD-9: 294.20 03/26/2023 Active Essential (primary) hypertension ICD-10: I10 ICD-9: 401.9 03/26/2023 Active Hemiparesis affecting right side as late effect of cerebrovascular accident ICD-10: I69.351 ICD-9: 438.20 03/26/2023 Active History of colon cancer ICD-10: Z85.038 ICD-9: V10.05 03/26/2023 Active History of CVA (cerebrovascu lar accident) ICD-10: Z86.73 ICD-9: V12.54 03/26/2023 Active History of right breast cancer ICD-10: Z 85.3 ICD-9: V10.3 03/26/2023 Active HLD (hyperlipidemia) ICD-10: E78.5 ICD-9: 272.4 03/26/2023 Active Neurogenic bladder ICD-10: N31.9 ICD-9: 596.54 03/26/2023 Active S/P colectomy ICD-10: Z90.49 ICD-9: V45.89 03/26/2023 Active Spinal stenosis ICD-10: M48.00 ICD-9: 724.00 03/26/2023 Active Suprapubic catheter ICD-10: Z93.59 ICD-9: V44.59 03/26/2023 Active Type 2 diabetes mellitus ICD-10: E11.9 ICD-9: 250.00 03/26/2023 Active Unsteady gait ICD-10: R26.81 ICD-9: 781.2 03/26/2023 Active Contact with and (suspected) exposure to covid-19 ICD-10: Z20.822 ICD-9: V01.79 06/15/2021 Active Medications Medication Codes Instructions Start Date Stop Date Status Fill Instructions ketoconazole 2 % shampoo RxNorm: 227613 Topical apply to scalp topically in the evening every sun, and sunday, apply during all showers 3 No Stop Date Active lisinopril 40 mg tablet RxNorm: 772167 Give 1 Tablet(s) Oral QD 3 No Stop Date Active buspirone 10 mg tablet RxNorm: 838773 Give 1 Tablet(s) Oral BID 3 No Stop Date Active tolterodine 2 mg tablet RxNorm: 702529 Give 1 Tablet(s) Oral BID 3 No Stop Date Active nystatin 100,000 unit/gram topical powder RxNorm: 768519 Apply Topical as needed apply under breasts and groin topically PRN for yeast up to 2x daily 3 No Stop Date Active potassium chloride ER 20 mEq tablet,extended release RxNorm: 297642 Give 2 Tablet(s) Oral BID 3 No Stop Date Active insulin glargine (U-100) 100 unit/mL (3 mL) subcutaneous pen RxNorm: 473412 Unit(s) Subcutaneous inject 22 units SQ one time a day, give with breakfast 3 No Stop Date Active fluoxetine 20 mg capsule RxNorm: 417914 Give 1 Capsule(s) Oral QD give with 40 mg cap 3 No Stop Date Active metoprolol succinate ER 50 mg tablet,extended release 24 hr RxNorm: 192109 Give 1/2 Tablet(s) Oral QD 3 05/22/20 23 Inactive fluoxetine 40 mg capsule RxNorm: 863352 Give 1 Capsule(s) Oral QD give with 20 mg cap 3 No Stop Date Active amlodipine 10 mg tablet RxNorm: 975255 Take 1 Tablet(s) Oral QD 3 No Stop Date Active pregabalin 300 mg capsule RxNorm: 292731 Take 1 Capsule(s) Oral BID 3 08/26/19 24 Active pregabalin 300 mg capsule RxNorm: 927596 Take 1 Capsule(s) Oral BID 3 02/29/20 23 Inactive Medication Administered No Medication Administered data Procedures Procedure Codes Date SYS BP > OR = 140 CPT-4: G8753 03/26/2023 ZABALA BP LESS 90 CPT-4: G8754 03/26/2023 Vital Signs Date Vital 03/26/2023 Blood Pressure 1: 147/76 Code: 8480-6 BMI: 33.1 Code: 04073-3 Heart Rate 1: 69 bpm Code: 8867-4 Height: 5'3 Code: 8302-2 Respiratory Rate: 16 bpm Temperature: 36.3 (C) / 97.4 (F) Weight: 187 lbs Code: 3141-9 Reason For Visit No Reason For Visit data Encounters Encounter Performer Location Location Address Codes Date ([address]) Home or Residence Visit DELIVERY HELPER - Moderate Level, 60 mins Diagnosis: Spinal stenosis[ICD10: M48.00] Diagnosis: History of CVA (cerebrovascular accident)[ICD10: Z86.73] Diagnosis: Hemiparesis affecting right side as late effect of cerebrovascular accident[ICD10: I69.351] Diagnosis: Aphasia[ICD10: R47.01] Diagnosis: Dementia[ICD10: F03.90] Diagnosis: Type 2 diabetes mellitus[ICD10: E11.9] Diagnosis: Neurogenic bladder[ICD10: N31.9] Diagnosis: Suprapubic catheter[ICD10: Z93.59] Diagnosis: S/P colectomy[ICD10: Z90.49] Diagnosis: History of right breast cancer[ICD10: Z85.3] Diagnosis: Essential (primary) hypertension[ICD10: I10] Diagnosis: HLD (hyperlipidemia)[ICD1 0: E78.5] Diagnosis: History of colon cancer[ICD10: Z85.038] Diagnosis: Unsteady gait[ICD10: R26.81] Anca Connor [address] [place] [address] CPT-4: 16453 Plan of Care Planned Activity Notes Codes Status Date Patient Education: Patient Medication Summary Completed 03/26/2023 Patient Education: Influenza Vaccine Completed 03/26/2023 Patient Education: Alzheimer''s Disease Completed 03/26/2023 Patient Education: Dementia Complete d 03/26/2023 Instructions Comment Date Shaista has resided at [facility] since 02/26/2023, previously lived [facility]. , has 3 children. Worked many jobs, her most favorite job was at [employer].??PMH: History of breast cancer s/p lumpectomy (2018), history of colon neoplasm s/p right hemicolectomy (2012), dementia, history of CVA (July 2019), aphasia, dysphagia, neurogenic bladder s/p supratherapeutic catheter (08/2020), type 2 diabetes, peripheral neuropathy, lumbar spinal stenosis, essential HTN, HLD.??Primary contact: Katarzyna (Daughter)POLST: DNR/DNI/CC (2020)Lab Schedule: As needed for comfort.Specialists: [facility] for suprapubic cath (change monthly) 03/30/2023 History of colon cancer - No longer receiving colonoscopies. No colostomy bag in place. Continue to monitor with comfort being priority for goals of care. Spinal stenosis Denies current pain today, uses wheelchair for ambulation. Continue pregabalin. Hypertension BP 147/76, stable. Continue to monitor on amlodipine, lisinopril, and metoprolol succinate. Neurogenic bladder Continue home health plan as it has been effective for patient. Daughter is OT and involved in care. Hyperlipidemia - Not currently managed on statin, labs as needed given comfort-focused care Diabetes - No more blood sugar checks Aphasia - Able to answer questions on exam. Speech minimal. . 03/26/2023
--- OUTSIDE RECORDS SUMMARY | 2023-05-31 09:26 | XMS_ITS | CCD ---
Author Name Unknown Organization Unknown Care Team Providers Care Store Director Name Role Phone Anca Pierce Primary Care Provider Unanata ilable Unavailable Chronic Care Management Unavaila ble Summary Purpose DataExchange Insurance Providers Payer name Policy type / Coverage type Covered alliance party ID Effective Begin Date Effective End Date Medicare [place] Medicare Part B [id number] Unknown Unknown [place] Medicare Part B [id number] Unknown Unk nown Family history Sister Diagnosis Age At Onset Breast cancer Unknown Cancer Unknown Social History Social History Element Codes Description Effec tive Dates Marital status Unknown Significant Othe r Dheeraj 03/23/[address]: 103135437 Has never s moked or chewed tobacco 03/23/[address]: 124732066 No Alcohol Consum ption 03/23/2023 Children Unknown Has Children daughter 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 [facility] 03/23/2023 Allergies, Adverse Reactions, Alerts Substance [...] Start Date Stop Date Status Fill Instructions triamcinolone acetonide 0.025 % topical cream RxNorm: 9815462 Apply 1 Application Topical BID to psoriatic patches until healed, then BID PRN 3 03/29/20 23 Inactive triamcinolone acetonide 0.025 % topical cream RxNorm: 2996363 Apply 1 Application Topical BID to psoriatic patches until healed, then BID PRN 3 07/26/19 24 Active ketoconazole 2 % shampoo RxNorm: 766476 Topical apply to scalp topically in the evening every sun, and sunday, apply during all showers 3 No Stop Date Active lisinopril 40 mg tablet RxNorm: 588886 Give 1 Tablet(s) Oral QD 3 No Stop Date Active buspirone 10 mg tablet RxNorm: 585653 Give 1 Tablet(s) Oral BID 3 No Stop Date Active tolterodine 2 mg tablet RxNorm: 656940 Give 1 Tablet(s) Oral BID 3 No Stop Date Active nystatin 100,000 unit/gram topical powder RxNorm: 680480 Apply Topical as needed apply under breasts and groin topically PRN for yeast up to 2x daily 3 No Stop Date Active potassium chloride ER 20 mEq tablet,extended release RxNorm: 698068 Give 2 Tablet(s) Oral BID 3 No Stop Date Active insulin glargine (U-100) 100 unit/mL (3 mL) subcutaneous pen RxNorm: 256943 Unit(s) Subcutaneous inject 22 units SQ one time a day, give with breakfast 3 No Stop Date Active fluoxetine 20 mg capsule RxNorm: 286723 Give 1 Capsule(s) Oral QD give with 40 mg cap 3 No Stop Date Active metoprolol succinate ER 50 mg tablet,extended release 24 hr RxNorm: 435353 Give 1/2 Tablet(s) Oral QD 3 05/22/20 23 Inactive fluoxetine 40 mg capsule RxNorm: 514832 Give 1 Capsule(s) Oral QD give with 20 mg cap 3 No Stop Date Active amlodipine 10 mg tablet RxNorm: 986286 Take 1 Tablet(s) Oral QD 3 No Stop Date Active pregabalin 300 mg capsule RxNorm: 723035 Take 1 Capsule(s) Oral BID 3 08/26/19 24 Active pregabalin 300 mg capsule RxNorm: 972035 Take 1 Capsule(s) Oral BID 3 02/29/20 23 Inactive Medication Administered No Medication Administered data Reason For Visit No Reason For Visit data Instructions Comment Date Shaista has resided at [facility] since 02/26/2023, previously lived [facility]. , has 3 children. Worked many jobs, her most favorite job was at [employer]??PMH: History of breast cancer s/p lumpectomy (2018), history of colon neoplasm s/p right hemicolectomy (2012), dementia, history of CVA (July 2019), aphasia, dysphagia, neurogenic bladder s/p supratherapeutic catheter (08/2020), type 2 diabetes, peripheral neuropathy, lumbar spinal stenosis, essential HTN, HLD.??Primary contact: Katarzyna (Daughter)POLST: DNR/DNI/CC (2020)Lab Schedule: As needed for comfort.Specialists: [facility] for suprapubic cath (change monthly) 03/30/2023
--- OUTSIDE RECORDS SUMMARY | 2023-05-31 09:26 | XMS_ITS | CCD ---
Author Name Unknown Organization Unknown Care Team Providers Care Manager Knowledge Name Role Phone Anca Pierce Primary Care Provider Unanata ilable Unavailable Chronic Care Management Unavaila ble Summary Purpose DataExchange Insurance Providers Payer name Policy type / Coverage type Covered alliance party ID Effective Begin Date Effective End Date Medicare [place] Medicare Part B [id number] Unknown Unknown [place] Medicare Part B [id number] Unknown Unk nown Family history Sister Diagnosis Age At Onset Breast cancer Unknown Cancer Unknown Social History Social History Element Codes Description Effec tive Dates Marital status Unknown Significant Othe r Dheeraj 03/23/[address]: 628572478 Has never s moked or chewed tobacco 03/23/[address]: 118024691 No Alcohol Consum ption 03/23/2023 Children Unknown Has Children daughter 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 [facility] 03/23/2023 Allergies, Adverse Reactions, Alerts Substance [...] Start Date Stop Date Status Fill Instructions Hemorrhoid ointment RxNorm: 9355042 Apply 1 Application Rectal QID as needed for hemorrhoid pain. 3 04/11/20 23 Inactive or whatever size tube pharmacy holds. Hemorrhoid ointment RxNorm: 8373433 Apply 1 Application Rectal QID as needed for hemorrhoid pain. 3 05/10/20 23 Inactive or whatever size tube pharmacy holds. triamcinolone acetonide 0.025 % topical cream RxNorm: 3200650 Apply 1 Application Topical BID to psoriatic patches until healed, then BID PRN 3 07/26/19 24 Active triamcinolone acetonide 0.025 % topical cream RxNorm: 0611848 Apply 1 Application Topical BID to psoriatic patches until healed, then BID PRN 3 03/29/20 23 Inactive ketoconazole 2 % shampoo RxNorm: 177671 Topical apply to scalp topically in the evening every sun, and sunday, apply during all showers 3 No Stop Date Active lisinopril 40 mg tablet RxNorm: 594088 Give 1 Tablet(s) Oral QD 3 No Stop Date Active buspirone 10 mg tablet RxNorm: 029463 Give 1 Tablet(s) Oral BID 3 No Stop Date Active tolterodine 2 mg tablet RxNorm: 237184 Give 1 Tablet(s) Oral BID 3 No Stop Date Active nystatin 100,000 unit/gram topical powder RxNorm: 461695 Apply Topical as needed apply under breasts and groin topically PRN for yeast up to 2x daily 3 No Stop Date Active potassium chloride ER 20 mEq tablet,extended release RxNorm: 133818 Give 2 Tablet(s) Oral BID 3 No Stop Date Active insulin glargine (U-100) 100 unit/mL (3 mL) subcutaneous pen RxNorm: 540965 Unit(s) Subcutaneous inject 22 units SQ one time a day, give with breakfast 3 No Stop Date Active fluoxetine 20 mg capsule RxNorm: 993622 Give 1 Capsule(s) Oral QD give with 40 mg cap 3 No Stop Date Active metoprolol succinate ER 50 mg tablet,extended release 24 hr RxNorm: 658453 Give 1/2 Tablet(s) Oral QD 3 05/22/20 23 Inactive fluoxetine 40 mg capsule RxNorm: 596238 Give 1 Capsule(s) Oral QD give with 20 mg cap 3 No Stop Date Active amlodipine 10 mg tablet RxNorm: 887557 Take 1 Tablet(s) Oral QD 3 No Stop Date Active pregabalin 300 mg capsule RxNorm: 264602 Take 1 Capsule(s) Oral BID 3 08/26/19 24 Active pregabalin 300 mg capsule RxNorm: 719101 Take 1 Capsule(s) Oral BID 3 02/29/20 23 Inactive Medication Administered No Medication Administered data Reason For Visit No Reason For Visit data Instructions Comment Date Shaista has resided at [facility] since 02/26/2023, previously lived [facility]. , has 3 children. Worked many jobs, her most favorite job was at [employer].??PMH: History of breast cancer s/p lumpectomy (2018), history of colon neoplasm s/p right hemicolectomy (2012), dementia, history of CVA (July 2019), aphasia, dysphagia, neurogenic bladder s/p supratherapeutic catheter (08/2020), type 2 diabetes, peripheral neuropathy, lumbar spinal stenosis, essential HTN, HLD.??Primary contact: Katarzyna (Daughter)POLST: DNR/DNI/CC (2020)Lab Schedule: As needed for comfort.Specialists: [facility] for suprapubic cath (change monthly) 03/30/2023
--- OUTSIDE RECORDS SUMMARY | 2023-05-31 09:26 | XMS_ITS | CCD ---
Author Name Tavo Lund MD Address [address] [address] Phone Organization [facility] Phone Care Team Providers Care Internal Communications Intern Name Role Phone Anca Pierce Primary Care Provider Unava ilable Unavailable Chronic Care Management Unavaila ble Summary Purpose DataExchange Insurance Providers Payer name Policy type / Coverage type Covered democrat ID Effective Begin Date Effective End Date Medicare [place] Medicare Part B [id number] Unknown Unknown [place] Medicare Part B [id number] Unknown Unk nown Family History Family History data not found Problems Condition Codes Effective Dates Condition St atus Contact with and (suspected) exposure to covid-19 ICD-10: Z20.822 ICD-9: V01.79 06/15/2021 Active Medication Administered No Medication Administered data Reason For Visit No Reason For Visit data Encounters Encounter Performer Location Location Address Codes Date ) EST. PATIENT, LEVEL I w/ CS modifier Diagnosis: Contact with and (suspected) exposure to covid-19[ICD10: Z20.822] [facility] [place] [address] CPT-4: 83080 06/15/2021 Instructions Comment Date Shaista has resided at [facility] since 02/26/2023, previously lived [facility]. , has 3 children. Worked many jobs, her most favorite job was at [employer]??PMH: History of breast cancer s/p lumpectomy (2018), history of colon neoplasm s/p right hemicolectomy (2012), dementia, history of CVA (July 2019), aphasia, dysphagia, neurogenic bladder s/p supratherapeutic catheter (08/2020), type 2 diabetes, peripheral neuropathy, lumbar spinal stenosis, essential HTN, HLD.??Primary contact: Katarzyna (Daughter)POLST: DNR/DNI/CC (2020)Lab Schedule: As needed for comfort.Specialists: [facility] for suprapubic cath (change monthly) 03/30/2023
--- OUTSIDE RECORDS SUMMARY | 2023-05-31 09:27 | XMS_ITS | CCD ---
Author Name Talia Todd DO Address [address] [facility] [address] [facility] [address] [place] [address] [facility] Phone Care Team Providers Care Warehouse Shift Supervisor Name Role Phone Anca Pierce Primary Care Provider Unava ilable Unavailable Chronic Care Management Unavaila ble Summary Purpose DataExchange Insurance Providers Payer name Policy type / Coverage type Covered alliance party ID Effective Begin Date Effective End Date Medicare [place] Medicare Part B [id number] Unknown Unknown [place] of [place] Medicare Part B [id number] Unknown Unk nown Family history Sister Diagnosis Age At Onset Breast cancer Unknown Cancer Unknown Social History Social History Element Codes Description Effec tive Dates Marital status Unknown Significant Othe r Dheeraj 03/23/[address]: 183112538 Has never s moked or chewed tobacco 03/23/[address]: 557105120 No Alcohol Consum ption 03/23/2023 Children Unknown Has Children daughter 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 [facility] 03/23/2023 Allergies, Adverse Reactions, Alerts Substance [...] 5 mg/gram (0.5 %) eye ointment RxNorm: 369409 Apply 1 Ribbon Ophthalmic QID Apply to RIGHT EYE. 3 023 Inactive acetaminophen 325 mg tablet RxNorm: 795087 Give 1 Tablet(s) Oral Q4H every four hours as needed 3 023 Inactive Claritin 10 mg tablet RxNorm: 065888 Give 1 Tablet(s) Oral Q24H every 24 Hours as needed 3 No Stop Date Active Milk Of Magnesia Concentrated 2,400 mg/10 mL oral suspension RxNorm: 207777 Give 30 Milliliter(s) Oral Q24H every 24 Hours as needed for constipation 3 No Stop Date Active aspirin 325 mg tablet RxNorm: 505429 Chew 1 Tablet(s) Oral Q24H every 24 Hours as needed for chest pain PRN 3 No Stop Date Active hydrocortisone 1 % topical cream RxNorm: 905530 Topical apply to affected skin area topically PRN for insect bites, rashes, minor skin irritations up to 4x daily 3 No Stop Date Active guaifenesin 100 mg/5 mL oral liquid RxNorm: 593411 Give 10 Milliliter(s) Oral Q4H every four hours as needed for cough/congestion 3 No Stop Date Active Antacid (calcium carbonate) 200 mg calcium (500 mg) chewable tablet RxNorm: 061967 Chew 2 Tablet(s) Oral Q1H every hour as needed max 15 tabs/24 hours 3 No Stop Date Active bisacodyl 10 mg rectal suppository RxNorm: 431576 Insert 1 Suppository Rectal Q24H every 24 Hours as needed for constipation 3 No Stop Date Active loperamide 2 mg tablet RxNorm: 235182 Give 1 Tablet(s) Oral Q24H every 24 Hours as needed for diarrhea 3 No Stop Date Active Hemorrhoid ointment RxNorm: 3304536 Apply 1 Application Rectal QID as needed for hemorrhoid pain. 3 023 Inactive or whatever size tube pharmacy holds. Hemorrhoid ointment RxNorm: 2023677 Apply 1 Application Rectal QID as needed for hemorrhoid pain. 3 023 Inactive or whatever size tube pharmacy holds. triamcinolone acetonide 0.025 % topical cream RxNorm: 5456334 Apply 1 Application Topical BID to psoriatic patches until healed, then BID PRN 3 024 Active triamcinolone acetonide 0.025 % topical cream RxNorm: 1700324 Apply 1 Application Topical BID to psoriatic patches until healed, then BID PRN 3 023 Inactive ketoconazole 2 % shampoo RxNorm: 096117 Topical apply to scalp topically in the evening every sun, and sunday, apply during all showers 3 No Stop Date Active lisinopril 40 mg tablet RxNorm: 878575 Give 1 Tablet(s) Oral QD 3 No Stop Date Active buspirone 10 mg tablet RxNorm: 180011 Give 1 Tablet(s) Oral BID 3 No Stop Date Active tolterodine 2 mg tablet RxNorm: 717278 Give 1 Tablet(s) Oral BID 3 No Stop Date Active nystatin 100,000 unit/gram topical powder RxNorm: 476970 Apply Topical as needed apply under breasts and groin topically PRN for yeast up to 2x daily 3 No Stop Date Active potassium chloride ER 20 mEq tablet,extended release RxNorm: 474133 Give 2 Tablet(s) Oral BID 3 No Stop Date Active insulin glargine (U-100) 100 unit/mL (3 mL) subcutaneous pen RxNorm: 423301 Unit(s) Subcutaneous inject 22 units SQ one time a day, give with breakfast 3 No Stop Date Active fluoxetine 20 mg capsule RxNorm: 779842 Give 1 Capsule(s) Oral QD give with 40 mg cap 3 No Stop Date Active metoprolol succinate ER 50 mg tablet,extended release 24 hr RxNorm: 669387 Give 1/2 Tablet(s) Oral QD 3 023 Inactive fluoxetine 40 mg capsule RxNorm: 837690 Give 1 Capsule(s) Oral QD give with 20 mg cap 3 No Stop Date Active amlodipine 10 mg tablet RxNorm: 377326 Take 1 Tablet(s) Oral QD 3 No Stop Date Active pregabalin 300 mg capsule RxNorm: 859536 Take 1 Capsule(s) Oral BID 3 024 Active pregabalin 300 mg capsule RxNorm: 110293 Take 1 Capsule(s) Oral BID 3 023 Inactive menthol 1.1 mg lozenges RxNorm: 110309 mucous membrane 3 Active Baby Wash topical RxNorm: topical 3 Active wjvzt-bslnu-linwlb x-pramoxine topical RxNorm: 248327 topical 3 Active Medication Administered No Medication Administered data Results Observation Observation Code Item Item Code Result Date Service Location Urine Culture 12313 URINE CULTURE [id number] SEE RESU LTS BELOW 05/02/20 Unknown UA with Microscopic Reflex to Culture [id number] COLOR Yellow 04/30/20 Unknown UA with Microscopic Reflex to Culture [id number] Appearance Slightly Cloudy 04/30/20 Unknown UA with Microscopic Reflex to Culture [id number] GLUCOSE, URINE 70 mg/dL 04/30/20 Unknown UA with Microscopic Reflex to Culture [id number] BILIRUBIN, URINE Negative 04/30/20 Unknown UA with Microscopic Reflex to Culture [id number] Ketones Urine Negative mg/dL 04/30/20 Unknown UA with Microscopic Reflex to Culture [id number] Specific [place] Urine 1.018 04/30/20 Unknown UA with Microscopic Reflex to Culture [id number] BLOOD, URINE Negative 04/30/20 Unknown UA with Microscopic Reflex to Culture [id number] pH Urine 6.5 04/30/20 Unknown UA with Microscopic Reflex to Culture [id number] Protein urine 30 mg/dL 04/30/20 Unknown UA with Microscopic Reflex to Culture [id number] UROBILINOGEN IRIS Normal mg/dL 04/30/20 Unknown UA with Microscopic Reflex to Culture [id number] Nitrites Positive 04/30/20 Unknown UA with Microscopic Reflex to Culture [id number] LEUK ESTERASE Large 04/30/20 Unknown UA with Microscopic Reflex to Culture [id number] Mucus Urine Present /LPF 04/30/20 Unknown UA with Microscopic Reflex to Culture [id number] RBC Urine 5 /HPF 04/30/20 Unknown UA with Microscopic Reflex to Culture [id number] WBC CLUMPS 6690-2 Present /HPF 04/30/20 Unknown UA with Microscopic Reflex to Culture 35888 WBC Urine 34999-5 >182 /HPF 04/30/20 Unknown Reason For Visit No Reason For Visit data Plan of Care Planned Activity Notes Codes Status Date Appointment: Isabel Connor WPtel: [address] [place], [place] [id number] [facility] 04/23/2023 Appointment: Isabel Connor WPtel: [id number] [employer] 03/26/2023 Instructions Comment Date Shaista has resided at [facility] since 02/26/2023, previously lived [facility]. , has 3 children. Worked many jobs, her most favorite job was at [employer].??PMH: History of breast cancer s/p lumpectomy (2018), history of colon neoplasm s/p right hemicolectomy (2012), dementia, history of CVA (July 2019), aphasia, dysphagia, neurogenic bladder s/p supratherapeutic catheter (08/2020), type 2 diabetes, peripheral neuropathy, lumbar spinal stenosis, essential HTN, HLD.??Primary contact: Katarzyna (Daughter)POLST: DNR/DNI/CC (2020)Lab Schedule: As needed for comfort.Specialists: [facility] for suprapubic cath (change monthly) 03/30/2023
--- OUTSIDE RECORDS SUMMARY | 2023-05-31 09:27 | XMS_ITS | CCD ---
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 Name Role Phone Anca Pierce Primary Care Provider Unanata ilable Unavailable Chronic Care Management Unavaila ble Summary Purpose DataExchange Insurance Providers Payer name Policy type / Coverage type Covered republican ID Effective Begin Date Effective End Date Medicare ID Medicare Part B [id number] Unknown Unknown [place] Medicare Part B [id number] Unknown Unk nown Family history Sister Diagnosis Age At Onset Breast cancer Unknown Cancer Unknown Social History Social History Element Codes Description Effec tive Dates Marital status Unknown Significant Othe r Dheeraj 03/23/[address]: 365862803 Has never s moked or chewed tobacco 03/23/[address]: 840984534 No Alcohol Consum ption 03/23/2023 Children Unknown Has Children daughter 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 3 023 Inactive Claritin 10 mg tablet RxNorm: 228274 Give 1 Tablet(s) Oral Q24H every 24 Hours as needed 3 No Stop Date Active Milk Of Magnesia Concentrated 2,400 mg/10 mL oral suspension RxNorm: 231402 Give 30 Milliliter(s) Oral Q24H every 24 Hours as needed for constipation 3 No Stop Date Active aspirin 325 mg tablet RxNorm: 433053 Chew 1 Tablet(s) Oral Q24H every 24 Hours as needed for chest pain PRN 3 No Stop Date Active hydrocortisone 1 % topical cream RxNorm: 966756 Topical apply to affected skin area topically PRN for insect bites, rashes, minor skin irritations up to 4x daily 3 No Stop Date Active guaifenesin 100 mg/5 mL oral liquid RxNorm: 844637 Give 10 Milliliter(s) Oral Q4H every four hours as needed for cough/congestion 3 No Stop Date Active Antacid (calcium carbonate) 200 mg calcium (500 mg) chewable tablet RxNorm: 779281 Chew 2 Tablet(s) Oral Q1H every hour as needed max 15 tabs/24 hours 3 No Stop Date Active bisacodyl 10 mg rectal suppository RxNorm: 921173 Insert 1 Suppository Rectal Q24H every 24 Hours as needed for constipation 3 No Stop Date Active loperamide 2 mg tablet RxNorm: 207524 Give 1 Tablet(s) Oral Q24H every 24 Hours as needed for diarrhea 3 No Stop Date Active acetaminophen 325 mg tablet RxNorm: 130446 Give 1 Tablet(s) Oral Q4H every four hours as needed 3 023 Inactive Hemorrhoid ointment RxNorm: 4256247 Apply 1 Application Rectal QID as needed for hemorrhoid pain. 3 023 Inactive or whatever size tube pharmacy holds. Hemorrhoid ointment RxNorm: 3597504 Apply 1 Application Rectal QID as needed for hemorrhoid pain. 3 023 Inactive or whatever size tube pharmacy holds. triamcinolone acetonide 0.025 % topical cream RxNorm: 2846848 Apply 1 Application Topical BID to psoriatic patches until healed, then BID PRN 3 024 Active triamcinolone acetonide 0.025 % topical cream RxNorm: 2731284 Apply 1 Application Topical BID to psoriatic patches until healed, then BID PRN 3 023 Inactive ketoconazole 2 % shampoo RxNorm: 559491 Topical apply to scalp topically in the evening every sun, and sunday, apply during all showers 3 No Stop Date Active lisinopril 40 mg tablet RxNorm: 039048 Give 1 Tablet(s) Oral QD 3 No Stop Date Active buspirone 10 mg tablet RxNorm: 225002 Give 1 Tablet(s) Oral BID 3 No Stop Date Active tolterodine 2 mg tablet RxNorm: 011140 Give 1 Tablet(s) Oral BID 3 No Stop Date Active nystatin 100,000 unit/gram topical powder RxNorm: 686181 Apply Topical as needed apply under breasts and groin topically PRN for yeast up to 2x daily 3 No Stop Date Active potassium chloride ER 20 mEq tablet,extended release RxNorm: 566628 Give 2 Tablet(s) Oral BID 3 No Stop Date Active insulin glargine (U-100) 100 unit/mL (3 mL) subcutaneous pen RxNorm: 127056 Unit(s) Subcutaneous inject 22 units SQ one time a day, give with breakfast 3 No Stop Date Active fluoxetine 20 mg capsule RxNorm: 774894 Give 1 Capsule(s) Oral QD give with 40 mg cap 3 No Stop Date Active metoprolol succinate ER 50 mg tablet,extended release 24 hr RxNorm: 805573 Give 1/2 Tablet(s) Oral QD 3 023 Inactive fluoxetine 40 mg capsule RxNorm: 320832 Give 1 Capsule(s) Oral QD give with 20 mg cap 3 No Stop Date Active amlodipine 10 mg tablet RxNorm: 896104 Take 1 Tablet(s) Oral QD 3 No Stop Date Active pregabalin 300 mg capsule RxNorm: 097200 Take 1 Capsule(s) Oral BID 3 024 Active pregabalin 300 mg capsule RxNorm: 459968 Take 1 Capsule(s) Oral BID 3 023 Inactive menthol 1.1 mg lozenges RxNorm: 571691 mucous membrane 3 Active Baby Wash topical RxNorm: topical 3 Active hygge-ewuij-dtpapg x-pramoxine topical RxNorm: 347685 topical 3 Active Medication Administered No Medication Administered data Reason For Visit No Reason For Visit data Instructions Comment Date Shaista has resided at [facility] since 02/26/2023, previously lived [facility]. , has 3 children. Worked many jobs, her most favorite job was at [employer].??PMH: History of breast cancer s/p lumpectomy (2018), history of colon neoplasm s/p right hemicolectomy (2012), dementia, history of CVA (July 2019), aphasia, dysphagia, neurogenic bladder s/p supratherapeutic catheter (08/2020), type 2 diabetes, peripheral neuropathy, lumbar spinal stenosis, essential HTN, HLD.??Primary contact: Katarzyna (Daughter)POLST: DNR/DNI/CC (2020)Lab Schedule: As needed for comfort.Specialists: [facility] for suprapubic cath (change monthly) 03/30/2023
--- OUTSIDE RECORDS SUMMARY | 2023-05-31 09:27 | XMS_ITS | CCD ---
Author Name Unknown Organization Unknown Care Team Providers Care Booky Name Role Phone Anca Pierce Primary Care Provider Unanata ilable Unavailable Chronic Care Management Unavaila ble Summary Purpose DataExchange Insurance Providers Payer name Policy type / Coverage type Covered green party ID Effective Begin Date Effective End Date Medicare [place] Medicare Part B [id number] Unknown Unknown BCBS of [place] Medicare Part B [id number] Unknown Unk nown Family history Sister Diagnosis Age At Onset Breast cancer Unknown Cancer Unknown Social History Social History Element Codes Description Effec tive Dates Marital status Unknown Significant Othe r Dheeraj 03/23/[address]: [id number] Has never s moked or chewed tobacco 03/23/[address]: 290323953 No Alcohol Consum ption 03/23/2023 Children Unknown Has Children daughter 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 03/23/2023 Allergies, Adverse Reactions, Alerts Substance Reaction [...] Fill Instructions tramadol 50 mg tablet RxNorm: 342614 Take 1/2 Tablet(s) Oral BID 3 023 Inactive tramadol 50 mg tablet RxNorm: 611603 Take 1/2 Tablet(s) Oral BID 3 023 Inactive acetaminophen 500 mg tablet RxNorm: 104958 Take 2 Tablet(s) Oral TID 3 024 Active tramadol 50 mg tablet RxNorm: 834423 Take 1/2 Tablet(s) Oral QD as needed for pain 3 023 Inactive acetaminophen 500 mg tablet RxNorm: 097445 Take 2 Tablet(s) Oral TID 3 023 Inactive tramadol 50 mg tablet RxNorm: 687621 Take 1/2 Tablet(s) Oral QD as needed for pain 3 023 Inactive erythromycin 5 mg/gram (0.5 %) eye ointment RxNorm: 590038 Apply 1 Ribbon Ophthalmic QID Apply to RIGHT EYE. 3 023 Inactive Claritin 10 mg tablet RxNorm: 827538 Give 1 Tablet(s) Oral Q24H every 24 Hours as needed 3 No Stop Date Active Milk Of Magnesia Concentrated 2,400 mg/10 mL oral suspension RxNorm: 671225 Give 30 Milliliter(s) Oral Q24H every 24 Hours as needed for constipation 3 No Stop Date Active aspirin 325 mg tablet RxNorm: 793041 Chew 1 Tablet(s) Oral Q24H every 24 Hours as needed for chest pain PRN 3 No Stop Date Active hydrocortisone 1 % topical cream RxNorm: 596817 Topical apply to affected skin area topically PRN for insect bites, rashes, minor skin irritations up to 4x daily 3 No Stop Date Active guaifenesin 100 mg/5 mL oral liquid RxNorm: 404566 Give 10 Milliliter(s) Oral Q4H every four hours as needed for cough/congestion 3 No Stop Date Active Antacid (calcium carbonate) 200 mg calcium (500 mg) chewable tablet RxNorm: 693811 Chew 2 Tablet(s) Oral Q1H every hour as needed max 15 tabs/24 hours 3 No Stop Date Active bisacodyl 10 mg rectal suppository RxNorm: 102428 Insert 1 Suppository Rectal Q24H every 24 Hours as needed for constipation 3 No Stop Date Active loperamide 2 mg tablet RxNorm: 330882 Give 1 Tablet(s) Oral Q24H every 24 Hours as needed for diarrhea 3 No Stop Date Active acetaminophen 325 mg tablet RxNorm: 713491 Give 1 Tablet(s) Oral Q4H every four hours as needed 3 023 Inactive Hemorrhoid ointment RxNorm: 9831076 Apply 1 Application Rectal QID as needed for hemorrhoid pain. 3 023 Inactive or whatever size tube pharmacy holds. Hemorrhoid ointment RxNorm: 7738301 Apply 1 Application Rectal QID as needed for hemorrhoid pain. 3 023 Inactive or whatever size tube pharmacy holds. triamcinolone acetonide 0.025 % topical cream RxNorm: 1073594 Apply 1 Application Topical BID to psoriatic patches until healed, then BID PRN 3 024 Active triamcinolone acetonide 0.025 % topical cream RxNorm: 9314245 Apply 1 Application Topical BID to psoriatic patches until healed, then BID PRN 3 023 Inactive ketoconazole 2 % shampoo RxNorm: 599219 Topical apply to scalp topically in the evening every sun, and sunday, apply during all showers 3 No Stop Date Active lisinopril 40 mg tablet RxNorm: 994125 Give 1 Tablet(s) Oral QD 3 No Stop Date Active buspirone 10 mg tablet RxNorm: 656467 Give 1 Tablet(s) Oral BID 3 No Stop Date Active tolterodine 2 mg tablet RxNorm: 678436 Give 1 Tablet(s) Oral BID 3 No Stop Date Active nystatin 100,000 unit/gram topical powder RxNorm: 170318 Apply Topical as needed apply under breasts and groin topically PRN for yeast up to 2x daily 3 No Stop Date Active potassium chloride ER 20 mEq tablet,extended release RxNorm: 367028 Give 2 Tablet(s) Oral BID 3 No Stop Date Active insulin glargine (U-100) 100 unit/mL (3 mL) subcutaneous pen RxNorm: 020740 Unit(s) Subcutaneous inject 22 units SQ one time a day, give with breakfast 3 No Stop Date Active fluoxetine 20 mg capsule RxNorm: 020184 Give 1 Capsule(s) Oral QD give with 40 mg cap 3 No Stop Date Active metoprolol succinate ER 50 mg tablet,extended release 24 hr RxNorm: 499932 Give 1/2 Tablet(s) Oral QD 3 023 Inactive fluoxetine 40 mg capsule RxNorm: 414611 Give 1 Capsule(s) Oral QD give with 20 mg cap 3 No Stop Date Active amlodipine 10 mg tablet RxNorm: 718349 Take 1 Tablet(s) Oral QD 3 No Stop Date Active pregabalin 300 mg capsule RxNorm: 552174 Take 1 Capsule(s) Oral BID 3 024 Active pregabalin 300 mg capsule RxNorm: 550376 Take 1 Capsule(s) Oral BID 3 023 Inactive menthol 1.1 mg lozenges RxNorm: 403265 mucous membrane 3 Active Baby Wash topical RxNorm: topical 3 Active ewjrq-gcceh-jfcxoe x-pramoxine topical RxNorm: 251959 topical 3 Active Medication Administered No Medication Administered data Reason For Visit No Reason For Visit data Instructions Comment Date Shaista has resided at [facility] since 02/26/2023, previously lived [facility]. , has 3 children. Worked many jobs, her most favorite job was at [employer].??PMH: History of breast cancer s/p lumpectomy (2018), history of colon neoplasm s/p right hemicolectomy (2012), dementia, history of CVA (July 2019), aphasia, dysphagia, neurogenic bladder s/p supratherapeutic catheter (08/2020), type 2 diabetes, peripheral neuropathy, lumbar spinal stenosis, essential HTN, HLD.??Primary contact: Katarzyna (Daughter)POLST: DNR/DNI/CC (2020)Lab Schedule: As needed for comfort.Specialists: [facility] for suprapubic cath (change monthly) 03/30/2023
--- OUTSIDE RECORDS SUMMARY | 2023-05-31 09:27 | XMS_ITS | CCD ---
Author Name Unknown Organization Unknown Care Team Providers Care Roll Trucker Name Role Phone Anca Pierce Primary Care Provider Unanata ilable Unavailable Chronic Care Management Unavaila ble Summary Purpose DataExchange Insurance Providers Payer name Policy type / Coverage type Covered democrat ID Effective Begin Date Effective End Date [place] Part B [id number] Unknown Unknown [place] Medicare Part [place] [id number] Unknown Unk nown Family history Sister Diagnosis Age At Onset Breast cancer Unknown Cancer Unknown Social History Social History Element Codes Description Effec tive Dates Marital status Unknown Significant Othe r Dheeraj 03/23/[address]: 497953909 Has never s moked or chewed tobacco 03/23/[address]: 252975643 No Alcohol Consum ption 03/23/2023 Children Unknown [...] Fill Instructions tramadol 50 mg tablet RxNorm: 788682 Take 1/2 Tablet(s) Oral QD as needed for pain 3 023 Inactive acetaminophen 500 mg tablet RxNorm: 133339 Take 2 Tablet(s) Oral TID 3 024 Active acetaminophen 500 mg tablet RxNorm: 585708 Take 2 Tablet(s) Oral TID 3 023 Inactive tramadol 50 mg tablet RxNorm: 390977 Take 1/2 Tablet(s) Oral QD as needed for pain 3 023 Inactive erythromycin 5 mg/gram (0.5 %) eye ointment RxNorm: 845482 Apply 1 Ribbon Ophthalmic QID Apply to RIGHT EYE. 3 023 Inactive Claritin 10 mg tablet RxNorm: 350263 Give 1 Tablet(s) Oral Q24H every 24 Hours as needed 3 No Stop Date Active Milk Of Magnesia Concentrated 2,400 mg/10 mL oral suspension RxNorm: 121265 Give 30 Milliliter(s) Oral Q24H every 24 Hours as needed for constipation 3 No Stop Date Active aspirin 325 mg tablet RxNorm: 529328 Chew 1 Tablet(s) Oral Q24H every 24 Hours as needed for chest pain PRN 3 No Stop Date Active hydrocortisone 1 % topical cream RxNorm: 972342 Topical apply to affected skin area topically PRN for insect bites, rashes, minor skin irritations up to 4x daily 3 No Stop Date Active guaifenesin 100 mg/5 mL oral liquid RxNorm: 801040 Give 10 Milliliter(s) Oral Q4H every four hours as needed for cough/congestion 3 No Stop Date Active Antacid (calcium carbonate) 200 mg calcium (500 mg) chewable tablet RxNorm: 871124 Chew 2 Tablet(s) Oral Q1H every hour as needed max 15 tabs/24 hours 3 No Stop Date Active bisacodyl 10 mg rectal suppository RxNorm: 203822 Insert 1 Suppository Rectal Q24H every 24 Hours as needed for constipation 3 No Stop Date Active loperamide 2 mg tablet RxNorm: 443557 Give 1 Tablet(s) Oral Q24H every 24 Hours as needed for diarrhea 3 No Stop Date Active acetaminophen 325 mg tablet RxNorm: 072049 Give 1 Tablet(s) Oral Q4H every four hours as needed 3 023 Inactive Hemorrhoid ointment RxNorm: 4781813 Apply 1 Application Rectal QID as needed for hemorrhoid pain. 3 023 Inactive or whatever size tube pharmacy holds. Hemorrhoid ointment RxNorm: 5061299 Apply 1 Application Rectal QID as needed for hemorrhoid pain. 3 023 Inactive or whatever size tube pharmacy holds. triamcinolone acetonide 0.025 % topical cream RxNorm: 9963154 Apply 1 Application Topical BID to psoriatic patches until healed, then BID PRN 3 024 Active triamcinolone acetonide 0.025 % topical cream RxNorm: 2118388 Apply 1 Application Topical BID to psoriatic patches until healed, then BID PRN 3 023 Inactive ketoconazole 2 % shampoo RxNorm: 216831 Topical apply to scalp topically in the evening every sun, and sunday, apply during all showers 3 No Stop Date Active lisinopril 40 mg tablet RxNorm: 528989 Give 1 Tablet(s) Oral QD 3 No Stop Date Active buspirone 10 mg tablet RxNorm: 364779 Give 1 Tablet(s) Oral BID 3 No Stop Date Active tolterodine 2 mg tablet RxNorm: 162064 Give 1 Tablet(s) Oral BID 3 No Stop Date Active nystatin 100,000 unit/gram topical powder RxNorm: 771231 Apply Topical as needed apply under breasts and groin topically PRN for yeast up to 2x daily 3 No Stop Date Active potassium chloride ER 20 mEq tablet,extended release RxNorm: 424244 Give 2 Tablet(s) Oral BID 3 No Stop Date Active insulin glargine (U-100) 100 unit/mL (3 mL) subcutaneous pen RxNorm: 874150 Unit(s) Subcutaneous inject 22 units SQ one time a day, give with breakfast 3 No Stop Date Active fluoxetine 20 mg capsule RxNorm: 122160 Give 1 Capsule(s) Oral QD give with 40 mg cap 3 No Stop Date Active metoprolol succinate ER 50 mg tablet,extended release 24 hr RxNorm: 671461 Give 1/2 Tablet(s) Oral QD 3 023 Inactive fluoxetine 40 mg capsule RxNorm: 633052 Give 1 Capsule(s) Oral QD give with 20 mg cap 3 No Stop Date Active amlodipine 10 mg tablet RxNorm: 555244 Take 1 Tablet(s) Oral QD 3 No Stop Date Active pregabalin 300 mg capsule RxNorm: 352676 Take 1 Capsule(s) Oral BID 3 024 Active pregabalin 300 mg capsule RxNorm: 482633 Take 1 Capsule(s) Oral BID 3 023 Inactive menthol 1.1 mg lozenges RxNorm: 277667 mucous membrane 3 Active Baby Wash topical RxNorm: topical 3 Active mdlxb-vxxvu-qwxjwi x-pramoxine topical RxNorm: 361222 topical 3 Active Medication Administered No Medication Administered data Reason For Visit No Reason For Visit data Instructions Comment Date Shaista has resided at [facility] since 02/26/2023, previously lived [facility] [place]. , has 3 children. Worked many jobs, her most favorite job was at [employer].??PMH: History of breast cancer s/p lumpectomy (2018), history of colon neoplasm s/p right hemicolectomy (2012), dementia, history of CVA (July 2019), aphasia, dysphagia, neurogenic bladder s/p supratherapeutic catheter (08/2020), type 2 diabetes, peripheral neuropathy, lumbar spinal stenosis, essential HTN, HLD.??Primary contact: Katarzyna (Daughter)POLST: DNR/DNI/CC (2020)Lab Schedule: As needed for comfort.Specialists: [facility] for suprapubic cath (change monthly) 03/30/2023
--- OUTSIDE RECORDS SUMMARY | 2023-05-31 09:28 | XMS_ITS | CCD ---
Author Name Anca Pierce Address [address] [place] [address] Phone Organization [facility] Phone Care Team Providers Care Bulb Assembler Name Role Phone Anca Pierce Primary Care Provider Unava ilable Unavailable Chronic Care Management Unavaila ble Summary Purpose DataExchange Insurance Providers Payer name Policy type / Coverage type Covered green party ID Effective Begin Date Effective End Date Medicare [place] Medicare Part B [id number] Unknown Unknown [place] of [place] Medicare Part B [id number] Unknown Unk nown Family history Sister Diagnosis Age At Onset Breast cancer Unknown Cancer Unknown Social History Social History Element Codes Description Effec tive Dates Marital status Unknown Significant Othe r Dheearj 03/23/[address]: 746342949 Has never s moked or chewed tobacco 03/23/[address]: 337379947 No Alcohol Consum ption 03/23/2023 Children Unknown Has Children daughter 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 [facility] 03/23/2023 Allergies, Adverse Reactions, Alerts Substance Reaction Codes Entered Date Inactivated Date Status fenofibrate RxNorm: 8703 03/26/2023 No Inactive Da te Active Statins Unknown 03/26/2023 No Inactive Date Ac tive Problems Condition Codes Effective Dates Condition St atus 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 ICD-9: 707.8 05/28/2023 Active Dementia ICD-10: F03.90 ICD-9: 294.20 05/28/2023 Active Spinal stenosis ICD-10: M48.00 ICD-9: 724.00 05/28/2023 Active Essential (primary) hypertension ICD-10: I10 ICD-9: [...] colectomy ICD-10: Z90.49 ICD-9: V45.89 03/26/2023 Active Suprapubic catheter ICD-10: Z93.59 ICD-9: V44.59 03/26/2023 Active Unsteady gait ICD-10: R26.81 ICD-9: 781.2 03/26/2023 Active Contact with and (suspected) exposure to covid-19 ICD-10: Z20.822 ICD-9: V01.79 06/15/2021 Active Medications Medication Codes Instructions Start Date Stop Date Status Fill Instructions metoprolol succinate ER 25 mg tablet,extended release 24 hr RxNorm: 099432 Take 1 Tablet(s) Oral QD 3 No Stop Date Active tramadol 50 mg tablet RxNorm: 268615 Take 1/2 Tablet(s) Oral TID 3 023 Active tramadol 50 mg tablet RxNorm: 723198 Take 1/2 Tablet(s) Oral BID 3 023 Inactive tramadol 50 mg tablet RxNorm: 941427 Take 1/2 Tablet(s) Oral BID 3 023 Inactive acetaminophen 500 mg tablet RxNorm: 058383 Take 2 Tablet(s) Oral TID 3 024 Active tramadol 50 mg tablet RxNorm: 463922 Take 1/2 Tablet(s) Oral QD as needed for pain 3 023 Inactive acetaminophen 500 mg tablet RxNorm: 961249 Take 2 Tablet(s) Oral TID 3 023 Inactive tramadol 50 mg tablet RxNorm: 375007 Take 1/2 Tablet(s) Oral QD as needed for pain 3 023 Inactive erythromycin 5 mg/gram (0.5 %) eye ointment RxNorm: 008273 Apply 1 Ribbon Ophthalmic QID Apply to RIGHT EYE. 3 023 Inactive Claritin 10 mg tablet RxNorm: 308239 Give 1 Tablet(s) Oral Q24H every 24 Hours as needed 3 No Stop Date Active Milk Of Magnesia Concentrated 2,400 mg/10 mL oral suspension RxNorm: 535613 Give 30 Milliliter(s) Oral Q24H every 24 Hours as needed for constipation 3 No Stop Date Active aspirin 325 mg tablet RxNorm: 181636 Chew 1 Tablet(s) Oral Q24H every 24 Hours as needed for chest pain PRN 3 No Stop Date Active hydrocortisone 1 % topical cream RxNorm: 821941 Topical apply to affected skin area topically PRN for insect bites, rashes, minor skin irritations up to 4x daily 3 No Stop Date Active guaifenesin 100 mg/5 mL oral liquid RxNorm: 645625 Give 10 Milliliter(s) Oral Q4H every four hours as needed for cough/congestion 3 No Stop Date Active Antacid (calcium carbonate) 200 mg calcium (500 mg) chewable tablet RxNorm: 196956 Chew 2 Tablet(s) Oral Q1H every hour as needed max 15 tabs/24 hours 3 No Stop Date Active bisacodyl 10 mg rectal suppository RxNorm: 190815 Insert 1 Suppository Rectal Q24H every 24 Hours as needed for constipation 3 No Stop Date Active loperamide 2 mg tablet RxNorm: 005469 Give 1 Tablet(s) Oral Q24H every 24 Hours as needed for diarrhea 3 No Stop Date Active acetaminophen 325 mg tablet RxNorm: 178672 Give 1 Tablet(s) Oral Q4H every four hours as needed 3 023 Inactive Hemorrhoid ointment RxNorm: 3323357 Apply 1 Application Rectal QID as needed for hemorrhoid pain. 3 023 Inactive or whatever size tube pharmacy holds. Hemorrhoid ointment RxNorm: 3997352 Apply 1 Application Rectal QID as needed for hemorrhoid pain. 3 023 Inactive or whatever size tube pharmacy holds. triamcinolone acetonide 0.025 % topical cream RxNorm: 0057898 Apply 1 Application Topical BID to psoriatic patches until healed, then BID PRN 3 024 Active triamcinolone acetonide 0.025 % topical cream RxNorm: 5818639 Apply 1 Application Topical BID to psoriatic patches until healed, then BID PRN 3 023 Inactive ketoconazole 2 % shampoo RxNorm: 218129 Topical apply to scalp topically in the evening every sun, and sunday, apply during all showers 3 No Stop Date Active lisinopril 40 mg tablet RxNorm: 069880 Give 1 Tablet(s) Oral QD 3 No Stop Date Active buspirone 10 mg tablet RxNorm: 335666 Give 1 Tablet(s) Oral BID 3 No Stop Date Active tolterodine 2 mg tablet RxNorm: 540986 Give 1 Tablet(s) Oral BID 3 No Stop Date Active nystatin 100,000 unit/gram topical powder RxNorm: 495305 Apply Topical as needed apply under breasts and groin topically PRN for yeast up to 2x daily 3 No Stop Date Active potassium chloride ER 20 mEq tablet,extended release RxNorm: 412037 Give 2 Tablet(s) Oral BID 3 No Stop Date Active insulin glargine (U-100) 100 unit/mL (3 mL) subcutaneous pen RxNorm: 819123 Unit(s) Subcutaneous inject 22 units SQ one time a day, give with breakfast 3 No Stop Date Active fluoxetine 20 mg capsule RxNorm: 340490 Give 1 Capsule(s) Oral QD give with 40 mg cap 3 No Stop Date Active fluoxetine 40 mg capsule RxNorm: 501377 Give 1 Capsule(s) Oral QD give with 20 mg cap 3 No Stop Date Active amlodipine 10 mg tablet RxNorm: 655237 Take 1 Tablet(s) Oral QD 3 No Stop Date Active metoprolol succinate ER 50 mg tablet,extended release 24 hr RxNorm: 365708 Give 1/2 Tablet(s) Oral QD 3 023 Inactive pregabalin 300 mg capsule RxNorm: 563014 Take 1 Capsule(s) Oral BID 3 024 Active pregabalin 300 mg capsule RxNorm: 577479 Take 1 Capsule(s) Oral BID 3 023 Inactive menthol 1.1 mg lozenges RxNorm: 231707 mucous membrane 3 Active Hemorrhoidal Cream rectal RxNorm: 1893751 rectal 3 Active Baby Wash topical RxNorm: topical 3 Active thcse-hfqzk-xlxoay x-pramoxine topical RxNorm: 484144 topical 3 Active Medication Administered No Medication Administered data Procedures Procedure Codes Date SYS BP > OR = 140 CPT-4: G8753 05/28/2023 ZABALA BP LESS 90 CPT-4: G8754 05/28/2023 Vital Signs Date Vital 05/28/2023 Blood Pressure 1: 143/71 Code: 8480-6 Heart Rate 1: 68 bpm Code: 8867-4 Respiratory Rate: 17 bpm SpO2: 97% Temperature: 36.4 (C) / 97.5 (F) Weight: 186 lbs 8 oz Code: 3141-9 Reason For Visit No Reason For Visit data Encounters Encounter Performer Location Location Address Codes Date () Home or Residence Visit Est Pt - Moderate Level, 40 mins Diagnosis: Spinal stenosis[ICD10: M48.00] Diagnosis: Dementia[ICD10: F03.90] Diagnosis: Chronic ulcer of buttock[ICD10: L98.419] Anca Connor [facility] [address] [place] [address] CPT-4: 76778 05/28/2023 Plan of Care Planned Activity Notes Codes Status Date Patient Education: Patient Medication Summary Completed 05/28/2023 Patient Education: Influenza Complet ed 05/28/2023 Appointment: Isabel Connor WPtel: [id number] [place] 04/23/2023 Appointment: Isabel Connor WPtel: [phone] [employer] 03/26/2023 Instructions Comment Date Shaista has resided at [facility] since 02/26/2023, previously lived [facility]. , has 3 children. Worked many jobs, her most favorite job was at [employer].??PMH: History of breast cancer s/p lumpectomy (2018), history of colon neoplasm s/p right hemicolectomy (2012), dementia, history of CVA (July 2019), aphasia, dysphagia, neurogenic bladder s/p supratherapeutic catheter (08/2020), type 2 diabetes, peripheral neuropathy, lumbar spinal stenosis, essential HTN, HLD.??Primary contact: Katarzyna (Daughter)POLST: DNR/DNI/CC (2020)Lab Schedule: As needed for comfort.Specialists: [facility] for suprapubic cath (change monthly) 03/30/2023 Dementia Has been having hallucinations likely secondary to tramadol introduction. Pleasant on exam today and nursing does not report further concern. Spinal stenosis Has been experiencing increased back pain this month. Started patient on tramadol and have slowly titrated up to 25mg TID. Nursing reports hallucinations. BMP obtained to evaluate sodium level, sodium level is stable (138). Pt reports increased pain at night time. Nursing staff report patient is an unreliable historian. Patient has been rating pain 2/10 since initiation of tramadol. 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 [facility] to treat wound given complexity and difficult area to treat. Patient is home bound given debility, gait instability and cognitive impairment. Patient uses DME and needs the assistance of another to leave home.??. 05/28/2023
--- OUTSIDE RECORDS SUMMARY | 2023-05-31 09:28 | XMS_ITS | CCD ---
Author Name Unknown Organization Unknown Care Team Providers Care Shot Hole Shooter Name Role Phone Anca Pierce Primary Care Provider Unanata ilable Unavailable Chronic Care Management Unavaila ble Summary Purpose DataExchange Insurance Providers Payer name Policy type / Coverage type Covered constitution party ID Effective Begin Date Effective End Date Medicare [place] Medicare Part B [id number] Unknown Unknown [place] of [place] Medicare Part B [id number] Unknown Unk nown Family history Sister Diagnosis Age At Onset Breast cancer Unknown Cancer Unknown Social History Social History Element Codes Description Effec tive Dates Marital status Unknown Significant Othe r Dheeraj 03/23/[address]: 705606707 Has never s moked or chewed tobacco 03/23/[address]: 828146564 No Alcohol Consum ption 03/23/2023 Children Unknown Has Children daughter 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 [facility] 03/23/2023 Allergies, Adverse Reactions, Alerts Substance [...] Fill Instructions tramadol 50 mg tablet RxNorm: 992114 Take 1/2 Tablet(s) Oral TID 3 023 Active tramadol 50 mg tablet RxNorm: 902353 Take 1/2 Tablet(s) Oral BID 3 023 Inactive tramadol 50 mg tablet RxNorm: 636899 Take 1/2 Tablet(s) Oral BID 3 023 Inactive acetaminophen 500 mg tablet RxNorm: 139879 Take 2 Tablet(s) Oral TID 3 024 Active tramadol 50 mg tablet RxNorm: 202925 Take 1/2 Tablet(s) Oral QD as needed for pain 3 023 Inactive acetaminophen 500 mg tablet RxNorm: 424019 Take 2 Tablet(s) Oral TID 3 023 Inactive tramadol 50 mg tablet RxNorm: 051600 Take 1/2 Tablet(s) Oral QD as needed for pain 3 023 Inactive erythromycin 5 mg/gram (0.5 %) eye ointment RxNorm: 612155 Apply 1 Ribbon Ophthalmic QID Apply to RIGHT EYE. 3 023 Inactive Claritin 10 mg tablet RxNorm: 156124 Give 1 Tablet(s) Oral Q24H every 24 Hours as needed 3 No Stop Date Active Milk Of Magnesia Concentrated 2,400 mg/10 mL oral suspension RxNorm: 777321 Give 30 Milliliter(s) Oral Q24H every 24 Hours as needed for constipation 3 No Stop Date Active aspirin 325 mg tablet RxNorm: 667740 Chew 1 Tablet(s) Oral Q24H every 24 Hours as needed for chest pain PRN 3 No Stop Date Active hydrocortisone 1 % topical cream RxNorm: 429042 Topical apply to affected skin area topically PRN for insect bites, rashes, minor skin irritations up to 4x daily 3 No Stop Date Active guaifenesin 100 mg/5 mL oral liquid RxNorm: 875710 Give 10 Milliliter(s) Oral Q4H every four hours as needed for cough/congestion 3 No Stop Date Active Antacid (calcium carbonate) 200 mg calcium (500 mg) chewable tablet RxNorm: 698038 Chew 2 Tablet(s) Oral Q1H every hour as needed max 15 tabs/24 hours 3 No Stop Date Active bisacodyl 10 mg rectal suppository RxNorm: 254702 Insert 1 Suppository Rectal Q24H every 24 Hours as needed for constipation 3 No Stop Date Active loperamide 2 mg tablet RxNorm: 575493 Give 1 Tablet(s) Oral Q24H every 24 Hours as needed for diarrhea 3 No Stop Date Active acetaminophen 325 mg tablet RxNorm: 266772 Give 1 Tablet(s) Oral Q4H every four hours as needed 3 023 Inactive Hemorrhoid ointment RxNorm: 8006305 Apply 1 Application Rectal QID as needed for hemorrhoid pain. 3 023 Inactive or whatever size tube pharmacy holds. Hemorrhoid ointment RxNorm: 4885758 Apply 1 Application Rectal QID as needed for hemorrhoid pain. 3 023 Inactive or whatever size tube pharmacy holds. triamcinolone acetonide 0.025 % topical cream RxNorm: 4612436 Apply 1 Application Topical BID to psoriatic patches until healed, then BID PRN 3 024 Active triamcinolone acetonide 0.025 % topical cream RxNorm: 6925603 Apply 1 Application Topical BID to psoriatic patches until healed, then BID PRN 3 023 Inactive ketoconazole 2 % shampoo RxNorm: 819431 Topical apply to scalp topically in the evening every sun, and sunday, apply during all showers 3 No Stop Date Active lisinopril 40 mg tablet RxNorm: 552976 Give 1 Tablet(s) Oral QD 3 No Stop Date Active buspirone 10 mg tablet RxNorm: 721309 Give 1 Tablet(s) Oral BID 3 No Stop Date Active tolterodine 2 mg tablet RxNorm: 482916 Give 1 Tablet(s) Oral BID 3 No Stop Date Active nystatin 100,000 unit/gram topical powder RxNorm: 548385 Apply Topical as needed apply under breasts and groin topically PRN for yeast up to 2x daily 3 No Stop Date Active potassium chloride ER 20 mEq tablet,extended release RxNorm: 638384 Give 2 Tablet(s) Oral BID 3 No Stop Date Active insulin glargine (U-100) 100 unit/mL (3 mL) subcutaneous pen RxNorm: 983052 Unit(s) Subcutaneous inject 22 units SQ one time a day, give with breakfast 3 No Stop Date Active fluoxetine 20 mg capsule RxNorm: 042158 Give 1 Capsule(s) Oral QD give with 40 mg cap 3 No Stop Date Active metoprolol succinate ER 50 mg tablet,extended release 24 hr RxNorm: 562957 Give 1/2 Tablet(s) Oral QD 3 023 Inactive fluoxetine 40 mg capsule RxNorm: 437773 Give 1 Capsule(s) Oral QD give with 20 mg cap 3 No Stop Date Active amlodipine 10 mg tablet RxNorm: 344213 Take 1 Tablet(s) Oral QD 3 No Stop Date Active pregabalin 300 mg capsule RxNorm: 843399 Take 1 Capsule(s) Oral BID 3 024 Active pregabalin 300 mg capsule RxNorm: 510325 Take 1 Capsule(s) Oral BID 3 023 Inactive menthol 1.1 mg lozenges RxNorm: 564746 mucous membrane 3 Active Baby Wash topical RxNorm: topical 3 Active jtoah-nndho-bdtnzi x-pramoxine topical RxNorm: 154845 topical 3 Active Medication Administered No Medication Administered data Reason For Visit No Reason For Visit data Instructions Comment Date Shaista has resided at [facility] since 02/26/2023, previously lived [facility]. , has 3 children. Worked many jobs, her most favorite job was at [employer].??PMH: History of breast cancer s/p lumpectomy (2018), history of colon neoplasm s/p right hemicolectomy (2012), dementia, history of CVA (July 2019), aphasia, dysphagia, neurogenic bladder s/p supratherapeutic catheter (08/2020), type 2 diabetes, peripheral neuropathy, lumbar spinal stenosis, essential HTN, HLD.??Primary contact: Katarzyna (Daughter)POLST: DNR/DNI/CC (2020)Lab Schedule: As needed for comfort.Specialists: [facility] for suprapubic cath (change monthly) 03/30/2023
--- OUTSIDE RECORDS SUMMARY | 2023-05-31 09:28 | XMS_ITS | CCD ---
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 Name Role Phone Anca Pierce Primary Care Provider Unava ilable Unavailable Chronic Care Management Unavaila ble Summary Purpose DataExchange Insurance Providers Payer name Policy type / Coverage type Covered alliance party ID Effective Begin Date Effective End Date Medicare [place] Medicare Part B [id number] Unknown Unknown BCBS of [place] Medicare Part B [id number] Unknown Unk nown Family history Sister Diagnosis Age At Onset Breast cancer Unknown Cancer Unknown Social History Social History Element Codes Description Effec tive Dates Marital status Unknown Significant Othe r Dheeraj 03/23/[address]: 772040581 Has never s moked or chewed tobacco 03/23/[address]: 995365334 No Alcohol Consum ption 03/23/2023 Children Unknown [...] Fill Instructions tramadol 50 mg tablet RxNorm: 194109 Take 1/2 Tablet(s) Oral TID 3 023 Active tramadol 50 mg tablet RxNorm: 573089 Take 1/2 Tablet(s) Oral BID 3 023 Inactive tramadol 50 mg tablet RxNorm: 748811 Take 1/2 Tablet(s) Oral BID 3 023 Inactive acetaminophen 500 mg tablet RxNorm: 402237 Take 2 Tablet(s) Oral TID 3 024 Active tramadol 50 mg tablet RxNorm: 927742 Take 1/2 Tablet(s) Oral QD as needed for pain 3 023 Inactive acetaminophen 500 mg tablet RxNorm: 495903 Take 2 Tablet(s) Oral TID 3 023 Inactive tramadol 50 mg tablet RxNorm: 433851 Take 1/2 Tablet(s) Oral QD as needed for pain 3 023 Inactive erythromycin 5 mg/gram (0.5 %) eye ointment RxNorm: 348943 Apply 1 Ribbon Ophthalmic QID Apply to RIGHT EYE. 3 023 Inactive Claritin 10 mg tablet RxNorm: 942281 Give 1 Tablet(s) Oral Q24H every 24 Hours as needed 3 No Stop Date Active Milk Of Magnesia Concentrated 2,400 mg/10 mL oral suspension RxNorm: 487226 Give 30 Milliliter(s) Oral Q24H every 24 Hours as needed for constipation 3 No Stop Date Active aspirin 325 mg tablet RxNorm: 656721 Chew 1 Tablet(s) Oral Q24H every 24 Hours as needed for chest pain PRN 3 No Stop Date Active hydrocortisone 1 % topical cream RxNorm: 816155 Topical apply to affected skin area topically PRN for insect bites, rashes, minor skin irritations up to 4x daily 3 No Stop Date Active guaifenesin 100 mg/5 mL oral liquid RxNorm: 226002 Give 10 Milliliter(s) Oral Q4H every four hours as needed for cough/congestion 3 No Stop Date Active Antacid (calcium carbonate) 200 mg calcium (500 mg) chewable tablet RxNorm: 138980 Chew 2 Tablet(s) Oral Q1H every hour as needed max 15 tabs/24 hours 3 No Stop Date Active bisacodyl 10 mg rectal suppository RxNorm: 981258 Insert 1 Suppository Rectal Q24H every 24 Hours as needed for constipation 3 No Stop Date Active loperamide 2 mg tablet RxNorm: 759890 Give 1 Tablet(s) Oral Q24H every 24 Hours as needed for diarrhea 3 No Stop Date Active acetaminophen 325 mg tablet RxNorm: 563612 Give 1 Tablet(s) Oral Q4H every four hours as needed 3 023 Inactive Hemorrhoid ointment RxNorm: 3720667 Apply 1 Application Rectal QID as needed for hemorrhoid pain. 3 023 Inactive or whatever size tube pharmacy holds. Hemorrhoid ointment RxNorm: 3189815 Apply 1 Application Rectal QID as needed for hemorrhoid pain. 3 023 Inactive or whatever size tube pharmacy holds. triamcinolone acetonide 0.025 % topical cream RxNorm: 9538102 Apply 1 Application Topical BID to psoriatic patches until healed, then BID PRN 3 024 Active triamcinolone acetonide 0.025 % topical cream RxNorm: 8779747 Apply 1 Application Topical BID to psoriatic patches until healed, then BID PRN 3 023 Inactive ketoconazole 2 % shampoo RxNorm: 675792 Topical apply to scalp topically in the evening every sun, and sunday, apply during all showers 3 No Stop Date Active lisinopril 40 mg tablet RxNorm: 962609 Give 1 Tablet(s) Oral QD 3 No Stop Date Active buspirone 10 mg tablet RxNorm: 679778 Give 1 Tablet(s) Oral BID 3 No Stop Date Active tolterodine 2 mg tablet RxNorm: 949611 Give 1 Tablet(s) Oral BID 3 No Stop Date Active nystatin 100,000 unit/gram topical powder RxNorm: 130149 Apply Topical as needed apply under breasts and groin topically PRN for yeast up to 2x daily 3 No Stop Date Active potassium chloride ER 20 mEq tablet,extended release RxNorm: 993178 Give 2 Tablet(s) Oral BID 3 No Stop Date Active insulin glargine (U-100) 100 unit/mL (3 mL) subcutaneous pen RxNorm: 351691 Unit(s) Subcutaneous inject 22 units SQ one time a day, give with breakfast 3 No Stop Date Active fluoxetine 20 mg capsule RxNorm: 021295 Give 1 Capsule(s) Oral QD give with 40 mg cap 3 No Stop Date Active metoprolol succinate ER 50 mg tablet,extended release 24 hr RxNorm: 118618 Give 1/2 Tablet(s) Oral QD 3 023 Inactive fluoxetine 40 mg capsule RxNorm: 049697 Give 1 Capsule(s) Oral QD give with 20 mg cap 3 No Stop Date Active amlodipine 10 mg tablet RxNorm: 722246 Take 1 Tablet(s) Oral QD 3 No Stop Date Active pregabalin 300 mg capsule RxNorm: 699998 Take 1 Capsule(s) Oral BID 3 024 Active pregabalin 300 mg capsule RxNorm: 868896 Take 1 Capsule(s) Oral BID 3 023 Inactive menthol 1.1 mg lozenges RxNorm: 308334 mucous membrane 3 Active Baby Wash topical RxNorm: topical 3 Active omxcw-vyqkc-hebcln x-pramoxine topical RxNorm: 204260 topical 3 Active Medication Administered No Medication Administered data Results Observation Observation Code Item Item Code Result Date Service Location Basic Metabolic Panel [facility]15 Sodium 2951-2 138 mmol/L 05/16/20 23 Unknown Basic Metabolic Panel [facility] POTASSIUM ([facility]) 2823-3 4.3 mmol/L 05/16/20 23 Unknown Basic Metabolic Panel LAB15 UREA NITROGEN ([facility]) 13.1 mg/dL 05/16/20 23 Unknown Basic Metabolic Panel [facility]15 CHLORIDE ([facility]) 104 mmol/L 05/16/20 23 Unknown Basic Metabolic Panel LAB15 CO2 ([facility]) 21 mmol/L 05/16/20 23 Unknown Basic Metabolic Panel [facility]15 ANION GAP ([facility]) 13 mmol/L 05/16/20 23 Unknown Basic Metabolic Panel [facility]15 Creatinine 2160-0 0.62 mg/dL 05/16/20 23 Unknown Basic Metabolic Panel [facility] GLUCOSE ([facility]) 131 mg/dL 05/16/20 Unknown Basic Metabolic Panel LAB15 Calcium 42764-1 8.9 mg/dL 05/16/20 Unknown Basic Metabolic Panel LAB15 GFR, ESTIMATE 77975-6 87 mL/min/1.7 3m2 05/16/20 Unknown Reason For Visit No Reason For Visit data Plan of Care Planned Activity Notes Codes Status Date Appointment: Isabel Connor WPtel: [address] [id number] US AWV 04/23/2023 Appointment: Isabel Connor WPtel: [address] [id number] US HAIR SPINNER 03/26/2023 Instructions Comment Date Shaista has resided at [facility] since 02/26/2023, previously lived [facility]. , has 3 children. Worked many jobs, her most favorite job was at [employer].??PMH: History of breast cancer s/p lumpectomy (2018), [...]
--- OUTSIDE RECORDS SUMMARY | 2023-05-31 09:29 | XMS_ITS | CCD ---
Author Name Anca Pierce Address [address] [place] [address] Phone Organization [facility] Phone Care Team Providers Care Financial Aid Advisor Name Role Phone Anca Pierce Primary Care Provider Unava ilable Unavailable Chronic Care Management Unavaila ble Summary Purpose DataExchange Insurance Providers Payer name Policy type / Coverage type Covered libertarian ID Effective Begin Date Effective End Date Medicare [place] Medicare Part B [id number] Unknown Unknown BCBS of [place] Medicare Part B [id number] Unknown Unk nown Family history Sister Diagnosis Age At Onset Breast cancer Unknown Cancer Unknown Social History Social History Element Codes Description Effec tive Dates Marital status Unknown Significant Othe r Dheeraj 03/23/[address]: 721211488 Has never s moked or chewed tobacco 03/23/[address]: 512823005 No Alcohol Consum ption 03/23/2023 Children Unknown Has Children daughter 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 [facility] 03/23/2023 Allergies, Adverse Reactions, Alerts Substance [...] 25 mg tablet,extended release 24 hr RxNorm: 532604 Take 1 Tablet(s) Oral QD 3 No Stop Date Active tramadol 50 mg tablet RxNorm: 994986 Take 1/2 Tablet(s) Oral TID 3 023 Active tramadol 50 mg tablet RxNorm: 450234 Take 1/2 Tablet(s) Oral BID 3 023 Inactive tramadol 50 mg tablet RxNorm: 601187 Take 1/2 Tablet(s) Oral BID 3 023 Inactive acetaminophen 500 mg tablet RxNorm: 415664 Take 2 Tablet(s) Oral TID 3 024 Active tramadol 50 mg tablet RxNorm: 470363 Take 1/2 Tablet(s) Oral QD as needed for pain 3 023 Inactive acetaminophen 500 mg tablet RxNorm: 324487 Take 2 Tablet(s) Oral TID 3 023 Inactive tramadol 50 mg tablet RxNorm: 062907 Take 1/2 Tablet(s) Oral QD as needed for pain 3 023 Inactive erythromycin 5 mg/gram (0.5 %) eye ointment RxNorm: 863551 Apply 1 Ribbon Ophthalmic QID Apply to RIGHT EYE. 3 023 Inactive Claritin 10 mg tablet RxNorm: 123443 Give 1 Tablet(s) Oral Q24H every 24 Hours as needed 3 No Stop Date Active Milk Of Magnesia Concentrated 2,400 mg/10 mL oral suspension RxNorm: 640347 Give 30 Milliliter(s) Oral Q24H every 24 Hours as needed for constipation 3 No Stop Date Active aspirin 325 mg tablet RxNorm: 002840 Chew 1 Tablet(s) Oral Q24H every 24 Hours as needed for chest pain PRN 3 No Stop Date Active hydrocortisone 1 % topical cream RxNorm: 194071 Topical apply to affected skin area topically PRN for insect bites, rashes, minor skin irritations up to 4x daily 3 No Stop Date Active guaifenesin 100 mg/5 mL oral liquid RxNorm: 467491 Give 10 Milliliter(s) Oral Q4H every four hours as needed for cough/congestion 3 No Stop Date Active Antacid (calcium carbonate) 200 mg calcium (500 mg) chewable tablet RxNorm: 037993 Chew 2 Tablet(s) Oral Q1H every hour as needed max 15 tabs/24 hours 3 No Stop Date Active bisacodyl 10 mg rectal suppository RxNorm: 698608 Insert 1 Suppository Rectal Q24H every 24 Hours as needed for constipation 3 No Stop Date Active loperamide 2 mg tablet RxNorm: 988297 Give 1 Tablet(s) Oral Q24H every 24 Hours as needed for diarrhea 3 No Stop Date Active acetaminophen 325 mg tablet RxNorm: 902747 Give 1 Tablet(s) Oral Q4H every four hours as needed 3 023 Inactive Hemorrhoid ointment RxNorm: 9954953 Apply 1 Application Rectal QID as needed for hemorrhoid pain. 3 023 Inactive or whatever size tube pharmacy holds. Hemorrhoid ointment RxNorm: 5700577 Apply 1 Application Rectal QID as needed for hemorrhoid pain. 3 023 Inactive or whatever size tube pharmacy holds. triamcinolone acetonide 0.025 % topical cream RxNorm: 8169671 Apply 1 Application Topical BID to psoriatic patches until healed, then BID PRN 3 024 Active triamcinolone acetonide 0.025 % topical cream RxNorm: 2694153 Apply 1 Application Topical BID to psoriatic patches until healed, then BID PRN 3 023 Inactive ketoconazole 2 % shampoo RxNorm: 429866 Topical apply to scalp topically in the evening every sun, and sunday, apply during all showers 3 No Stop Date Active lisinopril 40 mg tablet RxNorm: 668981 Give 1 Tablet(s) Oral QD 3 No Stop Date Active buspirone 10 mg tablet RxNorm: 683543 Give 1 Tablet(s) Oral BID 3 No Stop Date Active tolterodine 2 mg tablet RxNorm: 177910 Give 1 Tablet(s) Oral BID 3 No Stop Date Active nystatin 100,000 unit/gram topical powder RxNorm: 840911 Apply Topical as needed apply under breasts and groin topically PRN for yeast up to 2x daily 3 No Stop Date Active potassium chloride ER 20 mEq tablet,extended release RxNorm: 189174 Give 2 Tablet(s) Oral BID 3 No Stop Date Active insulin glargine (U-100) 100 unit/mL (3 mL) subcutaneous pen RxNorm: 771739 Unit(s) Subcutaneous inject 22 units SQ one time a day, give with breakfast 3 No Stop Date Active fluoxetine 20 mg capsule RxNorm: 622783 Give 1 Capsule(s) Oral QD give with 40 mg cap 3 No Stop Date Active fluoxetine 40 mg capsule RxNorm: 674261 Give 1 Capsule(s) Oral QD give with 20 mg cap 3 No Stop Date Active amlodipine 10 mg tablet RxNorm: 634316 Take 1 Tablet(s) Oral QD 3 No Stop Date Active metoprolol succinate ER 50 mg tablet,extended release 24 hr RxNorm: 988786 Give 1/2 Tablet(s) Oral QD 3 023 Inactive pregabalin 300 mg capsule RxNorm: 995927 Take 1 Capsule(s) Oral BID 3 024 Active pregabalin 300 mg capsule RxNorm: 914640 Take 1 Capsule(s) Oral BID 3 023 Inactive menthol 1.1 mg lozenges RxNorm: 871476 mucous membrane 3 Active Hemorrhoidal Cream rectal RxNorm: 4328050 rectal 3 Active Baby Wash topical RxNorm: topical 3 Active ufugd-vjqzl-jkprpl x-pramoxine topical RxNorm: 548308 topical 3 Active Medication Administered No Medication Administered data Results Observation Observation Code Item Item Code Result Date Service Location UA with Microscopic Reflex to Culture [id number] COLOR Yellow 05/30/20 Unknown UA with Microscopic Reflex to Culture 80695 Appearance Slightly Cloudy 05/30/20 Unknown UA with Microscopic Reflex to Culture 32739 GLUCOSE, URINE Negative mg/dL 05/30/20 Unknown UA with Microscopic Reflex to Culture 76516 BILIRUBIN, URINE Negative 05/30/20 Unknown UA with Microscopic Reflex to Culture 84522 Ketones Urine Negative mg/dL 05/30/20 Unknown UA with Microscopic Reflex to Culture 62867 Specific [place] Urine 1.019 05/30/20 Unknown UA with Microscopic Reflex to Culture 28108 BLOOD, URINE Moderate 05/30/20 Unknown UA with Microscopic Reflex to Culture 62577 pH Urine 6.0 05/30/20 Unknown UA with Microscopic Reflex to Culture 33208 Protein urine 20 mg/dL 05/30/20 Unknown UA with Microscopic Reflex to Culture 09748 UROBILINOGEN IRIS Normal mg/dL 05/30/20 Unknown UA with Microscopic Reflex to Culture 72496 Nitrites Negative 05/30/20 Unknown UA with Microscopic Reflex to Culture 57222 LEUK ESTERASE Large 05/30/20 Unknown UA with Microscopic Reflex to Culture 34161 Mucus Urine Present /LPF 05/30/20 Unknown UA with Microscopic Reflex to Culture 36568 RBC Urine 49 /HPF 05/30/20 Unknown UA with Microscopic Reflex to Culture 01747 WBC CLUMPS 6690-2 Present /HPF 05/30/20 Unknown UA with Microscopic Reflex to Culture 12719 WBC Urine 56755-3 >182 /HPF 05/30/20 Unknown UA with Microscopic Reflex to Culture 08102 TRANSITIONAL EPI <1 /HPF 05/30/20 Unknown Reason For Visit No Reason For Visit data Plan of Care Planned Activity Notes Codes Status Date Appointment: Isabel [address]ortel: [id number] [place] 04/23/2023 Appointment: Isabel Connor WPtel: [id number] [place] DEICER ELEMENT WINDER MACHINE 03/26/2023 Instructions Comment Date Shaista has resided at [facility] since 02/26/2023, previously lived [facility]. , has 3 children. Worked many jobs, her most favorite job was at [employer]??PMH: History of breast cancer s/p lumpectomy (2018), history of colon neoplasm s/p right hemicolectomy (2012), dementia, history of CVA (July 2019), aphasia, dysphagia, neurogenic bladder s/p supratherapeutic catheter (08/2020), type 2 diabetes, peripheral neuropathy, lumbar spinal stenosis, essential HTN, HLD.??Primary contact: Katarzyna (Daughter)POLST: DNR/DNI/CC (2020)Lab Schedule: As needed for comfort.Specialists: [facility] for suprapubic cath (change monthly) 03/30/2023
== END 2023-05-29 21:47 | disposition home or self-care (01) ==
LOC: AMB 05-31 09:21
PROVIDERS: Visit Provider Emergency Medicine Emergency Medical Services
DX: S09.93XA Unspecified injury of face, initial encounter (principal); W18.30XA Fall on same level, unspecified, initial encounter; Y92.129 Unspecified place in nursing home as the place of occurrence of the external cause
CPT/HCPCS: A0425; A0428

== ENCOUNTER 2023-07-04 22:23 | Emergency (ER) | payer MEDICARE, BC, SELFPAY ==
[2023-07-04 22:38] VITALS: BP 146/74; PULSE 75; RESP 18; TEMP 36.5; O2SAT 96
--- NOTE | 2023-07-04 22:51 | ED.NURSE ---
Spoke with pt's daughter and POA, Katarzyna. She states her mom has not been quite herself the last 2 days. Since pt is in ER, Katarzyna is requesting a UA be collected to rule out UTI. Dr. Palacios notified of POA's wishes.
--- NOTE | 2023-07-04 23:36 | ED.NURSE ---
16 Fr Mathews catheter placed under sterile fashion. 10cc sterile water in balloon. Pt tolerated procedure well. UA collected per POA request. Urine cloudy with sediment and strong odor. Brought to lab for testing.
[2023-07-04 23:38] LABS: Appearance Urine Cloudy (Clear); Bilirubin Urine Negative (Negative); Blood Urine 2+ (Negative); Color Urine Yellow (Yellow); Glucose Urine Negative (Negative); Ketones Urine Trace (Negative); Leukocyte Esterase Urine 2+ (Negative); Nitrite Urine Positive (Negative); Protein Urine 2+ (Negative); Specific Gravity Urine 1.025 (1.000-1.030); Urobilinogen Urine 0.2 (0.2-1.0)
--- OUTSIDE RECORDS SUMMARY | 2023-07-04 23:43 | XMS_ITS | CCD ---
Author Name Unknown Organization Unknown Care Team Providers Care Filter Press Pumper Name Role Phone Anca Pierce Primary Care Provider Unanata ilable Unavailable Chronic Care Management Unavaila ble Summary Purpose DataExchange Insurance Providers Payer name Policy type / Coverage type Covered alliance party ID Effective Begin Date Effective End Date Medicare [place] Medicare Part B [id number] Unknown Unknown BCBS of [place] Medicare Part B [id number] Unknown Unk nown Family history Sister Diagnosis Age At Onset Breast cancer Unknown Cancer Unknown Social History Social History Element Codes Description Effec tive Dates Marital status Unknown Significant Othe r Dheeraj 03/23/[address]: [id number] Has never s moked or chewed tobacco 03/23/[address]: 945497062 No Alcohol Consum ption 03/23/2023 Children Unknown Has Children daughter 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 [facility] 03/23/2023 Allergies, Adverse Reactions, Alerts Substance Reaction [...] Start Date Stop Date Status Fill Instructions lorazepam 0.5 mg tablet RxNorm: Take 1/2 Tablet(s) Oral BID as needed for hallucinations 06/05/20 024 Active lorazepam 0.5 mg tablet RxNorm: Take 1/2 Tablet(s) Oral BID as needed for hallucinations 06/05/20 023 Inactive metoprolol succinate ER 25 mg tablet,extended release 24 hr RxNorm: 521148 Take 1 Tablet(s) Oral QD 05/23/20 No Stop Date Active tramadol 50 mg tablet RxNorm: 746157 Take 1/2 Tablet(s) Oral TID 05/11/20 023 Inactive tramadol 50 mg tablet RxNorm: 724211 Take 1/2 Tablet(s) Oral BID 05/08/20 023 Inactive tramadol 50 mg tablet RxNorm: 883018 Take 1/2 Tablet(s) Oral BID 05/07/20 023 Inactive acetaminophen 500 mg tablet RxNorm: 288885 Take 2 Tablet(s) Oral TID 05/04/20 024 Active tramadol 50 mg tablet RxNorm: 370132 Take 1/2 Tablet(s) Oral QD as needed for pain 05/04/20 023 Inactive acetaminophen 500 mg tablet RxNorm: 546413 Take 2 Tablet(s) Oral TID 05/04/20 023 Inactive tramadol 50 mg tablet RxNorm: 187649 Take 1/2 Tablet(s) Oral QD as needed for pain 05/04/20 023 Inactive erythromycin 5 mg/gram (0.5 %) eye ointment RxNorm: 921308 Apply 1 Ribbon Ophthalmic QID Apply to RIGHT EYE. 04/23/20 023 Inactive Claritin 10 mg tablet RxNorm: 114728 Give 1 Tablet(s) Oral Q24H every 24 Hours as needed 04/20/20 No Stop Date Active Milk Of Magnesia Concentrated 2,400 mg/10 mL oral suspension RxNorm: 113688 Give 30 Milliliter(s) Oral Q24H every 24 Hours as needed for constipation 04/20/20 No Stop Date Active aspirin 325 mg tablet RxNorm: 975894 Chew 1 Tablet(s) Oral Q24H every 24 Hours as needed for chest pain PRN 04/20/20 No Stop Date Active hydrocortisone 1 % topical cream RxNorm: 364261 Topical apply to affected skin area topically PRN for insect bites, rashes, minor skin irritations up to 4x daily 04/20/20 No Stop Date Active guaifenesin 100 mg/5 mL oral liquid RxNorm: 865803 Give 10 Milliliter(s) Oral Q4H every four hours as needed for cough/congestion 04/20/20 No Stop Date Active Antacid (calcium carbonate) 200 mg calcium (500 mg) chewable tablet RxNorm: 234984 Chew 2 Tablet(s) Oral Q1H every hour as needed max 15 tabs/24 hours 04/20/20 No Stop Date Active bisacodyl 10 mg rectal suppository RxNorm: 386732 Insert 1 Suppository Rectal Q24H every 24 Hours as needed for constipation 04/20/20 No Stop Date Active loperamide 2 mg tablet RxNorm: 515385 Give 1 Tablet(s) Oral Q24H every 24 Hours as needed for diarrhea 04/20/20 No Stop Date Active acetaminophen 325 mg tablet RxNorm: 754938 Give 1 Tablet(s) Oral Q4H every four hours as needed 04/20/20 023 Inactive Hemorrhoid ointment RxNorm: 2107559 Apply 1 Application Rectal QID as needed for hemorrhoid pain. 04/11/20 023 Inactive or whatever size tube pharmacy holds. Hemorrhoid ointment RxNorm: 7977216 Apply 1 Application Rectal QID as needed for hemorrhoid pain. 04/11/20 023 Inactive or whatever size tube pharmacy holds. triamcinolone acetonide 0.025 % topical cream RxNorm: 5810945 Apply 1 Application Topical BID to psoriatic patches until healed, then BID PRN 03/29/20 23 024 Active triamcinolone acetonide 0.025 % topical cream RxNorm: 5871350 Apply 1 Application Topical BID to psoriatic patches until healed, then BID PRN 03/29/20 23 023 Inactive ketoconazole 2 % shampoo RxNorm: 487286 Topical apply to scalp topically in the evening every sun, and sunday, apply during all showers 03/26/20 No Stop Date Active lisinopril 40 mg tablet RxNorm: 641636 Give 1 Tablet(s) Oral QD 03/26/20 No Stop Date Active buspirone 10 mg tablet RxNorm: 223540 Give 1 Tablet(s) Oral BID 03/26/20 No Stop Date Active tolterodine 2 mg tablet RxNorm: 729621 Give 1 Tablet(s) Oral BID 03/26/20 No Stop Date Active nystatin 100,000 unit/gram topical powder RxNorm: 675813 Apply Topical as needed apply under breasts and groin topically PRN for yeast up to 2x daily 03/26/20 No Stop Date Active potassium chloride ER 20 mEq tablet,extended release RxNorm: 249980 Give 2 Tablet(s) Oral BID 03/26/20 No Stop Date Active insulin glargine (U-100) 100 unit/mL (3 mL) subcutaneous pen RxNorm: 155463 Unit(s) Subcutaneous inject 22 units SQ one time a day, give with breakfast 03/26/20 No Stop Date Active fluoxetine 20 mg capsule RxNorm: 845317 Give 1 Capsule(s) Oral QD give with 40 mg cap 03/26/20 No Stop Date Active fluoxetine 40 mg capsule RxNorm: 888849 Give 1 Capsule(s) Oral QD give with 20 mg cap 03/26/20 No Stop Date Active amlodipine 10 mg tablet RxNorm: 263903 Take 1 Tablet(s) Oral QD 03/26/20 No Stop Date Active metoprolol succinate ER 50 mg tablet,extended release 24 hr RxNorm: 791628 Give 1/2 Tablet(s) Oral QD 03/26/20 23 023 Inactive pregabalin 300 mg capsule RxNorm: 411315 Take 1 Capsule(s) Oral BID 02/29/20 23 024 Active pregabalin 300 mg capsule RxNorm: 755288 Take 1 Capsule(s) Oral BID 02/29/20 23 023 Inactive menthol 1.1 mg lozenges RxNorm: 146678 mucous membrane 04/20/20 Active Hemorrhoidal Cream rectal RxNorm: 1189491 rectal 05/23/20 Active Baby Wash topical RxNorm: topical 04/20/20 Active cqbwk-hbezs-hxmrtm x-pramoxine topical RxNorm: 276492 topical 04/20/20 Active Medication Administered No Medication Administered data Reason For Visit No Reason For Visit data Instructions Comment Date Shaista has resided at [facility] since 02/26/2023, previously lived [facility]. , has 3 children. Worked many jobs, her most favorite job was at [employer].??PMH: History of breast cancer s/p lumpectomy (2018), history of colon neoplasm s/p right hemicolectomy (2012), dementia, history of CVA (July 2019), aphasia, dysphagia, neurogenic bladder s/p supratherapeutic catheter (08/2020), type 2 diabetes, peripheral neuropathy, lumbar spinal stenosis, essential HTN, HLD.??Primary contact: Katarzyna (Daughter)POLST: DNR/DNI/CC (2020)Lab Schedule: As needed for comfort.Specialists: [facility] for suprapubic cath (change monthly) 03/30/2023
--- OUTSIDE RECORDS SUMMARY | 2023-07-04 23:43 | XMS_ITS | CCD ---
Author Name Talia Todd DO Address [address] [place] [address] Phone Organization [facility] Phone Care Team Providers Care Line Inspector Name Role Phone Anca Pierce Primary Care Provider Unava ilable Unavailable Chronic Care Management Unavaila ble Summary Purpose DataExchange Insurance Providers Payer name Policy type / Coverage type Covered green party ID Effective Begin Date Effective End Date Medicare [place] Medicare Part B [id number] Unknown Unknown [place] Medicare Part B [id number] Unknown Unk nown Family history Sister Diagnosis Age At Onset Breast cancer Unknown Cancer Unknown Social History Social History Element Codes Description Effec tive Dates Marital status Unknown Significant Othe r Dheeraj 03/23/[address]: 569369336 Has never s moked or chewed tobacco 03/23/[address]: 930048815 No Alcohol Consum ption 03/23/2023 Children Unknown Has Children daughter 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 [facility] 03/23/2023 Allergies, Adverse Reactions, Alerts Substance Reaction Codes Entered Date Inactivated Date Status fenofibrate RxNorm: 8703 03/26/2023 No Inactive Da te Active Statins Unknown 03/26/2023 No Inactive Date Ac tive Problems Condition Codes Effective Dates Condition St atus Polypharmacy ICD-10: Z79.899 ICD-9: V58.69 06/11/2023 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 ICD-9: [...] Fill Instructions tramadol 50 mg tablet RxNorm: 599863 TAKE 1/2 TABLET (25MG) BY MOUTH THREE TIMES DAILY DX:PAIN 06/11/20 23 024 Active NO REFILLS REMAIN PLEASE PROVIDE A NEW ORDER IF APPROPRIATE lorazepam 0.5 mg tablet RxNorm: 679578 Take 1/2 Tablet(s) Oral BID as needed for hallucinations 06/05/20 23 024 Active lorazepam 0.5 mg tablet RxNorm: 155948 Take 1/2 Tablet(s) Oral BID as needed for hallucinations 06/05/20 023 Inactive metoprolol succinate ER 25 mg tablet,extended release 24 hr RxNorm: 826184 Take 1 Tablet(s) Oral QD 05/23/20 No Stop Date Active tramadol 50 mg tablet RxNorm: 321792 Take 1/2 Tablet(s) Oral TID 05/11/20 023 Inactive tramadol 50 mg tablet RxNorm: 193434 Take 1/2 Tablet(s) Oral BID 05/08/20 023 Inactive tramadol 50 mg tablet RxNorm: 460835 Take 1/2 Tablet(s) Oral BID 05/07/20 023 Inactive acetaminophen 500 mg tablet RxNorm: 625625 Take 2 Tablet(s) Oral TID 05/04/20 024 Active tramadol 50 mg tablet RxNorm: 333942 Take 1/2 Tablet(s) Oral QD as needed for pain 05/04/20 023 Inactive acetaminophen 500 mg tablet RxNorm: 819877 Take 2 Tablet(s) Oral TID 05/04/20 023 Inactive tramadol 50 mg tablet RxNorm: 869388 Take 1/2 Tablet(s) Oral QD as needed for pain 05/04/20 023 Inactive erythromycin 5 mg/gram (0.5 %) eye ointment RxNorm: 906130 Apply 1 Ribbon Ophthalmic QID Apply to RIGHT EYE. 04/23/20 023 Inactive Claritin 10 mg tablet RxNorm: 837878 Give 1 Tablet(s) Oral Q24H every 24 Hours as needed 04/20/20 No Stop Date Active Milk Of Magnesia Concentrated 2,400 mg/10 mL oral suspension RxNorm: 098524 Give 30 Milliliter(s) Oral Q24H every 24 Hours as needed for constipation 04/20/20 No Stop Date Active aspirin 325 mg tablet RxNorm: 738131 Chew 1 Tablet(s) Oral Q24H every 24 Hours as needed for chest pain PRN 04/20/20 No Stop Date Active hydrocortisone 1 % topical cream RxNorm: 365580 Topical apply to affected skin area topically PRN for insect bites, rashes, minor skin irritations up to 4x daily 04/20/20 No Stop Date Active guaifenesin 100 mg/5 mL oral liquid RxNorm: 851380 Give 10 Milliliter(s) Oral Q4H every four hours as needed for cough/congestion 04/20/20 No Stop Date Active Antacid (calcium carbonate) 200 mg calcium (500 mg) chewable tablet RxNorm: 920267 Chew 2 Tablet(s) Oral Q1H every hour as needed max 15 tabs/24 hours 04/20/20 No Stop Date Active bisacodyl 10 mg rectal suppository RxNorm: 521982 Insert 1 Suppository Rectal Q24H every 24 Hours as needed for constipation 04/20/20 No Stop Date Active loperamide 2 mg tablet RxNorm: 885067 Give 1 Tablet(s) Oral Q24H every 24 Hours as needed for diarrhea 04/20/20 No Stop Date Active acetaminophen 325 mg tablet RxNorm: 640527 Give 1 Tablet(s) Oral Q4H every four hours as needed 04/20/20 23 023 Inactive Hemorrhoid ointment RxNorm: 3260893 Apply 1 Application Rectal QID as needed for hemorrhoid pain. 04/11/20 23 023 Inactive or whatever size tube pharmacy holds. Hemorrhoid ointment RxNorm: 8110965 Apply 1 Application Rectal QID as needed for hemorrhoid pain. 04/11/20 23 023 Inactive or whatever size tube pharmacy holds. triamcinolone acetonide 0.025 % topical cream RxNorm: 1528092 Apply 1 Application Topical BID to psoriatic patches until healed, then BID PRN 03/29/20 23 024 Active triamcinolone acetonide 0.025 % topical cream RxNorm: 9738540 Apply 1 Application Topical BID to psoriatic patches until healed, then BID PRN 03/29/20 23 023 Inactive ketoconazole 2 % shampoo RxNorm: 315072 Topical apply to scalp topically in the evening every sun, and sunday, apply during all showers 03/26/20 No Stop Date Active lisinopril 40 mg tablet RxNorm: 712479 Give 1 Tablet(s) Oral QD 03/26/20 No Stop Date Active buspirone 10 mg tablet RxNorm: 016278 Give 1 Tablet(s) Oral BID 03/26/20 No Stop Date Active tolterodine 2 mg tablet RxNorm: 564395 Give 1 Tablet(s) Oral BID 03/26/20 No Stop Date Active nystatin 100,000 unit/gram topical powder RxNorm: 711507 Apply Topical as needed apply under breasts and groin topically PRN for yeast up to 2x daily 03/26/20 No Stop Date Active potassium chloride ER 20 mEq tablet,extended release RxNorm: 250934 Give 2 Tablet(s) Oral BID 03/26/20 No Stop Date Active insulin glargine (U-100) 100 unit/mL (3 mL) subcutaneous pen RxNorm: 635588 Unit(s) Subcutaneous inject 22 units SQ one time a day, give with breakfast 03/26/20 No Stop Date Active fluoxetine 20 mg capsule RxNorm: 593383 Give 1 Capsule(s) Oral QD give with 40 mg cap 03/26/20 No Stop Date Active fluoxetine 40 mg capsule RxNorm: 447635 Give 1 Capsule(s) Oral QD give with 20 mg cap 03/26/20 No Stop Date Active amlodipine 10 mg tablet RxNorm: 851742 Take 1 Tablet(s) Oral QD 03/26/20 23 No Stop Date Active metoprolol succinate ER 50 mg tablet,extended release 24 hr RxNorm: 337711 Give 1/2 Tablet(s) Oral QD 03/26/20 23 023 Inactive pregabalin 300 mg capsule RxNorm: 433720 Take 1 Capsule(s) Oral BID 02/29/20 23 024 Active pregabalin 300 mg capsule RxNorm: 907951 Take 1 Capsule(s) Oral BID 02/29/20 23 023 Inactive menthol 1.1 mg lozenges RxNorm: 486433 mucous membrane 10/20/20 23 Active Hemorrhoidal Cream rectal RxNorm: 0103354 rectal 05/23/20 Active Baby Wash topical RxNorm: topical 04/20/20 Active irqil-gstct-yumtql x-pramoxine topical RxNorm: 434196 topical 04/20/20 Active Medication Administered No Medication Administered data Reason For Visit No Reason For Visit data Encounters Encounter Performer Location Location Address Codes Date ([address]) Home or Residence Visit Est Pt - Low Level, 30 mins Diagnosis: Polypharmacy[ICD 10: Z79.899] Talia Todd [facility] [address] [place] [address] CPT-4: 71642 06/11/2023 Plan of Care Planned Activity Notes Codes Status Date Appointment: Isabel Connortel: [id number] [address] 04/23/2023 Appointment: Isabel Connor WPtel: [address] DEVOPS DEVELOPER 03/26/2023 Instructions Comment Date Shaista has resided at [facility] since 02/26/2023, previously lived [facility]. , has 3 children. Worked many jobs, her most favorite job was at [employer].??PMH: History of breast cancer s/p lumpectomy (2018), history of colon neoplasm s/p right hemicolectomy (2012), dementia, history of CVA (July 2019), aphasia, dysphagia, neurogenic bladder s/p supratherapeutic catheter (08/2020), type 2 diabetes, peripheral neuropathy, lumbar spinal stenosis, essential HTN, HLD.??Primary contact: Katarzyna (Daughter)POLST: DNR/DNI/CC (2020)Lab Schedule: As needed for comfort.Specialists: [facility] for suprapubic cath (change monthly) 03/30/2023 Polypharmacy Previous E/M visit note reviewed today, including list of patient? s active problems. Patient? s current medication list reviewed today in accordance with [facility]? s ACO Polypharmacy Reduction Program. No changes recommended at this time. Continue the current plan of care as established by the primary care provider. ??. 06/11/2023
--- OUTSIDE RECORDS SUMMARY | 2023-07-04 23:44 | XMS_ITS | CCD ---
Author Name Unknown Organization Unknown Care Team Providers Care Surveying Or Spatial Science Technician Name Role Phone Anca Pierce Primary Care Provider Unanata ilable Unavailable Chronic Care Management Unavaila ble Summary Purpose DataExchange Insurance Providers Payer name Policy type / Coverage type Covered constitution party ID Effective Begin Date Effective End Date Medicare [place] Medicare Part B [id number] Unknown Unknown [place] Medicare Part B [id number] Unknown Unk nown Family history Sister Diagnosis Age At Onset Breast cancer Unknown Cancer Unknown Social History Social History Element Codes Description Effec tive Dates Marital status Unknown Significant Othe r Dheeraj 03/23/[address]: [id number] Has never s moked or chewed tobacco 03/23/[address]: 362244566 No Alcohol Consum ption 03/23/2023 Children Unknown Has Children daughter 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 [facility] 03/23/2023 Allergies, Adverse Reactions, Alerts [...] Fill Instructions tramadol 50 mg tablet RxNorm: 636597 TAKE 1/2 TABLET (25MG) BY MOUTH THREE TIMES DAILY DX:PAIN 06/11/20 23 024 Active NO REFILLS REMAIN PLEASE PROVIDE A NEW ORDER IF APPROPRIATE lorazepam 0.5 mg tablet RxNorm: 204962 Take 1/2 Tablet(s) Oral BID as needed for hallucinations 06/05/20 024 Active lorazepam 0.5 mg tablet RxNorm: 907974 Take 1/2 Tablet(s) Oral BID as needed for hallucinations 06/05/20 023 Inactive metoprolol succinate ER 25 mg tablet,extended release 24 hr RxNorm: 178447 Take 1 Tablet(s) Oral QD 05/23/20 No Stop Date Active tramadol 50 mg tablet RxNorm: 860313 Take 1/2 Tablet(s) Oral TID 05/11/20 023 Inactive tramadol 50 mg tablet RxNorm: 854624 Take 1/2 Tablet(s) Oral BID 05/08/20 023 Inactive tramadol 50 mg tablet RxNorm: 842649 Take 1/2 Tablet(s) Oral BID 05/07/20 023 Inactive acetaminophen 500 mg tablet RxNorm: 527742 Take 2 Tablet(s) Oral TID 05/04/20 024 Active tramadol 50 mg tablet RxNorm: 852618 Take 1/2 Tablet(s) Oral QD as needed for pain 05/04/20 023 Inactive acetaminophen 500 mg tablet RxNorm: 729203 Take 2 Tablet(s) Oral TID 05/04/20 023 Inactive tramadol 50 mg tablet RxNorm: 610121 Take 1/2 Tablet(s) Oral QD as needed for pain 05/04/20 023 Inactive erythromycin 5 mg/gram (0.5 %) eye ointment RxNorm: 006125 Apply 1 Ribbon Ophthalmic QID Apply to RIGHT EYE. 04/23/20 023 Inactive Claritin 10 mg tablet RxNorm: 804458 Give 1 Tablet(s) Oral Q24H every 24 Hours as needed 04/20/20 No Stop Date Active Milk Of Magnesia Concentrated 2,400 mg/10 mL oral suspension RxNorm: 859124 Give 30 Milliliter(s) Oral Q24H every 24 Hours as needed for constipation 04/20/20 No Stop Date Active aspirin 325 mg tablet RxNorm: 769957 Chew 1 Tablet(s) Oral Q24H every 24 Hours as needed for chest pain PRN 04/20/20 No Stop Date Active hydrocortisone 1 % topical cream RxNorm: 971627 Topical apply to affected skin area topically PRN for insect bites, rashes, minor skin irritations up to 4x daily 04/20/20 No Stop Date Active guaifenesin 100 mg/5 mL oral liquid RxNorm: 414733 Give 10 Milliliter(s) Oral Q4H every four hours as needed for cough/congestion 04/20/20 No Stop Date Active Antacid (calcium carbonate) 200 mg calcium (500 mg) chewable tablet RxNorm: 163897 Chew 2 Tablet(s) Oral Q1H every hour as needed max 15 tabs/24 hours 04/20/20 No Stop Date Active bisacodyl 10 mg rectal suppository RxNorm: 362025 Insert 1 Suppository Rectal Q24H every 24 Hours as needed for constipation 04/20/20 No Stop Date Active loperamide 2 mg tablet RxNorm: 164486 Give 1 Tablet(s) Oral Q24H every 24 Hours as needed for diarrhea 04/20/20 No Stop Date Active acetaminophen 325 mg tablet RxNorm: 865566 Give 1 Tablet(s) Oral Q4H every four hours as needed 04/20/20 023 Inactive Hemorrhoid ointment RxNorm: 6288344 Apply 1 Application Rectal QID as needed for hemorrhoid pain. 04/11/20 023 Inactive or whatever size tube pharmacy holds. Hemorrhoid ointment RxNorm: 1207222 Apply 1 Application Rectal QID as needed for hemorrhoid pain. 04/11/20 023 Inactive or whatever size tube pharmacy holds. triamcinolone acetonide 0.025 % topical cream RxNorm: 5238424 Apply 1 Application Topical BID to psoriatic patches until healed, then BID PRN 03/29/20 23 024 Active triamcinolone acetonide 0.025 % topical cream RxNorm: 2917697 Apply 1 Application Topical BID to psoriatic patches until healed, then BID PRN 03/29/20 23 023 Inactive ketoconazole 2 % shampoo RxNorm: 455401 Topical apply to scalp topically in the evening every sun, and sunday, apply during all showers 03/26/20 No Stop Date Active lisinopril 40 mg tablet RxNorm: 032314 Give 1 Tablet(s) Oral QD 03/26/20 No Stop Date Active buspirone 10 mg tablet RxNorm: 636280 Give 1 Tablet(s) Oral BID 03/26/20 23 No Stop Date Active tolterodine 2 mg tablet RxNorm: 948061 Give 1 Tablet(s) Oral BID 03/26/20 No Stop Date Active nystatin 100,000 unit/gram topical powder RxNorm: 573274 Apply Topical as needed apply under breasts and groin topically PRN for yeast up to 2x daily 03/26/20 No Stop Date Active potassium chloride ER 20 mEq tablet,extended release RxNorm: 044193 Give 2 Tablet(s) Oral BID 03/26/20 No Stop Date Active insulin glargine (U-100) 100 unit/mL (3 mL) subcutaneous pen RxNorm: 751052 Unit(s) Subcutaneous inject 22 units SQ one time a day, give with breakfast 03/26/20 No Stop Date Active fluoxetine 20 mg capsule RxNorm: 822922 Give 1 Capsule(s) Oral QD give with 40 mg cap 03/26/20 No Stop Date Active fluoxetine 40 mg capsule RxNorm: 068365 Give 1 Capsule(s) Oral QD give with 20 mg cap 03/26/20 No Stop Date Active amlodipine 10 mg tablet RxNorm: 418593 Take 1 Tablet(s) Oral QD 03/26/20 No Stop Date Active metoprolol succinate ER 50 mg tablet,extended release 24 hr RxNorm: 716318 Give 1/2 Tablet(s) Oral QD 03/26/20 23 023 Inactive pregabalin 300 mg capsule RxNorm: 253649 Take 1 Capsule(s) Oral BID 02/29/20 23 024 Active pregabalin 300 mg capsule RxNorm: 125774 Take 1 Capsule(s) Oral BID 02/29/20 23 023 Inactive menthol 1.1 mg lozenges RxNorm: 931109 mucous membrane 04/20/20 Active Hemorrhoidal Cream rectal RxNorm: 0937175 rectal 05/23/20 Active Baby Wash topical RxNorm: topical 04/20/20 Active wtnlq-vqpje-zohmky x-pramoxine topical RxNorm: 740592 topical 04/20/20 23 Active Medication Administered No Medication Administered data Reason For Visit No Reason For Visit data Instructions Comment Date Shaista has resided at [facility] since 02/26/2023, previously lived [facility]. , has 3 children. Worked many jobs, her most favorite job was at [employer].??PMH: History of breast cancer s/p lumpectomy (2018), history of colon neoplasm s/p right hemicolectomy (2012), dementia, history of CVA (July 2019), aphasia, dysphagia, neurogenic bladder s/p supratherapeutic catheter (08/2020), type 2 diabetes, peripheral neuropathy, lumbar spinal stenosis, essential HTN, HLD.??Primary contact: Katarzyna (Daughter)POLST: DNR/DNI/CC (2020)Lab Schedule: As needed for comfort.Specialists: [facility] for suprapubic cath (change monthly) 03/30/2023
--- OUTSIDE RECORDS SUMMARY | 2023-07-04 23:44 | XMS_ITS | CCD ---
Author Name Anca Pierce Address [address] [facility] [address] [facility] [address] [place] [address] Phone Organization [facility] Phone Care Team Providers Care Degreasing Solution Reclaimer Name Role Phone Anca Pierce Primary Care Provider Unava ilable Unavailable Chronic Care Management Unavaila ble Summary Purpose DataExchange Insurance Providers Payer name Policy type / Coverage type Covered green party ID Effective Begin Date Effective End Date [place] Part B [id number] Unknown Unknown [place] Medicare Part B [id number] Unknown Unk nown Family history Sister Diagnosis Age At Onset Breast cancer Unknown Cancer Unknown Social History Social History Element Codes Description Effec tive Dates Marital status Unknown Significant Othe r Dheeraj 03/23/[address]: 490113889 Has never s moked or chewed tobacco 03/23/[address]: 024522995 No Alcohol Consum ption 03/23/2023 Children Unknown Has Children daughter 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 [facility] 03/23/2023 Allergies, Adverse Reactions, Alerts Substance Reaction Codes Entered Date Inactivated Date Status fenofibrate RxNorm: 8703 03/26/2023 No Inactive Da te Active Statins Unknown 03/26/2023 No Inactive Date Ac tive Problems Condition Codes Effective Dates Condition St atus 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 ICD-9: 707.8 06/26/2023 Active Dementia ICD-10: F03.90 ICD-9: 294.20 06/26/2023 Active Neurogenic bladder ICD-10: N31.9 ICD-9: 596.54 06/26/2023 Active Polypharmacy ICD-10: Z79.899 ICD-9: V58.69 06/11/2023 Active Spinal stenosis ICD-10: M48.00 ICD-9: 724.00 05/28/2023 Active Essential (primary) hypertension ICD-10: I10 ICD-9: 401.9 04/23/2023 Active Hemiparesis affecting right side as late effect of cerebrovascular accident ICD-10: I69.351 ICD-9: 438.20 04/23/2023 Active Hemorrhoids ICD-10: K64.9 ICD-9: 455.6 04/23/2023 Active Rash of neck ICD-10: R21 [...] Fill Instructions tramadol 50 mg tablet RxNorm: 045970 TAKE 1/2 TABLET (25MG) BY MOUTH THREE TIMES DAILY DX:PAIN 06/11/20 23 024 Active NO REFILLS REMAIN PLEASE PROVIDE A NEW ORDER IF APPROPRIATE lorazepam 0.5 mg tablet RxNorm: 076660 Take 1/2 Tablet(s) Oral BID as needed for hallucinations 06/05/20 23 024 Active lorazepam 0.5 mg tablet RxNorm: 367217 Take 1/2 Tablet(s) Oral BID as needed for hallucinations 06/05/20 023 Inactive metoprolol succinate ER 25 mg tablet,extended release 24 hr RxNorm: 599823 Take 1 Tablet(s) Oral QD 05/23/20 No Stop Date Active tramadol 50 mg tablet RxNorm: 075370 Take 1/2 Tablet(s) Oral TID 05/11/20 023 Inactive tramadol 50 mg tablet RxNorm: 352400 Take 1/2 Tablet(s) Oral BID 05/08/20 023 Inactive tramadol 50 mg tablet RxNorm: 790620 Take 1/2 Tablet(s) Oral BID 05/07/20 023 Inactive acetaminophen 500 mg tablet RxNorm: 084508 Take 2 Tablet(s) Oral TID 05/04/20 024 Active tramadol 50 mg tablet RxNorm: 325922 Take 1/2 Tablet(s) Oral QD as needed for pain 05/04/20 023 Inactive acetaminophen 500 mg tablet RxNorm: 989634 Take 2 Tablet(s) Oral TID 05/04/20 023 Inactive tramadol 50 mg tablet RxNorm: 737393 Take 1/2 Tablet(s) Oral QD as needed for pain 05/04/20 023 Inactive erythromycin 5 mg/gram (0.5 %) eye ointment RxNorm: 718627 Apply 1 Ribbon Ophthalmic QID Apply to RIGHT EYE. 04/23/20 023 Inactive Claritin 10 mg tablet RxNorm: 886805 Give 1 Tablet(s) Oral Q24H every 24 Hours as needed 04/20/20 No Stop Date Active Milk Of Magnesia Concentrated 2,400 mg/10 mL oral suspension RxNorm: 573953 Give 30 Milliliter(s) Oral Q24H every 24 Hours as needed for constipation 04/20/20 No Stop Date Active aspirin 325 mg tablet RxNorm: 685468 Chew 1 Tablet(s) Oral Q24H every 24 Hours as needed for chest pain PRN 04/20/20 No Stop Date Active hydrocortisone 1 % topical cream RxNorm: 899770 Topical apply to affected skin area topically PRN for insect bites, rashes, minor skin irritations up to 4x daily 04/20/20 No Stop Date Active guaifenesin 100 mg/5 mL oral liquid RxNorm: 700632 Give 10 Milliliter(s) Oral Q4H every four hours as needed for cough/congestion 04/20/20 No Stop Date Active Antacid (calcium carbonate) 200 mg calcium (500 mg) chewable tablet RxNorm: 715692 Chew 2 Tablet(s) Oral Q1H every hour as needed max 15 tabs/24 hours 04/20/20 No Stop Date Active bisacodyl 10 mg rectal suppository RxNorm: 414935 Insert 1 Suppository Rectal Q24H every 24 Hours as needed for constipation 04/20/20 No Stop Date Active loperamide 2 mg tablet RxNorm: 577917 Give 1 Tablet(s) Oral Q24H every 24 Hours as needed for diarrhea 04/20/20 No Stop Date Active acetaminophen 325 mg tablet RxNorm: 331745 Give 1 Tablet(s) Oral Q4H every four hours as needed 04/20/20 023 Inactive Hemorrhoid ointment RxNorm: 0279244 Apply 1 Application Rectal QID as needed for hemorrhoid pain. 04/11/20 023 Inactive or whatever size tube pharmacy holds. Hemorrhoid ointment RxNorm: 4217034 Apply 1 Application Rectal QID as needed for hemorrhoid pain. 04/11/20 23 023 Inactive or whatever size tube pharmacy holds. triamcinolone acetonide 0.025 % topical cream RxNorm: 8342207 Apply 1 Application Topical BID to psoriatic patches until healed, then BID PRN 03/29/20 23 024 Active triamcinolone acetonide 0.025 % topical cream RxNorm: 0979476 Apply 1 Application Topical BID to psoriatic patches until healed, then BID PRN 03/29/20 23 023 Inactive ketoconazole 2 % shampoo RxNorm: 002496 Topical apply to scalp topically in the evening every sun, and sunday, apply during all showers 03/26/20 No Stop Date Active lisinopril 40 mg tablet RxNorm: 099443 Give 1 Tablet(s) Oral QD 03/26/20 23 No Stop Date Active buspirone 10 mg tablet RxNorm: 501165 Give 1 Tablet(s) Oral BID 03/26/20 No Stop Date Active tolterodine 2 mg tablet RxNorm: 357157 Give 1 Tablet(s) Oral BID 03/26/20 No Stop Date Active nystatin 100,000 unit/gram topical powder RxNorm: 447127 Apply Topical as needed apply under breasts and groin topically PRN for yeast up to 2x daily 03/26/20 No Stop Date Active potassium chloride ER 20 mEq tablet,extended release RxNorm: 053264 Give 2 Tablet(s) Oral BID 03/26/20 No Stop Date Active insulin glargine (U-100) 100 unit/mL (3 mL) subcutaneous pen RxNorm: 790713 Unit(s) Subcutaneous inject 22 units SQ one time a day, give with breakfast 03/26/20 No Stop Date Active fluoxetine 20 mg capsule RxNorm: 754450 Give 1 Capsule(s) Oral QD give with 40 mg cap 03/26/20 No Stop Date Active fluoxetine 40 mg capsule RxNorm: 536069 Give 1 Capsule(s) Oral QD give with 20 mg cap 03/26/20 23 No Stop Date Active amlodipine 10 mg tablet RxNorm: 038762 Take 1 Tablet(s) Oral QD 03/26/20 23 No Stop Date Active metoprolol succinate ER 50 mg tablet,extended release 24 hr RxNorm: 974604 Give 1/2 Tablet(s) Oral QD 03/26/20 23 023 Inactive pregabalin 300 mg capsule RxNorm: 758326 Take 1 Capsule(s) Oral BID 02/29/20 23 024 Active pregabalin 300 mg capsule RxNorm: 952543 Take 1 Capsule(s) Oral BID 02/29/20 23 023 Inactive menthol 1.1 mg lozenges RxNorm: 185615 mucous membrane 04/20/20 23 Active Hemorrhoidal Cream rectal RxNorm: 6757944 rectal 05/23/20 Active Baby Wash topical RxNorm: topical 04/20/20 Active bouqc-agnvi-jfihmx x-pramoxine topical RxNorm: 751217 topical 04/20/20 Active Medication Administered No Medication Administered data Procedures Procedure Codes Date SYS BP LESS 140 CPT-4: G8752 06/26/2023 ZABALA BP LESS 90 CPT-4: G8754 06/26/2023 Vital Signs Date Vital 06/26/2023 Blood Pressure 1: 115/54 Code: 8480-6 Heart Rate 1: 63 bpm Code: 8867-4 Respiratory Rate: 18 bpm SpO2: 98% Temperature: 36.5 (C) / 97.7 (F) Weight: 186 lbs Code: 3141-9 Reason For Visit No Reason For Visit data Encounters Encounter Performer Location Location Address Codes Date ([address]) Home or Residence Visit Est Pt - Moderate Level, 40 mins Diagnosis: Chronic ulcer of buttock[ICD10: L98.419] Diagnosis: Dementia[ICD10: F03.90] Diagnosis: Neurogenic bladder[ICD10: N31.9] Anca Connor [address] [address] CPT-4: 90956 06/26/2023 Plan of Care Planned Activity Notes Codes Status Date Patient Education: Patient M edication Summary Completed 06/26/2023 Patient Education: Influenza Complet ed 06/26/2023 Appointment: Pre-step Telehealth 05/2023 Appointment: Isabel Connor [address]el: [id number] [place] 04/23/2023 Appointment: Isabel Connor W[address]el: [id number] [place] MINUTE CLERK 03/26/2023 Instructions Comment Date Shaista has resided at [facility] since 02/26/2023, previously lived [facility]. , has 3 children. Worked many jobs, her most favorite job was at [employer]??PMH: History of breast cancer s/p lumpectomy (2019), history of colon neoplasm s/p right hemicolectomy (2012), dementia, history of CVA (July 2019), aphasia, dysphagia, neurogenic bladder s/p supratherapeutic catheter (08/2020), type 2 diabetes, peripheral neuropathy, lumbar spinal stenosis, essential HTN, HLD.??Primary contact: Katarzyna (Daughter)POLST: DNR/DNI/CC (2020)Lab Schedule: As needed for comfort.Specialists: [facility] for suprapubic cath (change monthly) 03/30/2023 Neurogenic bladder Catheter changed by home care today. Dementia Pt given lorazepam prn for hallucinations/behavioral issues. Discussed with nursing this is likely secondary to tramadol use. Nursing and patient's daughter would like her to continue on tramadol. Chronic ulcer of buttock Continues with home care for wound cares. Nursing reports patient had wound care done this AM. Home care had recommended debridement at one point although due to patient's lack of mobility and difficulty leaving facility, home care nurse felt comfortable continuing wound cares and monitoring with off-loading.. 06/26/2023
[2023-07-04 23:46] LABS: Bacteria Urine Moderate; Squamous Epithelial Cell Urine Few (None-Few); WBC Urine 25-50 (0-5)
--- NOTE | 2023-07-05 00:25 | ED_ITS ---
HPI - General Adult General Chief complaint: Urogenital Problems, Female Stated complaint: Catheter problems Time Seen by Provider: 07/04/23 22:49 History of Present Illness HPI narrative: This is an 82-year-old female with a history of dementia, previous stroke, chronic indwelling suprapubic catheter (patient says initially placed at least 3 years ago). She has a pulsed form that indicates that she is DNR/DNI, and would seek medical care focused on comfort. She would want oral antibiotics but no hospitalization or IV antibiotics. She is brought to the ER today by EMS from her long-term care facility/memory care because she pulled out her catheter tonight. She pulled out her suprapubic catheter tonight. There was bleeding as evidence by dry blood on her hand and on her undergarment. No ongoing active bleeding. EMS responded and they report that the catheter balloon was inflated after she pulled out. Her daughter, Katarzyna was visiting her today and noticed that she seemed more confused than normal and was hallucinating. She has not had any obvious fever. No obvious pain. No vomiting. She was concerned that she may have a UTI. She has a history of similar behaviors with UTIs in the past. In reviewing her medical record I see that she had a urine culture from January 2022 that grew Klebsiella, pansensitive. Related Data Home Medications Medication Instructions Recorded Confirmed acetaminophen 500 mg tablet mg PO 07/04/23 amlodipine 10 mg tablet 10 mg PO DAILY 07/04/23 07/04/23 buspirone 10 mg tablet 10 mg PO BID 07/04/23 07/04/23 fluoxetine 20 mg capsule 20 mg PO DAILY 07/04/23 07/04/23 fluoxetine 40 mg capsule 40 mg PO DAILY 07/04/23 07/04/23 insulin glargine-yfgn 100 unit/mL 22 unit subcut DAILY 07/04/23 07/04/23 (3 mL) subcutaneous pen ketoconazole 2 % shampoo topical QPM 07/04/23 lisinopril 40 mg tablet 40 mg PO DAILY 07/04/23 07/04/23 lorazepam 0.5 mg tablet 0.25 mg PO BID PRN hallucinations 07/04/23 07/04/23 metoprolol succinate 25 mg 25 mg PO DAILY 07/04/23 07/04/23 tablet,extended release 24 hr pregabalin 300 mg capsule 300 mg PO BID 07/04/23 07/04/23 tolterodine 2 mg tablet 2 mg PO BID 07/04/23 07/04/23 tramadol 50 mg tablet mg PO 07/04/23 triamcinolone acetonide 0.025 % applic topical BID 07/04/23 topical cream Previous Rx's Medication Instructions Recorded cephalexin 500 mg capsule 500 mg PO BID #14 caps 07/05/23 Allergies Allergy/AdvReac Type Severity Reaction Status Date / Time fenofibrate [From Tricor] Allergy Unknown Verified 07/04/23 22:47 Fjwmvzf-LYP-LlV Reductase Allergy Unknown Verified 07/04/23 22:47 Inhibitor PFSH [facility] Medical History Health care directive on file ?Z78.9 - Other specified health status (ICD-10) Social History Smoking Status: Never smoker Do you use any of these nicotine containing products: None Second hand tobacco smoke exposure: No How often do you have a drink containing alcohol: never How often do you have six or more drinks on one occasion: Never AUDIT-C Alcohol total score: 0 Non-prescribed substance use: denies use service: No Exam Narrative: Exam Narrative: Constitutional: Appears well-developed and well-nourished. Alert. Conversant. Non toxic. HENT: Head: Atraumatic. Nose: Nose normal. Mouth/Throat: Oral mucosa is clear and moist. no trismus. Eyes: Conjunctivae normal. EOM normal. Pupils equal, round, and reactive to light. No scleral icterus. Neck: Normal range of motion. Neck supple. No tracheal deviation present. Cardiovascular: Normal rate, regular rhythm. No gallop. No friction rub. No murmur heard. Symmetric radial artery pulses Pulmonary/Chest: Effort normal. No stridor. No respiratory distress. No wheezes. No rales. No rhonchi . No tenderness. Abdominal: Soft. Bowel sounds normal. No distension. No mass. No tenderness. No rebound. No guarding. Dry blood around catheter site. No obvious trauma externally. Musculoskeletal: RUE: Normal range of motion. No tenderness. No deformity LUE: Normal range of motion. No tenderness. No deformity RLE: Normal range of motion. No edema. No tenderness. No deformity LLE: Normal range of motion. No edema. No tenderness. No deformity Neurological: Alert and oriented to person, place, but not date. She is able to tell me that she pulled bladder catheter tonight but can not explain why. Baseline strength. CN II-VII intact. No sensory deficit. GCS eye subscore is 4. GCS verbal subscore is 5. GCS motor subscore is 6. Normal coordination Skin: Skin is warm and dry. No rash noted. No pallor. Normal capillary refill. Psychiatric: She is polite but seems mildly confused. This limits psych exam. Normal mood. Normal affect. Const: Vital Signs, click to edit/add: Vital Signs - 24 hr 07/04/23 22:38 Temperature 97.7 F Pulse Rate [Pulse Oximeter] 75 Respiratory Rate 18 Blood Pressure [Le ft Forearm] 146/74 H Pulse Oximetry 96 Oxygen Delivery Me thod Room Air Course Vital Signs Vital signs: Initial Vital Signs Temperature 97.7 F 07/04/23 22:38 Temperature Source Temporal Artery Scan 07/04/23 22:38 Pulse Rate 75 07/04/23 22:38 Pulse Rhythm Regular 07/04/23 22:38 Pulse Strength 3+ Normal 07/04/23 22:38 Respiratory Rate 18 07/04/23 22:38 Blood Pressure 146/74 H 07/04/23 22:38 Blood Pressure Mean 98 07/04/23 22:38 Blood Pressure Position Semi-Fowlers 07/04/23 22:38 Pulse Oximetry 96 07/04/23 22:38 Oxygen Delivery Method Room Air 07/04/23 22:38 Vital Signs Temperature 97.7 F 07/04/23 22:38 Pulse Rate 75 07/04/23 22:38 Respiratory Rate 18 07/04/23 22:38 Blood Pressure 146/74 H 07/04/23 22:38 Pulse Oximetry 96 07/04/23 22:38 Oxygen Delivery Method Room Air 07/04/23 22:38 Temperature 97.7 F 07/04/23 22:38 Pulse Rate 75 07/04/23 22:38 Respiratory Rate 18 07/04/23 22:38 Blood Pressure 146/74 H 07/04/23 22:38 Pulse Oximetry 96 07/04/23 22:38 Oxygen Delivery Method Room Air 07/04/23 22:38 Medical Decision Making MDM Narrative Medical decision making narrative: 82-year-old female brought to the ER today from her memory care after she pulled out her suprapubic catheter. There was evidence for bleeding that had occurred at home but no active bleeding here in the ER. Catheter was easily replaced here in the ER. Urine output from the new catheter was yellow and nonbloody. She is not anticoagulated. Urinalysis is abnormal with positive nitrite, leuko cyte esterase, pyuria. Kaleigh may be some degree of colonization in a patient with chronic indwelling catheter, suspect this represents a true UTI given the patient's associated change in mental status. At this point she is hemodynamically stable and not febrile. Will initiate a course of oral antibiotics. First dose cephalexin administered here in the ER. Discussed with the patient's daughter and power of collections attorney. Urine culture pending at this time. We will adjust antibiotics as indicated by sensitivities. Her daughter is agreeable. She will be transferred by EMS back to [facility]. Lab Data Labs: Lab Results 07/04/23 Range/Units 23:20 Urine Color Yellow (Yellow) Urine Appearance Cloudy A (Clear) Urine pH 6.0 (5.0-8.5) Ur Specific [place] 1.025 (1.000-1.030) Urine Protein 2+ A (Negative) Urine Glucose (UA) Negative (Negative) Urine Ketones Trace A (Negative) Urine Blood 2+ A (Negative) Urine Nitrite Positive A (Negative) Urine Bilirubin Negative (Negative) Urine Urobilinogen 0.2 (0.2-1.0) Ur Leukocyte Esterase 2+ A (Negative) Urine RBC 2-5 A (0-2) Urine WBC 25-50 A (0-5) Ur Squamous Epith Cells Few (None-Few) Urine Bacteria Moderate A (None) Discharge Plan Discharge Clinical Impression: Acute UTI, Dislodged Mathews catheter Patient Disposition: Home w/ Parent or Adult Condition: Stable Instructions: Mathews Catheter Placement and Care (ED), Catheter-associated Urinary Tract Infection (ED) Additional Instructions: Please call her doctor or come back to the ER if you have any concerns, especially worsening confusion, high fever, vomiting. Her urine sample shows signs of an infection. Please treat her with the prescribed antibiotics (cephalexin 500 mg) twice daily for seven days. Prescriptions: New cephalexin 500 mg capsule 500 mg PO BID Qty: 14 0RF No Action fluoxetine 40 mg capsule 40 mg PO DAILY ketoconazole 2 % shampoo topical QPM tramadol 50 mg tablet PO acetaminophen 500 mg tablet PO tolterodine 2 mg tablet 2 mg PO BID lorazepam 0.5 mg tablet 0.25 mg PO BID PRN (Reason: hallucinations) triamcinolone acetonide 0.025 % cream topical BID amlodipine 10 mg tablet 10 mg PO DAILY buspirone 10 mg tablet 10 mg PO BID metoprolol succinate 25 mg tablet extended release 24 hr 25 mg PO DAILY lisinopril 40 mg tablet 40 mg PO DAILY fluoxetine 20 mg capsule 20 mg PO DAILY pregabalin 300 mg capsule 300 mg PO BID insulin glargine-yfgn 100 unit/mL (3 mL) insulin pen 22 unit subcut DAILY Follow Up/Referrals: Provider,Not a Local [Primary Care Provider] - Stand Alone [facility]: [facility] Inst[facility]
[2023-07-05] MEDS: cephALEXin 500 MG CAPSULE PO (00:52)
[2023-07-05] MEDS: cephALEXin 500 MG CAPSULE 1000 MG PO (01:14)
--- NOTE | 2023-07-05 01:30 | ED.NURSE ---
report given to Swathi at [facility] in [place]. pt. will be transported via EMS. did talk to daughter who is POA about discharge instructions/planning.
--- NOTE | 2023-07-05 02:01 | ED.NURSE ---
report given to [facility]. pt. transported to [facility]
[2023-07-05 02:02] VITALS: BP 140/74; PULSE 79; RESP 18; TEMP 36.7; O2SAT 96
[2023-07-05 02:03] VITALS: BP 140/74; PULSE 79; RESP 18; TEMP 36.7
== END 2023-07-05 02:10 | disposition home or self-care (01) ==
PROVIDERS: Emergency Provider Emergency Medicine
DX: N39.0 Urinary tract infection, site not specified (principal); T83.098A Other mechanical complication of other urinary catheter, initial encounter
CPT/HCPCS: 51702; 81001; 87086; 87186; 99283; A9270